=== PATIENT | female | born 1945 | race Caucasian/White ===

== ENCOUNTER → 2019-07-02 | Outpatient (CLI) | payer MEDICARE, SELFPAY ==
[2017-06-25 15:40] VITALS: BMI 24.5
--- NOTE | 2019-07-02 13:55 | RAD_ITS ---
STUDY: X-RAY - LEFT FOOT CLINICAL: Female, 74 years old. Pain TECHNIQUE: 3 view(s) of the foot. COMPARISON: None. FINDINGS: There is no evidence of fracture or dislocation. There are advanced degenerative changes in the midfoot. There is pes planus noted. There are no radiodense foreign bodies. RAD/Foot min 3 Views IMPRESSION: No fracture or dislocation. Advanced degenerative changes in the midfoot. Pes planus. Electronically Signed: Rom Oreilly, at 14:38 EDT Tel , Service support ,
--- NOTE | 2019-07-02 13:55 | RAD_ITS ---
STUDY: X-RAY - RIGHT FOOT CLINICAL: Female, 74 years old. Pain TECHNIQUE: 3 view(s) of the foot. COMPARISON: None. FINDINGS: There is no evidence of fracture or dislocation. There are advanced degenerative changes in the midfoot. There is has clot is noted. There are no radiodense foreign bodies. RAD/Foot min 3 Views IMPRESSION: No fracture or dislocation of the right foot. Advanced degenerative changes in the midfoot. Pes planus. Electronically Signed: Rom Oreilly, at 14:26 EDT Tel , Service support ,
== END | disposition home or self-care (01) ==
PROVIDERS: Family Provider Family Medicine; PCP Family Medicine; Referring Provider Podiatrist; Visit Provider Podiatrist
DX: M19.071 Primary osteoarthritis, right ankle and foot (principal); M19.072 Primary osteoarthritis, left ankle and foot
CPT/HCPCS: 73630

== ENCOUNTER 2021-12-08 12:52 | Outpatient (CLI) | payer MEDICARE, OTHER, SELFPAY ==
[2021-12-13 18:07] LABS: Lyme IgG P18 Ab Absent (.); Lyme IgG P23 Ab Absent (.); Lyme IgG P28 Ab Absent (.); Lyme IgG P30 Ab Absent (.); Lyme IgG P39 Ab Absent (.); Lyme IgG P41 Ab Present (.); Lyme IgG P45 Ab Absent (.); Lyme IgG P58 Ab Absent (.); Lyme IgG P66 Ab Absent (.); Lyme IgG P93 Ab Absent (.); Lyme IgM P23 Ab Absent (.); Lyme IgM P39 Ab Absent (.); Lyme IgM P41 Ab Absent (.)
[2021-12-13 20:14] LABS: Lyme IgG WB Interpretation Negative (.); Lyme IgM WB Interpretation Negative (.)
== END 2021-12-08 23:59 | disposition short-term general hospital (02) ==
PROVIDERS: PCP Family Medicine; Referring Provider Physician Assistant; Visit Provider Physician Assistant
DX: S30.860A Insect bite (nonvenomous) of lower back and pelvis, initial encounter (principal); X58.XXXA Exposure to other specified factors, initial encounter
CPT/HCPCS: 36415; 86617

== ENCOUNTER 2022-01-24 12:43 | Outpatient (CLI) | payer MEDICARE, OTHER, SELFPAY ==
--- NOTE | 2022-01-24 12:50 | CT_ITS ---
STUDY: CT CHEST WITH CONTRAST REASON FOR EXAM: Female, 76 years old. Nonsmoker. Cough. MASS OF RT LUNG RADIATION DOSAGE (If Supplied By Facility): CTDIvol = ( 12.51 ) mGy, DLP = ( 501.21 ) mGycm TECHNIQUE: Transaxial imaging was performed following intravenous administration of IV 100mL Isovue-300. Multiplanar coronal and sagittal images were reformatted. Individualized dose optimization techniques were used for this CT. COMPARISON: None. FINDINGS: There is a 3.5 cm x 3.8 cm x 4.3 cm mass in the right upper lobe. This abuts the right hilar region. A neoplastic process should be ruled out. Biopsy is recommended. There is no demonstrated pleural abnormality. Normal heart and pericardium. Normal mediastinum. Normal hilar regions. Normal enhanced pulmonary arteries. There is atherosclerotic calcification of the aortic arch. There are multi-level degenerative changes of the thoracic spine. There is a 1.4 cm sclerosis seen in the posterior aspect of the T9 or T10 vertebrae at the level of the pedicle on the right side. Correlation with a bone scan is recommended. There is a 1 cm cyst in the medial inferior aspect of the right lobe of the liver. CT/Chest WITH Contrast IMPRESSION: 3.5 cm x 3.8cm x 4.3 cm mass in the right upper lobe. A neoplastic process should be ruled out. Biopsy recommended. Heterogeneous density in the posterior right T9 or T10 vertebrae. Correlation with the bone scan is recommended. Electronically Signed: Bigg Chris MD at 14:45 EST ,
[2022-01-24 13:21] LABS: CREATININE FINGERSTICK 0.7 mg/dL (0.55-1.02); EGFR FINGERSTICK > 60.0000 mL/min (>60)
== END 2022-01-24 23:59 | disposition home or self-care (01) ==
LOC: CT 12:48
PROVIDERS: PCP Family Medicine; Referring Provider Family Medicine; Visit Provider Family Medicine
DX: R91.8 Other nonspecific abnormal finding of lung field (principal)
CPT/HCPCS: 71260; Q9967

== ENCOUNTER 2022-02-06 08:32 | Outpatient (CLI) | payer MEDICARE, OTHER, SELFPAY ==
[2022-02-02 16:24] LABS: Absolute Lymphocyte Count 1.74 X10^3/uL (0.83-4.51); Absolute Neutrophil Count 4.4 X10^3/uL (2.0-7.7); Basophil# 0.05 X10^3/uL; Basophil% 0.8 % (0-1); Eosinophil# 0.03 X10^3/uL; Eosinophils% 0.5 % (0-5); Hematocrit 38.9 % (37-47); Hemoglobin 13.1 g/dL (12.0-15.0); Lymphocyte # 1.74 X10^3/ul (0.83-4.51); Lymphocyte % 26.1 % (19-41); Mean Corp Hgb Conc 33.7 g/dL (32-36); Mean Corpuscular Hgb 30.9 pg (27.0-32.0); Mean Corpuscular Volume 91.7 fL (81-99); Mean Platelet Vol. 10.2 fl (6.2-12.0); Monocyte# 0.44 X10^3/uL; Monocyte% 6.6 % (0-10); NRBC Flagged by Analyzer 0 % (0-5); Neutrophil # 4.39 X10^3/uL (2.7-7.7); Neutrophil % 65.8 % (47-70); Platelet Count 267 K/mm3 (150-450); RBC Distribution Width CV 12.1 % (11.6-14.6); RBC Distribution Width SD 40.6 fl (35.1-43.9); Red Blood Count 4.24 M/mm3 (4.2-5.4); White Blood Count 6.7 K/mm3 (4.4-11.0)
[2022-02-02 16:56] LABS: Anion Gap 4 (5-15); BUN 25 mg/dL (7-18); BUN/Creat Ratio 39.5 RATIO (10-20); Calcium,Total 9.2 mg/dL (8.5-10.1); Chloride 104 mmol/L (98-107); Creatinine, Serum 0.63 mg/dL (0.55-1.02); EST Glomerular Filtration Rate 97 mL/min (>60); Est Glom Filt Rate - Afr Amer 118 mL/min (>60); Glucose 142 mg/dL (74-106); Potassium 3.8 mmol/L (3.5-5.1); Sodium Level 138 mmol/L (136-145)
[2022-02-02 17:32] LABS: International Normalized Ratio 1.1; Partial Thromboplast Time 26.8 Seconds (24.1-36.2); Prothrombin Time (Protime)PT. 13.2 SECONDS (11.7-14.9)
[2022-02-06] VITALS (7 sets, daily range): BP systolic 109–182; BP diastolic 48–90; PULSE 52–60; RESP 16–18; TEMP 36.8; O2SAT 98–100; BMI 21.8
--- NOTE | 2022-02-06 | IMM_PTH ---
PATIENT: PAUL FENG LOC: [facility] U#:[id number] AGE/SX: 76/F ROOM: RE02/06/[address]: Dr. Tung Quach MD : 1945 BED: DIS: 02/06/2022 SPEC #: [id number] RECD: 02/06/22 13:44 STATUS: DONYA REThiago #: [id number] BILLY: 02/06/22 00:[address]: Tung Quach DEPT: IMMUNOHISTOCHEMISTRY RECD BY: Li Aldrich Tissues: Right lung, NOS Procedures: RCC (add) NAPSIN A (add) CK20 (add) CK5-6 (add) CK7 (add) CK8 (add) HEP PAR (add) SD (add) TTF1 (add) Pankeratin (add) P40 (add) ER (initial) PHYSICIAN & INSTITUTION [place] [phone] SPECIMEN INFORMATION: Tissue Source: Right lung Clinical Info: Right lung mass Specimen Number: [id number] CPT code: 52470, 33584 x11 METHODOLOGY: Deparaffinized sections of prefer/formalin-fixed tissue or PAP/DQ stained slides are incubated with monoclonal/polyclonal antibodies/oligonucleotide probes. Localization is made via biotin free immunoperoxidase method. Appropriate controls are performed and reacted as expected. Results on target cell population are indicated in the following table: RESULTS: ANTIBODY / CLONE RESULT ER (6F11) positive, focal and weak SD (1E2) negative AE1-3 (AE1/AE3/PCK26) positive CK7 (OV-TL12/30) positive CK8 (03exspU25) positive CK20 (KS20.8) positive, rare cells TTF-1 (8G7G3/1) positive Napsin A (Rabbit Polyclonal) positive HepPar (OCh1E5) negative RCC (PN-15) negative CK5-6 (D5 & 1684) negative P40 (BC28) positive, rare cells These tests were developed and their performance characteristics determined by [facility]. They may not have been cleared or approved by the U.S. Food and Drug Administration. The FDA has determined that such clearance or approval is not necessary. The above immunohistochemical/dualISH markers are ordered and reviewed by the Pathologist. INTERPRETATION: Right lung, CT-guided core biopsy: Non-small cell carcinoma, favor adenocarcinoma, consistent with lung primary. BRITTNEY:tanvir 02/08/2022
--- NOTE | 2022-02-06 08:36 | CT_ITS ---
PROCEDURE: CT GUIDED CORE NEEDLE BIOPSY OF A right upper lobe LUNG LESION INDICATION: Female, 76 years old. MASS ON RIGHT LUNG PHYSICIAN: Dr. SYLVESTER Antonio CONSENT: Written informed consent was obtained having explained the risks, benefits and alternatives in detail with the patient who accepted the risks and agreed to proceed. Laboratory review and clinical assessment was performed. CONSCIOUS SEDATION PROTOCOL: The Drugs used were: 2 mg Versed, IV., and 50 mcg Fentanyl, IV. The sedation time was: 15 minutes. The conscious sedation protocol was independently monitored. RADIATION DOSAGE (If Supplied By Facility): CTDIvol = ( 16 ) mGy, DLP = ( 624.53 ) mGycm Individualized dose optimization techniques were used for this CT. TECHNIQUE: The patient was placed in the left side down decubitus position. A noncontrast CT was performed to localize the lesion in the right upper lobe . The skin surface was prepped and draped in a sterile fashion. 1% lidocaine was used for local anesthesia. Using CT guidance, a 20-gauge coaxial biopsy device was advanced to the periphery of the lesion. A total of 4 core specimens were obtained. The specimens were placed in a formalin solution. A post procedure CT demonstrated no adverse sequelae or pneumothorax. The patient tolerated the procedure well without adverse event. A negative biopsy does not exclude malignancy. Further imaging or clinical followup based on patient condition and degree of clinical suspicion for malignancy. Suggest rebiopsy, if biopsy results do not match with clinical scenario. CT/Biopsy/Inj or Needle Placement IMPRESSION: 1. CT directed core needle biopsy of the right upper lobe nodule using CT image guidance with image documentation as described. Pathology results are pending. 2. Conscious Sedation protocol utilized with independent monitoring. Electronically Signed: Bigg Chris MD at 11:51 EDT ,
--- NOTE | 2022-02-06 09:30 | ASPIGT_PTH ---
PATIENT: PAUL FENG LOC: [facility] U#:[id number] AGE/SX: 76/F ROOM: RE02/06/[address]: Dr. Tung Quach MD : 1945 BED: DIS: 02/06/2022 SPEC #: [id number] RECD: 02/06/22 10:00 STATUS: DONYA MONTAGUE #: [id number] BILLY: 02/06/22 09:[address]: Tung Quach DEPT: SURGICAL PATHOLOGY RECD BY: Raegan Caba Tissues: Lung, NOS Procedures: FNA Specimen Adequacy Special Stain Group II Surgery Specimen Level IV Imprint (control) HEADER OPERATION: CT-guided right lung biopsy PRE-OP DIAGNOSIS: Right lung mass TISSUE SUBMITTED: Right lung 20-gauge core biopsy x4 MICROSCOPIC DIAGNOSIS Right lung mass, CT-guided core biopsy: Non-small cell carcinoma, favor adenocarcinoma, consistent with lung primary. See comment. BRITTNEY:tanvir 02/07/2022 COMMENT The specimen is evaluated at the time of biopsy by Dr. Alvarez. Immediate Evaluation = Malignant cells present derived from non-small cell carcinoma. Immunohistochemistry ([id number]) supports the above diagnosis. Molecular studies on the tumor can be performed if clinically indicated. Please notify the laboratory if they are needed. Case has been reviewed in consultation with Dr. Carter who concurs with the above diagnosis. IDC:[email or web address] MICROSCOPIC DESCRIPTION Slides are reviewed. GROSS DESCRIPTION Received in fixative is one container labeled with the patient's name and designated right lung. The specimen consists of multiple irregular and elongated fragments of terrell tissue that in aggregate measure 1.3 x 0.2 x <0.1 cm. The specimen is totally submitted in one cassette. Two touch imprints are prepared at the time of core biopsy. / AM:tanvir 02/06/2022 TC:0 CPT: 65827, 75210 ADDENDUM ADDENDUM ADDENDUM ADDENDUM ADDENDUM ADDENDUM ADDENDUM ADDENDUM ADDENDUM ADDENDUM ADDENDUM ADDENDUM ADDENDUM ADDENDUM 02/22/2022 09:41 ADDENDUM 02/22/2022 09:41 ADDENDUM 02/22/2022 09:41 ADDENDUM 02/22/2022 09:41 ADDENDUM 02/22/2022 09:41 PD-L1 (KEYTRUDA) IMMUNOHISTOCHEMICAL ANALYSIS FROM [facility] RESULTS: Tumor proportion score: <1% / Negative [facility] NEXT GENERATION SEQUENCING GENE FUSION PANEL FROM [facility] INTERPRETATION: NEGATIVE: No pathogenic gene fusions detected involving ALK, MERI, BRAF, CCND1, EGFR, FGFR1, FGFR2, FGFR3, MET, NRG1, NTRK1, NTRK2, NTRK3, PPARG, RAF1, RET, ROS1 or THADA. Tumor Cellularity: 10-20% Tumor Type: Non-small cell lung carcinoma. Please see complete report in e-chart or EMR
[2022-02-06] MEDS: Midazolam 2 MG/2 ML Syringe IV (09:47)
[2022-02-06] MEDS: Lidocaine 2% (20 ml mdv) 20 ML Vial INFILT (09:47)
[2022-02-06] MEDS: fentaNYL 100 MCG/2 ML Ampul IV (09:47)
--- NOTE | 2022-02-06 10:00 | RAD_ITS ---
ACR Level 3 findings have been noted. An addendum which confirms receipt of the report will follow. HISTORY: 0945 -- Immediately post lung biopsy. TECHNIQUE: XR Chest 2 Views. # of images incl. paperwork: 4. COMPARISON: CT 01/24/2022. FINDINGS: CARDIOMEDIASTINAL STRUCTURES: Cardiac silhouette not enlarged. Mediastinal contour unremarkable with calcification of the aorta. LUNGS: Round mass in the right midlung again seen. PLEURA: Mild right apical pneumothorax. OSSEOUS STRUCTURES: Degenerative change. RAD/Chest Insp/Exp 2 View IMPRESSION: Mild right apical pneumothorax status post biopsy of right lung mass. at 1101 Reported and signed by: Johanne Sheridan MD Electronically Signed: Johanne Sheridan MD at 11:00 EDT ,
--- NOTE | 2022-02-06 12:00 | RAD_ITS ---
STUDY: X-RAY CHEST REASON FOR EXAM: Female, 76 years old. Pneumothorax -- 2 hours post lung biopsy TECHNIQUE: AP inspiration and expiration views. COMPARISON: Comparison is made with prior study done earlier in the day. FINDINGS: Stable small right apical pneumothorax. The patient is asymptomatic. RAD/Chest Insp/Exp 2 View IMPRESSION: Stable small right apical pneumothorax. The patient is asymptomatic. Electronically Signed: Bigg Chris MD at 12:45 EDT ,
== END 2022-02-06 23:59 | disposition home or self-care (01) ==
LOC: LAB 08:35
PROVIDERS: PCP Family Medicine; Referring Provider Family Medicine; Visit Provider Family Medicine
DX: C34.11 Malignant neoplasm of upper lobe, right bronchus or lung (principal); E11.65 Type 2 diabetes mellitus with hyperglycemia; I70.0 Atherosclerosis of aorta; E78.00 Pure hypercholesterolemia, unspecified; I10 Essential (primary) hypertension; Z79.899 Other long term (current) drug therapy; Z79.84 Long term (current) use of oral hypoglycemic drugs
CPT/HCPCS: 32408; 36415; 71046; 77012; 80048; 85025; 85610; 85730; 88172; 88305; 88313; 88341; 88342; J7040

== ENCOUNTER 2022-08-07 13:20 | Emergency (ER) | payer MEDICARE, OTHER, SELFPAY ==
[2022-08-07 13:21] VITALS: BP 150/90; PULSE 79; RESP 16; TEMP 36.3; O2SAT 99; BMI 20.7
[2022-08-07 14:20] VITALS: BP 185/88; PULSE 72; RESP 18
--- NOTE | 2022-08-07 15:11 | EKG12_ITS ---
Test Reason : CP Blood Pressure : / mmHG Vent. Rate : 078 BPM Atrial Rate : 078 BPM P-R Int : 182 ms QRS Dur : 132 ms QT Int : 416 ms P-R-T Axes : 054 -63 016 degrees QTc Int : 474 ms Normal sinus rhythm Right bundle branch block Left anterior fascicular block Bifascicular block Inferior infarct , age undetermined Abnormal ECG Confirmed by ANALILIA CHAVEZ, PAULINE ([id number]), general expeditor JOHN DEE ([id number]) on 08/09/2022 1:42:53 PM Referred By: Confirmed By:PAULINE BILLINGSLEY MD
--- NOTE | 2022-08-07 15:11 | RAD_ITS ---
INDICATION: chest pain EXAMINATION/TECHNIQUE: X-RAY - XR Chest 1 View COMPARISON: 02/06/2022.. FINDINGS: LINES/DEVICES: None. LUNGS: Soft tissue density visualized along the medial aspect of the right hemothorax consistent with the right middle lobe collapse that can be explained by the previously visualized mass encircling the right middle lobe bronchi thus most likely causing compression or infiltration fundus of the the right middle lobe collapse. Prominence of the right hilum is visualized, linear streaky opacities visualized in the right hilum. Haziness overlying the right hemithorax and right costophrenic angle is seen. The left hemithorax demonstrates unremarkable aeration. Biapical prominence is seen. MEDIASTINUM AND CARDIOVASCULAR STRUCTURES: Cardiac silhouette is unremarkable. BONES AND SOFT TISSUES: Unremarkable. Degenerative bone changes. RAD/Chest 1 View (Portable) IMPRESSION: Suggestion of right middle lobe collapse secondary to the previous visualized mass. Electronically Signed: Berny Koehler MD at 15:43 EDT ,
--- NOTE | 2022-08-07 15:19 | ED.VIS.CHEST ---
HPI History of Present Illness Chief Complaint: Chest Pain Informant: patient Onset/Context/Timing Onset: - (Sunday) Activity at onset: gradual Timing: Intermittent Quality: Positive for Pain Location: Substernal Current Severity: Gone Maximum Severity: Mild Worsened By: Nothing Relieved By: Nothing Associated Symptoms: Negative for Nausea, Vomiting, Diaphoresis, Dyspnea, Cough, Fever, Lightheadedness, Acid Reflux or Palpitations Narrative Narrative: 77-year-old female history of hypertension, diabetes, stage II lung cancer non-small cell and transient A. fib. Patient recently underwent partial lung resection of her right lung done at the [facility] June 27. She was hospitalized for several days. Had transient A. fib but that is since resolved. Sunday had her second COVID booster. Overnight Sunday morning she had intermittent episodes of chest discomfort. Primarily anterior. She also had chills that she thought she was a getting her immune response to her booster. Also describes it as chest tightness she is never had a DVT or PE. She denies any pleuritic chest pain. She denies any hemoptysis. Denies any leg pain or swelling. Prior Similar Symptoms: No Recent Illness/Hospitalization: Yes CVD Risk Factors: Positive for Hypertension and Diabetes; Negative for Hypercholesterolemia or Smoking PE Risk Factors: Positive for Recent Immobilization; Negative for Recent Travel/Surgery, Prior DVT or PE, Cancer or OCP + Smoking + >/=35 TAD Risk Factors: Negative for Marfan's Syndrome PFSH PFS Home Medications lisinopril 10 mg tablet (Zestril) 10 mg PO DAILY #30 tabs 06/25/17 [Rx Last Taken 02/06/22] rosuvastatin 10 mg tablet 10 mg PO QHS 06/25/17 [History Last Taken 06/24/17] alendronate 70 mg tablet 70 mg PO QWEEK 02/06/22 [History Last Taken Unknown] metformin 500 mg tablet 500 mg PO BID 02/06/22 [History Last Taken Unknown] Allergy/AdvReac Type Severity Reaction Status Date / Time ciprofloxacin [From Cipro] Allergy Other Verified 08/07/22 13:23 meperidine [From Demerol] Allergy Rash Verified 08/07/22 13:23 Social History Smoking Status: Never smoker ROS ROS ED ROS Narrative Denies recent illness. Chest discomfort Sunday. Nonexertional. Review of Systems ROS Unobtainable: Denies due to encephalopathy Constitutional Constitutional ED: Reports chills; Denies fever(s) Eyes Eyes: Reports none ENT ENT ED: Denies ear pain Cardiovascular Cardiovascular: Reports chest pain; Denies palpitations or racing heartbeat Respiratory/Chest Respiratory/Chest: Denies cough or dyspnea Gastrointestinal Gastrointestinal: Denies abdominal pain Genitourinary Genitourinary ED: Denies dysuria or hematuria Musculoskeletal Musculoskeletal: Denies arthralgias Integumentary Denies abscess Neurologic Neurologic: Denies headache(s) Psychiatric Psychiatric: Denies anxiety Endocrine Endocrinology: Denies cold intolerance Hematologic/Lymphatic Hematologic/Lymphatic: Denies easy bleeding Allergic/Immunologic Allergic/Immunologic ED: Denies mouth swelling EXAM Physical Exam Narrative Exam Narrative: Since had no fever no acute distress vital signs stable afebrile. Pulse ox 90% on room air no signs of hypoxia. H EENT exam unremarkable. Neck nontender no JVD no lymphadenopathy. Lungs clear to auscultation bilaterally. Heart regular rate and rhythm rate about 80 no murmur. Abdomen soft nontender. Chest were nontender. Moving all 4 extremities. Equal symmetrical radial pulses. Legs nontender, no edema no calf tenderness. No cords. Neurologically she is awake and alert. Const Vital Signs: 08/07/22 13:21 08/07/22 15:06 08/07/22 14:20 Temperature 97.4 F L Temperature Source Temporal Pulse Rate 79 72 Respiratory Rate 16 18 Respiratory Effort Normal Non-Labored Blood Pressure 150/90 H 185/88 H Blood Pressure Mean 110 120 Pulse Ox 99 Oxygen Delivery Method Room Air 08/07/22 15:11 08/07/22 16:44 Temperature Temperature Source Pulse Rate 67 Respiratory Rate 16 Respiratory Effort Blood Pressure 143/87 H Blood Pressure Mean 105 Pulse Ox 100 Oxygen Delivery Method Room Air Room Air Positive well nourished and well developed; Negative for obese, cachectic, contractures or unkempt General Appearance ED: well developed and NAD; Negative for unkempt, cachectic, contractures or pallor Nutritional Appearance: Negative for cachectic or obese HEENT Reports moist mucous membranes normocephalic and atraumatic; Negative for trauma or tenderness Eyes PERRL and EOMs intact bilaterally General Eye ED: Negative for pale conjunctiva, scleral icterus or other Neck no lymphadenopathy, supple and no JVD General: Negative for tenderness Chest Wall inspection of chest normal and palpation of chest normal Chest: Negative for tenderness Resp normal respiratory effort and clear to auscultation bilaterally Effort and Inspection: Negative for respiratory distress Auscultation: Negative for rales, rhonchi or wheezes Cardio regular rate, regular rhythm, S1 normal heart sound, S2 normal heart sound and no murmurs Rate: Negative for bradycardia Rhythm: Negative for abnormal rhythm GI normal to inspection, nondistended, normoactive bowel sounds, soft to palpation, non-tender, non-distended and no masses Auscultation: Negative for hyperactive bowel sounds Palpation: Negative for splenomegaly Back/Spine no CVA tenderness and no thoracic nor lumbar tenderness General Back: Negative for CVA tenderness Cervical Spine: Negative for cervical spine tenderness Extremity normal to inspection General Extremety ED: Negative for edema General Extremity: Negative for edema Neuro oriented x3 and CN's II-XII intact bilaterally Sensorium / Orientation: awake, alert, oriented to person, oriented to place and oriented to time; Negative for confused, lethargic or stuporous Motor Exam: strength 5/5 throughout Psych mental status grossly normal Appearance: Negative for unkempt Attitude: No agitated Mood & Affect: Negative for depressed, anxious or tearful Skin no rashes or lesions noted and no wounds General Skin Exam: Negative for jaundice or pallor Rashes: No rashes noted Trauma: Negative for abrasion MDM MDM MDM Narrative Medical decision making narrative: 71-year-old female with atypical chest pain. Rule out cardiac etiology. My clinical suspicion is low for that. Is not exertional and she has no history of coronary disease. She has had recent lung surgery due to a cancer and transient A. fib. Consider blood clot also. Cardiac work-up will be done along with a D-dimer. Repeat exam patient is doing well at 5:50 PM. She will be discharged home. Lab Data Attestation: I reviewed the patient's lab results. Lab results narrative: CBC shows white count 4.3. H&H 13.8 and 40.8. Electrolytes unremarkable gap of 6 BUN of 20 creatinine 0.6. Glucose 102. Troponin 19. D-dimer elevated 1.41 therefore a CTA of the chest to be obtained. Chest x-ray shows chronic changes no acute process. CTA shows no PE. However discussed with patient possible bony metastases and thoracic spine. Labs: Laboratory Results - last 24 hr 08/07/22 08/07/22 08/07/22 15:10 15:10 15:10 WBC 4.3 L RBC 4.27 Hgb 13.8 Hct 40.8 MCV 95.6 MCH 32.3 H MCHC 33.8 RDW Std Deviation 43.6 RDW Coeff of Medardo 12.4 Plt Count 253 MPV 9.6 Immature Gran % (Auto) 0.200 Neut % (Auto) 56.9 Lymph % (Auto) 29.8 [place] % (Auto) 11.9 H Eos % (Auto) 0.7 Baso % (Auto) 0.5 Absolute Neuts (auto) 2.5 Absolute Lymphs (auto) 1.28 Nucleated RBC % 0 D-Dimer Quant (PE/DVT) 1.41 H* Sodium 140 Potassium 4.0 Chloride 105 Carbon Dioxide 29.0 Anion Gap 6 BUN 20 H Creatinine 0.64 Estim Creat Clear Calc 49.69 Est GFR (MDRD) Af Amer 115 Est GFR (MDRD) Non-Af 95 BUN/Creatinine Ratio 31.1 H Glucose 102 Calcium 9.7 Troponin I High Sens 19 Radiography Chest X-Ray - ED: 1 View, Read by ED Physician, Read by Radiologist, Normal, Heart, Lungs, Mediastinum, Bony Structures, No Acute Disease and Chronic Changes Diagnostic Testing: Clinical Impression(s) from Imaging Studies Chest X-Ray 08/07/22 15:11 IMPRESSION: Suggestion of right middle lobe collapse secondary to the previous visualized mass. Electronically Signed: Berny Koehler MD at 15:43 EDT Reading Location ID and State: [facility] / [place] Tel , Service support , Chest CTA 08/07/22 16:48 IMPRESSION: 1. No evidence of pulmonary embolus. 2. No aortic dissection or aneurysm. 3. Status post resection of the right middle lobe. There is residual soft tissue density adjacent to the right hilum in the right upper lobe. Question residual tumor. 4. Right pleural effusion not previously noted. 5. Mildly increased mediastinal lymphadenopathy when compared to prior study 6. Question metastatic process involving the T10 vertebra. This is becoming more extensive when compared to prior study. Electronically Signed: Jean Funez DO at 17:24 EDT Reading Location ID and State: [address] [place] [address] Tel [phone], Service support , NoChest x-ray, portable, single view interpreted by myself and the radiologist shows some middle lobe collapse consistent with a prior mass. Trait. No pneumothorax. Chronic changes no acute process. Rhythm Strip Rhythm Strip: Sinus Rhythm Rate: 78 Ectopy: None EKG Initial EKG: Attestation: I personally reviewed and interpreted this EKG as follows: Interpretation: Sinus Rhythm and No Acute Injury Pattern Comments: Normal sinus rhythm rate of 78 no acute signs of [place] or ischemia. Right bundle branch block. Left anterior fascicular block. Unchanged from prior EKG from 2017. The bifascicular block is new. Discharge Plan Triage Chief Complaint: Chest Pain ED Provider: Reginaldo Chavez Dx/Rx/DC Orders Clinical Impression: Chest pain of uncertain etiology, History of lung cancer, History of atrial fibrillation, History of diabetes mellitus Instructions: ED Chest Pain, Uncertain Cause Prescriptions: No Action rosuvastatin 10 MG tablet 10 mg PO QHS Label Comments: CHOLESTEROL lisinopril [Zestril] 10 MG tablet 10 mg PO DAILY Qty: 30 0RF metformin [Glucophage] 500 mg Tablet 500 mg PO BID alendronate 70 mg Tablet 70 mg PO QWEEK Primary Care Provider: Tung Quach Referrals: Tung Quach MD [Primary Care Provider] - As Needed Activity Restrictions/Additional Instructions: Follow-up with your primary care physician Your test today were unremarkable other than a questionable lesion on your thoracic spine seen on the CAT scan which will need further evaluation if this was not already known. Disposition Disposition: Home, Self Care
[2022-08-07 15:49] LABS: Absolute Lymphocyte Count 1.28 X10^3/uL (0.83-4.51); Absolute Neutrophil Count 2.5 X10^3/uL (2.0-7.7); Basophil# 0.02 X10^3/uL; Basophil% 0.5 % (0-1); Eosinophil# 0.03 X10^3/uL; Eosinophils% 0.7 % (0-5); Hematocrit 40.8 % (37-47); Hemoglobin 13.8 g/dL (12.0-15.0); Lymphocyte # 1.28 X10^3/ul (0.83-4.51); Lymphocyte % 29.8 % (19-41); Mean Corp Hgb Conc 33.8 g/dL (32-36); Mean Corpuscular Hgb 32.3 pg (27.0-32.0); Mean Corpuscular Volume 95.6 fL (81-99); Mean Platelet Vol. 9.6 fl (6.2-12.0); Monocyte# 0.51 X10^3/uL; Monocyte% 11.9 % (0-10); NRBC Flagged by Analyzer 0 % (0-5); Neutrophil # 2.45 X10^3/uL (2.7-7.7); Neutrophil % 56.9 % (47-70); Platelet Count 253 K/mm3 (150-450); RBC Distribution Width CV 12.4 % (11.6-14.6); RBC Distribution Width SD 43.6 fl (35.1-43.9); Red Blood Count 4.27 M/mm3 (4.2-5.4); White Blood Count 4.3 K/mm3 (4.4-11.0)
[2022-08-07 15:51] LABS: Anion Gap 6 (5-15); BUN 20 mg/dL (7-18); BUN/Creat Ratio 31.1 RATIO (10-20); Calcium,Total 9.7 mg/dL (8.5-10.1); Chloride 105 mmol/L (98-107); Creatinine, Serum 0.64 mg/dL (0.55-1.02); EST Glomerular Filtration Rate 95 mL/min (>60); Est Glom Filt Rate - Afr Amer 115 mL/min (>60); Estimated Creatinine Clearance 49.69 ml/min; Glucose 102 mg/dL (74-106); Sodium Level 140 mmol/L (136-145); Troponin-I HS (w/2H Reflex) 19 pg/mL (3.0-54.0)
[2022-08-07 16:14] LABS: D-Dimer Quantitative (DVT/PE) 1.41 FEU/ug/m (0.27-0.49)
[2022-08-07 16:44] VITALS: BP 143/87; PULSE 67; RESP 16; O2SAT 100
--- NOTE | 2022-08-07 16:48 | CT_ITS ---
STUDY: CTA CHEST REASON FOR EXAM: Female, 77 years old. Elevated d-dimer. RADIATION DOSAGE (If Supplied By Facility): CTDIvol = ( 5.53 ) mGy, DLP = ( 180.04 ) mGycm TECHNIQUE: The examination was performed with the intravenous administration of IV 100mL Isovue-370. Post-processing of the angiographic images was performed, with multiplanar reformation and 3D reconstruction. Individualized dose optimization techniques were used for this CT. COMPARISON: Chest, 08/07/2022. CT of the chest, 01/24/2022. FINDINGS: Normal enhancement of the main pulmonary artery and right and left pulmonary arteries. Normal enhancement of the bilateral peripheral pulmonary arteries. There is no demonstrated pulmonary embolism. Atherosclerotic tortuosity of the thoracic aorta without aneurysm. There is no demonstrated aortic dissection. Normal heart and pericardium. Minimal coronary artery calcifications. Mildly increased mediastinal lymphadenopathy when compared to prior study. Normal hilar regions. Normal visualized trachea and bronchi. The lungs are well expanded. There is surgical absence of the right middle lobe. There is associated thickening and stranding along the oblique fissure. The anterior hilar region the site of the surgical resection, there is soft tissue densities in the upper lobe which may represent residual mass. Similar soft tissue density extends posteriorly along the oblique fissure. There is a moderate right pleural effusion with subsegmental atelectasis. Normal chest wall structures. There are degenerative changes of thoracic spine. There is a sclerotic focus in the right posterior T10 vertebra extending into the pedicle. There is a cyst in segment 1 of the liver which appears unchanged. CT/CTA Chest W/WO Contrast IMPRESSION: 1. No evidence of pulmonary embolus. 2. No aortic dissection or aneurysm. 3. Status post resection of the right middle lobe. There is residual soft tissue density adjacent to the right hilum in the right upper lobe. Question residual tumor. 4. Right pleural effusion not previously noted. 5. Mildly increased mediastinal lymphadenopathy when compared to prior study 6. Question metastatic process involving the T10 vertebra. This is becoming more extensive when compared to prior study. Electronically Signed: eJan Funez DO at 17:24 EDT Reading Location ID and State: [address] [place] [address] Tel [phone], Service support ,
[2022-08-07 17:23] LABS: Reflex Troponin-HS? (from REC) Y
[2022-08-07 17:56] LABS: Troponin-I HS 7 pg/mL (3.0-54.0)
[2022-08-07 18:12] VITALS: BP 159/69; PULSE 72; RESP 16; O2SAT 97
== END 2022-08-07 18:13 | disposition home or self-care (01) ==
PROVIDERS: Emergency Provider Emergency Medicine; PCP Family Medicine; Visit Provider Emergency Medicine
DX: R07.9 Chest pain, unspecified (principal); I48.91 Unspecified atrial fibrillation; E11.9 Type 2 diabetes mellitus without complications; I10 Essential (primary) hypertension; Z79.899 Other long term (current) drug therapy; Z79.84 Long term (current) use of oral hypoglycemic drugs
CPT/HCPCS: 71045; 71275; 80048; 84484; 85025; 85379; 93005; 99284; Q9967; A4216

== ENCOUNTER → 2022-09-28 | Outpatient (CLI) | payer MEDICARE, OTHER, SELFPAY ==
--- NOTE | 2022-09-28 16:25 | RAD_ITS ---
STUDY: X-RAY - PELVIS AND RIGHT HIP REASON FOR EXAM: Female, 77 years old. HIP PAIN TECHNIQUE: 3 views of the pelvis and hip. COMPARISON: None. FINDINGS: There is a non-specific bowel gas pattern. Normal visualized soft tissue structures. Normal bilateral iliac wings, sacroiliac joints and visualized sacrum. Normal bilateral superior and inferior pubic rami. Normal pubic symphysis. Normal bilateral ischial tuberosities. Normal visualized femoral head. Normal acetabulum. Normal hip joint. RAD/HIP, UNI W/ Pelvis 2-3 Views IMPRESSION: Normal x-ray examination of the pelvis and hip. Electronically Signed: Anthony Mcdonald MD at 18:01 EST ,
== END | disposition home or self-care (01) ==
LOC: MTRAD 16:24
PROVIDERS: PCP Family Medicine; Referring Provider Nurse Practitioner Family; Visit Provider Nurse Practitioner Family
DX: M25.551 Pain in right hip (principal)
CPT/HCPCS: 73502

== ENCOUNTER → 2023-04-11 | Outpatient (CLI) | payer MEDICARE, OTHER, SELFPAY ==
--- NOTE | 2023-04-11 18:12 | STRESSREP ---
Stress Test Report Exercise myocardial perfusion stress test. 78-year-old lady with a history of chest pain Stress protocol: Resting EKG demonstrates sinus bradycardia with a right bundle branch block and a rate of 54 bpm resting blood pressure is 122/84 mmHg. The patient exercised according to the regular Alex protocol for a total duration of 6 minutes and 10 seconds attaining a maximum heart rate of 126 bpm which was 88% of maximum predicted heart rate; the maximum workload was 7.4 metabolic equivalents. At rest there were no ST or T wave changes noted to suggest ischemia and at peak exercise upsloping ST changes only were noted which did not meet the criteria for ischemia. No clinical angina was noted the test was terminated due to the target heart rate being achieved/fatigue. The peak blood pressure was 150/84 mmHg. Rate-pressure product was 16,500. Myocardial perfusion protocol. 11.5 mCi of technetium 99m sestamibi was injected at rest. The patient exercised according to regular Alex protocol for total duration of 6 minutes and 10 seconds and at peak exercise 33.8 mCi of technetium 99m sestamibi was injected stress images were obtained stress and rest images were reconstructed in comparing the short axis vertical long and horizontal long axis. Gated images were also obtained. Perfusion SPECT analysis: Review of the stress images demonstrate normal uptake of tracer noted in all areas of the myocardium. The resting images similarly demonstrate normal uptake of tracer noted in all areas of the myocardium. No areas of reversibility are noted to suggest ischemia no previous infarct was noted. Gated SPECT analysis: The gated ejection fraction is 84%. Conclusion: Normal exercise myocardial perfusion stress test at a moderate workload Preserved ejection fraction.
== END | disposition home or self-care (01) ==
LOC: CVS 07:14
PROVIDERS: PCP Family Medicine; Referring Provider Internal Medicine Cardiovascular Disease; Visit Provider Internal Medicine Cardiovascular Disease
DX: R07.9 Chest pain, unspecified (principal); E11.9 Type 2 diabetes mellitus without complications; R06.00 Dyspnea, unspecified; R06.02 Shortness of breath; I10 Essential (primary) hypertension; E78.5 Hyperlipidemia, unspecified
CPT/HCPCS: 78452; 93017; A9500; A4216

== ENCOUNTER → 2024-02-14 | Outpatient (CLI) | payer MEDICARE, OTHER, SELFPAY ==
[2024-02-14 12:04] LABS: Absolute Lymphocyte Count 1.32 X10^3/uL (0.83-4.51); Absolute Neutrophil Count 2.9 X10^3/uL (2.0-7.7); Basophil# 0.04 X10^3/uL; Basophil% 0.9 % (0-1); Eosinophil# 0.02 X10^3/uL; Eosinophils% 0.4 % (0-5); Hematocrit 43.5 % (37-47); Hemoglobin 13.9 g/dL (12.0-15.0); Lymphocyte # 1.32 X10^3/ul (0.83-4.51); Lymphocyte % 28.6 % (19-41); Mean Corpuscular Hgb 29.5 pg (27.0-32.0); Mean Corpuscular Volume 92.4 fL (81-99); Mean Platelet Vol. 9.9 fl (6.2-12.0); Monocyte# 0.31 X10^3/uL; Monocyte% 6.7 % (0-10); NRBC Flagged by Analyzer 0 % (0-5); Platelet Count 211 K/mm3 (150-450); RBC Distribution Width CV 12.8 % (11.6-14.6); RBC Distribution Width SD 43.2 fl (35.1-43.9); Red Blood Count 4.71 M/mm3 (4.2-5.4); White Blood Count 4.6 K/mm3 (4.4-11.0)
[2024-02-14 12:33] LABS: Vitamin D,25 Hydroxy 81.9 ng/mL
[2024-02-14 12:56] LABS: ALB/GLOB Ratio 1.1 RATIO (0.9-2.4); AST(SGOT) 24 U/L (15-37); Alanine Aminotransfer ALT/SGPT 25 U/L (13-56); Albumin, Serum 3.6 g/dL (3.2-5.0); Alkaline Phosphatase 59 U/L (45-117); Anion Gap 6 (5-15); BUN 20 mg/dL (7-18); BUN/Creat Ratio 25.5 RATIO (10-20); Calcium,Total 8.9 mg/dL (8.5-10.1); Chloride 107 mmol/L (98-107); Cholesterol 151 mg/dL (200); Creatinine, Serum 0.78 mg/dL (0.55-1.02); EST Glomerular Filtration Rate 75 mL/min (>60); Est Glom Filt Rate - Afr Amer 91 mL/min (>60); Globulin 3.3 g/dL (2.2-4.2); Glucose 137 mg/dL (74-106); High Density Lipoprotein 56 mg/dL; Potassium 4.2 mmol/L (3.5-5.1); Protein, Total 6.9 g/dL (6.4-8.2); Sodium Level 141 mmol/L (136-145); Triglycerides 72 mg/dL; Very Low Density Lipoprotein 14 mg/dL (5-40)
[2024-02-14 15:58] LABS: Microalbumin,Random Urine 27.3 mg/L (NO RANGE EST.)
== END | disposition home or self-care (01) ==
LOC: MTLAB 10:03
PROVIDERS: PCP Family Medicine; Referring Provider Family Medicine; Visit Provider Family Medicine
DX: E11.9 Type 2 diabetes mellitus without complications (principal); I10 Essential (primary) hypertension; M81.0 Age-related osteoporosis without current pathological fracture; E55.9 Vitamin D deficiency, unspecified
CPT/HCPCS: 36415; 80053; 80061; 82043; 82306; 82570; 85025

== ENCOUNTER → 2024-09-29 | Outpatient (CLI) | payer MEDICARE, OTHER, SELFPAY | END | disposition home or self-care (01) | LOC: BFHLAB 13:58 | PROVIDERS: PCP Family Medicine; Referring Provider Family Medicine; Visit Provider Family Medicine | DX: R30.0 Dysuria (principal) | CPT/HCPCS: 87086; 87088 ==

== ENCOUNTER → 2025-03-16 | Outpatient (CLI) | payer MEDICARE, OTHER, SELFPAY | END | disposition home or self-care (01) | LOC: SL 20:00 | PROVIDERS: PCP Family Medicine; Referring Provider Family Medicine; Visit Provider Family Medicine | DX: G47.33 Obstructive sleep apnea (adult) (pediatric) (principal) | CPT/HCPCS: 95811 ==

== ENCOUNTER → 2025-06-02 | Outpatient (CLI) | payer MEDICARE, OTHER, SELFPAY | END | disposition home or self-care (01) | LOC: LABSPEC 08:07 | PROVIDERS: PCP Family Medicine; Visit Provider Nurse Practitioner Family | DX: N39.0 Urinary tract infection, site not specified (principal) | CPT/HCPCS: 87086; 87088 ==

== ENCOUNTER → 2025-06-15 | Outpatient (CLI) | payer MEDICARE, OTHER, SELFPAY ==
[2025-06-15 15:41] LABS: Hematocrit 40.7 % (37-47); Hemoglobin 13.3 g/dL (12.0-15.0); Immature Granulocytes Count 0.010 X10^3/uL (0.0-0.0); Mean Corp Hgb Conc 32.7 g/dL (32-36); Mean Corpuscular Volume 92.7 fL (81-99); Mean Platelet Vol. 9.9 fl (6.2-12.0); NRBC Flagged by Analyzer 0 % (0-5); Platelet Count 236 K/mm3 (150-450); RBC Distribution Width CV 13.2 % (11.6-14.6); RBC Distribution Width SD 45.0 fl (35.1-43.9); Red Blood Count 4.39 M/mm3 (4.2-5.4); White Blood Count 4.6 K/mm3 (4.4-11.0)
[2025-06-15 16:05] LABS: Creatinine, Urine (random) 21.20 mg/dL (28.00-217.00); Microalbumin,Random Urine < 12.0 mg/L (<20 mg/L)
[2025-06-15 16:22] LABS: AST(SGOT) 22 U/L (<=31); Alanine Aminotransfer ALT/SGPT 18 U/L (<=34); Albumin, Serum 4.4 g/dL (3.4-4.8); Alkaline Phosphatase 69 U/L (35-104); Anion Gap 12 (5-15); BUN 19 mg/dL (4-19); BUN/Creat Ratio 24.9 RATIO (10-20); Calcium,Total 9.7 mg/dL (7.6-11.0); Carbon Dioxide 25.5 mmol/L (21.0-32.0); Chloride 103 mmol/L (98-108); Cholesterol 176 mg/dL (<=200); Globulin 2.9 g/dL (2.2-4.2); Glucose 115 mg/dL (70-99); Low Density Lipoprotein Calc. 91 mg/dL; Potassium 4.4 mmol/L (3.3-5.1); Triglycerides 68 mg/dL; Very Low Density Lipoprotein 14 mg/dL (5-40); cholesterol:hdl ratio screen 2.46
[2025-06-15 16:27] LABS: Vitamin D,25 Hydroxy 81.4 ng/mL (30-100)
== END | disposition home or self-care (01) ==
LOC: MTLAB 11:58
PROVIDERS: PCP Family Medicine; Referring Provider Family Medicine; Visit Provider Family Medicine
DX: E11.9 Type 2 diabetes mellitus without complications (principal); I10 Essential (primary) hypertension; M81.0 Age-related osteoporosis without current pathological fracture; E55.9 Vitamin D deficiency, unspecified
CPT/HCPCS: 36415; 80053; 80061; 82043; 82306; 82570; 85025

== ENCOUNTER → 2025-08-03 | Outpatient (CLI) | payer MEDICARE, OTHER, SELFPAY ==
--- NOTE | 2025-08-03 16:19 | RAD_ITS ---
PROCEDURE: L/S SPINE MIN 4 VIEWS 08/03/2025 REASON FOR EXAM: LUMBER DDD TECHNIQUE: Procedure Code: [id number] Modality: DX Procedure: L/S SPINE MIN 4 VIEWS COMPARISON: None. FINDINGS: Anterolisthesis L4 on L5 by 3 mm. Multilevel degenerate changes predominantly at L3-L4 and L5-S1 where there is disc space narrowing, sclerotic endplates and facet joint arthropathy. No acute bony abnormalities. No spondylolysis. Vascular atherosclerotic calcifications of the aorta. Large amount of fecal load in the colon. RAD/L/S Spine Min 4 Views IMPRESSION: Anterolisthesis L4 on L5 by 3 mm. Multilevel degenerate changes predominantly at L3-L4 and L5-S1 where there is d isc space narrowing, sclerotic endplates and facet joint arthropathy. Reading Location: [id number]
== END | disposition home or self-care (01) ==
LOC: MTRAD 16:18
PROVIDERS: PCP Family Medicine; Referring Provider Clinical Nurse Specialist Adult Health; Visit Provider Clinical Nurse Specialist Adult Health
DX: M51.369 Other intervertebral disc degeneration, 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 or lower extremity pain (principal)
CPT/HCPCS: 72110

== ENCOUNTER → 2025-09-28 | Outpatient (CLI) | payer MEDICARE, OTHER, SELFPAY | END | disposition home or self-care (01) | LOC: LABSPEC 12:22 | PROVIDERS: PCP Family Medicine; Visit Provider Family Medicine | DX: R82.90 Unspecified abnormal findings in urine (principal) | CPT/HCPCS: 87086; 87088 ==

== ENCOUNTER → 2025-10-05 | Outpatient (CLI) | payer MEDICARE, OTHER, SELFPAY ==
--- OUTSIDE RECORDS SUMMARY | 2025-10-05 18:23 | XMS RPT_ITS | CCD ---
Author Organization [facility] Care Team Providers Care Dog Bather Name Role Phone TONY HICKS DPM Unavailable Unavailable TONY HICKS DPM Unavailable Unavailable TONY HICKS DPJessica Unavailable Unavailable MIMI QUACH Unavailable Unavailable PROVIDER, UNKNOWN Unavailable Unavailable Ama Ybarra Unavailable Lex Vogel Unavailable Unavailable Unavailable Unavailable Mimi Quach Primary Care Provider PHILOMENA CHAVEZ, DR MIMI Rawls Primary Care Physician Un available Facundo WALTON, Pamela Unavailable Unavailable Juanita Jj Unavailable Unavailable Mimi Quach Korin Colbert Unavailable Unavailable Juanita Lentz RN Unavailable Unavailable Miim Quach Primary Care Provider Facundo WALTON, Pamela Unavailable Unavailable Kim DO, Roahn A Unavailable Mimi Quach Primary Care Provider Mimi Quach Primary Care Provider Facundo WALTON, Pamela Unavailable Unavailable Juanita Lentz RN Unavailable Unavailable Kim DO, Rohan A Unavailable MIMI QUACH Primary Care Unavailable PROVIDER, UNKNOWN Referring Unavailable MIMI QUACH Primary Care Unavailable PROVIDER, UNKNOWN Referring Unavailable MIMI QUACH Primary Care Unavailable PROVIDER, UNKNOWN Referring Unavailable MIMI QUACH Primary Care Unavailable PROVIDER, UNKNOWN Referring Unavailable Dr. Mimi Quach Primary Care Provider [phone] Trupti Atkins Attending Provider UnavailCinthia Hewitt Attending Provider Unavailable Dr. Mimi Quach Referring Provider Dr. Christopher Connors Attending Provider [phone] Christopher Connors Referring Provider [phone] Christopher Connors Other Provider Philomena CHAVEZ, Mimi Her Primary Care Provider Facundo RN, Pamela Unavailable Unavailable Philomena CHAVEZ, Mimi Her Primary Care Provider Michele CHAVEZ, Angy Ang Primary Care Provider Philomena CHAVEZ, Mimi Her Primary Care Provider Michele CHAVEZ, Angy Ang Primary Care Provider HARMONY YOUNG Attending Unavailable CHANG RILEY Referring Unavailable TOMCHAK, MIMI Rawls Primary Care Unavailable HARMONY YOUNG Attending Unavailable CHANG RILEY Referring Unavailable TOMCHAKMIMI Primary Care Unavailable CHANG RILEY Referring Unavailable TOMCHAKMIMI Primary Care Unavailable CHANG RILEY Referring Unavailable TOMCHAK, MIMI Rawls Primary Care Unavailable CHANG RILEY Referring Unavailable TOMCHAK, MIMI Rawls Primary Care Unavailable CHANG RILEY Referring Unavailable TOMCHAK, MIMI Rawls Primary Care Unavailable CHANG RILEY Referring Unavailable TOMCHAK, MIMI Rawls Primary Care Unavailable CHANG RILEY Referring Unavailable TOMCHAK, MIMI Rawls Primary Care Unavailable CHANG RILEY Referring Unavailable TOMCHAK, MIMI Rawls Primary Care Unavailable CHANG RILEY Referring Unavailable TOMCHAK, MIMI Rawls Primary Care Unavailable CHANG RILEY Referring Unavailable TOMCHAK, MIMI Rawls Primary Care Unavailable CHANG RILEY Referring Unavailable TOMCHAK, MIMI Rawls Primary Care Unavailable Fast DO, Ferdinand Lesvia Primary Care Provider Dr. Angy Bautista MD Primary Care Provider Dr. Angy Bautista MD Attending Provider [phone] Angy Bautista MD Referring Provider [phone] Nilam Valenzuela Attending Provider [phone] DAKSHA, FERDINAND LESVIA Primary Care Unavailable RAQUEL SOLORZANO Attending Unavailable [facility] Consulting Unavai lable GERIS, SHADY Admitting Unavailable DEXETR GUNTER Attending Unavailable FAST, FERDINAND LESVIA Primary Care Unavailable HURLEYDEXTER BUTLERNA Attending Unavailable MIEDEL, ANGY E Primary Care Unavailable SARAHI SIMMONS Referring Unavailable MIEDEL, ANGY E Primary Care Unavailable MIEDEL, ANGY E Primary Care Unavailable TESTRAKE, DORY Referring Unavailable MIEDEL, ANGY E Primary Care Unavailable TESTRAKE, DORY Attending Unavailable MIEDEL, ANGY E Primary Care Unavailable SELF Referring Unavailable SARAHI SIMMONS Attending Unavailable MIEDEL, ANGY E Primary Care Unavailable MIEDEL, ANGY E Primary Care Unavailable MIEDEL, ANGY E Primary Care Unavailable MASCI, ROHAN A Referring Unavailable MASCIROHAN A Attending Unavailable MIEDEL, ANGY E Primary Care Unavailable MASCI, ROHAN A Referring Unavailable MIEDEL, ANGY E Primary Care Unavailable MASCI, ROHAN A Referring Unavailable HURLEYDEXTER BUTLERNA Referring Unavailable MIEDEL, ANGY E Primary Care Unavailable HURLEYNAINA BUTLERIANNA Referring Unavailable MIEDEL, ANGY E Primary Care Unavailable TESTRAKE, DORY Referring Unavailable KLEBER WILLINGHAM Attending Unavailable MIEDEL, ANGY E Primary Care Unavailable TESTRAKE, DORY Referring Unavailable GOLIASJUAN DAVIDNT Attending Unavailable MIEDEL, ANGY E Primary Care Unavailable FAST, FERDINAND LESVIA Primary Care Unavailable AXEL VIZCAINO Attending Unavailabl e Dr. Angy Bautista MD Primary Care Physician Nilam Valenzuela Attending Physician [phone] Dr. Angy Bautista MD Attending Physician Dr. Angy Bautista MD Referring Provider NP. Tanya Mahoney Attending Physician NP. Tanya Mahoney Referring Provider Angy Bautista Attending Unavailable Michele, Angy Referring Unavailable Miedel, Angy Primary Care Unavailable Nilam Esquivel Attending Unavailable Michele, Angy Primary Care Unavailable Mijose franciscoel, Angy Primary Care Unavailable Chantell Bautistah Attending Unavailable Eduinel Angy Attending Unavailable Miedel, Angy Referring Unavailable Miedel, Angy Primary Care Unavailable Angy Bautista Primary Care Unavailable Tanya Mahoney Attending Unavailable Tanya Mahoney Referring Unavailable Allergies Allergy Classification Reported Allergen(s) Allergy Type Date of Onset Reaction(s) Facility Lactose (2 sources) Lactose Drug Allergy 10-10-20 16 Other: See Comments [facility] Opioid Agonists (2 sources) Meperidine Drug Allergy 12-06-19 10 [facility] Work Phone: (11 sources) Ciprofloxacin; Translations: [Cipro *FLUOROQUINOLONE S*] Drug Allergy 01-08-20 19 Other (See Comments) [facility] Work Phone: Comment on above: heavinessw in legs (12 sources) Meperidine; Translations: [Demerol *ANALGESICS - OPIOID*] Drug Allergy 08-07-20 22 Rash [facility] Work Phone: (4 sources) Lactose *PHARMACEUTICAL ADJUVANTS*; Translations: [Lactose *PHARMACEUTICAL ADJUVANTS*] drug allergy [facility] Work Phone: Comment on above: bloating pain and ga s (20 sources) Lactose; Translations: [LACTOSE] Drug Allergy 10-10-20 Other: See Comments, Other (See Comments) [facility] Work Phone: (20 sources) Meperidine; Translations: [MEPERIDINE (PF)] Drug Allergy 12-06-19 10 [facility] Work Phone: (1 source) Ciprofloxacin Drug Allergy Rash [facility] (1 source) Meperidine Drug Allergy Rash [facility] (1 source) ALLERGIES NOT ON FILE; Translations: [ALLERGIES NOT ON FILE] Propensity to adverse reactions (disorder) [facility] 2 Repository (4 sources) Meperidine; Translations: [MEPERIDINE] Drug Allergy 08-17-20 [facility] Repository (3 sources) Ciprofloxacin; Translations: [CIPROFLOXACIN] Drug Allergy 01-08-20 [facility] Repository (1 source) Lactose Drug Allergy 08-17-20 [facility] Repository Medications Current Medications Medication Drug Class(es) Dates Sig (Normalized) Sig (Original) alendronic acid 70 mg oral tablet (20 sources) Bisphosphonate Start: 02-06-2022 End: 07-03-2025 take 1 tablet by mouth every week Comment on above: 70 mg one time a wee k. Take 70 mg by mouth one time a week. aspirin 81 mg chewable tablet (11 sources) Platelet Aggregation Inhibitor, Nonsteroidal Anti-inflammatory Drug Start: 05-29-2025 End: 06-19-2025 take 1 tablet by mouth once daily aspirin 81 mg chewable tablet Take 81 mg by mouth once daily. 05/29/2025 Active Start: 02-22-2011 End: 02-23-2022 take 1 tablet by mouth once daily aspirin, enteric coated (ECOTRIN LOW STRENGTH) 81 mg ORAL EC tablet Take 1 tablet by mouth once daily. 0 02/22/2011 02/23/2022 Discontinued Comment on above: Take 1 tablet by elizabeth th once daily. carvedilol 3.125 mg oral tablet (5 sources) alpha-Adrenergic Mat, beta-Adrenergic Mat Start: 05-31-2025 End: 07-30-2025 take 1 tablet by mouth twice daily carvediloL (COREG) 3.125 MG tablet Take 1 (one) tablet (3.125 mg total) by mouth 2 (two) times a day . 60 tablet 1 05/31/2025 07/30/2025 Active Start: 05-31-2025 End: 05-31-2025 take 1 dose by mouth every two hours at mealtime 3.125 mg, Oral, 2 times daily, First dose on 05/31/25 at 1100, Give carvedilol with food to reduce risk of hypotension / dizziness. Separate from admin of SHEN inhibitors by two hours. cholecalciferol 0.05 mg oral capsule (5 sources) Vitamin D Start: 01-16-2023 take 1 capsule by mouth once daily ciprofloxacin 250 mg oral tablet (2 sources) Quinolone Antimicrobial Start: 05-16-2022 End: 05-19-2022 take 1 tablet by mouth twice daily ciprofloxacin HCl (CIPRO) 250 mg tablet Take 1 tablet by mouth twice daily for 3 days. 6 tablet 0 05/16/2022 05/19/2022 Active Comment on above: Take 1 tablet by elizabeth th twice daily for 3 days. clopidogrel 75 mg oral tablet (5 sources) P2Y12 Platelet Inhibitor Start: 05-29-2025 End: 05-29-2026 take 1 tablet by mouth once daily clopidogreL (PLAVIX) 75 mg tablet Take 1 (one) tablet (75 mg total) by mouth daily . 30 tablet 11 05/29/2025 05/29/2026 Active codeine phosphate 2 mg/ml / guaiFENesin 20 mg/ml oral solution (13 sources) Opioid Agonist Start: 03-31-2022 End: 04-16-2022 take 5 mL by mouth every eight hours as needed for cough and cough codeine-guaiFENesi n (GUAIFENESIN AC) 10-100 mg/5 mL syrup Indications: Cough Take 5 mL by mouth three times daily as needed for up to 16 days. 236 mL 0 03/31/2022 04/16/2022 Active Start: 02-24-2022 End: 03-12-2022 take 5 mL by mouth every eight hours as needed for cough and cough codeine-guaiFENesin (GUAIFENESIN AC) 10-100 mg/5 mL syrup Indications: Cough Take 5 mL by mouth three times daily as needed for up to 16 days. 236 mL 0 02/24/2022 03/12/2022 Active Comment on above: Take 5 mL by mouth t hree times daily as needed for up to 16 days. enteric contrast (will be provided with radiology test) (1 source) Start: 08-05-2024 End: 08-06-2024 enteric contrast (will be provided with radiology test) Indications: Malignant neoplasm of unspecified part of unspecified bronchus or lung (HCC) For CT Chest Abdomen W IVCON order Administer, As Directed One Time Only, via Oral, Rectal, both Oral and Rectal, Enteric Tube, Stoma or Indwelling Catheter, Enteric Contrast as designated per enteric contrast guidelines 1 Each 08/05/2024 08/06/2024 Active Essential oils (5 sources) Start: 01-18-2023 Start: 01-18-2023 Essential oils Active TOPICAL January 18, 2023 1:00am Alternates beth, peppermint, balance (doterra blend) hydrOXYzine hydrochloride 25 mg oral tablet (1 source) Antihistamine Start: 01-06-2020 End: 06-05-2022 take 1 tablet by mouth every six hours hydrOXYzine hydrochloride 25 mg oral tablet ; 1 tab(s) orally every 6 hours Quantity: 6 Refills: 0 Ordered: 03-Jun-2022 FilemonMameKorinmaria teresa Lakhani Start: 06-Jan-2020 End: 05-Jun-2022 Status: Discontinued Generic Substitution Allowed Comments: May cause drowsiness. Alcohol may intensify this effect. Use care when operating dangerous machinery.Obtain medical advice before taking any non-prescription drugs as some may affect the action of this medication. Comment on above: May cause drowsiness . Alcohol may intensify this effect. Use care when operating dangerous machinery.Obtain medical advice before taking any non-prescription drugs as some may affect the action of this medication. 24 hr isosorbide mononitrate 30 mg extended release oral tablet (5 sources) Nitrate Vasodilator Start: 05-31-2025 End: 06-30-2025 take 1 tablet by mouth once daily isosorbide mononitrate (IMDUR) 30 MG 24 hr tablet Take 1 (one) tablet (30 mg total) by mouth daily . 30 tablet 05/31/2025 Active 24 hr metoprolol succinate 25 mg extended release oral tablet (20 sources) beta-Adrenergic Mat Start: 06-11-2023 End: 05-31-2025 take 1 tablet by mouth once daily Start: 01-18-2023 End: 06-11-2023 take 2 tablets by mouth once daily Metoprolol Succinate 50 mg tablet extended release 24 hr Discontinued 25 mg PO DAILY January 18, 2023 12:46pm June 11, 2023 4:24pm Start: 01-18-2023 End: 06-11-2023 take 25 mg by mouth once daily Metoprolol Succinate Di scontinued 25 MG PO DAILY January 18, 2023 12:46pm June 11, 2023 4:24pm Start: 01-01-2023 End: 07-03-2025 take 1 tablet by mouth once daily Metoprolol Succinate 50 mg tablet extended release 24 hr Discontinued 50 mg PO DAILY January 16, 2023 1:00am January 18, 2023 12:46pm Comment on above: Take 50 mg by mouth once daily. Multivitamin preparation (2 sources) Start: 01-16-2023 take 1 tablet by mouth once daily Multivitamin Active 1 TABLET PO DAILY January 16, 2023 1:00am Multivitamin tablet (3 sources) Start: 01-16-2023 Start: 01-16-2023 Multivitamin t ablet Active 1 {tbl} PO DAILY January 16, 2023 1:00am nitrofurantoin, macrocrystals 25 mg / nitrofurantoin, monohydrate 75 mg oral capsule (1 source) Nitrofuran Antibacterial Start: 06-03-2022 End: 06-07-2022 take 1 capsule by mouth twice daily at mealtime Macrobid 100 mg oral capsule ; 1 cap(s) orally 2 times a day x 5 days. Take with food. Quantity: 10 Refills: 0 Ordered: 03-Jun-2022 Korin Colbert Start: 03-Jun-2022 End: 07-Jun-2022 Generic Substitution Allowed Comments: Finish all this medication unless otherwise directed by prescriber.May discolor urine or feces.Take with food or milk. Comment on above: Finish all this medi cation unless otherwise directed by prescriber.May discolor urine or feces.Take with food or milk. nitroglycerin 0.4 mg sublingual tablet (20 sources) Nitrate Vasodilator Start: 01-16-2023 Start: 01-16-2023 Nitroglycerin Active 0.4 MG SL Q5M January 16, 2023 1:00am do not exceed 3 doses per episode Start: 01-01-2023 nitroglycerin sublingual (NITROQUICK) 0.4 mg SL tablet Take 0.4 mg by mouth as needed. 01/01/2023 Active Comment on above: Take 0.4 mg by mouth as needed. perflutren lipid microspheres 1.3 mL in NaCl (PF) 0.9% 10 mL injection (DEFINITY) (20 sources) Start: 01-09-2023 End: 04-09-2024 perflutren lipid microspheres 1.3 mL in NaCl (PF) 0.9% 10 mL injection (DEFINITY) Start: 05-08-2022 End: 08-07-2023 perflutren lipid microsphere s 1.3 mL in NaCl (PF) 0.9% 10 mL injection (DEFINITY) pioglitazone 15 mg oral tablet (4 sources) Peroxisome Proliferator Receptor alpha Agonist, Peroxisome Proliferator Receptor gamma Agonist, Thiazolidinedione take 1 tablet by mouth once daily pioglitazone (ACTOS) 15 MG tablet Take 1 (one) tablet (15 mg total) by mouth daily . Active rosuvastatin calcium 10 mg oral tablet (20 sources) HMG-CoA Reductase Inhibitor Start: 06-25-20 25 End: 06-25-20 26 take 0.5 tablet by mouth once daily rosuvastatin (CRESTOR) 10 MG tablet Take 0.5 (one-half) tablet (5 mg total) by mouth nightly . 15 tablet 11 06/25/2025 06/25/2026 Active Start: 06-25-2025 End: 06-25-2026 take 5 mg by mouth once daily rosuvastatin (CRESTOR) 1 0 mg tablet Take 5 mg by mouth once daily. 06/25/2025 06/25/2026 Active Start: 06-25-2017 End: 05-29-2026 take 1 tablet by mouth at bedtime Start: 01-31-2017 End: 07-03-2025 take 5 mg by mouth every other day rosuvastatin 5 mg cpSP Take 5 mg by mouth every other day. 01/31/2017 07/03/2025 Discontinued Start: 01-31-2017 take 5 mg by mouth once daily rosuvastatin 5 mg cpSP Take 5 mg by mouth once daily. 0 01/31/2017 Active rosuvastatin Jorge Alberto ntity: 0 Refills: 0 Ordered: 03-Jun-2022 Johanne Oconnor Generic Substitution Allowed Comment on above: 5 mg once daily. Take 5 mg by mouth o nce daily. Take 5 mg by mouth e very other day. therapeutic multivitamin ORAL tablet (20 sources) Start: 02-22-2011 take 1 tablet by mouth once daily therapeutic multivitamin ORAL tablet Take 1 tablet by mouth once daily. 0 02/22/2011 Suspended Start: 02-22-2011 take 1 tablet by elizabeth th once daily therapeutic multivitamin ORAL tablet Take 1 tablet by mouth once daily. 0 02/22/2011 Active Comment on above: Take 1 tablet by elizabeth th once daily. ubidecarenone 100 mg oral capsule (5 sources) Start: 01-16-2023 take 10 capsules by mouth once daily ubidecarenone / vitamin E (20 sources) Start: 02-22-2011 take 1 capsule by mouth once daily Coenzyme H33-Fblpukl E 100-100 mg-unit cap Take 1 capsule by mouth once daily. 0 02/22/2011 Active Start: 02-22-2011 take 1 tablet by elizabeth th once daily Coenzyme U85-Xrediiy E 100-100 mg-unit cap Take 1 tablet by mouth once daily. Take one(1) capsule daily. 0 02/22/2011 Active Start: 02-22-2011 take 1 capsule by mo ut once daily Coenzyme B83-Xqyxpwv E 100-100 mg-unit cap Take by mouth. Take one(1) capsule daily. 0 02/22/2011 Active Start: 02-22-2011 take 1 capsule by mo ut once daily Coenzyme H70-Pvyqvav E 100-100 mg-unit cap Take by mouth. Take one(1) capsule daily. 0 02/22/2011 Suspended Start: 02-22-2011 take 1 capsule by mo ut once daily Coenzyme Y72-Lzrqbzc E (COQ10 SG 100) 100-100 mg-unit ORAL Cap Take by mouth. Take one(1) capsule daily. 0 02/22/2011 Active Comment on above: Take by mouth. Take one(1) capsule daily. [facility] Take one(1) capsule daily. Completed/Discontinued Medications Medication Drug Class(es) Dates Sig (Normalized) Sig (Original) acetaminophen 325 mg oral tablet (1 source) Start: 05-29-2025 End: 05-31-2025 take 1 tablet by mouth every six hours as needed for headache 650 mg, Oral, Every 6 hours PRN, headaches, Starting on Sun05/29/25 at 1427 amLODIPine 10 mg oral tablet (14 sources) Dihydropyridine Calcium Channel Mat Start: 10-29-2018 End: 11-02-2023 take 1 tablet by mouth once daily Amlodipine 10 mg tablet Discontinued 10 mg PO DAILY 90 January 18, 2023 1:00am August 17, 2023 1:09pm take 1 mg by mouth once daily am LODIPine Besylate 2.5 MG Oral Tablet daily (2.5 MG) Active Comments: rx by chester Comment on above: rx by chester Take 10 mg by mouth once daily. amoxicillin 500 mg oral capsule (1 source) Penicillin-class Antibacterial take 1 capsule by mouth three times daily amoxicillin (POLYMOX, AMOXIL) 500 mg capsule Take 500 mg by mouth three times daily. For 3 more days 0 Suspended Comment on above: Take 500 mg by mouth three times daily. For 3 more days Ca Zkwj-H5-Atqe-Chndr-S y Is-Br (XMEJGHQ-G1-MTGXMKKP -CHONDROIT) [id number] mg-wvsk-jr-mg ORAL Tab (20 sources) Start: 02-23-20 11 take 1 tablet by mouth once daily Ca Qkfv-A7-Gnae-Chndr-S y Is-Br (NEKMYFT-H7-IBXGLFQZ -CHONDROIT) [phone] ij-auay-ui-mg ORAL Tab Take by mouth. Take one(1) tablet daily. 0 02/22/2011 Active Comment on above: Take by mouth. Take one(1) tablet daily. Ca Tjsg-V6-Fofh-Chndr-S y Is-Br [phone] nr-shak-jh-mg tab (20 sources) Start: 02-23-20 11 End: 05-03-20 23 take 1 tablet by mouth once daily Ca Miwf-W5-Sofr-Chndr-S y Is-Br [phone] ae-kigf-ri-mg tab Take by mouth. Take one(1) tablet daily. 0 02/22/2011 05/03/2023 Discontinued Start: 02-22-2011 take 1 tablet by elizabeth th once daily Ca Nkvu-Q0-Mqce-Chndr-Sy Is-Br [phone] jj-pmhl-rc-mg tab Take by mouth. Take one(1) tablet daily. 0 02/22/2011 Active Start: 02-22-2011 take 1 tablet by elizabeth th once daily Ca Uhkl-K7-Smkc-Chndr-Sy Is-Br [phone] ml-deyr-ps-mg tab Take by mouth. Take one(1) tablet daily. 0 02/22/2011 Suspended Comment on above: Take by mouth. Take one(1) tablet daily. dexamethasone 4 mg oral tablet (20 sources) Corticosteroid Start: 022 take 1 tablet by mouth twice daily at mealtime dexAMETHasone (DECADRON) 4 mg tablet Take 1 tablet by mouth twice daily with meals. the day prior to and the day following each chemotherapy treatment. 12 tablet 0 03/22/2022 Active Comment on above: Take 1 tablet by elizabeth th twice daily with meals. the day prior to and the day following each chemotherapy treatment. diphenhydrAMINE (1 source) Histamine-1 Receptor Antagonist Start: 025 End: 07-10-2 025 10 mg, Intravenous, Once, On Svetlana 05/28/25 at 1350, For 1 dose, For IV administration, give at a rate less than or equal to 25 mg/min docusate sodium 50 mg / sennosides, alf 8.6 mg oral tablet (1 source) Start: End: take 1 tablet by mouth twice daily 1 tablet, Oral, 2 times daily, First dose on Svetlana 05/28/25 at 2100, Do not crush or chew. Hold for loose stool and do not give to patients with ABD surgery. Do Not Crush or Chew if administering orally due to bitter taste. May be crushed if given via tube. folic acid 1 mg oral tablet (20 sources) Start: take 1 tablet by mouth once daily folic acid 1 mg tablet Take 1 tablet by mouth once daily. 90 tablet 2 03/22/2022 Active Comment on above: Take [address] [facility] once daily. homatropine methylbromide 0.3 mg/ml / HYDROcodone bitartrate 1 mg/ml oral solution (2 sources) Opioid Agonist, Cholinergic Muscarinic Agonist Start: End: HYDROcodone-homatrop ine (HYDROMET) 5-1.5 mg/5 mL (5 mL) syrup Indications: Malignant neoplasm of upper lobe of right lung (HCC) Take 5 mL by mouth every 6 hours as needed for up to 7 days. 140 mL 0 03/22/2022 03/29/2022 Comment on above: Take 5 mL by mouth e very 6 hours as needed for up to 7 days. hydrALAZINE hydrochloride 25 mg oral tablet (3 sources) Arteriolar Vasodilator Start: End: take 1 tablet by mouth every eight hours as needed 25 mg, Oral, Every 8 hours PRN, other, for SBP>180, Starting on [facility] 05/30/25 at 0857 Start: 05-28-2025 End: 05-30-2025 take 10 mg intravenously every six hours as needed 10 mg, Intravenous, Every 6 hours PRN, SBP greater than 180/110, Starting on Svetlana 05/28/25 at 1651 insulin lispro 100 unt/ml injectable solution (1 source) Insulin Analog Start: 05-30-2025 End: 05-30-2025 inject 2 [IU] by subcutaneous injection once 2 Units, Subcutaneous, Once, On 05/30/25 at 0115, For 1 dose Start: 05-30-2025 End: 05-30-2025 inject 2 [IU] by subcutaneous injection once 2 Units, Subcutaneous, Once, On 05/30/25 at 0115, For 1 dose iopamidoL (ISOVUE-370) 370 m g iodine /mL (76 %) injection 75 mL (1 source) Start: 05-28-2025 End: 05-28-2025 75 mL, Intravenous, Once in imaging, contrast, Starting on Svetlana 05/28/25 at 1522, For 1 dose iv contrast (will be provide d with radiology test) (20 sources) Start: 11-20-2024 End: 11-21-2024 iv contrast (will be provide d with radiology test) Indications: Malignant neoplasm of unspecified part of unspecified bronchus or lung (HCC) CT Chest W -Inject, intravenously, once for 1 dose.No IV access, insert saline lock prior to the beginning of sedation, infusion, injection of imaging exam. Discontinue saline lock post exam. If Pt. has a central line or IVAD, may access for administration according to line specific nursing protocol. Once exam is complete flush line and de-access according to line specific nursing protocol in the CT contrast administration guidelines link. 1 Each 11/20/2024 11/21/2024 Start: 11-20-2024 End: 11-21-2024 iv contrast (will be provide d with radiology test) Indications: Malignant neoplasm of unspecified part of unspecified bronchus or lung (HCC) CT Chest W -Inject, intravenously, once for 1 dose.No IV access, insert saline lock prior to the beginning of sedation, infusion, injection of imaging exam. Discontinue saline lock post exam. If Pt. has a central line or IVAD, may access for administration according to line specific nursing protocol. Once exam is complete flush line and de-access according to line specific nursing protocol in the CT contrast administration guidelines link. 1 Each 11/20/2024 11/21/2024 Active Start: 08-05-2024 End: 08-06-2024 iv contrast (will be provide d with radiology test) Indications: Malignant neoplasm of unspecified part of unspecified bronchus or lung (HCC) CT Chest Abdomen-Inject, intravenously, once for 1 dose.No IV access, insert saline lock prior to the beginning of sedation, infusion, injection of imaging exam. Discontinue saline lock post exam. If Pt. has a central line or IVAD, may access for administration according to line specific nursing protocol. Once exam is complete flush line and de-access according to line specific nursing protocol in the CT contrast administration guidelines link. 1 Each 08/05/2024 08/06/2024 Active Start: 05-06-2024 End: 05-07-2024 iv contrast (will be provide d with radiology test) Indications: Malignant neoplasm of unspecified part of unspecified bronchus or lung (HCC) , Lung nodule CT Chest W -Inject, intravenously, once for 1 dose.No IV access, insert saline lock prior to the beginning of sedation, infusion, injection of imaging exam. Discontinue saline lock post exam. If Pt. has a central line or IVAD, may access for administration according to line specific nursing protocol. Once exam is complete flush line and de-access according to line specific nursing protocol in the CT contrast administration guidelines link. 1 Each 0 05/06/2024 05/07/2024 Active Start: 11-02-2023 End: 11-03-2023 iv contrast (will be provide d with radiology test) Indications: Malignant neoplasm of upper lobe of right lung (HCC) , Malignant neoplasm of unspecified part of unspecified bronchus or lung (HCC) CT Chest W -Inject, intravenously, once for 1 dose.No IV access, insert saline lock prior to the beginning of sedation, infusion, injection of imaging exam. Discontinue saline lock post exam. If Pt. has a central line or IVAD, may access for administration according to line specific nursing protocol. Once exam is complete flush line and de-access according to line specific nursing protocol in the CT contrast administration guidelines link. 1 Each 0 11/02/2023 11/03/2023 Active Start: 05-03-2023 End: 05-04-2023 iv contrast (will be provide d with radiology test) CT Chest W -Inject, intravenously, once for 1 dose.No IV access, insert saline lock prior to the beginning of sedation, infusion, injection of imaging exam. Discontinue saline lock post exam. If Pt. has a central line or IVAD, may access for administration according to line specific nursing protocol. Once exam is complete flush line and de-access according to line specific nursing protocol in the CT contrast administration guidelines link. 1 Each 0 05/03/2023 05/04/2023 Active Start: 01-31-2023 End: 02-01-2023 iv contrast (will be provide d with radiology test) Indications: Malignant neoplasm of unspecified part of unspecified bronchus or lung (HCC) , Malignant neoplasm of upper lobe of right lung (HCC) CT Chest W -Inject, intravenously, once for 1 dose.No IV access, insert saline lock prior to the beginning of sedation, infusion, injection of imaging exam. Discontinue saline lock post exam. If Pt. has a central line or IVAD, may access for administration according to line specific nursing protocol. Once exam is complete flush line and de-access according to line specific nursing protocol in the CT contrast administration guidelines link. 1 Each 0 01/31/2023 02/01/2023 Active Start: 07-11-2022 End: 07-12-2022 iv contrast (will be provide d with radiology test) Indications: Malignant neoplasm of unspecified part of unspecified bronchus or lung (HCC) CT Chest W -Inject, intravenously, once for 1 dose.No IV access, insert saline lock prior to the beginning of sedation, infusion, injection of imaging exam. Discontinue saline lock post exam. If Pt. has a central line or IVAD, may access for administration according to line specific nursing protocol. Once exam is complete flush line and de-access according to line specific nursing protocol in the CT contrast administration guidelines link. 1 Each 0 07/11/2022 07/12/2022 Active Start: 05-08-2022 iv contrast (w ill be provided with radiology test) CT Chest W -Inject, intravenously, once for 1 dose.No IV access, insert saline lock prior to the beginning of sedation, infusion, injection of imaging exam. Discontinue saline lock post exam. If Pt. has a central line or IVAD, may access for administration according to line specific nursing protocol. Once exam is complete flush line and de-access according to line specific nursing protocol in the CT contrast administration guidelines link. 1 Each 0 05/08/2022 Suspended Start: 05-08-2022 iv contrast (w ill be provided with radiology test) CT Chest W -Inject, intravenously, once for 1 dose.No IV access, insert saline lock prior to the beginning of sedation, infusion, injection of imaging exam. Discontinue saline lock post exam. If Pt. has a central line or IVAD, may access for administration according to line specific nursing protocol. Once exam is complete flush line and de-access according to line specific nursing protocol in the CT contrast administration guidelines link. 1 Each 0 05/08/2022 Active Start: 02-21-2022 End: 02-22-2022 inject 1 dose intravenously once iv contrast (will be provided with radiology test) Indications: Localized swelling, mass and lump, trunk , Cancer of trachea, bronchus, and lung (HCC) , Abnormal positron emission tomography (PET) scan MRI TSP Inject, intravenously, once for 1 dose. No IV access, insert saline lock prior to the beginning of sedation, infusion, injection of imaging exam. Discontinue saline lock post exam. If Pt. has a central line or IVAD, may access for administration according to line specific nursing protocol. Once exam is complete flush line and de-access according to line specific nursing protocol in the MR contrast administration guidelines link. 1 Each 0 02/21/2022 02/22/2022 Active Start: 02-13-2022 End: 02-14-2022 inject 1 dose intravenously once iv contrast (will be provided with radiology test) Indications: Neoplasm of lung , Lung nodule MRI Brain Inject, intravenously, once for 1 dose.No IV access, insert saline lock prior to beginning of sedation, infusion, injection of imaging exam.Discontinue saline lock post exam. If Pt. has a central line or IVAD, may access for administration according to line specific nursing protocol.Once exam is complete flush line and de-access according to line specific nursing protocol in the MR contrast administration guidelines link 1 Each 0 02/13/2022 02/14/2022 Active Comment on above: MRI Brain Inject, in travenously, once for 1 dose.No IV access, insert saline lock prior to beginning of sedation, infusion, injection of imaging exam.Discontinue saline lock post exam. If Pt. has a central line or IVAD, may access for administration according to line specific nursing protocol.Once exam is complete flush line and de-access according to line specific nursing protocol in the MR contrast administration guidelines link MRI TSP Inject, intr avenously, once for 1 dose. No IV access, insert saline lock prior to the beginning of sedation, infusion, injection of imaging exam. Discontinue saline lock post exam. If Pt. has a central line or IVAD, may access for administration according to line specific nursing protocol. Once exam is complete flush line and de-access according to line specific nursing protocol in the MR contrast administration guidelines link. CT Chest W -Inject, intravenously, once for 1 dose.No IV access, insert saline lock prior to the beginning of sedation, infusion, injection of imaging exam. Discontinue saline lock post exam. If Pt. has a central line or IVAD, may access for administration according to line specific nursing protocol. Once exam is complete flush line and de-access according to line specific nursing protocol in the CT contrast administration guidelines link. 1 ml ketorolac tromethamine 30 mg/ml injection (1 source) Nonsteroidal Anti-inflammatory Drug, Cyclooxygenase Inhibitor Start: 2024 End: 2024 take 15 mg intravenously every six hours as needed for pain 15 mg, Intravenous, Every 6 hours PRN, mild pain, Starting on 05/30/25 at 0935, For 48 hours lisinopril 20 mg oral tablet (20 sources) Angiotensin Converting Enzyme Inhibitor Start: 2021 End: 2021 take 1 tablet by mouth once daily lisinopril (ZESTRIL, PRINIVIL) 20 mg tablet Take 20 mg by mouth once daily. 0 01/10/2022 10/03/2022 Discontinued Start: 06-25-2017 End: 01-16-2023 take 1 tablet by mouth once daily Lisinopril (Zestril) 10 MG tablet Discontinued 10 mg PO DAILY 30 0 June 25, 2017 12:00am January 16, 2023 1:58pm Comment on above: rx by dr. briggs Take 20 mg by mouth once daily. losartan potassium 100 mg oral tablet (20 sources) Angiotensin 2 Receptor Mat Start: 2 End: take 1 tablet by mouth once daily Losartan 100 mg tablet Discontinued 100 mg PO DAILY January 16, 2023 1:00am January 16, 2023 2:25pm Start: 09-08-2022 End: 01-03-2023 take 1 tablet by mouth once daily losartan (COZAAR) 50 mg tablet Take 50 mg by mouth once daily. 09/08/2022 01/03/2023 Discontinued Comment on above: Take 50 mg by mouth once daily. Take 100 mg by mouth once daily. metFORMIN hydrochloride 500 mg oral tablet (20 sources) Biguanide Start: End: take 2 tablets by mouth twice daily Metformin 500 mg tablet Discontinued 1000 mg PO TWICE A DAY January 16, 2023 1:55pm January 16, 2023 2:24pm Start: 01-16-2023 End: 01-16-2023 take 1000 mg by mouth twice daily Metformin Discontinued 1000 MG PO TWICE A DAY January 16, 2023 1:55pm January 16, 2023 2:24pm Start: 01-16-2023 Start: 01-16-2023 take 1000 mg by mouth once candido ly Metformin Active 1000 MG PO DAILY January 16, 2023 1:00am Start: 02-10-2022 End: 05-03-2023 take 1 tablet by mouth twice daily metFORMIN ER (GLUCOPHAGE XR) 500 mg 24 hr tablet Take 500 mg by mouth twice daily. 02/10/2022 05/03/2023 Discontinued Start: 02-06-2022 End: 01-16-2023 take 1 tablet by mouth twice daily Metformin (Glucophage) 500 mg Tablet Discontinued 500 mg PO TWICE A DAY February 06, 2022 12:00am January 16, 2023 1:58pm Start: 01-31-2017 take 1 tablet by elizabeth th twice daily metFORMIN ER (GLUMETZA) 500 mg 24 hr tablet Take 500 mg by mouth twice daily. 01/31/2017 Active End: 07-03-2025 take 1 tablet by mouth once daily at breakfast metFORMIN (GLUCOPHAGE-XR) 500 MG 24 hr tablet Take 1 (one) tablet (500 mg total) by mouth daily with breakfast . Active take 1 tablet by elizabeth th once daily in the evening metFORMIN (GLUCOPHAGE) 500 MG tablet Take 1 (one) tablet (500 mg total) by mouth every evening . Active metFORMIN Quanti ty: 0 Refills: 0 Ordered: 03-Jun-2022 Johanne Oconnor Generic Substitution Allowed Comment on above: 500 mg twice daily. Take 500 mg by mouth twice daily. 2 ml metoclopramide 5 mg/ml injection (2 sources) Dopamine-2 Receptor Antagonist Start: 025 End: take 5 mg intravenously every six hours as needed for gastroesophageal reflux disease 5 mg, Intravenous, Every 6 hours PRN, heartburn, Starting on 05/30/25 at 1357 Start: 05-28-2025 End: 05-28-2025 10 mg, Intravenous, Once, On Svetlana 05/28/25 at 1350, For 1 dose metroNIDAZOLE 7.5 mg/ml topical lotion (20 sources) Nitroimidazole Antimicrobial Start: 07-11-2006 End: 01-18-2023 Metronidazole (Metrolotion) 0.75 % lotion Discontinued 1 NMA TOPICAL TWICE A DAY January 16, 2023 1:00am January 18, 2023 12:16pm Comment on above: bid face Multivitamin Adult Oral Tablet (4 sources) Multivitamin Buster lt Oral Tablet Active mupirocin 0.02 mg/mg topical ointment (1 source) RNA Synthetase Inhibitor Antibacterial Start: 06-23-2022 mupirocin (BACTROBAN) 2 % ointment Apply a small amount in each nostril using a cotton swab twice the day before surgery and once the morning of surgery. 22 g 0 06/23/2022 Active Comment on above: Apply a small amount in each nostril using a cotton swab twice the day before surgery and once the morning of surgery. naproxen 500 mg oral tablet (4 sources) Nonsteroidal Anti-inflammatory Drug Start: 08-13-2019 take 1 tablet by mouth twice daily as needed Naprosyn 500 MG Oral Tablet 1 (one) Tablet bid prn for 0 days Quantity: 30 {Tablet} Refills: 0 Ordered: 13-Aug-2019 Ama Ybarra CNP, CNP, Mary E Start : 13-Aug-2019 Active Comments: Per Dr Hicks Comment on above: Per Dr Hicks ondansetron 4 mg disintegrating oral tablet (2 sources) Serotonin-3 Receptor Antagonist Start: 05-30-2025 End: 05-31-2025 take 1 tablet by mouth every six hours as needed for nausea and vomiting 4 mg, Oral, Every 6 hours PRN, nausea, vomiting, Starting on 05/30/25 at 0313, Orally disintegrating tablet: Open blister pack and place tablet on the tongue; tablet is formulated to dissolve on the tongue without water; do not split tablet. Formulation requires tablet remain in sealed package until immediately prior to dose being administered. Start: 05-28-2025 End: 05-28-2025 4 mg, Intravenous, Once, On Svetlana 05/28/25 at 1350, For 1 dose oxyCODONE hydrochloride 5 mg oral tablet (5 sources) Opioid Agonist Start: 01-16-2023 End: 01-18-2023 take 1 tablet by mouth every six hours as needed Oxycodone 5 mg tablet Discontinued 5 mg PO EVERY 6 HOURS as needed 0 January 16, 2023 1:00am January 18, 2023 12:16pm pravastatin sodium 10 mg oral tablet (5 sources) HMG-CoA Reductase Inhibitor End: 02-13-2022 take 1 tablet by mouth once daily pravastatin (PRAVACHOL) 10 mg tablet Take 10 mg by mouth once daily. 0 02/13/2022 Discontinued Comment on above: tomchek Take 10 mg by mouth once daily. predniSONE 10 mg oral tablet (1 source) Start: 01-06-2020 End: 01-10-2020 take 3 tablets by mouth once daily at mealtime predniSONE 10 mg oral tablet ; 3 tab(s) orally once a day Quantity: 15 Refills: 0 Ordered: 06-Jan-2020 Alyse Velarde Start: 06-Jan-2020 End: 10-Jan-2020 Status: Other Generic Substitution Allowed Comments: It is very important that you take or use this exactly as directed. Do not skip doses or discontinue unless directed by your doctor.Obtain medical advice before taking any non-prescription drugs as some may affect the action of this medication.Take with food or milk. Comment on above: It is very important that you take or use this exactly as directed. Do not skip doses or discontinue unless directed by your doctor.Obtain medical advice before taking any non-prescription drugs as some may affect the action of this medication.Take with food or milk. pregabalin 50 mg oral capsule (10 sources) Start: 04-17-2023 End: 08-05-2024 take 1 capsule by mouth once daily in the evening pregabalin (LYRICA) 50 mg capsule Take 50 mg by mouth every evening. 04/17/2023 08/05/2024 Discontinued Comment on above: Take 50 mg by mouth every evening. prochlorperazine 5 mg/ml injectable solution (1 source) Phenothiazine Start: 05-30-2025 End: 05-31-2025 take 5 mg intravenously every six hours as needed for nausea and vomiting 5 mg, Intravenous, Every 6 hours PRN, nausea, vomiting, Starting on 05/30/25 at 0933, If IV, give slow IV push at a rate not exceeding 5 mg/minute and remain lying down for 30 minutes to reduce risk of hypotension. If IM, inject deep into outer buttocks quadrant. promethazine hydrochloride 25 mg oral tablet (16 sources) Phenothiazine Start: 04-04-2022 take 1 tablet by mouth every six hours as needed promethazine (PHENERGAN) 25 mg tablet Take 1 tablet by mouth every 6 hours as needed (For chemotherapy induced nausea). FOR NAUSEA 30 tablet 2 04/04/2022 Active Comment on above: Take 1 tablet by elizabeth every 6 hours as needed (For chemotherapy induced nausea). FOR NAUSEA sodium chloride 0.111 meq/ml nasal spray (20 sources) Start: 05-30-2025 End: 05-31-2025 1 spray, Each Nare, As needed, irritation, Starting on 05/30/25 at 0313, Upright delivers a spray; Horizontally a stream; Upside down a drop. Start: 05-28-2025 End: 05-31-2025 sodium chloride (PF) (NS) fl ush 5 mL Start: 05-28-2025 End: 05-31-2025 sodium chloride (PF) (NS) fl ush 5 mL Start: 05-08-2022 End: 04-09-2024 sodium chloride 0.9 % (flush ) 10 mL (BD POSIFLUSH) tamsulosin hydrochloride 0.4 mg oral capsule (1 source) alpha-Adrenergic Mat Start: 10-31-2016 End: 02-13-2022 take 1 capsule by mouth once daily tamsulosin ER (FLOMAX) 0.4 mg cp24 Indications: Kidney stone Take 1 capsule by mouth once daily. 14 capsule 0 10/31/2016 02/13/2022 Discontinued Comment on above: Take 1 capsule by mo [facility] once daily. Problems Active Problems Problem Classification Problem Date Documented Date Episodic/Chronic Acute cerebrovascular disease (7 sources) Cerebrovascular accident; Translations: [Cerebral infarction, unspecified] Onset: 05-28-2025 05-28-2025 Chronic Blindness and vision defects (3 sources) Photophobia; Translations: [Visual discomfort, unspecified] Onset: 05-28-2025 05-28-2025 Episodic Cancer of bronchus; lung (20 sources) Malignant neoplasm of right upper lobe of lung; Translations: [Malignant neoplasm of upper lobe, right bronchus or lung] Onset: 02-24-2022 Chronic Cancer of bronchus; lung (8 sources) History of malignant neoplasm of thoracic cavity structure; Translations: [Personal history of other malignant neoplasm of bronchus and lung] 08-15-2022 Episodic Cancer; other respiratory and intrathoracic (20 sources) Malignant neoplasm of lower respiratory tract; 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] Chronic Cardiac dysrhythmias (20 sources) Atrial fibrillation; Translations: [Unspecified atrial fibrillation] Onset: 06-30-2022 06-30-2022 Chronic Conditions associated with dizziness or vertigo (3 sources) Dizziness; Translations: [Dizziness and giddiness] Onset: 05-28-2025 05-28-2025 Episodic Diabetes mellitus without complication (20 sources) Type 2 diabetes mellitus; Translations: [Type 2 diabetes mellitus without complications] Onset: 06-24-2025 03-24-2022 Chronic Disorders of lipid metabolism (20 sources) Hyperlipidemia; Translations: [Hypercholesterolemia ] 08-13-2019 Chronic Comment on above: controlled on pravas tatin Essential hypertension (20 sources) Hypertensive disorder; Translations: [Essential hypertension] Onset: 06-26-2022 08-13-2019 Chronic Comment on above: controlled on lisino pril and amlodipine 2.5 mg Headache; including migraine (1 source) Headache; Translations: [Headache] 05-28-2025 Episodic Headache; including migraine (2 sources) Headache; including migraine; Translations: [Headache, unspecified] Onset: 05-28-2025 Heart valve disorders (3 sources) Heart murmur; Translations: [Cardiac murmur, unspecified] Onset: 01-30-2023 Episodic Nonspecific chest pain (15 sources) Chest pain; Translations: [Chest pain, unspecified] Onset: 01-30-2023 Episodic Osteoarthritis (13 sources) Primary osteoarthritis, unspecified ankle and foot; Translations: [Arthropathy, unspecified, ankle and foot] Onset: 09-29-2024 09-01-2024 Chronic Other circulatory disease (6 sources) H/O: atrial fibrillation; Translations: [Personal history of other diseases of the circulatory system] 08-15-2022 Episodic Other connective tissue disease (2 sources) Pain in both feet; Translations: [Pain in right foot] 08-28-2024 Episodic Other connective tissue disease (2 sources) Other symptoms and signs involving the musculoskeletal system; Translations: [Other symptoms and signs involving the musculoskeletal system] Onset: 02-23-2025 Episodic Other endocrine disorders (1 source) Unspecified adrenocortical insufficiency; 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)] Onset: 11-04-2024 Chronic Other lower respiratory disease (6 sources) Nodule of lung; Translations: [Solitary pulmonary nodule] Episodic Other lower respiratory disease (2 sources) Solitary pulmonary nodule; Translations: [Lung nodule] Onset: 02-21-2022 Episodic Other lower respiratory disease (5 sources) Dyspnea; Translations: [Dyspnea, unspecified] 01-17-2023 Episodic Other nervous system disorders (2 sources) Unspecified abnormalities of gait and mobility; Translations: [Unspecified abnormalities of gait and mobility] Onset: 02-23-2025 Episodic Other nutritional; endocrine; and metabolic disorders (6 sources) H/O: diabetes mellitus; Translations: [Personal history of other endocrine, nutritional and metabolic disease] 08-15-2022 Episodic Other screening for suspected conditions (not mental disorders or infectious disease) (2 sources) Radiology result abnormal; Translations: [Abnormal results of function studies of other organs and systems] Episodic Other skin disorders (1 source) Finding of trunk structure; Translations: [Localized swelling, mass and lump, trunk] Episodic Residual codes; unclassified (1 source) Obstructive sleep apnea (adult) (pediatric); Translations: [Obstructive sleep apnea (adult) (pediatric)] Onset: 03-19-2025 Chronic Sprains and strains (2 sources) Sprain of other specified parts of right knee, initial encounter; Translations: [Sprain of other specified parts of right knee, initial encounter] Onset: 02-23-2025 Episodic Syncope (3 sources) Syncope; Translations: [Syncope and collapse] Onset: 05-28-2025 05-28-2025 Episodic Thyroid disorders (2 sources) Acquired hypothyroidism; Translations: [Hypothyroidism, unspecified] Onset: 11-04-2024 Chronic Unclassified (1 source) Radiology NM Onset: 01-30-2023 Unclassified (1 source) Other intervertebral disc degeneration, 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 or lower extremity pain; Translations: [Other intervertebral disc degeneration, 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 or lower extremity pain] Onset: 08-20-2025 Past or Other Problems Problem Classification Problem Date Documented Date Episodic/Chronic Administrative/social admission (20 sources) Discharge status; Translations: [Encounter for administrative examinations, unspecified] Onset: 06-26-2022 06-26-2022 Episodic Calculus of urinary tract (20 sources) Kidney stone; Translations: [Calculus of kidney] Onset: 06-10-2010 06-10-2010 Episodic Genitourinary symptoms and ill-defined conditions (20 sources) Lobito hematuria; Translations: [Gross hematuria] Onset: 06-10-2010 06-10-2010 Episodic Neoplasms of unspecified nature or uncertain behavior (4 sources) Neoplasm of lung ; Translations: [Neoplasm of unspecified behavior of respiratory system] Onset: 02-21-2022 Episodic Other connective tissue disease (9 sources) Dysfunction of posterior tibial tendon; Translations: [Posterior tibial tendinitis, unspecified leg] Onset: 09-29-2024 09-01-2024 Episodic Other connective tissue disease (1 source) Posterior tibial tendinitis, unspecified leg; Translations: [Posterior tibial tendon dysfunction] Onset: 09-29-2024 Episodic Other connective tissue disease (1 source) Pain in right foot; Translations: [Bilateral foot pain] Onset: 09-01-2024 Episodic Other connective tissue disease (1 source) Pain in left foot; Translations: [Bilateral foot pain] Onset: 09-01-2024 Episodic Other connective tissue disease (4 sources) Pain in left foot; Translations: [Left foot pain] 08-13-2019 Comment on above: osteoarthritis, L ex cision of saddlebone deformity, to be done by Dr. Hicks on Aug 22, 2019 Other connective tissue disease (4 sources) Ganglion cyst of left foot; Translations: [Ganglion cyst of left foot] 08-13-2019 Other lower respiratory disease (20 sources) Cough; Translations: [Cough] Onset: 03-24-2022 Episodic Other nervous system disorders (20 sources) Acute postoperative pain; Translations: [Other acute postprocedural pain] Onset: 06-26-2022 06-26-2022 Episodic Spondylosis; intervertebral disc disorders; other back problems (20 sources) Bilateral sciatica; Translations: [Sciatica, right side] Onset: 06-28-2022 06-30-2022 Episodic Unclassified (8 sources) Unclassified (4 sources) 2 pregnancies and 2 live births 08-13-2019 Unclassified (4 sources) Ganglion cyst of left foot Unclassified (4 sources) Left foot pain Unclassified (8 sources) Nonsmoker; Translations: [Non-smoker] 08-13-2019 Unclassified (8 sources) BMI 23.0-23.9, adult; Translations: [Body mass index 20-24 - normal] 08-13-2019 Unclassified (8 sources) Preprocedural examination done; Translations: [Preop examination] 08-13-2019 Urinary tract infections (5 sources) Urinary tract infectious disease; Translations: [Acute cystitis] Onset: 06-08-2025 06-03-2022 Episodic Comment on above: UTI Results Test Name Value Interpretation Reference Range Facility Urine Cultureon 09-30-2025 [facility] Mixed Gram Positive Organisms [place] Count 25,000-50,000 [facility] Mixed contaminants. Submit a new specimen if indicated. Normal [facility] Comment on above: Performed By: #### M 100.2200 #### [facility] [address] [place], [address] L/S Spine Min 4 Viewson 07-20 L/S Spine Min 4 Views [facility] Services [address] [place] [address] L/S Spine Min 4 Views MR#: [id number] Acct: [id number] Name: ORTIZLIDIA A Rep #: [id number] : 1945 F 80 From: Johana Chambers MD PCP: Dr. Angy Bautista MD Status: REG CLI Study: L/S Spine Min 4 Views Date of Exam: 08/03/25 Exam# [id number] Ordering Dr: Tanya Mahoney PROCEDURE: L/S SPINE MIN 4 VIEWS 08/03/2025 REASON FOR EXAM: LUMBER DDD TECHNIQUE: Procedure Code: RADSPLS Modality: DX Procedure: L/S SPINE MIN 4 VIEWS COMPARISON: None. FINDINGS: Anterolisthesis L4 on L5 by 3 mm. Multilevel degenerate changes predominantly at L3-L4 and L5-S1 where there is disc space narrowing, sclerotic endplates and facet joint arthropathy. No acute bony abnormalities. No spondylolysis. Vascular atherosclerotic calcifications of the aorta. Large amount of fecal load in the colon. RAD/L/S Spine Min 4 Views IMPRESSION: Anterolisthesis L4 on L5 by 3 mm. Multilevel degenerate changes predominantly at L3-L4 and L5-S1 where there is disc space narrowing, sclerotic endplates and facet joint arthropathy. Reading Location: [facility] CC: Tanya Mahoney; Dr. Angy Bautista MD Dry Plasterer: Signed Normal [facility] CBC W Auto Differential pane l (Bld)on 07-03-2025 Basophils (Bld) [#/Vol] 0.03 10*3/uL Normal <0.11 [facility] Comment on above: Order Comment: Speci men Type: BLOOD SPECIMENOrdering Facility: [facility] Address: [address] [place] [address] Performed By: #### 5 7021-8 ####[facility] [id number] [place] [address] [place] Basophils/100 WBC (Bld) 0.7 % Normal [facility] Comment on above: Order Comment: Speci men Type: BLOOD SPECIMENOrdering Facility: [facility] Address: [address] [place] [address] Performed By: #### 5 7021-8 ####[facility] [id number] [place] [address] [place] Differential cell count method Nom (Bld) Auto Normal [facility] Comment on above: Order Comment: Speci men Type: BLOOD SPECIMENOrdering Facility: [facility] Address: [address] [place] [address] Performed By: #### 5 7021-8 ####[facility]BLASINTER[facility] [id number] [place] [address] [place] Eosinophils (Bld) [#/Vol] 0.03 10*3/uL Normal <0.46 [facility] Comment on above: Order Comment: Speci men Type: BLOOD SPECIMENOrdering Facility: [facility] Address: [address] [place] [address] Performed By: #### 5 7021-8 ####[facility] [id number] [place] [address] [place] Eosinophils/100 WBC (Bld) 0.7 % Normal [facility] Comment on above: Order Comment: Speci men Type: BLOOD SPECIMENOrdering Facility: [facility] Address: [address] [place] [address] Performed By: #### 5 7021-8 ####[facility] [id number] [place] [address] [place] Erythrocyte distribution width (RBC) [Ratio] 13.4 % Normal 11.5-15.0 [facility] Comment on above: Order Comment: Speci men Type: BLOOD SPECIMENOrdering Facility: [facility] Address: [address] [place] [address] Performed By: #### 5 7021-8 ####[facility] [id number] [place] [address] [place] Hematocrit (Bld) [Volume fraction] 40.6 % Normal 36.0-46.0 [facility] Comment on above: Order Comment: Speci men Type: BLOOD SPECIMENOrdering Facility: [facility] Address: [address] [place] [address] Performed By: #### 5 7021-8 ####[facility] H[facility]PITALWNCLIA [id number] [place] [address] [place] Hemoglobin (Bld) [Mass/Vol] 13.5 g/dL Normal 11.5-15.5 [facility] Comment on above: Order Comment: Speci men Type: BLOOD SPECIMENOrdering Facility: [facility] Address: [address] [place] [address] Performed By: #### 5 7021-8 ####[facility]OSPITALLIA [id number] [place] [address] [place] Immature granulocytes (Bld) [#/Vol] 10*3/uL Normal <0.10 [facility] Comment on above: Order Comment: Speci men Type: BLOOD SPECIMENOrdering Facility: [facility] Address: [address] [place] [address] Performed By: #### 5 7021-8 ####[facility] HOSPITALA [id number] [place] [address] [place] Immature granulocytes/100 WBC (Bld) 0.2 % Normal [facility] Comment on above: Order Comment: Speci men Type: BLOOD SPECIMENOrdering Facility: [facility] Address: [address] [place] [address] Performed By: #### 5 7021-8 ####[facility]ITALL[facility] [id number] [place] [address] [place] Lymphocytes (Bld) [#/Vol] 1.11 10*3/uL Normal 1.00-4.00 [facility] Comment on above: Order Comment: Speci men Type: BLOOD SPECIMENOrdering Facility: [facility] Address: [address] [place] [address] Performed By: #### 5 7021-8 ####[facility] CITYNCLIA [id number] [place] [address] [place] Lymphocytes/100 WBC (Bld) 26.2 % Normal [facility] Comment on above: Order Comment: Speci men Type: BLOOD SPECIMENOrdering Facility: [facility] Address: [address] [place] [address] Performed By: #### 5 7021-8 ####[facility]NC[facility] [id number] [place] [address] [place] MCH (RBC) [Entitic mass] 30.6 pg Normal 26.0-34.0 [facility] Comment on above: Order Comment: Speci men Type: BLOOD SPECIMENOrdering Facility: [facility] Address: [address] [place] [address] Performed By: #### 5 7021-8 ####[facility] [id number] [place] [address] [place] MCHC (RBC) [Mass/Vol] 33.3 g/dL Normal 30.5-36.0 [facility] Comment on above: Order Comment: Speci men Type: BLOOD SPECIMENOrdering Facility: [facility] Address: [address] [place] [address] Performed By: #### 5 7021-8 ####[facility]NCINTER[facility] [id number] [place] [address] [place] MCV (RBC) [Entitic vol] 92.1 fL Normal 80.0-100.0 [facility] Comment on above: Order Comment: Speci men Type: BLOOD SPECIMENOrdering Facility: [facility] Address: [address] [place], [place] [address] Performed By: #### 5 7021-8 ####[facility] CITYNCLI [id number] [place] [address] [place] Monocytes (Bld) [#/Vol] 0.27 10*3/uL Normal <0.87 [facility] Comment on above: Order Comment: Speci men Type: BLOOD SPECIMENOrdering Facility: [facility] Address: [address] [place] [address] Performed By: #### 5 7021-8 ####[facility] ROXANNEWBLASLIA [id number] [place] [address] [place] Monocytes/100 WBC (Bld) 6.4 % Normal [facility] Comment on above: Order Comment: Speci men Type: BLOOD SPECIMENOrdering Facility: [facility] Address: [address] [place] [address] Performed By: #### 5 7021-8 ####[facility] CITYNCLIA [id number] [place] [address] [place] Neutrophils (Bld) [#/Vol] 2.78 10*3/uL Normal 1.45-7.50 [facility] Comment on above: Order Comment: Speci men Type: BLOOD SPECIMENOrdering Facility: [facility] Address: [address] [place] [address] Performed By: #### 5 7021-8 ####[facility]ALL[facility] [id number] [place] [address] [place] Neutrophils/100 WBC (Bld) 65.8 % Normal [facility] Comment on above: Order Comment: Speci men Type: BLOOD SPECIMENOrdering Facility: [facility] Address: [address] [place] [address] Performed By: #### 5 7021-8 ####[facility] ROXANNEHOUSTONNCLIA [id number] [place] [address] [place] Nucleated RBC (Bld) [#/Vol] 10*3/uL Normal <0.01 [facility] Comment on above: Order Comment: Speci men Type: BLOOD SPECIMENOrdering Facility: [facility] Address: [address] [place] [address] Performed By: #### 5 7021-8 ####[facility] HOSPITALWNCLIA [id number] [place] [address] [place] Nucleated RBC/100 WBC (Bld) [Ratio] 0.0 /100 WBC Normal [facility] Comment on above: Order Comment: Speci men Type: BLOOD SPECIMENOrdering Facility: [facility] Address: [address] [place] [address] Performed By: #### 5 7021-8 ####[facility] ROXANNEHOUSTONFRANDYA [id number] [place] [address] [place] Platelet mean volume (Bld) [Entitic vol] 9.2 fL Normal 9.0-12.7 [facility] Comment on above: Order Comment: Speci men Type: BLOOD SPECIMENOrdering Facility: [facility] Address: [address] [place] [address] Performed By: #### 5 7021-8 ####[facility] CITYBLASA [id number] [place] [address] [place] Platelets (Bld) [#/Vol] 196 10*3/uL Normal 150-400 [facility] Comment on above: Order Comment: Speci men Type: BLOOD SPECIMENOrdering Facility: [facility] Address: [address] [place] [address] Performed By: #### 5 7021-8 ####[facility] ROXANNEHOUSTONBLASLIA [id number] [place] [address] [place] RBC (Bld) [#/Vol] 4.41 10*6/uL Normal 3.90-5.20 [facility] Comment on above: Order Comment: Speci men Type: BLOOD SPECIMENOrdering Facility: [facility] Address: [address] [place] [address] Performed By: #### 5 7021-8 ####[facility] CITYNCLIA [id number] [place] [address] [place] WBC (Bld) [#/Vol] 4.23 10*3/uL Normal 3.70-11.00 [facility] Comment on above: Order Comment: Funmilayo petersen Type: BLOOD SPECIMENOrdering Facility: [facility] Address: [address] [place] [address] Performed By: #### 5 7021-8 ####[facility] KIMMIEEH OLIVEIRAST. 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 HPI: The patient is a 80-year-old female who has a past medical history significant for type 2 diabetes (metformin), hypertension and hyperlipidemia. She underwent evaluation for a cough which had been persistent for about 3 months. She had no complaints of dyspnea fever or wheezing. A CT of the chest was performed on 01/24/2022. There was a 3.5 x 3.8 x 4.3 cm mass in the right upper lobe. This abutted the right hilar region. There was no demonstrated pleural abnormality. Mediastinum and hilar regions appeared normal otherwise. There were multilevel degenerative changes of thoracic spine with a 1.4 cm area of sclerosis observed in the posterior aspect of the T9 or T12 vertebrae at the level of the pedicle on the right side for which correlation with bone scan was recommended. There was a 1 cm cyst in the medial inferior aspect of the right lobe of the liver. Patient underwent a CT-guided right lung biopsy on 02/06/2022. Pathology: -Non-small cell carcinoma, favor adenocarcinoma consistent with lung primary. Specimen was positive for TTF-1, CK7, CK 8 in rare cells that showed positivity for CK20. Complicated by pneumothorax that required chest tube. She underwent MRI of the brain which demonstrated no evidence of metastatic disease. PET scan with results noted. She also had an MRI of the thoracic spine. Images have been loaded. She underwent CT-guided biopsy of the suspicious lesion in T10 vertebral body on 03/09/2022. Pathology demonstrated fragments of sclerotic bone with bone marrow fibrosis and edema and no evidence of carcinoma. She underwent surgical evaluation at [facility]. Previous therapy: 1) Neoadjuvant carboplatin, pemetrexed and nivolumab. Underwent right VATS, right middle lobectomy, right lower lung wedge resection, mediastinal lymphadenectomy and intercostal nerve block on 06/26/2022. Pathology: A. Lymph node #7, excision: - Three (3) lymph nodes negative for neoplasm. B. Lymph node #10R, excision: - One (1) lymph node negative for neoplasm. C. Lymph node #10R, excision: - One (1) lymph node negative for neoplasm. D. Lymph node #11R, excision: - One (1) lymph node negative for neoplasm. E. Lymph node #11R, excision: - One (1) lymph node negative for neoplasm. F. Lymph node #11R, excision: - One (1) lymph node negative for neoplasm. G. Right lung, middle lobe, lobectomy: - Invasive adenocarcinoma, acinar predominant, 0.5 cm - Non-necrotizing granulomas. H. Right lung, lower lobe, wedge excision: - Patchy subpleural fibrosis with non-necrotizing granulomas, dystrophic calcium and reactive epithelial atypia. - Negative for neoplasm. I. Lymph node #4R, excision: - Three (3) lymph nodes negative for neoplasm. J. Lymph node #2R, excision: - Three (3) lymph nodes negative for neoplasm Presents for ongoing oncologic management. Interim history: Had stroke 05/28. Frontal BARAHONA and vertigo. Recalls vomiting on two occasions. [place] like she may have aspirated. On ASA and Plavix. No residual neurologic symptoms. Discharged 06/01. Started using BiPAP about 6-8 weeks ago. No frequent cough. Feels like she's getting better sleep. No significant dyspnea. Home blood pressures--SBP ~129 mmHg. Previous microablation for right sided sciatica. PMH, medications and allergies personally reviewed by me today. Any changes documented in appropriate section. ROS: Constitutional: Denies episodes of fever and night sweats. Not significantly fatigued. Neuro: Denies BARAH[place], vertigo, dizziness and imbalance. Denies symptoms of neuropathy. HEENT: No recent change in voice, vision or hearing. Resp: See above. CVS: Denies PND, orthopnea and LE swelling/edema. GI: Denies dysphagia and odynophagia. Denies reflux, n/v, change in bowel habits and abdominal pain. : Denies dysuria or gross hematuria. No symptoms of bladder outlet obstruction. Endo: Denies hot flashes. Denies polyuria and polydipsia. Denies heat and cold intolerance. Musculoskeletal: Sciatica--see previous ROS. Derm: See above. Heme: Denies unusual bleeding and unexplained bruising. Psych: Normal mood. Social: Quit smoking ~50 years ago. Rare alcohol. Two children. Daughter in [place] and son in [place]. Family: Mother--?stomach cancer. Sister-- age 12 from acute leukemia. PHYSICAL EXAM: Vitals: Blood pressure 172/ (more content not included)... Normal [facility] Comprehensive metabolic 2000 panelon 07-03-2025 Albumin [Mass/Vol] 4.4 g/dL Normal 3.9-4.9 [facility] Comment on above: Order Comment: Funmilayo petersen Type: BLOOD SPECIMENOrdering Facility: [facility] Address: [address] [place] [address] Performed By: #### 2 4323-8 ####[facility] [id number] [place] [address] [place] ALP [Catalytic activity/Vol] 66 U/L Normal 34-123 [facility] Comment on above: Order Comment: Funmilayo petersen Type: BLOOD SPECIMENOrdering Facility: [facility] Address: [address] [place] [address] Performed By: #### 2 4323-8 ####[facility] KIMMIE MILLTOWNCLIA [id number] [place] [address] [place] ALT [Catalytic activity/Vol] 16 U/L Normal 7-38 [facility] Comment on above: Order Comment: Speci men Type: BLOOD SPECIMENOrdering Facility: [facility] Address: [address] [place] [address] Performed By: #### 2 4323-8 ####[facility] HOSPITALWNCLIA [id number] [place] [address] [place] Anion gap [Moles/Vol] 10 mmol/L Normal 8-15 [facility] Comment on above: Order Comment: Speci men Type: BLOOD SPECIMENOrdering Facility: [facility] Address: [address] [place] [address] Performed By: #### 2 4323-8 ####[facility] CITYNCLIA [id number] [place] [address] [place] AST [Catalytic activity/Vol] 20 U/L Normal 13-35 [facility] Comment on above: Order Comment: Speci men Type: BLOOD SPECIMENOrdering Facility: [facility] Address: [address] [place], [place] [address] Performed By: #### 2 4323-8 ####[facility] HOSPITALWNCLIA [id number] [place] [address] [place] Bilirubin [Mass/Vol] 0.3 mg/dL Normal 0.2-1.3 [facility] Comment on above: Order Comment: Speci men Type: BLOOD SPECIMENOrdering Facility: [facility] Address: [address] [place], [place] [address] Performed By: #### 2 4323-8 ####[facility] HOSPITALWNCLIA [id number] [place] [id number] [place] Calcium [Mass/Vol] 9.9 mg/dL Normal 8.5-10.2 [facility] Comment on above: Order Comment: Speci men Type: BLOOD SPECIMENOrdering Facility: [facility] Address: [address] [place] [address] Performed By: #### 2 4323-8 ####[facility] KIMMIE MILLTOWNCLIA [id number] [place] [address] [place] Chloride [Moles/Vol] 105 mmol/L Normal 98-107 [facility] Comment on above: Order Comment: Speci men Type: BLOOD SPECIMENOrdering Facility: [facility] Address: [address] [place] [address] Performed By: #### 2 4323-8 ####[facility] MILLWNCLIA [id number] [place] [address] [place] CO2 [Moles/Vol] 27 mmol/L Normal 22-30 [facility] Comment on above: Order Comment: Speci men Type: BLOOD SPECIMENOrdering Facility: [facility] Address: [address] [place] [address] Performed By: #### 2 4323-8 ####[facility] HOSPITALWNCLIA [id number] [place] [address] [place] Creatinine [Mass/Vol] 0.72 mg/dL Normal 0.58-0.96 [facility] Comment on above: Order Comment: Speci men Type: BLOOD SPECIMENOrdering Facility: [facility] Address: [address] [place] [address] Performed By: #### 2 4323-8 ####[facility] MILLWNCLIA [id number] [place] [address] [place] eGFRcr SerPlBld CKD-EPI 2020 85 mL/min/1.73m??? Normal >=60 [facility] Comment on above: Order Comment: Speci men Type: BLOOD SPECIMENOrdering Facility: [facility] Address: [address] [place] [id number] Result Comment: Guera mated Glomerular Filtration Rate (eGFR) is calculated using the 2020 CKD-EPI creatinine equation. This equation utilizes serum creatinine, sex, and age as parameters. The creatinine assay has traceable calibration to isotope dilution-mass spectrometry. Refer to KDIGO guidelines for clinical interpretation. In patients with unstable renal function, e.g. those with acute kidney injury, the eGFR may not accurately reflect actual GFR. Performed By: #### 2 4323-8 ####[facility] [id number] [place] [address] [place] Glucose [Mass/Vol] 155 mg/dL High 74-99 [facility] Comment on above: Order Comment: Funmilayo petersen Type: BLOOD SPECIMENOrdering Facility: [facility] Address: [address] [place] [address] Result Comment: The [place] Diabetes Association (ADA) provides guidance for cutoff values for fasting glucose and random glucose. The ADA defines fasting as no caloric intake for at least 8 hours. Fasting plasma glucose results between 100 to 125 mg/dL indicate increased risk for diabetes (prediabetes). Fasting plasma glucose results greater than or equal to 126 mg/dL meet the criteria for diagnosis of diabetes. In the absence of unequivocal hyperglycemia, results should be confirmed by repeat testing. In a patient with classic symptoms of hyperglycemia or hyperglycemic crisis, random plasma glucose results greater than or equal to 200 mg/dL meet the criteria for diagnosis of diabetes. Reference: Standards of Medical Care in Diabetes 2016, [place] Diabetes Association. Diabetes Care. 2016.39(Suppl 1). Performed By: #### 2 4323-8 ####[facility] [id number] [place] [address] [place] Potassium [Moles/Vol] 4.1 mmol/L Normal 3.7-5.1 [facility] Comment on above: Order Comment: Funmilayo petersen Type: BLOOD SPECIMENOrdering Facility: [facility] Address: [address] [place] [id number] Performed By: #### 2 4323-8 ####[facility] KIMMIE MILLTOWNCLIA [id number] [place] [address] [place] Protein [Mass/Vol] 6.8 g/dL Normal 6.3-8.0 [facility] Comment on above: Order Comment: Speci men Type: BLOOD SPECIMENOrdering Facility: [facility] Address: [address] [place] [address] Performed By: #### 2 4323-8 ####[facility] ROXANNESuzanneNCLIA [id number] [place] [address] [place] Sodium [Moles/Vol] 142 mmol/L Normal 136-144 [facility] Comment on above: Order Comment: Speci men Type: BLOOD SPECIMENOrdering Facility: [facility] Address: [address] [place] [address] Performed By: #### 2 4323-8 ####[facility] JONOWBLASLIA [id number] [place] [address] [place] Urea nitrogen [Mass/Vol] 16 mg/dL Normal 7-21 [facility] Comment on above: Order Comment: Speci men Type: BLOOD SPECIMENOrdering Facility: [facility] Address: [address] [place] [address] Performed By: #### 2 4323-8 ####[facility] CITYNCLIA [id number] [place] [address] [place] [address] [address] CHEST W IVCONon CT CHEST W IVCON * * *Final Report* * * DATE OF EXAM: Jun 23 2025 1:41PM [facility] 0539 - CT CHEST W IVCON / PROCEDURE REASON: Malignant neoplasm of unspecified part of unspecified bronchus or lung (HCC) * * * * Physician Interpretation * * * * EXAMINATION: CHEST CT WITH CONTRAST CLINICAL HISTORY: History of lung cancer Technique: Spiral CT acquisition of the chest from the thoracic inlet to the upper abdomen following IV contrast. MQ: CTCW_6 Contrast: 50 mL Omnipaque [address] Radiation dose: Integrated Dose-length product (DLP) for this visit = 213 mGy*cm CT Dose Reduction Employed: Automated exposure control(AEC) and iterative recon Comparison: CT chest 11/04/2024 RESULT: Limitations: None. Lines, tubes, and devices: None. Lung parenchyma and airways: Postoperative changes from a right middle lobectomy and right lower lobe wedge resection. There is a new branching tubular opacity in the lateral left upper lobe (6:88), likely due to mucous plugging. There are some clustered nodules in the right lower lobe (6:112) which are likely infectious/inflammato ry. Unchanged nodular density along the right heart border (5:129). No new suspicious pulmonary nodules. Central airways are patent. Pleural space: No pleural effusion. No pleural thickening. Lower neck, lymph nodes, and mediastinum: The imaged thyroid gland is normal. No lymphadenopathy in the supraclavicular, axillary, mediastinal, or hilar regions. Heart, pericardium, and thoracic vessels: The thoracic aorta and main pulmonary artery are normal in caliber. Atherosclerotic calcifications of the thoracic aorta. The cardiac chambers are normal in size. Coronary artery atherosclerotic calcifications are noted, although the study is not optimized for coronary assessment. No pericardial effusion or thickening. Bones and soft tissues: Unchanged sclerotic density in the vertebral body of T10. Degenerative disease of the thoracic spine.. No chest wall mass. Upper abdomen: No acute abnormality in the imaged upper abdomen. Nonobstructing left renal calculi. Localizer images: No additional findings. IMPRESSION: 1. New branching tubular opacity in the left upper lobe likely due to mucous plugging 2. Clustered nodules in the right lower lobe which are likely infectious/inflammato ry 3. Unchanged nodular density along the right heart border 4. No new thoracic lymphadenopathy 5. Unchanged sclerotic density in the vertebral body of T10 Dry Plasterer: DEV Transcribe Date/Time: Jul 02 2025 3:05P Dictated by : ANITA BALDWIN MD This examination was interpreted and the report reviewed and electronically signed by: ANITA BALDWIN MD on Jul 02 2025 3:17PM EST [id number] N Normal [facility] Creatinine and Glomerular fi ltration rate.predicted panel (S/P/Bld)on 06-23-2025 Creatinine [Mass/Vol] 0.68 mg/dL Normal 0.58-0.96 [facility] Comment on above: Order Comment: Speci men Type: BLOOD SPECIMENOrdering Facility: [facility] Address: [address] [place] [address] Performed By: #### 4 5066-8 ####[facility] [id number] [place] [address] [place] eGFRcr SerPlBld CKD-EPI 2020 89 mL/min/1.73m??? Normal >=60 [facility] Comment on above: Order Comment: Speci men Type: BLOOD SPECIMENOrdering Facility: [facility] Address: [address] [place] [address] Result Comment: Guera mated Glomerular Filtration Rate (eGFR) is calculated using the 2020 CKD-EPI creatinine equation. This equation utilizes serum creatinine, sex, and age as parameters. The creatinine assay has traceable calibration to isotope dilution-mass spectrometry. Refer to KDIGO guidelines for clinical interpretation. In patients with unstable renal function, e.g. those with acute kidney injury, the eGFR may not accurately reflect actual GFR. Performed By: #### 4 5066-8 ####[facility] [id number] [place] [address] [place] Absolute lymphocyte countOrd ered By: Angy Bautista on 06-15-2025 Lymphocytes Auto (Unsp spec) [#/Vol] 1.66 10*3/uL 0.83-4.51 [facility] Absolute neutrophil countOrd ered By: Angy Bautista on 06-15-2025 Neutrophils (Bld) [#/Vol] 2.6 10*3/uL 2.0-7.7 [facility] Anion gap in Serum or Plasma Ordered By: Angy Bautista on 06-15-2025 Anion gap [Moles/Vol] 12 mmol/L 5-15 [facility] Automated blood erythrocyte countOrdered By: Angy Bautista on 06-15-2025 RBC (Bld) [#/Vol] 4.39 10*6/uL Normal 4.2-5.4 [facility] Comment on above: Performed By: #### L 100.0100, L500.4050, L502.0250, L500.4100, L506.1001 #### [facility] [address] [place], [place], [id number] Automated blood hematocrit ( percentage)Ordered By: Angy Bautista on 06-15-2025 Hematocrit (Bld) [Volume fraction] 40.7 % Normal 37-47 [facility] Comment on above: Performed By: #### L 100.0100, L500.4050, L502.0250, L500.4100, L506.1001 #### [facility] [address] [place], [place], [address] Automated lymphocyte count a s percentage of total leukocytesOrdered By: Angy Bautista on 06-15-2025 Lymphocytes/100 WBC Auto (Unsp spec) 35.9 % 19-41 [facility] BUN/creatinine ratioOrdered By: Angy Bautista on 06-15-2025 Urea nitrogen/Creatinine [Mass ratio] 24.9 mg/mg High 10-20 [facility] Basophil percentageOrdered B y: Angy Bautista on 06-15-2025 Basophils/100 WBC (Bld) 0.4 % Normal 0-1 [facility] Comment on above: Performed By: #### L 100.0100, L500.4050, L502.0250, L500.4100, L506.1001 #### [facility] [address] [place], [place], [id number] Bilirubin, totalOrdered By: Angy Bautista on 06-15-2025 Bilirubin [Mass/Vol] 0.41 mg/dL Normal 0.00-1.30 [facility] Comment on above: Performed By: #### L 100.0100, L500.4050, L502.0250, L500.4100, L506.1001 #### [facility] [address] [place], [address] CBC W/Diff, Automatedon 07-2 Absolute Lymph 1.66 X10 3/uL Normal 0.83-4.51 [facility] Comment on above: Performed By: #### L 100.0100, L500.4050, L502.0250, L500.4100, L506.1001 #### [facility] [address] [place], [address] Absolute Neut 2.6 X10 3/uL Normal 2.0-7.7 [facility] Comment on above: Performed By: #### L 100.0100, L500.4050, L502.0250, L500.4100, L506.1001 #### [facility] [address] [place], [address] IG% 0.200 Normal 0.0-0.9 [facility] Comment on above: Result Comment: IG% - Immature Granulocytes (promyelocytes, myelocytes and metamyelocytes) > 1% indicates that a LEFT SHIFT is Present. Performed By: #### L 100.0100, L500.4050, L502.0250, L500.4100, L506.1001 #### [facility] [address] [place], [address] Lymphocytes/100 WBC (Bld) 35.9 % Normal 19-41 [facility] Comment on above: Performed By: #### L 100.0100, L500.4050, L502.0250, L500.4100, L506.1001 #### [facility] [address] [place], [address] Nucleated RBC (Bld) [#/Vol] 0 10*3/uL Normal 0-5 [facility] Comment on above: Performed By: #### L 100.0100, L500.4050, L502.0250, L500.4100, L506.1001 #### [facility] [address] [place], [address] RDW SD 45.0 fl High 35.1-43.9 [facility] Comment on above: Performed By: #### L 100.0100, L500.4050, L502.0250, L500.4100, L506.1001 #### [facility] [address] [place], [address] Calculated very low density lipoprotein (VLDL) cholesterol measurementOrdered By: Angy Bautista on 06-15-2025 Calculated very low density lipoprotein (VLDL) cholesterol measurement 14 mg/dL 5-40 [facility] Carbon dioxide, total [Moles /volume] in Central venous bloodOrdered By: Angy Bautista on 06-15-2025 CO2 [Moles/Vol] 25.5 mmol/L Normal 21.0-32.0 [facility] Comment on above: Performed By: #### L 100.0100, L500.4050, L502.0250, L500.4100, L506.1001 #### [facility] [address] [place], [place], [id number] Chloride assayOrdered By: Harshal Bautista on 06-15-2025 Chloride [Moles/Vol] 103 mmol/L Normal 98-108 [facility] Comment on above: Performed By: #### L 100.0100, L500.4050, L502.0250, L500.4100, L506.1001 #### [facility] [address] [place], [address] Comprehensive Metabolic Prof ilon 06-15-2025 ALK PHOS 69 U/L Normal 35-104 [facility] Comment on above: Performed By: #### L 100.0100, L500.4050, L502.0250, L500.4100, L506.1001 #### [facility] [address] [place], [address] BUN/CRE 24.9 RATIO High 10-20 [facility] Comment on above: Performed By: #### L 100.0100, L500.4050, L502.0250, L500.4100, L506.1001 #### [facility] [address] [place], [address] GAP 12 Normal 5-15 [facility] Comment on above: Performed By: #### L 100.0100, L500.4050, L502.0250, L500.4100, L506.1001 #### [facility] [address] [place], [address] Potassium [Moles/Vol] 4.4 mmol/L Normal 3.3-5.1 [facility] Comment on above: Performed By: #### L 100.0100, L500.4050, L502.0250, L500.4100, L506.1001 #### [facility] [address] [place], [address] T PROT 7.2 g/dL Normal 5.9-8.4 [facility] Comment on above: Performed By: #### L 100.0100, L500.4050, L502.0250, L500.4100, L506.1001 #### [facility] [address] [place], [address] Comprehensive Metabolic Prof ilOrdered By: Angy Bautista on 06-15-2025 AST [Catalytic activity/Vol] 22 U/L Normal <=31 [facility] Comment on above: Performed By: #### L 100.0100, L500.4050, L502.0250, L500.4100, L506.1001 #### [facility] [address] [place], [address] Eosinophil percentageOrdered By: Angy Bautista on 06-15-2025 Eosinophils/100 WBC (Bld) 0.6 % Normal 0-5 [facility] Comment on above: Performed By: #### L 100.0100, L500.4050, L502.0250, L500.4100, L506.1001 #### [facility] [address] [place], [place], [id number] Erythrocyte distribution wid th ratioOrdered By: Angy Bautista on 06-15-2025 Erythrocyte distribution width (RBC) [Ratio] 13.2 % Normal 11.6-14.6 [facility] Comment on above: Performed By: #### L 100.0100, L500.4050, L502.0250, L500.4100, L506.1001 #### [facility] [address] [place], [address] Erythrocyte distribution wid th standard deviationOrdered By: Angy Bautista on 06-15-2025 Erythrocyte distribution width (RBC) [Ratio] 45.0 fl High 35.1-43.9 [facility] Glomerular filtration rate ( GFR) estimation/1.73 sq m using serum, plasma, or whole bOrdered By: Angy Bautista on 06-15-2025 GFR/1.73 sq M.predicted among non-blacks MDRD (S/P/Bld) [Vol rate/Area] 81 mL/min/{1.73_m2} Normal >60 [facility] Comment on above: mL/min/1.73m2 CKD-EP I Creatinine Equation (2020) Result Comment: mL/m in/1.73m2 CKD-EPI Creatinine Equation (2020) Performed By: #### L 100.0100, L500.4050, L502.0250, L500.4100, L506.1001 #### [facility] [address] [place], [address] Hemoglobin measurementOrdere d By: Angy Bautista on 06-15-2025 Hemoglobin (Bld) [Mass/Vol] 13.3 g/dL Normal 12.0-15.0 [facility] Comment on above: Performed By: #### L 100.0100, L500.4050, L502.0250, L500.4100, L506.1001 #### [facility] [address] [place], [address] Immature granulocytes/100 WB C Auto (Bld)Ordered By: Angy Bautista on 06-15-2025 Immature granulocytes/100 WBC (Bld) 0.200 % 0.0-0.9 [facility] Comment on above: IG% - Immature Granu locytes (promyelocytes, myelocytes and metamyelocytes) > 1% indicates that a LEFT SHIFT is Present. LDL calc ser/plasOrdered By: Angy Bautista on 06-15-2025 Cholesterol in LDL [Mass/Vol] 91 mg/dL Normal [facility] Comment on above: Fhlroyhdws=999-002 m g/dL & Higher Cjfi=770 mg/dL or greaterFriedwald Equation for LDL-C Result Comment: Bord cjxoxs=777-684 mg/dL Higher Rcme=617 mg/dL or greater Friedwald Equation for LDL-C Performed By: #### L 100.0100, L500.4050, L502.0250, L500.4100, L506.1001 #### [facility] [address] [place], [address] Lipid Profileon 06-15-2025 CHOL:HDL 2.46 Normal [facility] Comment on above: Performed By: #### L 100.0100, L500.4050, L502.0250, L500.4100, L506.1001 #### [facility] [address] [place], [address] Cholesterol in VLDL [Mass/Vol] 14 mg/dL Normal 5-40 [facility] Comment on above: Performed By: #### L 100.0100, L500.4050, L502.0250, L500.4100, L506.1001 #### [facility] [address] [place], [address] MCV (mean corpuscular volume ) determinationOrdered By: Angy Bautista on 06-15-2025 MCV (RBC) [Entitic vol] 92.7 fL Normal 81-99 [facility] Comment on above: Performed By: #### L 100.0100, L500.4050, L502.0250, L500.4100, L506.1001 #### [facility] [address] [place], [address] Mean corpuscular hemoglobin (MCH) determinationOrdered By: Angy Bautista on 06-15-2025 MCH (RBC) [Entitic mass] 30.3 pg Normal 27.0-32.0 [facility] Comment on above: Performed By: #### L 100.0100, L500.4050, L502.0250, L500.4100, L506.1001 #### [facility] [address] [place], [address] Mean corpuscular hemoglobin concentration (MCHC) determinationOrdered By: Angy Bautista on 06-15-2025 MCHC (RBC) [Mass/Vol] 32.7 g/dL Normal 32-36 [facility] Comment on above: Performed By: #### L 100.0100, L500.4050, L502.0250, L500.4100, L506.1001 #### [facility] [address] [place], [address] Mean platelet volume determi nationOrdered By: Angy Bautista on 06-15-2025 Platelet mean volume (Bld) [Entitic vol] 9.9 fL Normal 6.2-12.0 [facility] Comment on above: Performed By: #### L 100.0100, L500.4050, L502.0250, L500.4100, L506.1001 #### [facility] [address] [place], [address] Microalb:Creat Ratio,Random URon 07-28-2025 Creatinine [Mass/Vol] 21.20 mg/dL Low 28.00-217.00 [facility] Comment on above: Performed By: #### L 100.0100, L500.4050, L502.0250, L500.4100, L506.1001 #### [facility] [address] [place], [place], [address] MALB:CREAT UNABLE TO CALCULATE Normal <30 mg/g CRE [facility] Comment on above: Performed By: #### L 100.0100, L500.4050, L502.0250, L500.4100, L506.1001 #### [facility] [address] [place], [place], [address] MICROALBUMIN,UR < 12.0 Normal <20 mg/L [facility] Comment on above: Performed By: #### L 100.0100, L500.4050, L502.0250, L500.4100, L506.1001 #### [facility] [address] [place], [place], [address] Microalbumin/creat ratio urO rdered By: Angy Bautista on 06-15-2025 Urine microalbumin/creatinin e ratio measurement UNABLE TO CALCULATE mg/g CRE <30 [facility] Monocyte percentageOrdered B y: Angy Bautista on 06-15-2025 Monocytes/100 WBC (Bld) 7.6 % Normal 0-10 [facility] Comment on above: Performed By: #### L 100.0100, L500.4050, L502.0250, L500.4100, L506.1001 #### [facility] [address] [place], [place], [address] Neutrophil percentageOrdered By: Angy Bautista on 06-15-2025 Neutrophils/100 WBC (Bld) 55.3 % Normal 47-70 [facility] Comment on above: Performed By: #### L 100.0100, L500.4050, L502.0250, L500.4100, L506.1001 #### [facility] [address] [place], [address] Nucleated red blood cell per centageOrdered By: Angy Bautista on 06-15-2025 Nucleated RBC/100 WBC (Bld) [Ratio] 0 % 0-5 [facility] Platelet countOrdered By: Harshal Bautista on 06-15-2025 Platelets (Bld) [#/Vol] 236 10*3/uL Normal 150-450 [facility] Comment on above: Performed By: #### L 100.0100, L500.4050, L502.0250, L500.4100, L506.1001 #### [facility] [address] [place], [place], [address] Potassium measurement (mass/ volume)Ordered By: Angy Bautista on 06-15-2025 Potassium (Unsp spec) [Mass/Vol] 4.4 mmol/L 3.3-5.1 [facility] Random urine creatinine jackie urement (mass/volume)Ordered By: Angy Bautista on 06-15-2025 Creatinine Unsp time (U) [Mass/Vol] 21.20 mg/dL Low 28.00-217.00 [facility] Screening total cholesterol/ high density lipoprotein (HDL) cholesterol ratioOrdered By: Angy Bautista on 06-15-2025 Cholesterol.total/Chol esterol in HDL [Mass ratio] 2.46 {ratio} [facility] Serum creatinine measurement (mass/volume)Ordered By: Angy Bautista on 06-15-2025 Creatinine [Mass/Vol] 0.75 mg/dL Normal 0.70-1.20 [facility] Comment on above: Performed By: #### L 100.0100, L500.4050, L502.0250, L500.4100, L506.1001 #### [facility] [address] [place], [address] Serum globulin measurementOr dered By: Angy Bautista on 06-15-2025 Globulin (S) [Mass/Vol] 2.9 g/dL Normal 2.2-4.2 [facility] Comment on above: Performed By: #### L 100.0100, L500.4050, L502.0250, L500.4100, L506.1001 #### [facility] [address] [place], [address] Serum glucose measurement (m ass/volume)Ordered By: Angy Bautista on 06-15-2025 Glucose [Mass/Vol] 115 mg/dL High 70-99 [facility] Comment on above: Performed By: #### L 100.0100, L500.4050, L502.0250, L500.4100, L506.1001 #### [facility] [address] [place], [place], [id number] (920) Serum or plasma alanine clay otransferase (ALT) measurementOrdered By: Angy Bautista on 06-15-2025 ALT [Catalytic activity/Vol] 18 U/L Normal <=34 [facility] Comment on above: Performed By: #### L 100.0100, L500.4050, L502.0250, L500.4100, L506.1001 #### [facility] [address] [place], [address] Serum or plasma albumin jackie urement (mass/volume)Ordered By: Angy Bautista on 06-15-2025 Albumin [Mass/Vol] 4.4 g/dL Normal 3.4-4.8 [facility] Comment on above: Performed By: #### L 100.0100, L500.4050, L502.0250, L500.4100, L506.1001 #### [facility] [address] [place], [address] Serum or plasma albumin/glob ulin mass ratioOrdered By: Angy Bautista on 07-28-2025 Albumin/Globulin [Mass ratio] 1.5 {ratio} Normal 0.9-2.4 [facility] Comment on above: Performed By: #### L 100.0100, L500.4050, L502.0250, L500.4100, L506.1001 #### [facility] [address] [place], [address] Serum or plasma alkaline clara sphatase measurementOrdered By: Angy Bautista on 06-15-2025 ALP [Catalytic activity/Vol] 69 U/L 35-104 [facility] Serum or plasma calcium jackie urement (mass/volume)Ordered By: Angy Bautista on 06-15-2025 Calcium [Mass/Vol] 9.7 mg/dL Normal 7.6-11.0 [facility] Comment on above: Performed By: #### L 100.0100, L500.4050, L502.0250, L500.4100, L506.1001 #### [facility] [address] [place], [place], [address] Serum or plasma cholesterol in HDL measurement (mass/volume)Ordered By: Angy Bautista on 06-15-2025 Cholesterol in HDL [Mass/Vol] 72 mg/dL Normal [facility] Comment on above: National Cholesterol Education Program (NCEP) guidelines:<40 mg/dL: Low HDL-cholesterol (major risk factor for CHD)>= 60 mg/dL: High HDL-cholesterol (negative risk factor for CHD)HDL-cholesterol is affected by a number of factors, e.g. smoking, exercise, hormones, sex and age. Result Comment: Sadaf onal Cholesterol Education Program (NCEP) guidelines: <40 mg/dL: Low HDL-cholesterol (major risk factor for CHD) >= 60 mg/dL: High HDL-cholesterol (negative risk factor for CHD) HDL-cholesterol is affected by a number of factors, e.g. smoking, exercise, hormones, sex and age. Performed By: #### L 100.0100, L500.4050, L502.0250, L500.4100, L506.1001 #### [facility] [address] [place], [address] Serum or plasma cholesterol measurement (mass/volume)Ordered By: Angy Bautista on 06-15-2025 Cholesterol [Mass/Vol] 176 mg/dL Normal <=200 [facility] Comment on above: Cholesterol level, D esirable <200 mg/dLBorderline high cholesterol 200-239 mg/dLHigh cholesterol >=240 mg/dLRecommendations of the NCEP Adult Treatment Panel for the following risk-cutoff thresholds for the [place] population. Result Comment: Chol esterol level, Desirable <200 mg/dL Borderline high cholesterol 200-239 mg/dL High cholesterol >=240 mg/dL Recommendations of the NCEP Adult Treatment Panel for the following risk-cutoff thresholds for the [place] population. Performed By: #### L 100.0100, L500.4050, L502.0250, L500.4100, L506.1001 #### [facility] [address] [place], [address] Serum or plasma urea nitroge n measurement (mass/volume)Ordered By: Angy Bautista on 06-15-2025 Urea nitrogen [Mass/Vol] 19 mg/dL Normal 4-19 [facility] Comment on above: Performed By: #### L 100.0100, L500.4050, L502.0250, L500.4100, L506.1001 #### [facility] [address] [place], [address] Sodium levelOrdered By: Katya Bautista on 06-15-2025 Sodium [Moles/Vol] 140 mmol/L Normal 133-145 [facility] Comment on above: Performed By: #### L 100.0100, L500.4050, L502.0250, L500.4100, L506.1001 #### [facility] [address] [place], [address] Total proteinOrdered By: Danyel Bautista on 06-15-2025 Protein [Mass/Vol] 7.2 g/dL 5.9-8.4 [facility] Triglycerides measurementOrd ered By: Angy Bautista on 06-15-2025 Triglyceride [Mass/Vol] 68 mg/dL Normal [facility] Comment on above: The drugs N-Acetylcy steine and Metamizole may falsely depress this assay. Normal range: <150 mg/dLBorderline High: 150-199 mg/dLHigh: 200-499 mg/dLVery High: >500 mg/dL Result Comment: The drugs N-Acetylcysteine and Metamizole may falsely depress this assay. Normal range: <150 mg/dL Borderline High: 150-199 mg/dL High: 200-499 mg/dL Very High: >500 mg/dL Performed By: #### L 100.0100, L500.4050, L502.0250, L500.4100, L506.1001 #### [facility] [address] [place], [place], [address] Urine albumin measurement [facility] detection limit of 20 mg/L or less (mass/volume)Ordered By: Angy Bautista on 06-15-2025 Albumin DL <= 20 mg/L (U) [Mass/Vol] < 12.0 mg/L <20 mg/L [facility] Vitamin D,25 Hydroxyon 06-15 Vitamin D 25-OH 81.4 ng/mL Normal 30-100 [facility] Comment on above: Result Comment: Juanis min D Status Deficiency: <20 ng/mL (50nmol/L) Insufficiency: 20-30 ng/mL (50-75 nmol/L) Sufficiency: 30-100 ng/mL (75-250 nmol/L) Toxicity: >100 ng/mL (>250 nmol/L) Performed By: #### L 100.0100, L500.4050, L502.0250, L500.4100, L506.1001 #### [facility] [address] [place], [address] White blood cell (WBC) count Ordered By: Angy Bautista on 06-15-2025 WBC (Bld) [#/Vol] 4.6 10*3/uL Normal 4.4-11.0 [facility] Comment on above: Performed By: #### L 100.0100, L500.4050, L502.0250, L500.4100, L506.1001 #### [facility] [address] [place], [address] Urine Cultureon 06-03-2025 [facility] Mixed Gram Positive Organisms [place] Count 11,000-25,000 MIXC Mixed contaminants. Submit a new specimen if indicated. Normal [facility] Comment on above: Performed By: #### M 100.2200 #### [facility] [address] [facility] [place], [address] Urine cultureOrdered By: Kerrie Esquivel on 06-01-2025 Bacteria identified Cx Nom (U) Positive Abnormal [facility] Glucose (Bld) [Mass/Vol]on 0 05-31-2025 Glucose [Mass/Vol] 157 mg/dL High 65 - 99 mg/dL [facility] Interpretation and review of laboratory results Abnormal [facility] Glucose [Mass/Vol] 232 mg/dL High 65 - 99 mg/dL [facility] Interpretation and review of laboratory results Abnormal [facility] POC GLUCOSE - [facility] 025 Glucose [Mass/Vol] 157 mg/dL High 65-99 [facility] Comment on above: Performed By: #### 4 6932 #### [facility] [address] [place], [place] [address] Cyrus Melgar M.D. [id number] Glucose [Mass/Vol] 232 mg/dL High 65-99 [facility] Comment on above: Performed By: #### 4 6932 #### [facility] [address] [place], [place] [address] Cyrus Melgar M.D. [id number] Disch [place] 05-30-2025 Disch Summ T11 :This report has been cancelled. Normal [facility] Glucose (Bld) [Mass/Vol]on 0 05-30-2025 Glucose [Mass/Vol] 188 mg/dL High 65 - 99 mg/dL [facility] Interpretation and review of laboratory results Abnormal [facility] Glucose [Mass/Vol] 187 mg/dL High 65 - 99 mg/dL [facility] Interpretation and review of laboratory results Abnormal [facility] Glucose [Mass/Vol] 152 mg/dL High 65 - 99 mg/dL [facility] Interpretation and review of laboratory results Abnormal [facility] Glucose [Mass/Vol] 157 mg/dL High 65 - 99 mg/dL [facility] Interpretation and review of laboratory results Abnormal [facility] Glucose [Mass/Vol] 164 mg/dL High 65 - 99 mg/dL [facility] Interpretation and review of laboratory results Abnormal [facility] Glucose [Mass/Vol] 188 mg/dL High [address] [place] [address] Comment on above: Performed By: #### 4 [id number] #### [facility] [address] [place], [place] [address] Cyrus Melgar M.D. [id number] Glucose [Mass/Vol] 187 mg/dL [address] Comment on above: Performed By: #### 4 [id number] #### [facility] [address] [place] [address] Cyrus Melgar M.D. [id number] Glucose [Mass/Vol] 152 mg/dL [address] Comment on above: Performed By: #### 4 [id number] #### [facility] [address] [place], [place] [address] Cyrus Melgar M.D. [id number] Glucose [Mass/Vol] 157 mg/dL [address] Comment on above: Performed By: #### 4 [id number] #### [facility] [address] [place], [place] [address] Cyrus Melgar M.D. [id number] Glucose [Mass/Vol] 164 mg/dL [address] Comment on above: Performed By: #### 4 [id number] #### [facility] [address] [place], [place] [address] Cyrus Melgar M.D. [id number] BASIC METABOLIC PANEL 05-19 Anion gap [Moles/Vol] 17 mmol/L Normal 10-20 [facility] Comment on above: Order Comment: [facility] has implemented the eGFR calculation approach that does not have a coefficient for race that conforms to the NKF-ASN Task Force Recommendations. Performed By: #### 4 [id number] #### LAB [address] [place], [place] [address] Cyrus Melgar M.D. [id number] Calcium [Mass/Vol] 8.9 mg/dL Normal 8.4-10.2 [facility] Comment on above: Order Comment: [facility] has implemented the eGFR calculation approach that does not have a coefficient for race that conforms to the NKF-ASN Task Force Recommendations. Performed By: #### 4 [id number] #### LAB [address] [place], [place] [address] Cyrus Melgar M.D. [id number] Chloride [Moles/Vol] 102 mmol/L Normal 98-108 [facility] Comment on above: Order Comment: [facility] has implemented the eGFR calculation approach that does not have a coefficient for race that conforms to the NKF-ASN Task Force Recommendations. Performed By: #### 4 [id number] #### LAB [address] [place], [place] [address] Cyrus Melgar M.D. [id number] Creatinine [Mass/Vol] 0.80 mg/dL Normal 0.60-1.20 [facility] Comment on above: Order Comment: [facility] has implemented the eGFR calculation approach that does not have a coefficient for race that conforms to the NKF-ASN Task Force Recommendations. Performed By: #### 4 [id number] #### LAB [address] [place], [place] [address] Cyrus Melgar M.D. [id number] EGFR 75 mL/min/1.73 m2 Normal >=60 [facility] Comment on above: Order Comment: [facility] has implemented the eGFR calculation approach that does not have a coefficient for race that conforms to the NKF-ASN Task Force Recommendations. Result Comment: Guera mated GFR was calculated using the 2020 CKD-EPI creatinine equation. Performed By: #### 4 [id number] #### [facility] [address] [place] [address] Cyrus Melgar M.D. [id number] Glucose [Mass/Vol] 115 mg/dL High 65-99 [facility] Comment on above: Order Comment: [facility] has implemented the eGFR calculation approach that does not have a coefficient for race that conforms to the NKF-ASN Task Force Recommendations. Performed By: #### 4 [id number] #### [facility] [address] [place] [address] Cyrus Melgar M.D. [id number] HCO3 (Bld) [Moles/Vol] 23 mmol/L Normal 21-32 [facility] Comment on above: Order Comment: [facility] has implemented the eGFR calculation approach that does not have a coefficient for race that conforms to the NKF-ASN Task Force Recommendations. Performed By: #### 4 6932 #### LAB [address] [place] [address] Cyrus Melgar M.D. [id number] Potassium [Moles/Vol] 4.2 mmol/L Normal 3.5-5.1 [facility] Comment on above: Order Comment: [facility] has implemented the eGFR calculation approach that does not have a coefficient for race that conforms to the NKF-ASN Task Force Recommendations. Result Comment: Slig htly Hemolyzed Performed By: #### 4 6919 #### [facility] [address] [place] [address] Cyrus Melgar M.D. [id number] Sodium [Moles/Vol] 138 mmol/L Normal 135-145 [facility] Comment on above: Order Comment: [facility] has implemented the eGFR calculation approach that does not have a coefficient for race that conforms to the NKF-ASN Task Force Recommendations. Performed By: #### 4 6932 #### [facility] [address] [place] [address] Cyrus Melgar M.D. [id number] Urea nitrogen [Mass/Vol] 25 mg/dL Normal 8-25 [facility] Comment on above: Order Comment: [facility] has implemented the eGFR calculation approach that does not have a coefficient for race that conforms to the NKF-ASN Task Force Recommendations. Performed By: #### 4 6932 #### LAB [address] [place], [place] [address] Cyrus Melgar M.D. [id number] Urea nitrogen/Creatinine [Mass ratio] 31.3 mg/mg High 10.0-20.0 [facility] Comment on above: Order Comment: [facility] has implemented the eGFR calculation approach that does not have a coefficient for race that conforms to the NKF-ASN Task Force Recommendations. Performed By: #### 4 6932 #### LAB [address] [place], [place] [address] Cyrus Melgar M.D. [id number] Basic metabolic 2000 panelOr dered By: Dory Cheney on 05-29-2025 Anion gap [Moles/Vol] 17 mmol/L 10 - 2 0 mmol/L [facility] Calcium [Mass/Vol] 8.9 mg/dL 8.4 - 10. 2 mg/dL [facility] Chloride [Moles/Vol] 102 mmol/L 98 - 10 8 mmol/L [facility] Creatinine [Mass/Vol] 0.8 mg/dL 0.60 - 1.20 mg/dL [facility] GFR/1.73 sq M.predicted CKD-EPI (S/P/Bld) [Vol rate/Area] 75 - PINF [facility] Comment on above: Estimated GFR was ca lculated using the 2020 CKD-EPI creatinine equation. Glucose [Mass/Vol] 115 mg/dL High 65 - 99 mg/dL [facility] HCO3 [Moles/Vol] 23 mmol/L 21 - 32 mmol/L [facility] Potassium [Moles/Vol] 4.2 mmol/L 3.5 - 5.1 mmol/L [facility] Comment on above: Slightly Hemolyzed Sodium [Moles/Vol] 138 mmol/L 135 - 145 mmol/L [facility] Urea nitrogen [Mass/Vol] 25 mg/dL 8 - 25 mg/dL [facility] Urea nitrogen/Creatinine [Mass ratio] 31.3 mg/mg High 10.0 - 20.0 [facility] has implemented the eGFR calculation approach that does not have a coefficient for race that conforms to the NKF-ASN Task Force Recommendations. [facility] CBCon 05-29-2025 AUTO NRBC 0.0 % Normal [facility] Comment on above: Performed By: #### 4 5516 #### LAB [address] [place] [address] Cyrus Melgar M.D. [id number] AUTO NRBC ABS COUNT 0.00 K/mcL Normal 0.00-0.00 [facility] Comment on above: Performed By: #### 4 0369 #### LAB [address] [place] [address] Cyrus Melgar M.D. [id number] Erythrocyte distribution width (RBC) [Ratio] 13.3 % Normal 11.6-14.8 [facility] Comment on above: Performed By: #### 4 3256 #### LAB [address] [place] [address] Cyrus Melgar M.D. [id number] Hematocrit (Bld) [Volume fraction] 41.2 % Normal 36.0-46.0 [facility] Comment on above: Performed By: #### 4 6672 #### LAB [address] [place] [address] Cyrus Melgar M.D. [id number] Hemoglobin (Bld) [Mass/Vol] 13.1 g/dL Normal 12.0-16.0 [facility] Comment on above: Performed By: #### 4 1997 #### LAB [address] [place] [address] Cyrus Melgar M.D. [id number] MCH (RBC) [Entitic mass] 29.8 pg Normal 26.0-34.0 [facility] Comment on above: Performed By: #### 4 1162 #### LAB [address] [place] [address] Cyrus Melgar M.D. [id number] MCV (RBC) [Entitic vol] 93.8 fL Normal 80.0-100.0 [facility] Comment on above: Performed By: #### 4 4891 #### LAB [address] [place] [address] Cyrus Melgar M.D. [id number] MEAN CORPUSCULAR HEMOGLOBIN CONC 31.8 g/dL Normal 31.0-37.0 [facility] Comment on above: Performed By: #### 4 [id number] #### LAB [address] [place] [address] Cyrus Melgar M.D. [id number] Platelet mean volume (Bld) [Entitic vol] 9.9 fL Normal 9.4-12.4 [facility] Comment on above: Performed By: #### 4 [id number] #### LAB [address] [place] [address] Cyrus Melgar M.D. [id number] Platelets (Bld) [#/Vol] 190 10*3/uL Normal 150-400 [facility] Comment on above: Performed By: #### 4 6932 #### LAB [address] [place] [address] Cyrus Melgar M.D. [id number] RBC (Bld) [#/Vol] 4.39 10*6/uL Normal 4.00-5.20 [facility] Comment on above: Performed By: #### 4 6932 #### LAB [address] [place] [address] Cyrus Melgar M.D. [id number] WBC (Bld) [#/Vol] 7.58 10*3/uL Normal 4.50-11.00 [facility] Comment on above: Performed By: #### 4 [id number] #### LAB [address] [place] [address] Cyrus Melgar M.D. [id number] CBC panel Auto (Bld)on 05-29 Erythrocyte distribution width (RBC) [Entitic vol] 13.3 % 11.6 - 14.8 % [facility] Hematocrit (Bld) [Volume fraction] 41.2 % 36.0 - 46.0 % [facility] Hemoglobin (Bld) [Mass/Vol] 13.1 g/dL 12.0 - 16.0 g/dL [facility] MCH (RBC) [Entitic mass] 29.8 pg 26.0 - 34.0 pg [facility] MCHC (RBC) [Mass/Vol] 31.8 g/dL 31.0 - 37.0 g/dL [facility] MCV (RBC) [Entitic vol] 93.8 fL 80.0 - 100.0 fL [facility] Nucleated RBC (Bld) [#/Vol] 0 10*3/uL [facility] Nucleated RBC/100 WBC (Bld) [Ratio] 0 % [facility] Platelet mean volume (Bld) [Entitic vol] 9.9 fL 9.4 - 12.4 fL [facility] Platelets (Bld) [#/Vol] 190 10*3/uL [facility] RBC (Bld) [#/Vol] 4.39 10*6/uL [facility] WBC (Bld) [#/Vol] 7.58 10*3/uL [facility] CONSULTon 05-29-2025 CONSULT Neurology Inpatient Notes [facility] [place] [phone] (phone)/[phone] (fax) Patient: Lidia Ortiz Date of : 1945 Primary Care Provider: Ferdinand Montague DO Assessment/Plan: Patient developed sudden onset of left frontal sharp pain accompanied by transient loss of consciousness, nausea, vertiginous sensation. Telestroke neurology was activated. She was given TNK and admitted to ICU. Symptoms lasted around 7 hours in duration and spontaneously resolved. Brain MRI showed no acute stroke. She is on aspirin 81 mg daily. She gets myalgia with pravastatin but doing well with rosuvastatin. Consider whether she had TIA since her symptoms resolved after 7 hours and brain MRI showed no acute infarct. She has an incidental PFO. Her cerebrovascular risk factors include age, hypertension, hyperlipidemia, diabetes mellitus, obstructive sleep apnea, and family history of stroke. Labs/Imaging/Ancillar y test: CBC was normal. BUN and creatinine were normal. Serum sodium and potassium were normal. LDL-C 86. Hemoglobin A1c 7.3. Ionized calcium was normal. EKG showed sinus bradycardia with first-degree AV block and right bundle branch block with left anterior fascicular block. Cardiac echo showed PFO with left to right shunting. Pulmonary hypertension. Carotid Doppler showed less than 50% bilateral ICA stenosis. Bilateral vertebral artery stenosis. Brain MRI: No acute ischemia. Chronic intracranial change described above. Head CT: 1. No acute findings. No hemorrhage. No masses. 2. Moderate brain atrophy. Moderate chronic microvascular changes. CTA: 1. 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 2. Focal severe stenosis at the origin of the non dominant right vertebral artery. 3. Short segment of irregularity and a beaded appearance in the left cervical internal carotid artery, suspicious for fibromuscular dysplasia. 4. No acute findings on noncontrast head CT. MRI is a more sensitive examination to evaluate for acute infarction. 5. Mild generalized parenchymal volume loss and findings that raise the possibility for a component of superimposed communicating hydrocephalus. Impression: Transient ischemic attack Intracranial vascular stenosis Patent foramen ovale Fibromuscular dysplasia Hypertension Hyperlipidemia Diabetes mellitus History of non-small cell lung cancer status post lobectomy Suggestion: Aspirin 81 mg daily and Plavix 75 mg daily for 21 days followed by monotherapy with Plavix 75 mg daily for stroke prevention. Continue Crestor 10 mg nightly and low-cholesterol diet. Low-sodium diet and continue management of hypertension with a goal blood pressure of less than 140/90. Continue management of diabetes. Low carbohydrate diet. Monitor blood sugar regularly with a goal hemoglobin A1c of less than 7. Continue BiPAP for obstructive sleep apnea. Regular exercise and institute fall precautions. Analgesic as needed. Antiemetic as needed. Monitor for any recurrent attacks of vertigo and may prescribe meclizine as needed. Monitor for any recurrent TIA or stroke symptoms. No further suggestion at this time. Will sign off. Please call if needed. Follow-up with outpatient neurology in 2 to 3 weeks. I have personally reviewed/visualized the patient's images, as documented above. I have personally reviewed the patient's labs, procedure and ancillary testing as listed above. Impression, plan and suggestions was discussed with the patient/family/caregi vers. Questions and concerns were discussed and addressed. This note was created in part using a speech-recognition software. Timed code: 82 minutes I personally spent the above time on this encounter today which includes time preparation to see the patient (reviewing previous history, notes, exam, test, procedure, and medications); Obtaining history from the patient/family/caregi vers; performing face to face evaluation and examination; ordering medications, tests, or procedures; referring and communicating with other healthcare professionals; update, counseling and education of the patient/family/caregi sarah; independently interpreting results (Tests, labs, imaging) and communicating results to the patient/family/caregi sarah; coordination of care; documenting clinical information in the electronic and other health records. Subjective (CC/HPI): Patient is a 80-year-old female who was seen in the ER because of sudden onset of sharp pain on the left frontal area accompanied by vertiginous sensation and loss of consciousness for few seconds. She awakens on the floor but her cannot get her up and he called 911. On the floor, patient still felt vertiginous and nauseous especially if she begins to talk. She has no dysarthria, aphasia, focal limb weakness, numbn (more content not included)... Normal [facility] CT Head WO contraston 2024 1. No acute findings. No hemorrhage. No masses. 2. Moderate brain atrophy. Moderate chronic microvascular changes. DMG/pji Workstation ID: [id number] [employer] EXAMINATION: CT HEAD WITHOUT CONTRAST (STROKE) HISTORY: ORDERING SYSTEM PROVIDED HISTORY: Stroke Protocol. TECHNOLOGIST PROVIDED HISTORY: Illness/Other. Reason for exam: Stroke alert level 1. Encounter Type: Initial. COMPARISON: None. TECHNIQUE: CT examination of the head without IV contrast. Dose reduction techniques were achieved by using automated exposure control and/or adjustment of mA and/or kV according to patient size and/or use of iterative reconstruction technique. FINDINGS: The paranasal sinuses are clear. Mastoid air cells are clear. No skull lesion. Nasopharynx normal. Athlete Marketing Agent spaces normal. Prior cataract surgery. Moderate brain atrophy. No hydrocephalus. No shift of midline. Moderate chronic microvascular changes in the cerebral white matter. No acute intracranial hemorrhage. No intracranial masses. French matter and white matter differentiation is intact. [employer] Eyad Vicente MD - 05/29/2025 EXAMINATION: CT HEAD WITHOUT CONTRAST (STROKE) HISTORY: ORDERING SYSTEM PROVIDED HISTORY: Stroke Protocol. TECHNOLOGIST PROVIDED HISTORY: Illness/Other. Reason for exam: Stroke alert level 1. Encounter Type: Initial. COMPARISON: None. TECHNIQUE: CT examination of the head without IV contrast. Dose reduction techniques were achieved by using automated exposure control and/or adjustment of mA and/or kV according to patient size and/or use of iterative reconstruction technique. FINDINGS: The paranasal sinuses are clear. Mastoid air cells are clear. No skull lesion. Nasopharynx normal. Athlete Marketing Agent spaces normal. Prior cataract surgery. Moderate brain atrophy. No hydrocephalus. No shift of midline. Moderate chronic microvascular changes in the cerebral white matter. No acute intracranial hemorrhage. No intracranial masses. French matter and white matter differentiation is intact. IMPRESSION: 1. No acute findings. No hemorrhage. No masses. 2. Moderate brain atrophy. Moderate chronic microvascular changes. DMG/pji Workstation ID: [id number] [facility] CT Head WO contrastOrdered B y: Eyad Vicente on 05-29-2025 [facility] Work Phone: ECHOCARDIOGRAM COMPLETEon ECHOCARDIOGRAM COMPLETE Patient Info Name: LIDIA ORTIZ Age: 80 years : 1945 Gender: Female Ht: 175 cm Wt: 78 kg BSA: 1.95 m2 HR: 85 bpm BP: 111 / 54 mmHg Technical Quality: Good Exam Date: 05/29/2025 12:25 PM Patient Status: Inpatient [employer] Erector: [place], Blanca, ROSENDO Exam Type: ECHOCARDIOGRAM COMPLETE Study Info Indications - Stroke/TIA I67.9 - Cerebrovascular disease, unspecified Referring Physician: TIMOTHY Reis; [id number] BMI: 25.25 kg/m2 Summary 1. Left ventricular systolic function is hyperdynamic with an ejection fraction by Biplane Method of Discs of 84 %. 2. The left ventricular diastolic function is grade I diastolic dysfunction, consistent with low or normal atrial pressures. 3. Longitudinal strain of the left ventricle is normal, -22 %. 4. Right ventricular size and systolic function are normal. 5. There are elevated transmitral gradients, mean gradient 6mmHg at heart rate 83bpm. MVA 3.2cm2 by PHT. 6. There is pulmonary hypertension, estimated right ventricle systolic pressure is 40 mmHg. 7. Patent foramen ovale (PFO) with left to right shunting by color Doppler. History/Risk Factors Hypertension: Yes Diabetes Mellitus: Type II Cerebrovascular Disease: Yes History/Risk Factors NON-SMALL CELL LUNG CA WITH CHEMO. Procedure(s): Complete two-dimensional, color flow and Doppler transthoracic echocardiogram is performed. Left Ventricle Longitudinal strain of the left ventricle is normal, -22 %. Left ventricular chamber dimension is normal. Left ventricular systolic function is hyperdynamic with an ejection fraction by Biplane Method of Discs of 84 %. Normal left ventricular mass. Left ventricular segmental wall motion is normal. The left ventricular diastolic function is grade I diastolic dysfunction, consistent with low or normal atrial pressures. Longitudinal strain of the left ventricle is normal, -22 %. Right Ventricle Right ventricular size and systolic function are normal. Left Atria Left atrial chamber is moderately enlarged with a left atrial volume index of 48 ml/m2 by BP MOD. Right Atria Right atrial chamber dimension is normal. Atrial Septum Patent foramen ovale (PFO) with left to right shunting by color Doppler. Aortic Valve The aortic valve is trileaflet. There is no aortic valve sclerosis. There is no aortic valve stenosis. There is no aortic valve regurgitation. Pulmonic Valve The pulmonic valve is normal. There is no pulmonic valve stenosis. There is trace pulmonic regurgitation. Mitral Valve Moderate posterior mitral annular calcification. The mitral valve has thickened leaflets. There are elevated transmitral gradients, mean gradient 6mmHg at heart rate 83bpm. MVA 3.2cm2 by PHT. There is no mitral valve regurgitation. Tricuspid Valve The tricuspid valve leaflets are normal. There is no significant tricuspid valve stenosis. There is trace tricuspid valve regurgitation. There is pulmonary hypertension, estimated right ventricle systolic pressure is 40 mmHg. Pericardium/Pleural There is no pericardial effusion. Inferior Vena Cava Normal inferior vena cava with >50% collapse upon inspiration consistent with normal right atrial pressure. Aorta The aortic measurements are indexed to age and body surface area. The aortic root is normal measuring 2.9 cm with an index of 1.5 cm/m2. The proximal ascending aorta is normal measuring 2.6 cm with an index of 1.3 cm/m2. Wall Motion Scoring Wall Motion Scoring Index: 1.00 Left Ventricular Outflow Tract ------- Name Value Normal ------- LVOT 2D ------- LVOT Diameter 2.0 cm LVOT Doppler ------- LVOT Peak Velocity 1.5 m/s LVOT Peak Gradient 9 mmHg LVOT Mean Gradient 5 mmHg LVOT VTI 35 cm LVOT VTI/AV VTI Ratio 0.7 LVOT Stroke Volume 108 ml LVOT Stroke Index 55.29 ml/m2 Pulmonic Valve ------- Name Value Normal ------- RVOT Doppler ------- RVOT Peak Velocity 95 cm/s RVOT Peak Gradient 4 mmHg RVOT Mean Gradient 2 mmHg RVOT VTI 18 cm PV Doppler ------- PV Peak Velocity 1.31 m/s PV Peak Gradient 7 mmHg PV Mean Gradient 3 mmHg PV VTI 23 cm Mitral Valve ------- Name Value Normal ------- MV Doppler --- (more content not included)... Normal [facility] Echocardiogram complete with out bubble (TTE)Ordered By: Radha Guerra on 05-29-2025 Aortic valve area 2.58558 cm [facility] Work Phone: AV mean gradient 11.6901 mmHg [facility] Work Phone: AV peak gradient 21.3436 mmHg [facility] Work Phone: EF [phone] % [facility] Work Phone: [facility] Work Phone: Echocardiogram complete with out bubble (TTE)on 05-29-2025 Patient Info Name: LIDIA ORTIZ Age: 80 years : 1945 Gender: Female Ht: 175 cm Wt: 78 kg BSA: 1.95 m2 HR: 85 bpm BP: 111 / 54 mmHg Technical Quality: Good Exam Date: 05/29/2025 12:25 PM Patient Status: Inpatient [employer] Erector: Blanca Conrad RCDS Exam Type: ECHOCARDIOGRAM COMPLETE Study Info Indications - Stroke/TIA I67.9 - Cerebrovascular disease, unspecified Referring Physician: [id number] Quispe; [id number] BMI: 25.25 kg/m2 Summary 1. Left ventricular systolic function is hyperdynamic with an ejection fraction by Biplane Method of Discs of 84 %. 2. The left ventricular diastolic function is grade I diastolic dysfunction, consistent with low or normal atrial pressures. 3. Longitudinal strain of the left ventricle is normal, -22 %. 4. Right ventricular size and systolic function are normal. 5. There are elevated transmitral gradients, mean gradient 6mmHg at heart rate 83bpm. MVA 3.2cm2 by PHT. 6. There is pulmonary hypertension, estimated right ventricle systolic pressure is 40 mmHg. 7. Patent foramen ovale (PFO) with left to right shunting by color Doppler. History/Risk Factors Hypertension: Yes Diabetes Mellitus: Type II Cerebrovascular Disease: Yes History/Risk Factors NON-SMALL CELL LUNG CA WITH CHEMO. Procedure(s): Complete two-dimensional, color flow and Doppler transthoracic echocardiogram is performed. Left Ventricle Longitudinal strain of the left ventricle is normal, -22 %. Left ventricular chamber dimension is normal. Left ventricular systolic function is hyperdynamic with an ejection fraction by Biplane Method of Discs of 84 %. Normal left ventricular mass. Left ventricular segmental wall motion is normal. The left ventricular diastolic function is grade I diastolic dysfunction, consistent with low or normal atrial pressures. Longitudinal strain of the left ventricle is normal, -22 %. Right Ventricle Right ventricular size and systolic function are normal. Left Atria Left atrial chamber is moderately enlarged with a left atrial volume index of 48 ml/m2 by BP MOD. Right Atria Right atrial chamber dimension is normal. Atrial Septum Patent foramen ovale (PFO) with left to right shunting by color Doppler. Aortic Valve The aortic valve is trileaflet. There is no aortic valve sclerosis. There is no aortic valve stenosis. There is no aortic valve regurgitation. Pulmonic Valve The pulmonic valve is normal. There is no pulmonic valve stenosis. There is trace pulmonic regurgitation. Mitral Valve Moderate posterior mitral annular calcification. The mitral valve has thickened leaflets. There are elevated transmitral gradients, mean gradient 6mmHg at heart rate 83bpm. MVA 3.2cm2 by PHT. There is no mitral valve regurgitation. Tricuspid Valve The tricuspid valve leaflets are normal. There is no significant tricuspid valve stenosis. There is trace tricuspid valve regurgitation. There is pulmonary hypertension, estimated right ventricle systolic pressure is 40 mmHg. Pericardium/Pleural There is no pericardial effusion. Inferior Vena Cava Normal inferior vena cava with >50% collapse upon inspiration consistent with normal right atrial pressure. Aorta The aortic measurements are indexed to age and body surface area. The aortic root is normal measuring 2.9 cm with an index of 1.5 cm/m2. The proximal ascending aorta is normal measuring 2.6 cm with an index of 1.3 cm/m2. Wall Motion Scoring Wall Motion Scoring Index: 1.00 Left Ventricular Outflow Tract ------- Name Value Normal ------- LVOT 2D ------- LVOT Diameter 2.0 cm LVOT Doppler ------- LVOT Peak Velocity 1.5 m/s LVOT Peak Gradient 9 mmHg LVOT Mean Gradient 5 mmHg LVOT VTI 35 cm LVOT VTI/AV VTI Ratio 0.7 LVOT Stroke Volume 108 ml LVOT Stroke Index 55.29 ml/m2 Pulmonic Valve ------- Name Value Normal ------- RVOT Doppler ------- RVOT Peak Velocity (more content not included)... [facility], Jessica Mccabe D - 05/29/2025 Patient Info Name: LIDIA ORTIZ Age: 80 years : 1945 Gender: Female Ht: 175 cm Wt: 78 kg BSA: 1.95 m2 HR: 85 bpm BP: 111 / 54 mmHg Technical Quality: Good Exam Date: 05/29/2025 12:25 PM Patient Status: Inpatient [place] Erector: Blanca Conrad RCDS Exam Type: ECHOCARDIOGRAM COMPLETE Study Info Indications - Stroke/TIA I67.9 - Cerebrovascular disease, unspecified Referring Physician: TIMOTHY Reis; [id number] BMI: 25.25 kg/m2 Summary 1. Left ventricular systolic function is hyperdynamic with an ejection fraction by Biplane Method of Discs of 84 %. 2. The left ventricular diastolic function is grade I diastolic dysfunction, consistent with low or normal atrial pressures. 3. Longitudinal strain of the left ventricle is normal, -22 %. 4. Right ventricular size and systolic function are normal. 5. There are elevated transmitral gradients, mean gradient 6mmHg at heart rate 83bpm. MVA 3.2cm2 by PHT. 6. There is pulmonary hypertension, estimated right ventricle systolic pressure is 40 mmHg. 7. Patent foramen ovale (PFO) with left to right shunting by color Doppler. History/Risk Factors Hypertension: Yes Diabetes Mellitus: Type II Cerebrovascular Disease: Yes History/Risk Factors NON-SMALL CELL LUNG CA WITH CHEMO. Procedure(s): Complete two-dimensional, color flow and Doppler transthoracic echocardiogram is performed. Left Ventricle Longitudinal strain of the left ventricle is normal, -22 %. Left ventricular chamber dimension is normal. Left ventricular systolic function is hyperdynamic with an ejection fraction by Biplane Method of Discs of 84 %. Normal left ventricular mass. Left ventricular segmental wall motion is normal. The left ventricular diastolic function is grade I diastolic dysfunction, consistent with low or normal atrial pressures. Longitudinal strain of the left ventricle is normal, -22 %. Right Ventricle Right ventricular size and systolic function are normal. Left Atria Left atrial chamber is moderately enlarged with a left atrial volume index of 48 ml/m2 by BP MOD. Right Atria Right atrial chamber dimension is normal. Atrial Septum Patent foramen ovale (PFO) with left to right shunting by color Doppler. Aortic Valve The aortic valve is trileaflet. There is no aortic valve sclerosis. There is no aortic valve stenosis. There is no aortic valve regurgitation. Pulmonic Valve The pulmonic valve is normal. There is no pulmonic valve stenosis. There is trace pulmonic regurgitation. Mitral Valve Moderate posterior mitral annular calcification. The mitral valve has thickened leaflets. There are elevated transmitral gradients, mean gradient 6mmHg at heart rate 83bpm. MVA 3.2cm2 by PHT. There is no mitral valve regurgitation. Tricuspid Valve The tricuspid valve leaflets are normal. There is no significant tricuspid valve stenosis. There is trace tricuspid valve regurgitation. There is pulmonary hypertension, estimated right ventricle systolic pressure is 40 mmHg. Pericardium/Pleural There is no pericardial effusion. Inferior Vena Cava Normal inferior vena cava with >50% collapse upon inspiration consistent with normal right atrial pressure. Aorta The aortic measurements are indexed to age and body surface area. The aortic root is normal measuring 2.9 cm with an index of 1.5 cm/m2. The proximal ascending aorta is normal measuring 2.6 cm with an index of 1.3 cm/m2. Wall Motion Scoring Wall Motion Scoring Index: 1.00 Left Ventricular Outflow Tract ------- Name Value Normal ------- LVOT 2D ------- LVOT Diameter 2.0 cm LVOT Doppler ------- LVOT Peak Velocity 1.5 m/s LVOT Peak Gradient 9 mmHg LVOT Mean Gradient 5 mmHg LVOT VTI 35 cm LVOT VTI/AV VTI Ratio 0.7 LVOT Stroke Volume 108 ml LVOT Stroke Index 55.29 ml/m2 Pulmonic Valve ------- Name Value Normal ------- RVOT Doppler ------- RVOT Peak Velocity 95 cm/s RVOT Peak Gradient 4 mmHg RVOT Mean Gradient 2 mmHg RVOT VTI 18 cm PV Doppler ------- PV Peak Velocity 1.31 m/s PV Peak Gradient 7 mmHg PV Mean Gradient 3 mmHg PV VTI 23 cm Mitral Valve ------- Name Value Normal (more content not included)... [facility] Glucose (Bld) [Mass/Vol]on 0 05-29-2025 Glucose [Mass/Vol] 205 mg/dL High 65 - 99 mg/dL [facility] Interpretation and review of laboratory results Abnormal [facility] Glucose [Mass/Vol] 151 mg/dL High 65 - 99 mg/dL [facility] Interpretation and review of laboratory results Abnormal [facility] Glucose [Mass/Vol] 240 mg/dL High 65 - 99 mg/dL [facility] Interpretation and review of laboratory results Abnormal [facility] Glucose [Mass/Vol] 133 mg/dL High 65 - 99 mg/dL [facility] Interpretation and review of laboratory results Abnormal [facility] MAGNESIUM LEVELon 05-29-2025 Magnesium [Mass/Vol] 2.0 mg/dL Normal 1.6-2.4 [facility] Comment on above: Performed By: #### [id number] #### [place] [address] [address] [place] [address] Cyrus Melgar M.D. [id number] MR Brain WO contraston 05-29 No acute ischemia. Chronic intracranial change described above. Workstation ID: [id number] [employer] EXAMINATION: MR BRAIN WITHOUT CONTRAST HISTORY: Stroke, follow up Repeat Injury/Trauma or Illness?:Illness/Othe r How long have you had these symptoms (acute/chronic)?:Acut e Reason for exam?:left sided headache starting yesterday with dizziness and syncopal episode: hx of lung cancer and hx of melanoma: Type of Exam?:Unknown R42 Dizziness COMPARISON: CT head 05/28/2025 TECHNIQUE: Multiplanar multisequence MR imaging of the brain was performed without contrast. FINDINGS: Calvarium/skull base: No focal marrow replacing lesion suggestive of neoplasm. Orbits: Bilateral tribe ocular lens replacements. Paranasal sinuses: Imaged portions clear. Brain: No restricted diffusion. Patchy T2 FLAIR signal hyperintensities are present involving the supratentorial white matter and central pontine white matter which while nonspecific most commonly relates to sequela of small vessel disease. Tiny remote embedded developer infarcts involving the bilateral cerebellum inferiorly. No mass effect, hemorrhage, or hydrocephalus. Grossly normal flow-related signal in the major intracranial arteries and dural sinuses. [employer] Veda Slater, DO - 05/29/2025 EXAMINATION: MR BRAIN WITHOUT CONTRAST HISTORY: Stroke, follow up Repeat Injury/Trauma or Illness?:Illness/Othe r How long have you had these symptoms (acute/chronic)?:Acut e Reason for exam?:left sided headache starting yesterday with dizziness and syncopal episode: hx of lung cancer and hx of melanoma: Type of Exam?:Unknown R42 Dizziness COMPARISON: CT head 05/28/2025 TECHNIQUE: Multiplanar multisequence MR imaging of the brain was performed without contrast. FINDINGS: Calvarium/skull base: No focal marrow replacing lesion suggestive of neoplasm. Orbits: Bilateral tribe ocular lens replacements. Paranasal sinuses: Imaged portions clear. Brain: No restricted diffusion. Patchy T2 FLAIR signal hyperintensities are present involving the supratentorial white matter and central pontine white matter which while nonspecific most commonly relates to sequela of small vessel disease. Tiny remote embedded developer infarcts involving the bilateral cerebellum inferiorly. No mass effect, hemorrhage, or hydrocephalus. Grossly normal flow-related signal in the major intracranial arteries and dural sinuses. IMPRESSION: No acute ischemia. Chronic intracranial change described above. Workstation ID: [id number] [facility] Radiology Study observation (narrative) [facility] MR Brain WO contrastOrdered By: Veda Slater on 05-29-2025 [facility] Work Phone: Magnesiumon 05-29-2025 Magnesium [Mass/Vol] 2 mg/dL 1.6 - 2 .4 mg/dL [facility] Magnesium [Mass/Vol]on 05-29 Interpretation and review of laboratory results Normal [facility] No Panel InformationOrdered By: Dory Cheney on 05-29-2025 Interpretation and review of laboratory results Abnormal [facility] PHOSPHORUSon 05-29-2025 Phosphate [Mass/Vol] 4.6 mg/dL High 2.8-4.1 [facility] Comment on above: Performed By: #### [id number] #### [facility] [address] [place] [address] Cyrus Melgar M.D. [id number] POC GLUCOSE - [facility] 025 Glucose [Mass/Vol] 205 mg/dL High [address] [place] [address] Comment on above: Performed By: #### [id number] #### [facility] [address] [place] [id number] Cyrus Melgar M.D. [id number] Glucose [Mass/Vol] 151 mg/dL [address] Comment on above: Performed By: #### [id number] #### [facility] [address] [place] [id number] Cyrus Melgar M.D. [id number] Glucose [Mass/Vol] 240 mg/dL [address] Comment on above: Performed By: #### 4 [id number] #### [facility] [address] [place] [address] Cyrus Melgar M.D. [id number] Glucose [Mass/Vol] 133 mg/dL High 65-99 [facility] Comment on above: Performed By: #### [id number] #### [facility] [address] [place], [place] [address] Cyrus Melgar M.D. [id number] Phosphoruson 05-29-2025 Phosphate [Mass/Vol] 4.6 mg/dL High 2.8 - 4 .1 mg/dL [facility] US DOPPLER CAROTIDon 025 US DOPPLER CAROTID Patient Info Name: LIDIA ORTIZ Age: 80 years : 1945 Gender: Female Exam Date: 05/29/2025 11:48 AM Patient Status: Inpatient Data Processing Clerk: Qing Garcia RVT Referring Physician: TIMOTHY Reis; Indications - Follow-up stroke, vertigo dizziness R42 - Dizziness and giddiness Procedure Description 27581 Duplex examination using B-mode, color and spectral Doppler of extracranial arteries; complete bilateral study. NASCET criteria is used when performing imaging correlation with carotid duplex interpretation. Conclusions * Right. * Less than 50% stenosis in the right internal carotid artery. * Right vertebral artery is patent with antegrade flow. * Elevated velocity suggestive of stenosis in the right vertebral artery. * No evidence of hemodynamically significant stenosis in the right common carotid, subclavian and external carotid arteries. * Left. * Less than 50% stenosis in the left internal carotid artery. * Left vertebral artery is patent with antegrade flow. * Elevated velocity suggestive of stenosis in the left vertebral artery. * No evidence of hemodynamically significant stenosis in the left common carotid, external carotid and subclavian arteries. Recommendations * Based upon this study, Advanced Carotid Imaging does not appear to be warranted. Clinical correlation advised. Measurements ------- Name Value ------- Right PSV ------- Right Prox CCA PSV 75 cm/s Right Mid CCA PSV 87 cm/s Right Distal CCA PSV 81 cm/s Right Prox ICA PSV 68 cm/s Right Mid ICA PSV 68 cm/s Right Distal ICA PSV 67 cm/s Right ECA PSV 57 cm/s Right Vert PSV 118 cm/s Right Prox SCA PSV 111 cm/s Rt ICA/CCA Ratio 0.8 Measurements ------- Name Value ------- Right EDV ------- Right Prox CCA EDV 11 cm/s Right Mid CCA EDV 16 cm/s Right Distal CCA EDV 16 cm/s Right Prox ICA EDV 18 cm/s Right Mid ICA EDV 21 cm/s Right Distal ICA EDV 22 cm/s Right ECA EDV 0 cm/s Right Vert EDV 12 cm/s Right Prox SCA EDV 0 cm/s Measurements ------- Name Value ------- Left PSV ------- Left Prox CCA PSV 97 cm/s Left Mid CCA PSV 101 cm/s Left Distal CCA PSV 79 cm/s Left Prox ICA PSV 95 cm/s Left Mid ICA PSV 83 cm/s Left Distal ICA PSV 72 cm/s Left ECA PSV 80 cm/s Left Vert PSV 128 cm/s Left Prox SCA PSV 172 cm/s Lt ICA/CCA Ratio 1.2 Measurements ------- Name Value ------- Left EDV ------- Left Prox CCA EDV 17 cm/s Left Mid CCA EDV 20 cm/s Left Distal CCA EDV 20 cm/s Left Prox ICA EDV 18 cm/s Left Mid ICA EDV 26 cm/s Left Distal ICA EDV 24 cm/s Left ECA EDV 11 cm/s Left Vert EDV 18 cm/s Left Prox SCA EDV 2 cm/s Right Findings * No plaque noted in the right common carotid artery. * Heterogeneous plaque noted in the mid to distal right common carotid artery. * Heterogeneous plaque noted in the right internal carotid artery. * Heterogeneous plaque noted in the right external carotid artery. Left Findings * No plaque noted in the left subclavian artery. * Heterogeneous plaque noted in the mid to distal left internal carotid artery. * Calcific plaque noted in the left external carotid artery. * Calcific plaque noted in the left common carotid artery. Risk Factors Patient has a history of hypertension, malignancy and stroke. . Report Signatures Finalized by JOSEPH Vela DO on 05/29/2025 12:46 PM [facility] Ultrasound doppler carotidon 05-29-2025 Patient Info Name: LIDIA ORTIZ Age: 80 years : 1945 Gender: Female Exam Date: 05/29/2025 11:48 AM Patient Status: Inpatient Data Processing Clerk: Qing Garcia RVT Referring Physician: TIMOTHY Reis; Indications - Follow-up stroke, vertigo dizziness R42 - Dizziness and giddiness Procedure Description 60296 Duplex examination using B-mode, color and spectral Doppler of extracranial arteries; complete bilateral study. NASCET criteria is used when performing imaging correlation with carotid duplex interpretation. Conclusions * Right. * Less than 50% stenosis in the right internal carotid artery. * Right vertebral artery is patent with antegrade flow. * Elevated velocity suggestive of stenosis in the right vertebral artery. * No evidence of hemodynamically significant stenosis in the right common carotid, subclavian and external carotid arteries. * Left. * Less than 50% stenosis in the left internal carotid artery. * Left vertebral artery is patent with antegrade flow. * Elevated velocity suggestive of stenosis in the left vertebral artery. * No evidence of hemodynamically significant stenosis in the left common carotid, external carotid and subclavian arteries. Recommendations * Based upon this study, Advanced Carotid Imaging does not appear to be warranted. Clinical correlation advised. Measurements ------- Name Value ------- Right PSV ------- Right Prox CCA PSV 75 cm/s Right Mid CCA PSV 87 cm/s Right Distal CCA PSV 81 cm/s Right Prox ICA PSV 68 cm/s Right Mid ICA PSV 68 cm/s Right Distal ICA PSV 67 cm/s Right ECA PSV 57 cm/s Right Vert PSV 118 cm/s Right Prox SCA PSV 111 cm/s Rt ICA/CCA Ratio 0.8 Measurements ------- Name Value ------- Right EDV ------- Right Prox CCA EDV 11 cm/s Right Mid CCA EDV 16 cm/s Right Distal CCA EDV 16 cm/s Right Prox ICA EDV 18 cm/s Right Mid ICA EDV 21 cm/s Right Distal ICA EDV 22 cm/s Right ECA EDV 0 cm/s Right Vert EDV 12 cm/s Right Prox SCA EDV 0 cm/s Measurements ------- Name Value ------- Left PSV ------- Left Prox CCA PSV 97 cm/s Left Mid CCA PSV 101 cm/s Left Distal CCA PSV 79 cm/s Left Prox ICA PSV 95 cm/s Left Mid ICA PSV 83 cm/s Left Distal ICA PSV 72 cm/s Left ECA PSV 80 cm/s Left Vert PSV 128 cm/s Left Prox SCA PSV 172 cm/s Lt ICA/CCA Ratio 1.2 Measurements ------- Name Value ------- Left EDV ------- Left Prox CCA EDV 17 cm/s Left Mid CCA EDV 20 cm/s Left Distal CCA EDV 20 cm/s Left Prox ICA EDV 18 cm/s Left Mid ICA EDV 26 cm/s Left Distal ICA EDV 24 cm/s Left ECA EDV 11 cm/s Left Vert EDV 18 cm/s Left Prox SCA EDV 2 cm/s Right Findings * No plaque noted in the right common carotid artery. * (more content not included)... [employer] Daily Padilla III, DO - 05/29/2025 Patient Info Name: LIDIA ORTIZ Age: 80 years : 1945 Gender: Female Exam Date: 05/29/2025 11:48 AM Patient Status: Inpatient Data Processing Clerk: Qing Garcia RVT Referring Physician: TIMOTHY Reis; Indications - Follow-up stroke, vertigo dizziness R42 - Dizziness and giddiness Procedure Description 27795 Duplex examination using B-mode, color and spectral Doppler of extracranial arteries; complete bilateral study. NASCET criteria is used when performing imaging correlation with carotid duplex interpretation. Conclusions * Right. * Less than 50% stenosis in the right internal carotid artery. * Right vertebral artery is patent with antegrade flow. * Elevated velocity suggestive of stenosis in the right vertebral artery. * No evidence of hemodynamically significant stenosis in the right common carotid, subclavian and external carotid arteries. * Left. * Less than 50% stenosis in the left internal carotid artery. * Left vertebral artery is patent with antegrade flow. * Elevated velocity suggestive of stenosis in the left vertebral artery. * No evidence of hemodynamically significant stenosis in the left common carotid, external carotid and subclavian arteries. Recommendations * Based upon this study, Advanced Carotid Imaging does not appear to be warranted. Clinical correlation advised. Measurements ------- Name Value ------- Right PSV ------- Right Prox CCA PSV 75 cm/s Right Mid CCA PSV 87 cm/s Right Distal CCA PSV 81 cm/s Right Prox ICA PSV 68 cm/s Right Mid ICA PSV 68 cm/s Right Distal ICA PSV 67 cm/s Right ECA PSV 57 cm/s Right Vert PSV 118 cm/s Right Prox SCA PSV 111 cm/s Rt ICA/CCA Ratio 0.8 Measurements ------- Name Value ------- Right EDV ------- Right Prox CCA EDV 11 cm/s Right Mid CCA EDV 16 cm/s Right Distal CCA EDV 16 cm/s Right Prox ICA EDV 18 cm/s Right Mid ICA EDV 21 cm/s Right Distal ICA EDV 22 cm/s Right ECA EDV 0 cm/s Right Vert EDV 12 cm/s Right Prox SCA EDV 0 cm/s Measurements ------- Name Value ------- Left PSV ------- Left Prox CCA PSV 97 cm/s Left Mid CCA PSV 101 cm/s Left Distal CCA PSV 79 cm/s Left Prox ICA PSV 95 cm/s Left Mid ICA PSV 83 cm/s Left Distal ICA PSV 72 cm/s Left ECA PSV 80 cm/s Left Vert PSV 128 cm/s Left Prox SCA PSV 172 cm/s Lt ICA/CCA Ratio 1.2 Measurements ------- Name Value ------- Left EDV ------- Left Prox CCA EDV 17 cm/s Left Mid CCA EDV 20 cm/s Left Distal CCA EDV 20 cm/s Left Prox ICA EDV 18 cm/s Left Mid ICA EDV 26 cm/s Left Distal ICA EDV 24 cm/s Left ECA EDV 11 cm/s Left Vert EDV 18 cm/s Left Prox SCA EDV 2 cm/s Right Findings * No plaque noted in the right common carotid artery. * Heterogeneous plaque noted in the mid to distal right common carotid artery. * Heterogeneous plaque noted in the right internal carotid artery. * Heterogeneous plaque noted in the right external carotid artery. Left Findings * No plaque noted in the left subclavian artery. * Heterogeneous plaque noted in the mid to distal left internal carotid artery. * Calcific plaque noted in the left external carotid artery. * Calcific plaque noted in the left common carotid artery. Risk Factors Patient has a history of hypertension, malignancy and stroke. . Report Signatures Finalized by JOSEPH Vela DO on 05/29/2025 12:46 PM [facility] ABORH VERIFICATIONon 025 ABO and Rh group Nom (Bld) Blood group A Rh(D) negative [facility] ABO and Rh group Nom (Bld) ABO/Rh Verification [facility] Comment on above: Result Comment: Anitha ent's ABO/Rh is verified. ABORH Verificationon 025 ABO and Rh group Nom (Bld) Blood group A Rh(D) negative [facility] ABO and Rh group Nom (Bld) ABO/Rh Verification [facility] Comment on above: Patient's ABO/Rh is verified. [facility] ANTIBODY IDENTIFICATION-Don 05-28-2025 ANTIBODY IDENTIFICATION-D ANTIBODY IDENTIFICATION: Anti-D Anti-D is a clinically significant antibody belonging to the Rh system. It can cause hemolytic transfusion reactions and hemolytic disease of the . The D antigen is present in 85% of the population. In the event that blood is required, additional time will be necessary to obtain compatible units. Normal [facility] APTTOrdered By: Mike flores on 05-28-2025 aPTT Coag (Bld) [Time] 21 s [facility] APTTon 05-28-2025 aPTT Coag (Bld) [Time] 21 s Low 23-34 [facility] Comment on above: Order Comment: Thera peutic range for APTT's is 68 - 104 seconds Performed By: #### [id number] #### [facility] [address] [place] [address] Cyrus Melgar M.D. [id number] Antibody Identificationon Blood group antibodies identified Nom Anti-D [facility] Comment on above: Anti-D is a clinical ly significant antibody belonging to the Rh system. It can cause hemolytic transfusion reactions and hemolytic disease of the . The D antigen is present in 85% of the population. In the event that blood is required, additional time will be necessary to obtain compatible units. [facility] Blood type and Indirect anti body screen panel (Bld)on 05-28-2025 ABO and Rh group Nom (Bld) Blood group A Rh(D) negative [facility] Blood group antibody screen Ql Positive [facility] Specimen Expires 05/31/2025 23:59 EST [facility] CALCIUM, IONIZEDon CALCIUM IONIZED 4.8 mg/dL Normal 4.5-5.3 [facility] Comment on above: Performed By: #### [id number] #### [facility] [address] [place], [place] [address] Cyrus Melgar M.D. [id number] CBC Auto Differentialon 05-19 Basophils (Bld) [#/Vol] 0.05 10*3/uL [facility] Basophils/100 WBC (Bld) 0.7 % [facility] Eosinophils (Bld) [#/Vol] 0.02 10*3/uL [facility] Eosinophils/100 WBC (Bld) 0.3 % [facility] Erythrocyte distribution width (RBC) [Entitic vol] 13.2 % 11.6 - 14.8 % [facility] Hematocrit (Bld) [Volume fraction] 40.8 % 36.0 - 46.0 % [facility] Hemoglobin (Bld) [Mass/Vol] 13.1 g/dL 12.0 - 16.0 g/dL [facility] Immature granulocytes (Bld) [#/Vol] 0.02 10*3/uL [facility] Immature granulocytes/100 WBC (Bld) 0.3 % [facility] Comment on above: The IG parameter is the percentage of metamyelocytes, myelocytes and promyelocytes. An immature granulocyte count (IG) of 1% or more suggests the possibility of infection, an IG count of 3% is very likely related to an infection. Lymphocytes (Bld) [#/Vol] 2.57 10*3/uL [facility] Lymphocytes/100 WBC (Bld) 33.7 % [facility] MCH (RBC) [Entitic mass] 30 pg 26.0 - 34.0 pg [facility] MCHC (RBC) [Mass/Vol] 32.1 g/dL 31.0 - 37.0 g/dL [facility] MCV (RBC) [Entitic vol] 93.6 fL 80.0 - 100.0 fL [facility] Monocytes (Bld) [#/Vol] 0.45 10*3/uL [facility] Monocytes/100 WBC (Bld) 5.9 % [facility] Neutrophils (Bld) [#/Vol] 4.51 10*3/uL [facility] Neutrophils/100 WBC (Bld) 59.1 % [facility] Nucleated RBC (Bld) [#/Vol] 0 10*3/uL [facility] Nucleated RBC/100 WBC (Bld) [Ratio] 0 % [facility] Platelet mean volume (Bld) [Entitic vol] 9.8 fL 9.4 - 12.4 fL [facility] Platelets (Bld) [#/Vol] 210 10*3/uL [facility] RBC (Bld) [#/Vol] 4.36 10*6/uL [facility] WBC (Bld) [#/Vol] 7.62 10*3/uL [facility] CBC WITH AUTO DIFFERENTIALon 05-28-2025 AUTO NRBC 0.0 % Normal [facility] Comment on above: Performed By: #### [id number] #### LAB [address] [address] Cyrus Melgar M.D. [id number] AUTO NRBC ABS COUNT 0.00 K/mcL Normal 0.00-0.00 [facility] Comment on above: Performed By: #### 4 [id number] #### LAB [address] [address] Cyrus Melgar M.D. [id number] BASOPHILS ABSOLUTE COUNT 0.05 K/mcL Normal 0.00-0.30 [facility] Comment on above: Performed By: #### 4 [id number] #### LAB [address] [address] Cyrus Melgar M.D. [id number] Basophils/100 WBC (Bld) 0.7 % Normal [facility] Comment on above: Performed By: #### 4 [id number] #### LAB [address] [address] Cyrus Melgar M.D. [id number] Eosinophils (Bld) [#/Vol] 0.02 10*3/uL Normal 0.00-0.50 [facility] Comment on above: Performed By: #### 4 [id number] #### LAB [address] [address] Cyrus Melgar M.D. [id number] Eosinophils/100 WBC (Bld) 0.3 % [facility] Comment on above: Performed By: #### 4 8705 #### LAB [address] [address] Cyrus Melgar M.D. [id number] Erythrocyte distribution width (RBC) [Ratio] 13.2 % Normal 11.6-14.8 [facility] Comment on above: Performed By: #### 4 6073 #### LAB [address] [address] Cyrus Melgar M.D. [id number] Hematocrit (Bld) [Volume fraction] 40.8 % Normal 36.0-46.0 [facility] Comment on above: Performed By: #### 4 [id number] #### LAB [address] [address] Cyrus Melgar M.D. [id number] Hemoglobin (Bld) [Mass/Vol] 13.1 g/dL Normal 12.0-16.0 [facility] Comment on above: Performed By: #### 4 6993 #### LAB [address] [address] Cyrus Melgar M.D. [id number] IG ABSOLUTE 0.02 K/mcL Normal 0.00-0.30 [facility] Comment on above: Performed By: #### 4 [id number] #### LAB [address] [address] Cyrus Melgar M.D. [id number] IG PERCENT 0.30 % [facility] Comment on above: Result Comment: The IG parameter is the percentage of metamyelocytes, myelocytes and promyelocytes. An immature granulocyte count (IG) of 1% or more suggests the possibility of infection, an IG count of 3% is very likely related to an infection. Performed By: #### 4 6925 #### LAB [address] [address] Cyrus Melgar M.D. [id number] Lymphocytes (Bld) [#/Vol] 2.57 10*3/uL Normal 0.90-4.00 [facility] Comment on above: Performed By: #### 4 6988 #### LAB [address] [address] Cyrus Melgar M.D. [id number] Lymphocytes/100 WBC (Bld) 33.7 % [facility] Comment on above: Performed By: #### 4 6968 #### LAB [address] [address] Cyrus Melgar M.D. [id number] MCH (RBC) [Entitic mass] 30.0 pg Normal 26.0-34.0 [facility] Comment on above: Performed By: #### 4 9123 #### LAB [address] [address] Cyrus Melgar M.D. [id number] MCV (RBC) [Entitic vol] 93.6 fL Normal 80.0-100.0 [facility] Comment on above: Performed By: #### 4 3834 #### LAB [address] [address] Cyrus Melgar M.D. [id number] MEAN CORPUSCULAR HEMOGLOBIN CONC 32.1 g/dL Normal 31.0-37.0 [facility] Comment on above: Performed By: #### 4 8208 #### LAB [address] [address] Cyrus Melgar M.D. [id number] Monocytes (Bld) [#/Vol] 0.45 10*3/uL Normal 0.30-0.90 [facility] Comment on above: Performed By: #### 4 3562 #### LAB [address] [address] Cyrus Melgar M.D. [id number] Monocytes/100 WBC (Bld) 5.9 % Normal [facility] Comment on above: Performed By: #### 4 1294 #### LAB [address] [address] Cyrus Melgar M.D. [id number] NEUTROPHILS ABSOLUTE COUNT 4.51 K/mcL Normal 1.70-7.00 [facility] Comment on above: Performed By: #### 4 5007 #### LAB [address] [address] Cyrus Melgar M.D. [id number] Neutrophils/100 WBC (Bld) 59.1 % Normal [facility] Comment on above: Performed By: #### 4 0154 #### LAB [address] [address] Cyrus Melgar M.D. [id number] Platelet mean volume (Bld) [Entitic vol] 9.8 fL Normal 9.4-12.4 [facility] Comment on above: Performed By: #### 4 [id number] #### LAB [address] [address] Cyrus Melgar M.D. [id number] Platelets (Bld) [#/Vol] 210 10*3/uL Normal 150-400 [facility] Comment on above: Performed By: #### 4 6932 #### LAB [address] [address] Cyrus Melgar M.D. [id number] RBC (Bld) [#/Vol] 4.36 10*6/uL Normal 4.00-5.20 [facility] Comment on above: Performed By: #### 4 6932 #### LAB [address] [address] Cyrus Melgar M.D. [id number] WBC (Bld) [#/Vol] 7.62 10*3/uL Normal 4.50-11.00 [facility] Comment on above: Performed By: #### 4 [id number] #### LAB [address] [address] Cyrus Melgar M.D. [id number] COMPREHENSIVE METABOLIC PANE Marito 05-28-2025 Albumin [Mass/Vol] 4.2 g/dL Normal 3.2-5.2 [facility] Comment on above: Order Comment: [facility] has implemented the eGFR calculation approach that does not have a coefficient for race that conforms to the NKF-ASN Task Force Recommendations. Performed By: #### 4 [id number] #### LAB [address] [address] Cyrus Melgar M.D. [id number] ALP [Catalytic activity/Vol] 65 U/L Normal 40-150 [facility] Comment on above: Order Comment: [facility] has implemented the eGFR calculation approach that does not have a coefficient for race that conforms to the NKF-ASN Task Force Recommendations. Performed By: #### 4 6990 #### LAB [address] [address] Cyrus Melgar M.D. [id number] ALT [Catalytic activity/Vol] 18 U/L Normal 0-35 U/L [facility] Comment on above: Order Comment: [facility] has implemented the eGFR calculation approach that does not have a coefficient for race that conforms to the NKF-ASN Task Force Recommendations. Performed By: #### 4 6908 #### LAB [address] [address] Cyrus Melgar M.D. [id number] Anion gap [Moles/Vol] 15 mmol/L Normal 10-20 [facility] Comment on above: Order Comment: [facility] has implemented the eGFR calculation approach that does not have a coefficient for race that conforms to the NKF-ASN Task Force Recommendations. Performed By: #### 4 [id number] #### LAB [address] [address] Cyrus Melgar M.D. [id number] AST [Catalytic activity/Vol] 21 U/L Normal 0-35 U/L [facility] Comment on above: Order Comment: [facility] has implemented the eGFR calculation approach that does not have a coefficient for race that conforms to the NKF-ASN Task Force Recommendations. Performed By: #### 4 6930 #### LAB [address] [address] Cyrus Melgar M.D. [id number] Bilirubin [Mass/Vol] 0.3 mg/dL Normal 0.0-1.3 [facility] Comment on above: Order Comment: [facility] has implemented the eGFR calculation approach that does not have a coefficient for race that conforms to the NKF-ASN Task Force Recommendations. Performed By: #### 4 6915 #### LAB [address] [address] Cyrus Melgar M.D. [id number] Calcium [Mass/Vol] 9.4 mg/dL Normal 8.4-10.2 [facility] Comment on above: Order Comment: [facility] has implemented the eGFR calculation approach that does not have a coefficient for race that conforms to the NKF-ASN Task Force Recommendations. Performed By: #### 4 [id number] #### LAB [address] [place], [place] [address] Cyrus Melgar M.D. [id number] Chloride [Moles/Vol] 103 mmol/L Normal 98-108 [facility] Comment on above: Order Comment: [facility] has implemented the eGFR calculation approach that does not have a coefficient for race that conforms to the NKF-ASN Task Force Recommendations. Performed By: #### 4 6932 #### LAB [address] [address] Cyrus Melgar M.D. [id number] Creatinine [Mass/Vol] 0.94 mg/dL Normal 0.60-1.20 [facility] Comment on above: Order Comment: [facility] has implemented the eGFR calculation approach that does not have a coefficient for race that conforms to the NKF-ASN Task Force Recommendations. Performed By: #### 4 6932 #### LAB [address] [address] Cyrus Melgar M.D. [id number] EGFR 62 mL/min/1.73 m2 Normal >=60 [facility] Comment on above: Order Comment: [facility] has implemented the eGFR calculation approach that does not have a coefficient for race that conforms to the NKF-ASN Task Force Recommendations. Result Comment: Guera mated GFR was calculated using the 2020 CKD-EPI creatinine equation. Performed By: #### 4 [id number] #### LAB [address] [place], [place] [address] Cyrus Melgar M.D. [id number] Glucose [Mass/Vol] 146 mg/dL High 65-99 [facility] Comment on above: Order Comment: [facility] has implemented the eGFR calculation approach that does not have a coefficient for race that conforms to the NKF-ASN Task Force Recommendations. Performed By: #### 4 [id number] #### LAB [address] [id number] Cyrus Melgar M.D. [id number] HCO3 (Bld) [Moles/Vol] 26 mmol/L Normal 21-32 [facility] Comment on above: Order Comment: [facility] has implemented the eGFR calculation approach that does not have a coefficient for race that conforms to the NKF-ASN Task Force Recommendations. Performed By: #### 4 6932 #### LAB [address] [address] Cyrus Melgar M.D. [id number] Potassium [Moles/Vol] 4.3 mmol/L Normal 3.5-5.1 [facility] Comment on above: Order Comment: [facility] has implemented the eGFR calculation approach that does not have a coefficient for race that conforms to the NKF-ASN Task Force Recommendations. Performed By: #### 4 6932 #### [facility] LAB [address] [address] Cyrus Melgar M.D. [id number] Protein [Mass/Vol] 6.7 g/dL Normal 6.0-8.0 [facility] Comment on above: Order Comment: [facility] has implemented the eGFR calculation approach that does not have a coefficient for race that conforms to the NKF-ASN Task Force Recommendations. Performed By: #### 4 6932 #### LAB [address] [address] Cyrus Melgar M.D. [id number] Sodium [Moles/Vol] 140 mmol/L Normal 135-145 [facility] Comment on above: Order Comment: [facility] has implemented the eGFR calculation approach that does not have a coefficient for race that conforms to the NKF-ASN Task Force Recommendations. Performed By: #### 4 6969 #### [facility] LAB [address] [address] Cyrus Melgar M.D. [id number] Urea nitrogen [Mass/Vol] 26 mg/dL High 8-25 [facility] Comment on above: Order Comment: [facility] has implemented the eGFR calculation approach that does not have a coefficient for race that conforms to the NKF-ASN Task Force Recommendations. Performed By: #### 4 6932 #### LAB [address] [place], [place] [address] Cyrus Melgar M.D. [id number] Urea nitrogen/Creatinine [Mass ratio] 27.7 mg/mg High 10.0-20.0 [facility] Comment on above: Order Comment: [facility] has implemented the eGFR calculation approach that does not have a coefficient for race that conforms to the NKF-ASN Task Force Recommendations. Performed By: #### 4 [id number] #### LAB [address] [place], [place] [address] Cyrus Melgar M.D. [id number] CT ANGIOGRAM HEAD NECK (STRO KE)on 05-28-2025 CT ANGIOGRAM HEAD NECK (STROKE) EXAMINATION: CT ANGIOGRAM HEAD NECK (STROKE) HISTORY: Left-sided weakness, drowsiness, fatigue. Post tenecteplase administration. Dizziness. COMPARISON: None. Correlation CT head from earlier same date. TECHNIQUE: Initially, noncontrast head CT was obtained. Helical CTA of the head and neck with sagittal/coronal reformats MIP (maximum intensity projection) images were performed. Carotid stenosis is reported according to NASCET criteria. Dose reduction techniques were achieved by using automated exposure control and/or adjustment of mA and/or kV according to patient size and/or use of iterative reconstruction technique. FINDINGS: CTA HEAD: There are extensive calcified atherosclerotic plaques along the cavernous and clinoid internal carotid arteries resulting in multifocal mild narrowings without hemodynamically significant stenosis. The anterior cerebral arteries and middle cerebral arteries are patent without hemodynamically significant stenosis. There are calcified atherosclerotic plaques along the proximal V4 segments of the vertebral arteries without hemodynamically significant stenosis. The basilar artery is patent without hemodynamically significant stenosis. The P1 segment of the right posterior cerebral artery is hypoplastic and there is a dominant right posterior communicating artery. There is a focal severe stenosis in the distal P2 segment of the right posterior cerebral artery. The remainder of the bilateral posterior cerebral arteries are patent without hemodynamically significant stenosis. No aneurysm or arteriovenous malformation is identified. The visualized dural venous sinuses appear patent. CTA NECK: There are calcified atherosclerotic plaques along the aortic arch extending into the origins of the great vessels without hemodynamically significant stenosis. There are soft and calcified atherosclerotic plaques along the common carotid arteries without hemodynamically significant stenosis. There are extensive predominantly calcified atherosclerotic plaques at the carotid bifurcations extending into the proximal cervical internal carotid arteries without hemodynamically significant stenosis. The remainder of the cervical internal carotid arteries are patent without hemodynamically significant stenosis. There is tortuosity of the cervical internal carotid arteries. There is an area irregularity and beaded appearance in the mid left cervical internal carotid artery. The external carotid arteries are patent. There are calcified atherosclerotic plaques at the origins of the vertebral arteries resulting in a focal severe stenosis at the origin of the right vertebral artery and mild narrowing at the origin of the left vertebral artery. The remainder of the extracranial vertebral arteries are patent without hemodynamically significant stenosis. The left vertebral artery is dominant. There is tortuosity of the V1 segments of the vertebral arteries. No consolidation in the visualized upper lungs. There are subcentimeter hypoattenuating thyroid lobe nodules. There is no cervical lymphadenopathy. There are multilevel degenerative changes of the cervical spine without high-grade osseous spinal canal stenosis. There are degenerative changes of the temporomandibular joints. No suspicious osseous lesion. CT HEAD: There is prominence of the ventricles slightly out of proportion to the sulci with sulcal crowding at the vertex and an acute callosal angle at the level of the posterior commissure, compatible with mild generalized parenchymal volume loss and possible component of superimposed communicating hydrocephalus. There are scattered foci of hypoattenuation in the supratentorial periventricular and subcortical white matter which are nonspecific, probably represent chronic microvascular ischemic change. There is no acute intracranial hemorrhage or extra-axial collection. There is no mass effect or midline shift. There is no definite territorial loss of french-white differentiation. The calvarium is intact. The paranasal sinuses and mastoid air cells are well aerated. IMPRESSION: 1. 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 2. Focal severe stenosis at the origin of the non dominant right vertebral artery. 3. Short segment of irregularity and a beaded appearance in the left cervical internal carotid artery, suspicious for fibromuscular dysplasia. 4. No acute findings on noncontrast head CT. MRI is a more sensitive examination to evaluate for acute infarction. 5. Mild generalized parenchymal volume loss and findings that raise the possibility for a component of superimposed communicating hydrocephalus. Workstation ID: [id number] Dictated by: LUIS BEEBE on SunMay 28, 2025 4:11:45 PM EDT Transcribed by: LUIS BEEBE on SunMay 28, 2025 4:11:45 PM EDT Finalized by: LUIS BEEBE on SunMay 28, (more content not included)... [facility] Comment on above: Order Comment: Injur y/Trauma or Illness?:Illness/OtherHow long have you had these symptoms (acute/chronic)?:AcuteReason for exam?:level 1 stroke alert, left sided weakness, drowsy, fatigue, left sided drift, CTA s/p TNKType of Exam?:InitialAdditional signs and symptoms?:- CT HEAD WITHOUT CONTRAST (ST [facility])on 05-28-2025 CT HEAD WITHOUT CONTRAST (STROKE) EXAMINATION: CT HEAD WITHOUT CONTRAST (STROKE) HISTORY: ORDERING SYSTEM PROVIDED HISTORY: Stroke Protocol. TECHNOLOGIST PROVIDED HISTORY: Illness/Other. Reason for exam: Stroke alert level 1. Encounter Type: Initial. COMPARISON: None. TECHNIQUE: CT examination of the head without IV contrast. Dose reduction techniques were achieved by using automated exposure control and/or adjustment of mA and/or kV according to patient size and/or use of iterative reconstruction technique. FINDINGS: The paranasal sinuses are clear. Mastoid air cells are clear. No skull lesion. Nasopharynx normal. [employer] spaces normal. Prior cataract surgery. Moderate brain atrophy. No hydrocephalus. No shift of midline. Moderate chronic microvascular changes in the cerebral white matter. No acute intracranial hemorrhage. No intracranial masses. French matter and white matter differentiation is intact. IMPRESSION: 1. No acute findings. No hemorrhage. No masses. 2. Moderate brain atrophy. Moderate chronic microvascular changes. [facility]/pji Workstation ID: [id number] Dictated by: EYAD VICENTE on SunMay 28, 2025 2:01:14 PM EDT Transcribed by: RAVEN CHAMBERLAIN on SunMay 28, 2025 2:07:49 PM EDT Finalized by: EYAD VICENTE on SunMay 29, 2025 8:57:53 AM EDT [facility] Comment on above: Order Comment: Injur y/Trauma or Illness?:Illness/Other How long have you had these symptoms (acute/chronic)?:Acute Reason for exam?:stroke alert level 1 Type of Exam?:Initial Additional signs and symptoms?:. CT Head WO contraston 2024 Radiology Study observation (narrative) [facility] CTA Head vessels and Neck ve ssels W contrast Beatriz 05-28-2025 1. 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 2. Focal severe stenosis at the origin of the non dominant right vertebral artery. 3. Short segment of irregularity and a beaded appearance in the left cervical internal carotid artery, suspicious for fibromuscular dysplasia. 4. No acute findings on noncontrast head CT. MRI is a more sensitive examination to evaluate for acute infarction. 5. Mild generalized parenchymal volume loss and findings that raise the possibility for a component of superimposed communicating hydrocephalus. Workstation ID: [id number] [employer] EXAMINATION: CT ANGIOGRAM HEAD NECK (STROKE) HISTORY: Left-sided weakness, drowsiness, fatigue. Post tenecteplase administration. Dizziness. COMPARISON: None. Correlation CT head from earlier same date. TECHNIQUE: Initially, noncontrast head CT was obtained. Helical CTA of the head and neck with sagittal/coronal reformats MIP (maximum intensity projection) images were performed. Carotid stenosis is reported according to NASCET criteria. Dose reduction techniques were achieved by using automated exposure control and/or adjustment of mA and/or kV according to patient size and/or use of iterative reconstruction technique. FINDINGS: CTA HEAD: There are extensive calcified atherosclerotic plaques along the cavernous and clinoid internal carotid arteries resulting in multifocal mild narrowings without hemodynamically significant stenosis. The anterior cerebral arteries and middle cerebral arteries are patent without hemodynamically significant stenosis. There are calcified atherosclerotic plaques along the proximal V4 segments of the vertebral arteries without hemodynamically significant stenosis. The basilar artery is patent without hemodynamically significant stenosis. The P1 segment of the right posterior cerebral artery is hypoplastic and there is a dominant right posterior communicating artery. There is a focal severe stenosis in the distal P2 segment of the right posterior cerebral artery. The remainder of the bilateral posterior cerebral arteries are patent without hemodynamically significant stenosis. No aneurysm or arteriovenous malformation is identified. The visualized dural venous sinuses appear patent. CTA NECK: There are calcified atherosclerotic plaques along the aortic arch extending into the origins of the great vessels without hemodynamically significant stenosis. There are soft and calcified atherosclerotic plaques along the common carotid arteries without hemodynamically significant stenosis. There are extensive predominantly calcified atherosclerotic plaques at the carotid bifurcations extending into the proximal cervical internal carotid arteries without hemodynamically significant stenosis. The remainder of the cervical internal carotid arteries are patent without hemodynamically significant stenosis. There is tortuosity of the cervical internal carotid arteries. There is an area irregularity and beaded appearance in the mid left cervical internal carotid artery. The external carotid arteries are patent. There are calcified atherosclerotic plaques at the origins of the vertebral arteries resulting in a focal severe stenosis at the origin of the right vertebral artery and mild narrowing at the origin of the left vertebral artery. The remainder of the extracranial vertebral arteries are patent without hemodynamically significant stenosis. The left vertebral artery is dominant. There is tortuosity of the V1 segments of the vertebral arteries. No consolidation in the visualized upper lungs. There are subcentimeter hypoattenuating thyroid lobe nodules. There is no cervical lymphadenopathy. There are multilevel degenerative changes of the cervical spine without high-grade osseous spinal canal stenosis. There are degenerative changes of the temporomandibular joints. No suspicious osseous lesion. CT HEAD: There is prominence of the ventricles slightly out of proportion to the sulci with sulcal crowding at the vertex and an acute callosal angle at the level of the posterior commissure, compatible with mild generalized parenchymal volume loss and possible component of superimposed communicating hydrocephalus. There are scattered foci of hypoattenuation in the supratentorial periventricular and subcortical white matter which are nonspecific, probably represent chronic microvascular ischemic change. There is no acute intracranial hemorrhage or extra-axial collection. There is no mass effect or midline shift. There is no definite territorial loss of french-white differentiation. The calvarium is intact. The paranasal sinuses and mastoid air cells are well aerated. Luis Luong MD - 05/28/2025 EXAMINATION: CT ANGIOGRAM HEAD NECK (STROKE) HISTORY: Left-sided weakness, drowsiness, fatigue. Post tenecteplase administration. Dizziness. COMPARISON: None. Correlation CT head from earlier same date. TECHNIQUE: Initially, noncontrast head CT was obtained. Helical CTA of the head and neck with sagittal/coronal reformats MIP (maximum intensity projection) images were performed. Carotid stenosis is reported according to NASCET criteria. Dose reduction techniques were achieved by using automated exposure control and/or adjustment of mA and/or kV according to patient size and/or use of iterative reconstruction technique. FINDINGS: CTA HEAD: There are extensive calcified atherosclerotic plaques along the cavernous and clinoid internal carotid arteries resulting in multifocal mild narrowings without hemodynamically significant stenosis. The anterior cerebral arteries and middle cerebral arteries are patent without hemodynamically significant stenosis. There are calcified atherosclerotic plaques along the proximal V4 segments of the vertebral arteries without hemodynamically significant stenosis. The basilar artery is patent without hemodynamically significant stenosis. The P1 segment of the right posterior cerebral artery is hypoplastic and there is a dominant right posterior communicating artery. There is a focal severe stenosis in the distal P2 segment of the right posterior cerebral artery. The remainder of the bilateral posterior cerebral arteries are patent without hemodynamically significant stenosis. No aneurysm or arteriovenous malformation is identified. The visualized dural venous sinuses appear patent. CTA NECK: There are calcified atherosclerotic plaques along the aortic arch extending into the origins of the great vessels without hemodynamically significant stenosis. There are soft and calcified atherosclerotic plaques along the common carotid arteries without hemodynamically significant stenosis. There are extensive predominantly calcified atherosclerotic plaques at the carotid bifurcations extending into the proximal cervical internal carotid arteries without hemodynamically significant stenosis. The remainder of the cervical internal carotid arteries are patent without hemodynamically significant stenosis. There is tortuosity of the cervical internal carotid arteries. There is an area irregularity and beaded appearance in the mid left cervical internal carotid artery. The external carotid arteries are patent. There are calcified atherosclerotic plaques at the origins of the vertebral arteries resulting in a focal severe stenosis at the origin of the right vertebral artery and mild narrowing at the origin of the left vertebral artery. The remainder of the extracranial vertebral arteries are patent without hemodynamically significant stenosis. The left vertebral artery is dominant. There is tortuosity of the V1 segments of the vertebral arteries. No consolidation in the visualized upper lungs. There are subcentimeter hypoattenuating thyroid lobe nodules. There is no cervical lymphadenopathy. There are multilevel degenerative changes of the cervical spine without high-grade osseous spinal canal stenosis. There are degenerative changes of the temporomandibular joints. No suspicious osseous lesion. CT HEAD: There is prominence of the ventricles slightly out of proportion to the sulci with sulcal crowding at the vertex and an acute callosal angle at the level of the posterior commissure, compatible with mild generalized parenchymal volume loss and possible component of superimposed communicating hydrocephalus. There are scattered foci of hypoattenuation in the supratentorial periventricular and subcortical white matter which are nonspecific, probably represent chronic microvascular ischemic change. There is no acute intracranial hemorrhage or extra-axial collection. There is no mass effect or midline shift. There is no definite territorial loss of french-white differentiation. The calvarium is intact. The paranasal sinuses and mastoid air cells are well aerated. IMPRESSION: 1. 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 2. Focal severe stenosis at the origin of the non dominant right vertebral artery. 3. Short segment of irregularity and a beaded appearance in the left cervical internal carotid artery, suspicious for fibromuscular dysplasia. 4. No acute findings on noncontrast head CT. MRI is a more sensitive examination to evaluate for acute infarction. 5. Mild generalized parenchymal volume loss and findings that raise the possibility for a component of superimposed communicating hydrocephalus. Workstation ID: [id number] [facility] Radiology Study observation (narrative) [facility] CTA Head vessels and Neck ve ssels W contrast IVOrdered By: Luis Beebe on 05-28-2025 [facility] Work Phone: Calcium, IonizedOrdered By: Mohini Becerra on 05-28-2025 Calcium.ionized [Mass/Vol] 4.8 mg/dL 4.5 - 5.3 mg/dL [facility] Calcium.ionized [Mass/Vol]Or dered By: Mohini Becerra on 05-28-2025 Interpretation and review of laboratory results Normal [facility] Comprehensive metabolic 2000 panelon 05-28-2025 Albumin [Mass/Vol] 4.2 g/dL 3.2 - 5.2 g/dL [facility] ALP [Catalytic activity/Vol] 65 U/L 40 - 150 U/L [facility] ALT [Catalytic activity/Vol] 18 U/L 0 - 35 U/L [facility] Anion gap [Moles/Vol] 15 mmol/L 10 - 2 0 mmol/L [facility] AST [Catalytic activity/Vol] 21 U/L 0 - 35 U/L [facility] Bilirubin [Mass/Vol] 0.3 mg/dL 0.0 - 1 .3 mg/dL [facility] Calcium [Mass/Vol] 9.4 mg/dL 8.4 - 10. 2 mg/dL [facility] Chloride [Moles/Vol] 103 mmol/L 98 - 10 8 mmol/L [facility] Creatinine [Mass/Vol] 0.94 mg/dL 0.60 - 1.20 mg/dL [facility] GFR/1.73 sq M.predicted CKD-EPI (S/P/Bld) [Vol rate/Area] 62 - PINF [facility] Comment on above: Estimated GFR was ca lculated using the 2020 CKD-EPI creatinine equation. Glucose [Mass/Vol] 146 mg/dL High 65 - 99 mg/dL [facility] HCO3 [Moles/Vol] 26 mmol/L 21 - 32 mmol/L [facility] Interpretation and review of laboratory results Abnormal [facility] Potassium [Moles/Vol] 4.3 mmol/L 3.5 - 5.1 mmol/L [facility] Protein [Mass/Vol] 6.7 g/dL 6.0 - 8.0 g/dL [facility] Sodium [Moles/Vol] 140 mmol/L 135 - 145 mmol/L [facility] Urea nitrogen [Mass/Vol] 26 mg/dL High 8 - 25 mg/dL [facility] Urea nitrogen/Creatinine [Mass ratio] 27.7 mg/mg High 10.0 - 20.0 [facility] has implemented the eGFR calculation approach that does not have a coefficient for race that conforms to the NKF-ASN Task Force Recommendations. [facility] Critical Careon 05-28-2025 Timbo Holguin MD 05/28/2025 5:34 PM Critical Care Performed by: Timbo Holguin MD Authorized by: Timbo Holguin MD Total critical care time: 36 minutes Critical care was time spent personally by me on the following activities: discussions with consultants, examination of patient and pulse oximetry. [facility] ECG 12 Lead (Now)on 05-28-20 25 Atrial Rate 52 BPM [facility] P [place] 61 degrees [facility] P-R Interval 216 ms [facility] Q-T Interval 496 ms [facility] QRS Duration 146 ms [facility] QTC Calculation (Bezet) 461 ms [facility] R [place] -55 degrees [facility] T [place] -8 degrees [facility] Ventricular Rate 52 BPM [facility] Sinus bradycardia with 1st degree AV block Right bundle branch block Left anterior fascicular block Bifascicular block Cannot rule out Inferior infarct (masked by fascicular block?) , age undetermined Abnormal ECG ECG Cart Interpretation see physician note for interpretation. Confirmed by Lesvia Bolanos ([id number]) on 05/28/2025 9:07:09 PM [facility] ED Prov Noteon 05-28-2025 ED Prov Note [facility] EMERGENCY DEPARTMENT ATTENDING NOTE: NAME: Lidia Ortiz CSN: [id number] 80 y.o. PCP: Ferdinand Montague DO History: Chief Complaint: No chief complaint on file. HPI: 80-year-old female past medical history of hypertension hyperlipidemia diabetes presents to the emergency department as a level 1 stroke alert following dizziness symptoms and headache symptoms with resultant loss of consciousness. Patient describes headache symptoms with room spinning sensation. Patient with a lams of 2. No specific alleviating or aggravating factors. Patient denies any other symptoms at this time. Patient actively vomiting PMHx: Past Medical History: Diagnosis Date Cancer (HCC) Hypertension PMSx: Past Surgical History: Procedure Laterality Date LUNG REMOVAL, PARTIAL Right FAM. Hx: No family history on file. SOC. Hx: Social History [1] MEDs: Previous Medications Medication Sig losartan (COZAAR) 100 MG tablet Take 1 (one) tablet (100 mg total) by mouth every evening . metFORMIN (GLUCOPHAGE) 500 MG tablet Take 1 (one) tablet (500 mg total) by mouth every evening . metFORMIN (GLUCOPHAGE-XR) 500 MG 24 hr tablet Take 1 (one) tablet (500 mg total) by mouth daily with breakfast . metoprolol succinate (TOPROL-XL) 25 MG 24 hr tablet Take 1 (one) tablet (25 mg total) by mouth every evening . pioglitazone (ACTOS) 15 MG tablet Take 1 (one) tablet (15 mg total) by mouth daily . rosuvastatin 5 mg CpSP Take 1 (one) capsule (5 mg total) by mouth every other day . ALL: Allergies[2] Physical Exam: Patient Vitals for the past 24 hrs: BP Temp Temp src Pulse Resp SpO2 Weight 05/28/25 1720 134/69 -- -- 66 -- 96 % -- 05/28/25 1715 130/60 -- -- 66 -- 96 % -- 05/28/25 1710 138/70 -- -- 66 -- 95 % -- 05/28/25 1706 129/64 -- -- 66 -- 96 % -- 05/28/25 1645 (!) 115/57 -- -- 65 -- 96 % -- 05/28/25 1625 126/66 -- -- 65 14 96 % -- 05/28/25 1610 (!) 140/65 -- -- 63 15 99 % -- 05/28/25 1608 -- -- -- 65 -- 95 % -- 05/28/25 1607 -- -- -- 63 -- 96 % -- 05/28/25 1606 (!) 144/66 -- -- 63 -- 97 % -- 05/28/25 1603 (!) 169/80 -- -- 64 14 96 % -- 05/28/25 1600 (!) 169/80 -- -- 62 14 95 % -- 05/28/25 1555 (!) 186/89 -- -- 60 14 95 % -- 05/28/25 1550 (!) 178/80 -- -- (!) 59 14 96 % -- 05/28/25 1545 (!) 173/80 -- -- 60 15 93 % -- 05/28/25 1540 (!) 179/79 -- -- 62 -- 95 % -- 05/28/25 1535 (!) 181/81 -- -- 66 -- 91 % -- 05/28/25 1530 -- -- -- 73 -- 97 % -- 05/28/25 1520 (!) 175/83 -- -- (!) 57 -- 92 % -- 05/28/25 1515 (!) 169/76 -- -- 60 -- 100 % -- 05/28/25 1512 -- -- -- (!) 56 14 (!) 5 % -- 05/28/25 1510 (!) 164/74 -- -- (!) 56 -- 97 % -- 05/28/25 1505 (!) 163/78 -- -- (!) 58 -- 93 % -- 05/28/25 1500 (!) 155/75 -- -- (!) 57 -- 93 % -- 05/28/25 1456 126/83 -- -- (!) 56 -- 94 % -- 05/28/25 1446 (!) 149/66 -- -- (!) 58 -- 95 % -- 05/28/25 1440 (!) 155/71 -- -- (!) 53 -- 97 % -- 05/28/25 1435 139/69 -- -- -- -- 96 % -- 05/28/25 1431 (!) 145/70 -- -- (!) 52 -- 93 % -- 05/28/25 1430 -- -- -- (!) 54 -- 93 % -- 05/28/25 1426 139/68 -- -- (!) 51 -- 96 % -- 05/28/25 1423 131/65 -- -- (!) 57 -- 93 % -- 05/28/25 1415 (!) 149/135 -- -- (!) 54 -- 93 % -- 05/28/25 1411 136/71 97.7 degrees F (36.5 degrees C) Oral (!) 51 14 95 % 76.6 kg (168 lb 12.8 oz) 05/28/25 1409 139/67 -- -- (!) 51 -- 97 % -- 05/28/25 1400 -- -- -- -- -- 94 % -- Physical Exam Vitals and nursing note reviewed. Constitutional: General: She is awake. HENT: Head: Normocephalic and atraumatic. Right Ear: External ear normal. Left Ear: External ear normal. Nose: Nose normal. Mouth/Throat: Mouth: Mucous membranes are dry. Pharynx: Oropharynx is clear. Eyes: General: Lids are normal. No scleral icterus. Extraocular Movements: Extraocular movements intact. Pupils: Pupils are equal, round, and reactive to light. Cardiovascular: Rate and Rhythm: Normal rate. Pulmonary: Effort: Pulmonary effort is normal. No accessory muscle usage or respiratory distress. Abdominal: Palpations: Abdomen is soft. Skin: General: Skin is warm. Comments: No acute rash visualized on exposed skin Neurological: Mental Status: She is alert. GCS: GCS eye subscore is 4. GCS verbal subscore is 5. GCS motor subscore is 6. Cranial Nerves: No dysarthria or facial asymmetry. Sensory: Sensation is intact. Motor: Motor function is intact. Coordination: Coordination is intact. Comments: GCS of 14. Opens to verbal NIH Scale: LOC: 0 - alert LOC Questions: 0 - answers both correctly LOC Commands: 0 - performs both correctly Best gaze: 0 - normal Vision: 0 - no visual loss Facial Palsy: 0 - normal Left arm: 1 - drift Right arm; 0 - no drift Left le - no drift Right le - no drift Limb ataxia: 0 - absent Sensation: 0 - normal Best language: 0 - no aphasia Dysarthria: 0 - normal articulation Extinction and inattention: 0 - no neglect Stroke Scale: 1 Laboratory & Radiologi (more content not included)... Normal [facility] EKGon 05-28-2025 [facility] Glucose (Bld) [Mass/Vol]on 0 05-28-2025 Glucose [Mass/Vol] 152 mg/dL High 65 - 99 mg/dL [facility] Interpretation and review of laboratory results Abnormal [facility] HEMOGLOBIN A1Con 05-28-2025 Glucose [Mass/Vol] 163 mg/dL High 74-114 [facility] Comment on above: Performed By: #### [id number] #### [facility] [address] [address] Cyrus Melgar M.D. [id number] HbA1c (Bld) [Mass fraction] 7.3 % High 4.2-5.6 [facility] Comment on above: Performed By: #### [id number] #### LAB [address] [address] Cyrus Melgar M.D. [id number] HbA1c (Bld) [Mass fraction]o n 05-28-2025 Average glucose Estimated from glycated hemoglobin (Bld) [Mass/Vol] 163 mg/dL High 74 - 114 mg/dL [facility] Interpretation and review of laboratory results Abnormal [facility] Hemoglobin A1con 05-28-2025 HbA1c (Bld) [Mass fraction] 7.3 % High 4.2 - 5.6 % [facility] INR Coag (PPP) [Relative violeta e]on 05-28-2025 Interpretation and review of laboratory results Normal [facility] PT Coag (PPP) [Time] 13.9 s [facility] During the induction phase of oral anticoagulation, the INR may not reflect the anticoagulation status of the patient. Therapeutic ranges for INR's are: Most clinical situations: INR 2.0-3.0 Mechanical Prosthetic Valve: INR 2.5-3.5 Critical: INR >5.0 [facility] LIPASEon 05-28-2025 Lipase [Catalytic activity/Vol] 52 U/L Normal 15-65 [facility] Comment on above: Performed By: #### 4 [id number] #### LAB [address] [address] Cyrus Melgar M.D. [id number] LIPID PANELon 05-28-2025 Cholesterol [Mass/Vol] 164 mg/dL Normal 100-199 [facility] Comment on above: Result Comment: [facility] Cholesterol Education Program Guidelines: Cholesterol Desirable: <200 mg/dL Borderline High: 200-239 mg/dL High: greater than or equal to 240 mg/dL Performed By: #### 4 [id number] #### LAB [address] [address] Cyrus Melgar M.D. [id number] Cholesterol in HDL [Mass/Vol] 65 mg/dL Normal 40-59 [facility] Comment on above: Result Comment: [facility] Cholesterol Education [employer] Guidelines: HDL Cholesterol Low: <40 mg/dL Near Optimal: 40-59 mg/dL High: greater than or equal to 60 mg/dL Performed By: #### 4 [id number] #### LAB [address] [address] Cyrus Melgar M.D. [id number] Cholesterol.total/Chol esterol in HDL [Mass ratio] 2.5 {ratio} Normal [facility] Comment on above: Result Comment: [facility] Cholesterol/HDL Ratio: Average risk: 4.4 1/2 average risk: 3.3 2 x average risk: 7.1 Performed By: #### 4 [id number] #### LAB [address] [address] Cyrus Melgar M.D. [id number] LDL CHOLESTEROL CALCULATED 86 mg/dL Normal 10-130 [facility] Comment on above: Result Comment: [facility]: LDL Cholesterol Optimal: <100 mg/dL Near Optimal/above Optimal: 100-129 mg/dL Borderline High: 130-159 mg/dL High: 160-189 mg/dL Very High: greater than or equal to 190 mg/dL Performed By: #### 4 [id number] #### LAB [address] [place], [place] [address] Cyrus Melgar M.D. [id number] NON HDL CHOL 99 mg/dL Normal [facility] Comment on above: Result Comment: [facility] Cholesterol Education Program Guidelines: NON HDL Cholesterol Desirable: <130 mg/dL Borderline High: 130-159 mg/dL High: 160-189 mg/dL Very High: > or = 190 mg/dL Performed By: #### 4 [id number] #### LAB [address] [address] Cyrus Melgar M.D. [id number] Triglyceride [Mass/Vol] 64 mg/dL Normal 30-150 [facility] Comment on above: Result Comment: [facility] Cholesterol Education Program Guidelines: Triglyceride Normal: <150 mg/dL Borderline High: 150-199 mg/dL High: 200-499 mg/dL Very High: greater than or equal to 500 mg/dL Performed By: #### 4 [id number] #### LAB [address] [address] Cyrus Melgar M.D. [id number] Lipaseon 05-28-2025 Lipase [Catalytic activity/Vol] 52 U/L 15 - 65 U/L [facility] Lipase [Catalytic activity/V ol]on 05-28-2025 Interpretation and review of laboratory results Normal [facility] Lipid 1996 panelon Cholesterol [Mass/Vol] 164 mg/dL 100 - 199 mg/dL [facility] Comment on above: National Cholesterol Education Program Guidelines: Cholesterol Desirable: <200 mg/dL Borderline High: 200-239 mg/dL High: greater than or equal to 240 mg/dL Cholesterol in HDL [Mass/Vol] 65 mg/dL 40 - 59 mg/dL [facility] Comment on above: National Cholesterol Education Program Guidelines: HDL Cholesterol Low: <40 mg/dL Near Optimal: 40-59 mg/dL High: greater than or equal to 60 mg/dL Cholesterol in LDL [Mass/Vol] 86 mg/dL 10 - 130 mg/dL [facility] Comment on above: National Cholesterol Education Program Guidelines: LDL Cholesterol Optimal: <100 mg/dL Near Optimal/above Optimal: 100-129 mg/dL Borderline High: 130-159 mg/dL High: 160-189 mg/dL Very High: greater than or equal to 190 mg/dL Cholesterol non HDL [Mass/Vol] 99 mg/dL [facility] Comment on above: National Cholesterol Education Program Guidelines: NON HDL Cholesterol Desirable: <130 mg/dL Borderline High: 130-159 mg/dL High: 160-189 mg/dL Very High: > or = 190 mg/dL Cholesterol.total/Chol esterol in HDL [Mass ratio] 2.5 {ratio} ratio [facility] Comment on above: Female Cholesterol/H DL Ratio: Average risk: 4.4 1/2 average risk: 3.3 2 x average risk: 7.1 Triglyceride [Mass/Vol] 64 mg/dL 30 - 150 mg/dL [facility] Comment on above: National Cholesterol Education Program Guidelines: Triglyceride Normal: <150 mg/dL Borderline High: 150-199 mg/dL High: 200-499 mg/dL Very High: greater than or equal to 500 mg/dL MAGNESIUM LEVELon 05-28-2025 Magnesium [Mass/Vol] 2.0 mg/dL Normal 1.6-2.4 [facility] Comment on above: Performed By: #### [id number] #### LAB [address], [place] [address] Cyrus Melgar M.D. [id number] MR BRAIN WITHOUT CONTRASTon 05-28-2025 MR BRAIN WITHOUT CONTRAST EXAMINATION: MR BRAIN WITHOUT CONTRAST HISTORY: Stroke, follow up Repeat Injury/Trauma or Illness?:Illness/Othe r How long have you had these symptoms (acute/chronic)?:Acut e Reason for exam?:left sided headache starting yesterday with dizziness and syncopal episode: hx of lung cancer and hx of melanoma: Type of Exam?:Unknown R42 Dizziness COMPARISON: CT head 05/28/2025 TECHNIQUE: Multiplanar multisequence MR imaging of the brain was performed without contrast. FINDINGS: Calvarium/skull base: No focal marrow replacing lesion suggestive of neoplasm. Orbits: Bilateral tribe ocular lens replacements. Paranasal sinuses: Imaged portions clear. Brain: No restricted diffusion. Patchy T2 FLAIR signal hyperintensities are present involving the supratentorial white matter and central pontine white matter which while nonspecific most commonly relates to sequela of small vessel disease. Tiny remote embedded developer infarcts involving the bilateral cerebellum inferiorly. No mass effect, hemorrhage, or hydrocephalus. Grossly normal flow-related signal in the major intracranial arteries and dural sinuses. IMPRESSION: No acute ischemia. Chronic intracranial change described above. Workstation ID: [id number] Dictated by: VEDA SLATER on SunMay 29, 2025 11:18:37 AM EDT Transcribed by: VEDA SLATER on SunMay 29, 2025 11:18:37 AM EDT Finalized by: VEDA SLATER on SunMay 29, 2025 11:18:37 AM EDT Normal [facility] Comment on above: Order Comment: Repea tInjury/Trauma or Illness?:Illness/OtherHow long have you had these symptoms (acute/chronic)?:AcuteReason for exam?:left sided headache starting yesterday with dizziness and syncopal episode: hx of lung cancer and hx of melanoma:Type of Exam?:UnknownAdditional signs and symptoms?:n Magnesiumon 05-28-2025 Magnesium [Mass/Vol] 2 mg/dL 1.6 - 2 .4 mg/dL [facility] No Panel Informationon 05-28 Interpretation and review of laboratory results Normal [facility] Obtain venous blood gases an d performon 05-28-2025 [facility] PHOSPHORUSon 05-28-2025 Phosphate [Mass/Vol] 4.0 mg/dL Normal 2.8-4.1 [facility] Comment on above: Performed By: #### 4 [id number] #### [facility] [address] [place], [place] [address] Cyrus Melgar M.D. [id number] POC GLUCOSE - [facility] 025 Glucose [Mass/Vol] 152 mg/dL High 65-99 [facility] Comment on above: Performed By: #### 4 [id number] #### [facility] [address] [place], [place] [address] Cyrus Melgar M.D. [id number] POC VENOUS BLOOD GAS PANEL-P [facility]LM - [facility] 05-28-2025 BASE EXCESS, VENOUS 3.2 High -2.0-2.0 [facility] CALCIUM IONIZED 4.7 mg/dL Normal 4.5-5.3 [facility] CARBOXYHEMOGLOBIN 2.0 % of total Hb High <=1.5 [facility] Comment on above: Result Comment: Refe rence Ranges: Suburban Non-smokers: <1.5% Smokers: 1.5-5.0% Heavy Smokers: 5.0-9.0% Chloride [Moles/Vol] 105 mmol/L Normal 98-108 [facility] Glucose [Mass/Vol] 148 mg/dL High 65-99 [facility] HCO3 (Bld) [Moles/Vol] 29.1 mmol/L High 24.0-28.0 [facility]rit (Bld) [Volume fraction] 42.6 % Normal 36.0-46.0 [facility] Hemoglobin (Bld) [Mass/Vol] 13.9 g/dL Normal 12.0-16.0 [facility] LACTIC ACID, WHOLE BLOOD 1.6 mmol/L Normal 0.6-2.0 [facility] METHEMOGLOBIN 0.6 % Normal 0.0-2.0 [facility] O2HB 60.3 % Normal No established reference range [facility] Oxygen saturation in Blood 61.9 % Normal 40.0-70.0 [facility] PCO2 VENOUS 48.6 mm Hg Normal 41.0-51.0 [facility] PH VENOUS 7.39 Normal 7.32-7.42 [facility] PO2 VENOUS 33 mm Hg Normal 25-40 [facility] Potassium [Moles/Vol] 4.3 mmol/L Normal 3.5-5.1 [facility] Sodium [Moles/Vol] 143 mmol/L Normal 135-145 [facility] alth SPECIMEN SOURCE RADIANCE Not specified Normal [facility] POC Venous Blood Gas Panel-P [facility] 05-28-2025 Base excess Calc (BldV) [Moles/Vol] 3.2 mmol/L High -2.0 - 2.0 [facility] Calcium.ionized [Mass/Vol] 4.7 mg/dL 4.5 - 5.3 mg/dL [facility] Carboxyhemoglobin (BldA) [Mass fraction] 2 [facility] Comment on above: Reference Ranges: [place] Non-smokers: <1.5% Smokers: 1.5-5.0% Heavy Smokers: 5.0-9.0% CO2 (BldV) [Partial pressure] 48.6 mm[Hg] [facility] Glucose post fast [Mass/Vol] 148 mg/dL High 65 - 99 mg/dL [facility] Hematocrit (BldA) [Volume fraction] 42.6 % 36.0 - 46.0 % [facility] Interpretation and review of laboratory results Abnormal [facility] Lactate [Moles/Vol] 1.6 mmol/L 0.6 - 2. 0 mmol/L [facility] Methemoglobin (BldA) [Mass fraction] 0.6 % 0.0 - 2.0 % [facility] Oxygen (BldV) [Partial pressure] 33 mm[Hg] [facility] Oxygen saturation in Venous blood 61.9 % 40.0 - 70.0 % [facility] Oxyhemoglobin (BldA) [Mass fraction] 60.3 % -100.0 - 101.0 % [facility] pH (BldV) 7.39 [pH] 7.32 - 7.42 [facility] Specimen source Nom (Unsp spec) Not specified [facility] PT/INRon 05-28-2025 INR Coag (PPP) [Relative time] 1.1 {INR} 0.8 - 1.1 [facility] INR Coag (PPP) [Relative time] 1.1 {INR} Normal 0.8-1.1 [facility] Comment on above: Order Comment: Risa felix the induction phase of oral anticoagulation, the INR may not reflect the anticoagulation status of the patient. Therapeutic ranges for INR's are:Most clinical situations: INR 2.0-3.0Mechanical Prosthetic Valve: INR 2.5-3.5Critical: INR >5.0 Performed By: #### [id number] #### LAB [address] [place], [place] [address] Cyrus Melgar M.D. [id number] PT Coag (PPP) [Time] 13.9 s Normal 11.8-14.3 [facility] Comment on above: Order Comment: Risa felix the induction phase of oral anticoagulation, the INR may not reflect the anticoagulation status of the patient. Therapeutic ranges for INR's are:Most clinical situations: INR 2.0-3.0Mechanical Prosthetic Valve: INR 2.5-3.5Critical: INR >5.0 Performed By: #### 4 [id number] #### LAB [address] [place], [place] [address] Cyrus Melgar M.D. [id number] Phosphoruson 05-28-2025 Phosphate [Mass/Vol] 4 mg/dL 2.8 - 4 .1 mg/dL [facility] TROPONIN X 2 (NOW AND REPEAT IN 2 HOURS)on 05-28-2025 TROPONIN T DELTA CHANGE INTERPRETATION No biomarker evidence of cardiac injury. Normal [facility] Comment on above: Performed By: #### 4 6932 #### LAB [address] [address] Cyrus Melgar M.D. [id number] TROPONIN T DELTA DIFFERENCE -1 ng/L Normal < = -/+ 7 change [facility] Comment on above: Performed By: #### 4 6932 #### LAB [address] [address] Cyrus Melgar M.D. [id number] TROPONIN T NG/L 8 ng/L Normal <=14 [facility] Comment on above: Performed By: #### 4 6932 #### LAB [address] [address] Cyrus Melgar M.D. [id number] BASELINE TROPONIN T NG/L 9 ng/L Normal <=14 [facility] Comment on above: Performed By: #### 4 6932 #### LAB [address] [address] Cyrus Melgar M.D. [id number] TROPONIN T INTERPRETATION Normal Normal [facility] Comment on above: Performed By: #### 4 6932 #### LAB [address] [address] Cyrus Melgar M.D. [id number] TYPE AND SCREENon 05-28-2025 TYPE AND SCREEN ABORH: A Negative AB SCREEN: Positive EXPIRATION DATE: 05/31/2025 23:59 EST Normal [facility] Troponin x 2 (Now and Repeat in 3 hours)on 05-28-2025 Delta Difference Troponin T -1 ng/L < = -/+ 7 change [facility] Interp Troponin T Delta Change No biomarker evidence of cardiac injury. [facility] Troponin T.cardiac High sensitivity method [Mass/Vol] 8 ng/L NINF - 14 ng/L [facility] Troponin T 9 ng/L NINF - 14 ng/L [facility] Troponin T Interpretation Normal [facility] XR CHEST PA/APon 05-28-2025 XR CHEST PA/AP EXAMINATION: XR CHEST PA/AP HISTORY: ORDERING SYSTEM PROVIDED HISTORY: Chest Pain, TECHNOLOGIST PROVIDED HISTORY: Illness/Other Reason for exam: Chest Pain, stroke alert Cancer History: . Surgery, RadiationHistory: . Encounter Type: Initial Additional signs and symptoms: . ORDERING SYSTEM PROVIDED DIAGNOSIS CODES: R42 Dizziness R55 Syncope, unspecified syncope type R51.9 Headache H53.149 Photophobia I63.9 Cerebrovascular accident (CVA), unspecified mechanism (HCC) COMPARISON: None FINDINGS: There are no focal areas of collapse or consolidation. There is no pulmonary edema. Elevated left hemidiaphragm. Cardiac silhouette is at the upper limits of normal size. No pneumothorax or pleural effusion. Calcific, tortuous ectatic thoracic aorta. IMPRESSION: No acute pulmonary process. Workstation ID: [id number] Dictated by: GERMÁN SOW on SunMay 28, 2025 6:21:24 PM EDT Transcribed by: GERMÁN SOW on SunMay 28, 2025 6:21:24 PM EDT Finalized by: GERMÁN SOW on SunMay 28, 2025 6:21:24 PM EDT Normal [facility] Comment on above: Order Comment: Injur y/Trauma or Illness?:Illness/OtherHow long have you had these symptoms (acute/chronic)?:AcuteReason for exam?:Chest Pain, stroke alertHistory of cancer?:.Surgeries, chemotherapy, or radiation?:.Type of Exam?:InitialAdditional signs and symptoms?:. XR Chest PA and Abdomen APon 05-28-2025 No acute pulmonary process. Workstation ID: [id number] GE RIS EXAMINATION: XR CHEST PA/AP HISTORY: ORDERING SYSTEM PROVIDED HISTORY: Chest Pain, TECHNOLOGIST PROVIDED HISTORY: Illness/Other Reason for exam: Chest Pain, stroke alert Cancer History: . Surgery, RadiationHistory: . Encounter Type: Initial Additional signs and symptoms: . ORDERING SYSTEM PROVIDED DIAGNOSIS CODES: R42 Dizziness R55 Syncope, unspecified syncope type R51.9 Headache H53.149 Photophobia I63.9 Cerebrovascular accident (CVA), unspecified mechanism (HCC) COMPARISON: None FINDINGS: There are no focal areas of collapse or consolidation. There is no pulmonary edema. Elevated left hemidiaphragm. Cardiac silhouette is at the upper limits of normal size. No pneumothorax or pleural effusion. Calcific, tortuous ectatic thoracic aorta. Germán June MD - 05/28/2025 EXAMINATION: XR CHEST PA/AP HISTORY: ORDERING SYSTEM PROVIDED HISTORY: Chest Pain, TECHNOLOGIST PROVIDED HISTORY: Illness/Other Reason for exam: Chest Pain, stroke alert Cancer History: . Surgery, RadiationHistory: . Encounter Type: Initial Additional signs and symptoms: . ORDERING SYSTEM PROVIDED DIAGNOSIS CODES: R42 Dizziness R55 Syncope, unspecified syncope type R51.9 Headache H53.149 Photophobia I63.9 Cerebrovascular accident (CVA), unspecified mechanism (HCC) COMPARISON: None FINDINGS: There are no focal areas of collapse or consolidation. There is no pulmonary edema. Elevated left hemidiaphragm. Cardiac silhouette is at the upper limits of normal size. No pneumothorax or pleural effusion. Calcific, tortuous ectatic thoracic aorta. IMPRESSION: No acute pulmonary process. Workstation ID: [id number] [facility] Radiology Study observation (narrative) [facility] XR Chest PA and Abdomen APOr dered By: Germán Sow on 05-28-2025 [facility] Work Phone: aPTT Coag (Zhen) [Time]Ordere d By: Mike Bowman on 05-28-2025 Interpretation and review of laboratory results Abnormal [facility] Therapeutic range fo r APTT's is 68 - 104 seconds [facility] CNOVSPon 11-20-2024 CNOVSP Visit (SP) Office (FAVIAN) LIDIA ORTIZ ([id number]) 1945 F Date Time Provider Department 11/20/24 1:30 PM GEORGIANA HURLEY During your visit today, we recorded the following information about you: Temperature Pulse Blood pressure Weight 97.4 degrees 71/minute 176/107 73.7 kg Georgiana Hurley 11/21/2024 1:07 PM Signed Lidia Ortiz 1945 HPI: Lidia Ortiz is a 79 year old female who presents here today for follow up lung cancer. Per Dr. Alvarez's previous note: H/o type 2 diabetes (metformin), hypertension and hyperlipidemia. She underwent evaluation for a cough which had been persistent for about 3 months. She had no complaints of dyspnea fever or wheezing. A CT of the chest was performed on 01/24/2022. There was a 3.5 x 3.8 x 4.3 cm mass in the right upper lobe. This abutted the right hilar region. There was no demonstrated pleural abnormality. Mediastinum and hilar regions appeared normal otherwise. There were multilevel degenerative changes of thoracic spine with a 1.4 cm area of sclerosis observed in the posterior aspect of the T9 or T12 vertebrae at the level of the pedicle on the right side for which correlation with bone scan was recommended. There was a 1 cm cyst in the medial inferior aspect of the right lobe of the liver. Patient underwent a CT-guided right lung biopsy on 02/06/2022. Pathology: -Non-small cell carcinoma, favor adenocarcinoma consistent with lung primary. Specimen was positive for TTF-1, CK7, CK 8 in rare cells that showed positivity for CK20. Complicated by pneumothorax that required chest tube. She underwent MRI of the brain which demonstrated no evidence of metastatic disease. PET scan with results noted. She also had an MRI of the thoracic spine. Images have been loaded. She underwent CT-guided biopsy of the suspicious lesion in T10 vertebral body on 03/09/2022. Pathology demonstrated fragments of sclerotic bone with bone marrow fibrosis and edema and no evidence of carcinoma. She underwent surgical evaluation at [facility]. Previous therapy: 1) Neoadjuvant carboplatin, pemetrexed and nivolumab. Underwent right VATS, right middle lobectomy, right lower lung wedge resection, mediastinal lymphadenectomy and intercostal nerve block on 06/26/2022. Pathology: A. Lymph node #7, excision: - Three (3) lymph nodes negative for neoplasm. B. Lymph node #10R, excision: - One (1) lymph node negative for neoplasm. C. Lymph node #10R, excision: - One (1) lymph node negative for neoplasm. D. Lymph node #11R, excision: - One (1) lymph node negative for neoplasm. E. Lymph node #11R, excision: - One (1) lymph node negative for neoplasm. F. Lymph node #11R, excision: - One (1) lymph node negative for neoplasm. G. Right lung, middle lobe, lobectomy: - Invasive adenocarcinoma, acinar predominant, 0.5 cm - Non-necrotizing granulomas. H. Right lung, lower lobe, wedge excision: - Patchy subpleural fibrosis with non-necrotizing granulomas, dystrophic calcium and reactive epithelial atypia. - Negative for neoplasm. I. Lymph node #4R, excision: - Three (3) lymph nodes negative for neoplasm. J. Lymph node #2R, excision: - Three (3) lymph nodes negative for neoplasm Interval Hx: Ms. Ortiz presents today for follow up and CT review. She denies new issues. No SOB. CP, no cough. Metformin keeps me regular. Stomach bug recently. Symptoms have since resolved. Stopped lyrica due to brain fog. Side pain has also resolved. No new issues. Appetite and energy level stable. No new aches or pains, lumps or bumps. No bleeding. BP elevated in the office today. She notes that this happens at every doctors visit for many years. Denies symptoms of HTN. ROS: All systems reviewed on 11/20/2024 with pertinent positives and negatives as outlined in the interval history. Past medical history, appointments, medications, allergies reviewed. No changes. EXAM: BP 176/107 Pulse 71 Temp 36.3 ?C (97.4 ?F) Wt 73.7 kg (162 lb 8 oz) SpO2 91% BMI 23.80 kg/m? APPEARANCE Well appearing, alert, in no acute distress, well-hydrated, well nourished. HEART RRR with normal S1 and S2, no murmurs LUNG clear to auscultation LYMPH NODES No palpable LAD ABDOMEN bowel sounds normoactive, soft, non-tender EXTREMITIES No edema NEURO Awake, alert and oriented x 3, No involuntary motions. SKIN Skin color, texture, turgor normal, no suspicious rashes or lesions I have performed the physical exam today (11/20/2024) and have edited the note to correlate with current findings. RADIOLOGY: CT chest 07/29/24: IMPRESSION: Status post right middle lobectomy and wedge resection in the right lower lobe. Similar scarring and suture line in the right lung with similar nodularity. Stable nodular density along the right heart border. Interval resolution of some of t (more content not included)... Normal [facility] CNPNon 11-20-2024 CNPN Telephone (ELSAMELINA) LIDIA ORTIZ ([id number]) 1945 F Date Time Provider Department 11/20/24 GEORGIANA HURLEY During your visit today, we recorded the following information about you: Alyssa Duke 11/20/2024 3:[address] chest in about 6 months followed by OV with Dr. Alvarez to review results about [address] scan Alyssa Duke 11/21/2024 8:53 AM Signed Called patient and left a vm to return our call Alyssa Duke 11/22/2024 8:55 AM Signed Patient is scheduled Allergies As of Date: 11/20/2024 Noted Allergy Reaction DEMEROL (MEPERIDINE (PF)) 12/06/2009 LACTOSE 10/10/2016 14 - Other: See Comments Comments: Bloating and abdominal pain Date Reviewed: 11/20/2024 Reviewed by: Annie Liang MA - Fully Assessed Reason for Visit: avs [Other] Prescriptions as of 02/21/2025 - metFORMIN ER (GLUMETZA) 500 mg 24 hr tablet Take 500 mg by mouth twice daily. - metoprolol succinate ER (TOPROL XL) 50 mg 24 hr tablet Take 50 mg by mouth once daily. - losartan (COZAAR) 100 mg tablet Take 100 mg by mouth once daily. - nitroglycerin sublingual (NITROQUICK) 0.4 mg SL tablet Take 0.4 mg by mouth as needed. - alendronate (FOSAMAX) 70 mg tablet Take 70 mg by mouth one time a week. - rosuvastatin 5 mg cpSP Take 5 mg by mouth every other day. - therapeutic multivitamin ORAL tablet Take 1 tablet by mouth once daily. - Coenzyme A32-Qhaybgj E 100-100 mg-unit cap Take 1 capsule by mouth once daily. - METROLOTION 0.75 % bid face Meds Comments as of 06/23/2022: 06/23/22 stopped all suppl;ement on Sunday on 06/18/22 Problem List As Of Date 11/20/2024 Noted Resolved Gross Hematuria [R31.0] 06/10/2010 Calculus of Kidney [N20.0] 06/10/2010 Hypercholesterolemia [E78.00] Malignant neoplasm of upper lobe of right lung *02/24/2022 Preoperative examination [Z01.818] 03/24/2022 Cough [R05.9] 03/24/2022 Controlled type 2 diabetes mellitus without com* Discharge planning issues [Z75.8] 06/26/2022 Pain, postoperative, acute [G89.18] 06/26/2022 Primary hypertension [I10] 06/26/2022 Primary lung adenocarcinoma, right (HCC) [C34.9*06/26/2022 Bilateral sciatica [M54.31, M54.32] 06/28/2022 Atrial fibrillation (HCC) [I48.91] 06/30/2022 Posterior tibial tendon dysfunction [M76.829] 09/29/2024 Osteoarthrosis, 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] 09/29/2024 Encounter Status:Closed by ALYSSA DUKE on 02/21/25 Normal [facility] CBC W Auto Differential pane l (Bld)on 11-04-2024 Basophils (Bld) [#/Vol] 0.03 10*3/uL Normal <0.11 [facility] Comment on above: Order Comment: Speci men Type: BLOOD SPECIMENOrdering Facility: [facility] Address: [address] [place] [address] Performed By: #### 5 7021-8 ####[facility] [id number] [place] [address] [place] Basophils/100 WBC (Bld) 0.5 % Normal [facility] Comment on above: Order Comment: Speci men Type: BLOOD SPECIMENOrdering Facility: [facility] Address: [address] [place] [address] Performed By: #### 5 7021-8 ####[facility] CITY[facility] [id number] [place] [address] [place] Differential cell count method Nom (Bld) Auto Normal [facility] Comment on above: Order Comment: Speci men Type: BLOOD SPECIMENOrdering Facility: [facility] Address: [address] [place] [address] Performed By: #### 5 7021-8 ####[facility] [id number] [place] [address] [place] Eosinophils (Bld) [#/Vol] 0.04 10*3/uL Normal <0.46 [facility] Comment on above: Order Comment: Speci men Type: BLOOD SPECIMENOrdering Facility: [facility] Address: [address] [place] [address] Performed By: #### 5 7021-8 ####[facility] [id number] [place] [address] [place] Eosinophils/100 WBC (Bld) 0.6 % Normal [facility] Comment on above: Order Comment: Speci men Type: BLOOD SPECIMENOrdering Facility: [facility] Address: [address] [place] [address] Performed By: #### 5 7021-8 ####[facility] [id number] [place] [address] [place] Erythrocyte distribution width (RBC) [Ratio] 12.6 % Normal 11.5-15.0 [facility] Comment on above: Order Comment: Speci men Type: BLOOD SPECIMENOrdering Facility: [facility] Address: [address] [place] [address] Performed By: #### 5 7021-8 ####[facility]ITALWNCLIA [id number] [place] [address] [place] Hematocrit (Bld) [Volume fraction] 42.5 % Normal 36.0-46.0 [facility] Comment on above: Order Comment: Speci men Type: BLOOD SPECIMENOrdering Facility: [facility] Address: [address] [place] [address] Performed By: #### 5 7021-8 ####[facility] [id number] [place] [address] [place] Hemoglobin (Bld) [Mass/Vol] 14.3 g/dL Normal 11.5-15.5 [facility] Comment on above: Order Comment: Speci men Type: BLOOD SPECIMENOrdering Facility: [facility] Address: [address] [place] [address] Performed By: #### 5 7021-8 ####[facility]ITAL[facility] [id number] [place] [address] [place] Immature granulocytes (Bld) [#/Vol] 10*3/uL Normal <0.10 [facility] Comment on above: Order Comment: Speci men Type: BLOOD SPECIMENOrdering Facility: [facility] Address: [address] [place] [address] Performed By: #### 5 7021-8 ####[facility] [id number] [place] [address] [place] Immature granulocytes/100 WBC (Bld) 0.3 % Normal [facility] Comment on above: Order Comment: Speci men Type: BLOOD SPECIMENOrdering Facility: [facility] Address: [address] [place] [address] Performed By: #### 5 7021-8 ####[facility] [id number] [place] [address] [place] Lymphocytes (Bld) [#/Vol] 2.04 10*3/uL Normal 1.00-4.00 [facility] Comment on above: Order Comment: Speci men Type: BLOOD SPECIMENOrdering Facility: [facility] Address: [address] [place] [address] Performed By: #### 5 7021-8 ####[facility] CITYNCA [id number] [place] [address] [place] Lymphocytes/100 WBC (Bld) 31.3 % Normal [facility] Comment on above: Order Comment: Speci men Type: BLOOD SPECIMENOrdering Facility: [facility] Address: [address] [place] [address] Performed By: #### 5 7021-8 ####[facility] CITYNCLI [id number] [place] [address] [place] MCH (RBC) [Entitic mass] 30.6 pg Normal 26.0-34.0 [facility] Comment on above: Order Comment: Speci men Type: BLOOD SPECIMENOrdering Facility: [facility] Address: [address] [place] [address] Performed By: #### 5 7021-8 ####[facility] [id number] [place] [address] [place] MCHC (RBC) [Mass/Vol] 33.6 g/dL Normal 30.5-36.0 [facility] Comment on above: Order Comment: Speci men Type: BLOOD SPECIMENOrdering Facility: [facility] Address: [address] [place] [address] Performed By: #### 5 7021-8 ####[facility] [id number] [place] [address] [place] MCV (RBC) [Entitic vol] 91.0 fL Normal 80.0-100.0 [facility] Comment on above: Order Comment: Speci men Type: BLOOD SPECIMENOrdering Facility: [facility] Address: [address] [place] [address] Performed By: #### 5 7021-8 ####[facility] NANDINIA [id number] [place] [address] [place] Monocytes (Bld) [#/Vol] 0.56 10*3/uL Normal <0.87 [facility] Comment on above: Order Comment: Speci men Type: BLOOD SPECIMENOrdering Facility: [facility] Address: [address] [place] [address] Performed By: #### 5 7021-8 ####[facility] [id number] [place] [address] [place] Monocytes/100 WBC (Bld) 8.6 % Normal [facility] Comment on above: Order Comment: Speci men Type: BLOOD SPECIMENOrdering Facility: [facility] Address: [address] [place] [address] Performed By: #### 5 7021-8 ####[facility] [id number] [place] [address] [place] Neutrophils (Bld) [#/Vol] 3.82 10*3/uL Normal 1.45-7.50 [facility] Comment on above: Order Comment: Speci men Type: BLOOD SPECIMENOrdering Facility: [facility] Address: [address] [place] [address] Performed By: #### 5 7021-8 ####[facility] CITYNCL[facility] [id number] [place] [address] [place] Neutrophils/100 WBC (Bld) 58.7 % Normal [facility] Comment on above: Order Comment: Speci men Type: BLOOD SPECIMENOrdering Facility: [facility] Address: [address] [place] [address] Performed By: #### 5 7021-8 ####[facility] ROXANNEWBLASLIA [id number] [place] [address] [place] Nucleated RBC (Bld) [#/Vol] 10*3/uL Normal <0.01 [facility] Comment on above: Order Comment: Speci men Type: BLOOD SPECIMENOrdering Facility: [facility] Address: [address] [place] [address] Performed By: #### 5 7021-8 ####[facility] CITYBLASL[facility] [id number] [place] [address] [place] Nucleated RBC/100 WBC (Bld) [Ratio] 0.0 /100 WBC Normal [facility] Comment on above: Order Comment: Speci men Type: BLOOD SPECIMENOrdering Facility: [facility] Address: [address] [place] [address] Performed By: #### 5 7021-8 ####[facility] [id number] [place] [address] [place] Platelet mean volume (Bld) [Entitic vol] 9.2 fL Normal 9.0-12.7 [facility] Comment on above: Order Comment: Speci men Type: BLOOD SPECIMENOrdering Facility: [facility] Address: [address] [place] [address] Performed By: #### 5 7021-8 ####[facility] [id number] [place] [address] [place] Platelets (Bld) [#/Vol] 234 10*3/uL Normal 150-400 [facility] Comment on above: Order Comment: Speci men Type: BLOOD SPECIMENOrdering Facility: [facility] Address: [address] [place] [address] Performed By: #### 5 7021-8 ####[facility] CITY[facility]CL[facility] [id number] [place] [address] [place] RBC (Bld) [#/Vol] 4.67 10*6/uL Normal 3.90-5.20 [facility] Comment on above: Order Comment: Speci men Type: BLOOD SPECIMENOrdering Facility: [facility] Address: [address] [place] [address] Performed By: #### 5 7021-8 ####[facility] [id number] [place] [address] [place] WBC (Bld) [#/Vol] 6.51 10*3/uL Normal 3.70-11.00 [facility] Comment on above: Order Comment: Speci men Type: BLOOD SPECIMENOrdering Facility: [facility] Address: [address] [place] [address] Performed By: #### 5 7021-8 ####[facility] [id number] [address] [place] CT CHEST W IVCONon CT CHEST W IVCON * * *Final Report* * * DATE OF EXAM: Nov 04 2024 10:52AM [facility] 0539 - CT CHEST W IVCON / PROCEDURE REASON: Malignant neoplasm of unspecified part of unspecified bronchus or lung (HCC) * * * * Physician Interpretation * * * * EXAMINATION: CHEST CT WITH CONTRAST CLINICAL HISTORY: History of lung cancer Technique: Spiral CT acquisition of the chest from the thoracic inlet to the upper abdomen following IV contrast. MQ: [id number]_6 Contrast: 50 mL Omnipaque [address] Radiation dose: Integrated Dose-length product (DLP) for this visit = 226 mGy*cm CT Dose Reduction Employed: Automated exposure control(AEC) and iterative recon Comparison: CT chest 07/29/2024 RESULT: Limitations: None. Lines, tubes, and devices: None. Lung parenchyma and airways: Again noted are postoperative changes from a right middle lobectomy and right lower lobe wedge resection. Unchanged branched opacity in the medial right lower lung (6:130). No new suspicious pulmonary nodules. No acute airspace disease. Central airways are patent. Pleural space: No pleural effusion. No pleural thickening. Lower neck, lymph nodes, and mediastinum: Unchanged left thyroid nodule. No lymphadenopathy in the supraclavicular, axillary, mediastinal, or hilar regions. Stable 1.8 x 1 cm soft tissue density along the medial right heart border (5:125). Heart, pericardium, and thoracic vessels: The thoracic aorta and main pulmonary artery are normal in caliber. The cardiac chambers are normal in size. Coronary artery atherosclerotic calcifications are noted, although the study is not optimized for coronary assessment. No pericardial effusion or thickening. Bones and soft tissues: Degenerative disease of the thoracic spine. Unchanged sclerotic lesion in the vertebral body of T10. Upper abdomen: No abnormality in the imaged upper abdomen. Localizer images: No additional findings. IMPRESSION: 1. Unchanged branched opacity in the medial right lower lung, possibly due to mucus plugging 2. No new suspicious pulmonary nodules 3. Stable soft tissue density structure along the medial right heart border 4. Unchanged T10 vertebral body sclerotic lesion Dry Plasterer: [facility] Transcribe Date/Time: Nov 07 2024 1:03P Dictated by : ANITA BALDWIN MD This examination was interpreted and the report reviewed and electronically signed by: ANITA BALDWIN MD on Nov 07 2024 1:25PM EST [id number] Normal [facility] Comprehensive metabolic 2000 panelon 11-04-2024 Albumin [Mass/Vol] 4.7 g/dL Normal 3.9-4.9 [facility] Comment on above: Order Comment: Speci men Type: BLOOD SPECIMENOrdering Facility: [facility] Address: [address] [place] [address] Performed By: #### 2 4323-8 ####[facility] [id number] [place] [address] [place] ALP [Catalytic activity/Vol] 77 U/L Normal 34-123 [facility] Comment on above: Order Comment: Speci men Type: BLOOD SPECIMENOrdering Facility: [facility] Address: [address] [place] [address] Performed By: #### 2 4323-8 ####[facility] [id number] [place] [address] [place] ALT [Catalytic activity/Vol] 20 U/L Normal 7-38 [facility] Comment on above: Order Comment: Speci men Type: BLOOD SPECIMENOrdering Facility: [facility] Address: [address] [place] [address] Performed By: #### 2 4323-8 ####[facility] KIMMIE MILLTOWNCLIA [id number] [place] [address] [place] Anion gap [Moles/Vol] 12 mmol/L Normal 8-15 [facility] Comment on above: Order Comment: Speci men Type: BLOOD SPECIMENOrdering Facility: [facility] Address: [address] [place] [address] Performed By: #### 2 4323-8 ####[facility] [id number] [place] [address] [place] AST [Catalytic activity/Vol] 20 U/L Normal 13-35 [facility] Comment on above: Order Comment: Speci men Type: BLOOD SPECIMENOrdering Facility: [facility] Address: [address] [place] [address] Performed By: #### 2 4323-8 ####[facility]ITAL[facility] [id number] [place] [address] [place] Bilirubin [Mass/Vol] 0.4 mg/dL Normal 0.2-1.3 [facility] Comment on above: Order Comment: Speci men Type: BLOOD SPECIMENOrdering Facility: [facility] Address: [address] [place] [address] Performed By: #### 2 4323-8 ####[facility] MILLTOWNCLIA [id number] [place] [address] [place] Calcium [Mass/Vol] 9.3 mg/dL Normal 8.5-10.2 [facility] Comment on above: Order Comment: Speci men Type: BLOOD SPECIMENOrdering Facility: [facility] Address: [address] [place] [address] Performed By: #### 2 4323-8 ####[facility] [id number] [place] [address] [place] Chloride [Moles/Vol] 101 mmol/L Normal 98-107 [facility] Comment on above: Order Comment: Speci men Type: BLOOD SPECIMENOrdering Facility: [facility] Address: [address] [place] [address] Performed By: #### 2 4323-8 ####[facility] [id number] [place] [address] [place] CO2 [Moles/Vol] 29 mmol/L Normal 22-30 [facility] Comment on above: Order Comment: Speci men Type: BLOOD SPECIMENOrdering Facility: [facility] Address: [address] [place] [address] Performed By: #### 2 4323-8 ####[facility] [id number] [place] [address] [place] Creatinine [Mass/Vol] 0.59 mg/dL Normal 0.58-0.96 [facility] Comment on above: Order Comment: Speci men Type: BLOOD SPECIMENOrdering Facility: [facility] Address: [address] [place] [address] Performed By: #### 2 4323-8 ####[facility] [id number] [place] [address] [place] Creatinine and Glomerular filtration rate.predicted panel (S/P/Bld) 92 mL/min/1.73m??? Normal >=60 [facility] Comment on above: Order Comment: Speci men Type: BLOOD SPECIMENOrdering Facility: [facility] Address: [address] [place] [address] Result Comment: Guera mated Glomerular Filtration Rate (eGFR) is calculated using the 2020 CKD-EPI creatinine equation. This equation utilizes serum creatinine, sex, and age as parameters. The creatinine assay has traceable calibration to isotope dilution-mass spectrometry. Refer to KDIGO guidelines for clinical interpretation. In patients with unstable renal function, e.g. those with acute kidney injury, the eGFR may not accurately reflect actual GFR. Performed By: #### 2 4323-8 ####[facility] [id number] [place] [address] [place] Glucose [Mass/Vol] 125 mg/dL High 74-99 [facility] Comment on above: Order Comment: Funmilayo petersen Type: BLOOD SPECIMENOrdering Facility: [facility] Address: [address] [place] [address] Result Comment: The [place] [employer] (ADA) provides guidance for cutoff values for fasting glucose and random glucose. The ADA defines fasting as no caloric intake for at least 8 hours. Fasting plasma glucose results between 100 to 125 mg/dL indicate increased risk for diabetes (prediabetes). Fasting plasma glucose results greater than or equal to 126 mg/dL meet the criteria for diagnosis of diabetes. In the absence of unequivocal hyperglycemia, results should be confirmed by repeat testing. In a patient with classic symptoms of hyperglycemia or hyperglycemic crisis, random plasma glucose results greater than or equal to 200 mg/dL meet the criteria for diagnosis of diabetes. Reference: Standards of Medical Care in Diabetes 2016, [place] [employer]. Diabetes Care. 2016.39(Suppl 1). Performed By: #### 2 4323-8 ####[facility] [id number] [place] [address] [place] Potassium [Moles/Vol] 3.6 mmol/L Low 3.7-5.1 [facility] Comment on above: Order Comment: Funmilayo petersen Type: BLOOD SPECIMENOrdering Facility: [facility] Address: [address] [place] [address] Performed By: #### 2 4323-8 ####[facility] [id number] [place] [address] [place] Protein [Mass/Vol] 7.2 g/dL Normal 6.3-8.0 [facility] Comment on above: Order Comment: Speci men Type: BLOOD SPECIMENOrdering Facility: [facility] Address: [address] [place] [address] Performed By: #### 2 4323-8 ####[facility] [id number] [place] [address] [place] Sodium [Moles/Vol] 142 mmol/L Normal 136-144 [facility] Comment on above: Order Comment: Speci men Type: BLOOD SPECIMENOrdering Facility: [facility] Address: [address] [place] [address] Performed By: #### 2 4323-8 ####[facility] [id number] [place] [address] [place] Urea nitrogen [Mass/Vol] 21 mg/dL Normal 7-21 [facility] Comment on above: Order Comment: Speci men Type: BLOOD SPECIMENOrdering Facility: [facility] Address: [address] [place] [address] Performed By: #### 2 4323-8 ####[facility] [id number] [place] [address] [place] Cortis SerPl-mCncon 11-04-20 24 Cortisol [Mass/Vol] 7.4 ug/dL Normal 4.8-19.5 [facility] Comment on above: Order Comment: Speci men Type: BLOOD SPECIMENOrdering Facility: [facility] Address: [address] [place] [address] Result Comment: Prov ided reference range is from 6-10 AM sample collection time. Cortisol Reference Range: 6-10 AM = 4.8-19.5 ug/dL, 4-8 PM = 2.5-11.9 ug/dL Performed By: #### 2 143-6, 3016-3, 3024-7 ####[facility] LABIA [id number] [place] [address] [place] T4 Free SerPl-mCncon 024 Free T4 [Mass/Vol] 1.3 ng/dL Normal 0.9-1.7 [facility] Comment on above: Order Comment: Speci men Type: BLOOD SPECIMENOrdering Facility: [facility] Address: [address] [place] [address] Performed By: #### 2 143-6, 3016-3, 3024-7 ####[facility] [id number] [place] [address] [place] TSH SerPl-aCncon 11-04-2024 TSH Qn 1.050 m[IU]/L Normal 0.270-4.200 [facility] Comment on above: Order Comment: Speci men Type: BLOOD SPECIMENOrdering Facility: [facility] Address: [address] [place] [address] Performed By: #### 2 143-6, 3016-3, 3024-7 ####[facility] [id number] [address] [place] CNTHERAPYon 10-27-2024 CNTHERAPY OT/PT/Speech Visit (PTWS) LIDIA ORTIZ ([id number]) 1945 F Date Time Provider Department 10/27/24 3:00 PM KLEBER WILLINGHAM PTDULCE Date Time Provider Department Center 10/27/2024 3:00 PM [id number], BRENT PTWS Kimmie Oliveira Reason for Visit: PT Discharge [752] Primary Visit Diagnosis:Posterior tibial tendon dysfunction [M76.829] Other Visit Diagnosis:Osteoarthri tis of ankle and foot, unspecified laterality [M19.079] Allergies As of Date: 10/27/2024 Noted Allergy Reaction DEMEROL (MEPERIDINE (PF)) 12/06/2009 LACTOSE 10/10/2016 14 - Other: See Comments Comments: Bloating and abdominal pain Date Reviewed: 09/01/2024 Reviewed by: Eugenie Vogel LPN - Fully Assessed Prescriptions as of 10/27/2024 - metFORMIN ER (GLUMETZA) 500 mg 24 hr tablet Take 500 mg by mouth twice daily. - metoprolol succinate ER (TOPROL XL) 50 mg 24 hr tablet Take 50 mg by mouth once daily. - losartan (COZAAR) 100 mg tablet Take 100 mg by mouth once daily. - nitroglycerin sublingual (NITROQUICK) 0.4 mg SL tablet Take 0.4 mg by mouth as needed. - alendronate (FOSAMAX) 70 mg tablet Take 70 mg by mouth one time a week. - rosuvastatin 5 mg cpSP Take 5 mg by mouth every other day. - therapeutic multivitamin ORAL tablet Take 1 tablet by mouth once daily. - Coenzyme X79-Aodvlkj E 100-100 mg-unit cap Take 1 capsule by mouth once daily. - METROLOTION 0.75 % bid face Meds Comments as of 06/23/2022: 06/23/22 stopped all suppl;ement on Sunday on 06/18/22 Letter Text Normal [facility] [id number] 09-29-2024 [id number] HNO ID: [id number] Author: KLEBER WILLINGHAM PT Service: ? Author Type: Physical Therapist Type: [id number] Filed: 09/29/2024 14:53 Note Text: [facility] Physical Therapy Plan of Care Certification Patient Name: Lidia Ortiz : 1945 [facility] #: [id number] Date: 09/29/2024 To: Dory Anderson DPM From Therapist: Kleber Willingham PT RE: Patient Certification/ Recertification Your review, approval and electronic signature are required in order to comply with Payor: MEDICARE / Plan: MEDICARE A AND B / Product Type: Medicare / regulations. The identified Physical Therapy PLAN OF CARE for the patient is as follows: M19.079 Osteoarthritis of ankle and foot, unspecified laterality (primary encounter diagnosis) M76.829 Posterior tibial tendon dysfunction M19.079 Arthritis of midfoot, unspecified laterality PLAN OF CARE: Assessment: Lidia Ortiz presents with chief complaint of pain in B feet that interferes with walking (exercise) . The patient presents with impairments in ADL's, balance, gait, independence in exercise, overall function, and symptom management. PROMIS? (Patient-Reported Outcomes Measurement Information System) scores were reviewed and identified as within normal limits. Prognosis for therapy is Excellent due to: current objective clinical presentation, good overall health status, positive past response to therapy, within-session changes, good support system/ coping skills. The patient will benefit from skilled therapy services to meet the goals established for this plan of care as noted below. Goals for Episode of Care: established 09/29/24 Pt will be educated on proper wear schedule and care of custom biomechanical foot orthotics Pt will be provided with custom biomechanical B foot orthotics that improve foot and ankle biomechanics as intended with proper fit and function. Patient Goals: decrease pain and stay active Time Frame for Goals and Treatment : 11/10/24 Planned Interventions, Frequency, and Duration: Current Frequency: 1 visit Duration: 1 visit Total Number of Visits Planned: 2 (1 evaluation visit and 1 visit for fitting and worm picker) Planned Treatment Interventions: Orthosis / DME, Patient/Family/Caregi sarah Education, Self-shelter management (02076) PLAN FOR NEXT VISIT: Fitting and worm picker of custom foot orthotics Patient demonstrates good understanding of plan of care and treatment. The above goals and plan of care were discussed and agreed upon by patient/family. For further details regarding this patient refer to the Physical Therapy electronically documented visit dated 09/29/2024. Provider Attestation I have reviewed the treatment plan for Lidia Ortiz, [facility]# [id number] for the period of 09/29/24 -- 11/10/24, established on 09/29/2024. Signature certifies the need for therapy services. 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 - metoprolol succinate ER (TOPROL XL) 50 mg 24 hr tablet Take 50 mg by mouth once daily. - losartan (COZAAR) 100 mg tablet Take 100 mg by mouth once daily. - nitroglycerin sublingual (NITROQUICK) 0.4 mg SL tablet Take 0.4 mg by mouth as needed. - alendronate (FOSAMAX) 70 mg tablet Take 70 mg by mouth one time a week. - rosuvastatin 5 mg cpSP Take 5 mg by mouth every other day. - therapeutic multivitamin ORAL tablet Take 1 tablet by mouth once daily. - Coenzyme V73-Bizkcfk E 100-100 mg-unit cap Take 1 capsule by mouth once daily. - METROLOTION 0.75 % bid face Meds Comments as of 06/23/2022: 06/23/22 stopped all suppl;ement on Sunday on 06/18/22 Normal [facility] CNOVon 09-01-2024 CNOV Office Visit (PODIWS ) LIDIA ORTIZ ([id number]) 1945 F Date Time Provider Department 09/01/24 1:45 PM DORY ANDERSON PODIWS During your visit today, we recorded the following information about you: Eugenie Vogel LPN 09/01/2024 2:37 PM Signed AMB ROOMING INTAKE FLOWSHEET DATA Pain Pain Level: 8 Pain Location: Ankle-Right Description: Aching, Dull, Sharp Duration Units: Months Frequency: Intermittent Intervention/Comfort measure: Medication, Exercise, Other: See comment Comments: CBD Cream Patient presents with: Left Foot - New, Pain Right Foot - New, Pain TREVON Alatorre Matthew 09/01/2024 2:37 PM Signed Initial Podiatric Office Visit: Chief Complaint: This 79 year old female who presents with chief complaint:b/l foot pain HPI Patient presents to clinic with complaint of pain in b/l midfoot Patient states she has chronic pain in both feet. She states if she has been sitting for long duration, if she gets up to start walking, she has pain She treats the pain with topical nitro pads and/or use of tylenol. Patient is type II diabetic x 6 year. Patient does report intermittent numbness in both feet. PAIN EVALUATION 09/01/2024 0757 09/01/2024 1405 Pain Level: -- 8 Pain Location: Ankle-Right -- Description: Aching;Dull;Sharp -- Duration Units: Months -- Frequency: Continuous Intermittent Intervention/Comfort measure: Medication;Exercise;O ther: See comment -- Comments: CBD Cream -- Hemoglobin A1C (%) Date Value 01/05/2023 6.4 04/04/2022 6.8 PCP: Angy Bautista MD PAST MEDICAL HISTORY Diagnosis Date Diabetes type 2, controlled (HCC) Diverticulosis of colon (without mention of hemorrhage) Essential hypertension Hypercholesterolemia Malignant neoplasm of middle lobe of right lung (HCC) 06/26/2022 Rosacea Current Outpatient Medications Medication Sig metFORMIN ER (GLUMETZA) 500 mg 24 hr tablet Take 500 mg by mouth twice daily. metoprolol succinate ER (TOPROL XL) 50 mg 24 hr tablet Take 50 mg by mouth once daily. losartan (COZAAR) 100 mg tablet Take 100 mg by mouth once daily. nitroglycerin sublingual (NITROQUICK) 0.4 mg SL tablet Take 0.4 mg by mouth as needed. alendronate (FOSAMAX) 70 mg tablet Take 70 mg by mouth one time a week. rosuvastatin 5 mg cpSP Take 5 mg by mouth every other day. therapeutic multivitamin ORAL tablet Take 1 tablet by mouth once daily. Coenzyme X50-Hqbyaqx E 100-100 mg-unit cap Take 1 capsule by mouth once daily. METROLOTION 0.75 % bid face No current facility-administered medications for this visit. 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 REMOVAL OF LUNG,LOBECTOMY Right 06/26/2022 Right thoracoscopic middle lobectomy with wedge resection of lower lobe, lymph node dissection FAMILY HISTORY Problem Relation Age of Onset Diabetes Mother Hyperlipidemia Mother Cancer Mother Lymphoma Hypertension Father Macular Degen Father Hyperlipidemia Sister Heart Attack Brother Diabetes Maternal Grandfather Stroke Paternal Grandmother Social History Tobacco Use Smoking status: Former Current packs/day: 0.00 Types: Cigarettes Start date: 03/22/1967 Quit date: 03/22/1972 Years since quittin.4 Smokeless tobacco: Never Tobacco comments: social smoker Vaping Use Vaping status: Never Used Substance Use Topics Alcohol use: Yes Comment: ocas wine Drug use: No REVIEW OF SYSTEMS GENERAL: Negative for Malaise, significant weight loss, fever RESPIRATORY: Negative for cough, wheezing and shortness of breath CARDIOVASCULAR: Negative for chest pain, leg swelling and palpitations GI: Negative for abdominal discomfort, blood in stools or black stools and change in bowel habits : Negative for dysuria, frequency and incontinence MUSCULOSKELETAL: Negative for joint pain or swelling, back pain, and muscle pain. SKIN: Negative for lesions, rash, and itching. HEMATOLOGY/LYMPHOLOGY Negative for prolonged bleeding, bruising easily, and swollen nodes. ENDOCRINE: Negative for cold or heat intolerance, polyuria, polydipsia and goiter. NEURO: negative Physical Exam: Constitutional: Pt is a well developed 79 year old female who is alert, oriented and cooperative Eyes: Following during examination. No redness or drainage. Respiratory: RR normal and nonlabored. Even breathing. No evidence o (more content not included)... Normal [facility] XR FOOT 3V AP/LAT/OBL BILon 09-01-2024 XR FOOT 3V AP/LAT/OBL RATNA * * *Final Report* * * DATE OF EXAM: Sep 01 2024 1:56PM [id number] [id number] - XR FOOT 3V AP/LAT/OBL RATNA / PROCEDURE REASON: multiple diagnoses * * * * Physician Interpretation * * * * EXAMINATION / TECHNIQUE: XR FOOT 3V AP/LAT/OBL RATNA HISTORY: PT STATES RA IN BILAT FEET Bilateral foot pain Bilateral foot pain COMPARISON: None RESULT: No acute fracture or dislocation in either foot. There is bilateral pes planus and severe bilateral mid foot osteoarthritis. Small calcaneal enthesophytes bilaterally. No osseous erosion in either foot. IMPRESSION: Bilateral pes planus and severe bilateral mid foot osteoarthritis. Dry Plasterer: DEV Transcribe Date/Time: Sep 10 2024 4:40A Dictated by : CYRUS SILVER MD This examination was interpreted and the report reviewed and electronically signed by: CYRUS SILVER MD on Sep 10 2024 4:40AM EST [id number] Normal [facility] CNOVSPon 08-05-2024 CNOVSP Visit (SP) Office (HEMAWS) LIDIA ORTIZ ([id number]) 1945 F Date Time Provider Department 08/05/24 1:00 PM SARAHI SIMMONS During your visit today, we recorded the following information about you: Temperature Pulse Blood pressure Weight 97.2 degrees 61/minute 192/107 73.8 kg Sarahi Simmons APRN.[facility] 08/05/2024 1:44 PM Signed Chief Complaint Patient presents with: Established Patient HPI: Lidia Ortiz is a 79 year old female who presents here today for follow up lung cancer. Per Dr. Alvarez's previous note: H/o type 2 diabetes (metformin), hypertension and hyperlipidemia. She underwent evaluation for a cough which had been persistent for about 3 months. She had no complaints of dyspnea fever or wheezing. A CT of the chest was performed on 01/24/2022. There was a 3.5 x 3.8 x 4.3 cm mass in the right upper lobe. This abutted the right hilar region. There was no demonstrated pleural abnormality. Mediastinum and hilar regions appeared normal otherwise. There were multilevel degenerative changes of thoracic spine with a 1.4 cm area of sclerosis observed in the posterior aspect of the T9 or T12 vertebrae at the level of the pedicle on the right side for which correlation with bone scan was recommended. There was a 1 cm cyst in the medial inferior aspect of the right lobe of the liver. Patient underwent a CT-guided right lung biopsy on 02/06/2022. Pathology: -Non-small cell carcinoma, favor adenocarcinoma consistent with lung primary. Specimen was positive for TTF-1, CK7, CK 8 in rare cells that showed positivity for CK20. Complicated by pneumothorax that required chest tube. She underwent MRI of the brain which demonstrated no evidence of metastatic disease. PET scan with results noted. She also had an MRI of the thoracic spine. Images have been loaded. She underwent CT-guided biopsy of the suspicious lesion in T10 vertebral body on 03/09/2022. Pathology demonstrated fragments of sclerotic bone with bone marrow fibrosis and edema and no evidence of carcinoma. She underwent surgical evaluation at [facility]. Previous therapy: 1) Neoadjuvant carboplatin, pemetrexed and nivolumab. Underwent right VATS, right middle lobectomy, right lower lung wedge resection, mediastinal lymphadenectomy and intercostal nerve block on 06/26/2022. Pathology: A. Lymph node #7, excision: - Three (3) lymph nodes negative for neoplasm. B. Lymph node #10R, excision: - One (1) lymph node negative for neoplasm. C. Lymph node #10R, excision: - One (1) lymph node negative for neoplasm. D. Lymph node #11R, excision: - One (1) lymph node negative for neoplasm. E. Lymph node #11R, excision: - One (1) lymph node negative for neoplasm. F. Lymph node #11R, excision: - One (1) lymph node negative for neoplasm. G. Right lung, middle lobe, lobectomy: - Invasive adenocarcinoma, acinar predominant, 0.5 cm - Non-necrotizing granulomas. H. Right lung, lower lobe, wedge excision: - Patchy subpleural fibrosis with non-necrotizing granulomas, dystrophic calcium and reactive epithelial atypia. - Negative for neoplasm. I. Lymph node #4R, excision: - Three (3) lymph nodes negative for neoplasm. J. Lymph node #2R, excision: - Three (3) lymph nodes negative for neoplasm Occ. R surgical site pain. Does not occur daily. Every now and then. Appetite:Good. Wt. stable. Energy level:Very good. Denies fevers or recent illness. Resp:denies cough or sob Cardiac:denies chest pain/palpitations GI:denies abd pain, n/v, moving bowels regularly :denies dysuria/hematuria Extrem:denies any other pain, as above Neuro:denies symptoms of neuropathy Skin:denies rashes Heme:denies bleeding The ROS is otherwise negative. Past medical history, appointments, medications, allergies reviewed. No changes. EXAM: BP 192/107 Pulse 61 Temp 36.2 ?C (97.2 ?F) (Temporal) Wt 73.8 kg (162 lb 11.2 oz) SpO2 97% BMI 23.83 kg/m? APPEARANCE Well appearing, alert, in no acute distress, well-hydrated, well nourished. HEART RRR with normal S1 and S2, no murmurs LUNG clear to auscultation LYMPH NODES No cervical lymphadenopathy, No supraclavicular lymphadenopathy, and No axillary lymphadenopathy. ABDOMEN bowel sounds normoactive, soft, non-tender EXTREMITIES No edema NEURO Awake, alert and oriented x 3, Normal gait, and No involuntary motions. SKIN Skin color, texture, turgor normal, no suspicious rashes or lesions RADIOLOGY: CT chest 07/29/24: IMPRESSION: Status post right middle lobectomy and wedge resection in the right lower lobe. Similar scarring and suture line in the right lung with similar nodularity. Stable nodular density along the right heart border. Interval resolution of some of the previously mentioned new nodules in the right lower lobe. A few new nodular densities seen in the ante (more content not included)... Normal [facility] CBC W Auto Differential pane l (Bld)on 07-29-2024 Basophils (Bld) [#/Vol] 0.03 10*3/uL Normal <0.11 [facility] Comment on above: Order Comment: Speci men Type: BLOOD SPECIMENOrdering Facility: [facility] Address: [address] [place] [address] Performed By: #### 5 7021-8 ####[facility] [id number] [place] [address] [place] Basophils/100 WBC (Bld) 0.6 % Normal [facility] Comment on above: Order Comment: Funmilayo petersen Type: BLOOD SPECIMENOrdering Facility: [facility] Address: [address] [place] [address] Performed By: #### 5 7021-8 ####[facility] [id number] [place] [address] [place] Differential cell count method Nom (Bld) Auto Normal [facility] Comment on above: Order Comment: Wandai men Type: BLOOD SPECIMENOrdering Facility: [facility] Address: [address] [place] [address] Performed By: #### 5 7021-8 ####[facility] [id number] [place] [address] [place] Eosinophils (Bld) [#/Vol] 0.03 10*3/uL Normal <0.46 [facility] Comment on above: Order Comment: Speci men Type: BLOOD SPECIMENOrdering Facility: [facility] Address: [address] [place] [address] Performed By: #### 5 7021-8 ####[facility] LAYTONNCYUNIOR [id number] [place] [address] [place] Eosinophils/100 WBC (Bld) 0.6 % Normal [facility] Comment on above: Order Comment: Speci men Type: BLOOD SPECIMENOrdering Facility: [facility] Address: [address] [place] [address] Performed By: #### 5 7021-8 ####[facility] ROXANNEHOUSTONJUAN FRANCISCO [id number] [place] [address] [place] Erythrocyte distribution width (RBC) [Ratio] 12.7 % Normal 11.5-15.0 [facility] Comment on above: Order Comment: Speci men Type: BLOOD SPECIMENOrdering Facility: [facility] Address: [address] [place] [address] Performed By: #### 5 7021-8 ####[facility] ROXANNEHOUSTONNCDIONNAA [id number] [place] [address] [place] Hematocrit (Bld) [Volume fraction] 44.0 % Normal 36.0-46.0 [facility] Comment on above: Order Comment: Speci men Type: BLOOD SPECIMENOrdering Facility: [facility] Address: [address] [place] [address] Performed By: #### 5 7021-8 ####[facility] CITYFRANDYA [id number] [place] [address] [place] Hemoglobin (Bld) [Mass/Vol] 14.6 g/dL Normal 11.5-15.5 [facility] Comment on above: Order Comment: Speci men Type: BLOOD SPECIMENOrdering Facility: [facility] Address: [address] [place] [address] Performed By: #### 5 7021-8 ####[facility] MILLTOWNCLIA [id number] [place] [address] [place] Immature granulocytes (Bld) [#/Vol] 10*3/uL Normal <0.10 [facility] Comment on above: Order Comment: Speci men Type: BLOOD SPECIMENOrdering Facility: [facility] Address: [address] [place] [address] Performed By: #### 5 7021-8 ####[facility] HOSPITALWNCLIA [id number] [place] [address] [place] Immature granulocytes/100 WBC (Bld) 0.2 % Normal [facility] Comment on above: Order Comment: Speci men Type: BLOOD SPECIMENOrdering Facility: [facility] Address: [address] [place] [address] Performed By: #### 5 7021-8 ####[facility]ALL[facility] [id number] [place] [address] [place] Lymphocytes (Bld) [#/Vol] 2.04 10*3/uL Normal 1.00-4.00 [facility] Comment on above: Order Comment: Speci men Type: BLOOD SPECIMENOrdering Facility: [facility] Address: [address] [place] [address] Performed By: #### 5 7021-8 ####[facility] MILLWNCLIA [id number] [place] [address] [place] Lymphocytes/100 WBC (Bld) 37.5 % Normal [facility] Comment on above: Order Comment: Speci men Type: BLOOD SPECIMENOrdering Facility: [facility] Address: [address] [place] [address] Performed By: #### 5 7021-8 ####[facility] CITYNCLIA [id number] [place] [address] [place] MCH (RBC) [Entitic mass] 30.2 pg Normal 26.0-34.0 [facility] Comment on above: Order Comment: Speci men Type: BLOOD SPECIMENOrdering Facility: [facility] Address: [address] [place] [address] Performed By: #### 5 7021-8 ####[facility] CITYNCDIONNAA [id number] [place] [address] [place] MCHC (RBC) [Mass/Vol] 33.2 g/dL Normal 30.5-36.0 [facility] Comment on above: Order Comment: Speci men Type: BLOOD SPECIMENOrdering Facility: [facility] Address: [address] [place] [address] Performed By: #### 5 7021-8 ####[facility] CITYNCINTERMOUNTAIN [facility]ALTH[facility] [id number] [place] [address] [place] MCV (RBC) [Entitic vol] 91.1 fL Normal 80.0-100.0 [facility] Comment on above: Order Comment: Speci men Type: BLOOD SPECIMENOrdering Facility: [facility] Address: [address] [place] [address] Performed By: #### 5 7021-8 ####[facility] CITYNCLI [id number] [place] [address] [place] Monocytes (Bld) [#/Vol] 0.49 10*3/uL Normal <0.87 [facility] Comment on above: Order Comment: Speci men Type: BLOOD SPECIMENOrdering Facility: [facility] Address: [address] [place] [address] Performed By: #### 5 7021-8 ####[facility] CITYNCLIA [id number] [place] [address] [place] Monocytes/100 WBC (Bld) 9.0 % Normal [facility] Comment on above: Order Comment: Speci men Type: BLOOD SPECIMENOrdering Facility: [facility] Address: [address] [place] [address] Performed By: #### 5 7021-8 ####[facility] ROXANNEFAUSTINOLIA [id number] [place] [address] [place] Neutrophils (Bld) [#/Vol] 2.84 10*3/uL Normal 1.45-7.50 [facility] Comment on above: Order Comment: Speci men Type: BLOOD SPECIMENOrdering Facility: [facility] Address: [address] [place] [address] Performed By: #### 5 7021-8 ####[facility]ITALL[facility] [id number] [place] [address] [place] Neutrophils/100 WBC (Bld) 52.1 % Normal [facility] Comment on above: Order Comment: Speci men Type: BLOOD SPECIMENOrdering Facility: [facility] Address: [address] [place] [address] Performed By: #### 5 7021-8 ####[facility] [id number] [place] [address] [place] Nucleated RBC (Bld) [#/Vol] 10*3/uL Normal <0.01 [facility] Comment on above: Order Comment: Speci men Type: BLOOD SPECIMENOrdering Facility: [facility] Address: [address] [place] [address] Performed By: #### 5 7021-8 ####[facility]ALL[facility] [id number] [place] [address] [place] Nucleated RBC/100 WBC (Bld) [Ratio] 0.0 /100 WBC Normal [facility] Comment on above: Order Comment: Speci men Type: BLOOD SPECIMENOrdering Facility: [facility] Address: [address] [place] [address] Performed By: #### 5 7021-8 ####[facility] HOSPITALWNCLIA [id number] [place] [address] [place] Platelet mean volume (Bld) [Entitic vol] 9.4 fL Normal 9.0-12.7 [facility] Comment on above: Order Comment: Speci men Type: BLOOD SPECIMENOrdering Facility: [facility] Address: [address] [place] [address] Performed By: #### 5 7021-8 ####[facility] [id number] [place] [address] [place] Platelets (Bld) [#/Vol] 215 10*3/uL Normal 150-400 [facility] Comment on above: Order Comment: Speci men Type: BLOOD SPECIMENOrdering Facility: [facility] Address: [address] [place] [address] Performed By: #### 5 7021-8 ####[facility] HOSPITALA [id number] [place] [address] [place] RBC (Bld) [#/Vol] 4.83 10*6/uL Normal 3.90-5.20 [facility] Comment on above: Order Comment: Speci men Type: BLOOD SPECIMENOrdering Facility: [facility] Address: [address] [place] [address] Performed By: #### 5 7021-8 ####[facility]ALL[facility] [id number] [place] [address] [place] WBC (Bld) [#/Vol] 5.44 10*3/uL Normal 3.70-11.00 [facility] Comment on above: Order Comment: Speci men Type: BLOOD SPECIMENOrdering Facility: [facility] Address: [address] [place] [address] Performed By: #### 5 7021-8 ####[facility]PITALL[facility] [id number] [place] [address] [place] CHEST W IVCONon CT CHEST W IVCON * * *Final Report* * * DATE OF EXAM: Jul 29 2024 11:21AM [facility] 0539 - CT CHEST W IVCON / PROCEDURE REASON: multiple diagnoses * * * * Physician Interpretation * * * * EXAMINATION: CHEST CT WITH CONTRAST CLINICAL HISTORY: Lung nodule Technique: Spiral CT acquisition of the chest from the thoracic inlet to the upper abdomen following IV contrast. MQ: CTCW_6 Contrast: 50 mL Omnipaque [address] Radiation dose: Integrated Dose-length product (DLP) for this visit = 210 mGy*cm CT Dose Reduction Employed: Automated exposure control(AEC) and iterative recon Comparison: CT chest on 04/29/2024 RESULT: Limitations: None. Lines, tubes, and devices: None. Lung parenchyma and airways: Status post right middle lobectomy and wedge resection in the right lower lobe. The central airways are otherwise patent. There are similar scarring and suture line in the right lung with some nodularity, unchanged compared to prior study. Interval resolution of some of the previously mentioned new nodules in the right lower lobe, with a residual 2 mm nodule seen in the same region. Similar soft tissue density along the margin of the right heart, series 7 image 132. There appear to be a few new nodular densities in the anterior right lower lobe, series 7 image 133. Pleural space: No pleural effusion. No pleural thickening. Lower neck, lymph nodes, and mediastinum: The imaged thyroid gland is normal. No lymphadenopathy in the supraclavicular, axillary, mediastinal, or hilar regions, although a few subcentimeter short I is mediastinal lymph nodes are again visualized. Heart, pericardium, and thoracic vessels: Stable cardiac chambers, thoracic aorta and central pulmonary arteries. No pericardial effusion/thickening. Bones and soft tissues: T10 vertebral body sclerotic lesion/density is again demonstrated, grossly unchanged. The spine shows degenerative changes. Chest wall soft tissue remains unremarkable. Upper abdomen: Limited study through the upper abdomen demonstrates left kidney stones. Localizer images: No additional findings. IMPRESSION: Status post right middle lobectomy and wedge resection in the right lower lobe. Similar scarring and suture line in the right lung with similar nodularity. Stable nodular density along the right heart border. Interval resolution of some of the previously mentioned new nodules in the right lower lobe. A few new nodular densities seen in the anterior right lower lobe. Continued follow-up is suggested. No progressive lymphadenopathy. T10 vertebral body sclerotic lesion. Left kidney stones. Dry Plasterer: DEV Transcribe Date/Time: Aug 01 2024 8:26A Dictated by : DOREEN BETTENCOURT MD This examination was interpreted and the report reviewed and electronically signed by: DOREEN BETTENCOURT MD on Aug 04 2024 4:01PM EST [id number] N Normal [facility] Comprehensive metabolic 2000 panelon 07-29-2024 Albumin [Mass/Vol] 4.6 g/dL Normal 3.9-4.9 [facility] Comment on above: Order Comment: Funmilayo petersen Type: BLOOD SPECIMENOrdering Facility: [facility] Address: [address] [place] [address] Performed By: #### 2 4323-8 ####[facility] HOSPITALWINLIA [id number] [place] [address] [place] ALP [Catalytic activity/Vol] 77 U/L Normal 34-123 [facility] Comment on above: Order Comment: Funmilayo petersen Type: BLOOD SPECIMENOrdering Facility: [facility] Address: [address] [place] [address] Performed By: #### 2 4323-8 ####[facility] CITYNCLIA [id number] [place] [address] [place] ALT [Catalytic activity/Vol] 13 U/L Normal 7-38 [facility] Comment on above: Order Comment: Speci men Type: BLOOD SPECIMENOrdering Facility: [facility] Address: [address] [place] [address] Performed By: #### 2 4323-8 ####[facility] MILLWNCLIA [id number] [place] [address] [place] Anion gap [Moles/Vol] 10 mmol/L Normal 8-15 [facility] Comment on above: Order Comment: Speci men Type: BLOOD SPECIMENOrdering Facility: [facility] Address: [address] [place] [address] Performed By: #### 2 4323-8 ####[facility] ERICH [id number] [place] [address] [place] AST [Catalytic activity/Vol] 16 U/L Normal 13-35 [facility] Comment on above: Order Comment: Speci men Type: BLOOD SPECIMENOrdering Facility: [facility] Address: [address] [place] [address] Performed By: #### 2 4323-8 ####[facility] HOSPITALA [id number] [place] [address] [place] Bilirubin [Mass/Vol] 0.3 mg/dL Normal 0.2-1.3 [facility] Comment on above: Order Comment: Speci men Type: BLOOD SPECIMENOrdering Facility: [facility] Address: [address] [place] [address] Performed By: #### 2 4323-8 ####[facility] CITYFRANDYA [id number] [place] [address] [place] Calcium [Mass/Vol] 10.2 mg/dL Normal 8.5-10.2 [facility] Comment on above: Order Comment: Speci men Type: BLOOD SPECIMENOrdering Facility: [facility] Address: [address] [place] [address] Performed By: #### 2 4323-8 ####[facility] CITYNCLIA [id number] [place] [address] [place] Chloride [Moles/Vol] 100 mmol/L Normal 98-107 [facility] Comment on above: Order Comment: Speci men Type: BLOOD SPECIMENOrdering Facility: [facility] Address: [address] [place] [address] Performed By: #### 2 4323-8 ####[facility] CITYNCLIA [id number] [place] [address] [place] CO2 [Moles/Vol] 28 mmol/L Normal 22-30 [facility] Comment on above: Order Comment: Speci men Type: BLOOD SPECIMENOrdering Facility: [facility] Address: [address] [place] [address] Performed By: #### 2 4323-8 ####[facility]OSPITALLIA [id number] [place] [address] [place] Creatinine [Mass/Vol] 0.70 mg/dL Normal 0.58-0.96 [facility] Comment on above: Order Comment: Speci men Type: BLOOD SPECIMENOrdering Facility: [facility] Address: [address] [place] [address] Performed By: #### 2 4323-8 ####[facility] HOSPITALA [id number] [place] [address] [place] Creatinine and Glomerular filtration rate.predicted panel (S/P/Bld) 89 mL/min/1.73m??? Normal >=60 [facility] Comment on above: Order Comment: Speci men Type: BLOOD SPECIMENOrdering Facility: [facility] Address: [address] [place] [address] Result Comment: Guera mated Glomerular Filtration Rate (eGFR) is calculated using the 2020 CKD-EPI creatinine equation. This equation utilizes serum creatinine, sex, and age as parameters. The creatinine assay has traceable calibration to isotope dilution-mass spectrometry. Refer to KDIGO guidelines for clinical interpretation. In patients with unstable renal function, e.g. those with acute kidney injury, the eGFR may not accurately reflect actual GFR. Performed By: #### 2 4323-8 ####[facility] H[facility]ITALWNCLIA [id number] [place] [address] [place] Glucose [Mass/Vol] 134 mg/dL High 74-99 [facility] Comment on above: Order Comment: Speci men Type: BLOOD SPECIMENOrdering Facility: [facility] Address: [address] [place], [place] [address] Result Comment: The [place] Diabetes [employer] (ADA) provides guidance for cutoff values for fasting glucose and random glucose. The ADA defines fasting as no caloric intake for at least 8 hours. Fasting plasma glucose results between 100 to 125 mg/dL indicate increased risk for diabetes (prediabetes). Fasting plasma glucose results greater than or equal to 126 mg/dL meet the criteria for diagnosis of diabetes. In the absence of unequivocal hyperglycemia, results should be confirmed by repeat testing. In a patient with classic symptoms of hyperglycemia or hyperglycemic crisis, random plasma glucose results greater than or equal to 200 mg/dL meet the criteria for diagnosis of diabetes. Reference: Standards of Medical Care in Diabetes 2016, [place] [employer]. Diabetes Care. 2016.39(Suppl 1). Performed By: #### 2 4323-8 ####[facility] CITYBLASLIOlu [id number] [place] [address] [place] Potassium [Moles/Vol] 4.6 mmol/L Normal 3.7-5.1 [facility] Comment on above: Order Comment: Funmilayo petersen Type: BLOOD SPECIMENOrdering Facility: [facility] Address: [address] [place] [address] Performed By: #### 2 4323-8 ####[facility] HOSPITALWBLASLIA [id number] [place] [address] [place] Protein [Mass/Vol] 7.1 g/dL Normal 6.3-8.0 [facility] Comment on above: Order Comment: Speci men Type: BLOOD SPECIMENOrdering Facility: [facility] Address: [address] [place], [place] [address] Performed By: #### 2 4323-8 ####[facility] MILLWNCLIA [id number] [place] [address] [place] Sodium [Moles/Vol] 138 mmol/L Normal 136-144 [facility] Comment on above: Order Comment: Speci men Type: BLOOD SPECIMENOrdering Facility: [facility] Address: [address] [place] [address] Performed By: #### 2 4323-8 ####[facility] KIMMIE DE LA CRUZWBLASLIA [id number] [place] [address] [place] Urea nitrogen [Mass/Vol] 26 mg/dL High 7-21 [facility] Comment on above: Order Comment: Speci men Type: BLOOD SPECIMENOrdering Facility: [facility] Address: [address] [place] [address] Performed By: #### 2 4323-8 ####[facility] KIMMIE DE LA CRUZNCDIONNAA [id number] [place] [address] [place] Cortis SerPl-mCncon 07-29-20 24 Cortisol [Mass/Vol] 11.2 ug/dL Normal 4.8-19.5 [facility] Comment on above: Order Comment: Speci men Type: BLOOD SPECIMENOrdering Facility: [facility] Address: [address] [place] [address] Result Comment: Prov ided reference range is from 6-10 AM sample collection time. Cortisol Reference Range: 6-10 AM = 4.8-19.5 ug/dL, 4-8 PM = 2.5-11.9 ug/dL Performed By: #### 3 016-3, 7, 2143-04 ####[facility] LABCLIA [id number] [facility] [id number] [id number] [place] T4 Free SerPl-mCncon 024 Free T4 [Mass/Vol] 1.1 ng/dL Normal 0.9-1.7 [facility] Comment on above: Order Comment: Speci men Type: BLOOD SPECIMENOrdering Facility: [facility] Address: [address] [place] [address] Performed By: #### 3 016-3, 3023-7, 2143-04 ####[facility] LABCLIA [id number] [place] [address] [place] TSH SerPl-aCncon 07-29-2024 TSH Qn 0.945 m[IU]/L Normal 0.270-4.200 [facility] Comment on above: Order Comment: Speci men Type: BLOOD SPECIMENOrdering Facility: [facility] Address: [address] [place] [address] Performed By: #### 3 016-3, 3024-7, 2143-6 ####[facility] LABCLIA [id number] [place] [address] [place] Absolute lymphocyte countOrd ered By: Angy Bautista on 02-14-2024 Lymphocytes Auto (Unsp spec) [#/Vol] 1.32 10*3/uL 0.83-4.51 [facility] Automated lymphocyte count a s percentage of total leukocytesOrdered By: Angy Bautista on 02-14-2024 Lymphocytes/100 WBC Auto (Unsp spec) 28.6 % 19-41 [facility] Basophil percentageOrdered B y: Angy Bautista on 02-14-2024 Basophils/100 WBC (Bld) 0.9 % 0-1 [facility] Bilirubin [Mass/Vol] 0.40 mg/dL 0.20-1.00 [facility] Comment on above: For patients on eltr ombopag therapy, use of Dimension [place] TBIL is not recommended. Chloride [Moles/Vol] 107 mmol/L 98-107 [facility] Cholesterol [Mass/Vol] 151 mg/dL <200 [facility] Comment on above: <200 mg/dL Desirable 200-240 mg/dL Borderline >240 mg/dL High Risk Eosinophils/100 WBC (Bld) 0.4 % 0-5 [facility] Glucose [Mass/Vol] 137 mg/dL 74-106 [facility] Comment on above: Fasting Glucose resu lt greater than or equal to 126 mg/dL suggests DIABETES MELLITUS per A.D.A. criteria. Hemoglobin (Bld) [Mass/Vol] 13.9 g/dL 12.0-15.0 [facility] Monocytes/100 WBC (Bld) 6.7 % 0-10 [facility] Neutrophils (Bld) [#/Vol] 2.9 10*3/uL 2.0-7.7 [facility] Neutrophils/100 WBC (Bld) 63.0 % 47-70 [facility] Potassium [Moles/Vol] 4.2 mmol/L 3.5-5.1 [facility] Protein [Mass/Vol] 6.9 g/dL 6.4-8.2 [facility] Sodium [Moles/Vol] 141 mmol/L 136-145 [facility] Triglyceride [Mass/Vol] 72 mg/dL <199 [facility] Comment on above: The drugs N-Acetylcy steine and Metamizole may falsely depress this assay.Serum Triglycerides Reference Interval Normal <150 mg/dL Borderline high 150 - 199 mg/dL High 200 - 499 mg/dL Very High > or = 500 mg/dL WBC (Bld) [#/Vol] 4.6 10*3/uL 4.4-11.0 [facility] Determination of erythrocyte mean corpuscular volume (MCV)Ordered By: Angy Bautista on 02-14-2024 MCV (RBC) [Entitic vol] 92.4 fL 81-99 [facility] Erythrocyte distribution wid th ratioOrdered By: Angy Bautista on 02-14-2024 Erythrocyte distribution width (RBC) [Ratio] 12.8 % 11.6-14.6 [facility] Erythrocyte distribution wid th standard deviationOrdered By: Angy Bautista on 02-14-2024 Erythrocyte distribution width (RBC) [Entitic vol] 43.2 fL 35.1-43.9 [facility] Hematocrit Auto (Bld) [Volum e fraction]Ordered By: Angy Bautista on 02-14-2024 Hematocrit (Bld) [Volume fraction] 43.5 % 37-47 [facility] Immature granulocytes/100 WB C Auto (Bld)Ordered By: Angy Bautista on 02-14-2024 Immature granulocytes/100 WBC (Bld) 0.400 % 0.0-0.9 [facility] Comment on above: IG% - Immature Granu locytes (promyelocytes, myelocytes and metamyelocytes) > 1% indicates that a LEFT SHIFT is Present. Laboratory - Chemistry and C hemistry - challengeOrdered By: Angy Bautista on 02-14-2024 Albumin/Globulin [Mass ratio] 1.1 {ratio} 0.9-2.4 [facility] ALP [Catalytic activity/Vol] 59 U/L 45-117 [facility] ALT [Catalytic activity/Vol] 25 U/L 13-56 [facility] Cholesterol in HDL [Mass/Vol] 56 mg/dL >40 [facility] Comment on above: The drugs N-Acetylcy steine and Metamizole may falsely depress this assay. Reference Range HDL <40 mg/dL Low HDL Cholesterol HDL >or= 60 mg/dL High HDL Cholesterol Cholesterol in LDL [Mass/Vol] 81 mg/dL 0-130 [facility] CO2 [Moles/Vol] 28.0 mmol/L 21.0-32.0 [facility] Globulin (S) [Mass/Vol] 3.3 g/dL 2.2-4.2 [facility] Urea nitrogen/Creatinine [Mass ratio] 25.5 mg/mg 10-20 [facility] Laboratory - Hematology and Cell countsOrdered By: Angy Bautista on 02-14-2024 MCH (RBC) [Entitic mass] 29.5 pg 27.0-32.0 [facility] MCHC (RBC) [Mass/Vol] 32.0 g/dL 32-36 [facility] Nucleated RBC/100 WBC (Bld) [Ratio] 0 % 0-5 [facility] Platelet mean volume (Bld) [Entitic vol] 9.9 fL 6.2-12.0 [facility] Platelets (Bld) [#/Vol] 211 10*3/uL 150-450 [facility] No Panel InformationOrdered By: Angy Bautista on 02-14-2024 Estimated GFR (MDRD) Amer 91 mL/min >60 [facility] Comment on above: GFR Calc Estimated GFR (MDRD) Non-Af Amer 75 mL/min >60 [facility] Comment on above: Non- GFR Calc Urine Microalbumin/Creatinin e Ratio 33.0 mg/g CRE <30 [facility] Vitamin D 25-Hydroxy 81.9 ng/mL [facility] Comment on above: Vitamin D 25(OH) Sta tus Range Deficiency <20 ng/mL (50nmol/L) Insufficiency 20 - 30 ng/mL (50 - 75 nmol/L) Sufficiency 30 - 100 ng/mL (75 - 250 nmol/L) Toxicity >100 ng/mL (>250 nmol/L) VLDL Cholesterol 14 mg/dL 5-40 [facility] RBC Auto (Bld) [#/Vol]Ordere d By: Angy Bautista on 02-14-2024 RBC (Bld) [#/Vol] 4.71 10*6/uL 4.2-5.4 [facility] Serum or plasma calcium jackie urement (mass/volume)Ordered By: Angy Bautista on 02-14-2024 Calcium [Mass/Vol] 8.9 mg/dL 8.5-10.1 [facility] Serum or plasma creatinine m easurement (mass/volume)Ordered By: Angy Bautista on 02-14-2024 Creatinine [Mass/Vol] 0.78 mg/dL 0.55-1.02 [facility] Comment on above: The validity of the calculated GFR & GFRAA in patients over 70 years has not been determined. Clinical correlation is essential. Serum or plasma urea nitroge n measurement (mass/volume)Ordered By: Angy Bautista on 02-14-2024 Urea nitrogen [Mass/Vol] 20 mg/dL 7-18 [facility] Thin prep Papanicolaou smear with manual screeningOrdered By: Angy Bautista on 02-14-2024 Thin prep Papanicolaou smear with manual screening 3.6 g/dL 3.2-5.0 [facility] Thin prep Papanicolaou smear with manual screening 24 U/L 15-37 [facility] Thin prep Papanicolaou smear with manual screening 6 5-15 [facility] Thin prep Papanicolaou smear with manual screening 27.3 mg/L NO RANGE EST. [facility] Urine creatinine measurement (mass/volume)Ordered By: Angy Bautista on 02-14-2024 Creatinine (U) [Mass/Vol] 82.80 mg/dL NO RANGE EST. [facility] CT CHEST W IVCONon 3 [facility] NM PET/CT SKULL-THIGH SUBQon 01-30-2023 NM PET/CT SKULL-THIGH SUBQ * * *Final Report* * * DATE OF EXAM: Jan 30 2023 9:52AM MDP 0063 - NM PET/CT SKULL-THIGH SUBQ / PROCEDURE REASON: multiple diagnoses * * * * Physician Interpretation * * * * EXAMINATION: REGIONAL FDG PET/CT SCAN: (01/30/2023 5:17 PM) HISTORY: 77 years old Female with Malignant neoplasm of unspecified part of unspecified bronchus or lung (HCC), Chest pain, unspecified type Cardiac murmur. INDICATION: Study performed for subsequent treatment strategy. TECHNIQUE: F18-FDG administered IV was followed about 60 minutes later by PET imaging from skull base to proximal thigh. Free breathing low dose CT was performed without contrast for attenuation correction and anatomic localization. FDG radionuclide dose: 10.[address] Dose-Length Product (DLP): 288 mGy*cm CT Dose Reduction Employed: Automatic exposure control used (AED) COMPARISON: PET/CT dated 02/21/2022 CORRELATION: CT scan of the chest dated 01/05/2023. RESULT: For reference maximum SUV values: Mediastinal blood pool 2.5. Background Liver: 3 NECK: Physiologic uptake seen in the visualized brain, parapharyngeal soft tissues, base of tongue, vocal cords, and salivary glands. No hypermetabolic cervical lymphadenopathy or hypermetabolic masses. No focal hypermetabolic thyroid lesion. CHEST: Physiologic uptake in the heart and mediastinal blood pool. Lungs, tracheobronchial tree and pleura: Interval resection of the right lung lesion/malignancy. Hypermetabolic mass noted in the previous PET CT scan is not identified. Persistent mild, stable nodularity along the suture line without significant FDG uptake. Small focus of nonspecific mildly increased uptake along the anteromedial chest wall, with maximum SUV of 2, corresponding to small amount of pleural thickening in this region (series 3, image 108); stable compared with the recent CT scan. Interval development of small non hypermetabolic right pleural effusion. Please note that PET/CT is not sensitive for pulmonary nodules less than 8 mm. Mediastinum and Lymph nodes: No hypermetabolic hilar or mediastinal lymphadenopathy. No mediastinal mass. Persistent small soft tissue density adjacent to the right cardiac border measuring approximately 2 x 1.4 cm (series 3, image 137), without significant FDG uptake. Chest wall and axilla: No hypermetabolic lesions. ABDOMEN AND PELVIS: Physiologic uptake seen in the and GI tracts. Liver: Mildly heterogeneous uptake without focal hypermetabolic mass lesions.. Stable appearing low-attenuation density in the hepatic segment 1, measuring approximately 9 mm without significant FDG uptake, likely a small cyst. Biliary: No bile duct dilation. Spleen: No hypermetabolic mass. No splenomegaly. Pancreas: No hypermetabolic mass. Adrenals: No hypermetabolic lesions. Kidneys: No hydronephrosis, or hypermetabolic lesions. Nonobstructing left renal calculi. GI tract: No dilation or wall thickening. Lymph nodes: No hypermetabolic abdominal or pelvic lymphadenopathy. Mesentery/Peritoneum: No ascites or hypermetabolic mass lesions. Vasculature: Vascular patency cannot be assessed due to lack of IV contrast. Pelvis: No hypermetabolic mass, ascites or fluid collection. BONES AND EXTREMITIES: No suspicious FDG avid foci are detected. The imaged portions of the skeleton disclose age-related degenerative changes. Stable appearing sclerotic lesion in the right aspect of T10, without significant FDG uptake. - IMPRESSION: 1. NECK: No FDG avid neoplastic process. No mass, adenopathy, or fluid collection. 2. CHEST: Interval resection of the previously noted hypermetabolic right upper lobe lung mass. Nonspecific mild nodularity along the suture lines in the right upper lung without significant FDG uptake. The findings appear similar to the previous diagnostic CT scan of the chest dated 01/05/2023. CT scan of the chest is recommended for follow-up of this finding. Nonspecific mild uptake along a focally prominent region of the anterior right pleura pleura; stable compared to the previous CT scan of the chest and may be related to postsurgical healing, however presence of recurrent disease in this region cannot be entirely excluded. The findings appear similar to the previous diagnostic CT scan of the chest dated 01/05/2023. CT scan of the chest is recommended for follow-up of this finding. Persistent small soft tissue density adjacent to the right cardiac border, without FDG uptake. The findings appear similar to the previous diagnostic CT scan of the chest dated 01/05/2023. CT scan of the chest is recommended for follow-up of this finding. Interval development of small non hypermetabolic right pleural effusion. 3. ABDOMEN/PELVIS: No FDG avid neoplastic process. No mass, adenopathy, or fluid collection. 4. EXTREMITIES/SKELETON: Stable nonhypermetabolic sclerotic lesion in T10 vertebra. Dry Plasterer: (more content not included)... Normal [facility] PET/CT SKULL-THIGH SUBSEQ UENTon 01-30-[address] [facility] [address] CHEST W IVCONon [facility] XR Chest PA and Lateralon IMPRESSION: Postsurgical changes in the right lung, as described. No pneumothorax. Interval resolution of subcutaneous emphysema. Dry Plasterer: DEV Transcribe Date/Time: Oct 03 2022 1:57P Dictated by : LAZARUS COOPER MD This examination was interpreted and the report reviewed and electronically signed by: LAZARUS COOPER MD on Oct 03 2022 1:58PM [facility] * * *Final Report* * * DATE OF EXAM: Oct 03 2022 12:51PM WOX [id number] - XR CHEST 2V FRONTAL/LAT / PROCEDURE REASON: Malignant neoplasm of upper lobe of right lung (HCC) * * * * Physician Interpretation * * * * EXAMINATION: CHEST RADIOGRAPH (2 VIEW FRONTAL & LATERAL) CLINICAL HISTORY: Malignant neoplasm of upper lobe of right lung (HCC) MQ: XC2_6 EXAM DATE/TIME: 10/03/2022 12:51 PM COMPARISON: Chest x-ray dated July 07, 2022 RESULT: Lines, tubes, and devices: None. Lungs and pleura: Stable postsurgical changes within the right lung including right middle lobectomy and right lower lobe wedge resection with associated volume loss and postsurgical material in the right hilar region. Stable mild thickening of the right fissure. No discernible pneumothorax. Left lung clear. Cardiomediastinal silhouette: Stable cardiomediastinal silhouette. Bones and soft tissues: Interval resolution of right chest wall subcutaneous emphysema. Degenerative changes in the spine. DIVISION OF RADIOLOGY Provider, Kacie Stephanie Shah - 10/03/2022 * * *Final Report* * * DATE OF EXAM: Oct 03 2022 12:51PM WOX 5291 - XR CHEST 2V FRONTAL/LAT / PROCEDURE REASON: Malignant neoplasm of upper lobe of right lung (HCC) * * * * Physician Interpretation * * * * EXAMINATION: CHEST RADIOGRAPH (2 VIEW FRONTAL & LATERAL) CLINICAL HISTORY: Malignant neoplasm of upper lobe of right lung (HCC) MQ: XC2_6 EXAM DATE/TIME: 10/03/2022 12:51 PM COMPARISON: Chest x-ray dated July 07, 2022 RESULT: Lines, tubes, and devices: None. Lungs and pleura: Stable postsurgical changes within the right lung including right middle lobectomy and right lower lobe wedge resection with associated volume loss and postsurgical material in the right hilar region. Stable mild thickening of the right fissure. No discernible pneumothorax. Left lung clear. Cardiomediastinal silhouette: Stable cardiomediastinal silhouette. Bones and soft tissues: Interval resolution of right chest wall subcutaneous emphysema. Degenerative changes in the spine. IMPRESSION IMPRESSION: Postsurgical changes in the right lung, as described. No pneumothorax. Interval resolution of subcutaneous emphysema. Dry Plasterer: PSCB Transcribe Date/Time: Oct 03 2022 1:57P Dictated by : LAZARUS COOPER MD This examination was interpreted and the report reviewed and electronically signed by: LAZARUS COOPER MD on Oct 03 2022 1:58PM EST [facility] Radiology Study observation (narrative) [facility] XR Chest PA and LateralOrder ed By: [facility] Provider on 10-03-2022 [facility] Absolute lymphocyte counton 08-07-2022 Lymphocytes Auto (Unsp spec) [#/Vol] 1.28 10*3/uL 0.83-4.51 [facility] Work Phone: Basophil percentageon 2021 Basophils/100 WBC (Bld) 0.5 % 0-1 [facility] Work Phone: Chloride [Moles/Vol] 105 mmol/L 98-107 [facility] Work Phone: Eosinophils/100 WBC (Bld) 0.7 % 0-5 [facility] Work Phone: Glucose [Mass/Vol] 102 mg/dL 74-106 [facility] Work Phone: Comment on above: Fasting Glucose resu lt from 100 to 125 mg/dL suggests IMPAIRED HOMEOSTASIS per A.D.A. criteria. Neutrophils (Bld) [#/Vol] 2.5 10*3/uL 2.0-7.7 [facility] Work Phone: Neutrophils/100 WBC (Bld) 56.9 % 47-70 [facility] Work Phone: Potassium [Moles/Vol] 4.0 mmol/L 3.5-5.1 [facility] Work Phone: Comment on above: Slight Hemolysis, Re sult may be falsely increased. Sodium [Moles/Vol] 140 mmol/L 136-145 [facility] Work Phone: WBC (Bld) [#/Vol] 4.3 10*3/uL 4.4-11.0 [facility] Work Phone: Blood erythrocytes count (nu mber/volume)on 08-07-2022 RBC (Bld) [#/Vol] 4.27 10*6/uL 4.2-5.4 [facility] Work Phone: Blood hemoglobin measurement (mass/volume)on 08-07-2022 Hemoglobin (Bld) [Mass/Vol] 13.8 g/dL 12.0-15.0 [facility] Work Phone: Blood lymphocytes/100 leukoc yteson 08-07-2022 Lymphocytes/100 WBC (Bld) 29.8 % 19-41 [facility] Work Phone: Blood monocytes/100 leukocyt eson 08-07-2022 Monocytes/100 WBC (Bld) 11.9 % 0-10 [facility] Work Phone: Blood platelet mean volumeon 08-07-2022 Platelet mean volume (Bld) [Entitic vol] 9.6 fL 6.2-12.0 [facility] Work Phone: Determination of erythrocyte mean corpuscular volume (MCV)on 09-19-2022 MCV (RBC) [Entitic vol] 95.6 fL 81-99 [facility] Work Phone: Hematocrit Auto (Bld) [Volum e fraction]on 08-07-2022 Hematocrit (Bld) [Volume fraction] 40.8 % 37-47 [facility] Work Phone: Laboratory - Chemistry and C hemistry - challengeon 08-07-2022 CO2 [Moles/Vol] 29.0 mmol/L 21.0-32.0 [facility] Work Phone: Urea nitrogen/Creatinine [Mass ratio] 31.1 mg/mg 10-20 [facility] Work Phone: Laboratory - Hematology and Cell countson 08-07-2022 Erythrocyte distribution width (RBC) [Entitic vol] 43.6 fL 35.1-43.9 [facility] Work Phone: Erythrocyte distribution width (RBC) [Ratio] 12.4 % 11.6-14.6 [facility] Work Phone: Immature granulocytes/100 WBC (Bld) 0.200 % 0.0-0.9 [facility] Work Phone: Comment on above: IG% - Immature Granu locytes (promyelocytes, myelocytes and metamyelocytes) > 1% indicates that a LEFT SHIFT is Present. MCH (RBC) [Entitic mass] 32.3 pg 27.0-32.0 [facility] Work Phone: Nucleated RBC/100 WBC (Bld) [Ratio] 0 % 0-5 [facility] Work Phone: MCHC Auto (RBC) [Mass/Vol]on 08-07-2022 MCHC (RBC) [Mass/Vol] 33.8 g/dL 32-[address] Work Phone: No Panel Informationon 08-07 Troponin I High Sensitivity 7 pg/mL 3.0-54.0 [facility] Work Phone: Comment on above: Please Note: [place] t Units and Gender Specific Reference Ranges. For more information see Policy Stat Procedure [place] High Sensitivity Troponin (TNIH) and attachments. D-Dimer Quantitative (PE/DVT) 1.41 FEU/ug/m 0.27-0.49 [facility] Work Phone: Comment on above: D-Dimer ELEVATED (>0 .49): Additional studies and clinicalassessments are indicated to conclude diagnosis of:Deep Vein Thrombosis (DVT) or Pulmonary Embolism (PE)CRITICAL VALUE VERIFIED. CALLED TO DEJON NARANJO08/07/22 1614 Sean Flores.RESULTS READ BACK BY SAME . Estimated Creatinine Clearance Calc 49.69 ml/min [facility] Work Phone: Estimated GFR (MDRD) Amer 115 mL/min >60 [facility] Work Phone: Comment on above: GFR Calc Estimated GFR (MDRD) Non-Af Amer 95 mL/min >60 [facility] Work Phone: Comment on above: Non- GFR Calc Platelets bldon 08-07-2022 Platelets (Bld) [#/Vol] 253 10*3/uL 150-450 [facility] Work Phone: Serum or plasma calcium jackie urement (mass/volume)on 08-07-2022 Calcium [Mass/Vol] 9.7 mg/dL 8.5-10.1 [facility] Work Phone: Serum or plasma creatinine m easurement (mass/volume)on 08-07-2022 Creatinine [Mass/Vol] 0.64 mg/dL 0.55-1.02 [facility] Work Phone: Comment on above: The validity of the calculated GFR & GFRAA in patients over 70 years has not been determined. Clinical correlation is essential. Serum or plasma urea nitroge n measurement (mass/volume)on 08-07-2022 Urea nitrogen [Mass/Vol] 20 mg/dL 7-18 [facility] Work Phone: Thin prep Papanicolaou smear with manual screeningon 08-07-2022 Thin prep Papanicolaou smear with manual screening 6 5-15 [facility] Work Phone: Laboratory - Microbiology an d Antimicrobial susceptibilityon 06-23-2022 S. aureus and MRSA panel RENZO+probe (Nose) Negative Negative [facility] Provider Note - ED v3on 05-19 Provider Note - ED v3 Provider Note: Chart Review: HISTORY OF PRESENTING ILLNESS LIDIA is a 77 year old Female and was seen by me at 03-Jun-2022 10:15. Triage Information: Most recent Vital Sign Value Date PAST MEDICAL HISTORY CURRENT OR FORMER SUBSTANCE USE: Tobacco/Nicotine Use: never smoker Alcohol Use: denies ALLERGIES/INTOLERANCE S: Allergy Allergen: Demerol Type: Drug Reaction: Rash Allergen: Cipro Type: Drug Reaction: Rash Intolerance Allergen: Lactose Intolerance Type: Food Reaction: Diarrhea HEALTH HISTORY: No documented data. OUTPATIENT MEDICATIONS: Home Medications Review Status for Reconciliation: Complete Med Status: Patient Currently Takes Medications Drug Name: lisinopril 20 mg oral tablet Instructions: 1 tab(s) orally once a day Drug Name: metFORMIN Instructions: null Drug Name: rosuvastatin Instructions: null SIGNIFICANT EVENTS: No documented data. CRITICAL CARE VITAL SIGNS: T PRBP SpO2O2(LPM) %FiO2 Method 03-Jun-2022 10:12:[id number]/ 84 98 MDM MDM/ED COURSE: This note was dictated using [email or web address]. This note may contain spelling, grammar, formatting erros and misrecognization of what was dictated. CC: Painful urination HPI: Historian: Patient The patient presents today with symptoms starting 2 days ago. Symptoms include see ROS and Negative for see ROS Aggravating factors include urinating. Relieving factors include denies. The patient has had similar symptoms before with a UTI and treated with Macrobid. REVIEW OF SYSTEMS (+)=Complains of (-)= Denies General: (-) Weakness, (-) Fatigue, (-)Fever. Pulmonary: (-) Cough, (-)Dyspnea, (-)Wheezing. Cardiac: (-) Chest pain, (-)Edema Gastrointestinal: (-)Nausea, (-)Vomiting, (-)Diarrhea, (+ lower cramping)Abdominal Pain. Urinary:(+) Frequency, (+)Urgency, (+)Pain during urination, (-)Hematuria (-) back pain Psychological: (-)Anxiety, (-)Depression, (-)Thoughts or plan of self-harm. PHYSICAL EXAM Patient in seated position. Appearance well groomed, alert and orientated, no acute distress, speech clear, and evenly paced, good historian, cooperative. Head: Normocephalic. Skin: Skin is warm and dry, no rashes, edema, bruising or lesion, appropriate color for ethnicity. Cardiac: Regular S1 S2 no murmur, gallop/rub noted Lungs: Inspection +symmetric expansion, Patient sitting, respirations full, easy, and unlabored, skin color appropriate for ethnicity, pink, no cyanosis, or lesions noted. Auscultation Patient supine clear to auscultation bilaterally all vesicular pelayo. Tracheal/bronchial- loud high pitch. Bronchovesicular moderate pitch. Abdomen: Inspection: Shape: flat Muscle: normal; no ridge noted. Masses: No masses noted bilaterally. Auscultation: Bowel sounds: normal high pitched, gurgling, occurring irregular 5-30 seconds. Percussion: CVA: thud with no pain noted Palpation: Light and Deep: abdomen soft, no guarding, rigidity, large masses, or tenderness noted. Diagnostic: Urinalysis without microscope Glucose negative Bilirubin 1+ Ketone trace Specific [place] 1.025 Blood 2+ pH 5.5 Protein 2+ Urobilinogen 0.2 Nitrite positive Leukocytes 3+ Patient Impression/Plan/ Education and Follow up: Exam consistent with UTI, although reviewed other potential etiologies. No CVA tenderness, is afebrile, and no other red flags on exam. Patient will be discharged home with oral antibiotics. Instructed to begin Macrobid JESUS (reviewed expectations and common side effects of treatment), and complete full course of medication, even if symptoms resolve more quickly. Also advised to push fluids, rest, and to use appropriate over the counter medications for management of symptoms - pyridium may be helpful. Advised to follow-up with primary care provider or ER JESUS if develops fever, malaise, back pain, abdominal pain, nausea/vomiting, etc, or if additional concerns/red flags develop. Reviewed strategies for UTI prevention in the future. Patient agreed with plan of care; questions were encouraged and answered. DISPOSITION Diagnosis/Annotation: ED Dx Name:Acute cystitis Code:N30.00 Disposition: discharged Type: home CONSULT CRITICAL CARE TIME Is this a critically ill patient: no Electronic Signatures: Korin Colbert ([employer]PERVISOR) (Signed 03-Jun-2022 10:32) Authored: HPI, PMH, PE, Results/Vital Signs, MDM/ED Course, Clinical Impression, Attestation, Chart Review, Scores Last Updated: 03-Jun-2022 10:32 by Korin Colbert ([employer] SUPERVISOR) Normal [facility] CREATININE, BLOOD (POC)on Creatinine [Mass/Vol] 0.70 mg/dL 0.7 - 1.4 mg/dL [facility] GFR/1.73 sq M.predicted among non-blacks MDRD (S/P/Bld) [Vol rate/Area] mL/min/{1.73_m2} [facility] CT CHEST W IVCONon [facility] BRONCHOSCOPYon 03-29-2022 [facility] GLUCOSE, BLOOD (POC)on 03-29 Glucose [Mass/Vol] 121 mg/dL Abnormal 74 - 99 mg/dL [facility] MRI SPINE THORACIC W/ + W/O CONTRASTon 02-28-2022 MRI SPINE THORACIC W/ + W/O CONTRAST ORIGINAL EXAMINATION: MRI OF THE THORACIC SPINE WITHOUT AND WITH CONTRAST 02/22/2022 10:19 am TECHNIQUE: Multiplanar multisequence MRI of the thoracic spine was performed without and with the administration of intravenous contrast. COMPARISON: None HISTORY: ORDERING SYSTEM PROVIDED HISTORY: Reason for Exam: abnormal positron emission tomography (pet) scan, non FDG avid T10 sclerosis. Non-small cell lung cancer FINDINGS: BONES/ALIGNMENT: Normal alignment. Preserved vertebral body heights. Intervertebral disc heights are preserved. T3 vertebral body 1 cm focus of T1 hypointense enhancing STIR hyperintensity on the right. Similar smaller focus at T9 vertebral body on the left. Right T10 vertebral body/pedicle nonexpansile 3.1 x 1.9 cm focus with central edema/enhancement, surrounding sclerosis and further rim of edema/enhancement. No obvious extraosseous or epidural invasion. On sagittal postcontrast sequence, there appears to be enhancement of L2 vertebral body, felt to be artifactual. SPINAL CORD: No abnormal cord signal. SOFT TISSUES: No abnormal enhancement of the thoracic spine soft tissues. No abnormal enhancing paraspinal or epidural mass identified. DEGENERATIVE CHANGES: Mild multilevel degenerative endplate changes. No significant (i.e. Moderate or severe) spinal canal or foraminal stenosis. OTHER: Partially visualized right perihilar masslike consolidation. Small benign hepatic and left renal cysts. Distal extrahepatic common duct measures 7 mm, within normal limits for patient's age. IMPRESSION: Irregular enhancing right T10 vertebral body/pedicle lesion with central and peripheral edema is suspicious for metastatic disease given the diagnosis of non-small cell lung carcinoma. No comparison was available at time of dictation. Additional ovoid T1 hypointense, STIR hyperintense and enhancing foci on the right at T3 and on the left at T9 are indeterminate and may reflect atypical hemangiomas versus metastatic disease. Correlate with PET-CT. No evidence of cord compression. No abnormal enhancing epidural disease. Right perihilar pulmonary masslike consolidation, probably the known primary. Correlate with recent PET-CT. I have personally reviewed the images of this examination and agree with the resident's findings and interpretation. Interpreted by: Marco Antonio Walker Preliminary Report By: Moshe Samson Electronically signed By Marco Antonio Walker Dictated Date: 02/22/2022 11:19:56 AM Prelim Date: 02/28/2022 9:02:47 AM Sign Date: 02/28/2022 9:02:47 AM Ordering Provider: ROHAN Tejeda [facility] ([place]) MRI BRAIN W/ + W/O CONTRASTo n 02-22-2022 MRI BRAIN W/ + W/O CONTRAST ORIGINAL HISTORY: Lung nodule COMPARISON: No TECHNIQUE: 1. Sagittal and axial T1-weighted images. 2. Axial FLAIR images. 3. Axial T2-weighted and T2*-weighted images. 4. Axial diffusion-weighted images with ADC map. 5. Axial, sagittal and coronal T1-weighted images following uncomplicated administration of intravenous gadolinium contrast. FINDINGS: There is a small chronic right cerebellar infarct. The ventricles and sulci are otherwise mildly enlarged. There are no abnormal intra or extra-axial fluid collections. There are mild scattered punctate T2 hyperintensities in the cerebral white matter, most prominently in the periventricular regions. There is no abnormal restriction of diffusion. There is no abnormal enhancement of the brain or its coverings. The orbital contents are normal in appearance. IMPRESSION: Volume loss, mild small vessel ischemic disease, and a small chronic right cerebellar infarct. Interpreted by: Syd Rader MD Preliminary Report By: Syd Rader MD Electronically signed By Syd Rader MD Dictated Date: 02/22/2022 10:28:27 AM Prelim Date: 02/22/2022 10:30:25 AM Sign Date: 02/22/2022 10:30:25 AM Ordering Provider: ROHAN Tejeda [facility] ([place]) NM PET/CT SKULL-THIGH INITon 02-21-2022 NM PET/CT SKULL-THIGH INIT * * *Final Report* * * DATE OF EXAM: Feb 21 2022 8:32AM MDP 0060 - NM PET/CT SKULL-THIGH INIT / PROCEDURE REASON: multiple diagnoses * * * * Physician Interpretation * * * * FDG PET/CT SCAN 02/21/2022 6:47 AM: CLINICAL HISTORY: 76 years old Female with Neoplasm of lung Lung nodule . History of non-small cell lung cancer. INDICATION: Initial treatment strategy. TECHNIQUE: 10.2 mCi F-18 FDG IV, followed about 1 hour later by PET imaging from base of the skull to proximal femur. Non contrast CT was performed for attenuation correction and anatomic localization purposes. CT Dose-Length Product (DLP): 293 mGy*cm. CT Dose Reduction Employed: Yes COMPARISON: None. CORRELATION: No recent pertinent RESULT: Note- The SUV value is for reference purposes. Due to technical factors and uncontrolled variables, caution is advised when using SUV to differentiate malignant from nonmalignant processes, or to assess follow-up/treatment response. Reference max SUV: Mediastinum blood pool activity: max SUV 2.3 Background liver activity: max SUV 2.7 HEAD AND NECK: 1.0 cm left thyroid lobe nodule on 3:72 is not FDG avid. No pathologically enlarged or hypermetabolic cervical lymphadenopathy. Uptake in the oral cavity, tonsils, salivary glands, extraocular muscles is likely physiologic. Substantially limited evaluation of the intracranial structures due to the physiologic french matter uptake. CHEST: Devices/lines and tubes: None Lungs and tracheobronchial tree: Within the right upper lobe along the major fissure, there is a 3.5 x 5.1 x 5.2 cm mass (AP/transverse/CC; image 110), consistent with biopsy proven lung carcinoma (SUV max 11.1). Right middle lobe extension is suspected with probable obstruction of the lateral segment bronchus and early postobstructive changes. 1 cm pulmonary nodule in the right upper lobe superiorly (image 94, max SUV 1.0) is more conspicuous compared to the referenced chest CT. 1 cm subpleural nodule in the superior segment right lower lobe (image 96; max SUV 1.3). Since FDG PET may have decreased sensitivity for pulmonary nodules <0.8 cm, follow-up chest CT would be suggested, as clinically indicated. Pleura and pericardium: No pleural effusion.No pericardial effusion Mediastinum and Lymph nodes: No hypermetabolic axillary, hilar, or mediastinal lymphadenopathy. Coronary atherosclerosis. Aortic atherosclerosis. Chest wall: No hypermetabolic lesion ABDOMEN AND PELVIS: Physiologic uptake seen in the and GI tracts. Liver: 0.9 cm segment 1 hypodensity on 3:71 is not FDG avid, likely secondary to cysts. Mildly heterogeneous uptake, no definite hypermetabolic lesion. Biliary: No bile duct dilation. Inspissated bile versus sludge. Spleen: No splenomegaly or FDG avidity. Pancreas: No abnormal FDG avidity or duct dilation. Adrenals: No FDG avid lesion. Kidneys: There are small nonobstructing left renal calculi, largest 0.4 cm in the lower pole. No hydronephrosis or hypermetabolic lesions. . GI tract: No dilation or wall thickening. Lymph nodes: No abdominal or pelvic hypermetabolic lymphadenopathy. Mesentery/Peritoneum: No ascites or hypermetabolic mass. Vasculature: Vascular patency cannot be assessed due to lack of IV contrast. There are atherosclerotic calcifications without aneurysmal dilation. Pelvis: No hypermetabolic mass, ascites or fluid collection. Abdominopelvic wall: No hypermetabolic lesion MUSCULOSKELETAL: Within the T10 vertebral body at the right posterior aspect/pedicle, there is an approximately 1.9 x 1.0 cm sclerotic lesion with a 1.0 x 0.5 cm central ovoid lucent lucency, SUV max 2.2 (slightly less conspicuous compared to the normal marrow abdominal). No additional suspicious hypermetabolic osseous lesions. Assistant [employer]ing [employer] (topogram) images: No additional findings. IMPRESSION: Head and Neck: * 1.0 cm left thyroid lobe nodule is not FDG avid. Recommend correlation with thyroid ultrasound, if not recently performed. Chest: * 5.2 cm right upper lobe hypermetabolic mass, consistent with biopsy proven primary lung carcinoma. * Additional small right lung pulmonary nodules in the right upper and lower lobes measure approximately 1 cm, and are not FDG avid. Further workup including follow-up imaging may be performed, as clinically indicated. * No pathologic or FDG avid lymphadenopathy. Abdomen and pelvis: * No evidence of FDG avid neoplastic process * Small nonobstructing left renal calculi measuring up to 0.4 cm. * Atherosclerosis Musculoskeletal: * T10 vertebral body lesion is not significantly FDG avid, metastasis cannot be entirely excluded. If prior studies are not available, characterization with contrast-enhanced thoracic spine MRI is recommended ACTIONABLE RESULT: FOLLOW-UP Acuity: Actionable Findings: Neurological System-SPINE Routing Code: NI_2 Recommendation: MRI THORA (more content not included)... Invalid Interpretation Code [facility] No Panel Informationon 02-21 Radiology Result ACTIONABLE Abnormal [facility] CHEST 2 VIEW PA AND LATon CHEST 2 VIEW PA AND LAT Patient Name: LIDIA ORTIZ STUDY: TH CHEST 2 VIEW PA AND LAT INDICATION: R05.9. COMPARISON: None ACCESSION NUMBER(S): [id number] ORDERING CLINICIAN: MIMI QUACH FINDINGS: 5 cm rounded soft tissue mass right lung highly concerning for malignant neoplasm. No effusion or pneumothorax. IMPRESSION: 5 cm rounded soft tissue mass right lung highly concerning for malignant neoplasm. CT of the thorax is recommended for further evaluation. Note: Electronic result notification sent on this examination at the time of final interpretation 5:26 p.m. January 18, 2022. Electronically signed by: FANI CONNOR MD [facility] Urinalysis, Office ([id number])Or dered By: Lex Vogel on 08-13-2019 Bilirubin Ql (U) Negative Normal [facility] Work Phone: Glucose Test strip (U) [Mass/Vol] Negative Normal [facility] Work Phone: Hemoglobin Ql (U) Negative Normal Compre[facility] Work Phone: Ketones Ql (U) Negative Normal [facility] Work Phone: Leukocyte esterase Test strip Ql (U) Small Normal [facility] Work Phone: Nitrite Ql (U) Negative Normal [facility] Work Phone: pH (U) 7 [pH] Normal [facility] Work Phone: Protein Ql (U) Negative Normal [facility] Work Phone: Specific gravity (U) [Rel density] 1.010 1 Normal [facility] Work Phone: Urobilinogen (24H U) [Mass/Time] Normal Normal [facility] Work Phone: US Abdominal Aorta screening for AAAon 05-02-2019 US Abdominal Aorta screening for AAA Exam Date/Time: 05/02/2019 11:07 EDT Reason for Exam: FAMILY HX OF AAA Report STUDY: US Abdominal Aorta screening for AAA; 05/02/2019 11:07 am INDICATION: 74 y/o F with FAMILY HX OF AAA. COMPARISON: None. ACCESSION NUMBER(S): [id number] ORDERING CLINICIAN: Mimi Quach TECHNIQUE: Dedicated ultrasound of the abdomen was performed to specifically evaluate for abdominal aortic aneurysm. Static images were obtained for remote interpretation. FINDINGS: ABDOMINAL AORTA AND IVC: The abdominal aorta does not demonstrate evidence of focal aneurysm. The proximal aorta measures up to 2.2 x 2.3 cm, the mid aorta measures up to 1.6 x 1.7 cm and the distal aorta measures up to 1.2 x 1.3 cm. No focal aneurysm is evident in the proximal iliac arteries. The inferior vena cava demonstrates patency. IMPRESSION: No abdominal aortic aneurysm is evident. FINAL REPORT Dictated: 05/02/2019 2:54 pm Maurizio Ramsay MD Signed (Electronic Signature): 05/02/2019 2:54 pm Signed by: Maurizio Ramsay MD Technologist: [facility] FOOT COMPLETE LTon 8 FOOT COMPLETE [place] [address] [address] [place] [address] Patient: LIDIA ORTIZ Phone#: : [phone] Age: 73 Gender: F Pt. Type: Out Account: [id number] Location: Ordering: TONY HORN Exam Date: 07/18/2018/13:43 Family Phys: MIMI QUACH Charge Code: [id number] Physician: Beadle Order #: [id number] [facility] Dose#: PROCEDURE: X-RAY FOOT LT COMPLETE MIN 3 VIEWS COMPARISON: None. INDICATIONS: Pain midfoot FINDINGS: BONES: There is widening of the first and second metatarsal joint space at the base measuring 0.6 cm, this is consistent with Lisfranc ligament injury. Calcaneal pitch angle measures 16.6, consistent with pes planus. Subchondral cysts formation versus erosions throughout the forefoot. There is joint space loss, sclerosis and spurring throughout the tarsal bones. SOFT TISSUES: There is soft tissue swelling laterally. Soft tissue swelling overlies the medial cuneiform first metatarsal articulation. EFFUSION: None visible. OTHER: Negative. CONCLUSION: 1. Widening of the first and second metatarsal articulation in color consistent with Lisfranc ligament injury. 2. Pes planus 3. Diffuse degenerative changes throughout the tarsal bones with subchondral cyst formation versus erosion, joint space loss and sclerosis. Dictated by: Mariana Edwards MD on 07/18/2018 at 14:44 Approved by: Mariana Edwards MD on 07/18/2018 at 14:44 Normal [facility] Vital Signs Date Time Vital Sign Value Performing Clinician Facility 07-03-2025 10:59-0400 Body height 177 cm Rohan [email or web address] DO Work Phone: [facility] 07-03-2025 10:59-0400 Body mass index (BMI) [Ratio] 23.89 kg/m2 Rohan Aquaporini DO Work Phone: [facility] 07-03-2025 10:59-0400 Body temperature 97.5 [degF] Rohan Aquaporini DO Work Phone: [facility] 07-03-2025 10:59-0400 Body weight 74.84 kg Rohan Aquaporini DO Work Phone: [facility] 07-03-2025 10:59-0400 Diastolic blood pressure 92 mm[Hg] Rohan Aquaporini DO Work Phone: [facility] 07-03-2025 10:59-0400 Heart rate 70 /min Rohan Masci DO Work Phone: [facility] 07-03-2025 10:59-0400 SaO2% (BldA) [Mass fraction] 98 % Rohan Alvarez DO Work Phone: [facility] 07-03-2025 10:59-0400 Systolic blood pressure 172 mm[Hg] Rohan Alvarez DO Work Phone: [facility] 06-25-2025 15:34-0400 Diastolic blood pressure 87 mm[Hg] Axelsav Vizcaino [employer] Work Phone: [facility] 06-25-2025 15:34-0400 Systolic blood pressure 169 mm[Hg] Axel Vizcaino [employer] EQU[employer] SUPERVISOR Work Phone: [facility] 06-25-2025 14:52-0400 Body height 177.8 cm Axelsav Vizcaino [employer] EQU[employer] SUPERVISOR Work Phone: [facility] 06-25-2025 14:52-0400 Heart rate 72 /min Axel Vizcaino [employer] EQU[employer] SUPERVISOR Work Phone: [facility] 06-25-2025 14:52-0400 Respiratory rate 16 /min Axel Vizcaino [employer] EQU[employer] SUPERVISOR Work Phone: [facility] 06-25-2025 14:52-0400 SaO2% (BldA) [Mass fraction] 98 % Axel Vizcaino [employer] EQU[employer] SUPERVISOR Work Phone: [facility] 05-31-2025 11:49-0400 Body temperature 98.01 [degF] Raquel Solorzano MD Work Phone: [facility] 05-31-2025 11:49-0400 Diastolic blood pressure 77 mm[Hg] Raquel Solorzano MD Work Phone: [facility] 05-31-2025 11:49-0400 Heart rate 69 /min Raquel Solorzano MD Work Phone: [facility] 05-31-2025 11:49-0400 Respiratory rate 18 /min Raquel Solorzano MD Work Phone: [facility] 05-31-2025 11:49-0400 SaO2% (BldA) [Mass fraction] 97 % Raquel Solorzano MD Work Phone: [facility] 05-31-2025 11:49-0400 Systolic blood pressure 148 mm[Hg] Raquel Solorzano MD Work Phone: [facility] 05-31-2025 05:00-0400 Body mass index (BMI) [Ratio] 22.87 kg/m2 Raquel Solorzano MD Work Phone: [facility] 05-31-2025 05:00-0400 Body weight 72.3 kg Raquel Solorzano MD Work Phone: [facility] 05-30-2025 01:39-0400 Body height 177.8 cm Raquel Solorzano MD Work Phone: [facility] 11-20-2024 13:24-0500 Body mass index (BMI) [Ratio] 23.8 kg/m2 Georgiana Hurley Work Phone: [facility] 11-20-2024 13:24-0500 Body temperature 97.39 [degF] Georgiana Hurley Work Phone: [facility] 11-20-2024 13:24-0500 Body weight 73.71 kg Georgiana Hurley Work Phone: [facility] 11-20-2024 13:24-0500 Diastolic blood pressure 107 mm[Hg] Georgianahéctor Hurley Work Phone: [facility] 11-20-2024 13:24-0500 Heart rate 71 /min Georgianahéctor Hurley Work Phone: [facility] 11-20-2024 13:24-0500 SaO2% (BldA) [Mass fraction] 91 % Georgianahéctor Hurley Work Phone: [facility] 11-20-2024 13:24-0500 Systolic blood pressure 176 mm[Hg] Georgiana Hurley Work Phone: [facility] 08-05-2024 13:01-0400 Body mass index (BMI) [Ratio] 23.83 kg/m2 Avon Simmons [employer] SUPERVISOR Work Phone: [facility] 08-05-2024 13:01-0400 Body temperature 97.2 [degF] Sarahi Simmons [employer]QU[employer] SUPERVISOR Work Phone: [facility] 08-05-2024 13:01-0400 Body weight 73.8 kg Sarahi Santanaenter [employer]QU[employer] SUPERVISOR Work Phone: [facility] 08-05-2024 13:01-0400 Diastolic blood pressure 107 mm[Hg] Sarahi Simmons [employer] EQUIPMENT SUPERVISOR Work Phone: [facility] 08-05-2024 13:01-0400 Heart rate 61 /min Avon Simmons [employer] EQU[employer]MENT SUPERVISOR Work Phone: [facility] 08-05-2024 13:01-0400 SaO2% (BldA) [Mass fraction] 97 % Sarahi Santanaenter [employer] EQUIPMENT SUPERVISOR Work Phone: [facility] 08-05-2024 13:01-0400 Systolic blood pressure 192 mm[Hg] Avonsuellen SantanaSimmons [employer] EQUIPMENT SUPERVISOR Work Phone: [facility] 05-06-2024 12:22-0400 Diastolic blood pressure 98 mm[Hg] Rohan Masci DO Work Phone: [facility] Comment on above: manually 05-06-2024 12:22-0400 Systolic blood pressure 200 mm[Hg] Rohan Masci DO Work Phone: [facility] Comment on above: manually 05-06-2024 11:31-0400 Body mass index (BMI) [Ratio] 23.65 kg/m2 Rohan Masci DO Work Phone: [facility] 05-06-2024 11:31-0400 Body temperature 97.9 [degF] Rohan Masci DO Work Phone: [facility] 05-06-2024 11:31-0400 Body weight 73.26 kg Rohan Masci DO Work Phone: [facility] 05-06-2024 11:31-0400 Heart rate 64 /min Rohan Masci DO Work Phone: [facility] 05-06-2024 11:31-0400 SaO2% (BldA) [Mass fraction] 99 % Rohan Masci DO Work Phone: [facility] 11-02-2023 14:27-0500 Body height 176 cm Rohan Masci DO Work Phone: [facility] 11-02-2023 14:27-0500 Body temperature 97.59 [degF] Rohan Masci DO Work Phone: [facility] 11-02-2023 14:27-0500 Body weight 73.94 kg Rohan Masci DO Work Phone: [facility] 11-02-2023 14:27-0500 Diastolic blood pressure 78 mm[Hg] Rohan Masci DO Work Phone: [facility] 11-02-2023 14:27-0500 Heart rate 60 /min Rohan Masci DO Work Phone: [facility] 11-02-2023 14:27-0500 SaO2% (BldA) [Mass fraction] 99 % Rohan Masci DO Work Phone: [facility] 11-02-2023 14:27-0500 Systolic blood pressure 155 mm[Hg] Rohan Masci DO Work Phone: [facility] 05-03-2023 15:55-0400 Body height 177 cm Rohan Masci DO Work Phone: [facility] 05-03-2023 15:55-0400 Body temperature 97.59 [degF] Rohan Masci DO Work Phone: [facility] 05-03-2023 15:55-0400 Body weight 70.08 kg Rohan Masci DO Work Phone: [facility] 05-03-2023 15:55-0400 Diastolic blood pressure 72 mm[Hg] Rohan Masci DO Work Phone: [facility] 05-03-2023 15:55-0400 Heart rate 64 /min Rohan Masci DO Work Phone: [facility] 05-03-2023 15:55-0400 SaO2% (BldA) [Mass fraction] 94 % Rohan Masci DO Work Phone: [facility] 05-03-2023 15:55-0400 Systolic blood pressure 133 mm[Hg] Rohan Masci DO Work Phone: [facility] 01-18-2023 11:11-0500 Body height 177.[address] Mimi Quach Work Phone: [facility] 01-18-2023 11:11-0500 Body mass index (BMI) [Ratio] 21.4 kg/m2 Dr. Mimi Quach Work Phone: [facility] 01-18-2023 11:11-0500 Body weight 67.[address] Mimi Quach Work Phone: [facility] 01-18-2023 11:11-0500 Diastolic blood pressure 79 mm[Hg] Dr. Mimi Quach Work Phone: [facility] 01-18-2023 11:11-0500 Heart rate 62 /min Dr. Mimi Quach Work Phone: [facility] 01-18-2023 11:11-0500 Respiratory rate 16 /min Dr. Mimi Quach Work Phone: [facility] 01-18-2023 11:11-0500 Systolic blood pressure 165 mm[Hg] Dr. Mimi Quach Work Phone: [facility] 01-09-2023 10:46-0500 Body height 177 cm Rohan Masci DO Work Phone: [facility] 01-09-2023 10:46-0500 Body temperature 98.71 [degF] Rohan Masci DO Work Phone: [facility] 01-09-2023 10:46-0500 Body weight 67.36 kg Rohan Masci DO Work Phone: [facility] 01-09-2023 10:46-0500 Diastolic blood pressure 79 mm[Hg] Rohan Masci DO Work Phone: [facility] 01-09-2023 10:46-0500 Heart rate 55 /min Rohan Masci DO Work Phone: [facility] 01-09-2023 10:46-0500 SaO2% (BldA) [Mass fraction] 99 % Rohan Masci DO Work Phone: [facility] 01-09-2023 10:46-0500 Systolic blood pressure 148 mm[Hg] Rohan Masci DO Work Phone: [facility] 10-03-2022 11:30-0500 Body temperature 97.81 [degF] Rohan Lucasi DO Work Phone: [facility] 10-03-2022 11:30-0500 Body weight 63.96 kg Rohan Masci DO Work Phone: [facility] 10-03-2022 11:30-0500 Diastolic blood pressure 90 mm[Hg] Rohan Lucasi DO Work Phone: [facility] 10-03-2022 11:30-0500 Heart rate 65 /min Rohan Lucasi DO Work Phone: [facility] 10-03-2022 11:30-0500 SaO2% (BldA) [Mass fraction] 97 % Rohan Shayyi DO Work Phone: [facility] 10-03-2022 11:30-0500 Systolic blood pressure 152 mm[Hg] Rohan Lucasi DO Work Phone: [facility] 08-07-2022 18:12-0400 Diastolic blood pressure 69 mm[Hg] [facility] Work Phone: 08-07-2022 18:12-0400 Heart rate 72 /min [facility] Work Phone: 08-07-2022 18:12-0400 Respiratory rate 16 /min [facility] Work Phone: 08-07-2022 18:12-0400 SaO2% (BldA) [Mass fraction] 97 % [facility] Work Phone: 08-07-2022 18:12-0400 Systolic blood pressure 159 mm[Hg] [facility] Work Phone: 08-07-2022 13:21-0400 Body height 177.8 cm [facility] Work Phone: 08-07-2022 13:21-0400 Body mass index (BMI) [Ratio] 20.7 kg/m2 [facility] Work Phone: 08-07-2022 13:21-0400 Body temperature 97.4 [degF] [facility] Work Phone: 08-07-2022 13:21-0400 Body weight 65.77 kg [facility] Work Phone: 07-11-2022 15:47-0400 Body temperature 97.7 [degF] Rohan Masci DO Work Phone: [facility] 07-11-2022 15:47-0400 Body weight 65.09 kg Rohan Masci DO Work Phone: [facility] 07-11-2022 15:47-0400 Diastolic blood pressure 86 mm[Hg] Rohan Masci DO Work Phone: [facility] 07-11-2022 15:47-0400 Heart rate 58 /min Rohan Masci DO Work Phone: [facility] 07-11-2022 15:47-0400 SaO2% (BldA) [Mass fraction] 99 % Rohan Masci DO Work Phone: [facility] 07-11-2022 15:47-0400 Systolic blood pressure 147 mm[Hg] Rohan Masci DO Work Phone: [facility] 06-23-2022 14:54-0400 Body height 177.8 cm Eduardo Lehman MD Work Phone: [facility] 06-23-2022 14:54-0400 Body temperature 98.49 [degF] Eduardo Lehman MD Work Phone: [facility] 06-23-2022 14:54-0400 Body weight 67.54 kg Eduardo Lehman MD Work Phone: [facility] 06-23-2022 14:54-0400 Diastolic blood pressure 85 mm[Hg] Eduardo Lehman MD Work Phone: [facility] 06-23-2022 14:54-0400 Heart rate 68 /min Eduardo Lehman MD Work Phone: [facility] 06-23-2022 14:54-0400 Respiratory rate 18 /min Eduardo Lehman MD Work Phone: [facility] 06-23-2022 14:54-0400 SaO2% (BldA) [Mass fraction] 98 % Eduardo Lehman MD Work Phone: [facility] 06-23-2022 14:54-0400 Systolic blood pressure 141 mm[Hg] Eduardo Lehman MD Work Phone: [facility] 06-03-2022 12:12-0400 Body height 175.2 cm Mimi Quach Other Phone: [facility] 06-03-2022 12:12-0400 Body temperature 98.06 [degF] Mimi Quach Other Phone: [facility] 06-03-2022 12:12-0400 Diastolic blood pressure 84 mm[Hg] Mimi Quach Other Phone: [facility] 06-03-2022 12:12-0400 Heart rate 67 /min Mimi Quach Other Phone: [facility] 06-03-2022 12:12-0400 Respiratory rate 16 /min Mimi Quach Other Phone: [facility] 06-03-2022 12:12-0400 SaO2% (BldA) [Mass fraction] 98 % Mimi Quach Other Phone: [facility] 06-03-2022 12:12-0400 Systolic blood pressure 151 mm[Hg] Mimi Quach Other Phone: [facility] 06-02-2022 14:49-0400 Body height 177.8 cm Eduardo Lehman MD Work Phone: [facility] 06-02-2022 14:49-0400 Body temperature 98.1 [degF] Eduardo Lehman MD Work Phone: [facility] 06-02-2022 14:49-0400 Body weight 65.32 kg Eduardo Lehman MD Work Phone: [facility] 06-02-2022 14:49-0400 Diastolic blood pressure 85 mm[Hg] Eduardo Lehman MD Work Phone: [facility] 06-02-2022 14:49-0400 Heart rate 63 /min Eduardo Lehman MD Work Phone: [facility] 06-02-2022 14:49-0400 Respiratory rate 12 /min Eduardo Lehman MD Work Phone: [facility] 06-02-2022 14:49-0400 SaO2% (BldA) [Mass fraction] 98 % Eduardo Lehman MD Work Phone: [facility] 06-02-2022 14:49-0400 Systolic blood pressure 169 mm[Hg] Eduardo Lehman MD Work Phone: [facility] 05-16-2022 08:15-0400 Body temperature 97.5 [degF] Treatment Wstr Work Phone: [facility] 05-16-2022 08:15-0400 Body weight 69.63 kg Treatment Wstr Work Phone: [facility] 05-16-2022 08:15-0400 Diastolic blood pressure 72 mm[Hg] Treatment Wstr Work Phone: [facility] 05-16-2022 08:15-0400 Heart rate 59 /min Treatment Wstr Work Phone: [facility] 05-16-2022 08:15-0400 Respiratory rate 16 /min Treatment Wstr Work Phone: [facility] 05-16-2022 08:15-0400 SaO2% (BldA) [Mass fraction] 100 % Treatment Wstr Work Phone: [facility] 05-16-2022 08:15-0400 Systolic blood pressure 151 mm[Hg] Treatment Wstr Work Phone: [facility] 04-25-2022 13:09-0400 Body temperature 97.59 [degF] Treatment Wstr Work Phone: [facility] 04-25-2022 13:09-0400 Diastolic blood pressure 83 mm[Hg] Treatment Wstr Work Phone: [facility] 04-25-2022 13:09-0400 Heart rate 86 /min Treatment Wstr Work Phone: [facility] 04-25-2022 13:09-0400 SaO2% (BldA) [Mass fraction] 100 % Treatment Wstr Work Phone: [facility] 04-25-2022 13:09-0400 Systolic blood pressure 148 mm[Hg] Treatment Wstr Work Phone: [facility] 04-24-2022 14:39-0400 Body temperature 98.2 [degF] Rohan Masci DO Work Phone: [facility] 04-24-2022 14:39-0400 Body weight 68.04 kg Rohan Masci DO Work Phone: [facility] 04-24-2022 14:39-0400 Diastolic blood pressure 78 mm[Hg] Rohan Masci DO Work Phone: [facility] 04-24-2022 14:39-0400 Heart rate 68 /min Rohan Masci DO Work Phone: [facility] 04-24-2022 14:39-0400 SaO2% (BldA) [Mass fraction] 97 % Rohan Masci DO Work Phone: [facility] 04-24-2022 14:39-0400 Systolic blood pressure 135 mm[Hg] Rohan Masci DO Work Phone: [facility] 04-10-2022 14:39-0400 Body temperature 97.59 [degF] Treatment Wstr Work Phone: [facility] 04-10-2022 14:39-0400 Body weight 67.36 kg Treatment Wstr Work Phone: [facility] 04-10-2022 14:39-0400 Diastolic blood pressure 62 mm[Hg] Treatment Wstr Work Phone: [facility] 04-10-2022 14:39-0400 Heart rate 75 /min Treatment Wstr Work Phone: [facility] 04-10-2022 14:39-0400 Systolic blood pressure 139 mm[Hg] Treatment Wstr Work Phone: [facility] 04-04-2022 08:41-0400 Body temperature 97.2 [degF] Treatment Wstr Work Phone: [facility] 04-04-2022 08:41-0400 Body weight 68.72 kg Treatment Wstr Work Phone: [facility] 04-04-2022 08:41-0400 Diastolic blood pressure 67 mm[Hg] Treatment Wstr Work Phone: [facility] 04-04-2022 08:41-0400 Heart rate 64 /min Treatment Wstr Work Phone: [facility] 04-04-2022 08:41-0400 Systolic blood pressure 166 mm[Hg] Treatment Wstr Work Phone: [facility] 03-29-2022 14:45-0400 Diastolic blood pressure 81 mm[Hg] Brandon Montero MD Work Phone: [facility] 03-29-2022 14:45-0400 Heart rate 60 /min Brandon Montero MD Work Phone: [facility] 03-29-2022 14:45-0400 Respiratory rate 16 /min Brandon Montero MD Work Phone: [facility] 03-29-2022 14:45-0400 SaO2% (BldA) [Mass fraction] 98 % Brandon Montero MD Work Phone: [facility] 03-29-2022 14:45-0400 Systolic blood pressure 181 mm[Hg] Brandon Montero MD Work Phone: [facility] 03-29-2022 14:21-0400 Body temperature 97.3 [degF] Brandon Montero MD Work Phone: [facility] 03-22-2022 12:15-0400 Body temperature 97.59 [degF] Rohan Masci DO Work Phone: [facility] 03-22-2022 12:15-0400 Body weight 69.4 kg Rohan Masci DO Work Phone: [facility] 03-22-2022 12:15-0400 Diastolic blood pressure 85 mm[Hg] Rohan Masci DO Work Phone: [facility] 03-22-2022 12:15-0400 Heart rate 64 /min Rohan Masci DO Work Phone: [facility] 03-22-2022 12:15-0400 Systolic blood pressure 173 mm[Hg] Rohan Masci DO Work Phone: [facility] 02-24-2022 08:50-0400 Body weight 69.85 kg Sherri Torres MD Work Phone: [facility] 02-24-2022 08:50-0400 Diastolic blood pressure 80 mm[Hg] Sherri Torres MD Work Phone: [facility] 02-24-2022 08:50-0400 Heart rate 64 /min Sherri Torres MD Work Phone: [facility] 02-24-2022 08:50-0400 Respiratory rate 14 /min Sherri Torres MD Work Phone: [facility] 02-24-2022 08:50-0400 SaO2% (BldA) [Mass fraction] 97 % Sherri Torres MD Work Phone: [facility] 02-24-2022 08:50-0400 Systolic blood pressure 164 mm[Hg] Sherri Torres MD Work Phone: [facility] 02-23-2022 08:24-0400 Diastolic blood pressure 100 mm[Hg] Rohan Masci DO Work Phone: [facility] 02-23-2022 08:24-0400 Systolic blood pressure 174 mm[Hg] Rohan Masci DO Work Phone: [facility] 02-23-2022 08:18-0400 Body temperature 97.81 [degF] Rohan Masci DO Work Phone: [facility] 02-23-2022 08:18-0400 Body weight 69.85 kg Rohan Masci DO Work Phone: [facility] 02-23-2022 08:18-0400 Heart rate 66 /min Rohan Masci DO Work Phone: [facility] 02-23-2022 08:18-0400 SaO2% (BldA) [Mass fraction] 99 % Rohan Masci DO Work Phone: [facility] 02-13-2022 13:35-0400 Body height 172.3 cm Rohan Masci DO Work Phone: [facility] 02-13-2022 13:35-0400 Body temperature 99 [degF] Rohan Masci DO Work Phone: [facility] 02-13-2022 13:35-0400 Body weight 69.17 kg Rohan Masci DO Work Phone: [facility] 02-13-2022 13:35-0400 Diastolic blood pressure 88 mm[Hg] Rohan Masci DO Work Phone: [facility] 02-13-2022 13:35-0400 Heart rate 66 /min Rohan Masci DO Work Phone: [facility] 03-28-2022 13:35-0400 SaO2% (BldA) [Mass fraction] 96 % Rohan Alvarez DO Work Phone: [facility] 02-13-2022 13:35-0400 Systolic blood pressure 183 mm[Hg] Rohan Alvarez DO Work Phone: [facility] 08-13-2019 10:07-0400 BMI (Body Mass Index) 23.97 kg/m2 Ama [facility] Work Phone: 08-13-2019 10:07-0400 Body Temperature 97 [degF] Ama [facility] Work Phone: Comment on above: Method: Temporal 08-13-2019 [id number] Body weight 75.77 kg Ama [facility] Work Phone: 08-13-2019 10:07-0400 BP Diastolic 82 mm[Hg] Ama [facility] Work Phone: Comment on above: Patient Position: Sitting; Cuff Location : Left Arm; Cuff Size: Standard 08-13-2019 10:07-0400 BP Systolic 124 mm[Hg] Ama [facility] Work Phone: Comment on above: Patient Position: Sitting; Cuff Location : Left Arm; Cuff Size: Standard 08-13-2019 10:07-0400 BSA (Body Surface Area) 1.93 m2 Ama [facility] Work Phone: 08-13-2019 10:07-0400 Height 177.8 cm Ama Ybarra [facility] Work Phone: 08-13-2019 10:07-0400 Pulse (Heart Rate) 52 /min Ama [facility] Work Phone: Comment on above: Pattern: Regular 08-13-2019 10:07-0400 Pulse Oximetry 96 % Ama [facility] Work Phone: Comment on above: Room air 08-13-2019 10:07-0400 Respiratory Rate 17 /min Ama Ybarra [facility] Internal Medicine Work Phone: Comment on above: Pattern: Unlabored Encounters Encounter Date Encounter Type Care Provider Facility Start: 09-28-2025 ambulatory Angy Bautista Facility: [facility] Start: 08-03-2025 End: 08-03-[address] Angy Bautista MD Work Phone: -Radiology [place] Start: 08-03-2025 End: 08-03-2025 Patient encounter procedure Tanya Mahoney -Radiology [place] Work Phone: Start: 08-03-2025 End: 08-03-2025 ambulatory Angy Bautista Facility:[facility] Start: 07-03-2025 End: 07-03-2025 Patient encounter procedure Rohan Alvarez DO Work Phone: Hematology/Oncology Start: 07-03-2025 End: 07-03-2025 ambulatory Rohan Alvarez DO Work Phone: Hematology/Oncology Comment on above: Malignant neoplasm o f unspecified part of unspecified bronchus or lung (HCC) (Primary Dx); Lung nodule Start: 06-25-2025 End: 06-25-2025 Office outpatient visit 25 minutes Axel Vizcaion CNP Work Phone: [facility] Comment on above: Cerebrovascular acci dent (CVA), unspecified mechanism (HCC) (Primary Dx) Start: 06-25-2025 End: 06-25-2025 ambulatory FERDINAND LAKHANI [facility] Start: 06-23-2025 End: 06-23-2025 ambulatory GEORGIANA HURLEY Facility:[facility] Start: 06-15-2025 End: 06-15-[address] Angy Bautista MD Work Phone: -Laboratory [place] Start: 06-15-2025 End: 06-15-[address] Angy Bautista MD -Laboratory [place] Work Phone: Start: 06-15-2025 End: 06-15-2025 ambulatory Angy Bautista Facility:[facility] Start: 06-02-2025 End: 06-02-[address] Angy Bautista MD Work Phone: -Laboratory Specimen Start: 06-02-2025 End: 06-02-2025 Patient encounter procedure Nilam Esquivel [employer] -Laboratory Specimen Work Phone: Start: 06-02-2025 End: 06-02-2025 ambulatory Nilamfarooq Esquivel Facility:[facility] Start: 05-28-2025 Critical care ill/injured patient init 30-74 min Timbo Holguin MD Work Phone: [facility] Start: 05-28-2025 End: 05-31-2025 Evaluation and management of inpatient Timbo Holguin MD Work Phone: [facility] Start: 05-28-2025 ambulatory [facility] Start: 04-27-2025 End: 04-27-2025 ambulatory CHANG Owens [facility] Start: 04-20-2025 End: 04-20-2025 ambulatory CHANG Owens [facility] Start: 04-06-2025 End: 04-06-2025 ambulatory CHANG Owens [facility] Start: 03-30-2025 End: 03-30-2025 ambulatory CHANG Owens [facility] Start: 03-23-2025 End: 03-23-2025 ambulatory CHANG Owens [facility] Start: 03-18-2025 End: 03-18-2025 ambulatory CHANG RILEY [facility] Start: 03-16-2025 End: 03-16-[address] Angy Bautista MD -Sleep Lab Work Phone: Start: 03-16-2025 End: 03-16-2025 ambulatory CHANG RILEY [facility] Start: 03-16-2025 End: 03-16-2025 ambulatory Angy Bautista Facility:[facility] Start: 03-11-2025 End: 03-11-2025 ambulatory CHANG [facility] Start: 03-09-2025 End: 03-09-2025 ambulatory CHANG RILEY [facility] Start: 03-04-2025 End: 03-04-2025 ambulatory CHANG RILEY [facility] Start: 03-02-2025 End: 03-02-2025 ambulatory HARMONY Elaine [facility] Start: 02-23-2025 End: 02-23-2025 ambulatory HARMONY Elaine [facility] Start: 11-20-2024 End: 02-21-2025 Telephone encounter Georgianacarola Hurley Work Phone: Hematology/Oncology Comment on above: avs Start: 11-20-2024 End: 11-20-2024 ambulatory GEORGIANA HURLEY Facility:[facility] Start: 11-20-2024 End: 11-20-2024 Follow-up encounter Georgiana Hurley Work Phone: Hematology/Oncology Comment on above: Encounter for follow -up surveillance of lung cancer (Primary Dx); Malignant neoplasm of unspecified part of unspecified bronchus or lung (HCC) Start: 11-20-2024 End: 11-20-2024 Patient encounter procedure Georgiana Hurley Work Phone: Hematology/Oncology Start: 11-04-2024 End: 11-04-2024 Subsequent hospital visit by physician Rosa [facility] (I-Stat) Work Phone: Cat Scan Comment on above: Malignant neoplasm o f unspecified part of unspecified bronchus or lung (HCC) [C34.90] Start: 11-04-2024 End: 11-04-2024 ambulatory ANGY BAUTISTA Facility:[facility] Start: 10-27-2024 End: 10-27-2024 ambulatory Kleber Golias PT Work Phone: [facility] Comment on above: Posterior tibial ten don dysfunction (Primary Dx); Osteoarthritis of ankle and foot, unspecified laterality Start: 09-29-2024 End: 09-29-2024 ambulatory Kleber Golias PT Work Phone: [facility] Comment on above: Osteoarthritis of an kle and foot, unspecified laterality (Primary Dx); Posterior tibial tendon dysfunction; Arthritis of midfoot, unspecified laterality Start: 09-01-2024 End: 09-01-2024 Patient encounter procedure Dory Anderson Work Phone: Podiatry Comment on above: Posterior tibial ten don dysfunction (Primary Dx); Arthritis of midfoot, unspecified laterality; Controlled type 2 diabetes mellitus without complication, without long-term current use of insulin (HCC) Start: 09-01-2024 End: 09-01-2024 ambulatory DORY ANDERSON Facility:[facility] Start: 09-01-2024 End: 09-01-2024 Subsequent hospital visit by physician Mauricio [facility] Kimmie Madison Work Phone: Radiology Comment on above: Bilateral foot pain [M79.671, M79.672] Start: 08-28-2024 End: 08-28-2024 Orders Only Dory Anderson Work Phone: Podiatry Comment on above: Bilateral foot pain (Primary Dx) Start: 08-05-2024 End: 08-05-2024 ambulatory SARAHI SIMMONS Facility:[facility] Start: 08-05-2024 End: 08-05-2024 Follow-up encounter Sarahi Simmons APRN.CNP Work Phone: Hematology/Oncology Comment on above: Encounter for follow -up surveillance of lung cancer (Primary Dx); Malignant neoplasm of unspecified part of unspecified bronchus or lung (HCC) Start: 08-05-2024 End: 08-05-2024 Patient encounter procedure Sarahi Simmons APRN.SPORTS EQUIPMENT SUPERVISOR Work Phone: Hematology/Oncology Start: 07-29-2024 End: 07-29-2024 ambulatory ANGY BAUTISTA Facility:[facility] Start: 07-29-2024 End: 07-29-2024 ambulatory ANGY Sav BAUTISTA Facility:[facility] Start: 07-29-2024 End: 07-29-2024 Subsequent hospital visit by physician Rosa [facility] (I-Stat) Work Phone: Cat Scan Comment on above: Malignant neoplasm o f unspecified part of unspecified bronchus or lung (HCC) [C34.90] Start: 05-06-2024 End: 05-06-2024 Office outpatient visit 25 minutes Rohan Alvarez DO Work Phone: Hematology/Oncology Comment on above: Malignant neoplasm o f unspecified part of unspecified bronchus or lung (HCC) (Primary Dx); Lung nodule; Primary hypertension Start: 04-29-2024 End: 04-29-2024 Subsequent hospital visit by physician [facility] (I-Stat) Work Phone: Cat Scan Comment on above: Malignant neoplasm o f upper lobe of right lung (HCC) [C34.11] Start: 04-27-2024 ambulatory Rohan Yoon Work Phone: Hematology/Oncology Comment on above: labs Start: 02-14-2024 End: 02-14-2024 ambulatory [facility] Work Phone: Start: 02-14-2024 End: 02-14-2024 Patient encounter procedure [facility]-Laboratory, [place] Work Phone: Start: 11-02-2023 End: 11-02-2023 ambulatory Rohan Alvarez DO Work Phone: Hematology/Oncology Comment on above: Malignant neoplasm o f upper lobe of right lung (HCC) (Primary Dx); Malignant neoplasm of unspecified part of unspecified bronchus or lung (HCC) Start: 11-02-2023 End: 11-02-2023 Patient encounter procedure Rohan Alvarez DO Work Phone: [facility] Start: 11-01-2023 Orders Only Rohan Yoon Work Phone: Hematology/Oncology Comment on above: Primary lung adenoca rcinoma, right (HCC) (Primary Dx); Malignant neoplasm of unspecified part of unspecified bronchus or lung (HCC) Start: 10-22-2023 Telephone encounter Rohan beal DO Work Phone: Hematology/Oncology Comment on above: Lab Orders Start: 10-09-2023 ambulatory Rohan Yoon Work Phone: Hematology/Oncology Comment on above: Address change Start: 05-03-2023 End: 05-03-2023 ambulatory Rohan Alvarez DO Work Phone: Hematology/Oncology Comment on above: Primary lung adenoca rcinoma, right (HCC) (Primary Dx); Malignant neoplasm of unspecified part of unspecified bronchus or lung (HCC) Start: 05-03-2023 End: 05-03-2023 Patient encounter procedure Rohan Alvarez DO Work Phone: [facility] Start: 05-01-2023 End: 05-01-2023 Subsequent hospital visit by physician [facility] (I-Stat) Work Phone: Cat Scan Comment on above: Malignant neoplasm o f unspecified part of unspecified bronchus or lung (HCC) [C34.90] Start: 04-11-2023 Non-patient / Non-visit Dr. Hernandez Work Phone: [facility] Start: 04-11-2023 End: 04-11-[address] Mimi Quach Work Phone: [facility] Work Phone: Start: 04-11-2023 End: 04-11-[address] Mimi Quach Work Phone: [facility]-Cardiovascular Services Start: 01-31-2023 Telephone encounter Rohan beal DO Work Phone: Hematology/Oncology Comment on above: Results (PET scan) Start: 01-30-2023 ambulatory MIMI Murdock [facility]x [facility] Start: 01-30-2023 End: 01-30-2023 Subsequent hospital visit by physician [facility] Work Phone: [facility] Comment on above: Malignant neoplasm o f unspecified part of unspecified bronchus or lung (HCC) [C34.90] Start: 01-18-2023 End: 01-18-[address] Mimi Quach Work Phone: [facility] Start: 01-16-2023 Non-patient / Non-visit Dr. Hernandez Work Phone: [facility] Start: 01-16-2023 Non-patient / Non-visit Dr. Hernandez Work Phone: [facility] Start: 01-15-2023 ambulatory Rohan Cantu O Work Phone: [facility] Start: 01-15-2023 Patient encounter procedure Rohan Alvarez DO Work Phone: Hematology/Oncology Comment on above: Consult with Dr. Yobany jara Start: 01-15-2023 Telephone encounter Rohan beal DO Work Phone: Hematology/Oncology Comment on above: Patient Question Start: 01-09-2023 Telephone encounter Rohan beal DO Work Phone: Hematology/Oncology Comment on above: Patient Question Start: 01-09-2023 End: 01-09-2023 ambulatory Rohan Alvarez DO Work Phone: Hematology/Oncology Comment on above: Malignant neoplasm o f upper lobe of right lung (HCC) (Primary Dx); Malignant neoplasm of unspecified part of unspecified bronchus or lung (HCC); Chest pain, unspecified type; Cardiac murmur Start: 01-09-2023 End: 01-09-2023 Patient encounter procedure Rohan Alvarez DO Work Phone: [facility] Start: 01-05-2023 End: 01-05-2023 Subsequent hospital visit by physician [facility] (I-Stat) Work Phone: Cat Scan Comment on above: Malignant neoplasm o f unspecified part of unspecified bronchus or lung (HCC) [C34.90] Start: 01-03-2023 Orders Only Rohan Yoon Work Phone: Hematology/Oncology Comment on above: Malignant neoplasm o f upper lobe of right lung (HCC) (Primary Dx); Malignant neoplasm of unspecified part of unspecified bronchus or lung (HCC) Start: 10-03-2022 Telephone encounter Rohan beal DO Work Phone: Hematology/Oncology Comment on above: Results (CXR) Start: 10-03-2022 End: 10-03-2022 Subsequent hospital visit by physician [facility] Work Phone: Radiology Comment on above: Malignant neoplasm o f upper lobe of right lung (HCC) [C34.11] Start: 10-03-2022 End: 10-03-2022 ambulatory Rohan Alvarez DO Work Phone: Hematology/Oncology Comment on above: Malignant neoplasm o f upper lobe of right lung (HCC) (Primary Dx) Start: 10-03-2022 End: 10-03-2022 Patient encounter procedure Rohan Alvarez DO Work Phone: [facility] Start: 10-02-2022 Orders Only Rohan Alvarez D O Work Phone: Hematology/Oncology Comment on above: Malignant neoplasm o f upper lobe of right lung (HCC) (Primary Dx) Start: 09-18-2022 Telephone encounter Rohan beal DO Work Phone: Hematology/Oncology Comment on above: Cough Start: 08-07-2022 End: 08-07-2022 Emergency department patient visit [facility]-Emergency Department Start: 07-20-2022 Telephone encounter Eduardo negro MD Work Phone: Cardiology Comment on above: Post Dc Program Call - Fyi Start: 07-13-2022 Telephone encounter Rohan beal DO Work Phone: Hematology/Oncology Comment on above: Follow Up Start: 07-11-2022 End: 07-11-2022 ambulatory Rohan Alvarez DO Work Phone: Hematology/Oncology Comment on above: Malignant neoplasm o f unspecified part of unspecified bronchus or lung (HCC) (Primary Dx) Start: 07-11-2022 End: 07-11-2022 Patient encounter procedure Rohan Alvarez DO Work Phone: [facility] Start: 06-23-2022 End: 06-23-2022 Patient encounter status Eduardo Lehman MD Work Phone: [facility]acic [facility] Start: 06-23-2022 End: 06-23-2022 Admission to same day surgery center Anesthesia Clearance Work Phone: Cardiothoracic Start: 06-23-2022 End: 06-23-2022 Patient encounter procedure Anesthesia Clearance Work Phone: Cardiothoracic Comment on above: Encounter for preope rative anesthesiology assessment for thoracic surgery (Primary Dx) Preop testing (Prima ry Dx) Start: 06-03-2022 End: 06-03-2022 Emergency department patient visit Korin Lakhani [facility] Start: 06-02-2022 End: 06-02-2022 Patient encounter procedure Eduardo Lehman MD Work Phone: Thoracic Clinic Comment on above: Malignant neoplasm o f middle lobe of right lung (HCC) (Primary Dx) Start: 06-02-2022 End: 06-02-2022 Subsequent hospital visit by physician Ct [address] [facility] (I-Stat) Radiology Comment on above: Malignant neoplasm o f unspecified part of unspecified bronchus or lung (HCC) [C34.90] Start: 05-18-2022 Telephone encounter Pamela Loredo RN He matology/Oncology Comment on above: Machine Rigger - O ther (Follow-up ) Start: 05-16-2022 Telephone encounter Rohan beal DO Work Phone: Hematology/Oncology Comment on above: Results (UA presumti ve UTI) Start: 05-16-2022 End: 05-16-2022 ambulatory Treatment Rm 6 Jas [facility] Work Phone: Hematology/Oncology Comment on above: Malignant neoplasm o f upper lobe of right lung (HCC) (Primary Dx) Start: 05-11-2022 Telephone encounter Rohan beal DO Work Phone: Hematology/Oncology Comment on above: Patient Update (Symp toms ) Start: 04-25-2022 Telephone encounter Rohan beal DO Work Phone: Hematology/Oncology Comment on above: Question Opened In Error Start: 04-25-2022 End: 04-25-2022 ambulatory Treatment Rm 8 [facility] Work Phone: Hematology/Oncology Comment on above: Malignant neoplasm o f upper lobe of right lung (HCC) (Primary Dx) Start: 04-24-2022 End: 04-24-2022 ambulatory Rohan Alvarez DO Work Phone: Hematology/Oncology Comment on above: Malignant neoplasm o f upper lobe of right lung (HCC) (Primary Dx) Start: 04-24-2022 End: 04-24-2022 Patient encounter procedure Rohan Alvarez DO Work Phone: [facility] Start: 04-11-2022 ambulatory Rohan Alvarez DO Hematol ogy/Oncology Comment on above: Constipation Start: 04-10-2022 End: 04-10-2022 ambulatory Treatment Rm 1 Jas [facility] Work Phone: Hematology/Oncology Comment on above: Malignant neoplasm o f upper lobe of right lung (HCC) (Primary Dx) Start: 04-05-2022 Telephone encounter Pamela Loredo RN He matology/Oncology Comment on above: Machine Rigger - O ther (C1D1 Post Treatment Call ) Start: 04-04-2022 Telephone encounter Pamela Loredo RN He matology/Oncology Comment on above: Machine Rigger - O ther (Antiemetic ) Start: 04-04-2022 End: 04-04-2022 ambulatory Treatment Rm 5 Jas [facility] Work Phone: Hematology/Oncology Comment on above: Malignant neoplasm o f upper lobe of right lung (HCC) (Primary Dx) Start: 04-03-2022 Telephone encounter Financial Navigator Jas Work Phone: Hematology/Oncology Comment on above: Benefits Investigati on Malignant neoplasm o f upper lobe of right lung (HCC) (Primary Dx); Acquired hypothyroidism Start: 03-31-2022 Telephone encounter Rohan beal DO Work Phone: Hematology/Oncology Comment on above: Patient Question Start: 03-30-2022 Telephone encounter Juanita Palacios Hematology/Oncology Comment on above: Psychosocial Assessm ent Start: 03-30-2022 End: 03-30-2022 adzing and boring machine helper [facility] Work Phone: Hematology/Oncology Comment on above: Malignant neoplasm o f upper lobe of right lung (HCC) (Primary Dx) Start: 03-29-2022 End: 03-29-2022 Subsequent hospital visit by physician Brandon Montero MD Work Phone: Admitting Comment on above: Bronchiolar disease [J98.09] Start: 03-24-2022 Preprocedural examination done Eduardo Lehman MD Work Phone: [facility] Work Phone: Start: 03-22-2022 End: 03-22-2022 Patient encounter procedure Rohan Alvarez DO Work Phone: [place] [facility] Start: 03-22-2022 End: 03-22-2022 ambulatory Rohan Alvarez DO Work Phone: Hematology/Oncology Comment on above: Malignant neoplasm o f upper lobe of right lung (HCC) (Primary Dx) Malignant neoplasm o f middle lobe of right lung (HCC) (Primary Dx) Start: 03-22-2022 End: 03-22-2022 Telemedicine consultation with patient Eduardo Lehman MD Work Phone: [facility] Start: 03-18-2022 [facility] Ad[facility] Comment on above: pre op bronch (Sched uled and confirmed with patient for Bronchoscopy on 03/29/2022.) Start: 03-17-2022 ambulatory Eduardo Thomas nd, MD Work Phone: [facility] Comment on above: Bronchoscopy Schedul ing (EBUS ) Bronchoscopy Schedul ing- CLEARED (initial bronch request ) Start: 03-17-2022 Telephone encounter Rohan beal DO Work Phone: Hematology/Oncology Comment on above: Follow Up Start: 03-16-2022 Telephone encounter Rohan beal DO Work Phone: Hematology/Oncology Comment on above: Results Start: 02-28-2022 ambulatory Rohan Yoon Work Phone: Hematology/Oncology Comment on above: spinal MRI result Start: 02-24-2022 End: 02-24-2022 ambulatory Pulm J-1 Pulmonary Medicine Comment on above: Spirometry Start: 02-24-2022 End: 02-24-2022 Patient encounter procedure Pulm Fct Lab J-1 [facility] Start: 02-24-2022 Telephone encounter Charlette DOUGLAS S [facility] [place] Comment on above: Results Start: 02-24-2022 End: 02-24-2022 Patient encounter procedure Sherri Torers MD Work Phone: Pulmonary Medicine Comment on above: Malignant neoplasm o f upper lobe of right lung (HCC) (Primary Dx); Cough; Lung nodule Start: 02-23-2022 End: 02-23-2022 ambulatory Rohan Alvarez DO Work Phone: Hematology/Oncology Comment on above: Neoplasm of lung (Pr imary Dx) Start: 02-23-2022 End: 02-23-2022 Patient encounter procedure Rohan Alvarez DO Work Phone: [facility] Start: 02-22-2022 End: 02-22-2022 Patient encounter procedure ROHAN ALVAREZ DO [facility] Start: 02-21-2022 ambulatory Rohan Yoon Work Phone: Hematology/Oncology Comment on above: PET scan Start: 02-21-2022 Telephone encounter Rohan beal DO Work Phone: Hematology/Oncology Comment on above: Results; C My Carole t Follow-up Start: 02-21-2022 End: 02-21-2022 Subsequent hospital visit by physician Pet Injection Ct Mobile [address] Comment on above: Neoplasm of lung [D4 9.1] Start: 02-16-2022 Telephone encounter Rohan beal DO Work Phone: Hematology/Oncology Comment on above: Patient Question Start: 02-13-2022 End: 02-13-2022 ambulatory Rohan Alvarez DO Work Phone: Hematology/Oncology Comment on above: Neoplasm of lung (Pr imary Dx); Lung nodule Start: 02-13-2022 End: 02-13-2022 Patient encounter procedure Rohan Alvarez DO Work Phone: [place] [facility] Start: 02-09-2022 Telephone encounter Rohan beal DO Work Phone: Hematology/Oncology Comment on above: New Patient Start: 08-13-2019 End: 08-13-2019 Office outpatient new 45 minutes Ama Ybarra [facility] Start: 12-23-2018 Patient encounter procedure Facility:[facility] Start: 07-18-2018 End: 07-18-2018 [facility] Procedures Date Procedure Procedure Detail Performing Clinician Start: 08-03-2025 X-ray of lumbosacral spine Dr. Angy Bautista MD Work Phone: Start: 06-25-2025 Follow-up visit Follow-up FERDINAND Raines NN FAST Start: 06-15-2025 Vitamin D, 25-hydrox y measurement Dr. Angy Bautista MD Work Phone: Comment on above: Vitamin D StatusDefi ciency: <20 ng/mL (50nmol/L)Insufficiency: 20-30 ng/mL (50-75 nmol/L)Sufficiency: 30-100 ng/mL (75-250 nmol/L)Toxicity: >100 ng/mL (>250 nmol/L) Start: 06-01-[address] Chantell Bautista MD Work Phone: Start: 05-31-2025 Glucose measurement Sha dy Geris DO Work Phone: Start: 05-31-2025 Glucose measurement Sha dy Geris DO Work Phone: Start: 05-30-2025 Glucose measurement Sha dy Geris DO Work Phone: Start: 05-30-2025 Glucose measurement Sha dy Geris DO Work Phone: Start: 05-30-2025 Glucose measurement Sha dy Geris DO Work Phone: Start: 05-30-2025 Glucose measurement Gen kareem [facility] Work Phone: Start: 05-30-2025 Glucose measurement Gen [facility] Work Phone: Start: 05-29-2025 Glucose measurement Gen [facility] Work Phone: Start: 05-29-2025 Echo tthrc r-t 2d w/ wom-mode compl spec&colr d Js Chenis DO Work Phone: Start: 05-29-2025 Duplex scan extracra nial art compl bi study Js Chenis DO Work Phone: Start: 05-29-2025 Glucose measurement Gen [facility] Work Phone: Start: 05-29-2025 Mri brain brain stem w/o contrast material Js Navas DO Work Phone: Start: 05-29-2025 Glucose measurement Gen [facility] Work Phone: Start: 05-29-2025 Basic metabolic pane l calcium total Js Navas DO Work Phone: Start: 05-29-2025 Glucose measurement Gen [facility] Work Phone: Start: 05-28-2025 Glucose measurement Gen [facility] Work Phone: Start: 05-28-2025 Calcium ionized Jasperdy G trupti DO Work Phone: Start: 05-28-2025 Lipid panel Jasperdy Iwona s DO Work Phone: Start: 05-28-2025 Radiologic exam ches t single view Timbo Holguin MD Work Phone: Start: 05-28-2025 Electrocardiogram Eyad Holguin MD Work Phone: Start: 05-28-2025 Ct angiography head w/contrast/noncontrast Timbo Holguin MD Work Phone: Start: 05-28-2025 Blood group typing Nelly Holguin MD Work Phone: Start: 05-28-2025 Ecg routine ecg w/le ast 12 lds w/i&r Timbo Holguin MD Work Phone: Start: 05-28-2025 Gases blood ph direc t jackie xcpt pulse oximitry Timbo Holguin MD Work Phone: Start: 05-28-2025 Activated partial thromboplastin time ratio Timbo Holguin MD Work Phone: Start: 05-28-2025 Blood typing serologic abo Timbo Holguin MD Work Phone: Start: 05-28-2025 Complete blood count with white cell differential, manual Timbo Holguin MD Work Phone: Start: 05-28-2025 Comprehensive metabo lic panel Timbo Holguin MD Work Phone: Start: 05-28-2025 OBTAIN VENOUS BLOOD GASES AND PERFORM Timbo Holguin MD Work Phone: Start: 05-28-2025 Ct head/brain w/o co ntrast material Timbo Holguin MD Work Phone: Start: 05-01-2023 Ct thorax w/contrast material Rohan Alvarez DO Work Phone: Start: 04-11-2023 Radionuclide imaging of perfusion of myocardium under exercise stress Dr. Mimi Quach Work Phone: Start: 01-30-[address] atten uation skull base mid-thigh Rohan Alvarez DO Work Phone: Start: 01-09-2023 Ecg routine ecg w/le ast 12 lds i&r only [facility] Provider Start: 01-05-2023 Ct thorax w/contrast material Rohan Alvarez DO Work Phone: Start: 10-03-2022 Radiologic exam ches t 2 views Rohan Alvarez DO Work Phone: Start: 08-07-2022 CT angiography of ch est with contrast Start: 08-07-2022 Plain chest X-ray Start: 07-10-2022 Adult depression scr eening assessment Rohan Masci DO Work Phone: Start: 06-23-2022 Iadna s aureus ampli fied probe tq Eduardo Lehman MD Work Phone: Start: 06-02-2022 Ct thorax w/contrast material Eduardo Lehman MD Work Phone: Start: 06-02-2022 Creatinine [Mass/vol ume] in Serum or Plasma [facility] Provider Start: 03-29-2022 [facility] incl fluor g dnce dx w/cell washg spx Eduardo Lehman MD Work Phone: Start: 03-29-2022 Gluc bld gluc mntr d ev cleared fda spec home use Brandon Montero MD Work Phone: Start: 02-21-[address] atten uation skull base mid-thigh Rohan Alvarez DO Work Phone: Start: 02-20-2022 Adult depression scr eening assessment Pet 2 Start: 10-23-2016 Colonoscopy Rohan Alvarez DO Work Phone: Hysterectomy (not du e to cancer) - Partial Lex Vogel Comment on above: 2005 Plan of Treatment Date Care Activity Detail Author Start: 05-29-2026 eGFR Diabetes eGFR Diabetes [facility] Start: 05-28-2026 Hepatitis B surface antibody level LDL Cholesterol [facility] Start: 01-05-2026 End: 01-05-2026 ambulatory 01/05/2026 11:30 AM EST Visit (SP) Office Hematology/Oncology [address] [place] [address] Rohan Alvarez DO [address] [place] [id number] 6 MO OV/CT&LABS 12/29* Hematology/Oncology Comment on above: 6 MO OV/CT&LABS 12/29* Start: 12-29-2025 End: 12-29-2025 Patient encounter procedure 12/29/2025 1:00 PM EST Appointment Cat Scan [address] [place] [address] CT CHEST WO IVCON Cat Scan Comment on above: CT CHEST WO IVCON Start: 12-29-2025 End: 12-29-2025 ambulatory 12/29/2025 12:45 PM EST Results Only [place] [facility] [facility] [address] [place] [address] CBC/CMP)(S)* [place] [facility] Comment on above: CBC/CMP)(S)* Start: 11-28-2025 Hemoglobin A1c measurement [facility] Start: 07-20-2025 COVID-19 Vaccine ( season) COVID-19 Vaccine () [facility] Start: 07-20-2025 Influenza vaccination Influenza Vaccine (#1) [facility] Start: 06-16-2025 End: 06-16-2025 ambulatory 06/16/2025 11:30 AM EDT Visit (SP) Office Hematology/Oncology [address] [place] [address] Rohan Alvarez DO [address] [place] [address] 6MO OV/LABS & CT 06/09 Hematology/Oncology Comment on above: 6MO OV/LABS & CT 06/09 Start: 06-09-2025 End: 06-09-2025 Patient encounter procedure 06/09/2025 1:00 PM EDT Appointment Cat Scan [address] [place] [address] Malignant neoplasm of unspecified part of unspecified bronchus or lung (HCC) [C34.90] Cat Scan Comment on above: Malignant neoplasm of unspecified part o f unspecified bronchus or lung (HCC) [C34.90] Start: 05-20-2025 End: 12-20-2025 CT Chest W contrast IV CT CHEST W IVCON Radiology Routine Malignant neoplasm of unspecified part of unspecified bronchus or lung (HCC) Expected: 05/20/2025 (Approximate), Expires: 12/20/2025 [facility] Work Phone: Comment on above: Expected: 05/20/2025 (Approximate), Expi res: 12/20/2025 Start: 02-25-2025 Covid-19 Vaccine ( season) Covid-19 Vaccine () [facility] Start: 12-04-2024 End: 12-04-2024 ambulatory 12/04/2024 11:30 AM EST OT/PT/Speech Visit [facility] [address] [place] [address] Kleber Willingham, PT [address] [place] [address] Posterior tibial tendon dysfunction [M76.829] [facility] Comment on above: Posterior tibial tendon dysfunction [M76 .829] Start: 11-20-2024 End: 11-20-2024 ambulatory 11/20/2024 11:50 AM EST Visit (SP) Office Hematology/Oncology [address] [place] [address] Rohan Alvarez DO [address] [place] [address] 3 month f/u Hematology/Oncology Comment on above: 3 month f/u Start: 11-19-2024 Advance Directive Discussion Advance Directive Discussion [facility] Start: 11-04-2024 End: 02-03-2025 CREATININE BLD CREATININE BLD Lab Routine Malignant neoplasm of unspecified part of unspecified bronchus or lung (HCC) Expected: 11/04/2024 (Approximate), Expires: 02/03/2025 [facility] Comment on above: Expected: 11/04/2024 (Approximate), Expi res: 02/03/2025 Start: 11-04-2024 End: 09-04-2025 CT Chest W contrast IV [facility] Work Phone: Comment on above: Expected: 11/04/2024 (Approximate), Expi res: 09/04/2025 Start: 11-04-2024 End: 11-04-2024 Patient encounter procedure 11/04/2024 10:20 AM EST Appointment Cat Scan [address] [place] [address] Malignant neoplasm of unspecified part of unspecified bronchus or lung (HCC) [C34.90] Cat Scan Comment on above: Malignant neoplasm of unspecified part o f unspecified bronchus or lung (HCC) [C34.90] Start: 11-04-2024 End: 11-04-2024 ambulatory 11/04/2024 10:00 AM EST Results Only [place] [facility] [address] [place] [address] CBC/CMP/TSH/T4/Cortisol 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 [address] [place] [address] 3 MO OV/LAB & CT 07/29* Hematology/Oncology Comment on above: 3 MO OV/LAB & CT 07/29* Start: 07-29-2024 End: 07-29-2024 Patient encounter procedure 07/29/2024 10:40 AM EDT Appointment Cat Scan [address] [place] [address] Malignant neoplasm of unspecified part of unspecified bronchus or lung (HCC) [C34.90]; Lung nodule [R91.1] Cat Scan Comment on above: Malignant neoplasm of unspecified part o f unspecified bronchus or lung (HCC) [C34.90]; Lung nodule [R91.1] Start: 07-29-2024 End: 07-29-2024 ambulatory 07/29/2024 10:15 AM EDT Results Only [place] [facility] [address] [place] [address] CBC/CMP(S)/TSH/T4/Corti oscar* [facility] Comment on above: CBC/CMP(S)/TSH/T4/Cortisol* Start: 07-20-2024 Covid-19 Vaccine ( season) Covid-19 Vaccine () [facility] Start: 07-20-2024 Covid-19 Vaccine ( season) Covid-19 Vaccine () [facility] Start: 07-20-2024 Influenza vaccination [facility] Start: 05-06-2024 End: 05-06-2024 ambulatory 05/06/2024 11:30 AM EDT Visit (SP) Office Hematology/Oncology [address] [place] [address] Rohan Alvarez DO [address] [place] [address] 6MO OV/LABS & CT 04/29* Hematology/Oncology Comment on above: 6MO OV/LABS & CT 04/29* Start: 04-29-2024 End: 04-29-2024 Patient encounter procedure 04/29/2024 11:20 AM EDT Appointment Cat Scan [address] [place] [address] Malignant neoplasm of upper lobe of right lung (HCC) [C34.11] Cat Scan Comment on above: Malignant neoplasm of upper lobe of righ t lung (HCC) [C34.11] Start: 04-29-2024 End: 04-29-2024 ambulatory 04/29/2024 11:00 AM EDT Results Only [place] [facility] [address] [place] [address] CBC/CMP/TSH/T4/CORTISOL * [facility] Comment on above: CBC/CMP/TSH/T4/CORTISOL* Start: 01-05-2024 Hepatitis B surface antibody level LDL CHOLESTEROL [facility] Start: 11-19-2023 Advance Directive Discussion Advance Directive Discussion [facility] Start: 11-19-2023 Behavioral Health Screening Behavioral Health Screening [facility] Start: 10-22-2023 End: 01-21-2024 CREATININE, ISTAT CREATININE, ISTAT Lab Routine Primary lung adenocarcinoma, right (HCC) Expected: 10/22/2023, Expires: 01/21/2024 [facility] Work Phone: Comment on above: Expected: 10/22/2023, Expires: Start: 07-20-2023 Covid-19 Vaccine () Covid-19 Vaccine () [facility] Start: 07-20-2023 Influenza vaccination [facility] Start: 07-10-2023 Adult depression screening assessment DEPRESSION SCREENING [facility] Start: 07-05-2023 Hemoglobin A1c measurement HbA1C [facility] Start: 07-05-2023 Hemoglobin A1c/Hemoglobin.total in Blood HBA1C [facility] Start: 02-20-2023 Adult depression screening assessment DEPRESSION SCREENING [facility] Start: 01-05-2023 End: 03-07-2023 Basic metabolic 2000 panel - Serum or Plasma BASIC METABOLIC PNL Lab STAT Malignant neoplasm of upper lobe of right lung (HCC) Malignant neoplasm of unspecified part of unspecified bronchus or lung (HCC) Expected: 01/05/2023, Expires: 03/07/2023 [facility] Work Phone: Comment on above: Expected: 01/05/2023, Expires: Start: 01-05-2023 End: 03-07-2023 CBC W Auto Differential panel - Blood CBC + DIFF Lab STAT Malignant neoplasm of upper lobe of right lung (HCC) Malignant neoplasm of unspecified part of unspecified bronchus or lung (HCC) Expected: 01/05/2023, Expires: 03/07/2023 [facility] Work Phone: Comment on above: Expected: 01/05/2023, Expires: 3 Start: 01-05-2023 End: 03-07-2023 Hepatic function 2000 panel - Serum or Plasma HEPATIC FUNCTION PNL Lab Routine Malignant neoplasm of upper lobe of right lung (HCC) Malignant neoplasm of unspecified part of unspecified bronchus or lung (HCC) Expected: 01/05/2023, Expires: 03/07/2023 [facility] Work Phone: Comment on above: Expected: 01/05/2023, Expires: 3 Start: 11-19-2022 ADVANCE DIRECTIVE DISCUSSION ADVANCE DIRECTIVE DISCUSSION [facility] Start: 11-19-2022 DEPRESSION ASSESSMENT DEPRESSION ASSESSMENT [facility] Start: 10-05-2022 Hemoglobin A1c/Hemoglobin.total in Blood HBA1C [facility] Start: 10-03-2022 End: 12-03-2022 CBC W Auto Differential panel - Blood CBC + DIFF Lab STAT Malignant neoplasm of upper lobe of right lung (HCC) Expected: 10/03/2022, Expires: 12/03/2022 [facility] Work Phone: Comment on above: Expected: 10/03/2022, Expires: 3 Start: 10-03-2022 End: 12-03-2022 Comprehensive metabolic 2000 panel - Serum or Plasma COMP METABOLIC PANEL Lab Routine Malignant neoplasm of upper lobe of right lung (HCC) Expected: 10/03/2022, Expires: 12/03/2022 [facility] Work Phone: Comment on above: Expected: 10/03/2022, Expires: 3 Start: 10-03-2022 End: 11-01-2023 Radiologic exam chest 2 views XR CHEST 2V FRONTAL/LAT Radiology Routine Malignant neoplasm of upper lobe of right lung (HCC) Expected: 10/03/2022, Expires: 11/01/2023 [facility] Work Phone: Comment on above: Expected: 10/03/2022, Expires: 3 Start: 08-07-2022 [facility] Work Phone: Start: 07-20-2022 Influenza vaccination INFLUENZA (#1) [facility] Start: 05-16-2022 End: 07-16-2022 Thyrotropin [Units/volume] in Serum or Plasma TSH BLD Lab Routine Malignant neoplasm of upper lobe of right lung (HCC) Expected: 05/16/2022, Expires: 07/16/2022 [facility] Work Phone: Comment on above: Expected: 05/16/2022, Expires: 2 Start: 03-17-2022 End: 05-17-2022 Comprehensive metabolic 2000 panel - Serum or Plasma COMP METABOLIC PANEL Lab STAT Malignant neoplasm of upper lobe of right lung (HCC) Expected: 03/17/2022, Expires: 05/17/2022 [facility] Work Phone: Comment on above: Expected: 03/17/2022, Expires: 2 Start: 03-17-2022 End: 07-17-2022 SARS-CoV-2 (COVID-19) RNA [Presence] in Respiratory specimen by RENZO with probe detection INTERMEDIATE RAPID COVID Microbiology Routine Malignant neoplasm of upper lobe of right lung (HCC) Expected: 03/17/2022, Expires: 07/17/2022 [facility] Work Phone: Comment on above: Expected: 03/17/2022, Expires: 2 Start: 01-16-2022 COVID-19 VACCINE (5 - Booster) COVID-19 VACCINE (5 - Booster) [facility] Start: 11-19-2021 ADVANCE DIRECTIVE DISCUSSION ADVANCE DIRECTIVE DISCUSSION [facility] Start: 11-19-2021 DEPRESSION ASSESSMENT DEPRESSION ASSESSMENT [facility] Start: 11-10-2021 COVID-19 VACCINE (5 - Booster) COVID-19 VACCINE (5 - Booster) [facility] Start: 10-23-2021 Colonoscopy COLONOSCOPY [facility] Start: 10-23-2021 COLORECTAL CANCER SCREENING COLORECTAL CANCER SCREENING [facility] Start: 2021 Respiratory Syncytial Virus Immunization: Risk, 60-74 Risk, or 75+ (1 - 1-dose 75+ series) Respiratory Syncytial Virus Immunization: Risk, 60-74 Risk, or 75+ (1 - 1-dose 75+ series) [facility] Start: 2021 RSV Vaccine (1 - 1-dose 75+ series) RSV Vaccine (1 - 1-dose 75+ series) [facility] Start: 11-06-2019 DIABETES SCREEN DIABETES SCREEN [facility] Start: 08-13-2019 Procedure Education Eprescribed prescriptions ([id number]) [facility] Work Phone: Start: 2011 BONE DENSITY BONE DENSITY [facility] Start: 2011 Bone Density Screening Bone Density Screening [facility] Start: 2011 Fall risk assessment Falls Risk Assessment [facility] Start: 2011 PNEUMOVAX AGE 65 AND OVER WITH 5YR LOOKBACK (#1) PNEUMOVAX AGE 65 AND OVER WITH 5YR LOOKBACK (#1) [facility] Start: 2011 Screening for osteoporosis Bone Density Screening [facility] Start: 02-17-2011 Medicare Annual Wellness Visit Medicare Annual Wellness Visit [facility] Start: 2006 Hepatitis B Vaccine (1 of 3 - Risk 3-dose series) Hepatitis B Vaccine (1 of 3 - Risk 3-dose series) [facility] Start: 2006 RSV Vaccine (1 - 1-dose 60+ series) RSV Vaccine (1 - 1-dose 60+ series) [facility] Start: 02-28-1996 SHINGRIX VACCINE (1 of 2) SHINGRIX VACCINE (1 of 2) [facility] Start: 1991 COLOGUARD (FIT-DNA) COLOGUARD (FIT-DNA) [facility] Start: [address] COLONOGRAPHY [facility] Start: 1991 FECAL OCCULT BLOOD FECAL OCCULT BLOOD [facility] Start: 1991 LIPID SCREEN LIPID SCREEN [facility] Start: 1991 SIGMOIDOSCOPY SIGMOIDOSCOPY [facility] Start: 1986 Screening for malignant neoplasm of breast Mammogram [facility] Start: 1965 SHINGRIX VACCINE (1 of 2) SHINGRIX VACCINE (1 of 2) [facility] Start: 1965 Urine microalbumin profile [facility] Start: 02-28-1964 ANNUAL PCP TEAM CHRONIC DISEASE VISIT ANNUAL PCP TEAM CHRONIC DISEASE VISIT [facility] Start: 02-28-1964 Anxiety Screening Anxiety Screening [facility] Start: 02-28-1964 BP CONTROLLED (<130/80) BP CONTROLLED (<130/80) [facility] Start: 02-28-1964 Depression Screening Depression Screening [facility] Start: 02-28-1964 Hepatitis B surface antibody level LDL CHOLESTEROL [facility] Start: 02-28-1964 HEPATITIS C SCREENING HEPATITIS C SCREENING [facility] Start: 02-28-1964 Hepatitis C screening Hepatitis C Screening [facility] Start: 1958 Adult depression screening assessment [facility] Start: 02-28-1956 3 comp foot exam completed DIABETIC FOOT EXAM [facility] Start: 02-28-1956 Diabetic foot examination Diabetic Foot Exam [facility] Start: 02-28-1956 Glaucoma screening [facility] Start: 02-28-1956 Hepatitis B screening URINE ALBUMIN:CREATININE RATIO [facility] Start: 02-28-1956 Hepatitis C antibody, confirmatory test DILATED RETINAL EXAM [facility] Start: 02-28-1956 Urine screening for protein Urine (micro)albumin/creatini ne ratio - Diabetes [facility] Start: 02-28-1952 PNEUMOCOCCAL: 65+ (1 - PCV) PNEUMOCOCCAL: 65+ (1 - PCV) [facility] Start: 1951 Hemoglobin A1c/Hemoglobin.total in Blood HBA1C [facility] Start: 1949 Medicare Wellness Visit Medicare Wellness Visit [facility] Start: 1946 Tetanus vaccination Tetanus: Every 10yrs [facility] Biopsy bone trocar/n eedle deep IMAGING GUIDED BIOPSY VERTEBRA OR FEMUR Radiology STAT Malignant neoplasm of upper lobe of right lung (HCC) Abnormal MRI, thoracic spine Ordered: 03/01/2022 [facility] Work Phone: Comment on above: Ordered: 03/01/2022 End: 04-03-2023 CBC W Auto Differential panel - Blood CBC + DIFF Lab STAT Malignant neoplasm of upper lobe of right lung (HCC) Every 3 weeks for 18 Occurrences starting 04/03/2022 until 04/03/2023 [facility] [facility] Work Phone: Comment on above: Every 3 weeks for 18 Occurrences startin g 04/03/2022 until 04/03/2023 End: 04-03-2023 Comprehensive metabolic 2000 panel - Serum or Plasma COMP METABOLIC PANEL Lab STAT Malignant neoplasm of upper lobe of right lung (HCC) Every 3 weeks for 18 Occurrences starting 04/03/2022 until 04/03/2023 [facility] Work Phone: Comment on above: Every 3 weeks for 18 Occurrences startin g 04/03/2022 until 04/03/2023 End: 04-03-2023 Cortisol [Mass/volume] in Serum or Plasma CORTISOL BLD Lab Routine Malignant neoplasm of upper lobe of right lung (HCC) Acquired hypothyroidism Every 3 weeks for 18 Occurrences starting 04/03/2022 until 04/03/2023 [facility] Work Phone: Comment on above: Every 3 weeks for 18 Occurrences startin g 04/03/2022 until 04/03/2023 CT Chest W contrast IV CT CHEST W IVCON Radiology Routine Malignant neoplasm of upper lobe of right lung (HCC) Malignant neoplasm of unspecified part of unspecified bronchus or lung (HCC) 04/29/2024 11:56 AM [facility] Work Phone: End: 06-05-2025 CT Chest W contrast IV CT CHEST W IVCON Radiology Routine Malignant neoplasm of unspecified part of unspecified bronchus or lung (HCC) Lung nodule 1 Occurrences starting 05/06/2024 until 06/05/2025 [facility] Work Phone: Comment on above: 1 Occurrences starting 05/06/2024 until 06/05/2025 CT Chest W contrast IV CT CHEST W IVCON Radiology Routine Malignant neoplasm of unspecified part of unspecified bronchus or lung (HCC) Lung nodule 07/29/2024 11:21 AM [facility] Work Phone: End: 08-10-2023 CT CHEST W IVCON CT CHEST W IVCON Radiology Routine Malignant neoplasm of unspecified part of unspecified bronchus or lung (HCC) 1 Occurrences starting 07/11/2022 until 08/10/2023 [facility] Work Phone: Comment on above: 1 Occurrences starting 07/11/2022 until 08/10/2023 End: 03-01-2024 CT CHEST W IVCON CT CHEST W IVCON Radiology Routine Malignant neoplasm of unspecified part of unspecified bronchus or lung (HCC) Malignant neoplasm of upper lobe of right lung (HCC) 1 Occurrences starting 01/31/2023 until 03/01/2024 [facility] Work Phone: Comment on above: 1 Occurrences starting 01/31/2023 until 03/01/2024 End: 06-01-2024 CT CHEST W IVCON CT CHEST W IVCON Radiology Routine Malignant neoplasm of unspecified part of unspecified bronchus or lung (HCC) 1 Occurrences starting 05/03/2023 until 06/01/2024 [facility] Work Phone: Comment on above: 1 Occurrences starting 05/03/2023 until 06/01/2024 End: 12-01-2024 CT CHEST W IVCON CT CHEST W IVCON Radiology Routine Malignant neoplasm of upper lobe of right lung (HCC) Malignant neoplasm of unspecified part of unspecified bronchus or lung (HCC) 1 Occurrences starting 11/02/2023 until 12/01/2024 [facility] Work Phone: Comment on above: 1 Occurrences starting 11/02/2023 until 12/01/2024 End: 08-02-2026 CT Chest WO contrast CT CHEST WO IVCON Radiology Routine Malignant neoplasm of unspecified part of unspecified bronchus or lung (HCC) 1 Occurrences starting 07/03/2025 until 08/02/2026 [facility] Work Phone: Comment on above: 1 Occurrences starting 07/03/2025 until 08/02/2026 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 [facility] Work Phone: Comment on above: Release Upon Ordering for 1 Occurrences starting 03/29/2022, 1 completed End: 03-17-2023 ECG COMPLETE ECG COMPLETE ECG STAT Malignant neoplasm of upper lobe of right lung (HCC) 1 Occurrences starting 03/17/2022 until 03/17/2023 [facility] Work Phone: Comment on above: 1 Occurrences starting 03/17/2022 until 03/17/2023 End: 01-09-2024 ECG COMPLETE ECG COMPLETE ECG Routine Malignant neoplasm of unspecified part of unspecified bronchus or lung (HCC) Chest pain, unspecified type Cardiac murmur 1 Occurrences starting 01/09/2023 until 01/09/2024 [facility] Work Phone: Comment on above: 1 Occurrences starting 01/09/2023 until 01/09/2024 ECG COMPLETE ECG COMPLETE ECG 01/09/2023 12:41 PM EST [facility] End: 01-09-2024 Echocardiography ECHO Cardiology Routine Malignant neoplasm of unspecified part of unspecified bronchus or lung (HCC) Chest pain, unspecified type Cardiac murmur 1 Occurrences starting 01/09/2023 until 01/09/2024 [facility] Work Phone: Comment on above: 1 Occurrences starting 01/09/2023 until 01/09/2024 End: 03-26-2023 LUNG DIFFUSION CAPACITY (DLCO) LUNG DIFFUSION CAPACITY (DLCO) PFT Routine Malignant neoplasm of upper lobe of right lung (HCC) 1 Occurrences starting 02/24/2022 until 03/26/2023 [facility] Work Phone: Comment on above: 1 Occurrences starting 02/24/2022 until 03/26/2023 End: 03-26-2023 LUNG VOLUMES LUNG VOLUMES PFT Routine Malignant neoplasm of upper lobe of right lung (HCC) 1 Occurrences starting 02/24/2022 until 03/26/2023 [facility] Work Phone: Comment on above: 1 Occurrences starting 02/24/2022 until 03/26/2023 End: 03-15-2023 Mri brain brain stem w/o w/contrast material MRI BRAIN WO/W IVCON Radiology Routine Neoplasm of lung Lung nodule 1 Occurrences starting 02/13/2022 until 03/15/2023 [facility] Work Phone: Comment on above: 1 Occurrences starting 02/13/2022 until 03/15/2023 End: 03-23-2023 Mri spinal canal thoracic w/o & w/contr matrl MRI THORACIC SPINE WO/W IVCON Radiology STAT Localized swelling, mass and lump, trunk Cancer of trachea, bronchus, and lung (HCC) Abnormal positron emission tomography (PET) scan 1 Occurrences starting 02/21/2022 until 03/23/2023 [facility] Work Phone: Comment on above: 1 Occurrences starting 02/21/2022 until 03/23/2023 End: 02-08-2024 NM PET/CT SKULL-THIGH SUBSEQUENT NM PET/CT SKULL-THIGH SUBSEQUENT Radiology Routine Malignant neoplasm of unspecified part of unspecified bronchus or lung (HCC) Chest pain, unspecified type Cardiac murmur 1 Occurrences starting 01/09/2023 until 02/08/2024 [facility] Work Phone: Comment on above: 1 Occurrences starting 01/09/2023 until 02/08/2024 Patient Education ED Chest Pain, Uncertain Cause [facility] Work Phone: Patient referral [facility] Work Phone: End: 03-15-[address] attenuation skull base mid-thigh NM PET/CT SKULL-THIGH INITIAL Radiology STAT Neoplasm of lung Lung nodule 1 Occurrences starting 02/13/2022 until 03/15/2023 [facility] Work Phone: Comment on above: 1 Occurrences starting 02/13/2022 until 03/15/2023 End: 08-10-2023 Radiologic exam chest 2 views XR CHEST 2V FRONTAL/LAT Radiology Routine Malignant neoplasm of unspecified part of unspecified bronchus or lung (HCC) 1 Occurrences starting 07/11/2022 until 08/10/2023 [facility] Work Phone: Comment on above: 1 Occurrences starting 07/11/2022 until 08/10/2023 End: 03-26-2023 SPIROMETRY WITH DILATOR IF OBSTRUCTED SPIROMETRY WITH DILATOR IF OBSTRUCTED PFT Routine Malignant neoplasm of upper lobe of right lung (HCC) 1 Occurrences starting 02/24/2022 until 03/26/2023 [facility] Work Phone: Comment on above: 1 Occurrences starting 02/24/2022 until 03/26/2023 End: 04-03-2023 T4 FREE/FREE THYROX T4 FREE/FREE THYROX Lab Routine Malignant neoplasm of upper lobe of right lung (HCC) Acquired hypothyroidism Every 3 weeks for 18 Occurrences starting 04/03/2022 until 04/03/2023 [facility] Work Phone: Comment on above: Every 3 weeks for 18 Occurrences startin g 04/03/2022 until 04/03/2023 End: 04-03-2023 Thyrotropin [Units/volume] in Serum or Plasma TSH BLD Lab Routine Malignant neoplasm of upper lobe of right lung (HCC) Acquired hypothyroidism Every 3 weeks for 18 Occurrences starting 04/03/2022 until 04/03/2023 [facility] Work Phone: Comment on above: Every 3 weeks for 18 Occurrences startin g 04/03/2022 until 04/03/2023 End: 09-27-2025 XR Foot - bilateral AP and Lateral and oblique XR FOOT GENERAL 3V AP/LAT/OBL BILATERAL Radiology Routine Bilateral foot pain 1 Occurrences starting 08/28/2024 until 09/27/2025 [facility] Work Phone: Comment on above: 1 Occurrences starting 08/28/2024 until 09/27/2025 XR Foot - bilateral AP and Lateral and oblique XR FOOT GENERAL 3V AP/LAT/OBL BILATERAL Radiology Routine Bilateral foot pain 09/01/2024 1:56 PM EDT [facility] Work Phone: [facility] Work Phone: [facility] Immunizations Immunization Date Immunization Notes Care Provider Shahida [facility] 08-27-2024 influenza virus vacc ine, unspecified formulation Rohan Alvarez DO Work Phone: [facility] 10-30-2022 influenza virus vacc ine, unspecified formulation Ct (I-Stat) Work Phone: [facility] Payers Date Payer Category Payer Self-pay [id number] 2016 Managed Care (unspecified) [employer] OTHER AFTER MEDICARE [id number] 2016 Private Health Insurance [employer]NA HUMANA MEDICARE SUPPLEMENT [id number] 2016-Present [phone] [address] [address] [place] [address] Indemnity [id number] 2016 Private Health Insurance [id number] 2016 Private Health Insurance [id number] 2011 Medicare MEDICARE MEDICAR E A AND B [id number] 2011-Present [phone] [place] [address] Medicare [id number] 2011 Medicare [id number] 2011 Medicare [id number] 1945 Unknown [id number] 2.16.840.1.665432.3.579. 2.356 1945 Unknown [id number] 2.16.840.1.984288.3.579. 2.1243 1945 Unknown [id number] 2.16.840.1.940268.3.579. 2.1243 1945 Unknown [id number] 2.16.840.1.234204.3.579. 2.1243 1945 Unknown [id number] 2.16.840.1.511393.3.579. 2.1242 1945 Unknown [id number] 2.16.840.1.700476.3.579. 2.1242 1945 Unknown [id number] 2.840.1.103423.3.579. 2.1242 1945 Unknown [id number] 2.840.1.155035.3.579. 2.1242 1945 Unknown [id number] 2.840.1.323467.3.579. 2.1242 1945 Unknown [id number] 2.840.1.478334.3.579. 2.1242 1945 Unknown [id number] 2.840.1.536629.3.579. 2.1242 1946 Unknown [id number] 2.840.1.109367.3.579. 2.1242 1946 Unknown [id number] 2.840.1.411291.3.579. 2.1242 1945 Unknown [id number] 2.840.1.878431.3.579. 2.903 1945 Unknown [id number] 2.840.1.916149.3.579. 2.900 1945 Unknown [id number] 2.840.1.200839.3.579. 2.903 Medicare [id number] Unknown Unknown [id number] 2.840.1.096103.3.579. 2.462 Unknown [id number] 2.840.1.481953.3.579. 2.462 Unknown [id number] 2.840.1.718477.3.579. 2.462 Unknown [id number] 2.840.1.631251.3.579. 2.462 Unknown [id number] 2.16.840.1.271378.3.579. 2.462 Social History Date Type Detail Facility Alcohol use: Alcohol use: [facility] Work Phone: Start: 01-09-2023 End: 05-30-2025 Caffeine Use Caffeine Use [facility] Work Phone: Comment on above: 12 oz am Drug Use: Drug Use: [facility] Work Phone: Living Situation: Living Situation: [facility] Work Phone: Tobacco Use: Tobacco Use: [facility] Work Phone: Start: 02-22-2011 End: 05-30-2025 Tobacco smoking status NHIS Ex-smoker [facility] Work Phone: Start: 02-22-2011 End: 05-30-2025 Tobacco use and exposure Smokeless tobacco non-user [facility] Work Phone: Start: 02-13-2022 End: 07-03-2025 Alcohol intake Current drinker of alcohol (finding) [facility] Start: 02-22-2011 History SDOH Alcohol Comment ocas wine [facility] Start: 1945 Sex Assigned At Female [facility] Start: 02-11-2022 End: 10-03-2022 Exposure to SARS-CoV-2 (event) Not sure [facility] Start: 03-22-1967 End: 03-22-1972 History of tobacco use Cigarette Smoker [facility] Work Phone: Start: 02-24-2022 End: 07-07-2022 Tobacco Comment social smoker [facility] Start: 03-22-1967 End: 03-22-1972 History of tobacco use Current smoker [facility] Work Phone: Start: 08-07-2022 End: 08-17-2023 Tobacco smoking consumption unknown [facility] Start: 01-09-2023 End: 05-30-2025 Tobacco use panel [facility] Start: 10-20-2012 Adult Depression Screening Assessment 0 [facility] Start: 06-16-2022 Gender identity Identifies as female gender (finding) [facility] Start: 02-11-2022 Sexual orientation Heterosexual (williams arora) [facility] Has the electric, ga s, oil, or water company threatened to shut off services in your home in past 12Mo No [facility] (I/We) worried wheth er (my/our) food would run out before (I/we) got money to buy more. Never true [facility] Start: 1945 Sex assigned at Not on file [facility] Start: 08-17-2023 Tobacco smoking stat us NHIS Never smoked tobacco (finding) [facility] How often to you hav e a drink containing alcohol? Never [facility] Functional Status Date Assessment Result Facility 07-03-2025 Total score [AUDIT-C] 0 07/03/20 10:53 AM EDT Chris Ward MA [facility] Mental Status Date Assessment Result Facility 08-07-2022 Cognitive function Voice/Name [facility] Work Phone: Clinical Notes 02-09-2022 to 08-05-2025 Assessment & Plan Note - Axel Vizcaino CNP - 07/22/2025 8:43 AM EDTAssessment & Plan Note - Axel Vizcaino CNP - 07/22/2025 8:43 AM EDTPatient InstructionsAttachments Note Date & Type Note Facility 08-05-2025 Radiology Diagnostic study note [facility] Imaging Services [address] [place] [address] [id number] L/S Spine Min 4 Views MR#: [id number] Acct: [id number] Name: LIDIA ORTIZ Rep #: [id number] : 1945 F 80 From: Thiago Chambers MD PCP: Dr. Angy Bautista MD Status: REG CLI Study:L/S Spine Min 4 Views Date of Exam: 08/03/25 Exam# [id number] Ordering Dr: Tanya Mahoney PROCEDURE: L/S SPINE MIN 4 VIEWS 08/03/2025 REASON FOR EXAM: LUMBER DDD TECHNIQUE: Procedure Code: RADSPLS Modality: DX Procedure: L/S SPINE MIN 4 VIEWS COMPARISON: None. FINDINGS: Anterolisthesis L4 on L5 by 3 mm. Multilevel degenerate changes predominantly at L3-L4 and L5-S1 where there is disc space narrowing, sclerotic endplates and facet joint arthropathy. No acute bony abnormalities. No spondylolysis. Vascular atherosclerotic calcifications of the aorta. Large amount of fecal load in the colon. RAD/L/S Spine Min 4 Views IMPRESSION: Anterolisthesis L4 on L5 by 3 mm. Multilevel degenerate changes predominantly at L3-L4 and L5-S1 where there is disc space narrowing, sclerotic endplates and facet joint arthropathy. Reading Location: [facility] CC: [facility]; Dr. Angy Bautista MD ~ Dry Plasterer: Signed [facility] 07-22-2025 Evaluation + Plan note Associated Problem(s): Stroke (cerebrum) (HCC) Discontinue aspirin 81 mg daily. Continue Plavix 75 mg daily and rosuvastatin 5 mg daily. Blood pressure elevated today. Encouraged to continue to monitor closely at home. Encouraged to keep log of readings for review at follow-up appointments. Lipid panel 05/28/2025: Cholesterol 164, Triglycerides 64, HDL 65, and LDL 86. Hemoglobin A1c 05/28/2025: 7.3% Encouraged to keep mentally and physically active. Monitor for change in memory mood. Stroke signs/symptoms discussed along with lifestyle changes with stroke education placed in AVS for review. Follow-up in 6 months. [facility] 07-22-2025 Miscellaneous Notes Associated Problem(s): Stroke (cerebrum) (HCC) Discontinue aspirin 81 mg daily. Continue Plavix 75 mg daily and rosuvastatin 5 mg daily. Blood pressure elevated today. Encouraged to continue to monitor closely at home. Encouraged to keep log of readings for review at follow-up appointments. Lipid panel 05/28/2025: Cholesterol 164, Triglycerides 64, HDL 65, and LDL 86. Hemoglobin A1c 05/28/2025: 7.3% Encouraged to keep mentally and physically active. Monitor for change in memory mood. Stroke signs/symptoms discussed along with lifestyle changes with stroke education placed in AVS for review. Follow-up in 6 months. 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 HPI: The patient is a 80-year-old female who has a past medical history significant for type 2 diabetes (metformin), hypertension and hyperlipidemia. She underwent evaluation for a cough which had been persistent for about 3 months. She had no complaints of dyspnea fever or wheezing. A CT of the chest was performed on 01/24/2022. There was a 3.5 x 3.8 x 4.3 cm mass in the right upper lobe. This abutted the right hilar region. There was no demonstrated pleural abnormality. Mediastinum and hilar regions appeared normal otherwise. There were multilevel degenerative changes of thoracic spine with a 1.4 cm area of sclerosis observed in the posterior aspect of the T9 or T12 vertebrae at the level of the pedicle on the right side for which correlation with bone scan was recommended. There was a 1 cm cyst in the medial inferior aspect of the right lobe of the liver. Patient underwent a CT-guided right lung biopsy on 02/06/2022. Pathology: -Non-small cell carcinoma, favor adenocarcinoma consistent with lung primary. Specimen was positive for TTF-1, CK7, CK 8 in rare cells that showed positivity for CK20. Complicated by pneumothorax that required chest tube. She underwent MRI of the brain which demonstrated no evidence of metastatic disease. PET scan with results noted. She also had an MRI of the thoracic spine. Images have been loaded. She underwent CT-guided biopsy of the suspicious lesion in T10 vertebral body on 03/09/2022. Pathology demonstrated fragments of sclerotic bone with bone marrow fibrosis and edema and no evidence of carcinoma. She underwent surgical evaluation at [facility]. Previous therapy: 1) Neoadjuvant carboplatin, pemetrexed and nivolumab. Underwent right VATS, right middle lobectomy, right lower lung wedge resection, mediastinal lymphadenectomy and intercostal nerve block on 06/26/2022. Pathology: A. Lymph node #7, excision: - Three (3) lymph nodes negative for neoplasm. B. Lymph node #10R, excision: - One (1) lymph node negative for neoplasm. C. Lymph node #10R, excision: - One (1) lymph node negative for neoplasm. D. Lymph node #11R, excision: - One (1) lymph node negative for neoplasm. E. Lymph node #11R, excision: - One (1) lymph node negative for neoplasm. F. Lymph node #11R, excision: - One (1) lymph node negative for neoplasm. G. Right lung, middle lobe, lobectomy: - Invasive adenocarcinoma, acinar predominant, 0.5 cm - Non-necrotizing granulomas. H. Right lung, lower lobe, wedge excision: - Patchy subpleural fibrosis with non-necrotizing granulomas, dystrophic calcium and reactive epithelial atypia. - Negative for neoplasm. I. Lymph node #4R, excision: - Three (3) lymph nodes negative for neoplasm. J. Lymph node #2R, excision: - Three (3) lymph nodes negative for neoplasm Presents for ongoing oncologic management. Interim history: Had stroke 05/28. Frontal BARAHONA and vertigo. Recalls vomiting on two occasions. [place] like she may have aspirated. On ASA and Plavix. No residual neurologic symptoms. Discharged 06/01. Started using BiPAP about 6-8 weeks ago. No frequent cough. Feels like she's getting better sleep. No significant dyspnea. Home blood pressures--SBP ~129 mmHg. Previous microablation for right sided sciatica. PMH, medications and allergies personally reviewed by me today. Any changes documented in appropriate section. ROS: Constitutional: Denies episodes of fever and night sweats. Not significantly fatigued. Neuro: Denies BARAH[place], vertigo, dizziness and imbalance. Denies symptoms of neuropathy. HEENT: No recent change in voice, vision or hearing. Resp: See above. CVS: Denies PND, orthopnea and LE swelling/edema. GI: Denies dysphagia and odynophagia. Denies reflux, n/v, change in bowel habits and abdominal pain. : Denies dysuria or gross hematuria. No symptoms of bladder outlet obstruction. Endo: Denies hot flashes. Denies polyuria and polydipsia. Denies heat and cold intolerance. Musculoskeletal: Sciatica--see previous ROS. Derm: See above. Heme: Denies unusual bleeding and unexplained bruising. Psych: Normal mood. Social: Quit smoking ~50 years ago. Rare alcohol. Two children. Daughter in [place] and son in [facility]. Family: Mother--?stomach cancer. Sister-- age 12 from acute leukemia. PHYSICAL EXAM: Vitals: Blood pressure 172/92, pulse 70, temperature 36.4 C (97.5 F), temperature source Temporal, height 177 cm (5' 9.69), weight 74.8 kg (165 lb), SpO2 98%. Well-appearing and in no acute distress. EYES: Sclerae are anicteric bilaterally. LYMPHATIC: There is no palpable cervical or supraclavicular or axillary adenopathy. CARDIOVASCULAR: Rhythm is regular. ABDOMEN: The abdomen is nondistended. Extremities: No swelling or edema. SKIN: No jaundice. LABS: NGS/biomarkers/pile driver engineer mutation analyses: -EGFR mutation and ALK translocation negative. -PD-L1 negative. ASSESSMENT/PLAN: (C34.90) Malignant neoplasm of unspecified part of unspecified bronchus or lung (HCC) (primary encounter diagnosis) Assessment: -The patient is a 80 year-old female with a history of light smoking who quit 50+ years ago. Underwent evaluation for a dry, persistent cough and was found to have a mass in the right upper lobe which on biopsy proved to be adenocarcinoma. -cT3 cN0 M0 clinical stage IIB non-small cell lung cancer, adenocarcinoma of the right upper lobe. -Received neoadjuvant chemo/immunotherapy. -ypT1a pN0 -Adjuvant therapy was not indicated. -Reviewed CT images with her. DEWAYNE. Small nodules in right lung may have been from aspiration. Plan: -CBC/CMP/TSH/T4/Cortisol CT chest then about 6 months. Portions of this documentation were copied and pasted from my previous office visit note dated 05/06/2024 in order to provide a cohesive continuity of the history. The note has been reviewed and edited and updated as necessary. I spent a total of 20 minutes on the date of the service which included preparing to see the patient, [id number] patient care, completing clinical documentation, obtaining and/or reviewing separately obtained history, performing a medically appropriate examination, counseling and educating the patient/family/caregiver, communicating with other HCPs (not separately reported), and communicating results to the patient/family/caregiver. Rohan Alvarez DO documented in this encounter [facility] 07-03-2025 Note HNO ID: [id number] Author: ROHAN ALVAREZ DO Service: ? Author Type: Physician Type: Progress Notes Filed: 07/03/2025 11:32 Note Text: Oncologic problem(s): 1) cT3 cN0 M0 clinical stage IIB non-small cell lung cancer, adenocarcinoma of the right upper lobe. HPI: The patient is a 80-year-old female who has a past medical history significant for type 2 diabetes (metformin), hypertension and hyperlipidemia. She underwent evaluation for a cough which had been persistent for about 3 months. She had no complaints of dyspnea fever or wheezing. A CT of the chest was performed on 01/24/2022. There was a 3.5 x 3.8 x 4.3 cm mass in the right upper lobe. This abutted the right hilar region. There was no demonstrated pleural abnormality. Mediastinum and hilar regions appeared normal otherwise. There were multilevel degenerative changes of thoracic spine with a 1.4 cm area of sclerosis observed in the posterior aspect of the T9 or T12 vertebrae at the level of the pedicle on the right side for which correlation with bone scan was recommended. There was a 1 cm cyst in the medial inferior aspect of the right lobe of the liver. Patient underwent a CT-guided right lung biopsy on 02/06/2022. Pathology: -Non-small cell carcinoma, favor adenocarcinoma consistent with lung primary. Specimen was positive for TTF-1, CK7, CK 8 in rare cells that showed positivity for CK20. Complicated by pneumothorax that required chest tube. She underwent MRI of the brain which demonstrated no evidence of metastatic disease. PET scan with results noted. She also had an MRI of the thoracic spine. Images have been loaded. She underwent CT-guided biopsy of the suspicious lesion in T10 vertebral body on 03/09/2022. Pathology demonstrated fragments of sclerotic bone with bone marrow fibrosis and edema and no evidence of carcinoma. She underwent surgical evaluation at [facility]. Previous therapy: 1) Neoadjuvant carboplatin, pemetrexed and nivolumab. Underwent right VATS, right middle lobectomy, right lower lung wedge resection, mediastinal lymphadenectomy and intercostal nerve block on 06/26/2022. Pathology: A. Lymph node #7, excision: - Three (3) lymph nodes negative for neoplasm. B. Lymph node #10R, excision: - One (1) lymph node negative for neoplasm. C. Lymph node #10R, excision: - One (1) lymph node negative for neoplasm. D. Lymph node #11R, excision: - One (1) lymph node negative for neoplasm. E. Lymph node #11R, excision: - One (1) lymph node negative for neoplasm. F. Lymph node #11R, excision: - One (1) lymph node negative for neoplasm. G. Right lung, middle lobe, lobectomy: - Invasive adenocarcinoma, acinar predominant, 0.5 cm - Non-necrotizing granulomas. H. Right lung, lower lobe, wedge excision: - Patchy subpleural fibrosis with non-necrotizing granulomas, dystrophic calcium and reactive epithelial atypia. - Negative for neoplasm. I. Lymph node #4R, excision: - Three (3) lymph nodes negative for neoplasm. J. Lymph node #2R, excision: - Three (3) lymph nodes negative for neoplasm Presents for ongoing oncologic management. Interim history: Had stroke 05/28. Frontal BARAHONA and vertigo. Recalls vomiting on two occasions. [place] like she may have aspirated. On ASA and Plavix. No residual neurologic symptoms. Discharged 06/01. Started using BiPAP about 6-8 weeks ago. No frequent cough. Feels like she's getting better sleep. No significant dyspnea. Home blood pressures--SBP ~129 mmHg. Previous microablation for right sided sciatica. PMH, medications and allergies personally reviewed by me today. Any changes documented in appropriate section. ROS: Constitutional: Denies episodes of fever and night sweats. Not significantly fatigued. Neuro: Denies BARAHONA, vertigo, dizziness and imbalance. Denies symptoms of neuropathy. HEENT: No recent change in voice, vision or hearing. Resp: See above. CVS: Denies PND, orthopnea and LE swelling/edema. GI: Denies dysphagia and odynophagia. Denies reflux, n/v, change in bowel habits and abdominal pain. : Denies dysuria or gross hematuria. No symptoms of bladder outlet obstruction. Endo: Denies hot flashes. Denies polyuria and polydipsia. Denies heat and cold intolerance. Musculoskeletal: Sciatica--see previous ROS. Derm: See above. Heme: Denies unusual bleeding and unexplained bruising. Psych: Normal mood. Social: Quit smoking ~50 years ago. Rare alcohol. Two children. Daughter in [place] and son in [facility]. Family: Mother--?stomach cancer. Sister-- age 12 from acute leukemia. PHYSICAL EXAM: Vitals: Blood pressure 172/92, pulse 70, temperature 36.4 ?C (97.5 ?F), temperature source Temporal, height 177 cm (5' 9.69), weight 74.8 kg (165 lb), SpO2 98%. Well-appearing and in no acute distress. EYES: Sclerae are anicteric bilaterally. LYMPHATIC: There is no palpable cervical or supraclavicular or axillary (more content not included)... [facility] 06-25-2025 Instructions Axel Vizcaino CNP - 06/25/2025 3:22 PM EDT Discontinue aspirin 81 mg daily Continue Plavix (clopidogrel) 75 mg once a day Continue rosuvastatin 5 mg once a day. Rosuvastatin and Plavix are part of your stroke prevention medication. Continue to monitor blood pressure closely with goal less than 130/80. Keep log of readings to take with you to follow-up appointments. Keep mentally and physically active. Monitor for change in memory/mood. Return to the ER with any recurrent stroke signs or symptoms. Follow-up in 6 months. The following attachments cannot be sent through Care Everywhere.Stroke (Australian)Stroke: Risk Factors: General Info ([place])Stroke: Symptoms: General Info ([place])documented in this encounter [facility] 06-25-2025 Note Patient ID: Lidia Ortiz is a 80 y.o. female. Assessment/Plan: Problem List Diagnosed Stroke (cerebrum) ([facility]) - Primary Discontinue aspirin 81 mg daily. Continue Plavix 75 mg daily and rosuvastatin 5 mg daily. Blood pressure elevated today. Encouraged to continue to monitor closely at home. Encouraged to keep log of readings for review at follow-up appointments. Lipid panel 05/28/2025: Cholesterol 164, Triglycerides 64, HDL 65, and LDL 86. Hemoglobin A1c 05/28/2025: 7.3% Encouraged to keep mentally and physically active. Monitor for change in memory mood. Stroke signs/symptoms discussed along with lifestyle changes with stroke education placed in AVS for review. Follow-up in 6 months. Follow-up in 6 months or sooner as needed. Time statement: A total of 30 minutes were spent on this encounter, which includes the time reviewing the patient's diagnostic tests, seeing the patient, speaking with nursing staff, and documenting in the record. Axel Vizcaino, MSN, [employer] [facility] Neurology Subjective HPI Lidia Ortiz is a 80 year old female here for post hospital follow-up for TIA. She reports she has been doing very well since her last follow-up. She notice some occasional balance issues but denies any recurrent stroke symptoms. She is still taking aspirin and Plavix. She did not tolerate rosuvastatin 10 mg so this was decreased to 5 mg. Pravastatin tried previously caused myalgia. She was doing every other day but is now doing every day and tolerating well. She presented to the ER on 05/28/2025 due to sudden onset of sharp pain on the left frontal area accompanied by vertigo sensation and brief loss of consciousness. She woke up on the floor and reported feeling nauseated with vertigo, especially when she would talk. Symptoms lasted around [address] negative for bleeding. TNK was given and she was asymptomatic the following day. She was on aspirin at the time of the event. Brain MRI was negative for stroke. Incidental PFO was found. Blood pressure is elevated today. She monitors blood pressure at home and states her systolic readings average around 120 with diastolic averaging around 60-80. Her highest systolic at home was 171. She denies any concerns with anxiety or depression. No further issues or concerns reported at this time. Review of patients current medication list along with allergies, past medical history, surgical history, family history, and social history was reviewed and updated as appropriate. Review of Systems Constitutional: Negative for activity change, appetite change, chills, fatigue, fever and unexpected weight change. HENT: Negative for trouble swallowing. Eyes: Negative for visual disturbance. Respiratory: Negative for cough, shortness of breath and wheezing. Cardiovascular: Negative for chest pain and palpitations. Gastrointestinal: Negative for abdominal pain, nausea and vomiting. Endocrine: Negative for polydipsia, polyphagia and polyuria. Genitourinary: Negative for difficulty urinating. Musculoskeletal: Positive for gait problem (some slight imbalance). Negative for arthralgias, back pain and neck pain. Skin: Negative for rash. Neurological: Negative for dizziness, tremors, seizures, syncope, weakness, light-headedness and headaches. Psychiatric/Behavioral: Negative for confusion, decreased concentration, dysphoric mood and sleep disturbance. The patient is not nervous/anxious. Objective BP (!) 169/87 (BP Location: Left arm, Patient Position: Sitting, BP Cuff Size: Adult) Pulse 72 Resp 16 Ht 5' 10 SpO2 98% BMI 22.87 kg/m Neurological Exam Mental Status Awake, alert and oriented to person, place and time. Oriented to person, place, time and situation. Oriented to person, place, and time. Speech is normal. Cranial Nerves CN II: Visual acuity is normal. Visual pelayo full to confrontation. CN III, IV, : Extraocular movements intact bilaterally. Normal lids and orbits bilaterally. Pupils equal round and reactive to light bilaterally. CN V: Facial sensation is normal. CN VII: Full and symmetric facial movement. CN VIII: Hearing is normal. CN IX, X: Palate elevates symmetrically. Normal gag reflex. CN XI: Shoulder shrug strength is normal. CN XII: Tongue midline without atrophy or fasciculations. Motor Normal muscle bulk throughout. Strength is 5/5 throughout all four extremities. Sensory Sensation is intact to light touch, pinprick, vibration and proprioception in all four extremities. Reflexes Deep tendon reflexes are 2+ and symmetric in all four extremities. Right Left Biceps 2+ 2+ Triceps 2+ 2+ Patellar 2+ 2+ Coordination [id number], rapid alternating movements and [id number] normal bilaterally without dysmetria. Gait Normal casual, toe, heel and tandem gait. Normal gait. Ambulates without assistive device.. Physical Exam Vitals and nursing note (more content not included)... [facility] 06-25-2025 History of Present illness Narrative Patient ID: Lidia Ortiz is a 80 y.o. female. Assessment/Plan: Problem List Diagnosed Stroke (cerebrum) ([facility]) - Primary Discontinue aspirin 81 mg daily. Continue Plavix 75 mg daily and rosuvastatin 5 mg daily. Blood pressure elevated today. Encouraged to continue to monitor closely at home. Encouraged to keep log of readings for review at follow-up appointments. Lipid panel 05/28/2025: Cholesterol 164, Triglycerides 64, HDL 65, and LDL 86. Hemoglobin A1c 05/28/2025: 7.3% Encouraged to keep mentally and physically active. Monitor for change in memory mood. Stroke signs/symptoms discussed along with lifestyle changes with stroke education placed in AVS for review. Follow-up in 6 months. Follow-up in 6 months or sooner as needed. Time statement: A total of 30 minutes were spent on this encounter, which includes the time reviewing the patient's diagnostic tests, seeing the patient, speaking with nursing staff, and documenting in the record. Axel Vizcaino, MARYBETH, [employer]PER[employer]OR [facility] Neurology Subjective HPI Lidia Ortiz is a 80 year old female here for post hospital follow-up for TIA. She reports she has been doing very well since her last follow-up. She notice some occasional balance issues but denies any recurrent stroke symptoms. She is still taking aspirin and Plavix. She did not tolerate rosuvastatin 10 mg so this was decreased to 5 mg. Pravastatin tried previously caused myalgia. She was doing every other day but is now doing every day and tolerating well. She presented to the ER on 05/28/2025 due to sudden onset of sharp pain on the left frontal area accompanied by vertigo sensation and brief loss of consciousness. She woke up on the floor and reported feeling nauseated with vertigo, especially when she would talk. Symptoms lasted around [address] negative for bleeding. TNK was given and she was asymptomatic the following day. She was on aspirin at the time of the event. Brain MRI was negative for stroke. Incidental PFO was found. Blood pressure is elevated today. She monitors blood pressure at home and states her systolic readings average around 120 with diastolic averaging around 60-80. Her highest systolic at home was 171. She denies any concerns with anxiety or depression. No further issues or concerns reported at this time. Review of patients current medication list along with allergies, past medical history, surgical history, family history, and social history was reviewed and updated as appropriate. Review of Systems Constitutional: Negative for activity change, appetite change, chills, fatigue, fever and unexpected weight change. HENT: Negative for trouble swallowing. Eyes: Negative for visual disturbance. Respiratory: Negative for cough, shortness of breath and wheezing. Cardiovascular: Negative for chest pain and palpitations. Gastrointestinal: Negative for abdominal pain, nausea and vomiting. Endocrine: Negative for polydipsia, polyphagia and polyuria. Genitourinary: Negative for difficulty urinating. Musculoskeletal: Positive for gait problem (some slight imbalance). Negative for arthralgias, back pain and neck pain. Skin: Negative for rash. Neurological: Negative for dizziness, tremors, seizures, syncope, weakness, light-headedness and headaches. Psychiatric/Behavioral: Negative for confusion, decreased concentration, dysphoric mood and sleep disturbance. The patient is not nervous/anxious. Objective BP (!) 169/87 (BP Location: Left arm, Patient Position: Sitting, BP Cuff Size: Adult) Pulse 72 Resp 16 Ht 5' 10 SpO2 98% BMI 22.87 kg/m Neurological Exam Mental Status Awake, alert and oriented to person, place and time. Oriented to person, place, time and situation. Oriented to person, place, and time. Speech is normal. Cranial Nerves CN II: Visual acuity is normal. Visual pelayo full to confrontation. CN III, IV, : Extraocular movements intact bilaterally. Normal lids and orbits bilaterally. Pupils equal round and reactive to light bilaterally. CN V: Facial sensation is normal. CN VII: Full and symmetric facial movement. CN VIII: Hearing is normal. CN IX, X: Palate elevates symmetrically. Normal gag reflex. CN XI: Shoulder shrug strength is normal. CN XII: Tongue midline without atrophy or fasciculations. Motor Normal muscle bulk throughout. Strength is 5/5 throughout all four extremities. Sensory Sensation is intact to light touch, pinprick, vibration and proprioception in all four extremities. Reflexes Deep tendon reflexes are 2+ and symmetric in all four extremities. Right Left Biceps 2+ 2+ Triceps 2+ 2+ Patellar 2+ 2+ Coordination [id number], rapid alternating movements and figb-pj-erio normal bilaterally without dysmetria. Gait Normal casual, toe, heel and tandem gait. Normal gait. Ambulates without assistive device.. Physical Exam Vitals and nursing note reviewed. Constitutional: Appearance: She is well-developed. Comments: Patient is very pleasant and cooperative for exam. She is well groomed and dressed appropriate for season. HENT: Head: Normocephalic and atraumatic. Eyes: General: Lids are normal. Extraocular Movements: Extraocular movements intact. Pupils: Pupils are equal, round, and reactive to light. Cardiovascular: Rate and Rhythm: Normal rate and regular rhythm. Heart sounds: No murmur heard. Pulmonary: Effort: Pulmonary effort is normal. No respiratory distress. Breath sounds: Normal breath sounds. No wheezing. Abdominal: General: Bowel sounds are normal. There is no distension. Palpations: Abdomen is soft. Musculoskeletal: General: Normal range of motion. Cervical back: Normal range of motion and neck supple. Skin: General: Skin is warm and dry. Findings: No rash. Neurological: Mental Status: She is oriented to person, place, and time. Motor: Motor strength is normal. Coordination: Coordination is intact. Gait: Gait is intact. Deep Tendon Reflexes: Reflexes are normal and symmetric. Reflex Scores: Tricep reflexes are 2+ on the right side and 2+ on the left side. Bicep reflexes are 2+ on the right side and 2+ on the left side. Patellar reflexes are 2+ on the right side and 2+ on the left side. Psychiatric: Speech: Speech normal. Behavior: Behavior normal. Thought Content: Thought content normal. Judgment: Judgment normal. documented in this encounter [facility] 06-23-2025 Note HNO ID: [id number] Author: KORIN EVERETT RT(R) Service: ? Author Type: Oral And Maxillofacial Surgery Type: Progress Notes Filed: 06/23/2025 15:49 Note Text: Radiology Service Progress Note DATE OF SERVICE: June 23, 2025 TIME: 3:48 PM PATIENT IDENTITY VERIFICATION COMPLETED USING TWO (2) STANDARD IDENTIFIERS: Name and Date of confirmed by patient verbally. FALL SCREENING: Has the patient had 2 falls in the last year or 1 fall with injury or currently using an Ambulatory Assistive Device (Walker, Cane, Wheelchair, Crutches, etc.)? No PATIENT GENDER DATA: Assigned female at . status: : No status: NO. PATIENT RELEVANT IMPLANT DATA REVIEWED: Yes PATIENT PRESENTS WITH AN IMPLANTABLE OR ATTACHED PREFORMS LAMINATOR: No ALLERGIES: Reviewed and unchanged CONTRAST ALLERGY: NO. EXAM: CT -CONTRAST INDUCED NEPHROPATHY RISK FACTORS: Patient age > 60 years CREATININE: Creatinine Date Value Ref Range Status 06/23/2025 0.68 0.58 - 0.96 mg/dL Final 11/04/2024 0.59 0.58 - 0.96 mg/dL Final 07/29/2024 0.70 0.58 - 0.96 mg/dL Final Estimated Glomerular Filtration Rate Date Value Ref Range Status 06/23/2025 89 >=60 mL/min/1.73m? Final Comment: Estimated Glomerular Filtration Rate (eGFR) is calculated using the 2020 CKD-EPI creatinine equation. This equation utilizes serum creatinine, sex, and age as parameters. The creatinine assay has traceable calibration to isotope dilution-mass spectrometry. Refer to KDIGO guidelines for clinical interpretation. In patients with unstable renal function, e.g. those with acute kidney injury, the eGFR may not accurately reflect actual GFR. eGFR- Date Value Ref Range Status 11/06/2016 >60 Final P.O.C.T. RESULTS: POC done: Yes, See Lab Tab June 23, 2025 TREATMENT: N/A PERIPHERAL IV DATA: Ambulatory: A peripheral IV was started in the Left antecubital site with a Angio cath: 22 gauge. RADIOLOGY DEPARTMENT: CT; Exam(s) Completed: Chest SIGNATURE: RT Naida(R) PATIENT NAME: Lidia Ortiz DATE: June 23, 2025 TIME: 3:48 PM [facility] 05-31-2025 Plan of care note Problem: Actual or potential alteration in health Goal: Absence of healthcare acquired conditions 05/31/2025 1150 by Mary Gray RN Outcome: Completed 05/31/2025 1028 by Mary Gray, RN Outcome: Met Goal: Knowledge of Interdisciplinary Plan of Care 05/31/2025 1150 by Mary Gray, RN Outcome: Completed 05/31/2025 1028 by Mary Gray RN Outcome: Met Goal: Knowledge of Enviroment 05/31/2025 1150 by Mary Gray RN Outcome: Completed 05/31/2025 1028 by Mary Gray RN Outcome: Met Problem: Pressure Injury, Risk of Goal: Absence of pressure injury 05/31/2025 1150 by Mary Gray RN Outcome: Completed 05/31/2025 1028 by Mary Gray RN Outcome: Met Problem: Pain Goal: Reduced pain sensation 05/31/2025 1150 by Mary Gray RN Outcome: Completed 05/31/2025 1028 by Mary Gray RN Outcome: Met Goal: Control of acute pain to acceptable level 05/31/2025 1150 by Mary Gray RN Outcome: Completed 05/31/2025 1028 by Mary Gray RN Outcome: Met Goal: Able to cope with pain 05/31/2025 1150 by Mary Gray RN Outcome: Completed 05/31/2025 1028 by Mary Gray RN Outcome: Met Goal: Able to achieve maximum level of physical functioning 05/31/2025 1150 by Mary Gray RN Outcome: Completed 05/31/2025 1028 by Mary Gray RN Outcome: Met Goal: Able to achieve maximum level of psychosocial functioning 05/31/2025 1150 by Mary Gray RN Outcome: Completed 05/31/2025 1028 by Mary Gray RN Outcome: Met Problem: Transition Readiness Goal: Able to safely transition to next level of care 05/31/2025 1150 by Mary Gray RN Outcome: Completed 05/31/2025 1028 by Mary Gray RN Outcome: Met Goal: Knowledge of care transition plan 05/31/2025 1150 by Mary Gray RN Outcome: Completed 05/31/2025 1028 by Mary Gray RN Outcome: Met Goal: Participation in care planning 05/31/2025 1150 by Mary Gray RN Outcome: Completed 05/31/2025 1028 by Mary Gray RN Outcome: Met [facility] 05-31-2025 Miscellaneous Notes Problem: Actual or potential alteration in health Goal: Absence of healthcare acquired conditions 05/31/2025 1150 by Mary rGay RN Outcome: Completed 05/31/2025 1028 by Mary Gray RN Outcome: Met Goal: Knowledge of Interdisciplinary Plan of Care 05/31/2025 1150 by Mary Gray RN Outcome: Completed 05/31/2025 1028 by Mary Gray RN Outcome: Met Goal: Knowledge of Enviroment 05/31/2025 1150 by Mary Gray RN Outcome: Completed 05/31/2025 1028 by Mary Gray RN Outcome: Met Problem: Pressure Injury, Risk of Goal: Absence of pressure injury 05/31/2025 1150 by Mary Gray RN Outcome: Completed 05/31/2025 1028 by Mary Gray RN Outcome: Met Problem: Pain Goal: Reduced pain sensation 05/31/2025 1150 by aMry Gray RN Outcome: Completed 05/31/2025 1028 by Mary Gray RN Outcome: Met Goal: Control of acute pain to acceptable level 05/31/2025 1150 by Mary Gray RN Outcome: Completed 05/31/2025 1028 by Mary Gray RN Outcome: Met Goal: Able to cope with pain 05/31/2025 1150 by Mary Gray RN Outcome: Completed 05/31/2025 1028 by Mary Gray RN Outcome: Met Goal: Able to achieve maximum level of physical functioning 05/31/2025 1150 by Mary Gray RN Outcome: Completed 05/31/2025 1028 by Mary Gray RN Outcome: Met Goal: Able to achieve maximum level of psychosocial functioning 05/31/2025 1150 by Mary Gray RN Outcome: Completed 05/31/2025 1028 by Mary Gray RN Outcome: Met Problem: Transition Readiness Goal: Able to safely transition to next level of care 05/31/2025 1150 by Mary Gray RN Outcome: Completed 05/31/2025 1028 by Mary Gray RN Outcome: Met Goal: Knowledge of care transition plan 05/31/2025 1150 by Mary Gray RN Outcome: Completed 05/31/2025 1028 by Mary Gray RN Outcome: Met Goal: Participation in care planning 05/31/2025 1150 by Mary Gray RN Outcome: Completed 05/31/2025 1028 by Mary Gray RN Outcome: Met Problem: Actual or potential alteration in health Goal: Absence of healthcare acquired conditions Outcome: Met Goal: Knowledge of Interdisciplinary Plan of Care Outcome: Met Goal: Knowledge of Enviroment Outcome: Met Problem: Pressure Injury, Risk of Goal: Absence of pressure injury Outcome: Met Problem: Pain Goal: Reduced pain sensation Outcome: Met Goal: Control of acute pain to acceptable level Outcome: Met Goal: Able to cope with pain Outcome: Met Goal: Able to achieve maximum level of physical functioning Outcome: Met Goal: Able to achieve maximum level of psychosocial functioning Outcome: Met Problem: Transition Readiness Goal: Able to safely transition to next level of care Outcome: Met Goal: Knowledge of care transition plan Outcome: Met Goal: Participation in care planning Outcome: Met Problem: Actual or potential alteration in health Goal: Absence of healthcare acquired conditions 05/30/2025 1120 by Shannon Lea RN Outcome: Partially Met 05/30/2025 1120 by Shannon Lea RN Outcome: Partially Met Goal: Knowledge of Interdisciplinary Plan of Care 05/30/2025 1120 by Shannon Lea RN Outcome: Partially Met 05/30/2025 1120 by Shannon Lea RN Outcome: Partially Met Goal: Knowledge of Enviroment Outcome: Partially Met Problem: Pressure Injury, Risk of Goal: Absence of pressure injury Outcome: Partially Met Problem: Pain Goal: Reduced pain sensation Outcome: Partially Met Goal: Control of acute pain to acceptable level Outcome: Partially Met Goal: Able to cope with pain Outcome: Partially Met Goal: Able to achieve maximum level of physical functioning Outcome: Partially Met Goal: Able to achieve maximum level of psychosocial functioning Outcome: Partially Met Problem: Transition Readiness Goal: Able to safely transition to next level of care Outcome: Partially Met Goal: Knowledge of care transition plan Outcome: Partially Met Goal: Participation in care planning Outcome: Partially Met Problem: Actual or potential alteration in health Goal: Absence of healthcare acquired conditions Outcome: Partially Met Goal: Knowledge of Interdisciplinary Plan of Care Outcome: Partially Met Goal: Knowledge of Enviroment Outcome: Partially Met Problem: Pressure Injury, Risk of Goal: Absence of pressure injury Outcome: Partially Met Problem: Pain Goal: Reduced pain sensation Outcome: Partially Met Goal: Control of acute pain to acceptable level Outcome: Partially Met Goal: Able to cope with pain Outcome: Partially Met Goal: Able to achieve maximum level of physical functioning Outcome: Partially Met Goal: Able to achieve maximum level of psychosocial functioning Outcome: Partially Met Physical Therapy Plan of Care Certification Note Medicare billing rules require the provider to review and certify the physical therapy plan of care for patients in observation or outpatient status. This co-signature is to electronically certify that the above-named patient, who is under my care, requires skilled therapy services as described in the treatment plan below. I further certify that the services outlined in this plan are skilled and medically necessary. I have reviewed this plan of care for rehabilitation services and recommend that these services continue until the patient is discharged from this hospitalization or the patient is discharged from physical therapy services. Coded Admission Diagnosis Dizziness [R42] Photophobia [H53.149] Headache [R51.9] Acute CVA (cerebrovascular accident) (HCC) [I63.9] Syncope, unspecified syncope type [R55] Cerebrovascular accident (CVA), unspecified mechanism (HCC) [I63.9] PT Functional Diagnosis: R26.2 Difficulty in walking, not elsewhere classified PT Goals Encounter Problems (Active) Problem: Mobility - Impaired Dates: Start: 05/29/25 Disciplines: PT Goal: PT- ambulation Dates: Start: 05/29/25 Description: PT - Patient will ambulate 150 feet without device with stand by assist to improve functional mobility and safety. Disciplines: PT Intervention: Education, Gait training Frequency: PRN Dates: Start: 05/29/25 Frequency of Treatment: (DC PT) This physical Therapy Plan of Care will be carried out until: 1.) The PT plan has been resolved or 2.) The patient is discharged from the acute care hospital Cosigned by Js Navas DO at 05/29/2025 4:07 PM EDT Problem: Actual or potential alteration in health Goal: Absence of healthcare acquired conditions Outcome: Partially Met Goal: Knowledge of Interdisciplinary Plan of Care Outcome: Partially Met Goal: Knowledge of Enviroment Outcome: Partially Met Problem: Pressure Injury, Risk of Goal: Absence of pressure injury Outcome: Partially Met Stroke [facility] Virtual Neurology Assessement Note History of Present Illness: I was asked to preform a stroke alert by [facility]. This provider had difficulty obtaining a clear timeline of events due to patient's somnolence. Eventually was able to get a hold of patient's via her son. 80-year-old female with a past medical history of former tobacco abuse, non-small cell lung cancer of the right lung status post lobectomy approximately 3 to 4 years ago without recurrence, hyperlipidemia, hypertension, type 2 diabetes on daily aspirin who was last seen normal at 12:15 PM after she completed a phone call to her family member. She was in the kitchen preparing a meal when she developed a sudden onset of frontal headache quickly followed by resolution of the headache. She then experienced sudden onset of room spinning vertigo associated nausea that progressively got worse. She then ambulated to her and described her current symptoms. She then walked to the kitchen unaccompanied, the followed her. She was able to ambulate with shaky legs. She then had a slow collapse of her legs for which her caught her. Following this the patient did not lose consciousness but was not awake either. At times she would answer questions or correctly while other times she would mumble. Eyes remain closed due to severe dizziness. There is no overt unilateral weakness that the saw. No seizure activity. She did not strike her head. EMS was called. EMS felt that there was a facial droop and left arm weakness. She was then brought to the ED. ED attending felt that there was also left-sided weakness prompting a stroke alert. After returning from CT scanner patient had multiple periods where she would repeatedly fall asleep. She kept her eyes closed due to severe dizziness. When she would open her eyes there was no disconjugate gaze and no obvious nystagmus seen virtually. There is no obvious facial droop or slurred speech. No aphasia. Patient does describe having difficulty talking but she cannot elaborate on this. She feels globally weak. Objective testing shows no unilateral facial droop, unilateral arm drift. There is bilateral symmetric leg drift. Intact sensation. Fingerstick glucose 148. Blood pressure was 131/65 mmHg. Patient states that with her vertigo and symptoms now she would not be able to ambulate or do her normal activities. In order to obtain this timeline (for the patient was unclear about certain details) I spoke to the patient's son, daughter, and eventually on the phone. EXAM: Temp: [97.7 F (36.5 C)] 97.7 F (36.5 C) Heart Rate: [51-57] 52 Resp: [14] 14 BP: (131-149)/(65-135) 145/70 NIH Stroke Scale Interval: Baseline Time: 2:45 PM Person Administering Scale: Dexter Gunter MD NIH Stroke Scale Level of Consciousness (1a.): Not alert, requires repeated stimulation to attend, or is obtunded and requires strong or painful stimulation to make movements (not stereotyped) (Keeps falling asleep during evaluation.) LOC Questions (1b.): Answers both questions correctly LOC Commands (1c.): Performs both tasks correctly Best Gaze (2.): Normal Visual (3.): No visual loss Facial Palsy (4.): Normal symmetrical movements Motor Arm, Left (5a.): No drift Motor Arm, Right (5b.): No drift Motor Leg, Left (6a.): Some effort against gravity Motor Leg, Right (6b.): Some effort against gravity Limb Ataxia (7.): Absent Sensory (8.): Normal, no sensory loss Best Language (9.): No aphasia Dysarthria (10.): Normal Extinction and Inattention (11.) (Formerly Neglect): No abnormality Total: 6 Other examination findings: Imaging Findings (Reviewed by me preliminarily, official read pending): CT head (05/28/2025): No acute intracranial abnormalities; ASPECTS 10 Impression: Etiology is unclear. Acute onset of room spinning vertigo followed by reported left-sided weakness and trouble speaking raises significant concerns for posterior circulation infarction. Stroke mimic is also possible including atypical vestibular disorder resulting in global weakness, headache variant, metabolic disorder, or other. There are no contraindications for thrombolysis. After review of the patient's history, imaging, labs, the patient was deemed an excellent IV thrombolysis candidate. The risks/benefits of the medication were reviewed, including the 4-6% risks of symptomatic ICH. The patient and family ( and son) wished to proceed with thrombolysis. I personally placed the order. Plan: ED: STAT TNK CTA head/neck in ED following TNK Permissive HTN (don't treat BP unless > 180/100 mmHg). No antiplatelet Metabolic/infectious evaluation as per ED. Hospital: Disposition: ICU admission for post tPA cares Neurology consult MR brain w/ and w/o contrast at 24 hours Hold on all antiplatelet, subcu heparin, or anticoagulants until neurology Differ need for echo to inpatient team Permissive HTN (don't treat BP unless > 180/100 mmHg) LDL, A1c PT/OT/ST-given her vertigo, difficulty walking/collapse patient will remain on strict bedrest. Dexter Gunter MD Cerebrovascular Neurology [facility] Neurological Physicians documented in this encounter [facility] 05-31-2025 Plan of care note Problem: Actual or potential alteration in health Goal: Absence of healthcare acquired conditions Outcome: Met Goal: Knowledge of Interdisciplinary Plan of Care Outcome: Met Goal: Knowledge of Enviroment Outcome: Met Problem: Pressure Injury, Risk of Goal: Absence of pressure injury Outcome: Met Problem: Pain Goal: Reduced pain sensation Outcome: Met Goal: Control of acute pain to acceptable level Outcome: Met Goal: Able to cope with pain Outcome: Met Goal: Able to achieve maximum level of physical functioning Outcome: Met Goal: Able to achieve maximum level of psychosocial functioning Outcome: Met Problem: Transition Readiness Goal: Able to safely transition to next level of care Outcome: Met Goal: Knowledge of care transition plan Outcome: Met Goal: Participation in care planning Outcome: Met [facility] 05-31-2025 Note HMS DISCHARGE SUMMAR Y -- [facility] Lidia Ortiz : 1945 Admitted: 05/28/2025 Discharge Date: 05/31/25 PCP Handoff Recommended Outpatient Testing NOne Results Pending At Discharge none Clinical Summary Lidia Ortiz is a 80 y.o. female patient of Ferdinand Montague DO with history of former tobacco use disorder, non-small cell lung cancer of the right lung s/p lobectomy 3 years ago, dyslipidemia, hypertension, type 2 diabetes mellitus presented to [facility] on 05/28/2025 with dizziness and headache with LOC. Stroke code level 1 was called in the ED.. 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 Was monitored in ICU for 24 hours with blood pressure goal of systolic less than 180. Antiplatelets held for first 24 hours. Now started on aspirin and Plavix for 21 days and then continue Plavix indefinitely per neurology. Low-sodium diet and appropriate management of hypertension. Seen by PT OT MAGNETIC RESONANCE TECHNOLOGIST. No need for therapies at discharge. Intracranial vascular stenosis Continue statin and antiplatelets. Hypertension Dyslipidemia Losartan and metoprolol held on admission. Required nicardipine briefly. Overall patient did have elevated blood pressure during her stay although she and RN reported that her blood pressures at home. I gave her 24 hours to see if blood pressure will improve on her home medications but still remained with systolic 170s and 180s. I made following changes. Change metoprolol to Coreg at discharge Continue losartan. Added low-dose Imdur. Advised her to keep a log of blood pressure for next 2 weeks. Follow-up with PCP to see if any further changes as needed. Type 2 diabetes mellitus Last A1c 2 years ago 6.4 A1c Metformin XR in the morning and regular metformin in the evening. Non-small cell lung cancer S/p lobectomy 3 years ago Continue respiratory support Pain control Discharge Medications Discharge Medications New Medications Details aspirin 81 mg chewable tablet Chew and Swallow 1 (one) tablet (81 mg total) daily for 21 days . Quantity: 21 tablet carvediloL 3.125 MG tablet Commonly known as: COREG Take 1 (one) tablet (3.125 mg total) by mouth 2 (two) times a day . Quantity: 60 tablet clopidogreL 75 mg tablet Commonly known as: PLAVIX Take 1 (one) tablet (75 mg total) by mouth daily . Quantity: 30 tablet isosorbide mononitrate 30 MG 24 hr tablet Commonly known as: IMDUR Take 1 (one) tablet (30 mg total) by mouth daily . Quantity: 30 tablet rosuvastatin 10 MG tablet Commonly known as: CRESTOR Replaces: rosuvastatin 5 mg Cpsp Take 1 (one) tablet (10 mg total) by mouth nightly . Quantity: 30 tablet Medications To Continue Details losartan 100 MG tablet Commonly known as: COZAAR Take 1 (one) tablet (100 mg total) by mouth every evening . * metFORMIN 500 MG 24 hr tablet Commonly known as: GLUCOPHAGE-XR Take 1 (one) tablet (500 mg total) by mouth daily with breakfast . * metFORMIN 500 MG tablet Commonly known as: GLUCOPHAGE Take 1 (one) tablet (500 mg total) by mouth every evening . pioglitazone 15 MG tablet Commonly known as: ACTOS Take 1 (one) tablet (15 mg total) by mouth daily . * There are duplicate medications prescribed to the patient Stopped Medications metoprolol succinate 25 MG 24 hr tablet Commonly known as: TOPROL-XL rosuvastatin 5 mg Cpsp Replaced by: rosuvastatin 10 MG tablet Physician(s) Follow Up: Axel Vizcaino, [employer] [address] [place] [id number] Follow up in 3 week(s) Condition at Discharge: Stable Disposition: Home I reviewed discharge recommendations with the patient in person. Patient instructions, including activity, were given to the patient/family at discharge. On day of discharge I saw Lidia Ortiz and spent: > 30 minutes on discharge. Completed by: Raquel Solorzano MD on 05/31/25, 10:14 AM AUTHENTICATED BY RAQUEL SOLORZANO, ON 05/31/2025 10:14:23 [facility] 05-31-2025 Hospital course Narrative Images from the original note were not included. [facility] [place] -- [facility] Lidia Ortiz : 1945 Admitted: 05/28/2025 Discharge Date: 05/31/25 PCP Handoff Recommended Outpatient Testing NOne Results Pending At Discharge none Clinical Summary Lidia Ortiz is a 80 y.o. female patient of Ferdinand Montague DO with history of former tobacco use disorder, non-small cell lung cancer of the right lung s/p lobectomy 3 years ago, dyslipidemia, hypertension, type 2 diabetes mellitus presented to [facility] on 05/28/2025 with dizziness and headache with LOC. Stroke code level 1 was called in the ED.. 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 Was monitored in ICU for 24 hours with blood pressure goal of systolic less than 180. Antiplatelets held for first 24 hours. Now started on aspirin and Plavix for 21 days and then continue Plavix indefinitely per neurology. Low-sodium diet and appropriate management of hypertension. Seen by PT OT MAGNETIC RESONANCE TECHNOLOGIST. No need for therapies at discharge. Intracranial vascular stenosis Continue statin and antiplatelets. Hypertension Dyslipidemia Losartan and metoprolol held on admission. Required nicardipine briefly. Overall patient did have elevated blood pressure during her stay although she and RN reported that her blood pressures at home. I gave her 24 hours to see if blood pressure will improve on her home medications but still remained with systolic 170s and 180s. I made following changes. Change metoprolol to Coreg at discharge Continue losartan. Added low-dose Imdur. Advised her to keep a log of blood pressure for next 2 weeks. Follow-up with PCP to see if any further changes as needed. Type 2 diabetes mellitus Last A1c 2 years ago 6.4 A1c Metformin XR in the morning and regular metformin in the evening. Non-small cell lung cancer S/p lobectomy 3 years ago Continue respiratory support Pain control Discharge Medications Discharge Medications New Medications Details aspirin 81 mg chewable tablet Chew and Swallow 1 (one) tablet (81 mg total) daily for 21 days . Quantity: 21 tablet carvediloL 3.125 MG tablet Commonly known as: COREG Take 1 (one) tablet (3.125 mg total) by mouth 2 (two) times a day . Quantity: 60 tablet clopidogreL 75 mg tablet Commonly known as: PLAVIX Take 1 (one) tablet (75 mg total) by mouth daily . Quantity: 30 tablet isosorbide mononitrate 30 MG 24 hr tablet Commonly known as: IMDUR Take 1 (one) tablet (30 mg total) by mouth daily . Quantity: 30 tablet rosuvastatin 10 MG tablet Commonly known as: CRESTOR Replaces: rosuvastatin 5 mg Cpsp Take 1 (one) tablet (10 mg total) by mouth nightly . Quantity: 30 tablet Medications To Continue Details losartan 100 MG tablet Commonly known as: COZAAR Take 1 (one) tablet (100 mg total) by mouth every evening . * metFORMIN 500 MG 24 hr tablet Commonly known as: GLUCOPHAGE-XR Take 1 (one) tablet (500 mg total) by mouth daily with breakfast . * metFORMIN 500 MG tablet Commonly known as: GLUCOPHAGE Take 1 (one) tablet (500 mg total) by mouth every evening . pioglitazone 15 MG tablet Commonly known as: ACTOS Take 1 (one) tablet (15 mg total) by mouth daily . * There are duplicate medications prescribed to the patient Stopped Medications metoprolol succinate 25 MG 24 hr tablet Commonly known as: TOPROL-XL rosuvastatin 5 mg Cpsp Replaced by: rosuvastatin 10 MG tablet Physician(s) Follow Up: Axel Vizcaino, [employer] SUPER[employer]OR [address] [place] [id number] Follow up in 3 week(s) Condition at Discharge: Stable Disposition: Home I reviewed discharge recommendations with the patient in person. Patient instructions, including activity, were given to the patient/family at discharge. On day of discharge I saw Lidia Ortiz and spent: > 30 minutes on discharge. Completed by: Raquel Solorzano MD on 05/31/25, 10:14 AM documented in this encounter [facility] 05-30-2025 Plan of care note Problem: Actual or potential alteration in health Goal: Absence of healthcare acquired conditions 05/30/2025 1120 by Shannon Lea RN Outcome: Partially Met 05/30/2025 1120 by Shannon Lea RN Outcome: Partially Met Goal: Knowledge of Interdisciplinary Plan of Care 05/30/2025 1120 by Shannon Lea RN Outcome: Partially Met 05/30/2025 112 by Shannon Lea RN Outcome: Partially Met Goal: Knowledge of Enviroment Outcome: Partially Met Problem: Pressure Injury, Risk of Goal: Absence of pressure injury Outcome: Partially Met Problem: Pain Goal: Reduced pain sensation Outcome: Partially Met Goal: Control of acute pain to acceptable level Outcome: Partially Met Goal: Able to cope with pain Outcome: Partially Met Goal: Able to achieve maximum level of physical functioning Outcome: Partially Met Goal: Able to achieve maximum level of psychosocial functioning Outcome: Partially Met Problem: Transition Readiness Goal: Able to safely transition to next level of care Outcome: Partially Met Goal: Knowledge of care transition plan Outcome: Partially Met Goal: Participation in care planning Outcome: Partially Met [facility] 05-30-2025 Note HMS PROGRESS NOTE Patient Name: Lidia Ortiz : 1945 Assessment and Plan Lidia Ortiz is a 80 y.o. female patient of Ferdinand Montague DO with history of former tobacco use disorder, non-small cell lung cancer of the right lung s/p lobectomy 3 years ago, dyslipidemia, hypertension, type 2 diabetes mellitus presented to [facility] on 05/28/2025 with dizziness and headache with LOC. Stroke code level 1 was called in the ED.. 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 Aspirin and Plavix for 21 days. Thereafter Plavix indefinitely. Seen by neurology. Seen by therapies and at baseline. Hypertension Dyslipidemia Home medication losartan and metoprolol, will hold for now Using nicardipine drip for goal blood pressure 180/110. Will resume home medications today. Blood pressure remains elevated. Per patient and daughter she is normally well-controlled at home. Will not add anything new today. Will plan for discharge if blood pressure improves later today. Nausea This morning is not able to tolerate anything p.o. Will try IV Compazine. Type 2 diabetes mellitus Last A1c 2 years ago 6.4 A1c Home medication metformin BG on admission 148 Keep BG between 140 and 180 Non-small cell lung cancer S/p lobectomy 3 years ago Continue respiratory support Pain control Resolved acute medical issues Discharge Planning Patient Medically Ready for Discharge: no Patient requires continued hospitalization due to: TKS Expected Date of Discharge: 1 day Expected Discharge Location: Home Quality Measures DVT Prophylaxis: SCDs Christiansen Catheter: absent Code Status Full Code Primary Contact Information Subjective This morning feeling nauseous. Has some headache as well. Denies any focal deficits. Objective BP (!) 165/95 (BP Location: Left arm, Patient Position: Lying) Pulse 65 Temp 98.5 degrees F (36.9 degrees C) (Oral) Resp 18 Ht 5' 10 Wt 72.3 kg (159 lb 6.3 oz) SpO2 95% BMI 22.87 kg/m Physical Examination General Appearance: alert; acute on chronically ill appearing; in mild acute distress HEENT: Head- normocephalic; Eyes- EOMI, sclera anicteric; Throat- mucous membranes moist Cardiovascular: regular rate and rhythm; normal S1, S2; no murmurs, rubs, clicks or gallops; peripheral edema absent Respiratory: lungs clear to auscultation; without wheezes, rales or rhonchi; on room air Abdomen: soft, non-tender, non-distended Neurological: oriented x 3; normal speech; no focal findings or movement disorder noted Musculoskeletal: no significant deformity or tenderness to palpation Skin: normal coloration Psych: normal mood and affect AUTHENTICATED BY RAQUEL SOLORZANO, ON 05/31/2025 10:18:08 [facility] 05-30-2025 History of Present illness Narrative [facility]GRESS [place] Patient Name: Lidia Ortiz : 1945 Assessment and Plan Lidia Ortiz is a 80 y.o. female patient of Ferdinand Montague DO with history of former tobacco use disorder, non-small cell lung cancer of the right lung s/p lobectomy 3 years ago, dyslipidemia, hypertension, type 2 diabetes mellitus presented to [facility] on 05/28/2025 with dizziness and headache with LOC. Stroke code level 1 was called in the ED.. 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 Aspirin and Plavix for 21 days. Thereafter Plavix indefinitely. Seen by neurology. Seen by therapies and at baseline. Hypertension Dyslipidemia Home medication losartan and metoprolol, will hold for now Using nicardipine drip for goal blood pressure 180/110. Will resume home medications today. Blood pressure remains elevated. Per patient and daughter she is normally well-controlled at home. Will not add anything new today. Will plan for discharge if blood pressure improves later today. Nausea This morning is not able to tolerate anything p.o. Will try IV Compazine. Type 2 diabetes mellitus Last A1c 2 years ago 6.4 A1c Home medication metformin BG on admission 148 Keep BG between 140 and 180 Non-small cell lung cancer S/p lobectomy 3 years ago Continue respiratory support Pain control Resolved acute medical issues Discharge Planning Patient Medically Ready for Discharge: no Patient requires continued hospitalization due to: TKS Expected Date of Discharge: 1 day Expected Discharge Location: Home Quality Measures DVT Prophylaxis: SCDs Christiansen Catheter: absent Code Status Full Code Primary Contact Information Subjective This morning feeling nauseous. Has some headache as well. Denies any focal deficits. Objective BP (!) 165/95 (BP Location: Left arm, Patient Position: Lying) Pulse 65 Temp 98.5 F (36.9 C) (Oral) Resp 18 Ht 5' 10 Wt 72.3 kg (159 lb 6.3 oz) SpO2 95% BMI 22.87 kg/m Physical Examination General Appearance: alert; acute on chronically ill appearing; in mild acute distress HEENT: Head- normocephalic; Eyes- EOMI, sclera anicteric; Throat- mucous membranes moist Cardiovascular: regular rate and rhythm; normal S1, S2; no murmurs, rubs, clicks or gallops; peripheral edema absent Respiratory: lungs clear to auscultation; without wheezes, rales or rhonchi; on room air Abdomen: soft, non-tender, non-distended Neurological: oriented x 3; normal speech; no focal findings or movement disorder noted Musculoskeletal: no significant deformity or tenderness to palpation Skin: normal coloration Psych: normal mood and affect [facility] [place] PROGRESS NOTE Patient Name: Lidia Ortiz : 1945 Assessment and Plan Lidia Ortiz is a 80 y.o. female patient of [facility] with history of former tobacco use disorder, non-small cell lung cancer of the right lung s/p lobectomy 3 years ago, dyslipidemia, hypertension, type 2 diabetes mellitus presented to [facility] on 05/28/2025 with dizziness and headache with LOC. Stroke code level 1 was called in the ED.. 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 Blood pressure goal still remains systolic less than 180. As needed nicardipine drip. Hold aspirin until 3 PM today when 24 hours will be done. Continue Crestor. Pending PT OT per Neurology consult. Hypertension Dyslipidemia Home medication losartan and metoprolol, will hold for now Using nicardipine drip for goal blood pressure 180/110. Type 2 diabetes mellitus Last A1c 2 years ago 6.4 A1c Home medication metformin BG on admission 148 Keep BG between 140 and 180 Non-small cell lung cancer S/p lobectomy 3 years ago Continue respiratory support Pain control Resolved acute medical issues Discharge Planning Patient Medically Ready for Discharge: no Patient requires continued hospitalization due to: TKS Expected Date of Discharge: 1 day Expected Discharge Location: Home Quality Measures DVT Prophylaxis: SCDs Christiansen Catheter: absent Code Status Full Code Primary Contact Information Subjective This morning sitting up in chair reports no lightheadedness. Says that she may have passed out she is not really sure, her legs gave out in the kitchen and was caught by her dad. Denies any complaints at this time. Objective BP (!) 153/63 Pulse 90 Temp 98.6 F (37 C) (Oral) Resp 14 Wt 77.9 kg (171 lb 11.8 oz) SpO2 95% Physical Examination General Appearance: alert; acute on chronically ill appearing; in mild acute distress HEENT: Head- normocephalic; Eyes- EOMI, sclera anicteric; Throat- mucous membranes moist Cardiovascular: regular rate and rhythm; normal S1, S2; no murmurs, rubs, clicks or gallops; peripheral edema absent Respiratory: lungs clear to auscultation; without wheezes, rales or rhonchi; on room air Abdomen: soft, non-tender, non-distended Neurological: oriented x 3; normal speech; no focal findings or movement disorder noted Musculoskeletal: no significant deformity or tenderness to palpation Skin: normal coloration Psych: normal mood and affect Spiritual Care Progress Note Completed by: Fabio Marx Person(s) Present During this Visit: Patient Not Available, Son Time Spent in Direct Patient Care: 30 Narrative: Responded to Stroke Alert. Checked in with unit staff and met with Lidia's son Germán in ED lobby. Introduced self and role and provided a brief update. He shared a little bit about his mother's health and that she's relatively healthy. He has contacted the rest of the family. He shared his dad was on the way from [place]. His dad is coping with some health issues as well. He shared his sister is on her way from [facility]. Germán expressed some anxiety and concern for his mother but understood he would have to wait to see her. I followed up with RN and escorted Germán back to the room when appropriate. Pastoral care will remain available as requested. 05/28/25 1426 Visit Background Visit With Patient Not Available;Son Visit By Staff Heel Cementer Machine;Student Heel Cementer Machine Visit Progression Introduction Visit Requested By Heel Cementer Machine Initiated Visit Source Overhead Page Visit Type Crisis Visit Visit Circumstances and Events Stroke Alert Visit Length (minutes) 30 Patient's Response to Pastoral Care Other (see comment) (visit with family) Visit Planning PRN Spiritual Assessment Not assessed during visit Sikhism Assessment Not assessed during this visit Family assessment provided? Not assessed during this visit Reverend Fabio Marx MDiv Student Heel Cementer Machine [facility] Economic Development Coordinator Heel Cementer Machine /[employer] Economic Development Coordinator Heel Cementer Machine Cosigned by Lorin Blanton at 05/29/2025 7:54 AM EDT documented in this encounter [facility] 05-30-2025 Plan of care note Problem: Actual or potential alteration in health Goal: Absence of healthcare acquired conditions Outcome: Partially Met Goal: Knowledge of Interdisciplinary Plan of Care Outcome: Partially Met Goal: Knowledge of Enviroment Outcome: Partially Met Problem: Pressure Injury, Risk of Goal: Absence of pressure injury Outcome: Partially Met Problem: Pain Goal: Reduced pain sensation Outcome: Partially Met Goal: Control of acute pain to acceptable level Outcome: Partially Met Goal: Able to cope with pain Outcome: Partially Met Goal: Able to achieve maximum level of physical functioning Outcome: Partially Met Goal: Able to achieve maximum level of psychosocial functioning Outcome: Partially Met [facility] 05-29-2025 Hospital Discharge instructions Mariana Nicole MD - 05/29/2025 3:23 PM EDT Aspirin 81 mg daily for 21 days. Plavix 75 mg daily for stroke prevention. Continue Crestor 10 mg nightly and low-cholesterol diet. Low-sodium diet and continue management of hypertension with a goal blood pressure of less than 140/90. Continue management of diabetes. Low carbohydrate diet. Monitor blood sugar regularly with a goal hemoglobin A1c of less than 7. Continue BiPAP for obstructive sleep apnea. Regular exercise and institute fall precautions. Analgesic as needed. Antiemetic as needed. Monitor for any recurrent attacks of vertigo and may prescribe meclizine as needed. Monitor for any recurrent TIA or stroke symptoms. Follow-up with outpatient neurology in 2 to 3 weeks. The following attachments cannot be sent through Care Everywhere.Transient Ischemic Attack: General Info (Australian)Stroke: Risk Factors: General Info (Australian)Stroke: Primary Prevention: General Info (Australian)documented in this encounter [facility] 05-29-2025 Consult note Formatting of th is note is different from the original. Occupational Therapy OCCUPATIONAL THERAPY EVALUATION Skilled Therapy Needs After Discharge Are OT Skilled Therapy Services Needed After Discharge: No OT DME Recommendation: None Rehab Potential: (N/A; Evaluation Only.) OT Caregiver Readiness OT Rationale: Stroke Caregiver Readiness OT Training Progress: Completed OT Identified Caregiver: Sister, Son (Patient) Caregiver Present for OT Session: Yes OT Training Provided For: (Signs/Symptoms of Stroke; Importance of Early Detection.) Caregiver response to OT training: Verbalizes understanding Outcomes Measures Prior Function Daily Activity Raw Score: 24 Prior Function Daily Activity % Impaired: 0% AM-PAC Daily Activity Raw Score: 24 AM-PAC Daily Activity % Impaired: 0% Occupational Therapy Assessment The patient does not present with any current functional participation deficits. The patient's co morbidities do not affect patient performance in the above activities and roles. The patient's home setup is a footwear machinery instructor, family / caregiver support is a footwear machinery instructor for return to prior level of function. The patient's education level is a footwear machinery instructor, compliance is a footwear machinery instructor, awareness of own capacity and performance is a footwear machinery instructor to return to prior level of function. During the assessment, no modification of task was required and limited treatment options were identified in the plan of care. This consultation required expanded review of the medical and therapy history. Medical Diagnosis: Acute L-sided Weakness; Dizziness; Vertigo; r/o CVA; s/p TNK Administration. UE Function: Bilateral UE AROM to WNL and strength is grossly 4- to 5/5 in areas tested with gross grasp about 5/5; pt was able to oppose thumb to digits using bilateral hands. Activity Tolerance Activity Tolerance: (On room air; no SOB noted with activity exertion; pt denied feeling dizzy upon inquiry.) Therapy Precautions Orthotic Devices: No Weight Bearing Status: WFL General Rehab Precautions: Fall risk (Pt lowered to the floor by family MACHINE GRAINER x1.) Activity as Tolerated Cognition Arousal/Alertness: Appropriate responses to stimuli Orientation Level: Oriented to place, Oriented to time, Oriented to person (Knew birthdate.) Attention: Attends to quiet environment Hearing Status: WFL Social Interaction: [facility] ADL Grooming: Independent (Combed hair and completed oral care using mouthwash-basin at chair level.) Lower Body Dressing: Independent (Donned/doffed socks and slip-on sandals at chair level.) Functional Mobility: Independent (With short distance ambulation in room w/out AD.) Bed Mobility Not tested. Functional Transfers Sit to Stand: Independent (Independent w/stand to sit transition at chair.) Bed to Chair Transfers: Independent Power Press Operator: (None) (Independent w/dynamic sitting at chair level during LB dressing tasks; independent with static standing w/out AD or UE support against maximal manual resistance; independent with object retrieval outside standing ARMANDO w/UE without LOB observed, including object placed at floor level, without use of UE support for standing stability.) Additional Assessment Details Pt does not present with deficits that warrant follow-up OT treatment. Pt appears to be at her baseline status for functional mobility and self-care tasks. OT reviewed the importance of early detection and recognition of the signs/symptoms of stroke to promote the best functional outcome. OT also educated pt on healthy lifestyle habits to promote stroke prevention to include a healthy diet, regular exercise, medication compliance, and BP monitoring. Pt's son and sister at bedside during education. OT will sign off case at this time. Home Living Obtained Home Living and PLOF info from: Patient Lives With: Spouse (Family can assist at home upon discharge.) Type of Home: Condo Home Layout: One level Steps to enter home: No Bathroom Shower/Tub: Walk-in shower Bathroom Toilet: Raised Bathroom Equipment: Grab bars in shower, Shower chair Bathroom Accessibility: Accessible via walker Mobility Equipment: Wheeled walker, Rollator ADL Equipment: [employer] Chair Prior Level of Function Level of [place] - Transfers/Ambulation/Mobility: Independent with functional transfers, Independent with household ambulation, Independent with community ambulation (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.) Level of [place] - ADLs: Independent Level of [place] - Homemaking: (Pt and spouse shared cooking tasks; independent w/laundry tasks within condo.) Driving: Patient drives 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 This note stands as the current Discharge Summary upon patient discharge from the hospital or completion of Occupational Therapy Plan of Care. [facility] 05-29-2025 Consult note Formatting of th is note is different from the original. Occupational Therapy OCCUPATIONAL THERAPY EVALUATION Skilled Therapy Needs After Discharge Are OT Skilled Therapy Services Needed After Discharge: No OT DME Recommendation: None Rehab Potential: (N/A; Evaluation Only.) OT Caregiver Readiness OT Rationale: Stroke Caregiver Readiness OT Training Progress: Completed OT Identified Caregiver: Sister, Son (Patient) Caregiver Present for OT Session: Yes OT Training Provided For: (Signs/Symptoms of Stroke; Importance of Early Detection.) Caregiver response to OT training: Verbalizes understanding Outcomes Measures Prior Function Daily Activity Raw Score: 24 Prior Function Daily Activity % Impaired: 0% AM-PAC Daily Activity Raw Score: 24 AM-PAC Daily Activity % Impaired: 0% Occupational Therapy Assessment The patient does not present with any current functional participation deficits. The patient's co morbidities do not affect patient performance in the above activities and roles. The patient's home setup is a footwear machinery instructor, family / caregiver support is a footwear machinery instructor for return to prior level of function. The patient's education level is a footwear machinery instructor, compliance is a footwear machinery instructor, awareness of own capacity and performance is a footwear machinery instructor to return to prior level of function. During the assessment, no modification of task was required and limited treatment options were identified in the plan of care. This consultation required expanded review of the medical and therapy history. Medical Diagnosis: Acute L-sided Weakness; Dizziness; Vertigo; r/o CVA; s/p TNK Administration. UE Function: Bilateral UE AROM to WNL and strength is grossly 4- to 5/5 in areas tested with gross grasp about 5/5; pt was able to oppose thumb to digits using bilateral hands. Activity Tolerance Activity Tolerance: (On room air; no SOB noted with activity exertion; pt denied feeling dizzy upon inquiry.) Therapy Precautions Orthotic Devices: No Weight Bearing Status: [facility] General Rehab Precautions: Fall risk (Pt lowered to the floor by family MACHINE GRAINER x1.) Activity as Tolerated Cognition Arousal/Alertness: Appropriate responses to stimuli Orientation Level: Oriented to place, Oriented to time, Oriented to person (Knew birthdate.) Attention: Attends to quiet environment Hearing Status: [facility] Social Interaction: [facility] ADL Grooming: Independent (Combed hair and completed oral care using mouthwash-basin at chair level.) Lower Body Dressing: Independent (Donned/doffed socks and slip-on sandals at chair level.) Functional Mobility: Independent (With short distance ambulation in room w/out AD.) Bed Mobility Not tested. Functional Transfers Sit to Stand: Independent (Independent w/stand to sit transition at chair.) Bed to Chair Transfers: Independent Power Press Operator: (None) (Independent w/dynamic sitting at chair level during LB dressing tasks; independent with static standing w/out AD or UE support against maximal manual resistance; independent with object retrieval outside standing ARMANDO w/UE without LOB observed, including object placed at floor level, without use of UE support for standing stability.) Additional Assessment Details Pt does not present with deficits that warrant follow-up OT treatment. Pt appears to be at her baseline status for functional mobility and self-care tasks. OT reviewed the importance of early detection and recognition of the signs/symptoms of stroke to promote the best functional outcome. OT also educated pt on healthy lifestyle habits to promote stroke prevention to include a healthy diet, regular exercise, medication compliance, and BP monitoring. Pt's son and sister at bedside during education. OT will sign off case at this time. Home Living Obtained Home Living and PLOF info from: Patient Lives With: Spouse (Family can assist at home upon discharge.) Type of Home: Condo Home Layout: One level Steps to enter home: No Bathroom Shower/Tub: Walk-in shower Bathroom Toilet: Raised Bathroom Equipment: Grab bars in shower, Shower chair Bathroom Accessibility: Accessible via walker Mobility Equipment: Wheeled walker, Rollator ADL Equipment: [employer] Chair Prior Level of Function Level of [place] - Transfers/Ambulation/Mobility: Independent with functional transfers, Independent with household ambulation, Independent with community ambulation (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.) Level of [place] - ADLs: Independent Level of [place] - Homemaking: (Pt and spouse shared cooking tasks; independent w/laundry tasks within condo.) Driving: Patient drives 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 This note stands as the current Discharge Summary upon patient discharge from the hospital or completion of Occupational Therapy Plan of Care. Physical Therapy PHYSICAL THERAPY EVALUATION, TREATMENT, AND DISCHARGE NOTE PHYSICAL THERAPY EVALUATION Skilled Therapy Needs After Discharge Are genomics scientist Therapy Services Needed After Discharge: No PT DME Recommendation: None Rehab Potential: Good PT Caregiver Readiness PT Rationale: Stroke Caregiver Readiness PT Training Progress: Not required - patient / caregiver(s) demonstrate(s) safe technique for discharge Outcomes Measures Prior Function - Basic Mobility Raw Score: 24 Points Prior Function - Basic Mobility % Impaired: 0% AM-PAC Basic Mobility Raw Score: 22 Points AM-PAC Basic Mobility % Impaired: 25.02% Physical Therapy Assessment History: The following factors influence the patient's participation in the PT plan of care: Personal Factors: None Environmental Factors: (NA) The following co-morbidities (from this admission or prior) influence the patient's participation in this plan of care: in note Number of History elements affecting this patient's PT plan of care: 3 or more Examination of Body Systems: The patient presents with: Musculoskeletal impairments: Functional Endurance Neurologic Impairments: Balance. These impairments result in limitations of Gait. These impairments result in restrictions of Household mobility, Community mobility. Number of Body Systems elements affecting this patient's PT plan of care: 1 to 2. Clinical Presentation: The patient's clinical presentation for this PT evaluation is evolving with changing characteristics as evidenced by current PT documentation. 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 - Standing Static: (none) Bed Mobility Supine to Sit: Independent Transfers Sit to Stand: Independent Gait/Locomotion Gait Assistance: Contact guard assist, Stand by assist (CGA progressing to SBA) Assistive Device: (none) Distance: 175 Feet Pattern: decreased yanni (steps per minute) Gait Loss(es) of Balance: (none) Home Living Obtained Home Living and PLOF info from: Patient Lives With: Spouse (Family can assist at home upon discharge.) [facility]: One level Steps to enter home: No Bathroom Shower/Tub: Walk-in shower Bathroom Toilet: Raised Bathroom Equipment: Grab bars in shower, Shower chair Bathroom Accessibility: Accessible via walker Mobility Equipment: Wheeled walker, Rollator ADL Equipment: [employer] Chair Prior Level of Function Level of [place] - Transfers/Ambulation/Mobility: Independent with functional transfers, Independent with household ambulation, Independent with community ambulation (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.) Level of [place] - ADLs: Independent Level of [place] - Homemaking: (Pt and spouse shared cooking tasks; independent w/laundry tasks within condo.) Driving: Patient drives 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[place], [place].) PHYSICAL THERAPY TREATMENT NOTE Gait Training Skilled Intervention Provided: facilitation, monitoring patient response with activity, provided step by step instructions, patient education For: gait technique, gait sequence, fall prevention Additional Treatment Details No chair alarm on pt pre PT Past Medical History: Diagnosis Date Cancer (HCC) Hypertension Past Surgical History: Procedure Laterality Date LUNG REMOVAL, PARTIAL Right For complete objective data, detailed plan of care and patient education refer to: PT Evaluation flowsheet, PT Evaluation and Treatment flowsheet, PT Treatment flowsheet, patient Plan of Care, Plan of Care progress note, and Patient Education. This note stands as the current Discharge Summary upon patient discharge from the hospital or completion of Physical Therapy Plan. Speech Pathology General Cognition / Communication Eval Note Per chart, Lidia Ortiz is a 80 y.o. female patient of Ferdinand Montague DO with history of former tobacco use disorder, non-small cell lung cancer of the right lung s/p lobectomy 3 years ago, dyslipidemia, hypertension, type 2 diabetes mellitus presented to [facility] on 05/28/2025 with dizziness and headache with LOC. Stroke code level 1 was called in the ED. MRI: IMPRESSION: No acute ischemia. Patient demonstrated grossly WFL cognitive-communication skills per informal assessment this date. Auditory Comprehension Severity rating: WFL Expressive Language Severity rating: WFL Motor Speech Severity rating: WFL Cognition Severity rating: WFL Factors for returning to Prior Level of Function: Factors for Returning to Prior Level of Function Body Structure and Function: Neurologic impairment Explain Impairments: stroke-like s/sx Activities and Participation: ADL/IADL limitation Explain Limitations: acute left sided weakness, vertigo Environmental Factors: Home situation, Family/caregiver support Explain Environmental Factors: lives at home w/spouse Personal Factors: Awareness of own capacity and performance Explain Personal Factors: voicing insight Skilled therapy needs: Skilled Therapy Needs: Are ST Skilled Therapy Services Needed After Discharge: No Prior function: Prior Function Reason for Referral: (Stroke-like s/sx) Primary Language: [place] 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 Living Situation: With others, Independent with ADL's, Drives Prior Speech Deficit: No known previous deficits, Per chart review, Per patient report Prior Language Deficit: No known previous deficits, Per chart review, Per patient report Prior Cognitive Deficit: (Age related changes per patient report) Other pertinent diagnoses affecting cog/comm/voice: (Stroke-like s/sx) Baseline Assessment Subjective Impression: Alert, Cooperative, Pleasant Mood Respiratory Status: Room air Oral motor: Oral/Motor Oral Motor Impression-Severity Scale: WFL Auditory Comprehension: Auditory Comp Impression-Severity Scale: WFL Visual Perception: Visual Perception: No acute visual changes Reading Comprehension: Reading Comp Impression-Severity: Requires further assessment Expressive Language: Expressive Language Impression-Severity: WFL Primary Mode of Expression: Verbal, Complex conversation level Aphasia: None present Motor Speech: Motor Speech Impression Severity: WFL Written Expression: Written Expression Impression-Severity: Requires further assessment Cognitive-Communication: Speech Cognition Impression-Severity: WFL Orientation Level: Oriented x4 Attention: Within Functional Limits Memory: Within Funtional Limits Verbal Problem Solving: Within Functional Limits Behavioral Observations: good awareness of safety precautions Insight: Within function limits Task Initiation: WFL Flexibility of Thought: Within functional limits Organization: Within functional limits Pragmatics: No overt deficits Patient O-Log (Orientation Log) Score - Cut off score 25 or better on two separate administrations: Orientation-Log Orientation-log: Yes City: [address]: 3 Name of Hospital: 3 Month: 3 Date: 3 Year: 3 Day of Week: 3 Clock Time: 3 Etiology / Event: 3 Pathology Deficits: 3 Orientation Log Total Score (out of 30): 30 Patient Cog-Log (Cognitive Log) Score - Cut off score 25 or better: Cognitive-Log Cognitive-log: Yes Date: 3 Clock Time: 3 Name of Hospital: 3 Repeat Address: 3 20 to 1: 3 Months Reversed: 3 30 Seconds: 3 [place]: 3 Go / No-Go: 2 Address Recall: 3 Cognitive Log Total Score (out of 30): 29 Cognitive Log Impression: Score suggests within functional limits attention/concentration and memory. MAGNETIC RESONANCE TECHNOLOGIST Caregiver Readiness: MAGNETIC RESONANCE TECHNOLOGIST Caregiver Readiness ST Training Progress: Not required - patient / caregiver(s) demonstrate(s) safe technique for discharge Speech Plan: Further acute Speech Therapy services indicated: No Past Medical History: Diagnosis Date Cancer (HCC) Hypertension Past Surgical History: Procedure Laterality Date LUNG REMOVAL, PARTIAL Right For complete objective data, detailed plan of care, and education refer to: Speech Comm/Cog Eval flow sheet, as well as patient Plan of Care and Education documentation. This note stands as the current Discharge Summary upon patient discharge from the hospital or completion of Speech Pathology Plan of Care Associated Order(s): IP CONSULT TO NEUROLOGY Neurology Inpatient Notes [facility] [place] [id number] (phone)/[phone] (fax) Patient: Lidia Ortiz Date of : 1945 Primary Care Provider: Ferdinand Montague DO Assessment/Plan: Patient developed sudden onset of left frontal sharp pain accompanied by transient loss of consciousness, nausea, vertiginous sensation. Telestroke neurology was activated. She was given TNK and admitted to ICU. Symptoms lasted around 7 hours in duration and spontaneously resolved. Brain MRI showed no acute stroke. She is on aspirin 81 mg daily. She gets myalgia with pravastatin but doing well with rosuvastatin. Consider whether she had TIA since her symptoms resolved after 7 hours and brain MRI showed no acute infarct. She has an incidental PFO. Her cerebrovascular risk factors include age, hypertension, hyperlipidemia, diabetes mellitus, obstructive sleep apnea, and family history of stroke. Labs/Imaging/Ancillary test: CBC was normal. BUN and creatinine were normal. Serum sodium and potassium were normal. LDL-C 86. Hemoglobin A1c 7.3. Ionized calcium was normal. EKG showed sinus bradycardia with first-degree AV block and right bundle branch block with left anterior fascicular block. Cardiac echo showed PFO with left to right shunting. Pulmonary hypertension. Carotid Doppler showed less than 50% bilateral ICA stenosis. Bilateral vertebral artery stenosis. Brain MRI: No acute ischemia. Chronic intracranial change described above. Head CT: 1. No acute findings. No hemorrhage. No masses. 2. Moderate brain atrophy. Moderate chronic microvascular changes. CTA: 1. 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 2. Focal severe stenosis at the origin of the non dominant right vertebral artery. 3. Short segment of irregularity and a beaded appearance in the left cervical internal carotid artery, suspicious for fibromuscular dysplasia. 4. No acute findings on noncontrast head CT. MRI is a more sensitive examination to evaluate for acute infarction. 5. Mild generalized parenchymal volume loss and findings that raise the possibility for a component of superimposed communicating hydrocephalus. Impression: Transient ischemic attack Intracranial vascular stenosis Patent foramen ovale Fibromuscular dysplasia Hypertension Hyperlipidemia Diabetes mellitus History of non-small cell lung cancer status post lobectomy Suggestion: Aspirin 81 mg daily and Plavix 75 mg daily for 21 days followed by monotherapy with Plavix 75 mg daily for stroke prevention. Continue Crestor 10 mg nightly and low-cholesterol diet. Low-sodium diet and continue management of hypertension with a goal blood pressure of less than 140/90. Continue management of diabetes. Low carbohydrate diet. Monitor blood sugar regularly with a goal hemoglobin A1c of less than 7. Continue BiPAP for obstructive sleep apnea. Regular exercise and institute fall precautions. Analgesic as needed. Antiemetic as needed. Monitor for any recurrent attacks of vertigo and may prescribe meclizine as needed. Monitor for any recurrent TIA or stroke symptoms. No further suggestion at this time. Will sign off. Please call if needed. Follow-up with outpatient neurology in 2 to 3 weeks. I have personally reviewed/visualized the patient's images, as documented above. I have personally reviewed the patient's labs, procedure and ancillary testing as listed above. Impression, plan and suggestions was discussed with the patient/family/caregivers. Questions and concerns were discussed and addressed. This note was created in part using a speech-recognition software. Timed code: 82 minutes I personally spent the above time on this encounter today which includes time preparation to see the patient (reviewing previous history, notes, exam, test, procedure, and medications); Obtaining history from the patient/family/caregivers; performing face to face evaluation and examination; ordering medications, tests, or procedures; referring and communicating with other healthcare professionals; update, counseling and education of the patient/family/caregiver; independently interpreting results (Tests, labs, imaging) and communicating results to the patient/family/caregiver; coordination of care; documenting clinical information in the electronic and other health records. Subjective (CC/HPI): Patient is a 80-year-old female who was seen in the ER because of sudden onset of sharp pain on the left frontal area accompanied by vertiginous sensation and loss of consciousness for few seconds. She awakens on the floor but her cannot get her up and he called 911. On the floor, patient still felt vertiginous and nauseous especially if she begins to talk. She has no dysarthria, aphasia, focal limb weakness, numbness, or incoordination. She described generalized malaise. The symptoms started around 12:30 PM and lasted around 6 to 7 PM. Telestroke neurology was activated. NIH stroke scale is 6. CT of the head showed no bleeding. TNK was given around 2:58 PM. The following day she remains asymptomatic. She has been using 81 mg aspirin daily. She mentions some intolerance to Pravachol and has been doing well with rosuvastatin. Past medical history include: Hypertension, hyperlipidemia, diabetes mellitus, non-small cell lung cancer status post lobectomy, obstructive sleep apnea on BiPAP. Social history: Former smoker Family history: Family history is positive for stroke ROS: All systems reviewed and negative except pertinent positives and negatives documented in the HPI and below. Objective: BP (!) 144/63 Pulse 64 Temp 97.5 F (36.4 C) (Oral) Resp 12 Wt 77.9 kg (171 lb 11.8 oz) SpO2 97% Patient is awake and alert. Neck is supple. No carotid bruit. Heart rate and rhythm is regular. Pulses are 2+ symmetrically. Patient is oriented. Attention and comprehension were intact. Speech is fluent and is spontaneous. Language is intact. Follow simple commands. Pupils are 4 mm equally reactive to light. No ptosis, nystagmus, or visual field cuts. Extraocular muscles are intact. Face is symmetrical and facial sensation is intact. Hearing is grossly intact. Palate moved symmetrical upward. Positive shoulder shrug. Tongue is midline. Gross strength in the upper and lower extremity were 5/5. Normal muscle tone and bulk. No muscle fasciculations. Gross sensory is intact to pinprick, vibration, light touch, and proprioception. There is slight decreased vibration in the big toe on the left foot. No tremors or abnormal movements. Finger to nose test was normal. Toe to finger test was normal. Deep tendon reflexes are symmetrical. No ankle clonus. Toes are downgoing on plantar stimulation. documented in this encounter [facility] 05-29-2025 Plan of care note Physical Therapy Plan of Care Certification Note Medicare billing rules require the provider to review and certify the physical therapy plan of care for patients in observation or outpatient status. This co-signature is to electronically certify that the above-named patient, who is under my care, requires skilled therapy services as described in the treatment plan below. I further certify that the services outlined in this plan are skilled and medically necessary. I have reviewed this plan of care for rehabilitation services and recommend that these services continue until the patient is discharged from this hospitalization or the patient is discharged from physical therapy services. Coded Admission Diagnosis Dizziness [R42] Photophobia [H53.149] Headache [R51.9] Acute CVA (cerebrovascular accident) ([facility]) [I63.9] Syncope, unspecified syncope type [R55] Cerebrovascular accident (CVA), unspecified mechanism ([facility]) [I63.9] PT Functional Diagnosis: R26.2 Difficulty in walking, not elsewhere classified PT Goals Encounter Problems (Active) Problem: Mobility - Impaired Dates: Start: 05/29/25 Disciplines: PT Goal: PT- ambulation Dates: Start: 05/29/25 Description: PT - Patient will ambulate 150 feet without device with stand by assist to improve functional mobility and safety. Disciplines: PT Intervention: Education, Gait training Frequency: PRN Dates: Start: 05/29/25 Frequency of Treatment: (DC PT) This physical Therapy Plan of Care will be carried out until: 1.) The PT plan has been resolved or 2.) The patient is discharged from the [facility] Cosigned by Js Navas DO at 05/29/2025 4:07 PM EDT [facility] 05-29-2025 Consult note Formatting of th is note is different from the original. Physical Therapy PHYSICAL THERAPY EVALUATION, TREATMENT, AND DISCHARGE NOTE PHYSICAL THERAPY EVALUATION Skilled Therapy Needs After Discharge Are genomics scientist Therapy Services Needed After Discharge: No PT DME Recommendation: None Rehab Potential: Good PT Caregiver Readiness PT Rationale: Stroke Caregiver Readiness PT Training Progress: Not required - patient / caregiver(s) demonstrate(s) safe technique for discharge Outcomes Measures Prior Function - Basic Mobility Raw Score: 24 Points Prior Function - Basic Mobility % Impaired: 0% AM-PAC Basic Mobility Raw Score: 22 Points AM-PAC Basic Mobility % Impaired: 25.02% Physical Therapy Assessment History: The following factors influence the patient's participation in the PT plan of care: Personal Factors: None Environmental Factors: (NA) The following co-morbidities (from this admission or prior) influence the patient's participation in this plan of care: in note Number of History elements affecting this patient's PT plan of care: 3 or more Examination of Body Systems: The patient presents with: Musculoskeletal impairments: Functional Endurance Neurologic Impairments: Balance. These impairments result in limitations of Gait. These impairments result in restrictions of Household mobility, Community mobility. Number of Body Systems elements affecting this patient's PT plan of care: 1 to 2. Clinical Presentation: The patient's clinical presentation for this PT evaluation is evolving with changing characteristics as evidenced by current PT documentation. 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 - Standing Static: (none) Bed Mobility Supine to Sit: Independent Transfers Sit to Stand: Independent Gait/Locomotion Gait Assistance: Contact guard assist, Stand by assist (CGA progressing to SBA) Assistive Device: (none) Distance: 175 Feet Pattern: decreased yanni (steps per minute) Gait Loss(es) of Balance: (none) Home Living Obtained Home Living and PLOF info from: Patient Lives With: Spouse (Family can assist at home upon discharge.) Type of Home: Condo Home Layout: One level Steps to enter home: No Bathroom Shower/Tub: Walk-in shower Bathroom Toilet: Raised Bathroom Equipment: Grab bars in shower, Shower chair Bathroom Accessibility: Accessible via walker Mobility Equipment: Wheeled walker, Rollator ADL Equipment: [employer] Chair Prior Level of Function Level of [place] - Transfers/Ambulation/Mobility: Independent with functional transfers, Independent with household ambulation, Independent with community ambulation (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.) Level of [place] - ADLs: Independent Level of [place] - Homemaking: (Pt and spouse shared cooking tasks; independent w/laundry tasks within condo.) Driving: Patient drives 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[place], [place].) PHYSICAL THERAPY TREATMENT NOTE Gait Training Skilled Intervention Provided: facilitation, monitoring patient response with activity, provided step by step instructions, patient education For: gait technique, gait sequence, fall prevention Additional Treatment Details No chair alarm on pt pre PT Past Medical History: Diagnosis Date Cancer (HCC) Hypertension Past Surgical History: Procedure Laterality Date LUNG REMOVAL, PARTIAL Right For complete objective data, detailed plan of care and patient education refer to: PT Evaluation flowsheet, PT Evaluation and Treatment flowsheet, PT Treatment flowsheet, patient Plan of Care, Plan of Care progress note, and Patient Education. This note stands as the current Discharge Summary upon patient discharge from the hospital or completion of Physical Therapy Plan. [facility] 05-29-2025 Consult note Formatting of th is note is different from the original. Speech Pathology General Cognition / Communication Eval Note Per chart, Lidia Ortiz is a 80 y.o. female patient of Ferdinand Montague DO with history of former tobacco use disorder, non-small cell lung cancer of the right lung s/p lobectomy 3 years ago, dyslipidemia, hypertension, type 2 diabetes mellitus presented to [facility] on 05/28/2025 with dizziness and headache with LOC. Stroke code level 1 was called in the ED. MRI: IMPRESSION: No acute ischemia. Patient demonstrated grossly WFL cognitive-communication skills per informal assessment this date. Auditory Comprehension Severity rating: WFL Expressive Language Severity rating: WFL Motor Speech Severity rating: WFL Cognition Severity rating: WFL Factors for returning to Prior Level of Function: Factors for Returning to Prior Level of Function Body Structure and Function: Neurologic impairment Explain Impairments: stroke-like s/sx Activities and Participation: ADL/IADL limitation Explain Limitations: acute left sided weakness, vertigo Environmental Factors: Home situation, Family/caregiver support Explain Environmental Factors: lives at home w/spouse Personal Factors: Awareness of own capacity and performance Explain Personal Factors: voicing insight Skilled therapy needs: Skilled Therapy Needs: Are ST Skilled Therapy Services Needed After Discharge: No Prior function: Prior Function Reason for Referral: (Stroke-like s/sx) Primary Language: [place] 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 Living Situation: With others, Independent with ADL's, Drives Prior Speech Deficit: No known previous deficits, Per chart review, Per patient report Prior Language Deficit: No known previous deficits, Per chart review, Per patient report Prior Cognitive Deficit: (Age related changes per patient report) Other pertinent diagnoses affecting cog/comm/voice: (Stroke-like s/sx) Baseline Assessment Subjective Impression: Alert, Cooperative, Pleasant Mood Respiratory Status: Room air Oral motor: Oral/Motor Oral Motor Impression-Severity Scale: WFL Auditory Comprehension: Auditory Comp Impression-Severity Scale: WFL Visual Perception: Visual Perception: No acute visual changes Reading Comprehension: Reading Comp Impression-Severity: Requires further assessment Expressive Language: Expressive Language Impression-Severity: WFL Primary Mode of Expression: Verbal, Complex conversation level Aphasia: None present Motor Speech: Motor Speech Impression Severity: WFL Written Expression: Written Expression Impression-Severity: Requires further assessment Cognitive-Communication: Speech Cognition Impression-Severity: WFL Orientation Level: Oriented x4 Attention: Within Functional Limits Memory: Within Funtional Limits Verbal Problem Solving: Within Functional Limits Behavioral Observations: good awareness of safety precautions Insight: Within function limits Task Initiation: WFL Flexibility of Thought: Within functional limits Organization: Within functional limits Pragmatics: No overt deficits Patient O-Log (Orientation Log) Score - Cut off score 25 or better on two separate administrations: Orientation-Log Orientation-log: Yes City: [address]: 3 Name of Hospital: 3 Month: 3 Date: 3 Year: 3 Day of Week: 3 Clock Time: 3 Etiology / Event: 3 Pathology Deficits: 3 Orientation Log Total Score (out of 30): 30 Patient Cog-Log (Cognitive Log) Score - Cut off score 25 or better: Cognitive-Log Cognitive-log: Yes Date: 3 Clock Time: 3 Name of Hospital: 3 Repeat Address: 3 20 to 1: 3 Months Reversed: 3 30 Seconds: 3 Fist [place]m: 3 Go / No-Go: 2 Address Recall: 3 Cognitive Log Total Score (out of 30): 29 Cognitive Log Impression: Score suggests within functional limits attention/concentration and memory. MAGNETIC RESONANCE TECHNOLOGIST Caregiver Readiness: MAGNETIC RESONANCE TECHNOLOGIST Caregiver Readiness ST Training Progress: Not required - patient / caregiver(s) demonstrate(s) safe technique for discharge Speech Plan: Further acute Speech Therapy services indicated: No Past Medical History: Diagnosis Date Cancer (HCC) Hypertension Past Surgical History: Procedure Laterality Date LUNG REMOVAL, PARTIAL Right For complete objective data, detailed plan of care, and education refer to: Speech Comm/Cog Eval flow sheet, as well as patient Plan of Care and Education documentation. This note stands as the current Discharge Summary upon patient discharge from the hospital or completion of Speech Pathology Plan of Care [facility] 05-29-2025 Note HMS PROGRESS NOTE Patient Name: Lidia Ortiz : 1945 Assessment and Plan Lidia Ortiz is a 80 y.o. female patient of Ferdinand Montague DO with history of former tobacco use disorder, non-small cell lung cancer of the right lung s/p lobectomy 3 years ago, dyslipidemia, hypertension, type 2 diabetes mellitus presented to [facility] on 05/28/2025 with dizziness and headache with LOC. Stroke code level 1 was called in the ED.. 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 Blood pressure goal still remains systolic less than 180. As needed nicardipine drip. Hold aspirin until 3 PM today when 24 hours will be done. Continue Crestor. Pending PT OT per Neurology consult. Hypertension Dyslipidemia Home medication losartan and metoprolol, will hold for now Using nicardipine drip for goal blood pressure 180/110. Type 2 diabetes mellitus Last A1c 2 years ago 6.4 A1c Home medication metformin BG on admission 148 Keep BG between 140 and 180 Non-small cell lung cancer S/p lobectomy 3 years ago Continue respiratory support Pain control Resolved acute medical issues Discharge Planning Patient Medically Ready for Discharge: no Patient requires continued hospitalization due to: TKS Expected Date of Discharge: 1 day Expected Discharge Location: Home Quality Measures DVT Prophylaxis: SCDs Christiansen Catheter: absent Code Status Full Code Primary Contact Information Subjective This morning sitting up in chair reports no lightheadedness. Says that she may have passed out she is not really sure, her legs gave out in the kitchen and was caught by her dad. Denies any complaints at this time. Objective BP (!) 153/63 Pulse 90 Temp 98.6 degrees F (37 degrees C) (Oral) Resp 14 Wt 77.9 kg (171 lb 11.8 oz) SpO2 95% Physical Examination General Appearance: alert; acute on chronically ill appearing; in mild acute distress HEENT: Head- normocephalic; Eyes- EOMI, sclera anicteric; Throat- mucous membranes moist Cardiovascular: regular rate and rhythm; normal S1, S2; no murmurs, rubs, clicks or gallops; peripheral edema absent Respiratory: lungs clear to auscultation; without wheezes, rales or rhonchi; on room air Abdomen: soft, non-tender, non-distended Neurological: oriented x 3; normal speech; no focal findings or movement disorder noted Musculoskeletal: no significant deformity or tenderness to palpation Skin: normal coloration Psych: normal mood and affect AUTHENTICATED BY RAQUEL SOLORZANO, ON 05/29/2025 10:50:25 [facility] 05-29-2025 Consult note Associated Order (s): IP CONSULT TO NEUROLOGY Neurology Inpatient Notes [facility] [address] [address] (phone)/[phone] (fax) Patient: Lidia Ortiz Date of : 1945 Primary Care Provider: Ferdinand Montague DO Assessment/Plan: Patient developed sudden onset of left frontal sharp pain accompanied by transient loss of consciousness, nausea, vertiginous sensation. Telestroke neurology was activated. She was given TNK and admitted to ICU. Symptoms lasted around 7 hours in duration and spontaneously resolved. Brain MRI showed no acute stroke. She is on aspirin 81 mg daily. She gets myalgia with pravastatin but doing well with rosuvastatin. Consider whether she had TIA since her symptoms resolved after 7 hours and brain MRI showed no acute infarct. She has an incidental PFO. Her cerebrovascular risk factors include age, hypertension, hyperlipidemia, diabetes mellitus, obstructive sleep apnea, and family history of stroke. Labs/Imaging/Ancillary test: CBC was normal. BUN and creatinine were normal. Serum sodium and potassium were normal. LDL-C 86. Hemoglobin A1c 7.3. Ionized calcium was normal. EKG showed sinus bradycardia with first-degree AV block and right bundle branch block with left anterior fascicular block. Cardiac echo showed PFO with left to right shunting. Pulmonary hypertension. Carotid Doppler showed less than 50% bilateral ICA stenosis. Bilateral vertebral artery stenosis. Brain MRI: No acute ischemia. Chronic intracranial change described above. Head CT: 1. No acute findings. No hemorrhage. No masses. 2. Moderate brain atrophy. Moderate chronic microvascular changes. CTA: 1. 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 2. Focal severe stenosis at the origin of the non dominant right vertebral artery. 3. Short segment of irregularity and a beaded appearance in the left cervical internal carotid artery, suspicious for fibromuscular dysplasia. 4. No acute findings on noncontrast head CT. MRI is a more sensitive examination to evaluate for acute infarction. 5. Mild generalized parenchymal volume loss and findings that raise the possibility for a component of superimposed communicating hydrocephalus. Impression: Transient ischemic attack Intracranial vascular stenosis Patent foramen ovale Fibromuscular dysplasia Hypertension Hyperlipidemia Diabetes mellitus History of non-small cell lung cancer status post lobectomy Suggestion: Aspirin 81 mg daily and Plavix 75 mg daily for 21 days followed by monotherapy with Plavix 75 mg daily for stroke prevention. Continue Crestor 10 mg nightly and low-cholesterol diet. Low-sodium diet and continue management of hypertension with a goal blood pressure of less than 140/90. Continue management of diabetes. Low carbohydrate diet. Monitor blood sugar regularly with a goal hemoglobin A1c of less than 7. Continue BiPAP for obstructive sleep apnea. Regular exercise and institute fall precautions. Analgesic as needed. Antiemetic as needed. Monitor for any recurrent attacks of vertigo and may prescribe meclizine as needed. Monitor for any recurrent TIA or stroke symptoms. No further suggestion at this time. Will sign off. Please call if needed. Follow-up with outpatient neurology in 2 to 3 weeks. I have personally reviewed/visualized the patient's images, as documented above. I have personally reviewed the patient's labs, procedure and ancillary testing as listed above. Impression, plan and suggestions was discussed with the patient/family/caregivers. Questions and concerns were discussed and addressed. This note was created in part using a speech-recognition software. Timed code: 82 minutes I personally spent the above time on this encounter today which includes time preparation to see the patient (reviewing previous history, notes, exam, test, procedure, and medications); Obtaining history from the patient/family/caregivers; performing face to face evaluation and examination; ordering medications, tests, or procedures; referring and communicating with other healthcare professionals; update, counseling and education of the patient/family/caregiver; independently interpreting results (Tests, labs, imaging) and communicating results to the patient/family/caregiver; coordination of care; documenting clinical information in the electronic and other health records. Subjective (CC/HPI): Patient is a 80-year-old female who was seen in the ER because of sudden onset of sharp pain on the left frontal area accompanied by vertiginous sensation and loss of consciousness for few seconds. She awakens on the floor but her cannot get her up and he called 911. On the floor, patient still felt vertiginous and nauseous especially if she begins to talk. She has no dysarthria, aphasia, focal limb weakness, numbness, or incoordination. She described generalized malaise. The symptoms started around 12:30 PM and lasted around 6 to 7 PM. Telestroke neurology was activated. NIH stroke scale is 6. CT of the head showed no bleeding. TNK was given around 2:58 PM. The following day she remains asymptomatic. She has been using 81 mg aspirin daily. She mentions some intolerance to Pravachol and has been doing well with rosuvastatin. Past medical history include: Hypertension, hyperlipidemia, diabetes mellitus, non-small cell lung cancer status post lobectomy, obstructive sleep apnea on BiPAP. Social history: Former smoker Family history: Family history is positive for stroke ROS: All systems reviewed and negative except pertinent positives and negatives documented in the HPI and below. Objective: BP (!) 144/63 Pulse 64 Temp 97.5 F (36.4 C) (Oral) Resp 12 Wt 77.9 kg (171 lb 11.8 oz) SpO2 97% Patient is awake and alert. Neck is supple. No carotid bruit. Heart rate and rhythm is regular. Pulses are 2+ symmetrically. Patient is oriented. Attention and comprehension were intact. Speech is fluent and is spontaneous. Language is intact. Follow simple commands. Pupils are 4 mm equally reactive to light. No ptosis, nystagmus, or visual field cuts. Extraocular muscles are intact. Face is symmetrical and facial sensation is intact. Hearing is grossly intact. Palate moved symmetrical upward. Positive shoulder shrug. Tongue is midline. Gross strength in the upper and lower extremity were 5/5. Normal muscle tone and bulk. No muscle fasciculations. Gross sensory is intact to pinprick, vibration, light touch, and proprioception. There is slight decreased vibration in the big toe on the left foot. No tremors or abnormal movements. Finger to nose test was normal. Toe to finger test was normal. Deep tendon reflexes are symmetrical. No ankle clonus. Toes are downgoing on plantar stimulation. [facility] 05-28-2025 Plan of care note Problem: Actual or potential alteration in health Goal: Absence of healthcare acquired conditions Outcome: Partially Met Goal: Knowledge of Interdisciplinary Plan of Care Outcome: Partially Met Goal: Knowledge of Enviroment Outcome: Partially Met Problem: Pressure Injury, Risk of Goal: Absence of pressure injury Outcome: Partially Met [facility] 05-28-2025 Emergency department Note ED to Inpatient Nurses Report No chief complaint on file. Present to Ed from home LOC Alert (+0) Vital Signs Vitals: 05/28/25 1706 05/28/25 1710 05/28/25 1715 05/28/25 1720 BP: 129/64 138/70 130/60 134/69 Pulse: 66 66 66 66 Resp: Temp: TempSrc: SpO2: 96% 95% 96% 96% Weight: Oxygen Baseline Current needs required LDAs Peripheral IV 05/28/25 Right Antecubital (Active) Peripheral IV 05/28/25 Left Antecubital (Active) Site Assessment Clean;Dry 05/28/25 1501 Line Status Blood return noted 05/28/25 150 Moblity:fair Swallow Screen completed:Yes NPO:Yes Pending Ed Orders Present Condition Person of Contract Phone Number [employer] Report given to ICU [facility] was given to patient [facility] 05-28-2025 Emergency department Note ED to Inpatient Nurses Report No chief complaint on file. Present to Ed from home LOC Alert (+0) Vital Signs Vitals: 05/28/25 1706 05/28/25 1710 05/28/25 1715 05/28/25 1720 BP: 129/64 138/70 130/60 134/69 Pulse: 66 66 66 66 Resp: Temp: TempSrc: SpO2: 96% 95% 96% 96% Weight: Oxygen Baseline Current needs required LDAs Peripheral IV 05/28/25 Right Antecubital (Active) Peripheral IV 05/28/25 Left Antecubital (Active) Site Assessment Clean;Dry 05/28/25 1501 Line Status Blood return noted 05/28/25 1501 Moblity:fair Swallow Screen completed:Yes NPO:Yes Pending Ed Orders Present Condition Person of Contract Phone Number [employer] Report given to ICU [facility] was given to patient Dr gunter at bedside [facility] tele med speaking to pt spouse and son Son at bedside Associated Order(s): Critical Care; ECG 12 Lead (Now) [facility] EMERGENCY DEPARTMENT ATTENDING NOTE: NAME: Lidia Ortiz CSN: [id number] 80 y.o. PCP: Ferdinand Montague DO History: Chief Complaint: No chief complaint on file. HPI: 80-year-old female past medical history of hypertension hyperlipidemia diabetes presents to the emergency department as a level 1 stroke alert following dizziness symptoms and headache symptoms with resultant loss of consciousness. Patient describes headache symptoms with room spinning sensation. Patient with a lams of 2. No specific alleviating or aggravating factors. Patient denies any other symptoms at this time. Patient actively vomiting PMHx: Past Medical History: Diagnosis Date Cancer (HCC) Hypertension PMSx: Past Surgical History: Procedure Laterality Date LUNG REMOVAL, PARTIAL Right FAM. Hx: No family history on file. SOC. Hx: Social History [1] MEDs: Previous Medications Medication Sig losartan (COZAAR) 100 MG tablet Take 1 (one) tablet (100 mg total) by mouth every evening . metFORMIN (GLUCOPHAGE) 500 MG tablet Take 1 (one) tablet (500 mg total) by mouth every evening . metFORMIN (GLUCOPHAGE-XR) 500 MG 24 hr tablet Take 1 (one) tablet (500 mg total) by mouth daily with breakfast . metoprolol succinate (TOPROL-XL) 25 MG 24 hr tablet Take 1 (one) tablet (25 mg total) by mouth every evening . pioglitazone (ACTOS) 15 MG tablet Take 1 (one) tablet (15 mg total) by mouth daily . rosuvastatin 5 mg CpSP Take 1 (one) capsule (5 mg total) by mouth every other day . ALL: Allergies[2] Physical Exam: Patient Vitals for the past 24 hrs: BP Temp Temp src Pulse Resp SpO2 Weight 05/28/25 1720 134/69 -- -- 66 -- 96 % -- 05/28/25 1715 130/60 -- -- 66 -- 96 % -- 05/28/25 1710 138/70 -- -- 66 -- 95 % -- 05/28/25 1706 129/64 -- -- 66 -- 96 % -- 05/28/25 1645 (!) 115/57 -- -- 65 -- 96 % -- 05/28/25 1625 126/66 -- -- 65 14 96 % -- 05/28/25 1610 (!) 140/65 -- -- 63 15 99 % -- 05/28/25 1608 -- -- -- 65 -- 95 % -- 05/28/25 1607 -- -- -- 63 -- 96 % -- 05/28/25 1606 (!) 144/66 -- -- 63 -- 97 % -- 05/28/25 1603 (!) 169/80 -- -- 64 14 96 % -- 05/28/25 1600 (!) 169/80 -- -- 62 14 95 % -- 05/28/25 1555 (!) 186/89 -- -- 60 14 95 % -- 05/28/25 1550 (!) 178/80 -- -- (!) 59 14 96 % -- 05/28/25 1545 (!) 173/80 -- -- 60 15 93 % -- 05/28/25 1540 (!) 179/79 -- -- 62 -- 95 % -- 05/28/25 1535 (!) 181/81 -- -- 66 -- 91 % -- 05/28/25 1530 -- -- -- 73 -- 97 % -- 05/28/25 1520 (!) 175/83 -- -- (!) 57 -- 92 % -- 05/28/25 1515 (!) 169/76 -- -- 60 -- 100 % -- 05/28/25 1512 -- -- -- (!) 56 14 (!) 5 % -- 05/28/25 1510 (!) 164/74 -- -- (!) 56 -- 97 % -- 05/28/25 1505 (!) 163/78 -- -- (!) 58 -- 93 % -- 05/28/25 1500 (!) 155/75 -- -- (!) 57 -- 93 % -- 05/28/25 1456 126/83 -- -- (!) 56 -- 94 % -- 05/28/25 1446 (!) 149/66 -- -- (!) 58 -- 95 % -- 05/28/25 1440 (!) 155/71 -- -- (!) 53 -- 97 % -- 05/28/25 1435 139/69 -- -- -- -- 96 % -- 05/28/25 1431 (!) 145/70 -- -- (!) 52 -- 93 % -- 05/28/25 1430 -- -- -- (!) 54 -- 93 % -- 05/28/25 1426 139/68 -- -- (!) 51 -- 96 % -- 05/28/25 1423 131/65 -- -- (!) 57 -- 93 % -- 05/28/25 1415 (!) 149/135 -- -- (!) 54 -- 93 % -- 05/28/25 1411 136/71 97.7 F (36.5 C) Oral (!) 51 14 95 % 76.6 kg (168 lb 12.8 oz) 05/28/25 1409 139/67 -- -- (!) 51 -- 97 % -- 05/28/25 1400 -- -- -- -- -- 94 % -- Physical Exam Vitals and nursing note reviewed. Constitutional: General: She is awake. HENT: Head: Normocephalic and atraumatic. Right Ear: External ear normal. Left Ear: External ear normal. Nose: Nose normal. Mouth/Throat: Mouth: Mucous membranes are dry. Pharynx: Oropharynx is clear. Eyes: General: Lids are normal. No scleral icterus. Extraocular Movements: Extraocular movements intact. Pupils: Pupils are equal, round, and reactive to light. Cardiovascular: Rate and Rhythm: Normal rate. Pulmonary: Effort: Pulmonary effort is normal. No accessory muscle usage or respiratory distress. Abdominal: Palpations: Abdomen is soft. Skin: General: Skin is warm. Comments: No acute rash visualized on exposed skin Neurological: Mental Status: She is alert. GCS: GCS eye subscore is 4. GCS verbal subscore is 5. GCS motor subscore is 6. Cranial Nerves: No dysarthria or facial asymmetry. Sensory: Sensation is intact. Motor: Motor function is intact. Coordination: Coordination is intact. Comments: GCS of 14. Opens to verbal NIH Scale: LOC: 0 - alert LOC Questions: 0 - answers both correctly LOC Commands: 0 - performs both correctly Best gaze: 0 - normal Vision: 0 - no visual loss Facial Palsy: 0 - normal Left arm: 1 - drift Right arm; 0 - no drift Left le - no drift Right le - no drift Limb ataxia: 0 - absent Sensation: 0 - normal Best language: 0 - no aphasia Dysarthria: 0 - normal articulation Extinction and inattention: 0 - no neglect Stroke Scale: 1 Laboratory & Radiological Imaging (if done): Labs Reviewed COMPREHENSIVE METABOLIC PANEL - Abnormal; Notable for the following components: Result Value Glucose 146 (*) BUN 26 (*) BUN/Creatinine Ratio 27.7 (*) All other components within normal limits Narrative: [facility] has implemented the eGFR calculation approach that does not have a coefficient for race that conforms to the NKF-ASN Task Force Recommendations. APTT - Abnormal; Notable for the following components: APTT 21 (*) All other components within normal limits Narrative: Therapeutic range for APTT's is 68 - 104 seconds POC VENOUS BLOOD GAS PANEL-PULM - RALS - Abnormal; Notable for the following components: Base Excess, Tom 3.2 (*) HCO3, Tom 29.1 (*) Carboxyhemoglobin 2.0 (*) Glucose 148 (*) All other components within normal limits LIPASE - Normal PT/INR - Normal Narrative: During the induction phase of oral anticoagulation, the INR may not reflect the anticoagulation status of the patient. Therapeutic ranges for INR's are: Most clinical situations: INR 2.0-3.0 Mechanical Prosthetic Valve: INR 2.5-3.5 Critical: INR >5.0 CBC AND DIFFERENTIAL Narrative: The following orders were created for panel order CBC and Differential. Procedure Abnormality Status --------- ------ CBC Auto Differential[[id number]] Final result Please view results for these tests on the individual orders. TROPONIN X 2 (NOW AND REPEAT IN 2 HOURS) PT/INR AND APTT Narrative: The following orders were created for panel order PT/INR and APTT. Procedure Abnormality Status --------- ------ PT/INR[[id number]] Normal Final result APTT[[id number]] Abnormal Final result Please view results for these tests on the individual orders. OBTAIN VENOUS BLOOD GASES AND PERFORM TROPONIN X 2 (NOW AND REPEAT IN 2 HOURS) MAGNESIUM LEVEL PHOSPHORUS CALCIUM, IONIZED HEMOGLOBIN A1C LIPID PANEL POC GLUCOSE TYPE AND SCREEN ANTIBODY IDENTIFICATION-D CBC WITH AUTO DIFFERENTIAL ABORH VERIFICATION CT Angiogram Head Neck (STROKE) Final Result 1. 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 2. Focal severe stenosis at the origin of the non dominant right vertebral artery. 3. Short segment of irregularity and a beaded appearance in the left cervical internal carotid artery, suspicious for fibromuscular dysplasia. 4. No acute findings on noncontrast head CT. MRI is a more sensitive examination to evaluate for acute infarction. 5. Mild generalized parenchymal volume loss and findings that raise the possibility for a component of superimposed communicating hydrocephalus. Workstation ID: [id number] CT Head Without Contrast (Stroke) Preliminary Result 1. No acute findings. No hemorrhage. No masses. 2. Moderate brain atrophy. Moderate chronic microvascular changes. [facility]/pji Workstation ID: [id number] XR Chest 1 View (Results Pending) MR Brain Without Contrast (Results Pending) Ultrasound doppler carotid (Results Pending) Echocardiogram complete without bubble (TTE) (Results Pending) Procedures: Critical Care Performed by: iTmbo Holguin MD Authorized by: Timbo Holguin MD Total critical care time: 36 minutes Critical care was time spent personally by me on the following activities: discussions with consultants, examination of patient and pulse oximetry. 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 After reviewing the items above, I did look at previous medical documentation. Social conditions impacting the patients care are: Syncope Some Differential Diagnoses Include: Intracranial bleed intracranial mass subdural epidural Labs/Imaging: No intracranial bleed. No LVO ED course: Patient presents emergency department for evaluation of headache symptoms and dizziness symptoms following syncopal event On assessment, patient with mildly dry mucous membranes with appreciable photophobia. Discussed case with Dr. Gunter--Per discussion with Dr. Gunter patient and family and after discussion of risk-benefit of medication, patient and family in agreement with trialing TNK. CTA without any appreciable LVO. Patient not thrombectomy candidate per discussion with Dr. Gunter. Will admit for further management to the ICU Shared decision making used: yes Code Status: Full . MIPS Measure #187: Thrombolytic Therapy Plan for Thrombolytics: LKW within 3.5 hrs... Thrombolytic Given?: Thrombolytic was given within 4.5 hrs of LKW Clinical Impression: 1. Dizziness 2. Syncope, unspecified syncope type 3. Headache 4. Photophobia 5. Cerebrovascular accident (CVA), unspecified mechanism (HCC) Disposition: ED Disposition ED Disposition Hospitalize Condition -- Comment Reason for inpatient over two midnights: Post TNK, stroke workup Timbo Holguin MD, MD ED Attending Physician [facility] EMERGENCY DEPARTMENT [1] Social History Socioeconomic History Marital status: [2] Allergies Allergen Reactions Demerol [Meperidine] Rash Timbo Holguin MD 05/28/25 7370 Pt vomited x1 in ct. Pt c/o severe nausea and dizzziness Stroke cart placed in room PT to CT Dr. Ezio lopes for pit stop upon pt arrival Pt severe pain to left forehead/ left temporal area [employer] with onset of dizziness, left arm drift This [facility] called 123 for Level one stroke alert to room 7, ETA 8 minutes. documented in this encounter [facility] 05-28-2025 History and physical note [facility] [place] [facility]YSICAL -- [facility] Patient Name: Lidia Ortiz : 1945 MR #: [id number] Admit Date: 05/28/2025 Physicians: Ferdinand Montague DO (Family); No ref. provider found (Referring) Lidia Ortiz is a 80 y.o. female patient of Ferdinand Montague DO with history of former tobacco use disorder, non-small cell lung cancer of the right lung s/p lobectomy 3 years ago, dyslipidemia, hypertension, type 2 diabetes mellitus presented to [facility] on 05/28/2025 with dizziness and headache with LOC. Stroke code level 1 was called in the ED.. Acute left-sided weakness Dizziness Vertigo CVA rule out S/p TNK in the ED CT head without contrast did not show any acute findings or hemorrhage or mass CTA head and neck severe stenosis of P2 segment of the right posterior cerebral artery, stenosis of the origin of the right vertebral artery, no LVO Admit to the ICU Neurocheck every hour Stat CT if any neurological change Blood pressure goal less than 180/100 in the first 24 hours Aspirin after 24 hours Follow-up MRI Follow-up echo Neurology consult Continue statin, will increase to rosuvastatin to 10 instead of Follow-up repeated CT as per recommendation by the neurologist Fall precaution Replete electrolyte as needed keep k>4, Phos > 3, Mag >2 Follow-up lipid panel A1c Hypertension Dyslipidemia Home medication losartan and metoprolol, will hold for now Normotensive on admission Goal of blood pressure less than 180/110 Type 2 diabetes mellitus Last A1c 2 years ago 6.4 A1c Home medication metformin BG on admission 148 Keep BG between 140 and 180 Non-small cell lung cancer S/p lobectomy 3 years ago Continue respiratory support Pain control Residence prior to admission: house or apartment Was patient transferred from outlying hospital or ED no Quality Measures DVT Prophylaxis: SCDs Christiansen Catheter: absent Medication Reconciliation: Verified Admitted with these risk variables:None. Please see assessment and plan for further details. Estimated Date of Discharge less than 2 midnights Code Status Full Code; code status verified on 05/28/2025 with patient (capacity intact) Chief Complaint dizziness and headache History of Present Illness Lidia Ortiz is a 80 y.o. female patient of Ferdinand Montague DO with history of former tobacco use disorder, non-small cell lung cancer of the right lung s/p lobectomy 3 years ago, dyslipidemia, hypertension, type 2 diabetes mellitus presented to [facility] on 05/28/2025 with dizziness and headache with LOC. Stroke code level 1 was called in the ED.. Patient describes headache like room spinning around, did not improve with Tylenol. Last well-known at 12:15 PM after she completed a phone call to her family member. She was in the kitchen preparing a meal when she developed sudden onset of frontal headache and followed by resolution of the headache she is not experiencing room spinning, vertigo, nausea which was progressively got worse. Then she went to her describe her current symptoms, went back to the kitchen but she could not as she has shaky legs and then collapsed at but her caught her. Did not lose conscious but was not awake either. She was able to answer questions and sometimes mumble some words. She was not able to open her eyes due to severe dizziness. No seizure activity reported by the and patient did not hit her head. Brought to the ED and the ER physicians suspected left-sided weakness and called an alert stroke. After CT scan patient had multiple pelayo where she would repeatedly fall asleep she kept her eyes closed due to severe dizziness, no gaze appreciated or nystagmus. Also there is no facial droop or slurred speech or aphasia but she still describing that she has difficulty talking. Objectively, there is bilateral symmetrical leg drift, BG 148, BP 131/65. Patient found to be a candidate for TNK by the teleneurologist. At bedside evaluation, patient was unable to open her eyes due to severe dizziness. On exam mild left upper and left lower extremity weakness 4.5/5, sensation intact. Denied any current chest pain abdominal pain diarrhea or constipation fever chills or recent travel Past Medical History Past Medical History: Diagnosis Date Cancer (HCC) Hypertension Past Surgical History Past Surgical History: Procedure Laterality Date LUNG REMOVAL, PARTIAL Right Family History No family history on file. Social History Tobacco Use History[1] Social History Substance and Sexual Activity Alcohol Use Not on file Social History Substance and Sexual Activity Drug Use Not on file Allergy Information I have reviewed the patient's allergies. Demerol [meperidine] Home Medications Home medications were reviewed. Review Of Systems All relevant systems have been reviewed and are negative except as noted in HPI or below Physical Examination BP 126/66 Pulse 65 Temp 97.7 F (36.5 C) (Oral) Resp 14 Wt 76.6 kg (168 lb 12.8 oz) SpO2 96% General Appearance: alert; well appearing; in no acute distress HEENT: Head- normocephalic; Eyes- EOMI, sclera anicteric; Throat- mucous membranes moist Cardiovascular: regular rate and rhythm; normal S1, S2; no murmurs, rubs, clicks or gallops; peripheral edema absent Respiratory: lungs clear to auscultation; without wheezes, rales or rhonchi; on room air Abdomen: soft, non-tender, non-distended Neurological: oriented x 3; normal speech; muscle strength in the left upper and left lower extremity 4.5 out of 5, intact sensation, intact reflex Musculoskeletal: no significant deformity or tenderness to palpation Skin: normal coloration Psych: normal mood and affect I spent 50 minutes providing critical care services independent of procedures and other care providers. My time managing this critically ill patient included review of interval history, laboratories, radiology and consultation reports; performing a physical examination; discussing patient with the care team and managing life sustaining therapies to prevent imminent clinical deterioration. [1] Social History Tobacco Use Smoking Status Not on file Smokeless Tobacco Not on file [facility] 05-28-2025 Note [facility] HISTORY AND PHYS ICAL -- [facility] Patient Name: Lidia Ortiz : 1945 MR #: [id number] Admit Date: 05/28/2025 Physicians: Ferdinand Montague DO (Family); No ref. provider found (Referring) Lidia Ortiz is a 80 y.o. female patient of Ferdinand Montague DO with history of former tobacco use disorder, non-small cell lung cancer of the right lung s/p lobectomy 3 years ago, dyslipidemia, hypertension, type 2 diabetes mellitus presented to [facility] on 05/28/2025 with dizziness and headache with LOC. Stroke code level 1 was called in the ED.. Acute left-sided weakness Dizziness Vertigo CVA rule out S/p TNK in the ED CT head without contrast did not show any acute findings or hemorrhage or mass CTA head and neck severe stenosis of P2 segment of the right posterior cerebral artery, stenosis of the origin of the right vertebral artery, no LVO Admit to the ICU Neurocheck every hour Stat CT if any neurological change Blood pressure goal less than 180/100 in the first 24 hours Aspirin after 24 hours Follow-up MRI Follow-up echo Neurology consult Continue statin, will increase to rosuvastatin to 10 instead of Follow-up repeated CT as per recommendation by the neurologist Fall precaution Replete electrolyte as needed keep k>4, Phos > 3, Mag >2 Follow-up lipid panel A1c Hypertension Dyslipidemia Home medication losartan and metoprolol, will hold for now Normotensive on admission Goal of blood pressure less than 180/110 Type 2 diabetes mellitus Last A1c 2 years ago 6.4 A1c Home medication metformin BG on admission 148 Keep BG between 140 and 180 Non-small cell lung cancer S/p lobectomy 3 years ago Continue respiratory support Pain control Residence prior to admission: house or apartment Was patient transferred from outlying hospital or ED no Quality Measures DVT Prophylaxis: SCDs Christiansen Catheter: absent Medication Reconciliation: Verified Admitted with these risk variables:None. Please see assessment and plan for further details. Estimated Date of Discharge less than 2 midnights Code Status Full Code; code status verified on 05/28/2025 with patient (capacity intact) Chief Complaint dizziness and headache History of Present Illness Lidia Ortiz is a 80 y.o. female [facility] with history of former tobacco use disorder, non-small cell lung cancer of the right lung s/p lobectomy 3 years ago, dyslipidemia, hypertension, type 2 diabetes mellitus presented to [facility] on 05/28/2025 with dizziness and headache with LOC. Stroke code level 1 was called in the ED.. Patient describes headache like room spinning around, did not improve with Tylenol. Last well-known at 12:15 PM after she completed a phone call to her family member. She was in the kitchen preparing a meal when she developed sudden onset of frontal headache and followed by resolution of the headache she is not experiencing room spinning, vertigo, nausea which was progressively got worse. Then she went to her husbanddescribe her current symptoms, went back to the kitchen but she could notas she has shaky legs and then collapsed at but her caught her. Did not lose conscious but was not awake either. She was able to answer questions and sometimes mumble some words. She was not able to open her eyes due to severe dizziness. No seizure activity reported by the and patient did not hit her head. Brought to the ED and the ER physicians suspected left-sided weakness and called an alert stroke. After CT scan patient had multiple pelayo where she would repeatedly fall asleep she kept her eyes closed due to severe dizziness, no gaze appreciated or nystagmus. Also there is no facial droop or slurred speech or aphasia but she still describing that she has difficulty talking. Objectively, there is bilateral symmetrical leg drift, BG 148, BP 131/65. Patient found to be a candidate for TNK by the teleneurologist. At bedside evaluation, patient was unable to open her eyes due to severe dizziness. On exam mild left upper and left lower extremity weakness 4.5/5, sensation intact. Denied any current chest pain abdominal pain diarrhea or constipation fever chills or recent travel Past Medical History Past Medical History: Diagnosis Date Cancer (HCC) Hypertension Past Surgical History Past Surgical History: Procedure Laterality Date LUNG REMOVAL, PARTIAL Right Family History No family history on file. Social History Tobacco Use History[1] Social History Substance and Sexual Activity Alcohol Use Not on file Social History Substance and Sexual Activity Drug Use Not on file Allergy Information I have reviewed the patient's allergies. Demerol [meperidine] Home Medications Home medications were reviewed. Review Of Systems All relevant systems have been reviewed and are negative except as note (more content not included)... [facility] 05-28-2025 History and physical note [facility] [place] [facility] -- [facility] Patient Name: Lidia Ortiz : 1945 MR #: [id number] Admit Date: 05/28/2025 Physicians: Ferdinand Montague DO (Family); No ref. provider found (Referring) Lidia Ortiz is a 80 y.o. female patient of Ferdinand Montague DO with history of former tobacco use disorder, non-small cell lung cancer of the right lung s/p lobectomy 3 years ago, dyslipidemia, hypertension, type 2 diabetes mellitus presented to [facility] on 05/28/2025 with dizziness and headache with LOC. Stroke code level 1 was called in the ED.. Acute left-sided weakness Dizziness Vertigo CVA rule out S/p TNK in the ED CT head without contrast did not show any acute findings or hemorrhage or mass CTA head and neck severe stenosis of P2 segment of the right posterior cerebral artery, stenosis of the origin of the right vertebral artery, no LVO Admit to the ICU Neurocheck every hour Stat CT if any neurological change Blood pressure goal less than 180/100 in the first 24 hours Aspirin after 24 hours Follow-up MRI Follow-up echo Neurology consult Continue statin, will increase to rosuvastatin to 10 instead of Follow-up repeated CT as per recommendation by the neurologist Fall precaution Replete electrolyte as needed keep k>4, Phos > 3, Mag >2 Follow-up lipid panel A1c Hypertension Dyslipidemia Home medication losartan and metoprolol, will hold for now Normotensive on admission Goal of blood pressure less than 180/110 Type 2 diabetes mellitus Last A1c 2 years ago 6.4 A1c Home medication metformin BG on admission 148 Keep BG between 140 and 180 Non-small cell lung cancer S/p lobectomy 3 years ago Continue respiratory support Pain control Residence prior to admission: house or apartment [facility] Quality Measures DVT Prophylaxis: SCDs Christiansen Catheter: absent Medication Reconciliation: Verified Admitted with these risk variables:None. Please see assessment and plan for further details. Estimated Date of Discharge less than 2 midnights Code Status Full Code; code status verified on 05/28/2025 with patient (capacity intact) Chief Complaint dizziness and headache History of Present Illness Lidia Ortiz is a 80 y.o. female patient of Ferdinand Montague DO with history of former tobacco use disorder, non-small cell lung cancer of the right lung s/p lobectomy 3 years ago, dyslipidemia, hypertension, type 2 diabetes mellitus presented to [facility] on 05/28/2025 with dizziness and headache with LOC. Stroke code level 1 was called in the ED.. Patient describes headache like room spinning around, did not improve with Tylenol. Last well-known at 12:15 PM after she completed a phone call to her family member. She was in the kitchen preparing a meal when she developed sudden onset of frontal headache and followed by resolution of the headache she is not experiencing room spinning, vertigo, nausea which was progressively got worse. Then she went to her describe her current symptoms, went back to the kitchen but she could not as she has shaky legs and then collapsed at but her caught her. Did not lose conscious but was not awake either. She was able to answer questions and sometimes mumble some words. She was not able to open her eyes due to severe dizziness. No seizure activity reported by the and patient did not hit her head. Brought to the ED and the ER physicians suspected left-sided weakness and called an alert stroke. After CT scan patient had multiple pelayo where she would repeatedly fall asleep she kept her eyes closed due to severe dizziness, no gaze appreciated or nystagmus. Also there is no facial droop or slurred speech or aphasia but she still describing that she has difficulty talking. Objectively, there is bilateral symmetrical leg drift, BG 148, BP 131/65. Patient found to be a candidate for TNK by the teleneurologist. At bedside evaluation, patient was unable to open her eyes due to severe dizziness. On exam mild left upper and left lower extremity weakness 4.5/5, sensation intact. Denied any current chest pain abdominal pain diarrhea or constipation fever chills or recent travel Past Medical History Past Medical History: Diagnosis Date Cancer (HCC) Hypertension Past Surgical History Past Surgical History: Procedure Laterality Date LUNG REMOVAL, PARTIAL Right Family History No family history on file. Social History Tobacco Use History[1] Social History Substance and Sexual Activity Alcohol Use Not on file Social History Substance and Sexual Activity Drug Use Not on file Allergy Information I have reviewed the patient's allergies. Demerol [meperidine] Home Medications Home medications were reviewed. Review Of Systems All relevant systems have been reviewed and are negative except as noted in HPI or below Physical Examination BP 126/66 Pulse 65 Temp 97.7 F (36.5 C) (Oral) Resp 14 Wt 76.6 kg (168 lb 12.8 oz) SpO2 96% General Appearance: alert; well appearing; in no acute distress HEENT: Head- normocephalic; Eyes- EOMI, sclera anicteric; Throat- mucous membranes moist Cardiovascular: regular rate and rhythm; normal S1, S2; no murmurs, rubs, clicks or gallops; peripheral edema absent Respiratory: lungs clear to auscultation; without wheezes, rales or rhonchi; on room air Abdomen: soft, non-tender, non-distended Neurological: oriented x 3; normal speech; muscle strength in the left upper and left lower extremity 4.5 out of 5, intact sensation, intact reflex Musculoskeletal: no significant deformity or tenderness to palpation Skin: normal coloration Psych: normal mood and affect I spent 50 minutes providing critical care services independent of procedures and other care providers. My time managing this critically ill patient included review of interval history, laboratories, radiology and consultation reports; performing a physical examination; discussing patient with the care team and managing life sustaining therapies to prevent imminent clinical deterioration. [1] Social History Tobacco Use Smoking Status Not on file Smokeless Tobacco Not on file documented in this encounter [facility] 05-28-2025 Progress note Formatting of t his note might be different from the original. Stroke Network Virtual Neurology Assessement Note History of Present Illness: I was asked to preform a stroke alert by [facility]. This provider had difficulty obtaining a clear timeline of events due to patient's somnolence. Eventually was able to get a hold of patient's via her son. 80-year-old female with a past medical history of former tobacco abuse, non-small cell lung cancer of the right lung status post lobectomy approximately 3 to 4 years ago without recurrence, hyperlipidemia, hypertension, type 2 diabetes on daily aspirin who was last seen normal at 12:15 PM after she completed a phone call to her family member. She was in the kitchen preparing a meal when she developed a sudden onset of frontal headache quickly followed by resolution of the headache. She then experienced sudden onset of room spinning vertigo associated nausea that progressively got worse. She then ambulated to her and described her current symptoms. She then walked to the kitchen unaccompanied, the followed her. She was able to ambulate with shaky legs. She then had a slow collapse of her legs for which her caught her. Following this the patient did not lose consciousness but was not awake either. At times she would answer questions or correctly while other times she would mumble. Eyes remain closed due to severe dizziness. There is no overt unilateral weakness that the saw. No seizure activity. She did not strike her head. EMS was called. EMS felt that there was a facial droop and left arm weakness. She was then brought to the ED. ED attending felt that there was also left-sided weakness prompting a stroke alert. After returning from CT scanner patient had multiple periods where she would repeatedly fall asleep. She kept her eyes closed due to severe dizziness. When she would open her eyes there was no disconjugate gaze and no obvious nystagmus seen virtually. There is no obvious facial droop or slurred speech. No aphasia. Patient does describe having difficulty talking but she cannot elaborate on this. She feels globally weak. Objective testing shows no unilateral facial droop, unilateral arm drift. There is bilateral symmetric leg drift. Intact sensation. Fingerstick glucose 148. Blood pressure was 131/65 mmHg. Patient states that with her vertigo and symptoms now she would not be able to ambulate or do her normal activities. In order to obtain this timeline (for the patient was unclear about certain details) I spoke to the patient's son, daughter, and eventually on the phone. EXAM: Temp: [97.7 F (36.5 C)] 97.7 F (36.5 C) Heart Rate: [51-57] 52 Resp: [14] 14 BP: (131-149)/(65-135) 145/70 NIH Stroke Scale Interval: Baseline Time: 2:45 PM Person Administering Scale: eDxter Gunter MD NIH Stroke Scale Level of Consciousness (1a.): Not alert, requires repeated stimulation to attend, or is obtunded and requires strong or painful stimulation to make movements (not stereotyped) (Keeps falling asleep during evaluation.) LOC Questions (1b.): Answers both questions correctly LOC Commands (1c.): Performs both tasks correctly Best Gaze (2.): Normal Visual (3.): No visual loss Facial Palsy (4.): Normal symmetrical movements Motor Arm, Left (5a.): No drift Motor Arm, Right (5b.): No drift Motor Leg, Left (6a.): Some effort against gravity Motor Leg, Right (6b.): Some effort against gravity Limb Ataxia (7.): Absent Sensory (8.): Normal, no sensory loss Best Language (9.): No aphasia Dysarthria (10.): Normal Extinction and Inattention (11.) (Formerly Neglect): No abnormality Total: 6 Other examination findings: Imaging Findings (Reviewed by me preliminarily, official read pending): CT head (05/28/2025): No acute intracranial abnormalities; ASPECTS 10 Impression: Etiology is unclear. Acute onset of room spinning vertigo followed by reported left-sided weakness and trouble speaking raises significant concerns for posterior circulation infarction. Stroke mimic is also possible including atypical vestibular disorder resulting in global weakness, headache variant, metabolic disorder, or other. There are no contraindications for thrombolysis. After review of the patient's history, imaging, labs, the patient was deemed an excellent IV thrombolysis candidate. The risks/benefits of the medication were reviewed, including the 4-6% risks of symptomatic ICH. The patient and family ( and son) wished to proceed with thrombolysis. I personally placed the order. Plan: ED: STAT TNK CTA head/neck in ED following TNK Permissive HTN (don't treat BP unless > 180/100 mmHg). No antiplatelet Metabolic/infectious evaluation as per ED. Hospital: Disposition: ICU admission for post tPA cares Neurology consult MR brain w/ and w/o contrast at 24 hours Hold on all antiplatelet, subcu heparin, or anticoagulants until neurology Differ need for echo to inpatient team Permissive HTN (don't treat BP unless > 180/100 mmHg) LDL, A1c PT/OT/ST-given her vertigo, difficulty walking/collapse patient will remain on strict bedrest. Dexter Gunter MD Cerebrovascular Neurology [facility] Work Phone: 05-28-[address] gunter at bedside [facility] tele med speaking to pt spouse and son [facility] 05-28-2025 Emergency department Note Son at bedside [facility] 05-28-2025 Physician Emergency department Note Associated Order(s): Critical Care; ECG 12 Lead (Now) [facility] EMERGENCY DEPARTMENT ATTENDING NOTE: NAME: Lidia Ortiz CSN: [id number] 80 y.o. PCP: Ferdinand Montague DO History: Chief Complaint: No chief complaint on file. HPI: 80-year-old female past medical history of hypertension hyperlipidemia diabetes presents to the emergency department as a level 1 stroke alert following dizziness symptoms and headache symptoms with resultant loss of consciousness. Patient describes headache symptoms with room spinning sensation. Patient with a lams of 2. No specific alleviating or aggravating factors. Patient denies any other symptoms at this time. Patient actively vomiting PMHx: Past Medical History: Diagnosis Date Cancer (HCC) Hypertension PMSx: Past Surgical History: Procedure Laterality Date LUNG REMOVAL, PARTIAL Right FAM. Hx: No family history on file. SOC. Hx: Social History [1] MEDs: Previous Medications Medication Sig losartan (COZAAR) 100 MG tablet Take 1 (one) tablet (100 mg total) by mouth every evening . metFORMIN (GLUCOPHAGE) 500 MG tablet Take 1 (one) tablet (500 mg total) by mouth every evening . metFORMIN (GLUCOPHAGE-XR) 500 MG 24 hr tablet Take 1 (one) tablet (500 mg total) by mouth daily with breakfast . metoprolol succinate (TOPROL-XL) 25 MG 24 hr tablet Take 1 (one) tablet (25 mg total) by mouth every evening . pioglitazone (ACTOS) 15 MG tablet Take 1 (one) tablet (15 mg total) by mouth daily . rosuvastatin 5 mg CpSP Take 1 (one) capsule (5 mg total) by mouth every other day . ALL: Allergies[2] Physical Exam: Patient Vitals for the past 24 hrs: BP Temp Temp src Pulse Resp SpO2 Weight 05/28/25 1720 134/69 -- -- 66 -- 96 % -- 05/28/25 1715 130/60 -- -- 66 -- 96 % -- 05/28/25 1710 138/70 -- -- 66 -- 95 % -- 05/28/25 1706 129/64 -- -- 66 -- 96 % -- 05/28/25 1645 (!) 115/57 -- -- 65 -- 96 % -- 05/28/25 1625 126/66 -- -- 65 14 96 % -- 05/28/25 1610 (!) 140/65 -- -- 63 15 99 % -- 05/28/25 1608 -- -- -- 65 -- 95 % -- 05/28/25 1607 -- -- -- 63 -- 96 % -- 05/28/25 1606 (!) 144/66 -- -- 63 -- 97 % -- 05/28/25 1603 (!) 169/80 -- -- 64 14 96 % -- 05/28/25 1600 (!) 169/80 -- -- 62 14 95 % -- 05/28/25 1555 (!) 186/89 -- -- 60 14 95 % -- 05/28/25 1550 (!) 178/80 -- -- (!) 59 14 96 % -- 05/28/25 1545 (!) 173/80 -- -- 60 15 93 % -- 05/28/25 1540 (!) 179/79 -- -- 62 -- 95 % -- 05/28/25 1535 (!) 181/81 -- -- 66 -- 91 % -- 05/28/25 1530 -- -- -- 73 -- 97 % -- 05/28/25 1520 (!) 175/83 -- -- (!) 57 -- 92 % -- 05/28/25 1515 (!) 169/76 -- -- 60 -- 100 % -- 05/28/25 1512 -- -- -- (!) 56 14 (!) 5 % -- 05/28/25 1510 (!) 164/74 -- -- (!) 56 -- 97 % -- 05/28/25 1505 (!) 163/78 -- -- (!) 58 -- 93 % -- 05/28/25 1500 (!) 155/75 -- -- (!) 57 -- 93 % -- 05/28/25 1456 126/83 -- -- (!) 56 -- 94 % -- 05/28/25 1446 (!) 149/66 -- -- (!) 58 -- 95 % -- 05/28/25 1440 (!) 155/71 -- -- (!) 53 -- 97 % -- 05/28/25 1435 139/69 -- -- -- -- 96 % -- 05/28/25 1431 (!) 145/70 -- -- (!) 52 -- 93 % -- 05/28/25 1430 -- -- -- (!) 54 -- 93 % -- 05/28/25 1426 139/68 -- -- (!) 51 -- 96 % -- 05/28/25 1423 131/65 -- -- (!) 57 -- 93 % -- 05/28/25 1415 (!) 149/135 -- -- (!) 54 -- 93 % -- 05/28/25 1411 136/71 97.7 F (36.5 C) Oral (!) 51 14 95 % 76.6 kg (168 lb 12.8 oz) 05/28/25 1409 139/67 -- -- (!) 51 -- 97 % -- 05/28/25 1400 -- -- -- -- -- 94 % -- Physical Exam Vitals and nursing note reviewed. Constitutional: General: She is awake. HENT: Head: Normocephalic and atraumatic. Right Ear: External ear normal. Left Ear: External ear normal. Nose: Nose normal. Mouth/Throat: Mouth: Mucous membranes are dry. Pharynx: Oropharynx is clear. Eyes: General: Lids are normal. No scleral icterus. Extraocular Movements: Extraocular movements intact. Pupils: Pupils are equal, round, and reactive to light. Cardiovascular: Rate and Rhythm: Normal rate. Pulmonary: Effort: Pulmonary effort is normal. No accessory muscle usage or respiratory distress. Abdominal: Palpations: Abdomen is soft. Skin: General: Skin is warm. Comments: No acute rash visualized on exposed skin Neurological: Mental Status: She is alert. GCS: GCS eye subscore is 4. GCS verbal subscore is 5. GCS motor subscore is 6. Cranial Nerves: No dysarthria or facial asymmetry. Sensory: Sensation is intact. Motor: Motor function is intact. Coordination: Coordination is intact. Comments: GCS of 14. Opens to verbal NIH Scale: LOC: 0 - alert LOC Questions: 0 - answers both correctly LOC Commands: 0 - performs both correctly Best gaze: 0 - normal Vision: 0 - no visual loss Facial Palsy: 0 - normal Left arm: 1 - drift Right arm; 0 - no drift Left le - no drift Right le - no drift Limb ataxia: 0 - absent Sensation: 0 - normal Best language: 0 - no aphasia Dysarthria: 0 - normal articulation Extinction and inattention: 0 - no neglect Stroke Scale: 1 Laboratory & Radiological Imaging (if done): Labs Reviewed COMPREHENSIVE METABOLIC PANEL - Abnormal; Notable for the following components: Result Value Glucose 146 (*) BUN 26 (*) BUN/Creatinine Ratio 27.7 (*) All other components within normal limits Narrative: [facility] has implemented the eGFR calculation approach that does not have a coefficient for race that conforms to the NKF-ASN Task Force Recommendations. APTT - Abnormal; Notable for the following components: APTT 21 (*) All other components within normal limits Narrative: Therapeutic range for APTT's is 68 - 104 seconds POC VENOUS BLOOD GAS PANEL-PULM - RALS - Abnormal; Notable for the following components: Base Excess, Tom 3.2 (*) HCO3, Tom 29.1 (*) Carboxyhemoglobin 2.0 (*) Glucose 148 (*) All other components within normal limits LIPASE - Normal PT/INR - Normal Narrative: During the induction phase of oral anticoagulation, the INR may not reflect the anticoagulation status of the patient. Therapeutic ranges for INR's are: Most clinical situations: INR 2.0-3.0 Mechanical Prosthetic Valve: INR 2.5-3.5 Critical: INR >5.0 CBC AND DIFFERENTIAL Narrative: The following orders were created for panel order CBC and Differential. Procedure Abnormality Status --------- ------ CBC Auto Differential[[id number]] Final result Please view results for these tests on the individual orders. TROPONIN X 2 (NOW AND REPEAT IN 2 HOURS) PT/INR AND APTT Narrative: The following orders were created for panel order PT/INR and APTT. Procedure Abnormality Status --------- ------ PT/INR[[id number]] Normal Final result APTT[[id number]] Abnormal Final result Please view results for these tests on the individual orders. OBTAIN VENOUS BLOOD GASES AND PERFORM TROPONIN X 2 (NOW AND REPEAT IN 2 HOURS) MAGNESIUM LEVEL PHOSPHORUS CALCIUM, IONIZED HEMOGLOBIN A1C LIPID PANEL POC GLUCOSE TYPE AND SCREEN ANTIBODY IDENTIFICATION-D CBC WITH AUTO DIFFERENTIAL ABORH VERIFICATION CT Angiogram Head Neck (STROKE) Final Result 1. 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 2. Focal severe stenosis at the origin of the non dominant right vertebral artery. 3. Short segment of irregularity and a beaded appearance in the left cervical internal carotid artery, suspicious for fibromuscular dysplasia. 4. No acute findings on noncontrast head CT. MRI is a more sensitive examination to evaluate for acute infarction. 5. Mild generalized parenchymal volume loss and findings that raise the possibility for a component of superimposed communicating hydrocephalus. Workstation ID: [id number] CT Head Without Contrast (Stroke) Preliminary Result 1. No acute findings. No hemorrhage. No masses. 2. Moderate brain atrophy. Moderate chronic microvascular changes. DMG/pji Workstation ID: [id number] XR Chest 1 View (Results Pending) MR Brain Without Contrast (Results Pending) Ultrasound doppler carotid (Results Pending) Echocardiogram complete without bubble (TTE) (Results Pending) Procedures: Critical Care Performed by: Timbo Holguin MD Authorized by: Timbo Holguin MD Total critical care time: 36 minutes Critical care was time spent personally by me on the following activities: discussions with consultants, examination of patient and pulse oximetry. 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 After reviewing the items above, I did look at previous medical documentation. Social conditions impacting the patients care are: Syncope Some Differential Diagnoses Include: Intracranial bleed intracranial mass subdural epidural Labs/Imaging: No intracranial bleed. No LVO ED course: Patient presents emergency department for evaluation of headache symptoms and dizziness symptoms following syncopal event On assessment, patient with mildly dry mucous membranes with appreciable photophobia. Discussed case with Dr. Gunter--Per discussion with Dr. Gunter patient and family and after discussion of risk-benefit of medication, patient and family in agreement with trialing TNK. CTA without any appreciable LVO. Patient not thrombectomy candidate per discussion with Dr. Gunter. Will admit for further management to the ICU Shared decision making used: yes Code Status: Full . MIPS Measure #187: Thrombolytic Therapy Plan for Thrombolytics: LKW within 3.5 hrs... Thrombolytic Given?: Thrombolytic was given within 4.5 hrs of LKW Clinical Impression: 1. Dizziness 2. Syncope, unspecified syncope type 3. Headache 4. Photophobia 5. Cerebrovascular accident (CVA), unspecified mechanism (HCC) Disposition: ED Disposition ED Disposition Hospitalize Condition -- Comment Reason for inpatient over two midnights: Post TNK, stroke workup Timbo Holguin MD, MD ED Attending Physician [facility] EMERGENCY DEPARTMENT [1] Social History Socioeconomic History Marital status: [2] Allergies Allergen Reactions Demerol [Meperidine] Rash Timbo Holguin MD 05/28/25 1151 [facility] 05-28-2025 Emergency department Note Pt vomited x1 in ct. Pt c/o severe nausea and dizzziness [facility] 05-28-2025 Emergency department Note Stroke cart placed in room [facility] 05-28-2025 Emergency department Note PT to CT [facility] 05-28-[address] 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 [facility] 11-22-2024 Telephone encounter Note Patient is scheduled [facility] 11-22-2024 Miscellaneous Notes Patient is scheduled Called patient and left a vm to return our call CT chest in about 6 months followed by OV with Dr. Alvarez to review results about [address] scan documented in this encounter [facility] 11-21-2024 Telephone encounter Note Called patient and left a vm to return our call [facility] 11-20-[address] chest in about 6 months followed by OV with Dr. Alvarez to review results about [address] scan [facility] 11-20-2024 History of Present illness Narrative Lidia Ortiz 1945 HPI: Lidia Ortiz is a 79 year old female who presents here today for follow up lung cancer. Per Dr. Alvarez's previous note: H/o type 2 diabetes (metformin), hypertension and hyperlipidemia. She underwent evaluation for a cough which had been persistent for about 3 months. She had no complaints of dyspnea fever or wheezing. A CT of the chest was performed on 01/24/2022. There was a 3.5 x 3.8 x 4.3 cm mass in the right upper lobe. This abutted the right hilar region. There was no demonstrated pleural abnormality. Mediastinum and hilar regions appeared normal otherwise. There were multilevel degenerative changes of thoracic spine with a 1.4 cm area of sclerosis observed in the posterior aspect of the T9 or T12 vertebrae at the level of the pedicle on the right side for which correlation with bone scan was recommended. There was a 1 cm cyst in the medial inferior aspect of the right lobe of the liver. Patient underwent a CT-guided right lung biopsy on 02/06/2022. Pathology: -Non-small cell carcinoma, favor adenocarcinoma consistent with lung primary. Specimen was positive for TTF-1, CK7, CK 8 in rare cells that showed positivity for CK20. Complicated by pneumothorax that required chest tube. She underwent MRI of the brain which demonstrated no evidence of metastatic disease. PET scan with results noted. She also had an MRI of the thoracic spine. Images have been loaded. She underwent CT-guided biopsy of the suspicious lesion in T10 vertebral body on 03/09/2022. Pathology demonstrated fragments of sclerotic bone with bone marrow fibrosis and edema and no evidence of carcinoma. She underwent surgical evaluation at [facility]. Previous therapy: 1) Neoadjuvant carboplatin, pemetrexed and nivolumab. Underwent right VATS, right middle lobectomy, right lower lung wedge resection, mediastinal lymphadenectomy and intercostal nerve block on 06/26/2022. Pathology: A. Lymph node #7, excision: - Three (3) lymph nodes negative for neoplasm. B. Lymph node #10R, excision: - One (1) lymph node negative for neoplasm. C. Lymph node #10R, excision: - One (1) lymph node negative for neoplasm. D. Lymph node #11R, excision: - One (1) lymph node negative for neoplasm. E. Lymph node #11R, excision: - One (1) lymph node negative for neoplasm. F. Lymph node #11R, excision: - One (1) lymph node negative for neoplasm. G. Right lung, middle lobe, lobectomy: - Invasive adenocarcinoma, acinar predominant, 0.5 cm - Non-necrotizing granulomas. H. Right lung, lower lobe, wedge excision: - Patchy subpleural fibrosis with non-necrotizing granulomas, dystrophic calcium and reactive epithelial atypia. - Negative for neoplasm. I. Lymph node #4R, excision: - Three (3) lymph nodes negative for neoplasm. J. Lymph node #2R, excision: - Three (3) lymph nodes negative for neoplasm Interval Hx: Ms. Ortiz presents today for follow up and CT review. She denies new issues. No SOB. CP, no cough. Metformin keeps me regular. Stomach bug recently. Symptoms have since resolved. Stopped lyrica due to brain fog. Side pain has also resolved. No new issues. Appetite and energy level stable. No new aches or pains, lumps or bumps. No bleeding. BP elevated in the office today. She notes that this happens at every doctors visit for many years. Denies symptoms of HTN. ROS: All systems reviewed on 11/20/2024 with pertinent positives and negatives as outlined in the interval history. Past medical history, appointments, medications, allergies reviewed. No changes. EXAM: BP 176/107 Pulse 71 Temp 36.3 C (97.4 F) Wt 73.7 kg (162 lb 8 oz) SpO2 91% BMI 23.80 kg/m APPEARANCE Well appearing, alert, in no acute distress, well-hydrated, well nourished. HEART RRR with normal S1 and S2, no murmurs LUNG clear to auscultation LYMPH NODES No palpable LAD ABDOMEN bowel sounds normoactive, soft, non-tender EXTREMITIES No edema NEURO Awake, alert and oriented x 3, No involuntary motions. SKIN Skin color, texture, turgor normal, no suspicious rashes or lesions I have performed the physical exam today (11/20/2024) and have edited the note to correlate with current findings. RADIOLOGY: CT chest 07/29/24: IMPRESSION: Status post right middle lobectomy and wedge resection in the right lower lobe. Similar scarring and suture line in the right lung with similar nodularity. Stable nodular density along the right heart border. Interval resolution of some of the previously mentioned new nodules in the right lower lobe. A few new nodular densities seen in the anterior right lower lobe. Continued follow-up is suggested. No progressive lymphadenopathy. T10 vertebral body sclerotic lesion. Left kidney stones. ASSESSMENT/PLAN: 1. Encounter for follow-up surveillance of lung cancer - ICD9: V67.9, V10.11, ICD10: Z08, Z85.118 (primary diagnosis) 2. Malignant neoplasm of unspecified part of unspecified bronchus or lung (HCC) - ICD9: 162.9, ICD10: C34.90 cT3 cN0 M0 clinical stage IIB non-small cell lung cancer, adenocarcinoma of the right upper lobe. Per Dr. Alvarez's previous note: Assessment: -The patient is a 79 year-old female with a history of light smoking who quit 50+ years ago. Underwent evaluation for a dry, persistent cough and was found to have a mass in the right upper lobe which on biopsy proved to be adenocarcinoma. -cT3 cN0 M0 clinical stage IIB non-small cell lung cancer, adenocarcinoma of the right upper lobe -EGFR mutation and ALK translocation negative. -PD-L1 negative. -Received neoadjuvant chemo/immunotherapy. -ypT1a pN0 -Adjuvant therapy was not indicated. -I personally reviewed CT images with patient and independently verified and agreed with the radiologist's findings. New cluster (two) very small lung nodules. -Repeat BP 200/100. Plan: -CBC/CMP/TSH/T4/Cortisol CT chest then OV in 2-3 months. A/P - No new concerning findings on exam. Occ. R surgical chest pain has resolved. - remains off of lyrica - Reviewed CT chest/labs with pt. and family friend on the phone. - Encouraged pt. to check BP at home and follow up with PCP re:HTN - CT chest in 6 months, ordered today - Follow up with Dr. Alvarez after above with CBC/CMP - Pt. aware to call office with any questions/concerns. Georgiana Hurley APRN.SPORTS EQUIPMENT SUPERVISOR I spent a total of 25 minutes on the date of the service which included preparing to see the patient, [id number] patient care, completing clinical documentation, obtaining and/or reviewing separately obtained history, and counseling and educating the patient/family/caregiver. Portions of this note including HPI, ROS, impression/plan may have been copied forward as to provide important historical information essential in contributing to medical decision making. Documentation has been reviewed and edited as necessary to support clinical decision making for today's visit and to reflect my own independent evaluation of this patient. documented in this encounter [facility] 11-20-2024 Note HNO ID: [id number] Author: GEORGIANA HURLEY, ? Service: ? Author Type: Nurse Practitioner Type: Progress Notes Filed: 11/21/2024 13:07 Note Text: Lidia Ortiz 1945 HPI: Lidia Ortiz is a 79 year old female who presents here today for follow up lung cancer. Per Dr. Alvarez's previous note: H/o type 2 diabetes (metformin), hypertension and hyperlipidemia. She underwent evaluation for a cough which had been persistent for about 3 months. She had no complaints of dyspnea fever or wheezing. A CT of the chest was performed on 01/24/2022. There was a 3.5 x 3.8 x 4.3 cm mass in the right upper lobe. This abutted the right hilar region. There was no demonstrated pleural abnormality. Mediastinum and hilar regions appeared normal otherwise. There were multilevel degenerative changes of thoracic spine with a 1.4 cm area of sclerosis observed in the posterior aspect of the T9 or T12 vertebrae at the level of the pedicle on the right side for which correlation with bone scan was recommended. There was a 1 cm cyst in the medial inferior aspect of the right lobe of the liver. Patient underwent a CT-guided right lung biopsy on 02/06/2022. Pathology: -Non-small cell carcinoma, favor adenocarcinoma consistent with lung primary. Specimen was positive for TTF-1, CK7, CK 8 in rare cells that showed positivity for CK20. Complicated by pneumothorax that required chest tube. She underwent MRI of the brain which demonstrated no evidence of metastatic disease. PET scan with results noted. She also had an MRI of the thoracic spine. Images have been loaded. She underwent CT-guided biopsy of the suspicious lesion in T10 vertebral body on 03/09/2022. Pathology demonstrated fragments of sclerotic bone with bone marrow fibrosis and edema and no evidence of carcinoma. She underwent surgical evaluation at [facility]. Previous therapy: 1) Neoadjuvant carboplatin, pemetrexed and nivolumab. Underwent right VATS, right middle lobectomy, right lower lung wedge resection, mediastinal lymphadenectomy and intercostal nerve block on 06/26/2022. Pathology: A. Lymph node #7, excision: - Three (3) lymph nodes negative for neoplasm. B. Lymph node #10R, excision: - One (1) lymph node negative for neoplasm. C. Lymph node #10R, excision: - One (1) lymph node negative for neoplasm. D. Lymph node #11R, excision: - One (1) lymph node negative for neoplasm. E. Lymph node #11R, excision: - One (1) lymph node negative for neoplasm. F. Lymph node #11R, excision: - One (1) lymph node negative for neoplasm. G. Right lung, middle lobe, lobectomy: - Invasive adenocarcinoma, acinar predominant, 0.5 cm - Non-necrotizing granulomas. H. Right lung, lower lobe, wedge excision: - Patchy subpleural fibrosis with non-necrotizing granulomas, dystrophic calcium and reactive epithelial atypia. - Negative for neoplasm. I. Lymph node #4R, excision: - Three (3) lymph nodes negative for neoplasm. J. Lymph node #2R, excision: - Three (3) lymph nodes negative for neoplasm Interval Hx: Ms. Ortiz presents today for follow up and CT review. She denies new issues. No SOB. CP, no cough. Metformin keeps me regular. Stomach bug recently. Symptoms have since resolved. Stopped lyrica due to brain fog. Side pain has also resolved. No new issues. Appetite and energy level stable. No new aches or pains, lumps or bumps. No bleeding. BP elevated in the office today. She notes that this happens at every doctors visit for many years. Denies symptoms of HTN. ROS: All systems reviewed on 11/20/2024 with pertinent positives and negatives as outlined in the interval history. Past medical history, appointments, medications, allergies reviewed. No changes. EXAM: BP 176/107 Pulse 71 Temp 36.3 ?C (97.4 ?F) Wt 73.7 kg (162 lb 8 oz) SpO2 91% BMI 23.80 kg/m? APPEARANCE Well appearing, alert, in no acute distress, well-hydrated, well nourished. HEART RRR with normal S1 and S2, no murmurs LUNG clear to auscultation LYMPH NODES No palpable LAD ABDOMEN bowel sounds normoactive, soft, non-tender EXTREMITIES No edema NEURO Awake, alert and oriented x 3, No involuntary motions. SKIN Skin color, texture, turgor normal, no suspicious rashes or lesions I have performed the physical exam today (11/20/2024) and have edited the note to correlate with current findings. RADIOLOGY: CT chest 07/29/24: IMPRESSION: Status post right middle lobectomy and wedge resection in the right lower lobe. Similar scarring and suture line in the right lung with similar nodularity. Stable nodular density along the right heart border. Interval resolution of some of the previously mentioned new nodules in the right lower lobe. A few new nodular densities seen in the anterior right lower lobe. Continued follow-up is suggested. No progressive lymphadenopathy. T10 vertebral body sclerotic lesion. Left kidney stones. ASSES (more content not included)... [facility] 11-04-2024 History of Present illness Narrative Radiology Service Progress Note DATE OF SERVICE: November 04, 2024 TIME: 11:04 AM PATIENT IDENTITY VERIFICATION COMPLETED USING TWO (2) STANDARD IDENTIFIERS: Name and Date of confirmed by patient verbally. FALL SCREENING: Has the patient had 2 falls in the last year or 1 fall with injury or currently using an Ambulatory Assistive Device (Walker, Cane, Wheelchair, Crutches, etc.)? No PATIENT GENDER DATA: Female. status: : No status: NO. PATIENT RELEVANT IMPLANT DATA REVIEWED: Yes PATIENT PRESENTS WITH AN IMPLANTABLE OR ATTACHED PREFORMS LAMINATOR: No ALLERGIES: Reviewed and unchanged CONTRAST ALLERGY: NO. EXAM: CT -CONTRAST INDUCED NEPHROPATHY RISK FACTORS: Patient age > 60 years CREATININE: Creatinine Date Value Ref Range Status 11/04/2024 0.59 0.58 - 0.96 mg/dL Final 07/29/2024 0.70 0.58 - 0.96 mg/dL Final 04/29/2024 0.66 0.58 - 0.96 mg/dL Final Estimated Glomerular Filtration Rate Date Value Ref Range Status 11/04/2024 92 >=60 mL/min/1.73m Final Comment: Estimated Glomerular Filtration Rate (eGFR) is calculated using the 2020 CKD-EPI creatinine equation. This equation utilizes serum creatinine, sex, and age as parameters. The creatinine assay has traceable calibration to isotope dilution-mass spectrometry. Refer to KDIGO guidelines for clinical interpretation. In patients with unstable renal function, e.g. those with acute kidney injury, the eGFR may not accurately reflect actual GFR. eGFR- Date Value Ref Range Status 11/06/2016 >60 Final P.O.C.T. RESULTS: POC done: Yes, See Lab Tab November 04, 2024 TREATMENT: N/A PERIPHERAL IV DATA: Ambulatory: A peripheral IV was started in the Left forearm with a Angio cath: 22 gauge. RADIOLOGY DEPARTMENT: CT; Exam(s) Completed: Chest SIGNATURE: RT Naida(Chele) PATIENT NAME: iLdia Ortiz DATE: November 04, 2024 TIME: 11:04 AM documented in this encounter [facility] 11-04-2024 Note HNO ID: [id number] Author: KORIN EVERETT RT(R) Service: ? Author Type: Oral And Maxillofacial Surgery Type: Progress Notes Filed: 11/04/2024 11:04 Note Text: Radiology Service Progress Note DATE OF SERVICE: November 04, 2024 TIME: 11:04 AM PATIENT IDENTITY VERIFICATION COMPLETED USING TWO (2) STANDARD IDENTIFIERS: Name and Date of confirmed by patient verbally. FALL SCREENING: Has the patient had 2 falls in the last year or 1 fall with injury or currently using an Ambulatory Assistive Device (Walker, Cane, Wheelchair, Crutches, etc.)? No PATIENT GENDER DATA: Female. status: : No status: NO. PATIENT RELEVANT IMPLANT DATA REVIEWED: Yes PATIENT PRESENTS WITH AN IMPLANTABLE OR ATTACHED PREFORMS LAMINATOR: No ALLERGIES: Reviewed and unchanged CONTRAST ALLERGY: NO. EXAM: CT -CONTRAST INDUCED NEPHROPATHY RISK FACTORS: Patient age > 60 years CREATININE: Creatinine Date Value Ref Range Status 11/04/2024 0.59 0.58 - 0.96 mg/dL Final 07/29/2024 0.70 0.58 - 0.96 mg/dL Final 04/29/2024 0.66 0.58 - 0.96 mg/dL Final Estimated Glomerular Filtration Rate Date Value Ref Range Status 11/04/2024 92 >=60 mL/min/1.73m? Final Comment: Estimated Glomerular Filtration Rate (eGFR) is calculated using the 2020 CKD-EPI creatinine equation. This equation utilizes serum creatinine, sex, and age as parameters. The creatinine assay has traceable calibration to isotope dilution-mass spectrometry. Refer to KDIGO guidelines for clinical interpretation. In patients with unstable renal function, e.g. those with acute kidney injury, the eGFR may not accurately reflect actual GFR. eGFR- Date Value Ref Range Status 11/06/2016 >60 Final P.O.C.T. RESULTS: POC done: Yes, See Lab Tab November 04, 2024 TREATMENT: N/A PERIPHERAL IV DATA: Ambulatory: A peripheral IV was started in the Left forearm with a Angio cath: 22 gauge. RADIOLOGY DEPARTMENT: CT; Exam(s) Completed: Chest SIGNATURE: RT Naida(R) PATIENT NAME: Lidia Ortiz DATE: November 04, 2024 TIME: 11:04 AM [facility] 10-27-2024 History of Present illness Narrative [facility] DME ISSUE NOTE Patient identified by name and date: Yes Subjective: Lidia Ortiz is a 79 year old female seen today for fitting and worm picker of custom foot orthotics. Equipment Owned: none DME Delivery: Pt was educated on wear schedule and care of custom foot orthotics. Pt was educated on the option of having orthotics refurbished as needed in the future as long as shell is performing it's intended function well. Pt was educated on approximate cost of refurbishing orthotics and an approximate time frame when this might be necessary. Pt was urged to follow the wear schedule and to call with any questions or concerns. Pt was instructed to start with wearing orthotics one hour the first day and then to add one hour of wear time per day until realtime reporter wear is achieved. Pt was educated on how to remove insoles from shoes and then place orthotics in shoes. The fit of orthotics was assessed with pt standing, with and without shoes. The comfort of orthotics was assessed with pt standing and walking with orthotics in shoes. Pt denied any rubbing or pinching and felt that fit of custom orthotics was correct. Contact information for this therapist was provided to patient. Custom biomechanical foot orthotics with serial number: [id number] were issued to patient and proof of receipt form signed by pt and therapist. All specifications for custom foot orthotics can be found in orthotic evaluation visit note. Planned Interventions: Follow up as needed for brace fitting/issues. Billing:[facility]: Orthotics Management and Training ([id number]): 1:1 time: 20 minutes (1 unit: 8-22 mins) Equipment: [id number] x2 pair of custom foot orthotics Total time: 20 minutes Kleber Willingham PT documented in this encounter [facility] 10-27-2024 Note HNO ID: [id number] Author: KLEBER WILLINGHAM PT Service: ? Author Type: Physical Therapist Type: Progress Notes Filed: 10/27/2024 15:37 Note Text: [facility] DME ISSUE NOTE Patient identified by name and date: Yes Subjective: Lidia Ortiz is a 79 year old female seen today for fitting and worm picker of custom foot orthotics. Equipment Owned: none DME Delivery: Pt was educated on wear schedule and care of custom foot orthotics. Pt was educated on the option of having orthotics refurbished as needed in the future as long as shell is performing it's intended function well. Pt was educated on approximate cost of refurbishing orthotics and an approximate time frame when this might be necessary. Pt was urged to follow the wear schedule and to call with any questions or concerns. Pt was instructed to start with wearing orthotics one hour the first day and then to add one hour of wear time per day until realtime reporter wear is achieved. Pt was educated on how to remove insoles from shoes and then place orthotics in shoes. The fit of orthotics was assessed with pt standing, with and without shoes. The comfort of orthotics was assessed with pt standing and walking with orthotics in shoes. Pt denied any rubbing or pinching and felt that fit of custom orthotics was correct. Contact information for this therapist was provided to patient. Custom biomechanical foot orthotics with serial number: [id number] were issued to patient and proof of receipt form signed by pt and therapist. All specifications for custom foot orthotics can be found in orthotic evaluation visit note. Planned Interventions: Follow up as needed for brace fitting/issues. Billing:[facility]: Orthotics Management and Training ([id number]): 1:1 time: 20 minutes (1 unit: 8-22 mins) Equipment: [id number] x2 pair of custom foot orthotics Total time: 20 minutes Kleber Willingham PT [facility] 09-29-2024 Note HNO ID: [id number] Author: KLEBER WILLINGHAM PT Service: ? Author Type: Physical Therapist Type: Progress Notes Filed: 09/29/2024 14:53 Note Text: Episode Visit Count: 1 Therapist That Will Accept/Oversee The Plan Of Care: Kleber Willingham PT Start of Care Date: 09/29/24 Onset Date: 09/29/21 (chronic pain that flared up 3 years ago) Plan of Care Certification Date: 09/29/24 Next Certification Due Date: 11/10/24 Patient Identified by Name and Date of : Yes [facility]ATION AND SPORTS THERAPY PHYSICAL THERAPY EVALUATION PLAN OF CARE: Assessment: Lidia Ortiz presents with chief complaint of pain in B feet that interferes with walking (exercise) . The patient presents with impairments in ADL's, balance, gait, independence in exercise, overall function, and symptom management. PROMIS? (Patient-Reported Outcomes Measurement Information System) scores were reviewed and identified as within normal limits. Prognosis for therapy is Excellent due to: current objective clinical presentation, good overall health status, positive past response to therapy, within-session changes, good support system/ coping skills. The patient will benefit from skilled therapy services to meet the goals established for this plan of care as noted below. Goals for Episode of Care: established 09/29/24 Pt will be educated on proper wear schedule and care of custom biomechanical foot orthotics Pt will be provided with custom biomechanical B foot orthotics that improve foot and ankle biomechanics as intended with proper fit and function. Patient Goals: decrease pain and stay active Time Frame for Goals and Treatment : 11/10/24 Planned Interventions, Frequency, and Duration: Current Frequency: 1 visit Duration: 1 visit Total Number of Visits Planned: 2 (1 evaluation visit and 1 visit for fitting and worm picker) Planned Treatment Interventions: Orthosis / DME, Patient/Family/Caregiver Education, Self-shelter management ([id number]) PLAN FOR NEXT VISIT: Fitting and worm picker of custom foot orthotics Patient demonstrates good understanding of plan of care and treatment. The above goals and plan of care were discussed and agreed upon by patient/family. SUBJECTIVE: Pt reports intermittent pain in B arches and midfeet that is aggravated by WBing activity. She reports feeling better when she warms up. She reports that OTC inserts help some but pain persists with walking for exercise. She locates pain in arch and mid foot, including the dorsum of feet. 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 Recreation / Current Exercise: walking and yoga Intake Information: Prescription present Previous Treatment: Orthotics (OTC shoe inserts) Pain: Pain Pain Level: 4 Pain Location: Foot - Right, Foot - Left Description: Sharp, Throbbing, Aching Frequency: Intermittent, Walking Post Treatment Pain Post Treatment Pain Level: No Change PROMIS Scales 09/28/2024 Higher is Better Phys Func - Score 46 (within normal limits) Phys Func - Percentile 34 Self-Eff Symptom - Score 40 (Average) Self-Eff Symptom - Percentile 16 T-scores: mean of general population = 50. 5 points is clinically meaningfully difference Percentiles provide an indication of how the patient's score ranks in relation to the general population. Higher percentile rankings indicate better function/quality of life. 50th percentile is the average of the general population and indicates half of respondents had a worse score. OBJECTIVE MEASURES WITH LEVEL OF FUNCTION: Gait Gait Observation: normal Plantar Callus Pattern: Right:large plantar surface callus under midfoot Left:Large plantar surface callus under midfoot Supine: ROM: Ankle Dorsiflexion: Right: AROM:10 degrees Ankle Dorsiflexion: Left: AROM 10 degrees Calcaneal eversion: Right: WNL Left: WNL Hallux dorsiflexion: Open chain right: >60 left: >60 Alignment: Rest: Medial arch appearance: Right: Low Left:Low Equinus: Right:forefoot Left:forefoot Leg length (ASIS to me Prone Subtalar Neutral Alignment: Right: Rearfoot:0 degrees Forefoot:4 degrees varus Left: Rearfoot:0 degrees Forefoot:6 degrees varus First Ray Position: Right: pf Left: pf First Ray Mobility: Right: flexibile Left:flexibile WEIGHT BEARING: Alignment: Rest: Medial arch appearance: Right: Low Left Low Calcaneal stance position: Right: everted Left everted Knee position: Right: Straight Left Straight Subtalar Neutral: Medial arch appearance: Right Low Left:Low Calcaneal stance position: Right: everted Left: everted Forefoot position: Right: flat on ground Left: flat on ground Knee posit (more content not included)... [facility] 09-29-2024 History of Present illness Narrative Episode Visit Count: 1 Therapist That Will Accept/Oversee The Plan Of Care: Kleber Willingham PT Start of Care Date: 09/29/24 Onset Date: 09/29/21 (chronic pain that flared up 3 years ago) Plan of Care Certification Date: 09/29/24 Next Certification Due Date: 11/10/24 Patient Identified by Name and Date of : Yes REHABILITATION AND SPORTS THERAPY PHYSICAL THERAPY EVALUATION PLAN OF CARE: Assessment: Lidia Ortiz presents with chief complaint of pain in B feet that interferes with walking (exercise) . The patient presents with impairments in ADL's, balance, gait, independence in exercise, overall function, and symptom management. PROMIS (Patient-Reported Outcomes Measurement Information System) scores were reviewed and identified as within normal limits. Prognosis for therapy is Excellent due to: current objective clinical presentation, good overall health status, positive past response to therapy, within-session changes, good support system/ coping skills. The patient will benefit from skilled therapy services to meet the goals established for this plan of care as noted below. Goals for Episode of Care: established 09/29/24 Pt will be educated on proper wear schedule and care of custom biomechanical foot orthotics Pt will be provided with custom biomechanical B foot orthotics that improve foot and ankle biomechanics as intended with proper fit and function. Patient Goals: decrease pain and stay active Time Frame for Goals and Treatment : 11/10/24 Planned Interventions, Frequency, and Duration: Current Frequency: 1 visit Duration: 1 visit Total Number of Visits Planned: 2 (1 evaluation visit and 1 visit for fitting and worm picker) Planned Treatment Interventions: Orthosis / DME, Patient/Family/Caregiver Education, Self-shelter management ([id number]) PLAN FOR NEXT VISIT: Fitting and worm picker of custom foot orthotics Patient demonstrates good understanding of plan of care and treatment. The above goals and plan of care were discussed and agreed upon by patient/family. SUBJECTIVE: Pt reports intermittent pain in B arches and midfeet that is aggravated by WBing activity. She reports feeling better when she warms up. She reports that OTC inserts help some but pain persists with walking for exercise. She locates pain in arch and mid foot, including the dorsum of feet. 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 Recreation / Current Exercise: walking and yoga Intake Information: Prescription present Previous Treatment: Orthotics (OTC shoe inserts) Pain: Pain Pain Level: 4 Pain Location: Foot - Right, Foot - Left Description: Sharp, Throbbing, Aching Frequency: Intermittent, Walking Post Treatment Pain Post Treatment Pain Level: No Change PROMIS Scales 09/28/2024 Higher is Better Phys Func - Score 46 (within normal limits) Phys Func - Percentile 34 Self-Eff Symptom - Score 40 (Average) Self-Eff Symptom - Percentile 16 T-scores: mean of general population = 50. 5 points is clinically meaningfully difference Percentiles provide an indication of how the patient's score ranks in relation to the general population. Higher percentile rankings indicate better function/quality of life. 50th percentile is the average of the general population and indicates half of respondents had a worse score. OBJECTIVE MEASURES WITH LEVEL OF FUNCTION: Gait Gait Observation: normal Plantar Callus Pattern: Right:large plantar surface callus under midfoot Left:Large plantar surface callus under midfoot Supine: ROM: Ankle Dorsiflexion: Right: AROM:10 degrees Ankle Dorsiflexion: Left: AROM 10 degrees Calcaneal eversion: Right: WNL Left: WNL Hallux dorsiflexion: Open chain right: >60 left: >60 Alignment: Rest: Medial arch appearance: Right: Low Left:Low Equinus: Right:forefoot Left:forefoot Leg length (ASIS to me Prone Subtalar Neutral Alignment: Right: Rearfoot:0 degrees Forefoot:4 degrees varus Left: Rearfoot:0 degrees Forefoot:6 degrees varus First Ray Position: Right: pf Left: pf First Ray Mobility: Right: flexibile Left:flexibile WEIGHT BEARING: Alignment: Rest: Medial arch appearance: Right: Low Left Low Calcaneal stance position: Right: everted Left everted Knee position: Right: Straight Left Straight Subtalar Neutral: Medial arch appearance: Right Low Left:Low Calcaneal stance position: Right: everted Left: everted Forefoot position: Right: flat on ground Left: flat on ground Knee position: Right: straight Left straight Mobility: Hallux dorsiflexion Closed chain: Right: >9 Left >9 Midtarsal Mobility: (navicular drop) Right: hyper >8mm Left:hypo <6mm Rearfoot excursion: Right:<4 hypo Left: <4 hypo FUNCTIONAL EVALUATION: Balance(SL): ability/quality Right: unsteady Left: unsteady Balance Excursion Test: *Right: SL Balance was Improved performance with: 4 degree forefoot 0 degree rearfoot wedges *Left: SL Balance was Improved performance with: 4 degree forefoot 0 degree rearfoot wedges Gait Assessment: Walking: normal Running: n/a Orthotic Design Request Shoe size: 10.5. Weight:162 pounds. Plate Type: Functional Orthotic (shell): Sport Performance RX / Engineered Nylon: RX-A Shell Rigidity: Semi-Flexible Plate Specifications: Heel Cup Depth Standard - 12mm, Shell Width Standard Posting: right: 2 degrees for forefoot 2 degrees intrinsic and 0 degrees for rearfoot To vertical left: 2 degrees for forefoot 2 degrees intrinsic and 0 degrees for rearfoot To vertical Additions: none Padding: Type: Soft Thickness:1/8 Padding Length:heels to toes Accommodations: none Top Covers: Material: Leatherette - [place] Black Length:to toes Classification of foot type: Compensated forefoot varus, Forefoot equinus, and Pes Planus Education: Education Learning Preferences: Demonstration, Explanation, Performance, Printed Materials Barriers: None Learning/educational needs: Procedure / Surgery, Lifestyle changes, Brace Fit, Body Mechanics Education Provided: Yes, see treatment interventions for education provided Education Provided To: Patient Education Mode/Type: Demonstration, Explanation/Discussion, Literature/Printed Materials, Performance Response to Education/Teach Back: States/Identifies, Requires Review/Additional Education TREATMENT: PT Treatment Interventions: Orthotic Mgmt/Train (Initial) Evaluation Orthotics Management and Training: A thorough and complete biomechanical assessment completed and all results explained to pt in detail. Pt. was educated on the anatomy of affected area, possible source of symptoms and rationale for proposed treatment plan. A variety of different sized wedges were used as trials for posting at both forefoot and rearfoot. Pt ability with single leg stance and single leg squats was tested without wedges and compared to each trial with different size wedges. Once stability was achieved and biomechanics improved, wedge size recorded for future posting prescription. With patient prone, subtalar neutral position digital scans were made of bilateral feet. These scans and and all supporting documentation was prepared for shipment to lab so that custom foot orthotics can be fabricated. Pt was educated on proper fitting shoes to be used with custom foot orthotics. Recommendations were made on brands of shoes that are well constructed and provide appropriate support. Pt was advised to select neutral shoes to pair with the custom foot orthotics despite patient's foot structure. Pt was also given recommendations on supportive sandals and where these can be purchased. Pt was educated on the process that we will follow once custom orthotics arrive in this department and all of the patient's questions were answered. Skilled Intervention: Clinical knowledge and skills required for custom orthotic fabrication and wearing schedule Patient/Family/Caregiver Education: Precautions, purpose and use of orthosis Wearing schedule explained to patient in detail. Discussed management of any symptoms related to wearing the orthosis Billing * Evaluation Moderate Complexity: 1 Unit Orthotic Mgmt/Train (Initial) Treatment Minutes: 30 Skilled Treatment Time Minutes (timed and untimed codes): 60 Total Session Time (minutes): 70 Session Start Time : 1115 Session Stop Time : 1225 Kleber Willingham PT documented in this encounter [facility] 09-01-2024 Instructions Dory Anderson - 09/01/2024 2:29 PM EDT Diabetes Foot Care Instructions When you have diabetes, proper foot care is very important. Poor foot care may lead to amputation of a foot or leg. As a person with diabetes, you are more vulnerable to foot problems, because diabetes can damage your nerves and reduce blood flow to your feet. Here are some diabetes foot care tips to follow: Wash and Dry Your Feet Daily Use mild soaps Use warm water Pat your skin dry; do not rub. Thoroughly dry your feet. After washing, use lotion on your feet to prevent cracking. Do not put lotion between your toes. Examine Your Feet Each Day Check the tops and bottoms of your feet. Have someone else look at your feet if you cannot see them. Check for dry, cracked skin. Look for blisters, cuts, scratches, or other sores. Check for redness, increased warmth, or tenderness when touching any area of your feet. Check for ingrown toenails, corns, and calluses. If you get a blister or sore from your shoes, do not pop it. Apply a bandage and wear a different pair of shoes. Take Care of Your Toenails Cut toenails after bathing, when they are soft. Cut toenails straight across and smooth with a nail file. Avoid cutting into the corners of toes. Do not cut cuticles. If you have neuropathy (or decreased sensation in your feet) a nnps should always cut your toenails. Be Careful When Exercising Walk and exercise in comfortable shoes. Do not exercise when you have open sores on your feet. Protect Your Feet With Shoes and Socks Never go barefoot. Always protect your feet by wearing shoes or hard-soled slippers or footwear. Avoid shoes with high heels and pointed toes. Avoid shoes that expose your toes or heels (such as open-toed shoes or sandals). These types of shoes increase your risk for injury and potential infections. Try on new footwear with the type of socks you usually wear. Do not wear new shoes for more than an hour at a time. Change your socks daily. Look and feel inside your shoes before putting them on to make sure there are no foreign objects or rough areas. Avoid tight socks. Wear natural-fiber socks (cotton, wool, or a cotton-wool blend). Wear special shoes if your health care provider recommends them. Wear shoes/boots that will protect your feet from various weather conditions (cold, moisture, etc.). Make sure your shoes fit properly. If you have neuropathy (nerve damage), you may not notice that your shoes are too tight. Perform the footwear test described below. Footwear Test Use this simple test to see if your shoes fit correctly: Stand on a piece of paper. (Make sure you are standing and not sitting, because your foot changes shape when you stand.) Trace the outline of your foot. Trace the outline of your shoe. Compare the tracings: Is the shoe too narrow? Is your foot crammed into the shoe? The shoe should be at least 1/2 inch longer than your longest toe and as wide as your foot. Proper Shoe Choices The following types of shoes are best for people with diabetes Closed toes and heels Leather uppers without a seam inside At least 1/2 inch extra space at the end of your longest toe Inside of shoe should be soft with no rough areas Outer sole should be made of stiff material Shoes should be at least as wide as your feet Tips for Foot Care in Diabetes Don't wait to treat a minor foot problem if you have diabetes. Follow your health care provider's guidelines and first aid guidelines. Report foot injuries and infections to your health care provider immediately. Check water temperature with your elbow, not your foot. Do not use a heating pad on your feet. Do not cross your legs. Do not self-treat your corns, calluses, or other foot problems. Go to your health care provider or nnps to treat these conditions. documented in this encounter [facility] 09-01-2024 Note HNO ID: [id number] Author: DORY ANDERSON, ? Service: ? Author Type: Physician Type: Progress Notes Filed: 09/01/2024 14:37 Note Text: Initial Podiatric Office Visit: Chief Complaint: This 79 year old female who presents with chief complaint:b/l foot pain HPI Patient presents to clinic with complaint of pain in b/l midfoot Patient states she has chronic pain in both feet. She states if she has been sitting for long duration, if she gets up to start walking, she has pain She treats the pain with topical nitro pads and/or use of tylenol. Patient is type II diabetic x 6 year. Patient does report intermittent numbness in both feet. PAIN EVALUATION 09/01/2024 0757 09/01/2024 1405 Pain Level: -- 8 Pain Location: Ankle-Right -- Description: Aching;Dull;Sharp -- Duration Units: Months -- Frequency: Continuous Intermittent Intervention/Comfort measure: Medication;Exercise;Other: See comment -- Comments: CBD Cream -- Hemoglobin A1C (%) Date Value 01/05/2023 6.4 04/04/2022 6.8 PCP: Angy Bautista MD PAST MEDICAL HISTORY Diagnosis Date Diabetes type 2, controlled (HCC) Diverticulosis of colon (without mention of hemorrhage) Essential hypertension Hypercholesterolemia Malignant neoplasm of middle lobe of right lung (HCC) 06/26/2022 Rosacea Current Outpatient Medications Medication Sig metFORMIN ER (GLUMETZA) 500 mg 24 hr tablet Take 500 mg by mouth twice daily. metoprolol succinate ER (TOPROL XL) 50 mg 24 hr tablet Take 50 mg by mouth once daily. losartan (COZAAR) 100 mg tablet Take 100 mg by mouth once daily. nitroglycerin sublingual (NITROQUICK) 0.4 mg SL tablet Take 0.4 mg by mouth as needed. alendronate (FOSAMAX) 70 mg tablet Take 70 mg by mouth one time a week. rosuvastatin 5 mg cpSP Take 5 mg by mouth every other day. therapeutic multivitamin ORAL tablet Take 1 tablet by mouth once daily. Coenzyme A87-Wvfaspt E 100-100 mg-unit cap Take 1 capsule by mouth once daily. METROLOTION 0.75 % bid face No current facility-administered medications for this visit. 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 REMOVAL OF LUNG,LOBECTOMY Right 06/26/2022 Right thoracoscopic middle lobectomy with wedge resection of lower lobe, lymph node dissection FAMILY HISTORY Problem Relation Age of Onset Diabetes Mother Hyperlipidemia Mother Cancer Mother Lymphoma Hypertension Father Macular Degen Father Hyperlipidemia Sister Heart Attack Brother Diabetes Maternal Grandfather Stroke Paternal Grandmother Social History Tobacco Use Smoking status: Former Current packs/day: 0.00 Types: Cigarettes Start date: 03/22/1967 Quit date: 03/22/1972 Years since quittin.4 Smokeless tobacco: Never Tobacco comments: social smoker Vaping Use Vaping status: Never Used Substance Use Topics Alcohol use: Yes Comment: ocas wine Drug use: No REVIEW OF SYSTEMS GENERAL: Negative for Malaise, significant weight loss, fever RESPIRATORY: Negative for cough, wheezing and shortness of breath CARDIOVASCULAR: Negative for chest pain, leg swelling and palpitations GI: Negative for abdominal discomfort, blood in stools or black stools and change in bowel habits : Negative for dysuria, frequency and incontinence MUSCULOSKELETAL: Negative for joint pain or swelling, back pain, and muscle pain. SKIN: Negative for lesions, rash, and itching. HEMATOLOGY/LYMPHOLOGY Negative for prolonged bleeding, bruising easily, and swollen nodes. ENDOCRINE: Negative for cold or heat intolerance, polyuria, polydipsia and goiter. NEURO: negative Physical Exam: Constitutional: Pt is a well developed 79 year old female who is alert, oriented and cooperative Eyes: Following during examination. No redness or drainage. Respiratory: RR normal and nonlabored. Even breathing. No evidence of distress or shortness of breath. Psychology: Patient is engaged during conversation. Normal affect and mood. Does not appear depressed or anxious during encounter. Vascular: Dorsalis pedis and posterior tibial pulses palpable as b/l Capillary Fill time < 5 seconds to digits 1-5 b/l Skin temperature warm to warm proximal to distal b/l Hair growth present to digits Neurological: intact light touch/epicritic sensation Vibratory sensation decreased b/l decreased protective sensation + significant neurological deficits Dermatological: Nails 1-5 b/l appear normal. Webspace (more content not included)... [facility] 09-01-2024 History of Present illness Narrative Images from the original note were not included. Initial Podiatric Office Visit: Chief Complaint: This 79 year old female who presents with chief complaint:b/l foot pain HPI Patient presents to clinic with complaint of pain in b/l midfoot Patient states she has chronic pain in both feet. She states if she has been sitting for long duration, if she gets up to start walking, she has pain She treats the pain with topical nitro pads and/or use of tylenol. Patient is type II diabetic x 6 year. Patient does report intermittent numbness in both feet. PAIN EVALUATION 09/01/2024 0757 09/01/2024 1405 Pain Level: -- 8 Pain Location: Ankle-Right -- Description: Aching;Dull;Sharp -- Duration Units: Months -- Frequency: Continuous Intermittent Intervention/Comfort measure: Medication;Exercise;Other: See comment -- Comments: CBD Cream -- Hemoglobin A1C (%) Date Value 01/05/2023 6.4 04/04/2022 6.8 PCP: Angy Bautista MD PAST MEDICAL HISTORY Diagnosis Date Diabetes type 2, controlled (HCC) Diverticulosis of colon (without mention of hemorrhage) Essential hypertension Hypercholesterolemia Malignant neoplasm of middle lobe of right lung (HCC) 06/26/2022 Rosacea Current Outpatient Medications Medication Sig metFORMIN ER (GLUMETZA) 500 mg 24 hr tablet Take 500 mg by mouth twice daily. metoprolol succinate ER (TOPROL XL) 50 mg 24 hr tablet Take 50 mg by mouth once daily. losartan (COZAAR) 100 mg tablet Take 100 mg by mouth once daily. nitroglycerin sublingual (NITROQUICK) 0.4 mg SL tablet Take 0.4 mg by mouth as needed. alendronate (FOSAMAX) 70 mg tablet Take 70 mg by mouth one time a week. rosuvastatin 5 mg cpSP Take 5 mg by mouth every other day. therapeutic multivitamin ORAL tablet Take 1 tablet by mouth once daily. Coenzyme R54-Gyqwrxd E 100-100 mg-unit cap Take 1 capsule by mouth once daily. METROLOTION 0.75 % bid face No current facility-administered medications for this visit. 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 REMOVAL OF LUNG,LOBECTOMY Right 06/26/2022 Right thoracoscopic middle lobectomy with wedge resection of lower lobe, lymph node dissection FAMILY HISTORY Problem Relation Age of Onset Diabetes Mother Hyperlipidemia Mother Cancer Mother Lymphoma Hypertension Father Macular Degen Father Hyperlipidemia Sister Heart Attack Brother Diabetes Maternal Grandfather Stroke Paternal Grandmother Social History Tobacco Use Smoking status: Former Current packs/day: 0.00 Types: Cigarettes Start date: 03/22/1967 Quit date: 03/22/1972 Years since quittin.4 Smokeless tobacco: Never Tobacco comments: social smoker Vaping Use Vaping status: Never Used Substance Use Topics Alcohol use: Yes Comment: ocas wine Drug use: No REVIEW OF SYSTEMS GENERAL: Negative for Malaise, significant weight loss, fever RESPIRATORY: Negative for cough, wheezing and shortness of breath CARDIOVASCULAR: Negative for chest pain, leg swelling and palpitations GI: Negative for abdominal discomfort, blood in stools or black stools and change in bowel habits : Negative for dysuria, frequency and incontinence MUSCULOSKELETAL: Negative for joint pain or swelling, back pain, and muscle pain. SKIN: Negative for lesions, rash, and itching. HEMATOLOGY/LYMPHOLOGY Negative for prolonged bleeding, bruising easily, and swollen nodes. ENDOCRINE: Negative for cold or heat intolerance, polyuria, polydipsia and goiter. NEURO: negative Physical Exam: Constitutional: Pt is a well developed 79 year old female who is alert, oriented and cooperative Eyes: Following during examination. No redness or drainage. Respiratory: RR normal and nonlabored. Even breathing. No evidence of distress or shortness of breath. Psychology: Patient is engaged during conversation. Normal affect and mood. Does not appear depressed or anxious during encounter. Vascular: Dorsalis pedis and posterior tibial pulses palpable as b/l Capillary Fill time < 5 seconds to digits 1-5 b/l Skin temperature warm to warm proximal to distal b/l Hair growth present to digits Neurological: intact light touch/epicritic sensation Vibratory sensation decreased b/l decreased protective sensation + significant neurological deficits Dermatological: Nails 1-5 b/l appear normal. Webspaces clean and dry 1-4 b/l. Skin appears well hydrated and supple. good color, texture, turgor. No open lesions present. No callosities present. Musculoskeletal/Orthopaedic: Patient has pain to palpation of b/l midfoot Foot type is severely pronated with midfoot spurring AJ ROM is decreaswed with knee extended and flexed 1st MPJ is decreased when loaded and no pain or crepitus are noted with ROM. MTJ, STJ are full and free of pain and crepitus. +5/5 muscle strength dorsiflexion, plantarflexion, inversion, eversion b/l Radiographs: 3 views b/l foot ordered September 01, 2024: I have personally reviewed and interpreted these XR myself: severe arthritis of b/l midfoot ASSESSMENT: (M76.829) Posterior tibial tendon dysfunction (primary encounter diagnosis) (M19.079) Arthritis of midfoot, unspecified laterality (E11.9) Controlled type 2 diabetes mellitus without complication, without long-term current use of insulin ([facility]) PLAN: 1. History and physical examination performed. 2. XR reviewed with patient and interpreted today 3. Discussed pain in b/l midfoot. She has severe arthrosis of b/l midfoot. Recommend good supportive shoes. Discussed various shoes and/or use of custom orthotics. She has elected to try custom orthotics. I do feel custom orthotics will provide more support compared to an over the counter device. 4. If pain persists, other options discussed include midfoot injection vs midfoot fusion. 5. Diabetic education performed. 6. F/ prn Dory Anderson DPM Podiatry [address] [facility] [address] Dept: [phone] Dept AMB ROOMING INTAKE FLOWSHEET DATA Pain Pain Level: 8 Pain Location: Ankle-Right Description: Aching, Dull, Sharp Duration Units: Months Frequency: Intermittent Intervention/Comfort measure: Medication, Exercise, Other: See comment Comments: CBD Cream Patient presents with: Left Foot - New, Pain Right Foot - New, Pain Eugenie Vogel LPN documented in this encounter [facility] 09-01-2024 Note HNO ID: [id number] Author: EUGENIE VOGEL LPN Service: ? Author Type: LICENSED NURSE Type: Progress Notes Filed: 09/01/2024 14:37 Note Text: AMB ROOMING INTAKE FLOWSHEET DATA Pain Pain Level: 8 Pain Location: Ankle-Right Description: Aching, Dull, Sharp Duration Units: Months Frequency: Intermittent Intervention/Comfort measure: Medication, Exercise, Other: See comment Comments: CBD Cream Patient presents with: Left Foot - New, Pain Right Foot - New, Pain Eugenie Vogel LPN [facility] 09-01-2024 History of Present illness Narrative Radiology Service Progress Note PATIENT NAME: Lidia Ortiz DATE OF SERVICE: September 01, 2024 TIME: 3:19 PM PATIENT IDENTITY VERIFICATION COMPLETED USING TWO (2) IDENTIFIERS: Name and Date of confirmed by patient verbally. FALL SCREENING: Has the patient had 2 falls in the last year or 1 fall with injury or currently using an Ambulatory Assistive Device (Walker, Cane, Wheelchair, Crutches, etc.)? No PATIENT GENDER DATA: Female. status: : No status: NO. PATIENT RELEVANT IMPLANT DATA REVIEWED: Not Applicable PATIENT PRESENTS WITH AN IMPLANTABLE OR ATTACHED PREFORMS LAMINATOR: No RADIOLOGY DEPARTMENT: General X-ray: Exam(s) Completed: Lower Extremity X-Ray(s): Feet, Bilateral and Wt. Bearing PERIPHERAL IV DATA: Not applicable SIGNED BY: RT Elizabeth(Chele) September 01, 2024 3:19 PM documented in this encounter [facility] 09-01-2024 Note HNO ID: [id number] Author: MEAGHAN MITCHELL RT(R) Service: ? Author Type: Technologist Type: Progress Notes Filed: 09/01/2024 15:19 Note Text: Radiology Service Progress Note PATIENT NAME: Lidia Ortiz DATE OF SERVICE: September 01, 2024 TIME: 3:19 PM PATIENT IDENTITY VERIFICATION COMPLETED USING TWO (2) IDENTIFIERS: Name and Date of confirmed by patient verbally. FALL SCREENING: Has the patient had 2 falls in the last year or 1 fall with injury or currently using an Ambulatory Assistive Device (Walker, Cane, Wheelchair, Crutches, etc.)? No PATIENT GENDER DATA: Female. status: : No status: NO. PATIENT RELEVANT IMPLANT DATA REVIEWED: Not Applicable PATIENT PRESENTS WITH AN IMPLANTABLE OR ATTACHED PREFORMS LAMINATOR: No RADIOLOGY DEPARTMENT: General X-ray: Exam(s) Completed: Lower Extremity X-Ray(s): Feet, Bilateral and Wt. Bearing PERIPHERAL IV DATA: Not applicable SIGNED BY: RT Elizabeth(Chele) September 01, 2024 3:19 PM [facility] 08-05-2024 Note HNO ID: [id number] Author: SARAHI SIMMONS APRN.ROXANA Service: ? Author Type: Nurse Practitioner Type: Progress Notes Filed: 08/05/2024 13:44 Note Text: Chief Complaint Patient presents with: Established Patient HPI: Lidia Ortiz is a 79 year old female who presents here today for follow up lung cancer. Per Dr. Alvarez's previous note: H/o type 2 diabetes (metformin), hypertension and hyperlipidemia. She underwent evaluation for a cough which had been persistent for about 3 months. She had no complaints of dyspnea fever or wheezing. A CT of the chest was performed on 01/24/2022. There was a 3.5 x 3.8 x 4.3 cm mass in the right upper lobe. This abutted the right hilar region. There was no demonstrated pleural abnormality. Mediastinum and hilar regions appeared normal otherwise. There were multilevel degenerative changes of thoracic spine with a 1.4 cm area of sclerosis observed in the posterior aspect of the T9 or T12 vertebrae at the level of the pedicle on the right side for which correlation with bone scan was recommended. There was a 1 cm cyst in the medial inferior aspect of the right lobe of the liver. Patient underwent a CT-guided right lung biopsy on 02/06/2022. Pathology: -Non-small cell carcinoma, favor adenocarcinoma consistent with lung primary. Specimen was positive for TTF-1, CK7, CK 8 in rare cells that showed positivity for CK20. Complicated by pneumothorax that required chest tube. She underwent MRI of the brain which demonstrated no evidence of metastatic disease. PET scan with results noted. She also had an MRI of the thoracic spine. Images have been loaded. She underwent CT-guided biopsy of the suspicious lesion in T10 vertebral body on 03/09/2022. Pathology demonstrated fragments of sclerotic bone with bone marrow fibrosis and edema and no evidence of carcinoma. She underwent surgical evaluation at [facility]. Previous therapy: 1) Neoadjuvant carboplatin, pemetrexed and nivolumab. Underwent right VATS, right middle lobectomy, right lower lung wedge resection, mediastinal lymphadenectomy and intercostal nerve block on 06/26/2022. Pathology: A. Lymph node #7, excision: - Three (3) lymph nodes negative for neoplasm. B. Lymph node #10R, excision: - One (1) lymph node negative for neoplasm. C. Lymph node #10R, excision: - One (1) lymph node negative for neoplasm. D. Lymph node #11R, excision: - One (1) lymph node negative for neoplasm. E. Lymph node #11R, excision: - One (1) lymph node negative for neoplasm. F. Lymph node #11R, excision: - One (1) lymph node negative for neoplasm. G. Right lung, middle lobe, lobectomy: - Invasive adenocarcinoma, acinar predominant, 0.5 cm - Non-necrotizing granulomas. H. Right lung, lower lobe, wedge excision: - Patchy subpleural fibrosis with non-necrotizing granulomas, dystrophic calcium and reactive epithelial atypia. - Negative for neoplasm. I. Lymph node #4R, excision: - Three (3) lymph nodes negative for neoplasm. J. Lymph node #2R, excision: - Three (3) lymph nodes negative for neoplasm Occ. R surgical site pain. Does not occur daily. Every now and then. Appetite:Good. Wt. stable. Energy level:Very good. Denies fevers or recent illness. Resp:denies cough or sob Cardiac:denies chest pain/palpitations GI:denies abd pain, n/v, moving bowels regularly :denies dysuria/hematuria Extrem:denies any other pain, as above Neuro:denies symptoms of neuropathy Skin:denies rashes Heme:denies bleeding The ROS is otherwise negative. Past medical history, appointments, medications, allergies reviewed. No changes. EXAM: BP 192/107 Pulse 61 Temp 36.2 ?C (97.2 ?F) (Temporal) Wt 73.8 kg (162 lb 11.2 oz) SpO2 97% BMI 23.83 kg/m? APPEARANCE Well appearing, alert, in no acute distress, well-hydrated, well nourished. HEART RRR with normal S1 and S2, no murmurs LUNG clear to auscultation LYMPH NODES No cervical lymphadenopathy, No supraclavicular lymphadenopathy, and No axillary lymphadenopathy. ABDOMEN bowel sounds normoactive, soft, non-tender EXTREMITIES No edema NEURO Awake, alert and oriented x 3, Normal gait, and No involuntary motions. SKIN Skin color, texture, turgor normal, no suspicious rashes or lesions RADIOLOGY: CT chest 07/29/24: IMPRESSION: Status post right middle lobectomy and wedge resection in the right lower lobe. Similar scarring and suture line in the right lung with similar nodularity. Stable nodular density along the right heart border. Interval resolution of some of the previously mentioned new nodules in the right lower lobe. A few new nodular densities seen in the anterior right lower lobe. Continued follow-up is suggested. No progressive lymphadenopathy. T10 vertebral body sclerotic lesion. Left kidney stones. ASSESSMENT/PLAN: 1. Encounter for follow-up surveillance of lung cancer - ICD9: V67.9, V10.11, ICD10: Z08, Z85.118 (more content not included)... [facility] 08-05-2024 History of Present illness Narrative Chief Complaint Patient presents with: Established Patient HPI: Lidia Ortiz is a 79 year old female who presents here today for follow up lung cancer. Per Dr. Alvarez's previous note: H/o type 2 diabetes (metformin), hypertension and hyperlipidemia. She underwent evaluation for a cough which had been persistent for about 3 months. She had no complaints of dyspnea fever or wheezing. A CT of the chest was performed on 01/24/2022. There was a 3.5 x 3.8 x 4.3 cm mass in the right upper lobe. This abutted the right hilar region. There was no demonstrated pleural abnormality. Mediastinum and hilar regions appeared normal otherwise. There were multilevel degenerative changes of thoracic spine with a 1.4 cm area of sclerosis observed in the posterior aspect of the T9 or T12 vertebrae at the level of the pedicle on the right side for which correlation with bone scan was recommended. There was a 1 cm cyst in the medial inferior aspect of the right lobe of the liver. Patient underwent a CT-guided right lung biopsy on 02/06/2022. Pathology: -Non-small cell carcinoma, favor adenocarcinoma consistent with lung primary. Specimen was positive for TTF-1, CK7, CK 8 in rare cells that showed positivity for CK20. Complicated by pneumothorax that required chest tube. She underwent MRI of the brain which demonstrated no evidence of metastatic disease. PET scan with results noted. She also had an MRI of the thoracic spine. Images have been loaded. She underwent CT-guided biopsy of the suspicious lesion in T10 vertebral body on 03/09/2022. Pathology demonstrated fragments of sclerotic bone with bone marrow fibrosis and edema and no evidence of carcinoma. She underwent surgical evaluation at [facility]. Previous therapy: 1) Neoadjuvant carboplatin, pemetrexed and nivolumab. Underwent right VATS, right middle lobectomy, right lower lung wedge resection, mediastinal lymphadenectomy and intercostal nerve block on 06/26/2022. Pathology: A. Lymph node #7, excision: - Three (3) lymph nodes negative for neoplasm. B. Lymph node #10R, excision: - One (1) lymph node negative for neoplasm. C. Lymph node #10R, excision: - One (1) lymph node negative for neoplasm. D. Lymph node #11R, excision: - One (1) lymph node negative for neoplasm. E. Lymph node #11R, excision: - One (1) lymph node negative for neoplasm. F. Lymph node #11R, excision: - One (1) lymph node negative for neoplasm. G. Right lung, middle lobe, lobectomy: - Invasive adenocarcinoma, acinar predominant, 0.5 cm - Non-necrotizing granulomas. H. Right lung, lower lobe, wedge excision: - Patchy subpleural fibrosis with non-necrotizing granulomas, dystrophic calcium and reactive epithelial atypia. - Negative for neoplasm. I. Lymph node #4R, excision: - Three (3) lymph nodes negative for neoplasm. J. Lymph node #2R, excision: - Three (3) lymph nodes negative for neoplasm Occ. R surgical site pain. Does not occur daily. Every now and then. Appetite:Good. Wt. stable. Energy level:Very good. Denies fevers or recent illness. Resp:denies cough or sob Cardiac:denies chest pain/palpitations GI:denies abd pain, n/v, moving bowels regularly :denies dysuria/hematuria Extrem:denies any other pain, as above Neuro:denies symptoms of neuropathy Skin:denies rashes Heme:denies bleeding The ROS is otherwise negative. Past medical history, appointments, medications, allergies reviewed. No changes. EXAM: BP 192/107 Pulse 61 Temp 36.2 C (97.2 F) (Temporal) Wt 73.8 kg (162 lb 11.2 oz) SpO2 97% BMI 23.83 kg/m APPEARANCE Well appearing, alert, in no acute distress, well-hydrated, well nourished. HEART RRR with normal S1 and S2, no murmurs LUNG clear to auscultation LYMPH NODES No cervical lymphadenopathy, No supraclavicular lymphadenopathy, and No axillary lymphadenopathy. ABDOMEN bowel sounds normoactive, soft, non-tender EXTREMITIES No edema NEURO Awake, alert and oriented x 3, Normal gait, and No involuntary motions. SKIN Skin color, texture, turgor normal, no suspicious rashes or lesions RADIOLOGY: CT chest 07/29/24: IMPRESSION: Status post right middle lobectomy and wedge resection in the right lower lobe. Similar scarring and suture line in the right lung with similar nodularity. Stable nodular density along the right heart border. Interval resolution of some of the previously mentioned new nodules in the right lower lobe. A few new nodular densities seen in the anterior right lower lobe. Continued follow-up is suggested. No progressive lymphadenopathy. T10 vertebral body sclerotic lesion. Left kidney stones. ASSESSMENT/PLAN: 1. Encounter for follow-up surveillance of lung cancer - ICD9: V67.9, V10.11, ICD10: Z08, Z85.118 (primary diagnosis) 2. Malignant neoplasm of unspecified part of unspecified bronchus or lung (HCC) - ICD9: 162.9, ICD10: C34.90 cT3 cN0 M0 clinical stage IIB non-small cell lung cancer, adenocarcinoma of the right upper lobe. Per Dr. Alvarez's previous note: Assessment: -The patient is a 79 year-old female with a history of light smoking who quit 50+ years ago. Underwent evaluation for a dry, persistent cough and was found to have a mass in the right upper lobe which on biopsy proved to be adenocarcinoma. -cT3 cN0 M0 clinical stage IIB non-small cell lung cancer, adenocarcinoma of the right upper lobe -EGFR mutation and ALK translocation negative. -PD-L1 negative. -Received neoadjuvant chemo/immunotherapy. -ypT1a pN0 -Adjuvant therapy was not indicated. -I personally reviewed CT images with patient and independently verified and agreed with the radiologist's findings. New cluster (two) very small lung nodules. -Repeat BP 200/100. Plan: -CBC/CMP/TSH/T4/Cortisol CT chest then OV in 2-3 months. -Repeat BP at home--will contact Dr. Bautista if remains elevated. - No new concerning findings on exam. Occ. R surgical chest pain. - Reviewed CT chest/labs with pt. and family friend on the phone. - Discussed that pt. was previously on lyrica for another diagnosis. She decided to stop d/t brain fog and around that same time noticed that her surgical site pain worsened. Pain does not occur daily. Also discussed with pt. that if pain becomes worse we could trial gabapentin at a low dose. - Encouraged pt. to check BP at home and follow up with PCP re:HTN. - CT chest in 3 months. - Follow up with Dr. Alvarez after above with CBC/CMP/TSH/T4/Cortisol. - Pt. aware to call office with any questions/concerns. The patient indicates understanding of these issues and agrees with the plan. All documentation from previous visit of 05/06/24-Dr. Alvarez was copied and pasted, documentation has been reviewed and edited as necessary for today's visit. Sarahi Simmons APRN.ROXANA documented in this encounter [facility] 07-29-2024 History of Present illness Narrative Radiology Service Progress Note DATE OF SERVICE: July 29, 2024 TIME: 1:57 PM PATIENT IDENTITY VERIFICATION COMPLETED USING TWO (2) STANDARD IDENTIFIERS: Name and Date of confirmed by patient verbally. FALL SCREENING: Has the patient had 2 falls in the last year or 1 fall with injury or currently using an Ambulatory Assistive Device (Walker, Cane, Wheelchair, Crutches, etc.)? No PATIENT GENDER DATA: Female. status: : No status: NO. PATIENT RELEVANT IMPLANT DATA REVIEWED: Yes PATIENT PRESENTS WITH AN IMPLANTABLE OR ATTACHED PREFORMS LAMINATOR: No ALLERGIES: Reviewed and unchanged CONTRAST ALLERGY: NO. EXAM: CT -CONTRAST INDUCED NEPHROPATHY RISK FACTORS: Patient age > 60 years CREATININE: Creatinine Date Value Ref Range Status 07/29/2024 0.70 0.58 - 0.96 mg/dL Final 04/29/2024 0.66 0.58 - 0.96 mg/dL Final 10/26/2023 0.71 0.58 - 0.96 mg/dL Final Estimated Glomerular Filtration Rate Date Value Ref Range Status 07/29/2024 89 >=60 mL/min/1.73m Final Comment: Estimated Glomerular Filtration Rate (eGFR) is calculated using the 2020 CKD-EPI creatinine equation. This equation utilizes serum creatinine, sex, and age as parameters. The creatinine assay has traceable calibration to isotope dilution-mass spectrometry. Refer to KDIGO guidelines for clinical interpretation. In patients with unstable renal function, e.g. those with acute kidney injury, the eGFR may not accurately reflect actual GFR. eGFR- Date Value Ref Range Status 11/06/2016 >60 Final P.O.C.T. RESULTS: POC done: Yes, See Lab Tab July 29, 2024 TREATMENT: N/A PERIPHERAL IV DATA: Ambulatory: A peripheral IV was started in the Left antecubital site with a Angio cath: 22 gauge. RADIOLOGY DEPARTMENT: CT; Exam(s) Completed: Chest SIGNATURE: MARYBETH Pascal) PATIENT NAME: Lidia Ortiz DATE: July 29, 2024 TIME: 1:57 PM documented in this encounter [facility] 07-29-2024 Note HNO ID: [id number] Author: KORIN EVERETT RT(R) Service: ? Author Type: Oral And Maxillofacial Surgery Type: Progress Notes Filed: 07/29/2024 13:57 Note Text: Radiology Service Progress Note DATE OF SERVICE: July 29, 2024 TIME: 1:57 PM PATIENT IDENTITY VERIFICATION COMPLETED USING TWO (2) STANDARD IDENTIFIERS: Name and Date of confirmed by patient verbally. FALL SCREENING: Has the patient had 2 falls in the last year or 1 fall with injury or currently using an Ambulatory Assistive Device (Walker, Cane, Wheelchair, Crutches, etc.)? No PATIENT GENDER DATA: Female. status: : No status: NO. PATIENT RELEVANT IMPLANT DATA REVIEWED: Yes PATIENT PRESENTS WITH AN IMPLANTABLE OR ATTACHED PREFORMS LAMINATOR: No ALLERGIES: Reviewed and unchanged CONTRAST ALLERGY: NO. EXAM: CT -CONTRAST INDUCED NEPHROPATHY RISK FACTORS: Patient age > 60 years CREATININE: Creatinine Date Value Ref Range Status 07/29/2024 0.70 0.58 - 0.96 mg/dL Final 04/29/2024 0.66 0.58 - 0.96 mg/dL Final 10/26/2023 0.71 0.58 - 0.96 mg/dL Final Estimated Glomerular Filtration Rate Date Value Ref Range Status 07/29/2024 89 >=60 mL/min/1.73m? Final Comment: Estimated Glomerular Filtration Rate (eGFR) is calculated using the 2020 CKD-EPI creatinine equation. This equation utilizes serum creatinine, sex, and age as parameters. The creatinine assay has traceable calibration to isotope dilution-mass spectrometry. Refer to KDIGO guidelines for clinical interpretation. In patients with unstable renal function, e.g. those with acute kidney injury, the eGFR may not accurately reflect actual GFR. eGFR- Date Value Ref Range Status 11/06/2016 >60 Final P.O.C.T. RESULTS: POC done: Yes, See Lab Tab July 29, 2024 TREATMENT: N/A PERIPHERAL IV DATA: Ambulatory: A peripheral IV was started in the Left antecubital site with a Angio cath: 22 gauge. RADIOLOGY DEPARTMENT: CT; Exam(s) Completed: Chest SIGNATURE: RT Naida(R) PATIENT NAME: Lidia Ortiz DATE: July 29, 2024 TIME: 1:57 PM [facility] 05-06-2024 History of Present illness Narrative Oncologic problem(s): 1) cT3 cN0 M0 clinical stage IIB non-small cell lung cancer, adenocarcinoma of the right upper lobe. HPI: The patient is a 79-year-old female who has a past medical history significant for type 2 diabetes (metformin), hypertension and hyperlipidemia. She underwent evaluation for a cough which had been persistent for about 3 months. She had no complaints of dyspnea fever or wheezing. A CT of the chest was performed on 01/24/2022. There was a 3.5 x 3.8 x 4.3 cm mass in the right upper lobe. This abutted the right hilar region. There was no demonstrated pleural abnormality. Mediastinum and hilar regions appeared normal otherwise. There were multilevel degenerative changes of thoracic spine with a 1.4 cm area of sclerosis observed in the posterior aspect of the T9 or T12 vertebrae at the level of the pedicle on the right side for which correlation with bone scan was recommended. There was a 1 cm cyst in the medial inferior aspect of the right lobe of the liver. Patient underwent a CT-guided right lung biopsy on 02/06/2022. Pathology: -Non-small cell carcinoma, favor adenocarcinoma consistent with lung primary. Specimen was positive for TTF-1, CK7, CK 8 in rare cells that showed positivity for CK20. Complicated by pneumothorax that required chest tube. She underwent MRI of the brain which demonstrated no evidence of metastatic disease. PET scan with results noted. She also had an MRI of the thoracic spine. Images have been loaded. She underwent CT-guided biopsy of the suspicious lesion in T10 vertebral body on 03/09/2022. Pathology demonstrated fragments of sclerotic bone with bone marrow fibrosis and edema and no evidence of carcinoma. She underwent surgical evaluation at [facility]. Previous therapy: 1) Neoadjuvant carboplatin, pemetrexed and nivolumab. Underwent right VATS, right middle lobectomy, right lower lung wedge resection, mediastinal lymphadenectomy and intercostal nerve block on 06/26/2022. Pathology: A. Lymph node #7, excision: - Three (3) lymph nodes negative for neoplasm. B. Lymph node #10R, excision: - One (1) lymph node negative for neoplasm. C. Lymph node #10R, excision: - One (1) lymph node negative for neoplasm. D. Lymph node #11R, excision: - One (1) lymph node negative for neoplasm. E. Lymph node #11R, excision: - One (1) lymph node negative for neoplasm. F. Lymph node #11R, excision: - One (1) lymph node negative for neoplasm. G. Right lung, middle lobe, lobectomy: - Invasive adenocarcinoma, acinar predominant, 0.5 cm - Non-necrotizing granulomas. H. Right lung, lower lobe, wedge excision: - Patchy subpleural fibrosis with non-necrotizing granulomas, dystrophic calcium and reactive epithelial atypia. - Negative for neoplasm. I. Lymph node #4R, excision: - Three (3) lymph nodes negative for neoplasm. J. Lymph node #2R, excision: - Three (3) lymph nodes negative for neoplasm Presents for ongoing oncologic management. Interim history: Offers no complaints today. Home blood pressures typically are normal. Appetite normal. In the last month or so she has had 2 episodes of reflux. Has not noticed any at night. No chronic cough. Previous microablation for right sided sciatica. PMH, medications and allergies personally reviewed by me today. Any changes documented in appropriate section. ROS: Constitutional: Denies episodes of fever and night sweats. Not significantly fatigued. Neuro: Denies [place], vertigo, dizziness and imbalance. Denies symptoms of neuropathy. HEENT: No recent change in voice, vision or hearing. Resp: See above. CVS: Denies PND, orthopnea and LE swelling/edema. GI: Denies dysphagia and odynophagia. Denies reflux, n/v, change in bowel habits and abdominal pain. : Denies dysuria or gross hematuria. No symptoms of bladder outlet obstruction. Endo: Denies hot flashes. Denies polyuria and polydipsia. Denies heat and cold intolerance. Musculoskeletal: Sciatica--see previous ROS. Derm: See above. Heme: Denies unusual bleeding and unexplained bruising. Psych: Normal mood. Social: Quit smoking ~50 years ago. Rare alcohol. Two children. Daughter in [place] and son in [facility]. Family: Mother--?stomach cancer. Sister-- age 12 from acute leukemia. PHYSICAL EXAM: Vitals: Blood pressure (!) 224/98, pulse 64, temperature 36.6 C (97.9 F), temperature source Temporal, weight 73.3 kg (161 lb 8 oz), SpO2 99%. Well-appearing and in no acute distress. EYES: Sclerae are anicteric bilaterally. LYMPHATIC: There is no palpable cervical or supraclavicular or axillary adenopathy. RESPIRATORY: Normal vesicular breath sounds in all pelayo. CARDIOVASCULAR: Rhythm is regular. Soft systolic murmur best heard at the left sternal border. ABDOMEN: The abdomen is nondistended. No organomegaly. No tenderness. Extremities: No swelling or edema. SKIN: No jaundice. LABS: ASSESSMENT/PLAN: (C34.90) Malignant neoplasm of unspecified part of unspecified bronchus or lung (HCC) (primary encounter diagnosis) Assessment: -The patient is a 79 year-old female with a history of light smoking who quit 50+ years ago. Underwent evaluation for a dry, persistent cough and was found to have a mass in the right upper lobe which on biopsy proved to be adenocarcinoma. -cT3 cN0 M0 clinical stage IIB non-small cell lung cancer, adenocarcinoma of the right upper lobe -EGFR mutation and ALK translocation negative. -PD-L1 negative. -Received neoadjuvant chemo/immunotherapy. -ypT1a pN0 -Adjuvant therapy was not indicated. -I personally reviewed CT images with patient and independently verified and agreed with the radiologist's findings. New cluster (two) very small lung nodules. -Repeat BP 200/100. Plan: -CBC/CMP/TSH/T4/Cortisol CT chest then OV in 2-3 months. -Repeat BP at home--will contact Dr. Bautista if remains elevated. Portions of this documentation were copied and pasted from previous office visit notes in order to provide a cohesive continuity of the history. The note has been reviewed and edited and updated as necessary. Rohan Alvarez DO documented in this encounter [facility] 04-29-2024 History of Present illness Narrative Radiology Service Progress Note DATE OF SERVICE: April 29, 2024 TIME: 2:24 PM PATIENT IDENTITY VERIFICATION COMPLETED USING TWO (2) STANDARD IDENTIFIERS: Name and Date of confirmed by patient verbally. FALL SCREENING: Has the patient had 2 falls in the last year or 1 fall with injury or currently using an Ambulatory Assistive Device (Walker, Cane, Wheelchair, Crutches, etc.)? No PATIENT GENDER DATA: Female. status: : No status: NO. PATIENT RELEVANT IMPLANT DATA REVIEWED: Yes PATIENT PRESENTS WITH AN IMPLANTABLE OR ATTACHED PREFORMS LAMINATOR: No ALLERGIES: Reviewed and unchanged CONTRAST ALLERGY: NO. EXAM: CT -CONTRAST INDUCED NEPHROPATHY RISK FACTORS: Patient age > 60 years CREATININE: Creatinine Date Value Ref Range Status 04/29/2024 0.66 0.58 - 0.96 mg/dL Final 10/26/2023 0.71 0.58 - 0.96 mg/dL Final 05/01/2023 0.77 0.58 - 0.96 mg/dL Final Estimated Glomerular Filtration Rate Date Value Ref Range Status 04/29/2024 90 >=60 mL/min/1.73m Final Comment: Estimated Glomerular Filtration Rate (eGFR) is calculated using the 2020 CKD-EPI creatinine equation. This equation utilizes serum creatinine, sex, and age as parameters. The creatinine assay has traceable calibration to isotope dilution-mass spectrometry. Refer to KDIGO guidelines for clinical interpretation. In patients with unstable renal function, e.g. those with acute kidney injury, the eGFR may not accurately reflect actual GFR. eGFR- Date Value Ref Range Status 11/06/2016 >60 Final P.O.C.T. RESULTS: POC done: Yes, See Lab Tab April 29, 2024 TREATMENT: N/A PERIPHERAL IV DATA: Ambulatory: A peripheral IV was started in the Left antecubital site with a Angio cath: 22 gauge. RADIOLOGY DEPARTMENT: CT; Exam(s) Completed: Chest SIGNATURE: RT Naida(R) PATIENT NAME: Lidia Ortiz DATE: April 29, 2024 TIME: 2:24 PM documented in this encounter [facility] 04-28-2024 Telephone encounter Note No, when you sign the orders, Sanitors sends the patient a message to schedule labs because a new order was entered. She had already scheduled the lab appointment back in October. Fiordaliza Grimes LPN [facility] 04-28-2024 Miscellaneous Notes No, when you sign the orders, Sanitors sends the patient a message to schedule labs because a new order was entered. She had already scheduled the lab appointment back in October. Fiordaliza Grimes LPN Am I missing something? Rohan Alvarez DO documented in this encounter [facility] 04-28-2024 Telephone encounter Note Am I missing something? Rohan Alvarez DO [facility] Work Phone: 11-02-2023 History of Present illness Narrative Oncologic problem(s): 1) cT3 cN0 M0 clinical stage IIB non-small cell lung cancer, adenocarcinoma of the right upper lobe. HPI: The patient is a 78-year-old female who has a past medical history significant for type 2 diabetes (metformin), hypertension and hyperlipidemia. She underwent evaluation for a cough which had been persistent for about 3 months. She had no complaints of dyspnea fever or wheezing. A CT of the chest was performed on 01/24/2022. There was a 3.5 x 3.8 x 4.3 cm mass in the right upper lobe. This abutted the right hilar region. There was no demonstrated pleural abnormality. Mediastinum and hilar regions appeared normal otherwise. There were multilevel degenerative changes of thoracic spine with a 1.4 cm area of sclerosis observed in the posterior aspect of the T9 or T12 vertebrae at the level of the pedicle on the right side for which correlation with bone scan was recommended. There was a 1 cm cyst in the medial inferior aspect of the right lobe of the liver. Patient underwent a CT-guided right lung biopsy on 02/06/2022. Pathology: -Non-small cell carcinoma, favor adenocarcinoma consistent with lung primary. Specimen was positive for TTF-1, CK7, CK 8 in rare cells that showed positivity for CK20. Complicated by pneumothorax that required chest tube. She underwent MRI of the brain which demonstrated no evidence of metastatic disease. PET scan with results noted. She also had an MRI of the thoracic spine. Images have been loaded. She underwent CT-guided biopsy of the suspicious lesion in T10 vertebral body on 03/09/2022. Pathology demonstrated fragments of sclerotic bone with bone marrow fibrosis and edema and no evidence of carcinoma. She underwent surgical evaluation at [facility]. Previous therapy: 1) Neoadjuvant carboplatin, pemetrexed and nivolumab. Underwent right VATS, right middle lobectomy, right lower lung wedge resection, mediastinal lymphadenectomy and intercostal nerve block on 06/26/2022. Pathology: A. Lymph node #7, excision: - Three (3) lymph nodes negative for neoplasm. B. Lymph node #10R, excision: - One (1) lymph node negative for neoplasm. C. Lymph node #10R, excision: - One (1) lymph node negative for neoplasm. D. Lymph node #11R, excision: - One (1) lymph node negative for neoplasm. E. Lymph node #11R, excision: - One (1) lymph node negative for neoplasm. F. Lymph node #11R, excision: - One (1) lymph node negative for neoplasm. G. Right lung, middle lobe, lobectomy: - Invasive adenocarcinoma, acinar predominant, 0.5 cm - Non-necrotizing granulomas. H. Right lung, lower lobe, wedge excision: - Patchy subpleural fibrosis with non-necrotizing granulomas, dystrophic calcium and reactive epithelial atypia. - Negative for neoplasm. I. Lymph node #4R, excision: - Three (3) lymph nodes negative for neoplasm. J. Lymph node #2R, excision: - Three (3) lymph nodes negative for neoplasm Presents for ongoing oncologic management. Interim history: Had Covid 3 weeks ago. ?Fever. Chills. Bad BARAHONA. Lot of nasal congestion. Recovered. Mild fatigue but improving. Had thin melanoma removed left mid-back. No indication for SLN biopsy. Was done at [facility] in [place]. Some GARCES with climbing hills, but doesn't stop her. No cough. Hasn't had recurrent chest pain. Has been seeing Dr. Connors. Good appetite. Previous microablation for right sided sciatica. PMH, medications and allergies personally reviewed by me today. Any changes documented in appropriate section. ROS: Constitutional: Denies episodes of fever and night sweats. Not significantly fatigued. Neuro: Denies BARAHONA, vertigo, dizziness and imbalance. Denies symptoms of neuropathy. HEENT: No recent change in voice, vision or hearing. Resp: See above. CVS: Denies PND, orthopnea and LE swelling/edema. GI: Denies dysphagia and odynophagia. Denies reflux, n/v, change in bowel habits and abdominal pain. : Denies dysuria or gross hematuria. No symptoms of bladder outlet obstruction. Endo: Denies hot flashes. Denies polyuria and polydipsia. Denies heat and cold intolerance. Musculoskeletal: Sciatica--see previous ROS. Derm: See above. Heme: Denies unusual bleeding and unexplained bruising. Psych: Normal mood. Social: Quit smoking ~50 years ago. Rare alcohol. Two children. Daughter in [place] and son in [facility]. Family: Mother--?stomach cancer. Sister-- age 12 from acute leukemia. PHYSICAL EXAM: Vitals: Blood pressure 155/78, pulse 60, temperature 36.4 C (97.6 F), height 176 cm (5' 9.29), weight 73.9 kg (163 lb), SpO2 99%. Well-appearing and in no acute distress. EYES: Sclerae are anicteric bilaterally. LYMPHATIC: There is no palpable cervical or supraclavicular or axillary adenopathy. RESPIRATORY: Normal vesicular breath sounds in all pelayo. CARDIOVASCULAR: Rhythm is regular. Soft systolic murmur best heard at the left sternal border. ABDOMEN: The abdomen is nondistended. No organomegaly. No tenderness. Extremities: No swelling or edema. SKIN: No jaundice. Healed incision mid left back. LABS: ASSESSMENT/PLAN: (C34.90) Malignant neoplasm of unspecified part of unspecified bronchus or lung (HCC) (primary encounter diagnosis) Assessment: -The patient is a 77 year-old female with a history of light smoking who quit 50 years ago. Underwent evaluation for a dry, persistent cough and was found to have a mass in the right upper lobe which on biopsy proved to be adenocarcinoma. -cT3 cN0 M0 clinical stage IIB non-small cell lung cancer, adenocarcinoma of the right upper lobe -EGFR mutation and ALK translocation negative. -PD-L1 negative. -Received neoadjuvant chemo/immunotherapy. -ypT1a pN0 -Adjuvant therapy was not indicated. -Reviewed CT results. DEWAYNE. -Plan every [address] chest up to 2 years then annually up to 5 years. Plan: -CBC/CMP/TSH/T4/Cortisol CT chest then OV in about 6 months. Portions of this documentation were copied and pasted from previous office visit notes in order to provide a cohesive continuity of the history. The note has been reviewed and edited and updated as necessary. I spent a total of 20 minutes on the date of the service which included preparing to see the patient, [id number] patient care, completing clinical documentation, obtaining and/or reviewing separately obtained history, performing a medically appropriate examination, counseling and educating the patient/family/caregiver, ordering medications, tests, or procedures, communicating with other HCPs (not separately reported), and communicating results to the patient/family/caregiver. Rohan Alvarez DO documented in this encounter [facility] 10-22-2023 Miscellaneous Notes Order filed. Rohan Alvarez DO Please place order for stat creatinine order for pt , pt appt 10/26/[address] documented in this encounter [facility] 05-03-2023 History of Present illness Narrative Oncologic problem(s): 1) cT3 cN0 M0 clinical stage IIB non-small cell lung cancer, adenocarcinoma of the right upper lobe. HPI: The patient is a 78-year-old female who has a past medical history significant for type 2 diabetes (metformin), hypertension and hyperlipidemia. She underwent evaluation for a cough which had been persistent for about 3 months. She had no complaints of dyspnea fever or wheezing. A CT of the chest was performed on 01/24/2022. There was a 3.5 x 3.8 x 4.3 cm mass in the right upper lobe. This abutted the right hilar region. There was no demonstrated pleural abnormality. Mediastinum and hilar regions appeared normal otherwise. There were multilevel degenerative changes of thoracic spine with a 1.4 cm area of sclerosis observed in the posterior aspect of the T9 or T12 vertebrae at the level of the pedicle on the right side for which correlation with bone scan was recommended. There was a 1 cm cyst in the medial inferior aspect of the right lobe of the liver. Patient underwent a CT-guided right lung biopsy on 02/06/2022. Pathology: -Non-small cell carcinoma, favor adenocarcinoma consistent with lung primary. Specimen was positive for TTF-1, CK7, CK 8 in rare cells that showed positivity for CK20. Complicated by pneumothorax that required chest tube. She underwent MRI of the brain which demonstrated no evidence of metastatic disease. PET scan with results noted. She also had an MRI of the thoracic spine. Images have been loaded. She underwent CT-guided biopsy of the suspicious lesion in T10 vertebral body on 03/09/2022. Pathology demonstrated fragments of sclerotic bone with bone marrow fibrosis and edema and no evidence of carcinoma. She underwent surgical evaluation at [facility]. Previous therapy: 1) Neoadjuvant carboplatin, pemetrexed and nivolumab. Underwent right VATS, right middle lobectomy, right lower lung wedge resection, mediastinal lymphadenectomy and intercostal nerve block on 06/26/2022. Pathology: Presents for ongoing oncologic management. Interim history: CT chest December 2022 demonstrated a new soft tissue mass adjacent to the right cardiac margin. Follow-up PET scan did not demonstrate FDG avidity of this lesion. I feel great. Some GARCES with climbing hills, but doesn't stop her. No cough. Hasn't had recurrent chest pain. Has been seeing Dr. Connors. Good appetite. Had microablation for right sided sciatica. PMH, medications and allergies personally reviewed by me today. Any changes documented in appropriate section. ROS: Constitutional: Denies episodes of fever and night sweats. Not significantly fatigued. Neuro: Denies BAR[place], vertigo, dizziness and imbalance. Denies symptoms of neuropathy. HEENT: No recent change in voice, vision or hearing. Resp: See above. CVS: Denies PND, orthopnea and LE swelling/edema. GI: Denies dysphagia and odynophagia. Denies reflux, n/v, change in bowel habits and abdominal pain. : Denies dysuria or gross hematuria. No symptoms of bladder outlet obstruction. Endo: Denies hot flashes. Denies polyuria and polydipsia. Denies heat and cold intolerance. Musculoskeletal: Sciatica--see previous ROS. Derm: Denies rash. Denies jaundice and diffuse pruritis. Heme: Denies unusual bleeding and unexplained bruising. Psych: Normal mood. Social: Quit smoking ~50 years ago. Rare alcohol. Two children. Daughter in [place] and son in [facility]. Family: Mother--?stomach cancer. Sister-- age 12 from acute leukemia. PHYSICAL EXAM: Vitals: Blood pressure 133/72, pulse 64, temperature 36.4 C (97.6 F), height 177 cm (5' 9.69), weight 70.1 kg (154 lb 8 oz), SpO2 94 %. Well-appearing and in no acute distress. EYES: Sclerae are anicteric bilaterally. LYMPHATIC: There is no palpable cervical or supraclavicular or axillary adenopathy. RESPIRATORY: Normal vesicular breath sounds in all pelayo. CARDIOVASCULAR: Rhythm is regular. Soft systolic murmur best heard at the left sternal border. ABDOMEN: The abdomen is nondistended. No organomegaly. No tenderness. Extremities: No swelling or edema. SKIN: No jaundice or rash. No petechiae. NEUROLOGIC: mechanical lead II-XII are grossly intact. No focal motor weakness. LABS: Component Latest Ref Rng & Units 05/01/2023 WBC 3.70 - 11.00 k/uL 5.97 RBC 3.90 - 5.20 m/uL 4.37 Hemoglobin 11.5 - 15.5 g/dL 13.5 Hematocrit 36.0 - 46.0 % 39.8 MCV 80.0 - 100.0 fL 91.1 MCH 26.0 - 34.0 pg 30.9 MCHC 30.5 - 36.0 g/dL 33.9 RDW-CV 11.5 - 15.0 % 13.2 Platelet Count 150 - 400 k/uL 243 MPV 9.0 - 12.7 fL 8.9 (L) Neut% % 54.6 Abs Neut (ANC) 1.45 - 7.50 k/uL 3.26 Lymph% % 35.5 Abs Lymph 1.00 - 4.00 k/uL 2.12 [place]% % 8.0 Abs [place] <0.87 k/uL 0.48 Eosin% % 0.7 Abs Eosin <0.46 k/uL 0.04 Baso% % 0.7 Abs Baso <0.11 k/uL 0.04 Immature Gran % % 0.5 IMMATURE GRANS (ABS) <0.10 k/uL 0.03 NRBC /100 WBC 0.0 Absolute nRBC <0.01 k/uL <0.01 DTYPE Auto Glucose 74 - 99 mg/dL 140 (H) BUN 7 - 21 mg/dL 29 (H) Creatinine 0.58 - 0.96 mg/dL 0.77 Sodium 136 - 144 mmol/L 137 Potassium 3.7 - 5.1 mmol/L 3.8 Chloride 97 - 105 mmol/L 97 CO2 22 - 30 mmol/L 31 (H) Anion Gap 9 - 18 mmol/L 9 Calcium 8.5 - 10.2 mg/dL 10.0 eGFR >=60 mL/min/1.73m 80 Albumin 3.9 - 4.9 g/dL 4.4 Bilirubin, Total 0.2 - 1.3 mg/dL 0.2 Bilirubin, Conjug <0.2 mg/dL <0.2 Alkaline Phosphatase 34 - 123 U/L 67 AST 13 - 35 U/L 13 ALT 7 - 38 U/L 19 Protein, Total 6.3 - 8.0 g/dL 6.9 ASSESSMENT/PLAN: (C34.90) Malignant neoplasm of unspecified part of unspecified bronchus or lung (HCC) (primary encounter diagnosis) Assessment: -The patient is a 77 year-old female with a history of light smoking who quit 50 years ago. Underwent evaluation for a dry, persistent cough and was found to have a mass in the right upper lobe which on biopsy proved to be adenocarcinoma. -cT3 cN0 M0 clinical stage IIB non-small cell lung cancer, adenocarcinoma of the right upper lobe -EGFR mutation and ALK translocation negative. -PD-L1 negative. -Received neoadjuvant chemo/immunotherapy. -ypT1a pN0 -Adjuvant therapy was not indicated. -I personally reviewed CT images and independently verified and agreed with the radiologist's findings. DEWAYNE. Plan: -CT chest in 6 months. Portions of this documentation were copied and pasted from previous office visit notes in order to provide a cohesive continuity of the history. The note has been reviewed and edited and updated as necessary. I spent a total of 20 minutes on the date of the service which included preparing to see the patient, [id number] patient care, completing clinical documentation, obtaining and/or reviewing separately obtained history, performing a medically appropriate examination, counseling and educating the patient/family/caregiver, communicating with other HCPs (not separately reported), independently interpreting results (not separately reported), and communicating results to the patient/family/caregiver. Rohan Alvarez DO documented in this encounter [facility] 05-01-2023 History of Present illness Narrative Radiology Service Progress Note DATE OF SERVICE: May 01, 2023 TIME: 4:13 PM PATIENT IDENTITY VERIFICATION COMPLETED USING TWO (2) STANDARD IDENTIFIERS: Name and Date of confirmed by patient verbally. FALL SCREENING: Has the patient had 2 falls in the last year or 1 fall with injury or currently using an Ambulatory Assistive Device (Walker, Cane, Wheelchair, Crutches, etc.)? No PATIENT GENDER DATA: Female. status: : No status: NO. PATIENT RELEVANT IMPLANT DATA REVIEWED: Yes ALLERGIES: Reviewed and unchanged CONTRAST ALLERGY: NO. EXAM: CT -CONTRAST INDUCED NEPHROPATHY RISK FACTORS: Patient age > 60 years CREATININE: Creatinine Date Value Ref Range Status 05/01/2023 0.77 0.58 - 0.96 mg/dL Final 01/05/2023 0.64 0.58 - 0.96 mg/dL Final 10/03/2022 0.66 0.58 - 0.96 mg/dL Final Estimated Glomerular Filtration Rate Date Value Ref Range Status 05/01/2023 80 >=60 mL/min/1.73m Final Comment: Estimated Glomerular Filtration Rate (eGFR) is calculated using the 2020 CKD-EPI creatinine equation. This equation utilizes serum creatinine, sex, and age as parameters. The creatinine assay has traceable calibration to isotope dilution-mass spectrometry. Refer to KDIGO guidelines for clinical interpretation. In patients with unstable renal function, e.g. those with acute kidney injury, the eGFR may not accurately reflect actual GFR. eGFR- Date Value Ref Range Status 11/06/2016 >60 Final P.O.C.T. RESULTS: POC done: Yes, See Lab Tab May 01, 2023 TREATMENT: N/A PERIPHERAL IV DATA: Ambulatory: A peripheral IV was started in the Left antecubital site with a Angio cath: 22 gauge. RADIOLOGY DEPARTMENT: CT; Exam(s) Completed: Chest SIGNATURE: RT Naida(R) PATIENT NAME: Lidia Ortiz DATE: May 01, 2023 TIME: 4:13 PM documented in this encounter [facility] 01-31-2023 Miscellaneous Notes Patient scheduled Pt notified and voices understanding. Please reach out to pt to schedule the CT labs and OV. Radha Desai LPN Can let her know that the PET scan showed no abnormalities that are consistent with cancer. The areas observed on the CT scan including the small tissue along the heart appears to be postoperative scar. Plan follow-up CT scan in 3 months. Schedule for CBC/BMP/liver panel CT chest then office visit in about 3 months. Rohan Alvarez DO documented in this encounter [facility] 01-30-2023 Note HNO ID: [id number] Author: RT León(R) Service: Nuclear Medicine Author Type: Technologist Type: Progress Notes Filed: 01/30/2023 8:47 AM Note Text: RADIOLOGY SERVICE PROGRESS NOTE SERVICE DATE: 01/30/2023 SERVICE TIME: 8:47 AM PATIENT IDENTITY VERIFICATION COMPLETED USING TWO (2) STANDARD IDENTIFIERS: Name and Date of confirmed by patient verbally FALL SCREENING: Has the patient had 2 falls in the last year or 1 fall with injury or currently using an Ambulatory Assistive Device (Walker, Cane, Wheelchair, Crutches, etc.)? No PATIENT GENDER DATA: .female : No ALLERGIES: Reviewed and unchanged MEDICATIONS REVIEWED: No PATIENT RELEVANT IMPLANT DATA REVIEWED: Not Applicable CREATININE: Creatinine Date Value Ref Range Status 01/05/2023 0.64 0.58 - 0.96 mg/dL Final 10/03/2022 0.66 0.58 - 0.96 mg/dL Final 07/11/2022 0.66 0.58 - 0.96 mg/dL Final Estimated Glomerular Filtration Rate Date Value Ref Range Status 01/05/2023 92 >=60 mL/min/1.73m? Final Comment: Estimated Glomerular Filtration Rate (eGFR) is calculated using the 2020 CKD-EPI creatinine equation. This equation utilizes serum creatinine, sex, and age as parameters. The creatinine assay has traceable calibration to isotope dilution-mass spectrometry. Refer to KDIGO guidelines for clinical interpretation. In patients with unstable renal function, e.g. those with acute kidney injury, the eGFR may not accurately reflect actual GFR. eGFR- Date Value Ref Range Status 11/06/2016 >60 Final P.O.C.T. RESULTS: N/A January 30, [address] PERFORMED: No IV SITE: Ambulatory: NM only - direct IV injection in the Right antecubital site POST EXAM PIV STATUS: Not applicable PROCEDURE TYPE: NM INJECT: PET/CT BODY SCAN. 10.8 mCi F18 FDG. No other medications given.. ADMINISTRATION TIME: 0843 PATIENT DISCHARGED TO: Ambulatory patient, left [facility] department area. A Diagnostic radioactive procedure has taken place, with no further precautions necessary other than routine body substance precautions. More information regarding radiation safety can be found using this link: [email or web address] SIGNATURE: RT León(R) PATIENT NAME: Lidia Ortiz DATE: January 30, 2023 TIME: 8:47 AM PAGER/CONTACT #: [facility] 01-30-2023 History of Present illness Narrative RADIOLOGY SERVICE PROGRESS NOTE SERVICE DATE: 01/30/2023 SERVICE TIME: 8:47 AM PATIENT IDENTITY VERIFICATION COMPLETED USING TWO (2) STANDARD IDENTIFIERS: Name and Date of confirmed by patient verbally FALL SCREENING: Has the patient had 2 falls in the last year or 1 fall with injury or currently using an Ambulatory Assistive Device (Walker, Cane, Wheelchair, Crutches, etc.)? No PATIENT GENDER DATA: .female : No ALLERGIES: Reviewed and unchanged MEDICATIONS REVIEWED: No PATIENT RELEVANT IMPLANT DATA REVIEWED: Not Applicable CREATININE: Creatinine Date Value Ref Range Status 01/05/2023 0.64 0.58 - 0.96 mg/dL Final 10/03/2022 0.66 0.58 - 0.96 mg/dL Final 07/11/2022 0.66 0.58 - 0.96 mg/dL Final Estimated Glomerular Filtration Rate Date Value Ref Range Status 01/05/2023 92 >=60 mL/min/1.73m Final Comment: Estimated Glomerular Filtration Rate (eGFR) is calculated using the 2020 CKD-EPI creatinine equation. This equation utilizes serum creatinine, sex, and age as parameters. The creatinine assay has traceable calibration to isotope dilution-mass spectrometry. Refer to KDIGO guidelines for clinical interpretation. In patients with unstable renal function, e.g. those with acute kidney injury, the eGFR may not accurately reflect actual GFR. eGFR- Date Value Ref Range Status 11/06/2016 >60 Final P.O.C.T. RESULTS: N/A January 30, [address] PERFORMED: No IV SITE: Ambulatory: NM only - direct IV injection in the Right antecubital site POST EXAM PIV STATUS: Not applicable PROCEDURE TYPE: NM INJECT: PET/CT BODY SCAN. 10.8 mCi F18 FDG. No other medications given.. ADMINISTRATION TIME: 0843 PATIENT DISCHARGED TO: Ambulatory patient, left [place] department area. A Diagnostic radioactive procedure has taken place, with no further precautions necessary other than routine body substance precautions. More information regarding radiation safety can be found using this link: [email or web address] SIGNATURE: RT León(R) PATIENT NAME: Lidia Ortiz DATE: January 30, 2023 TIME: 8:47 AM PAGER/CONTACT #: documented in this encounter [facility] 01-15-2023 Miscellaneous Notes Result faxed. Fiordaliza Grimes LPN Patient called requesting that a copy of Echo completed on 01/[address] Connors's office - [facility]. documented in this encounter [facility] 01-09-2023 Miscellaneous Notes Information faxed As directed. Emy Finnegan LPN Pt has received a call from Dr. Connors's office that her appt has been moved up to 01/18/23. She would like to know if her most recent labs and EKG done today could be sent to Dr. Connors's office. documented in this encounter [facility] 01-09-2023 History of Present illness Narrative Oncologic problem(s): 1) cT3 cN0 M0 clinical stage IIB non-small cell lung cancer, adenocarcinoma of the right upper lobe. HPI: The patient is a 77-year-old female who has a past medical history significant for type 2 diabetes (metformin), hypertension and hyperlipidemia. She underwent evaluation for a cough which had been persistent for about 3 months. She had no complaints of dyspnea fever or wheezing. A CT of the chest was performed on 01/24/2022. There was a 3.5 x 3.8 x 4.3 cm mass in the right upper lobe. This abutted the right hilar region. There was no demonstrated pleural abnormality. Mediastinum and hilar regions appeared normal otherwise. There were multilevel degenerative changes of thoracic spine with a 1.4 cm area of sclerosis observed in the posterior aspect of the T9 or T12 vertebrae at the level of the pedicle on the right side for which correlation with bone scan was recommended. There was a 1 cm cyst in the medial inferior aspect of the right lobe of the liver. Patient underwent a CT-guided right lung biopsy on 02/06/2022. Pathology: -Non-small cell carcinoma, favor adenocarcinoma consistent with lung primary. Specimen was positive for TTF-1, CK7, CK 8 in rare cells that showed positivity for CK20. Complicated by pneumothorax that required chest tube. She underwent MRI of the brain which demonstrated no evidence of metastatic disease. PET scan with results noted. She also had an MRI of the thoracic spine. Images have been loaded. She underwent CT-guided biopsy of the suspicious lesion in T10 vertebral body on 03/09/2022. Pathology demonstrated fragments of sclerotic bone with bone marrow fibrosis and edema and no evidence of carcinoma. She underwent surgical evaluation at [facility]. Previous therapy: 1) Neoadjuvant carboplatin, pemetrexed and nivolumab. Underwent right VATS, right middle lobectomy, right lower lung wedge resection, mediastinal lymphadenectomy and intercostal nerve block on 06/26/2022. Pathology: Presents for ongoing oncologic management. Interim history: Cough resolved after stopping lisinopril. Her PCP started her on losartan. She continued to have elevated blood pressure so dose was increased to 100 mg daily about 6 weeks ago. She has been getting intermittent upper left-sided chest pain. Pain can be sharp but self resolves. No consistent triggering factor. Most often she will have it in the morning when she wakes up. She has not taken anything for it. She continues to walk 1-2 miles in morning then about another mille in the evenings. Doing a yoga class. Lifts free weights every other day. She can experience the chest pain when she is active. It does not cause any diaphoresis, nausea or shortness of breath. It can self resolve while she continues to walk. She was given nitroglycerin by her PCP but has not used it. She has been scheduled to see a padding machine operator in February. She does not recall having a repeat EKG or echocardiogram since the time of her surgery last summer. PMH, medications and allergies personally reviewed by me today. Any changes documented in appropriate section. ROS: Constitutional: Denies episodes of fever and night sweats. Not significantly fatigued. Normal appetite. Neuro: Denies BARAHONA, vertigo, dizziness and imbalance. Denies symptoms of neuropathy. HEENT: No recent change in voice, vision or hearing. Resp: See above. CVS: Denies PND, orthopnea and LE swelling/edema. GI: Denies dysphagia and odynophagia. Denies reflux, n/v, change in bowel habits and abdominal pain. : Denies dysuria or gross hematuria. No symptoms of bladder outlet obstruction. Endo: Denies hot flashes. Denies polyuria and polydipsia. Denies heat and cold intolerance. Musculoskeletal: Sciatica for years deep in right buttocks. Had injection a year prior to lung cancer diagnosis--helped radicular pain but has had persistent pain in right buttock since. Has improved. Performs exercises given from PT and does yoga. Derm: Denies rash. Denies jaundice and diffuse pruritis. Heme: Denies unusual bleeding and unexplained bruising. Psych: Normal mood. Social: Quit smoking ~50 years ago. Rare alcohol. Two children. Daughter in [place] and son in [facility]. Family: Mother--?stomach cancer. Sister-- age 12 from acute leukemia. PHYSICAL EXAM: Vitals: Blood pressure 148/79, pulse (!) 55, temperature 37.1 C (98.7 F), height 177 cm (5' 9.69), weight 67.4 kg (148 lb 8 oz), SpO2 99 %. Well-appearing and in no acute distress. EYES: Sclerae are anicteric bilaterally. LYMPHATIC: There is no palpable cervical or supraclavicular adenopathy. RESPIRATORY: VATS insertion sites and tube sites well healed. She has audible breath sounds to the base of the right lung field. CARDIOVASCULAR: Rhythm is regular. Soft systolic murmur best heard at the left sternal border. ABDOMEN: The abdomen is nondistended. No organomegaly. No tenderness. Extremities: No swelling or edema. SKIN: No jaundice or rash. No petechiae. NEUROLOGIC: mechanical lead II-XII are grossly intact. No focal motor weakness. LABS: Component Latest Ref Rng & Units 01/05/2023 WBC 3.70 - 11.00 k/uL 4.97 RBC 3.90 - 5.20 m/uL 4.35 Hemoglobin 11.5 - 15.5 g/dL 13.0 Hematocrit 36.0 - 46.0 % 39.0 MCV 80.0 - 100.0 fL 89.7 MCH 26.0 - 34.0 pg 29.9 MCHC 30.5 - 36.0 g/dL 33.3 RDW-CV 11.5 - 15.0 % 13.2 Platelet Count 150 - 400 k/uL 241 MPV 9.0 - 12.7 fL 8.9 (L) Neut% % 62.0 Abs Neut (ANC) 1.45 - 7.50 k/uL 3.08 Lymph% % 30.2 Abs Lymph 1.00 - 4.00 k/uL 1.50 [place]% % 6.6 Abs [place] <0.87 k/uL 0.33 Eosin% % 0.4 Abs Eosin <0.46 k/uL <0.03 Baso% % 0.6 Abs Baso <0.11 k/uL 0.03 Immature Gran % % 0.2 IMMATURE GRANS (ABS) <0.10 k/uL <0.03 NRBC /100 WBC 0.0 Absolute nRBC <0.01 k/uL <0.01 DTYPE Auto Protein, Total 6.3 - 8.0 g/dL 6.7 Albumin 3.9 - 4.9 g/dL 4.1 Calcium 8.5 - 10.2 mg/dL 8.5 Bilirubin, Total 0.2 - 1.3 mg/dL 0.3 Alkaline Phosphatase 34 - 123 U/L 54 AST 13 - 35 U/L 19 ALT 7 - 38 U/L 22 Glucose 74 - 99 mg/dL 109 (H) BUN 7 - 21 mg/dL 19 Creatinine 0.58 - 0.96 mg/dL 0.64 Sodium 136 - 144 mmol/L 138 Potassium 3.7 - 5.1 mmol/L 3.8 Chloride 97 - 105 mmol/L 102 CO2 22 - 30 mmol/L 27 Anion Gap 9 - 18 mmol/L 9 eGFR >=60 mL/min/1.73m 92 ASSESSMENT/PLAN: (C34.90) Malignant neoplasm of unspecified part of unspecified bronchus or lung (HCC) (primary encounter diagnosis) Assessment: -The patient is a 77 year-old female with a history of light smoking who quit 50 years ago. Underwent evaluation for a dry, persistent cough and was found to have a mass in the right upper lobe which on biopsy proved to be adenocarcinoma. -cT3 cN0 M0 clinical stage IIB non-small cell lung cancer, adenocarcinoma of the right upper lobe -EGFR mutation and ALK translocation negative. -PD-L1 negative. -Received neoadjuvant chemo/immunotherapy. -ypT1a pN0 -Adjuvant therapy was not indicated. -I personally reviewed CT images and again with patient and independently verified and agreed with the radiologist's findings. Reviewed with her. The sclerotic lesion at T10 was previously biopsied and was negative for malignancy. Plan: -PET scan. -Potential bronchoscopy with biopsy if PET scan suggest recurrent malignancy. (R07.9) Chest pain, unspecified type (R01.1) Cardiac murmur Assessment: -Non-anginal chest pain. -History of intraatrial shunt L to R. -EKG performed in the office today. Reviewed by me. No change in waveforms when compared to previous EKGs. 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 Plan: -Echocardiogram. -Cardiology evaluation. -Trial of PPI at HS--advised omeprazole OTC 20 mg. Portions of this documentation were copied and pasted from previous office visit notes in order to provide a cohesive continuity of the history. The note has been reviewed and edited and updated as necessary. I spent a total of 45 minutes on the date of the service which included preparing to see the patient, [id number] patient care, completing clinical documentation, obtaining and/or reviewing separately obtained history, performing a medically appropriate examination, counseling and educating the patient/family/caregiver, ordering medications, tests, or procedures, independently interpreting results (not separately reported), and communicating results to the patient/family/caregiver. Rohan Alvarez DO documented in this encounter [facility] 01-05-2023 History of Present illness Narrative Radiology Service Progress Note DATE OF SERVICE: January 05, 2023 TIME: 3:22 PM PATIENT IDENTITY VERIFICATION COMPLETED USING TWO (2) STANDARD IDENTIFIERS: Name and Date of confirmed by patient verbally. FALL SCREENING: Has the patient had 2 falls in the last year or 1 fall with injury or currently using an Ambulatory Assistive Device (Walker, Cane, Wheelchair, Crutches, etc.)? No PATIENT GENDER DATA: Female. status: : No status: NO. PATIENT RELEVANT IMPLANT DATA REVIEWED: Yes ALLERGIES: Reviewed and unchanged CONTRAST ALLERGY: NO. EXAM: CT -CONTRAST INDUCED NEPHROPATHY RISK FACTORS: Patient age > 60 years CREATININE: Creatinine Date Value Ref Range Status 01/05/2023 0.64 0.58 - 0.96 mg/dL Final 10/03/2022 0.66 0.58 - 0.96 mg/dL Final 07/11/2022 0.66 0.58 - 0.96 mg/dL Final Estimated Glomerular Filtration Rate Date Value Ref Range Status 01/05/2023 92 >=60 mL/min/1.73m Final Comment: Estimated Glomerular Filtration Rate (eGFR) is calculated using the 2020 CKD-EPI creatinine equation. This equation utilizes serum creatinine, sex, and age as parameters. The creatinine assay has traceable calibration to isotope dilution-mass spectrometry. Refer to KDIGO guidelines for clinical interpretation. In patients with unstable renal function, e.g. those with acute kidney injury, the eGFR may not accurately reflect actual GFR. eGFR- Date Value Ref Range Status 11/06/2016 >60 Final P.O.C.T. RESULTS: POC done: Yes, See Lab Tab January 05, 2023 TREATMENT: N/A PERIPHERAL IV DATA: Ambulatory: A peripheral IV was started in the Left antecubital site with a Angio cath: 22 gauge. RADIOLOGY DEPARTMENT: CT; Exam(s) Completed: Chest SIGNATURE: RT Naida(R) PATIENT NAME: Lidia Ortiz DATE: January 05, 2023 TIME: 3:22 PM documented in this encounter [facility] 10-03-2022 Miscellaneous Notes Pt. Notified of chest x-ray results. Emy Finnegan LPN Can let her know the chest x-ray showed expected postsurgical changes with no evidence of cancer. Rohan Alvarez DO documented in this encounter [facility] 10-03-2022 History of Present illness Narrative Radiology Service Progress Note PATIENT NAME: Lidia Ortiz DATE OF SERVICE: October 03, 2022 TIME: 12:38 PM PATIENT IDENTITY VERIFICATION COMPLETED USING TWO (2) IDENTIFIERS: Name and Date of confirmed by patient verbally. FALL SCREENING: Has the patient had 2 falls in the last year or 1 fall with injury or currently using an Ambulatory Assistive Device (Walker, Cane, Wheelchair, Crutches, etc.)? No PATIENT GENDER DATA: Female. status: : No status: NO. PATIENT RELEVANT IMPLANT DATA REVIEWED: Yes RADIOLOGY DEPARTMENT: General X-ray: Exam(s) Completed: Chest X-Ray PERIPHERAL IV DATA: Not applicable SIGNED BY: RT Bruna(R) October 03, 2022 12:38 PM documented in this encounter [facility] 10-03-2022 History of Present illness Narrative Oncologic problem(s): 1) cT3 cN0 M0 clinical stage IIB non-small cell lung cancer, adenocarcinoma of the right upper lobe. HPI: The patient is a 77-year-old female who has a past medical history significant for type 2 diabetes (metformin), hypertension and hyperlipidemia. She recently underwent evaluation for a cough which has been persistent for about 3 months. She had no complaints of dyspnea fever or wheezing. A CT of the chest was performed on 01/24/2022. There was a 3.5 x 3.8 x 4.3 cm mass in the right upper lobe. This abutted the right hilar region. There was no demonstrated pleural abnormality. Mediastinum and hilar regions appeared normal otherwise. There were multilevel degenerative changes of thoracic spine with a 1.4 cm area of sclerosis observed in the posterior aspect of the T9 or T12 vertebrae at the level of the pedicle on the right side for which correlation with bone scan was recommended. There was a 1 cm cyst in the medial inferior aspect of the right lobe of the liver. Patient underwent a CT-guided right lung biopsy on 02/06/2022. Pathology: -Non-small cell carcinoma, favor adenocarcinoma consistent with lung primary. Specimen was positive for TTF-1, CK7, CK 8 in rare cells that showed positivity for CK20. Complicated by pneumothorax that required chest tube. She underwent MRI of the brain which demonstrated no evidence of metastatic disease. PET scan with results noted. She also had an MRI of the thoracic spine. Images have been loaded. Report is pending. She underwent CT-guided biopsy of the suspicious lesion in T10 vertebral body on 03/09/2022. Pathology demonstrated fragments of sclerotic bone with bone marrow fibrosis and edema and no evidence of carcinoma. She underwent surgical evaluation at [facility]. She is scheduled for mediastinal lymph node sampling on 03/29. Previous therapy: 1) Neoadjuvant carboplatin, pemetrexed and nivolumab. Underwent right VATS, right middle lobectomy, right lower lung wedge resection, mediastinal lymphadenectomy and intercostal nerve block on 06/26/2022. Presents for ongoing oncologic management. Interim history: Had been on lisinopril for several years. Developed dry cough few weeks ago. Saw PCP. Lisinopril was stopped. Cough tapered and, over last 2 days, significantly less. PMH, medications and allergies personally reviewed by me today. Any changes documented in appropriate section. ROS: Constitutional: Denies episodes of fever and night sweats. Not significantly fatigued. Normal appetite. Neuro: Denies BARAH[place], vertigo, dizziness and imbalance. Denies symptoms of neuropathy. HEENT: No recent change in voice, vision or hearing. Resp: See above. CVS: Denies exertional chest pain, PND, orthopnea and LE edema. GI: Denies dysgeusia. Denies symptoms of stomatitis. Denies dysphagia and odynophagia. Denies reflux, n/v, change in bowel habits and abdominal pain. : Denies dysuria or gross hematuria. No symptoms of bladder outlet obstruction. Endo: Denies hot flashes. Denies polyuria and polydipsia. Denies heat and cold intolerance. Musculoskeletal: Endorses today has had sciatica for years deep in right buttocks. Had injection a year prior to lung cancer diagnosis--helped radicular pain but has had persistent pain in right buttock since. Has improved. Performs exercises given from PT and does yoga. Derm: Denies rash. Denies jaundice and diffuse pruritis. Heme: Denies unusual bleeding and unexplained bruising. Psych: Normal mood. Social: Quit smoking ~50 years ago. Rare alcohol. Two children. Daughter in [place] and son in [facility]. Family: Mother--?stomach cancer. Sister-- age 12 from acute leukemia. PHYSICAL EXAM: Vitals: Blood pressure 152/90, pulse 65, temperature 36.6 C (97.8 F), temperature source Temporal, weight 64 kg (141 lb), SpO2 97 %. Well-appearing and in no acute distress. EYES: Sclerae are anicteric bilaterally. LYMPHATIC: There is no palpable cervical or supraclavicular adenopathy. RESPIRATORY: VATS insertion sites and tube sites well healed. She has audible breath sounds to the base of the right lung field. CARDIOVASCULAR: Rhythm is regular. ABDOMEN: The abdomen is nondistended. No organomegaly. No tenderness. Extremities: No swelling or edema. SKIN: No jaundice or rash. No petechiae. NEUROLOGIC: mechanical lead II-XII are grossly intact. No focal motor weakness. LABS: Component Latest Ref Rng & Units 10/03/2022 WBC 3.70 - 11.00 k/uL 5.46 RBC 3.90 - 5.20 m/uL 4.45 Hemoglobin 11.5 - 15.5 g/dL 13.5 Hematocrit 36.0 - 46.0 % 40.5 MCV 80.0 - 100.0 fL 91.0 MCH 26.0 - 34.0 pg 30.3 MCHC 30.5 - 36.0 g/dL 33.3 RDW-CV 11.5 - 15.0 % 11.9 Platelet Count 150 - 400 k/uL 253 MPV 9.0 - 12.7 fL 9.0 Neut% % 64.9 Abs Neut (ANC) 1.45 - 7.50 k/uL 3.54 Lymph% % 26.2 Abs Lymph 1.00 - 4.00 k/uL 1.43 [place]% % 7.5 Abs [place] <0.87 k/uL 0.41 Eosin% % 0.5 Abs Eosin <0.46 k/uL 0.03 Baso% % 0.7 Abs Baso <0.11 k/uL 0.04 Immature Gran % % 0.2 IMMATURE GRANS (ABS) <0.10 k/uL <0.03 NRBC /100 WBC 0.0 Absolute nRBC <0.01 k/uL <0.01 DTYPE Auto Protein, Total 6.3 - 8.0 g/dL 6.8 Albumin 3.9 - 4.9 g/dL 4.3 Calcium 8.5 - 10.2 mg/dL 9.5 Bilirubin, Total 0.2 - 1.3 mg/dL 0.2 Alkaline Phosphatase 34 - 123 U/L 66 AST 13 - 35 U/L 17 ALT 7 - 38 U/L 16 Glucose 74 - 99 mg/dL 125 (H) BUN 7 - 21 mg/dL 18 Creatinine 0.58 - 0.96 mg/dL 0.66 Sodium 136 - 144 mmol/L 137 Potassium 3.7 - 5.1 mmol/L 3.7 Chloride 97 - 105 mmol/L 101 CO2 22 - 30 mmol/L 29 Anion Gap 9 - 18 mmol/L 7 (L) eGFR >=60 mL/min/1.73m 91 ASSESSMENT/PLAN: (D49.1) Neoplasm of lung Assessment: -The patient is a 77 year-old female with a history of light smoking who quit 50 years ago. Underwent evaluation for a dry, persistent cough and was found to have a mass in the right upper lobe which on biopsy proved to be adenocarcinoma. -cT3 cN0 M0 clinical stage IIB non-small cell lung cancer, adenocarcinoma of the right upper lobe -EGFR mutation and ALK translocation negative. -PD-L1 negative. -Previously reviewed pathology with the patient and her . She had a very nice response to neoadjuvant therapy. -Adjuvant therapy was not indicated. Plan: -CXR today. -CT chest in 3 months as scheduled. Portions of this documentation were copied and pasted from previous office visit notes in order to provide a cohesive continuity of the history. The note has been reviewed and edited and updated as necessary. During this patient visit I have spent approximately 10 minutes out of 20 in counseling regarding test results and coordinating care. Rohan Alvarez DO documented in this encounter [facility] 09-19-2022 Miscellaneous Notes Spoke with pt. Informed she should be further evaluated by her PCP at this time. F/U with dr. Alvarez as scheduled. Pt. Voiced understanding. Emy Finnegan LPN I think she needs further assessment at this time by her PCP. We do not have any information on whether or not the cough is productive, wheezing or fever. Rohan Alvarez DO Spoke with pt. Stated her PCP changed the Lisinopril to Losartan around 10 days ago. Has noticed some improvement in the cough but she thought it should be totally gone. Instructed to contact her PCP office and let him know there is some improvement but couple not totally resolved and if she should be giving it more time. She is scheduled for 3 month f/u with labs, chest x-ray , and O.V. on 10/03. Does this need to be moved any sooner? Emy Finnegan LPN Patient called stating she has had cough for 5 weeks. She said PCP switched her blood pressure medicine hoping that would help. Patient states it has not and stated last time she had a cough like this it ended up being lung cancer. She is requesting to speak to clinical. documented in this encounter [facility] 07-20-2022 Miscellaneous Notes [facility] Contact Center Inbound Phone Encounter DATE of SERVICE: 07/20/2022 TIME of SERVICE: 9:12 AM Status: [facility] Service/Provider: Thoracic Surgery Eduardo Lehman M.D. Reason for call: Pain Contact information: [phone] Resolution: Reinforced education Comments: Called in saying that ribs are sore and wakes her up at night. She was taking Tylenol, Ibuprofen, and then at night a pain pill, stopped all that in the last few days. She is only out 3 weeks post op. I suggested that she continue to take her Tylenol and Ibuprofen and take the pain pill at night for the full 4 weeks post surgery to help with inflammation and soreness since it was working prior to her stopping the pills in the last few days. After 4 weeks if she is having problems to call us back. She did say her incision and CT sites are fine. Has a little swollen area on right side, that has been there, she just noticed it more since off of Ibuprofen. She stated understanding. Delmis Hoover RN Date of Resolution: 07/20/2022 Time of Resolution 9:12 AM documented in this encounter [facility] 07-13-2022 Miscellaneous Notes Spoke with pt. Given information concerning Dr. Alvarez correspondence with oncologist at [facility] who agreed that she didn't need any further chemotherapy or immunotherapy. Surveillance as scheduled. Pt. Voiced understanding. Emy Finnegan LPN Can let her know that I corresponded with one of the lung cancer medical oncologist at [facility]. He agreed that she does not need any further chemotherapy or immunotherapy. We will plan for surveillance as scheduled with office visit and chest x-ray in [address] scan in 6 months. Rohan Alvarez DO documented in this encounter [facility] 07-11-2022 History of Present illness Narrative Oncologic problem(s): 1) cT3 cN0 M0 clinical stage IIB non-small cell lung cancer, adenocarcinoma of the right upper lobe. HPI: The patient is a 77-year-old female who has a past medical history significant for type 2 diabetes (metformin), hypertension and hyperlipidemia. She recently underwent evaluation for a cough which has been persistent for about 3 months. She had no complaints of dyspnea fever or wheezing. A CT of the chest was performed on 01/24/2022. There was a 3.5 x 3.8 x 4.3 cm mass in the right upper lobe. This abutted the right hilar region. There was no demonstrated pleural abnormality. Mediastinum and hilar regions appeared normal otherwise. There were multilevel degenerative changes of thoracic spine with a 1.4 cm area of sclerosis observed in the posterior aspect of the T9 or T12 vertebrae at the level of the pedicle on the right side for which correlation with bone scan was recommended. There was a 1 cm cyst in the medial inferior aspect of the right lobe of the liver. Patient underwent a CT-guided right lung biopsy on 02/06/2022. Pathology: -Non-small cell carcinoma, favor adenocarcinoma consistent with lung primary. Specimen was positive for TTF-1, CK7, CK 8 in rare cells that showed positivity for CK20. Complicated by pneumothorax that required chest tube. She underwent MRI of the brain which demonstrated no evidence of metastatic disease. PET scan with results noted. She also had an MRI of the thoracic spine. Images have been loaded. Report is pending. She underwent CT-guided biopsy of the suspicious lesion in T10 vertebral body on 03/09/2022. Pathology demonstrated fragments of sclerotic bone with bone marrow fibrosis and edema and no evidence of carcinoma. She underwent surgical evaluation at [facility]. She is scheduled for mediastinal lymph node sampling on 03/29. Current therapy: 1) Neoadjuvant carboplatin, pemetrexed and nivolumab. Presents for ongoing oncologic management. Interim history: Since last seen, underwent right VATS, right middle lobectomy, right lower lung wedge resection, mediastinal lymphadenectomy and intercostal nerve block on 06/26/2022. Pathology: -Reviewed. PMH, medications and allergies personally reviewed by me today. Any changes documented in appropriate section. ROS: Constitutional: Denies episodes of fever and night sweats. Not significantly fatigued. Normal appetite. Neuro: Denies [place], vertigo, dizziness and imbalance. Denies symptoms of neuropathy. HEENT: No recent change in voice, vision or hearing. Resp: See above. CVS: Denies exertional chest pain, PND, orthopnea and LE edema. GI: Denies dysgeusia. Denies symptoms of stomatitis. Denies dysphagia and odynophagia. Denies reflux, n/v, change in bowel habits and abdominal pain. : Denies dysuria or gross hematuria. No symptoms of bladder outlet obstruction. Endo: Denies hot flashes. Denies polyuria and polydipsia. Denies heat and cold intolerance. Musculoskeletal: Arthritic pain of both feet. Derm: Denies rash. Denies jaundice and diffuse pruritis. Heme: Denies unusual bleeding and unexplained bruising. Psych: Normal mood. Social: Quit smoking ~50 years ago. Rare alcohol. Two children. Daughter in [place] and son in [facility]. Family: Mother--?stomach cancer. Sister-- age 12 from acute leukemia. PHYSICAL EXAM: Vitals: Blood pressure 147/86, pulse (!) 58, temperature 36.5 C (97.7 F), temperature source Temporal, weight 65.1 kg (143 lb 8 oz), SpO2 99 %. Well-appearing and in no acute distress. EYES: Sclerae are anicteric bilaterally. LYMPHATIC: There is no palpable cervical or supraclavicular adenopathy. RESPIRATORY: VATS insertion sites and tube sites appear to be healing very well without any sign of infection. She has audible breath sounds to the base of the right lung field. CARDIOVASCULAR: Rhythm is regular. ABDOMEN: The abdomen is nondistended. No organomegaly. No tenderness. Extremities: No swelling or edema. SKIN: No jaundice or rash. No petechiae. NEUROLOGIC: mechanical lead II-XII are grossly intact. No focal motor weakness. ASSESSMENT/PLAN: (D49.1) Neoplasm of lung Assessment: -The patient is a 76-year-old female with a history of light smoking who quit 50 years ago. Recently underwent evaluation for a dry, persistent cough and was found to have a mass in the right upper lobe which on biopsy proved to be adenocarcinoma. -KPS is 90%. -cT3 cN0 M0 clinical stage IIB non-small cell lung cancer, adenocarcinoma of the right upper lobe -EGFR mutation and ALK translocation negative. -PD-L1 negative. -Reviewed pathology with the patient and her . She had a very nice response to neoadjuvant therapy. -Discussed with her that I am not aware of any data suggesting that further adjuvant therapy would be of benefit. We will seek opinion from [facility] specialist on this however. Plan: -OV with labs and chest x-ray in 3 months. -Plan CT chest in 6 months. Portions of this documentation were copied and pasted from previous office visit notes in order to provide a cohesive continuity of the history. The note has been reviewed and edited and updated as necessary. During this patient visit I have spent approximately 10 minutes out of 20 in counseling regarding test results and coordinating care. Rohan Alvarez DO documented in this encounter [facility] 06-23-2022 History of Present illness Narrative I had the pleasure of seeing Lidia Ortiz back in the office today for a scheduled pre-anesthesia evaluation in preparation for her right vats middle lobectomy scheduled for 06/26/22. We have discussed the conduct of the operation, the risks/benefits and the expected post-op course. After our discussion, the patient signed her informed consent. I have spent 20 minutes in counseling and coordination of care for this patient. I spent more than 50% of the visit face to face with the patient counseling on treatment options and the subsequent plan. Eduardo Lehman MD CHART COPY DO NOT DISCARD . Patient here today for TCI visit. . Surgery right vats middle lobectomy scheduled for 06/26/2022Sunday. . Meds allergies reviewed. Latex Allergy: No Anticoag:MVI/Supplements-last dose 06/17/2022 Medport: No Preoperative instructions; NPO after midnight night prior to surgery, Listerine after brushing teeth and Hibiclens Shower and Hibiclens Shower. Patient verbalized understanding of instructions. . Last clinic note 06/02/2022 per Eduardo Lehman M.D. Ms. Ortiz returns today for a scheduled follow up evaluation following completion of her induction therapy for a clinical stage II lung cancer. Her restaging scans reveal reduction in the size of the primary mass with some enlargement of her mediastinal node as well as two small lung nodules which could both also be nodes. The changes in her spine are noted, this lesion was formerly biopsied and noted to be benign. Given her favorable response to induction, we have recommended proceeding with resection. We have discussed the conduct of the operation, risks/benefits and the expected postop course. Given the location of the lesion, a bilobectomy may be necessary. . Today's visit 06/23/2022: CCT: 06/02/2022 IMPRESSION: 1. The right upper lobe mass has decreased in size since the prior examination in keeping with treatment response. However, there has been increase in size of an oblong nodule along the airway in right upper lobe and a subpleural nodule in right lower lobe. These nodules are indeterminate. I note these nodules did not demonstrate metabolic activity on the CT PET from 02/21/2022. 2. Increase in size of multiple lymph nodes in the mediastinum and in right hilum. While these lymph nodes could be reactive in etiology, lymph node metastases are possible. Recommend attention on follow-up. 3. A sclerotic lesion with central lucency in T10 vertebra has increased in size. There is increasing sclerosis could be related to treatment effect. . PFT: 02/24/2022 FEV1 (L) 2.49 1.77 3.17 2.09 83 2.10 0 DLCOunc (ml/min/mmHg) 22.41 16.24 28.57 24.63 109 6MW: none Cardiac Studies: Echo 06/02/2022 CONCLUSIONS: - Exam indication: Cardiotoxicity baseline - The left ventricle is normal in size. Left ventricular systolic function is normal. EF = 65 5% (visual est.) - The right ventricle is normal in size. Right ventricular systolic function is normal. - Interatrial shunt (predominant L-> R) flow by color Doppler as seen in clips #29, 31, 79. Patient declined IV access for a saline study. - The patient has not had a prior CC echocardiographic exam for comparison. EK06/23/2022-Prelim Diagnosis: NORMAL SINUS RHYTHM COMPLETE RIGHT BUNDLE BRANCH BLOCK LEFT ANTERIOR FASCICULAR BLOCK BIFASCICULAR BLOCK CANNOT EXCLUDE INFERIOR MYOCARDIAL INFARCTION (MASKED BY FASCICULAR BLOCK?) , AGE UNDETERMINED ABNORMAL ECG Clinical Staging: T: 3 N: 0 M: 0 G: NA Risk, benefits, and alternatives discussed per Eduardo Lehman M.D. H&P 06/23/[address] Lehman Films CCT . Micheal Pelayo RN COMPLETE REVIEW OF SYSTEMS Constitutional: Negative for Malaise, fever wt loss HEENT: Negative for frequent or significant headaches, No changes in hearing or vision, no nose bleeds or other nasal problems Resp: Negative for cough, wheezing, or shortness of breath Cardiovascular: Negative for chest pain, leg swelling or palpitations GI: Negative for abdominal discomfort, blood in stools or black stools or change in bowel habits : No history of dysuria, frequency, or incontinence Endo: Negative for cold or heat intolerance, polyuria, polydipsia and goiter Heme/Lymph: Negative for prolonged bleeding, bruising easily or swollen nodes Neurologic: No history or headaches, syncope, paralysis, seizures or tremors Integumentary: Negative for lesions, rash, and itching. Additional systems reviewed: Pain siactic PHYSICAL EXAM BP 141/85 Pulse 68 Temp (Src) 98.5 (Oral) Resp 18 Ht 5' 10 (1.78m) Wt 148 lb 14.4 oz (67.5kg) SpO2 98% BMI 21.37 kg/(m^2). Constitutional: Well developed, Well nourished , and No acute distress HEENT: EOM's intact and Good dentition Resp: Clear Cardiovascular: Regular rate & rhythm and S1, S2 normal GI: Soft, Non-tender, and Non-distended Integumentary: Warm and No rash on chest, arms or legs Musculoskeletal: No deformities Neurological/Psychiatric: Oriented to time, place & person , Alert, Steady gait , and No gross focal neurologic deficits documented in this encounter [facility] 06-23-2022 Nurse Note PATIENT EDUCATION The following was evaluated: Motivation To Learn: Interested Family/Significant Other Support: High - Very involved in pt care Cognitive Ability: Alert and oriented Patient Learns Best By: Multiple Methods The Following Influencing Factors Were Barriers To This Education Session: No barriers Thread Roller Present: Not Applicable The Following Physical Limitations Were Barriers To This Education Session: None Instruction Provided To: Patient & Family Discipline: Nursing Learning Topic: Pre-op Instructions given Patient Evaluation: Verbalizes understanding Follow Up Plan: Patient/Family will call us with questions Supplemental Material Given: TCI Patient Instructions: Thoracic Surgery Teach completed, topic: Martín Cartagena & current visitation policy & restrictions Instructed By Shantelle Rojas RN. In Department of THORACIC CLINIC. documented in this encounter [facility] 06-23-2022 History of Present illness Narrative Images from the original note were not included. Cardiothoracic Anesthesiology Preoperative Assessment Service Date: 06/23/2022 Service Time: 2:50 PM Primary Care Physician: Mimi Quach MD Subjective Scheduled procedure: Lobectomy Surgeon: Eduardo Lehman Scheduled date: 06/26/2022 HPI: 1) cT3 cN0 M0 clinical stage IIB non-small cell lung cancer, adenocarcinoma of the right upper lobe. HPI: The patient is a 76-year-old female who has a past medical history significant for type 2 diabetes (metformin), hypertension and hyperlipidemia. She recently underwent evaluation for a cough which has been persistent for about 3 months. She had no complaints of dyspnea fever or wheezing. A CT of the chest was performed on 01/24/2022. There was a 3.5 x 3.8 x 4.3 cm mass in the right upper lobe. This abutted the right hilar region. There was no demonstrated pleural abnormality. Mediastinum and hilar regions appeared normal otherwise. There were multilevel degenerative changes of thoracic spine with a 1.4 cm area of sclerosis observed in the posterior aspect of the T9 or T12 vertebrae at the level of the pedicle on the right side for which correlation with bone scan was recommended. There was a 1 cm cyst in the medial inferior aspect of the right lobe of the liver. She is now s/p chemo induction with planned lobectomy possibly bilobectomy with Dr. Lehman on 06/26/2022. She has no complaints today. Review blood transfusion consented - COVID-19 Immunization Status Overdue - COVID-19 VACCINE (5 - Booster) Overdue since 01/16/2022 09/15/2021 Imm Admin: COVID-19 vaccine, age 12+ yr ([employer] - PURPLE TOP) 02/11/2021 Outside Immunization: COVID-19, mRNA, LNP-S, PF, 100 mcg/0.5mL dose or 50 mcg/0.25mL dose 01/21/2021 Imm Admin: COVID-19 vaccine, full dose (MODERNA) Only the first 3 history entries have been loaded, but more history exists. The patient has the following: ACTIVE PROBLEM LIST Gross Hematuria Calculus of Kidney Hypercholesterolemia Malignant Neoplasm of Upper Lobe of Right Lung (Hcc) Preoperative Examination Cough Diabetes Type 2, Controlled (Hcc) PAST MEDICAL HISTORY Diagnosis Date Diabetes type 2, controlled (HCC) Diverticulosis of colon (without mention of hemorrhage) Essential hypertension Hypercholesterolemia Rosacea PAST SURGICAL HISTORY Procedure Laterality Date COLONOSCOPY FLX DX W/COLLJ SPEC WHEN PFRMD 2008 Colonoscopy COLONOSCOPY FLX DX W/COLLJ SPEC WHEN PFRMD 04/04/2011 Colonoscopy COLONOSCOPY FLX DX W/COLLJ SPEC WHEN PFRMD 10/23/2016 Colonoscopy EXC/DSTRJ LINGUAL TONSIL ANY METHOD SPX PAST SURGICAL HISTORY OF 2005 hysterectomy for prolapsed uterus PAST SURGICAL HISTORY OF approx 1989 left upper arm melanoma FAMILY HISTORY Problem Relation Age of Onset Diabetes Mother Hyperlipidemia Mother Cancer Mother Lymphoma Hypertension Father Macular Degen Father Hyperlipidemia Sister Heart Attack Brother Diabetes Maternal Grandfather Stroke Paternal Grandmother Social History Tobacco Use Smoking status: Former Smoker Years: 5.00 Types: Cigarettes Quit date: 03/22/1972 Years since quittin.2 Smokeless tobacco: Never Used Tobacco comment: social smoker Vaping Use Vaping Use: Never used Substance Use Topics Alcohol use: Yes Comment: ocas wine Drug use: No Prior to Admission medications as of 06/02/22 1449 Medication Sig Last Dose Taking mupirocin (BACTROBAN) 2 % ointment Apply a small amount in each nostril using a cotton swab twice the day before surgery and once the morning of surgery. iv contrast (will be provided with radiology test) CT Chest W -Inject, intravenously, once for 1 dose.No IV access, insert saline lock prior to the beginning of sedation, infusion, injection of imaging exam. Discontinue saline lock post exam. If Pt. has a central line or IVAD, may access for administration according to line specific nursing protocol. Once exam is complete flush line and de-access according to line specific nursing protocol in the CT contrast administration guidelines link. promethazine (PHENERGAN) 25 mg tablet Take 1 tablet by mouth every 6 hours as needed (For chemotherapy induced nausea). FOR NAUSEA Patient not taking: Reported on 06/02/2022 folic acid 1 mg tablet Take 1 tablet by mouth once daily. dexAMETHasone (DECADRON) 4 mg tablet Take 1 tablet by mouth twice daily with meals. the day prior to and the day following each chemotherapy treatment. Patient not taking: Reported on 06/02/2022 alendronate (FOSAMAX) 70 mg tablet Take 70 mg by mouth one time a week. rosuvastatin 5 mg cpSP Take 5 mg by mouth once daily. lisinopril (ZESTRIL, PRINIVIL) 20 mg tablet Take 20 mg by mouth once daily. metFORMIN ER (GLUCOPHAGE XR) 500 mg 24 hr tablet Take 500 mg by mouth twice daily. therapeutic multivitamin ORAL tablet Take 1 tablet by mouth once daily. Ca Sicl-Z5-Ccae-Chndr-Sy Is-Br (ENVGNBV-O0-HCVKTNVT-CHONDROIT) [phone] cq-dfte-pi-mg ORAL Tab Take by mouth. Take one(1) tablet daily. Coenzyme D65-Ziivfgq E (COQ10 SG 100) 100-100 mg-unit ORAL Cap Take by mouth. Take one(1) capsule daily. METROLOTION 0.75 % bid face No medication comments found. ALLERGIES Allergen Reactions Demerol [Meperidine* Lactose Other: See Comments Bloating and abdominal pain Objective Pain Assessment: Vitals: There were no vitals taken for this visit. Diagnostic tests reviewed for today's visit: Lab Value Units Date High Low HB 11.8 g/dL 06/23/2022 15.5 11.5 HCT 35.7 % 06/23/2022 46.0 36.0 WBC 5.05 k/uL 06/23/2022 11.00 3.70 PLT 200 k/uL 06/23/2022 400 150 NA 137 mmol/L 05/16/2022 144 136 K 3.6 mmol/L 05/16/2022 5.1 3.7 GLUC 174 mg/dL 05/16/2022 99 74 BUN 18 mg/dL 05/16/2022 21 7 CREAT 0.57 mg/dL 05/16/2022 0.96 0.58 CREAT 0.70 mg/dL 06/02/2022 1.4 0.7 PTSEC 11.1 sec 03/07/2022 13.0 9.7 INR 1.1 no uni* 03/07/2022 1.3 0.9 APTT No results within date range. ALT 30 U/L 05/16/2022 38 7 AST 25 U/L 05/16/2022 35 13 TBILI 0.2 mg/dL 05/16/2022 1.3 0.2 TSH 0.464 mIU/L 05/16/2022 4.200 0.270 Lab Value Units Date High Low HCGQT No results within date range. UHCG No results within date range. HCG, BODY* No results within date range. Lab Value Units Date High Low ABORHD No results within date range. ABSCREEN No results within date range. Hemoglobin A1C (%) Date Value 04/04/2022 6.8 Recent Results (from the past 8760 hour(s)) ECG COMPLETE Collection Time: 06/23/22 1:57 PM Impression NORMAL SINUS RHYTHM COMPLETE RIGHT BUNDLE BRANCH BLOCK LEFT ANTERIOR FASCICULAR BLOCK BIFASCICULAR BLOCK CANNOT EXCLUDE INFERIOR MYOCARDIAL INFARCTION (MASKED BY FASCICULAR BLOCK?) , AGE UNDETERMINED ABNORMAL ECG CT CHEST W IVCON Collection Time: 06/02/22 2:16 PM Impression IMPRESSION: 1. The right upper lobe mass has decreased in size since the prior examination in keeping with treatment response. However, there has been increase in size of an oblong nodule along the airway in right upper lobe and a subpleural nodule in right lower lobe. These nodules are indeterminate. I note these nodules did not demonstrate metabolic activity on the CT PET from 02/21/2022. 2. Increase in size of multiple lymph nodes in the mediastinum and in right hilum. While these lymph nodes could be reactive in etiology, lymph node metastases are possible. Recommend attention on follow-up. 3. A sclerotic lesion with central lucency in T10 vertebra has increased in size. There is increasing sclerosis could be related to treatment effect. Dry Plasterer: PSCB Transcribe Date/Time: Jun 02 2022 2:26P Dictated by : SEBASTIÁN KEENAN MD This examination was interpreted and the report reviewed and electronically signed by: SEBASTIÁN KEENAN MD on Jun 02 2022 2:39PM EST ECHO Collection Time: 06/02/22 12:34 PM Impression CONCLUSIONS: - Exam indication: Cardiotoxicity baseline - The left ventricle is normal in size. Left ventricular systolic function is normal. EF = 65 5% (visual est.) - The right ventricle is normal in size. Right ventricular systolic function is normal. - Interatrial shunt (predominant L-> R) flow by color Doppler as seen in clips #29, 31, 79. Patient declined IV access for a saline study. - The patient has not had a prior CC echocardiographic exam for comparison. * * * Final * * * Assessment No problem-specific Assessment & Plan notes found for this encounter. ANESTHESIA FINDINGS: Intubation History: Significant Anesthesia Considerations: Airway History: Prepared for Surgery: The Following Tests/Procedures Have Been Initiated: Orders Placed This Encounter mupirocin (BACTROBAN) 2 % ointment Sig: Apply a small amount in each nostril using a cotton swab twice the day before surgery and once the morning of surgery. Dispense: 22 g Refill: 0 Order Comments: Supply patient with Q-tips and instruction sheet ASA Class: 4 Planned Anesthetic: general and regional I - PHYSICAL EVALUATION AIRWAY Mallampati: II. TM distance: >3 FB. Neck ROM: full ROM without neurological symptoms. Mouth opening: adequate. Short neck: no. Thick neck: no DENTAL Dental findings: teeth intact. II - ANESTHESIA PLAN ASA Score: 4 Anesthetic Plan: general and regional Anesthetic plan additional comments: Patient advised to hold Metformin and Lisinopril on day of surgery . Informed Consent Anesthetic risks, benefits, alternatives, personnel and consent discussed: yes. Patient / Responsible Alliance Party agrees to proceed: yes Patient / Surrogate agrees to blood products: Yes Instructions Given to Patient: Instructions located in the after visit summary. Patient given verbal and written preop instructions and voices comprehension and compliance. Signature: Baljinder Chaves MD Patient Name: Lidia Ortiz Date: June 23, 2022 Time: 2:50 PM Pager/Contact #: Associated attestation - Baljinder Chaves MD - 06/23/2022 4:05 PM EDT Discussed patient's case with Dr Matias and agree with findings as documented.documented in this encounter [facility] 06-02-2022 History of Present illness Narrative Ms. Ortiz returns today for a scheduled follow up evaluation following completion of her induction therapy for a clinical stage II lung cancer. Her restaging scans reveal reduction in the size of the primary mass with some enlargement of her mediastinal node as well as two small lung nodules which could both also be nodes. The changes in her spine are noted, this lesion was formerly biopsied and noted to be benign. Given her favorable response to induction, we have recommended proceeding with resection. We have discussed the conduct of the operation, risks/benefits and the expected postop course. Given the location of the lesion, a bilobectomy may be necessary. I have spent 20 minutes in counseling and coordination of care for this patient. I spent more than 50% of the visit face to face with the patient counseling on treatment options and the subsequent plan. Eduardo Lehman MD Pt here for follow up visit: Malignant neoplasm of upper lobe of right lung Last clinic note 03/22/2022 per Eduardo Lehman M.D. Impression: I had a lengthy discussion with Ms. Ortiz. She has a clinical stage II lung cancer based on imaging. I have recommended an EBUS to complete her staging evaluation and the proceeding with induction chemo/IO as long as the EBUS does not reveal occult IIIB disease. We would then plan to see her back for restaging and preparation for surgical resection. Plan: 1) Await EBUS results 2) Likely induction chemo/IO 3) return following completion of induction for restaging. EBUS Path: 03/29/2022 FINAL DIAGNOSIS A. LYMPH NODE, 11L, EBUS-GUIDED TRANSBRONCHIAL FINE NEEDLE ASPIRATE: Negative for malignant cells. Benign lymphoid sample. B. LYMPH NODE, STATION 7, EBUS-GUIDED TRANSBRONCHIAL FINE NEEDLE ASPIRATE: Negative for malignant cells. Benign lymphoid sample. C. LYMPH NODE, 4R, EBUS-GUIDED TRANSBRONCHIAL FINE NEEDLE ASPIRATE: Negative for malignant cells. Benign lymphoid sample. D. LYMPH NODE, 11RS, EBUS-GUIDED TRANSBRONCHIAL FINE NEEDLE ASPIRATE: Negative for malignant cells. Benign lymphoid sample. The following cell blocks were associated with this case: A1 Cell Block, Alcohol Fixed B1 Cell Block, Alcohol Fixed C1 Cell Block, Alcohol Fixed D1 Cell Block, Alcohol Fixed Electronically signed by Sherry Galvin MD Chemotherapy Completion: 05/16/2022 Today's visit 06/02/2022: BP 169/85 Pulse 63 Temp (Src) 98.1 (Oral) Resp 12 Ht 5' 10 (1.78m) Wt 144 lb (65.3kg) SpO2 98% BMI 20.66 kg/(m^2). Presents with improving nausea (6-10 lb wt. loss) and improving fatigue. 06/02/2022 ECHO CONCLUSIONS: - Exam indication: Cardiotoxicity baseline - The left ventricle is normal in size. Left ventricular systolic function is normal. EF = 65 5% (visual est.) - The right ventricle is normal in size. Right ventricular systolic function is normal. - Interatrial shunt (predominant L-> R) flow by color Doppler as seen in clips #29, 31, 79. Patient declined IV access for a saline study. - The patient has not had a prior CC echocardiographic exam for comparison. 06/02/2022 CCT IMPRESSION: 1. The right upper lobe mass has decreased in size since the prior examination in keeping with treatment response. However, there has been increase in size of an oblong nodule along the airway in right upper lobe and a subpleural nodule in right lower lobe. These nodules are indeterminate. I note these nodules did not demonstrate metabolic activity on the CT PET from 02/21/2022. 2. Increase in size of multiple lymph nodes in the mediastinum and in right hilum. While these lymph nodes could be reactive in etiology, lymph node metastases are possible. Recommend attention on follow-up. 3. A sclerotic lesion with central lucency in T10 vertebra has increased in size. There is increasing sclerosis could be related to treatment effect. Micheal Pelayo, RN documented in this encounter [facility] 06-02-2022 History of Present illness Narrative Radiology Service Progress Note PATIENT NAME: Lidia Ortiz DATE OF SERVICE: June 02, 2022 TIME: 2:11 PM PATIENT IDENTITY VERIFICATION COMPLETED USING TWO (2) IDENTIFIERS: Name and Date of confirmed by patient verbally and Name and Date of confirmed by identification band. FALL SCREENING: Has the patient had 2 falls in the last year or 1 fall with injury or currently using an Ambulatory Assistive Device (Walker, Cane, Wheelchair, Crutches, etc.)? No PATIENT GENDER DATA: Female. status: : No status: NO. PATIENT RELEVANT IMPLANT DATA REVIEWED: Yes RADIOLOGY DEPARTMENT: CT; Exam(s) Completed: Chest PERIPHERAL IV DATA: Site assessment: Clean,Dry and Intact, Site disposition Discontinued SIGNED BY: RT Mike(Chele) June 02, 2022 2:11 PM Radiology Service Progress Note DATE OF SERVICE: June 02, 2022 TIME: 1:48 PM PATIENT WEIGHT: 148LBS PATIENT IDENTITY VERIFICATION COMPLETED USING TWO (2) STANDARD IDENTIFIERS: Name and Date of confirmed by patient verbally and Name and Date of confirmed by identification band. FALL SCREENING: Has the patient had 2 falls in the last year or 1 fall with injury or currently using an Ambulatory Assistive Device (Walker, Cane, Wheelchair, Crutches, etc.)? No PATIENT GENDER DATA: Female. status: : No status: NO. ALLERGIES: Reviewed and unchanged CONTRAST ALLERGY: No EXAM: CT -CONTRAST INDUCED NEPHROPATHY RISK FACTORS: Patient age > 60 years, Diabetic: No and Known Chronic Kidney Disease (CKD) CREATININE: Creatinine Date Value Ref Range Status 05/16/2022 0.57 (L) 0.58 - 0.96 mg/dL Final 04/24/2022 0.68 0.58 - 0.96 mg/dL Final 04/10/2022 0.65 0.58 - 0.96 mg/dL Final Estimated Glomerular Filtration Rate Date Value Ref Range Status 05/16/2022 94 >=60 mL/min/1.73m Final Comment: Estimated Glomerular Filtration Rate (eGFR) is calculated using the 2020 CKD-EPI creatinine equation. This equation utilizes serum creatinine, sex, and age as parameters. The creatinine assay has traceable calibration to isotope dilution-mass spectrometry. Refer to KDIGO guidelines for clinical interpretation. In patients with unstable renal function, e.g. those with acute kidney injury, the eGFR may not accurately reflect actual GFR. eGFR- Date Value Ref Range Status 11/06/2016 >60 Final P.O.C.T. RESULTS: POC done: Yes, See Lab Tab June 02, 2022 TREATMENT: No Hydration needed. IV SITE: Ambulatory: A peripheral IV was started in the Right antecubital site with a Angio cath: 22 gauge. IV SITE APPEARANCE: Clean,Dry and Intact SIGNATURE: Erinn Montalvo RN PATIENT NAME: Lidia Ortiz DATE: June 02, 2022 TIME: 1:48 PM documented in this encounter [facility] 05-18-2022 Miscellaneous Notes Patient scheduled, aware of time and date. If there are any changes to pt's surgery date, pt will contact office to make aware. Yamileth Hope Yes, we should schedule an established complex visit about 3 to 4 weeks after surgery. CBC/CMP/TSH/T4/Cortisol. Rohan Alvarez DO Patient stated she is tired today, the UTI seems to be improving, and the rash remains unchanged and hasn't gotten any worse. Per patient she still has the same red spots on her chest, arms, face, and legs. Patient aware to contact our office with any worsening symptoms, questions, or concerns. Patient aware this nurse will send Dr. Alavrez an update and will call her back if there are further instructions. Patient is scheduled for CT/ECHO/OV with Dr. Lehman on 06/02/22 with tentative surgery planned for 06/12/22. Patient does not have any follow-up appointments with our office, should there be any follow-up appointments scheduled? Thank you. Pamela Loredo RN documented in this encounter [facility] 05-16-2022 Miscellaneous Notes Pt. Notified urinalysis positive for UTI, rx for Cipro sent to [facility] pharmacy. Hold Calcium supplement for the next 3 days while on Cipro. Pt. Voiced understanding. Emy Finnegan LPN Can let her know that today's urinalysis preliminary positive for UTI. Rx for Cipro sent to [facility]. Please advise her to hold her calcium supplement for the next 3 days when she takes the ciprofloxacin. Rohan Alvarez DO documented in this encounter [facility] 05-11-2022 Miscellaneous Notes Patient informed of Dr. Curtis's response, stated understanding. Patient is hesitant to try benadryl because she gets hyper from it. Patient stated she will try one dose to see how it goes, patient will call tomorrow if she has worsening symptoms. Take Benadryl as needed for rash. Call tomorrow if the rash is worse, possible concern for rash. Alley Curtis MD Called and spoke to patient. C2: Carbo/alimta/opdivo 04/25/22 Dx:stage IIB non-small cell lung cancer, adenocarcinoma of the right upper lobe. Patient stated 1 week after her last treatment, patient developed red spots all over her chest, right and left arm, and a couple on my legs that are faded. Per patient the red spots range in size from sesame seeds to smaller than a dime and are mostly flat. Patient stated today, she noticed she has developed a couple of spots on her face; one on the tip of her nose and the other below her left eye. Patient stated the areas start out as a red spot and then dry up and look like dry skin. Patient denies itching, pus/drainage, blisters, or numbness. Patient stated some of the areas she feels a little sensation that they are there but it is not bothersome. Patient denies fever, chills, malaise, headaches, new pains, insect bites, or new lotions/soaps/detergents/skin care products/medications/foods. Patient also denies any other household members having a rash. Patient stated she has tried cortisone cream on the spot on her leg which did help dry it up. Patient has been using a natural goats milk moisturizer on her skin. Patient aware this nurse will speak to provider and will call back with further instructions. Patient stated understanding. Patient stated she will try to send pictures to review but has been unsuccessful. Pamela Loredo RN Patient calling as she has developed lesion like areas on her chest, arms and legs about a week after last treatment on 04/25 and they are not getting any better but worse please advise the patient. documented in this encounter [facility] 04-25-2022 Miscellaneous Notes Went over instructions for gabapentin, patient verbalized understanding. Fiordaliza Grimes LPN Yes, she could take 100 mg 3 times daily or 300 mg 3 times daily depending on which strength she has. If she has 300 mg tablets then I suggest she start by taking 1 at bedtime for 2 nights then increasing to twice daily for days 3 and 4 then increase to 3 times daily day 5 and beyond. Rohan Alvarez DO Patient states she is having Sciatica pain asking if she can take gabapentin that she has at home? She is here today for treatment in room 6 and forgot to ask yesterday at OV. Please advise thanks documented in this encounter [facility] 04-24-2022 Miscellaneous Notes Addended by: ROHAN ALVAREZ on: 04/24/2022 03:14 PM Modules accepted: Orders documented in this encounter [facility] 04-24-2022 History of Present illness Narrative Oncologic problem(s): 1) cT3 cN0 M0 clinical stage IIB non-small cell lung cancer, adenocarcinoma of the right upper lobe. HPI: The patient is a 77-year-old female who has a past medical history significant for type 2 diabetes (metformin), hypertension and hyperlipidemia. She recently underwent evaluation for a cough which has been persistent for about 3 months. She had no complaints of dyspnea fever or wheezing. A CT of the chest was performed on 01/24/2022. There was a 3.5 x 3.8 x 4.3 cm mass in the right upper lobe. This abutted the right hilar region. There was no demonstrated pleural abnormality. Mediastinum and hilar regions appeared normal otherwise. There were multilevel degenerative changes of thoracic spine with a 1.4 cm area of sclerosis observed in the posterior aspect of the T9 or T12 vertebrae at the level of the pedicle on the right side for which correlation with bone scan was recommended. There was a 1 cm cyst in the medial inferior aspect of the right lobe of the liver. Patient underwent a CT-guided right lung biopsy on 02/06/2022. Pathology: -Non-small cell carcinoma, favor adenocarcinoma consistent with lung primary. Specimen was positive for TTF-1, CK7, CK 8 in rare cells that showed positivity for CK20. Complicated by pneumothorax that required chest tube. She underwent MRI of the brain which demonstrated no evidence of metastatic disease. PET scan with results noted. She also had an MRI of the thoracic spine. Images have been loaded. Report is pending. She underwent CT-guided biopsy of the suspicious lesion in T10 vertebral body on 03/09/2022. Pathology demonstrated fragments of sclerotic bone with bone marrow fibrosis and edema and no evidence of carcinoma. She underwent surgical evaluation at [facility]. She is scheduled for mediastinal lymph node sampling on 03/29. Current therapy: 1) Neoadjuvant carboplatin, pemetrexed and nivolumab. Presents for ongoing oncologic management. Interim history: Coughing less. She had a flare of right-sided chronic sciatica but no other symptoms of neuropathy. She also had nausea but that was relieved with antiemetic therapy. She did not lose her appetite. Overall she had fatigue but she still capable of ADLs and IADLs. PMH, medications and allergies personally reviewed by me today. Any changes documented in appropriate section. ROS: Constitutional: Denies episodes of fever and night sweats. Not significantly fatigued. Normal appetite. Neuro: Denies [place], vertigo, dizziness and imbalance. Denies symptoms of neuropathy. HEENT: No recent change in voice, vision or hearing. Resp: See above. CVS: Denies exertional chest pain, PND, orthopnea and LE edema. GI: Denies dysgeusia. Denies symptoms of stomatitis. Denies dysphagia and odynophagia. Denies reflux, n/v, change in bowel habits and abdominal pain. : Denies dysuria or gross hematuria. No symptoms of bladder outlet obstruction. Endo: Denies hot flashes. Denies polyuria and polydipsia. Denies heat and cold intolerance. Musculoskeletal: Arthritic pain of both feet. Derm: Denies rash. Denies jaundice and diffuse pruritis. Heme: Denies unusual bleeding and unexplained bruising. Psych: Normal mood. Social: Quit smoking ~50 years ago. Rare alcohol. Two children. Daughter in [place] and son in [facility]. Family: Mother--?stomach cancer. Sister-- age 12 from acute leukemia. PHYSICAL EXAM: Vitals: Blood pressure 135/78, pulse 68, temperature 36.8 C (98.2 F), weight 68 kg (150 lb), SpO2 97 %. Well-appearing and in no acute distress. EYES: Sclerae are anicteric bilaterally. LYMPHATIC: There is no palpable cervical, supraclavicular, axillary or inguinal adenopathy. RESPIRATORY: Inspiratory breath sounds are of normal intensity in all pelay[place]. No rales, wheezes or rhonchi. CARDIOVASCULAR: Rhythm is regular. ABDOMEN: The abdomen is nondistended. No organomegaly. No tenderness. Extremities: No swelling or edema. SKIN: No jaundice or rash. No petechiae. NEUROLOGIC: mechanical lead II-XII are grossly intact. No focal motor weakness. DTRs are symmetric and normal. MUSCULOSKELETAL: No muscle wasting. ASSESSMENT/PLAN: (D49.1) Neoplasm of lung Assessment: -The patient is a 76-year-old female with a history of light smoking who quit 50 years ago. Recently underwent evaluation for a dry, persistent cough and was found to have a mass in the right upper lobe which on biopsy proved to be adenocarcinoma. -KPS is 90 to 100%. -cT3 cN0 M0 clinical stage IIB non-small cell lung cancer, adenocarcinoma of the right upper lobe -EGFR mutation and ALK translocation negative. -Tolerating neoadjuvant chemotherapy very well. No subjective side effect from immunotherapy. No severe or unexpected toxicity. -CBC reviewed. Plan: -Okay for cycle #2. tomorrow. -CT chest following cycle 3. Portions of this documentation were copied and pasted from previous office visit notes in order to provide a cohesive continuity of the history. The note has been reviewed and edited and updated as necessary. During this patient visit I have spent approximately 10 minutes out of 20 in counseling regarding test results and coordinating care. Rohan Alvarez DO documented in this encounter [facility] 04-11-2022 Miscellaneous Notes This nurse called and spoke to patient. Patient will use miralax PRN for constipation and will call with any worsening symptoms, questions, or concerns. Pamela Loredo RN See phone note. Fiordaliza Grimes LPN documented in this encounter [facility] 04-05-2022 Miscellaneous Notes CYCLE 1/DAY 1 POST TREATMENT CALL Today's date: April 05, 2022 Treatment Regimen: Carboplatin/Alimta Patient did not receive Opdivo d/t not approved at the time of treatment C1D1 Date: 04/04/2022 Called patient to follow-up on symptom management. Spoke with patient SYMPTOM ASSESSMENT Neuro: None CV/Resp: None GI/: Appetite: no changes in appetite, appetite fair, Nausea Yes, resolved without antiemetic and Constipation: yes, last BM yesterday Integument: None Activity: Patient reported no changes in energy level, energy level good Pain: No=0 (pain 0 on a scale of 0-10). Fever: No Chills: No Any new referrals needed? No Reinforced CURRENT treatment education based on current and anticipated symptoms. Discussed port/line care and patient verbalizes understanding: Not Applicable Patient instructed to contact office or after hours Hematology/Oncology fellow for: temperature ? 100.4; questions or concerns. Patient verbalized understanding of when to seek medical attention and after hours number protocol. Pamela Loredo RN documented in this encounter [facility] 04-04-2022 Miscellaneous Notes The following approved medication requests have been transmitted electronically. Signed Prescriptions Disp Refills promethazine (PHENERGAN) 25 mg tablet 30 tablet 2 Sig: Take 1 tablet by mouth every 6 hours as needed (For chemotherapy induced nausea). FOR NAUSEA Authorizing Provider: ROHAN ALVAREZ DO Patient does not have an antiemetic on file. Order filed for promethazine. Pamela Loredo RN documented in this encounter [facility] 04-03-2022 Miscellaneous Notes Working Cancer Cesar. Patient is active with Medicare A and B as well as [employer] Medicare Supplement and is not expected to have any financial responsibility for treatment in [facility]. [employer] has $6000 jamarcus open that could be used for premium. Called patient and advised of navigator services and insurance. Patient stated understanding and would like to enroll in jamarcus but will have to get back to be with income information. documented in this encounter [facility] 03-31-2022 Miscellaneous Notes The following approved medication requests have been transmitted electronically. Signed Prescriptions Disp Refills codeine-guaiFENesin (GUAIFENESIN AC) 10-100 mg/5 mL syrup 236 mL 0 Sig: Take 5 mL by mouth three times daily as needed for up to 16 days. KRISTAN Class: C-V JOSE: No Authorizing Provider: ROHAN ALVAREZ DO Yes, guaifenesin AC did help and she'd like a refill sent to [facility]. I did call [facility] to make sure they had this in stock. Fiordaliza Grimes LPN Dr. Sherri Torres had given her prescription for codeine/guaifenesin cough syrup at the beginning of February. Does she recall if that worked for her? Rohan Alvarez DO Hydromet cough syrup is on backorder. I've checked with multiple pharmacies and it is unavailable. Is there something else she can use? Fiordaliza Grimes LPN Patient is calling wanting refill on cough medication. She states when this was ordered last [facility] did not have it. Please return call to patient. documented in this encounter [facility] 03-30-2022 Nurse Note This visit was completed via telephone. Pamela Loredo RN ONCOLOGY PATIENT EDUCATION NOTE TOPIC: Chemotherapy Immunotherapy, Medications: Carboplatin/Alimta/Opdivo READINESS TO LEARN: COGNITIVE ABILITY: Alert and oriented MOTIVATION TO LEARN: Interested FAMILY SUPPORT: Unable to assess - Family not present INSTRUCTION PROVIDED TO: Patient INSTRUCTION PROVIDED BY: Nurse Coordinator PATIENT LEARNS BEST BY: Multiple Methods FACTORS AFFECTING LEARNING: None PHYSICAL LIMITATIONS AFFECTING LEARNING: None LEARNING RESPONSE DIAGNOSIS: cT3 cN0 M0 clinical stage IIB non-small cell lung cancer, adenocarcinoma of the right upper lobe METHOD OF INSTRUCTION: Individual instruction Written instruction - handouts Verbal instruction PATIENT/FAMILY RESPONSE: Verbalizes understanding of: CHEMOTHERAPY-Regimen, toxicity and side effects FOLLOW UP PLAN: Patient instructed to call with any further issues Recommend - Recommend continued instruction and follow up as directed Follow up phone call. Contact information given. SUPPLEMENTAL MATERIAL: Written material was provided at this visit with the following information: - Chemotherapy Immunotherapy education was provided by a pharmacist NO - Side effect management information was provided/discussed including but not limited to: abdominal discomfort, anemia, appetite changes, arthralgia, bowel habit changes, diet, electrolyte disturbances, fatigue, hair loss, hypersensitivity reaction, infection, mouth hygiene, mucositis, myalgia, nausea/vomitting, neuropathy, neutropenia, peripheral neuropathy, rash, shortness of breath, skin changes, taste changes, thrombocytopenia YES - Provided important phone numbers and contacts during and after hours. YES - Provided information on symptoms that require immediate assistance. YES - Provided Chemotherapy Immunotherapy when to call handouts YES - Preventing infection. YES - Treatment schedule and confirmation of appointment times. YES - Available support groups. YES - The importance of contraception during the course of chemotherapy YES - Neutropenic fever protocol discussed with patient, which included the importance of reporting any fever of 100.4F (38.0C) or greater to the healthcare team as noted on the provided wallet card and/or magnet. YES Time Spent: 65 minutes REFERRAL (RECOMMENDATION): Social Work Pamela Loredo RN Machine Rigger Pre Chemo Patient identified by name and date of . YES Confirmed date and time for chemotherapy ? YES Other appointments (labs, imaging) discussed? YES Discussed where to park (television equipment operator), charge for parking YES Discussed where to report (building/floor) YES Any pre-medications ordered? YES Described the infusion room and what to expect. (What to wear, what to bring [iPad, books] amount of time treatment can take, meals and CC options for food) YES Note: Discussed whether the patient can eat prior to labs and treatment. YES Who is driving you to and from treatment? Spouse Discussed why it is important to bring someone with you. Yes, for the first treatment Resources discussed (music therapy, Art therapy, pet therapy, etc.) NO Education on chemotherapy (drug, side effects) discussed and that the patient will be receiving a C1D1 call within 7 days of treatment. YES Other topics discussed, interventions needed: Pamela Loredo RN documented in this encounter [facility] 03-30-2022 Miscellaneous Notes PSYCHOSOCIAL ASSESSMENT Date of Service: March 30, 2022 Lidia Ortiz is a 77 year old female being seen for initial social work assessment. Diagnosis: lung cancer New Primary Oncologist: Dr. Alvarez Radiation Oncologist: CAROLA Goals of Care: Curative intent Today's visit includes: self/patient Family History of Cancer: Other SUPPORT NETWORK: Marital status: Parent(s): Mother is and Father is Child/Children: Yes. How many? 2, daughter in [place], son locally direct care worker arrangements needed: No Siblings: 1 sister(s) Grandchild(ani): 4 Home Health Provider: No Community Services: No Pina Identified: Yes Hoahaoism/Spirituality: Sikh Are these practices or beliefs that may affect or influence treatment? No EMPLOYMENT/FINANCIAL/HEALTH INSURANCE: Employment: Employed: part-time Income source: Social Security and Salary Insurance: Medicare with co-insurance Prescription coverage: Yes Is the patient appropriate for referral to [facility] COBRA Assistance program? No Financial Distress: No [place]: No FOOD INSECURITY Within the past year, have you worried about how you would buy or obtain food? No LIVING ARRANGEMENTS: Type: House- independent [place] Resides with: Family Spouse FUNCTIONAL STATUS: Cognitive limitations: none Physical limitations: none Language barrier: No Hearing Impaired: No Speech Impaired: No Visual Impairments: Yes, glasses Special considerations/accommodations needed: No HEALTH LITERACY: 1. Do you have difficulty understanding medical instructions or other written materials you receive from you doctor or pharmacy? No 2. Do have difficulty filling out medical forms by yourself? No The following interventions were put into place: Use of plain language active listening with patient and family Use of concrete and specific phrases and avoid medical jargon Patient given opportunity to ask questions MEDICATION ADHERENCE: Within the past 2 weeks, have you had difficulty remembering to take your medicine? No Within the past 2 weeks, did you ever miss taking your medications for reasons other than forgetting? No The following interventions were put into place: Community resources provided MENTAL HEALTH HISTORY: No History of combat/trauma: No Substance Use and Treatment History: denied History of Abuse: No Issues with: Sleep:No Eating:No Exercising: No Stress Management: No ADVANCE DIRECTIVES/LEGAL DOCUMENTS: Living Will: Yes Scanned into frooly: No Health Care Durable Power of Manager Strategic: Yes Scanned into EPIC: No Guardianship: NA Scanned into EPIC:NA Reasons Advanced Directives were not Addressed: NA COPING STATUS: Coping Strengths: supportive relationships with immediate family, with friends and with extended family spirituality successful managing past crises hopefulness self advocate strong problem-solving skills ability to plan able to follow direction consistently over time able to communicate effectively Current affect/mood: appropriate History of Loss: Yes, mother, father Adjustment to diagnosis: reflecting understanding, responding appropriately and accepting help BARRIERS/CARE CHALLENGES: None Are barriers/care challenges identified likely to have an impact on the patient's quality of life during treatment? NA INTERVENTIONS/REFERRALS TO BE PROVIDED: Monitor patient response to treatment Communicate pertinent medical/psychosocial information to Cancer Center team Provide emotional support to patient/family Provided education on distress and screening process Continue follow up as needed Resources and Referrals: Internal: NA External: N/A CLINICAL IMPRESSION: SW spoke with patient on this day to monitor MH symptoms and to assess patient needs. Patient reports strong support system and lives with her spouse in a two-story home. Patient denies history of MH/AoD issues and states she is eating and sleeping well. Patient has Advance Directives, but will let SW know if she needs to update these. She will bring a copy if they are still valid. SW oriented patient to services and discussed local resources. Psychosocial Risk Criteria If positive for one or more of the following risk criteria, follow up every 30 days Age: >70 Mental Health: NA Practical Needs: N/A PLAN: Follow-up regarding AD Follow up appointment with SW in: YENIFER Rush documented in this encounter [facility] 03-29-2022 Nurse Note POST OP LEARNING RESPONSE INSTRUCTION PROVIDED TO: Patient and family member METHOD OF INSTRUCTION: Individual instruction Written instruction - handouts Verbal instruction PATIENT / FAMILY RESPONSE: Verbalizes understanding of: POST-PROCEDURE INSTRUCTIONS-Correct actions to take to reduce post procedure complications FOLLOW-UP PLAN: Complete - No need for follow-up Patient instructed to call with any further issues SUPPLEMENTAL MATERIAL: None REFERRAL (RECOMMENDATION): None AMBULATORY PATIENT EDUCATION READINESS TO LEARN COGNITIVE ABILITY: Alert and oriented MOTIVATION TO LEARN: Eager FAMILY SUPPORT: None - Unavailable/disinterested INSTRUCTION PROVIDED TO: Patient PATIENT LEARNS BEST BY: Verbal Instruction FACTORS AFFECTING LEARNING: None PHYSICAL LIMITATIONS AFFECTING LEARNING: None LEARNING RESPONSE DIAGNOSIS: lung disease METHOD OF INSTRUCTION: Verbal instruction PATIENT / FAMILY RESPONSE: Verbalizes understanding of: PRE-PROCEDURE INSTRUCTIONS-Correct action to take to follow pre-procedure instructions FOLLOW-UP PLAN: Complete - No need for follow-up SUPPLEMENTAL MATERIAL: None REFERRAL (RECOMMENDATION): None Electronically Signed By: Maryanne Orellana RN documented in this encounter [facility] 03-22-2022 History of Present illness Narrative Oncologic problem(s): 1) cT3 cN0 M0 clinical stage IIB non-small cell lung cancer, adenocarcinoma of the right upper lobe. HPI: The patient is a 76-year-old female who has a past medical history significant for type 2 diabetes (metformin), hypertension and hyperlipidemia. She recently underwent evaluation for a cough which has been persistent for about 3 months. She had no complaints of dyspnea fever or wheezing. A CT of the chest was performed on 01/24/2022. There was a 3.5 x 3.8 x 4.3 cm mass in the right upper lobe. This abutted the right hilar region. There was no demonstrated pleural abnormality. Mediastinum and hilar regions appeared normal otherwise. There were multilevel degenerative changes of thoracic spine with a 1.4 cm area of sclerosis observed in the posterior aspect of the T9 or T12 vertebrae at the level of the pedicle on the right side for which correlation with bone scan was recommended. There was a 1 cm cyst in the medial inferior aspect of the right lobe of the liver. Patient underwent a CT-guided right lung biopsy on 02/06/2022. Pathology: -Non-small cell carcinoma, favor adenocarcinoma consistent with lung primary. Specimen was positive for TTF-1, CK7, CK 8 in rare cells that showed positivity for CK20. Complicated by pneumothorax that required chest tube. She underwent MRI of the brain which demonstrated no evidence of metastatic disease. PET scan with results noted. She also had an MRI of the thoracic spine. Images have been loaded. Report is pending. Presents for ongoing oncologic management. Interim history: She underwent CT-guided biopsy of the suspicious lesion in T10 vertebral body on 03/09/2022. Pathology demonstrated fragments of sclerotic bone with bone marrow fibrosis and edema and no evidence of carcinoma. She underwent surgical evaluation at [facility]. She is scheduled for mediastinal lymph node sampling on 03/29. She returns today to discuss neoadjuvant chemoimmunotherapy. No subjective change--Her cough is persistent--response to codeine-based cough syrup. It does not wake her at night. Sometimes taking a deep breath will trigger the cough. Occasionally productive of small amounts of clear sputum which occasionally have some brownish flecks in it. She is not had hemoptysis. No wheeze. She is not short of breath at rest but she has noticed some mild dyspnea when she is walking up slopes. She remains very active however and does a lot of hiking. Appetite has remained normal. She is not had any chest pain or pressure. She smoked for a couple years and her early 20s but quit 50 years ago. PMH, medications and allergies personally reviewed by me today. Any changes documented in appropriate section. ROS: Constitutional: Denies episodes of fever and night sweats. Not significantly fatigued. Normal appetite. Neuro: Denies [place], vertigo, dizziness and imbalance. Denies symptoms of neuropathy. HEENT: No recent change in voice, vision or hearing. Resp: See above. CVS: Denies exertional chest pain, PND, orthopnea and LE edema. GI: Denies dysgeusia. Denies symptoms of stomatitis. Denies dysphagia and odynophagia. Denies reflux, n/v, change in bowel habits and abdominal pain. : Denies dysuria or gross hematuria. No symptoms of bladder outlet obstruction. Endo: Denies hot flashes. Denies polyuria and polydipsia. Denies heat and cold intolerance. Musculoskeletal: Arthritic pain of both feet. Derm: Denies rash. Denies jaundice and diffuse pruritis. Heme: Denies unusual bleeding and unexplained bruising. Psych: Normal mood. Social: Quit smoking ~50 years ago. Rare alcohol. Two children. Daughter in [place] and son in [facility]. Family: Mother--?stomach cancer. Sister-- age 12 from acute leukemia. PHYSICAL EXAM: Vitals: Blood pressure 173/85, pulse 64, temperature 36.4 C (97.6 F), temperature source Temporal, weight 69.4 kg (153 lb). Well-appearing and in no acute distress. EYES: Sclerae are anicteric bilaterally. LYMPHATIC: There is no palpable cervical, supraclavicular, axillary or inguinal adenopathy. RESPIRATORY: Inspiratory breath sounds are of normal intensity in all [place]. No rales, wheezes or rhonchi. CARDIOVASCULAR: Rhythm is regular. ABDOMEN: The abdomen is nondistended. No organomegaly. No tenderness. Extremities: No swelling or edema. SKIN: No jaundice or rash. No petechiae. NEUROLOGIC: mechanical lead II-XII are grossly intact. No focal motor weakness. DTRs are symmetric and normal. MUSCULOSKELETAL: No muscle wasting. ASSESSMENT/PLAN: (D49.1) Neoplasm of lung Assessment: -The patient is a 76-year-old female with a history of light smoking who quit 50 years ago. Recently underwent evaluation for a dry, persistent cough and was found to have a mass in the right upper lobe which on biopsy proved to be adenocarcinoma. -KPS is 90 to 100%. -cT3 cN0 M0 clinical stage IIB non-small cell lung cancer, adenocarcinoma of the right upper lobe -EGFR mutation and ALK translocation negative. -Aced on the recent published evidence of the Checkmate 816 trial, recommended neoadjuvant [place] based doublet along with nivolumab. Specifically recommended pemetrexed, carboplatin and nivolumab. I discussed the rationale, logistics, potential risks (including ), benefits and alternatives, as well as the personnel involved in the administration of pemetrexed, carboplatin and nivolumab. I answered her questions in detail and she verbalized understanding and agreed with the recommended therapy. Please see the electronic consent document for details of doses and schedule. Plan: -B12 injection today. -Rx for folic acid sent. -Refilled Hycodan cough syrup. -Chemo therapy teaching. -Begin treatment after patient has had mediastinal lymph node sampling. -Plan will be for 3 cycles followed by repeat imaging with an aim for surgery about 4 weeks after completing treatment. Portions of this documentation were copied and pasted from previous office visit notes in order to provide a cohesive continuity of the history. The note has been reviewed and edited and updated as necessary. During this patient visit I have spent approximately 25 minutes out of 35 in counseling regarding test results and coordinating care. Rohan Alvarez DO documented in this encounter [facility] 03-22-2022 Note HNO ID: [id number] Author: Eduardo Lehman MD Service: ? Author Type: Physician Type: Progress Notes Filed: 03/24/2022 3:13 PM Note Text: [facility] THORACIC SURGERY OUTPATIENT CONSULT NOTE Lidia Ortiz [id number] Requesting Provider: Rohan Alvarez Thoracic Physician: Eduardo Lehman MD Chief Complaint: Malignant neoplasm of upper lobe of right lung Impression: I had a lengthy discussion with Ms. Ortiz. She has a clinical stage II lung cancer based on imaging. I have recommended an EBUS to complete her staging evaluation and the proceeding with induction chemo/IO as long as the EBUS does not reveal occult IIIB disease. We would then plan to see her back for restaging and preparation for surgical resection. Plan: 1) Await EBUS results 2) Likely induction chemo/IO 3) return following completion of induction for restaging. SIGNATURE: Eduardo Lehman MD DATE of SERVICE: 03/22/22 TIME of SERVICE: 25 min HPI: Lidia Ortiz is a 77 year old White female referred by Rohan Alvarez for an opinion regarding management of newly diagnosed lung cancer. She reports URI symptoms in September which was treated as an infection but she has been troubled by a persistent cough. Ultimately this led to a CT, PET and perc biopsy revealing a lung cancer. There was an incidental T10 lesion seen on PET and MRI which was biopsy negative. The patient reports a good functional status, denies underlying heart disease and reports an active lifestyle including daily aerobic exercise. ECOG Score: 0 Living arrangement: Lives with family/friend Functional status: Independent Unintentional weight loss over last 3 months: No PAST MEDICAL HISTORY: PAST MEDICAL HISTORY Diagnosis Date - Diabetes type 2, controlled (HCC) - Diverticulosis of colon (without mention of hemorrhage) - Essential hypertension - Hypercholesterolemia - Rosacea PAST SURGICAL HISTORY: PAST SURGICAL HISTORY Procedure Laterality Date - COLONOSCOPY FLX DX W/COLLJ SPEC WHEN PFRMD 2008 Colonoscopy - COLONOSCOPY FLX DX W/COLLJ SPEC WHEN PFRMD 04/04/2011 Colonoscopy - COLONOSCOPY FLX DX W/COLLJ SPEC WHEN PFRMD 10/23/2016 Colonoscopy - EXC/DSTRJ LINGUAL TONSIL ANY METHOD SPX - PAST SURGICAL HISTORY OF 2005 hysterectomy for prolapsed uterus - PAST SURGICAL HISTORY OF approx 1989 left upper arm melanoma FAMILY HISTORY: FAMILY HISTORY Problem Relation Age of Onset - Diabetes Mother - Hyperlipidemia Mother - Cancer Mother Lymphoma - Hypertension Father - Macular Degen Father - Hyperlipidemia Sister - Heart Attack Brother - Diabetes Maternal Grandfather - Stroke Paternal Grandmother SOCIAL HISTORY: Social History Tobacco Use - Smoking status: Former Smoker Years: 5.00 Types: Cigarettes - Smokeless tobacco: Never Used - Tobacco comment: social smoker Vaping Use - Vaping Use: Never used Substance Use Topics - Alcohol use: Yes Comment: ocas wine - Drug use: No MEDICATIONS: Prior to Admission Medications: alendronate (FOSAMAX) 70 mg tablet 70 mg one time a week. rosuvastatin 5 mg cpSP 5 mg once daily. lisinopril (ZESTRIL, PRINIVIL) 20 mg tablet Take 20 mg by mouth once daily. metFORMIN ER (GLUCOPHAGE XR) 500 mg 24 hr tablet 500 mg twice daily. therapeutic multivitamin ORAL tablet Take 1 tablet by mouth once daily. Ca Nsdw-V4-Xcme-Chndr-Sy Is-Br (BPPCOTV-T8-URFBUWVI-CHONDROIT) [id number] rf-xcii-lj-mg ORAL Tab Take by mouth. Take one(1) tablet daily. Coenzyme K24-Elabkmd E (COQ10 SG 100) 100-100 mg-unit ORAL Cap Take by mouth. Take one(1) capsule daily. METROLOTION 0.75 % bid face ALLERGIES: ALLERGIES Allergen Reactions - Demerol [Meperidine* - Lactose Other: See Comments Bloating and abdominal pain Chemical Exposure: No Asbestos Exposure No COMPLETE REVIEW OF SYSTEMS Constitutional: No weight loss, malaise or fevers. HEENT: Negative for frequent or significant headaches Resp: Negative for hemoptysis or progressive dyspnea, (+) cough Cardiovascular: Negative for chest pain, leg swelling or palpitations GI: Negative for abdominal discomfort, blood in stools or black stools or change in bowel habits : No history of dysuria, frequency, or incontinence Endo: Negative for cold or heat intolerance, polyuria, polydipsia and goiter Heme/Lymph: Negative for prolonged bleeding, bruising easily or swollen nodes Neurologic: No history or headaches, syncope, paralysis, seizures or tremors Integumentary: Negative for lesions, rash, and itching. PHYSICAL EXAM virtual Cardiopulmonary Testing PFT's/Six: 02/24/2022 ? PRE-BRONCH ? ? ?POST-BRONCH ?Pred ? ? LLN ? ? ULN ? Actual ? %Pred ? Actual ? %Chng SPIROMETRY FVC (L) ? 3.29 ? ?2.34 ? ?4.29 ? ? 3.29 ? ? 100 ? ? 3.19 ? ? ?-2 FEV1 (L) ?2.49 ? ?1 (more content not included)... [facility] 03-22-2022 History of Present illness Narrative Images from the original note were not included. [facility] THORACIC SURGERY OUTPATIENT CONSULT NOTE Lidia Raines Angel [id number] Requesting Provider: Rohan Alvarez Thoracic Physician: Eduardo Lehman MD Chief Complaint: Malignant neoplasm of upper lobe of right lung Impression: I had a lengthy discussion with Ms. Ortiz. She has a clinical stage II lung cancer based on imaging. I have recommended an EBUS to complete her staging evaluation and the proceeding with induction chemo/IO as long as the EBUS does not reveal occult IIIB disease. We would then plan to see her back for restaging and preparation for surgical resection. Plan: 1) Await EBUS results 2) Likely induction chemo/IO 3) return following completion of induction for restaging. SIGNATURE: Eduardo Lehman MD DATE of SERVICE: 03/22/22 TIME of SERVICE: 25 min HPI: Lidia Ortiz is a 77 year old White female referred by Rohan Alvarez for an opinion regarding management of newly diagnosed lung cancer. She reports URI symptoms in September which was treated as an infection but she has been troubled by a persistent cough. Ultimately this led to a CT, PET and perc biopsy revealing a lung cancer. There was an incidental T10 lesion seen on PET and MRI which was biopsy negative. The patient reports a good functional status, denies underlying heart disease and reports an active lifestyle including daily aerobic exercise. ECOG Score: 0 Living arrangement: Lives with family/friend Functional status: Independent Unintentional weight loss over last 3 months: No PAST MEDICAL HISTORY: PAST MEDICAL HISTORY Diagnosis Date Diabetes type 2, controlled (HCC) Diverticulosis of colon (without mention of hemorrhage) Essential hypertension Hypercholesterolemia Rosacea PAST SURGICAL HISTORY: PAST SURGICAL HISTORY Procedure Laterality Date COLONOSCOPY FLX DX W/COLLJ SPEC WHEN PFRMD 2008 Colonoscopy COLONOSCOPY FLX DX W/COLLJ SPEC WHEN PFRMD 04/04/2011 Colonoscopy COLONOSCOPY FLX DX W/COLLJ SPEC WHEN PFRMD 10/23/2016 Colonoscopy EXC/DSTRJ LINGUAL TONSIL ANY METHOD SPX PAST SURGICAL HISTORY OF 2005 hysterectomy for prolapsed uterus PAST SURGICAL HISTORY OF approx 1989 left upper arm melanoma FAMILY HISTORY: FAMILY HISTORY Problem Relation Age of Onset Diabetes Mother Hyperlipidemia Mother Cancer Mother Lymphoma Hypertension Father Macular Degen Father Hyperlipidemia Sister Heart Attack Brother Diabetes Maternal Grandfather Stroke Paternal Grandmother SOCIAL HISTORY: Social History Tobacco Use Smoking status: Former Smoker Years: 5.00 Types: Cigarettes Smokeless tobacco: Never Used Tobacco comment: social smoker Vaping Use Vaping Use: Never used Substance Use Topics Alcohol use: Yes Comment: ocas wine Drug use: No MEDICATIONS: Prior to Admission Medications: alendronate (FOSAMAX) 70 mg tablet 70 mg one time a week. rosuvastatin 5 mg cpSP 5 mg once daily. lisinopril (ZESTRIL, PRINIVIL) 20 mg tablet Take 20 mg by mouth once daily. metFORMIN ER (GLUCOPHAGE XR) 500 mg 24 hr tablet 500 mg twice daily. therapeutic multivitamin ORAL tablet Take 1 tablet by mouth once daily. Ca Htwo-V7-Tifh-Chndr-Sy Is-Br (IXWXOZA-W6-SSZHVDNX-CHONDROIT) [id number] kp-kmjg-yb-mg ORAL Tab Take by mouth. Take one(1) tablet daily. Coenzyme A29-Mabdsmw E (COQ10 SG 100) 100-100 mg-unit ORAL Cap Take by mouth. Take one(1) capsule daily. METROLOTION 0.75 % bid face ALLERGIES: ALLERGIES Allergen Reactions Demerol [Meperidine* Lactose Other: See Comments Bloating and abdominal pain Chemical Exposure: No Asbestos Exposure No COMPLETE REVIEW OF SYSTEMS Constitutional: No weight loss, malaise or fevers. HEENT: Negative for frequent or significant headaches Resp: Negative for hemoptysis or progressive dyspnea, (+) cough Cardiovascular: Negative for chest pain, leg swelling or palpitations GI: Negative for abdominal discomfort, blood in stools or black stools or change in bowel habits : No history of dysuria, frequency, or incontinence Endo: Negative for cold or heat intolerance, polyuria, polydipsia and goiter Heme/Lymph: Negative for prolonged bleeding, bruising easily or swollen nodes Neurologic: No history or headaches, syncope, paralysis, seizures or tremors Integumentary: Negative for lesions, rash, and itching. PHYSICAL EXAM virtual Cardiopulmonary Testing PFT's/Six: 02/24/2022 PRE-BRONCH POST-BRONCH Pred LLN ULN Actual %Pred Actual %Chng SPIROMETRY FVC (L) 3.29 2.34 4.29 3.29 100 3.19 -2 FEV1 (L) 2.49 1.77 3.17 2.09 83 2.10 0 FEV1/FVC 0.77 0.63 0.89 0.63 82 0.66 3 DIFFUSION DLCOunc (ml/min/mmHg) 22.41 16.24 28.57 24.63 109 DLunc/VA (ml/min/mmHg 3.90 2.59 5.22 4.74 121 VA (L) 6.09 4.99 7.19 5.20 85 Cardiac: Office Notes/Consults 02/24/2022 puljessica Torres Assessment/Plan: 1. Lung cancer right upper lobe -Clinical stage IIA making this a potentially resectable non-small cell lung cancer -Full set of PFTs to assess for resectability -Pending final MRI report and PFT evaluation, will need referral to thoracic surgery and will likely need cardiac clearance 2. Chronic cough -Due to her lung cancer -Codeine cough syrup to use as needed and prior to bedtime. [facility] report obtained and reviewed. 3. Lung nodule -Small subpleural right lower lobe nodule not PET avid will need follow-up Radiology: Imaging PET/CT: 02/21/2022 Head and Neck: * 1.0 cm left thyroid lobe nodule is not FDG avid. Recommend correlation with thyroid ultrasound, if not recently performed. Chest: * 5.2 cm right upper lobe hypermetabolic mass, consistent with biopsy proven primary lung carcinoma. * Additional small right lung pulmonary nodules in the right upper and lower lobes measure approximately 1 cm, and are not FDG avid. Further workup including follow-up imaging may be performed, as clinically indicated. * No pathologic or FDG avid lymphadenopathy. Abdomen and pelvis: * No evidence of FDG avid neoplastic process * Small nonobstructing left renal calculi measuring up to 0.4 cm. * Atherosclerosis Musculoskeletal: * T10 vertebral body lesion is not significantly FDG avid, metastasis cannot be entirely excluded. If prior studies are not available, characterization with contrast-enhanced thoracic spine MRI is recommended CT (chest) 02/16/2022 MRI: 02/22/2022 MRI brain negative for metastases I have personally reviewed the following images/data: Chest X-ray, CT scan, Pathology, PET Scan and PFT/screening nitin documented in this encounter [facility] 03-18-2022 Miscellaneous Notes Bronchoscopy scheduled on 03/29/2022. COVID sched on 03/27/2022 at [place] along with pre-op testing. documented in this encounter [facility] 03-17-2022 Miscellaneous Notes Patient confirmed date/time. Yes, please confirm with her. Rohan Alvarez DO Patient scheduled. Does patient need notified of time? Please advise. I spoke with the patient just now about the conversation I had with Dr. Lehman. Please schedule her to see me next Thursday 03/22 at 12:10 PM. She is going to have a virtual visit with Dr. Lehman at 10 AM that day so she may be a little bit late for her appointment here but that is okay. Rohan Alvarez DO documented in this encounter [facility] 03-17-2022 History of Present illness Narrative Bronchoscopy Request: Cleared for scheduling March 17, 2022 Please schedule patient for the following: Established Visit (last seen by Elkin Torres 02/24/22); Thoracic requesting Pre-op evaluation Staging EBUS Clinical Trial Candidate: No Visit and Bronchoscopy: Different Day Time Allotment/Tier: TIER 2: 2 HOUR Physician Performing Bronchoscopy:Bronch A, B or C Anesthesia Type: General Special Requests: None Needs Labs: Yes, CMP and COVID screen Needs EKG: Yes Needs CT prior: No Does the pt need cardiac clearance? No Is he/she on anticoagulants/anti-plt therapy? No Nursing Considerations: (ie: senior care, TB, respiratory isolation, etc.) none Diagnosis/Reason for Bronchoscopy: 77 y/o female with recently diagnosed NSCLCa from RML/RUL mass. Being referred for STAGING EBUS. Referred by: Casi Lehman/Deidre Alvarez Reviewed by: Antonio Alvarez MD March 17, 2022 10:44 AM Addendum: CBC with diff: WBC 6.32 03/07/2022 RBC 4.36 03/07/2022 Hemoglobin 13.2 03/07/2022 Hematocrit 39.9 03/07/2022 MCV 91.5 03/07/2022 MCH 30.3 03/07/2022 MCHC 33.1 03/07/2022 RDW-CV 11.9 03/07/2022 Platelet Count 272 03/07/2022 MPV 9.7 03/07/2022 Neut% 66.5 03/07/2022 Lymph% 26.7 03/07/2022 [place]% 6.0 03/07/2022 Baso% 0.3 03/07/2022 Abs Neut 4.20 03/07/2022 Abs [place] 0.38 03/07/2022 Abs Eosin <0.03 03/07/2022 Abs Baso <0.03 03/07/2022 Potassium Date Value Ref Range Status 11/06/2016 4.2 3.7 - 5.1 mmol/L Final Sodium Date Value Ref Range Status 11/06/2016 140 136 - 144 mmol/L Final BUN Date Value Ref Range Status 11/06/2016 20 7 - 21 mg/dL Final Creatinine Date Value Ref Range Status 11/06/2016 0.79 0.58 - 0.96 mg/dL Final documented in this encounter [facility] 03-17-2022 History of Present illness Narrative Pulmonary Cancer Referral Request: Patient Name: Lidia Ortiz Please schedule patient for the following: New consultation for: Pre Operative Evaluation and Staging Bronchoscopy Reason for referral: Lung nodule- biopsy proven cancer Referred to: First Available Surgery Planned: Yes- Unknown Imaging: Available in [facility] The following are ordered or available: CT, Labs, MRI, PET and PFT's Patients Medical Records: [facility] Is the patient on anticoagulants/anti-plt therapy? No Diagnosis: adenocarcinoma Right lung Referred by: eduardo lehman/rohan Tovar RN March 17, 2022 9:19 AM documented in this encounter [facility] 03-16-2022 Miscellaneous Notes Spoke with triage staff at Dr. Lehman's office. They will triage and contact patient to schedule. Keep this note open until patient is scheduled. Carline Clarke Order filed. Rhoan Alvarez DO Please file consult order. Fiordaliza Grimes LPN I called her to let them know the biopsy of the thoracic vertebrae was negative. Therefore no evidence of metastatic disease. We will refer her to Dr. Eduardo Lehman. Rohan Alvarez DO documented in this encounter [facility] 03-01-2022 Miscellaneous Notes High priority biopsy request sent to biopsy coordinator at [facility]. I spoke to the patient and explained to her the next steps. Patient verbalized understanding. Fiordaliza Grimes LPN Spoke with [facility] radiologist who read the MRI and agreed with the outside read. The lesion in T10 is suspicious for metastatic disease. Biopsy required in order to determine this definitively. Please see if we can get this scheduled JESUS. Rohan Alvarez DO [facility] MRI images are in Epic. Fiordaliza Grimes LPN Results received. Dr. Alvarez aware. I requested the images from [facility] be pushed through to [facility]. Please leave note open until images are pushed and Dr. Alvarez is aware. Fiordaliza Grimes LPN I called and spoke to Ignacia in medical records at [facility]. MRI thoracic spine has been transcribed and she will fax it over. Fiordaliza Grimes LPN I spoke with patient and informed her we are still waiting on the radiologist at [facility] to compare the PET scan to the MRI thoracic spine. We will call her when we have those results. Fiordaliza Grimes LPN Patient called requesting to speak to a nurse in regards to the MRI she had done at [facility]. She can be reached at [phone] Thank you Mariangel Reed [facility] vocational rehabilitation technician called and stated that the radiologist won't read the MRI thoracic spine until he gets the images from the PET scan she had done here. I faxed a request to our film library to have them send images to [facility]. I have called several times over the last 2 days and was never given this information before today. Fiordaliza Grimes LPN Noted. Thank you for calling the patient. Rohan Alvarez DO Contacted [facility] radiology department again. MRI thoracic spine still has not been read. According to the tech, [facility] (all sites) do not do STAT MRI's. They have 48 hours to read them. Tech will attempt to speak with radiologist on site to read this. Patient notified. Fiordaliza Grimes LPN Contacted [facility] this morning. MRI thoracic spine has not been read yet. Dr. Alvarez is aware. Fiordaliza Grimes LPN MRI brain report received. I also requested MRI thoracic spine report and was told via fax they did not have that. Message left on for MRI regarding MRI thoracic spine report. Fiordaliza Grimes LPN Reports requested. Fiordaliza Grimes LPN MRI brain and thoracic spine completed. Fax/phone lines down. Unable to request radiologist's reports at this time. CD received and given to radiology to upload. Fiordaliza Grimes LPN Will fax request once MRI is completed. Fiordaliza Grimes LPN More importantly, we will need the radiologist's report of the MRI as well as the disc. Rohan Alvarez DO Patient scheduled for earlier MRI 02/22/2022, could only get pt in [place] in [facility], pt refused going to any other [facility] facility other than ,[facility] and here, the earliest still being on 03/02. Advised pt to bring disc after her scan is done, for her appointment with on 02/23 @ 8:30. Yamileth Hope PSS Lets see if we can get the brain MRI sooner even if it has to be done at another [facility] facility. Then I can see her for office visit next morning at 830. Rohan Alvarez DO Would you like to push her apt out a day or two so that both the PET and MRI are available for review during the OV or keep as is? Radha Desai LPN Patient calling she has an appointment with Dr. Alvarez on 02/28. Patient having PET scan on 02/21 and MRI on 03/02. Patient asking if Dr. Alvarez is wanting to see her after MRI and if she should change her appointment with him. Please advise and call patient. Thank you documented in this encounter [facility] 02-28-2022 Miscellaneous Notes I spoke to patient and gave her an update on the status of the MRI from [place]. Fiordaliza Grimes LPN documented in this encounter [facility] 02-24-2022 Miscellaneous Notes Mirella at [facility] is requesting her pet scan to be sent over to them, are you able to do this? THA Munroe February 24, 2022 12:41 PM documented in this encounter [facility] 02-24-2022 History of Present illness Narrative Images from the original note were not included. . [facility] [place] Note Patient name: Lidia Ortiz PCP: Mimi Quach MD Referring Physician: Rohan Alvarez DO Consultation requested by Dr. Early an opinion regarding lung cancer. My final recommendations will be communicated back to the requesting physician by way of shared Medical record or letter to requesting physician via US mail. CC: Lung cancer HPI: Lidia Ortiz 76 year old female former remote minimal smoker with PMH significant for HTN, DM 2, HLD and new diagnosis of lung cancer. Diagnosed with cancer after she was evaluated for 3 month history of cough. Chest CT showed 3 x 4 cm RUL mass and subsequent CT guided biopsy confirmed adenocarcinoma. In process of staging work-up. Thus far her PET scan shows activity only in her primary mass although she has a T10 lesion which did not show any abnormal uptake. She is pending MRI of her spine. If her spine is negative, she would be a clinical stage IIA (T2b N0 M0) which would be surgically resectable. History dates back several months ago when she had first noted cough mainly dry but occasionally productive of phlegm. Her cough is more prominent at night but does not wake her up from sleep although her states that she coughs throughout the night. She had one episode of blood-tinged sputum. She has no significant chest pain, wheezing but has noted some shortness of breath when climbing steep hills but not climbing stairs. She is very active participating in routine exercise, walking 2 miles every day. Concomitant with her cough, she has had some right sided posterior back pain which she describes more like a muscle ache. No bony pain. She has not had any weight loss or other constitutional symptoms. DATA: Labs: 02/02/2022 at [facility] WBC 6.7, hemoglobin 13.1, hematocrit 38.9, platelets 267 Sodium 138, potassium 3.8, chloride 104, bicarb 30, BUN 25, creatinine 0.63 Imaging / Diagnostic Studies: DATE OF EXAM: Feb 21 2022 8:32AM MDP 0060 - NM PET/CT SKULL-THIGH INIT / PROCEDURE REASON: multiple diagnoses FDG PET/CT SCAN 02/21/2022 6:47 AM: CLINICAL HISTORY: 76 years old Female with Neoplasm of lung Lung nodule . History of non-small cell lung cancer. INDICATION: Initial treatment strategy. COMPARISON: None. CORRELATION: No recent pertinent RESULT: Note- The SUV value is for reference purposes. Due to technical factors and uncontrolled variables, caution is advised when using SUV to differentiate malignant from nonmalignant processes, or to assess follow-up/treatment response. Reference max SUV: Mediastinum blood pool activity: max SUV 2.3 Background liver activity: max SUV 2.7 HEAD AND NECK: 1.0 cm left thyroid lobe nodule on 3:72 is not FDG avid. No pathologically enlarged or hypermetabolic cervical lymphadenopathy. Uptake in the oral cavity, tonsils, salivary glands, extraocular muscles is likely physiologic. Substantially limited evaluation of the intracranial structures due to the physiologic french matter uptake. CHEST: Devices/lines and tubes: None Lungs and tracheobronchial tree: Within the right upper lobe along the major fissure, there is a 3.5 x 5.1 x 5.2 cm mass (AP/transverse/CC; image 110), consistent with biopsy proven lung carcinoma (SUV max 11.1). Right middle lobe extension is suspected with probable obstruction of the lateral segment bronchus and early postobstructive changes. 1 cm pulmonary nodule in the right upper lobe superiorly (image 94, max SUV 1.0) is more conspicuous compared to the referenced chest CT. 1 cm subpleural nodule in the superior segment right lower lobe (image 96; max SUV 1.3). Since FDG PET may have decreased sensitivity for pulmonary nodules <0.8 cm, follow-up chest CT would be suggested, as clinically indicated. Pleura and pericardium: No pleural effusion.No pericardial effusion Mediastinum and Lymph nodes: No hypermetabolic axillary, hilar, or mediastinal lymphadenopathy. Coronary atherosclerosis. Aortic atherosclerosis. Chest wall: No hypermetabolic lesion ABDOMEN AND PELVIS: Physiologic uptake seen in the and GI tracts. Liver: 0.9 cm segment 1 hypodensity on 3:71 is not FDG avid, likely secondary to cysts. Mildly heterogeneous uptake, no definite hypermetabolic lesion. Biliary: No bile duct dilation. Inspissated bile versus sludge. Spleen: No splenomegaly or FDG avidity. Pancreas: No abnormal FDG avidity or duct dilation. Adrenals: No FDG avid lesion. Kidneys: There are small nonobstructing left renal calculi, largest 0.4 cm in the lower pole. No hydronephrosis or hypermetabolic lesions. . GI tract: No dilation or wall thickening. Lymph nodes: No abdominal or pelvic hypermetabolic lymphadenopathy. Mesentery/Peritoneum: No ascites or hypermetabolic mass. Vasculature: Vascular patency cannot be assessed due to lack of IV contrast. There are atherosclerotic calcifications without aneurysmal dilation. Pelvis: No hypermetabolic mass, ascites or fluid collection. Abdominopelvic wall: No hypermetabolic lesion MUSCULOSKELETAL: Within the T10 vertebral body at the right posterior aspect/pedicle, there is an approximately 1.9 x 1.0 cm sclerotic lesion with a 1.0 x 0.5 cm central ovoid lucent lucency, SUV max 2.2 (slightly less conspicuous compared to the normal marrow abdominal). No additional suspicious hypermetabolic osseous lesions. IMPRESSION: Head and Neck: * 1.0 cm left thyroid lobe nodule is not FDG avid. Recommend correlation with thyroid ultrasound, if not recently performed. Chest: * 5.2 cm right upper lobe hypermetabolic mass, consistent with biopsy proven primary lung carcinoma. * Additional small right lung pulmonary nodules in the right upper and lower lobes measure approximately 1 cm, and are not FDG avid. Further workup including follow-up imaging may be performed, as clinically indicated. * No pathologic or FDG avid lymphadenopathy. Abdomen and pelvis: * No evidence of FDG avid neoplastic process * Small nonobstructing left renal calculi measuring up to 0.4 cm. * Atherosclerosis Musculoskeletal: * T10 vertebral body lesion is not significantly FDG avid, metastasis cannot be entirely excluded. If prior studies are not available, characterization with contrast-enhanced thoracic spine MRI is recommended I personally reviewed the images and agree with the above assessment MRI brain negative for metastases MRI of spine pending Reviewed outside images of chest CT which shows a large right upper lobe spiculated mass with compressive atelectasis (not complete lobar collapse), no adenopathy, right lower lobe subpleural nodule PAST MEDICAL HISTORY Diagnosis Date Diabetes type 2, controlled (HCC) Diverticulosis of colon (without mention of hemorrhage) Essential hypertension Hypercholesterolemia Rosacea ALLERGIES Allergen Reactions Demerol [Meperidine* Lactose Other: See Comments Bloating and abdominal pain alendronate (FOSAMAX) 70 mg tablet 70 mg one time a week. rosuvastatin 5 mg cpSP 5 mg once daily. lisinopril (ZESTRIL, PRINIVIL) 20 mg tablet Take 20 mg by mouth once daily. metFORMIN ER (GLUCOPHAGE XR) 500 mg 24 hr tablet 500 mg twice daily. therapeutic multivitamin ORAL tablet Take 1 tablet by mouth once daily. Ca Owyl-S4-Magz-Chndr-Sy Is-Br (NVZBVNK-S6-BYBAHZUU-CHONDROIT) [phone] pw-whee-fi-mg ORAL Tab Take by mouth. Take one(1) tablet daily. Coenzyme T42-Qtkslwv E (COQ10 SG 100) 100-100 mg-unit ORAL Cap Take by mouth. Take one(1) capsule daily. METROLOTION 0.75 % bid face codeine-guaiFENesin (GUAIFENESIN AC) 10-100 mg/5 mL syrup Take 5 mL by mouth three times daily as needed for up to 16 days. 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 Pets: Dogs, cat FAMILY HISTORY Problem Relation Age of Onset Diabetes Mother Hyperlipidemia Mother Cancer Mother Lymphoma Hypertension Father Macular Degen Father Hyperlipidemia Sister Heart Attack Brother Diabetes Maternal Grandfather Stroke Paternal Grandmother PAST SURGICAL HISTORY Procedure Laterality Date COLONOSCOPY FLX DX W/COLLJ SPEC WHEN PFRMD 2008 Colonoscopy COLONOSCOPY FLX DX W/COLLJ SPEC WHEN PFRMD 04/04/2011 Colonoscopy COLONOSCOPY FLX DX W/COLLJ SPEC WHEN PFRMD 10/23/2016 Colonoscopy EXC/DSTRJ LINGUAL TONSIL ANY METHOD SPX PAST SURGICAL HISTORY OF 2005 hysterectomy for prolapsed uterus PAST SURGICAL HISTORY OF approx 1989 left upper arm melanoma PMH, Social history, family history and surgical history reviewed and updated in EMR REVIEW OF SYSTEMS: CONSTITUTIONAL: No fevers, chills, nightsweats, unintended weight loss HEENT: Denies headaches, nasal congestion/sinus symptoms, allergy problems. EYES: No diplopia or blurry vision. No eye pain CARDIOVASCULAR: No chest pain, palpitations, orthopnea, PND, edema. PULM: See HPI. No prior respiratory issues GI: No dysphagia/odynophagia, problematic reflux, constipation, diarrhea, changes in stool habits. : No urinary complaints, including dysuria, gross hematuria or pyuria. NEURO: No new balance problems, peripheral weakness/paresthesias or numbness of concern. No seizures MUSC-SKEL: No new joint pain, swelling, or erythema. PSY: No concerns regarding depression, anxiety INTEGUMENTARY: No new skin changes, or eczema. Skin sensitivity PHYSICAL EXAMINATION: BP 164/80 Pulse 64 Resp 14 Wt 154 lb (69.9kg) SpO2 97% General Appearance: Age-appropriate female no acute distress Skin: Skin color, texture, turgor normal, no suspicious rashes or lesions. Head: Normocephalic, no masses, lesions, tenderness or abnormalities. Eyes: Sclera, conjunctiva normal Oropharynx: No oral lesions, normal dentition, no thrush Neck: No JVD, no masses, no carotid bruits Lungs: Normal to percussion, not labored, no wheezes or crackles Heart: Regular rate and rhythm, no murmurs or gallops Extremities: No edema, no clubbing Musculoskeletal: No joint swelling, deformity, or tenderness. Neurologic: Alert and oriented, no focal findings, gait is normal Lymph Nodes: No cervical lymphadenopathy and No supraclavicular lymphadenopathy. Assessment/Plan: 1. Lung cancer right upper lobe -Clinical stage IIA making this a potentially resectable non-small cell lung cancer -Full set of PFTs to assess for resectability -Pending final MRI report and PFT evaluation, will need referral to thoracic surgery and will likely need cardiac clearance 2. Chronic cough -Due to her lung cancer -Codeine cough syrup to use as needed and prior to bedtime. O[facility] report obtained and reviewed. 3. Lung nodule -Small subpleural right lower lobe nodule not PET avid will need follow-up Sherri Torres MD [facility] [place] documented in this encounter [facility] 02-23-2022 History of Present illness Narrative Oncologic problem(s): 1) cT3 cN0 M0 clinical stage IIB non-small cell lung cancer, adenocarcinoma of the right upper lobe. HPI: The patient is a 76-year-old female who has a past medical history significant for type 2 diabetes (metformin), hypertension and hyperlipidemia. She recently underwent evaluation for a cough which has been persistent for about 3 months. She had no complaints of dyspnea fever or wheezing. A CT of the chest was performed on 01/24/2022. There was a 3.5 x 3.8 x 4.3 cm mass in the right upper lobe. This abutted the right hilar region. There was no demonstrated pleural abnormality. Mediastinum and hilar regions appeared normal otherwise. There were multilevel degenerative changes of thoracic spine with a 1.4 cm area of sclerosis observed in the posterior aspect of the T9 or T12 vertebrae at the level of the pedicle on the right side for which correlation with bone scan was recommended. There was a 1 cm cyst in the medial inferior aspect of the right lobe of the liver. Patient underwent a CT-guided right lung biopsy on 02/06/2022. Pathology: -Non-small cell carcinoma, favor adenocarcinoma consistent with lung primary. Specimen was positive for TTF-1, CK7, CK 8 in rare cells that showed positivity for CK20. Complicated by pneumothorax that required chest tube. Presents for ongoing oncologic management. Interim history: She underwent MRI of the brain which demonstrated no evidence of metastatic disease. PET scan with results noted. She also had an MRI of the thoracic spine. Images have been loaded. Report is pending. Her cough is persistent. It does not wake her at night. Sometimes taking a deep breath will trigger the cough. Occasionally productive of small amounts of clear sputum which occasionally have some brownish flecks in it. She is not had hemoptysis. No wheeze. She is not short of breath at rest but she has noticed some mild dyspnea when she is walking up slopes. She remains very active however and does a lot of hiking. Appetite has remained normal. She is not had any chest pain or pressure. She smoked for a couple years and her early 20s but quit 50 years ago. PMH, medications and allergies personally reviewed by me today. Any changes documented in appropriate section. ROS: Constitutional: Denies episodes of fever and night sweats. Not significantly fatigued. Normal appetite. Neuro: Denies [place], vertigo, dizziness and imbalance. Denies symptoms of neuropathy. HEENT: No recent change in voice, vision or hearing. Resp: See above. CVS: Denies exertional chest pain, PND, orthopnea and LE edema. GI: Denies dysgeusia. Denies symptoms of stomatitis. Denies dysphagia and odynophagia. Denies reflux, n/v, change in bowel habits and abdominal pain. : Denies dysuria or gross hematuria. No symptoms of bladder outlet obstruction. Endo: Denies hot flashes. Denies polyuria and polydipsia. Denies heat and cold intolerance. Musculoskeletal: Arthritic pain of both feet. Derm: Denies rash. Denies jaundice and diffuse pruritis. Heme: Denies unusual bleeding and unexplained bruising. Psych: Normal mood. Social: Quit smoking ~50 years ago. Rare alcohol. Two children. Daughter in [place] and son in [facility]. Family: Mother--?stomach cancer. Sister-- age 12 from acute leukemia. PHYSICAL EXAM: Vitals: Blood pressure 174/100, pulse 66, temperature 36.6 C (97.8 F), weight 69.9 kg (154 lb), SpO2 99 %. Well-appearing and in no acute distress. EYES: Sclerae are anicteric bilaterally. LYMPHATIC: There is no palpable cervical, supraclavicular, axillary or inguinal adenopathy. RESPIRATORY: Inspiratory breath sounds are of normal intensity in all [place]. No rales, wheezes or rhonchi. CARDIOVASCULAR: Rhythm is regular. ABDOMEN: The abdomen is nondistended. No organomegaly. No tenderness. Extremities: No swelling or edema. SKIN: No jaundice or rash. No petechiae. NEUROLOGIC: mechanical lead II-XII are grossly intact. No focal motor weakness. DTRs are symmetric and normal. MUSCULOSKELETAL: No muscle wasting. ASSESSMENT/PLAN: (D49.1) Neoplasm of lung Assessment: -The patient is a 76-year-old female with a history of light smoking who quit 50 years ago. Recently underwent evaluation for a dry, persistent cough and was found to have a mass in the right upper lobe which on biopsy proved to be adenocarcinoma. -KPS is 90 to 100%. - cT3 cN0 M0 clinical stage IIB non-small cell lung cancer, adenocarcinoma of the right upper lobe -Reviewed the results of the PET scan and MRI of the brain with her and her . Unfortunately the thoracic MRI cannot be read as a stat study and we will have a report for 24 to 48 hours. Plan: -If no evidence of metastatic disease on MRI thoracic spine: --Pulmonary evaluation. --Thoracic surgery evaluation.. -US thyroid. Portions of this documentation were copied and pasted from previous office visit notes in order to provide a cohesive continuity of the history. The note has been reviewed and edited and updated as necessary. During this patient visit I have spent approximately 20 minutes out of 25 in counseling regarding test results and coordinating care. Rohan Alvarez DO documented in this encounter [facility] 02-22-2022 Miscellaneous Notes Called [facility], they are going to add this on today with her already scheduled MRI. Fiordaliza faxed the order again. Huyen Pino See her message. Please try calling [facility] first thing this morning to see if MRI thoracic spine can be added on. Rohan Alvarez DO [facility] [place] scheduling was out for the day so I can not get it added on there tomorrow. I will check other locations. EDIT: first available between the 3 locations within [place] that she is willing to go to is not until . Huyen Pino Please schedule Thoracic spine. (Pt is having a brain MRI tomorrow at [facility]) Radha Desai LPN Please let her know the PET scan did not show evidence of cancer outside cancer outside the right lung but there was a spot in her 10th thoracic vertebrae that the radiologist recommended further evaluation with MRI. The spot did not light up like cancer but it could not be entirely excluded by the PET scan alone. I put in stat order for the MRI. Rohan Alvarez DO documented in this encounter [facility] 02-21-2022 Note HNO ID: [id number] Author: RT Sb(R) Service: Radiology Author Type: Technologist Type: Progress Notes Filed: 02/21/2022 7:32 AM Note Text: RADIOLOGY SERVICE PROGRESS NOTE SERVICE DATE: 02/21/2022 SERVICE TIME: 7:31 AM PATIENT IDENTITY VERIFICATION COMPLETED USING TWO (2) STANDARD IDENTIFIERS: Name and Date of confirmed by patient verbally FALL SCREENING: Has the patient had 2 falls in the last year or 1 fall with injury or currently using an Ambulatory Assistive Device (Walker, Cane, Wheelchair, Crutches, etc.)? No PATIENT GENDER DATA: .female : No ALLERGIES: Reviewed and unchanged MEDICATIONS REVIEWED: Yes PATIENT RELEVANT IMPLANT DATA REVIEWED: Not Applicable CREATININE: Creatinine Date Value Ref Range Status 11/06/2016 0.79 0.58 - 0.96 mg/dL Final 09/14/2016 0.67 0.58 - 0.96 mg/dL Final eGFR-All Other Races Date Value Ref Range Status 11/06/2016 >60 . Final Comment: eGFR (Estimated GFR) Units of measure: mL/min/1.73 meters squared eGFR is derived from the reexpressed MDRD Study equation using the following parameters: serum creatinine, age, gender and race. The creatinine assay has been calibrated to be traceable to IDMS. An eGFR <60 mL/min/1.73m2 for >3 months is consistent with chronic kidney disease. Refer to KDOQI guidelines for clinical interpretation. In patients with unstable renal function, e.g. those with acute kidney injury, the eGFR may not accurately reflect actual GFR. eGFR- Date Value Ref Range Status 11/06/2016 >60 Final P.O.C.T. RESULTS: N/A February 21, [address] PERFORMED: No IV SITE: Ambulatory: A peripheral IV was started in the Right hand with a Angio cath: 24 gauge. POST EXAM PIV STATUS: Discontinued PROCEDURE TYPE: NM INJECT: PET/CT BODY SCAN. 10.2 mCi F18 FDG. No other medications given.. ADMINISTRATION TIME: 0720 PATIENT DISCHARGED TO: Ambulatory patient, left [facility] department area. A Diagnostic radioactive procedure has taken place, with no further precautions necessary other than routine body substance precautions. More information regarding radiation safety can be found using this link: [email or web address] [email or web address] SIGNATURE: RT Sb(R) PATIENT NAME: Lidia Ortiz DATE: February 21, 2022 TIME: 7:31 AM PAGER/CONTACT #: [facility] 02-21-2022 History of Present illness Narrative RADIOLOGY SERVICE PROGRESS NOTE SERVICE DATE: 02/21/2022 SERVICE TIME: 7:31 AM PATIENT IDENTITY VERIFICATION COMPLETED USING TWO (2) STANDARD IDENTIFIERS: Name and Date of confirmed by patient verbally FALL SCREENING: Has the patient had 2 falls in the last year or 1 fall with injury or currently using an Ambulatory Assistive Device (Walker, Cane, Wheelchair, Crutches, etc.)? No PATIENT GENDER DATA: .female : No ALLERGIES: Reviewed and unchanged MEDICATIONS REVIEWED: Yes PATIENT RELEVANT IMPLANT DATA REVIEWED: Not Applicable CREATININE: Creatinine Date Value Ref Range Status 11/06/2016 0.79 0.58 - 0.96 mg/dL Final 09/14/2016 0.67 0.58 - 0.96 mg/dL Final eGFR-All Other Races Date Value Ref Range Status 11/06/2016 >60 . Final Comment: eGFR (Estimated GFR) Units of measure: mL/min/1.73 meters squared eGFR is derived from the reexpressed MDRD Study equation using the following parameters: serum creatinine, age, gender and race. The creatinine assay has been calibrated to be traceable to IDMS. An eGFR <60 mL/min/1.73m2 for >3 months is consistent with chronic kidney disease. Refer to KDOQI guidelines for clinical interpretation. In patients with unstable renal function, e.g. those with acute kidney injury, the eGFR may not accurately reflect actual GFR. eGFR- Date Value Ref Range Status 11/06/2016 >60 Final P.O.C.T. RESULTS: N/A February 21, [address] PERFORMED: No IV SITE: Ambulatory: A peripheral IV was started in the Right hand with a Angio cath: 24 gauge. POST EXAM PIV STATUS: Discontinued PROCEDURE TYPE: NM INJECT: PET/CT BODY SCAN. 10.2 mCi F18 FDG. No other medications given.. ADMINISTRATION TIME: 07 PATIENT DISCHARGED TO: Ambulatory patient, left [facility] department area. A Diagnostic radioactive procedure has taken place, with no further precautions necessary other than routine body substance precautions. More information regarding radiation safety can be found using this link: [email or web address] SIGNATURE: RT Sb(R) PATIENT NAME: Lidia Ortiz DATE: February 21, 2022 TIME: 7:31 AM PAGER/CONTACT #: documented in this encounter [facility] 02-13-2022 History of Present illness Narrative Patient referred by [facility] for new diagnosis of non-small cell lung cancer. The impression and plan will be communicated by way of the shared electronic record or faxed under separate cover letter. HPI: The patient is a 76-year-old female who has a past medical history significant for type 2 diabetes (metformin), hypertension and hyperlipidemia. She recently underwent evaluation for a cough which has been persistent for about 3 months. She had no complaints of dyspnea fever or wheezing. A CT of the chest was performed on 01/24/2022. There was a 3.5 x 3.8 x 4.3 cm mass in the right upper lobe. This abutted the right hilar region. There was no demonstrated pleural abnormality. Mediastinum and hilar regions appeared normal otherwise. There were multilevel degenerative changes of thoracic spine with a 1.4 cm area of sclerosis observed in the posterior aspect of the T9 or T12 vertebrae at the level of the pedicle on the right side for which correlation with bone scan was recommended. There was a 1 cm cyst in the medial inferior aspect of the right lobe of the liver. Patient underwent a CT-guided right lung biopsy on 02/06/2022. Pathology: -Non-small cell carcinoma, favor adenocarcinoma consistent with lung primary. Specimen was positive for TTF-1, CK7, CK 8 in rare cells that showed positivity for CK20. Complicated by pneumothorax that now require chest tube. Her cough is persistent. It does not wake her at night. Sometimes taking a deep breath will trigger the cough. Occasionally productive of small amounts of clear sputum which occasionally have some brownish flecks in it. She is not had hemoptysis. No wheeze. She is not short of breath at rest but she has noticed some mild dyspnea when she is walking up slopes. She remains very active however and does a lot of hiking. Appetite has remained normal. She is not had any chest pain or pressure. She smoked for a couple years and her early 20s but quit 50 years ago. PMH, medications and allergies personally reviewed by me today. Any changes documented in appropriate section. ROS: Constitutional: Denies episodes of fever and night sweats. Not significantly fatigued. Normal appetite. Neuro: Denies [place], vertigo, dizziness and imbalance. Denies symptoms of neuropathy. HEENT: No recent change in voice, vision or hearing. Resp: See above. CVS: Denies exertional chest pain, PND, orthopnea and LE edema. GI: Denies dysgeusia. Denies symptoms of stomatitis. Denies dysphagia and odynophagia. Denies reflux, n/v, change in bowel habits and abdominal pain. : Denies dysuria or gross hematuria. No symptoms of bladder outlet obstruction. Endo: Denies hot flashes. Denies polyuria and polydipsia. Denies heat and cold intolerance. Musculoskeletal: Arthritic pain of both feet. Derm: Denies rash. Denies jaundice and diffuse pruritis. Heme: Denies unusual bleeding and unexplained bruising. Psych: Normal mood. Social: Quit smoking ~50 years ago. Rare alcohol. Two children. Daughter in [place] and son in [facility]. Family: Mother--?stomach cancer. Sister-- age 12 from acute leukemia. PHYSICAL EXAM: Vitals: Blood pressure 183/88, pulse 66, temperature 37.2 C (99 F), height 172.3 cm (5' 7.82), weight 69.2 kg (152 lb 8 oz), SpO2 96 %. Well-appearing and in no acute distress. EYES: Sclerae are anicteric bilaterally. LYMPHATIC: There is no palpable cervical, supraclavicular, axillary or inguinal adenopathy. RESPIRATORY: Inspiratory breath sounds are of normal intensity in all pelayo. No rales, wheezes or rhonchi. CARDIOVASCULAR: Rhythm is regular. ABDOMEN: The abdomen is nondistended. No organomegaly. No tenderness. Extremities: No swelling or edema. SKIN: No jaundice or rash. No petechiae. NEUROLOGIC: mechanical lead II-XII are grossly intact. No focal motor weakness. DTRs are symmetric and normal. MUSCULOSKELETAL: No muscle wasting. ASSESSMENT/PLAN: (D49.1) Neoplasm of lung Assessment: -The patient is a 76-year-old female with a history of light smoking who quit 50 years ago. Recently underwent evaluation for a dry, persistent cough and was found to have a mass in the right upper lobe which on biopsy proved to be adenocarcinoma. -KPS is 90 to 100%. -I personally reviewed CT images through the [facility] PACS system and independently verified and agreed with the radiologist's findings. -I reviewed the results of the pathology with her and her . -Discussed the neck steps in work-up are completion of staging and pulmonary evaluation. -Answered all of her, her 's and her daughter's (on speaker phone) questions to their satisfaction. Plan: -PET scan JESUS. -MRI brain. -Orders for pile driver engineer mutations including PD-L1 and MMR analysis sent to pathology lab at [facility]. -Referral to pulmonary medicine. -Office visit following PET scan. I spent a total of 60 minutes on the date of the service which included preparing to see the patient, [id number] patient care, completing clinical documentation, obtaining and/or reviewing separately obtained history, performing a medically appropriate examination, counseling and educating the patient/family/caregiver, ordering medications, tests, or procedures, independently interpreting results (not separately reported) and communicating results to the patient/family/caregiver. Rohan Alvarez DO documented in this encounter [facility] 02-09-2022 Miscellaneous Notes New patient referral received and given to for review. DX: NON-SMALL CELL CARCINOMA REFERRING PROVIDER: MIMI Hope PSS documented in this encounter [facility] Evaluation + Plan note No data available for this section [facility] Evaluation note Diagnosis Neoplasm of lung- Primary Neoplasm of unspecified nature of respiratory system Lung nodule Solitary pulmonary nodule [facility] Neoplasm of lung Neoplasm of unspecified nature of respiratory system Lung nodule Solitary pulmonary nodule [facility] Diagnosis Cancer of trachea, bronchus, and lung (HCC)- Primary Malignant neoplasm of other parts of bronchus or lung Localized swelling, mass and lump, trunk Abnormal positron emission tomography (PET) scan Nonspecific abnormal results of other specified function study [facility] Diagnosis Neoplasm of lung- Primary Neoplasm of unspecified nature of respiratory system [facility] Diagnosis Malignant neoplasm of upper lobe of right lung (HCC)- Primary Malignant neoplasm of upper lobe, bronchus or lung Cough Lung nodule Solitary pulmonary nodule [facility] Diagnosis Malignant neoplasm of upper lobe of right lung (HCC) Malignant neoplasm of upper lobe, bronchus or lung [facility] Diagnosis Malignant neoplasm of upper lobe of right lung (HCC)- Primary Malignant neoplasm of upper lobe, bronchus or lung Abnormal MRI, thoracic spine Nonspecific (abnormal) findings on radiological and other examination of musculoskeletal system [facility] Diagnosis Malignant neoplasm of upper lobe of right lung (HCC)- Primary Malignant neoplasm of upper lobe, bronchus or lung [facility] Diagnosis Malignant neoplasm of upper lobe of right lung (HCC)- Primary Malignant neoplasm of upper lobe, bronchus or lung Bronchiolar disease Other diseases of trachea and bronchus [facility] Diagnosis Malignant neoplasm of middle lobe of right lung (HCC)- Primary Bronchiolar disease Other diseases of trachea and bronchus [facility] Diagnosis Malignant neoplasm of middle lobe of right lung (HCC) [facility] Diagnosis Malignant neoplasm of upper lobe of right lung (HCC)- Primary Malignant neoplasm of upper lobe, bronchus or lung [facility] Diagnosis Cough [facility] Diagnosis Malignant neoplasm of upper lobe of right lung (HCC)- Primary Malignant neoplasm of upper lobe, bronchus or lung Acquired hypothyroidism Unspecified hypothyroidism [facility] Diagnosis Malignant neoplasm of upper lobe of right lung (HCC)- Primary Malignant neoplasm of upper lobe, bronchus or lung [facility] Diagnosis Malignant neoplasm of upper lobe of right lung (HCC)- Primary Malignant neoplasm of upper lobe, bronchus or lung [facility] Diagnosis Malignant neoplasm of upper lobe of right lung (HCC)- Primary Malignant neoplasm of upper lobe, bronchus or lung [facility] Diagnosis Malignant neoplasm of upper lobe of right lung (HCC)- Primary Malignant neoplasm of upper lobe, bronchus or lung [facility] Diagnosis Malignant neoplasm of upper lobe of right lung (HCC)- Primary Malignant neoplasm of upper lobe, bronchus or lung [facility] Diagnosis Malignant neoplasm of unspecified part of unspecified bronchus or lung (HCC) [facility] Diagnosis Malignant neoplasm of middle lobe of right lung (HCC)- Primary [facility] Diagnosis Encounter for preoperative anesthesiology assessment for thoracic surgery- Primary Exertional shortness of breath Shortness of breath Pre-op testing Preoperative examination, unspecified Malignant neoplasm of middle lobe of right lung (HCC) documented in this encounter [facility] note* Diagnosis Preop testing- Primary Preoperative examination, unspecified documented in this encounter [facility] note* Diagnosis Malignant neoplasm of unspecified part of unspecified bronchus or lung (HCC)- Primary documented in this encounter [facility] noteNo assessment information availableWUniversity [facility]als [facility] Work Phone: Evaluation note* Diagnosis Malignant neoplasm of upper lobe of right lung (HCC)- Primary Malignant neoplasm of upper lobe, bronchus or lung [facility] Diagnosis Malignant neoplasm of upper lobe of right lung (HCC)- Primary Malignant neoplasm of upper lobe, bronchus or lung [facility]* Diagnosis Malignant neoplasm of upper lobe of right lung (HCC)- Primary Malignant neoplasm of upper lobe, bronchus or lung Malignant neoplasm of unspecified part of unspecified bronchus or lung (HCC) [facility] Malignant neoplasm of upper lobe of right lung (HCC)- Primary Malignant neoplasm of upper lobe, bronchus or lung Malignant neoplasm of unspecified part of unspecified bronchus or lung (HCC) Chest pain, unspecified type Cardiac murmur Undiagnosed cardiac murmurs [facility] Malignant neoplasm of unspecified part of unspecified bronchus or lung (HCC) Chest pain, unspecified type Cardiac murmur Undiagnosed cardiac murmurs [facility] Diagnosis Malignant neoplasm of unspecified part of unspecified bronchus or lung (HCC)- Primary Malignant neoplasm of upper lobe of right lung (HCC) Malignant neoplasm of upper lobe, bronchus or lung [facility] Diagnosis Onset Date Resolution Status Chest pain acute Essential hypertension chron ic Hyperlipidemia chronic [facility] Work Phone: Evaluation note* Diagnosis Primary lung adenocarcinoma, right (HCC)- Primary Malignant neoplasm of unspecified part of unspecified bronchus or lung (HCC) [facility]* Diagnosis Malignant neoplasm of unspecified part of unspecified bronchus or lung (HCC) Malignant neoplasm of upper lobe of right lung (HCC) Malignant neoplasm of upper lobe, bronchus or lung [facility]* Diagnosis Malignant neoplasm of unspecified part of unspecified bronchus or lung (HCC) [facility]* Diagnosis Primary lung adenocarcinoma, right (HCC)- Primary [facility]* Diagnosis Primary lung adenocarcinoma, right (HCC)- Primary Malignant neoplasm of unspecified part of unspecified bronchus or lung (HCC) [facility]* Diagnosis Malignant neoplasm of upper lobe of right lung (HCC)- Primary Malignant neoplasm of upper lobe, bronchus or lung Malignant neoplasm of unspecified part of unspecified bronchus or lung (HCC) [facility]* Diagnosis Malignant neoplasm of upper lobe of right lung (HCC) Malignant neoplasm of upper lobe, bronchus or lung Malignant neoplasm of unspecified part of unspecified bronchus or lung (HCC) [facility] Diagnosis Malignant neoplasm of unspecified part of unspecified bronchus or lung (HCC)- Primary Lung nodule Solitary pulmonary nodule Primary hypertension Unspecified essential hypertension [facility]* Diagnosis Malignant neoplasm of unspecified part of unspecified bronchus or lung (HCC) Lung nodule Solitary pulmonary nodule documented in this encounter [facility] note* Diagnosis Encounter for follow-up surveillance of lung cancer- Primary Unspecified follow-up examination Malignant neoplasm of unspecified part of unspecified bronchus or lung (HCC) documented in this encounter [facility] note* Diagnosis Malignant neoplasm of upper lobe of right lung (HCC) Malignant neoplasm of upper lobe, bronchus or lung documented in this encounter [facility] note* Diagnosis Bilateral foot pain- Primary Pain in limb [facility]* Diagnosis Posterior tibial tendon dysfunction- Primary Other disorders of synovium, tendon, and bursa Arthritis of midfoot, unspecified laterality Controlled type 2 diabetes mellitus without complication, without long-term current use of insulin (HCC) documented in this encounter [facility] note* Diagnosis Bilateral foot pain Pain in limb [facility]* Diagnosis Osteoarthritis of ankle and foot, unspecified laterality- Primary Posterior tibial tendon dysfunction Other disorders of synovium, tendon, and bursa Arthritis of midfoot, unspecified laterality documented in this encounter [facility] note* Diagnosis Posterior tibial tendon dysfunction- Primary Other disorders of synovium, tendon, and bursa Osteoarthritis of ankle and foot, unspecified laterality documented in this encounter [facility] note* Diagnosis Malignant neoplasm of unspecified part of unspecified bronchus or lung (HCC) documented in this encounter [facility] note* Diagnosis Encounter for follow-up surveillance of lung cancer- Primary Unspecified follow-up examination Malignant neoplasm of unspecified part of unspecified bronchus or lung (HCC) documented in this encounter [facility] note* Diagnosis Acute CVA (cerebrovascular accident) (HCC)- Primary Dizziness Dizziness and giddiness Syncope, unspecified syncope type Headache Photophobia Visual discomfort Cerebrovascular accident (CVA), unspecified mechanism (HCC) documented in this encounter [facility] note* Diagnosis Malignant neoplasm of unspecified part of unspecified bronchus or lung (HCC)- Primary Lung nodule Solitary pulmonary nodule [facility]* Diagnosis Cerebrovascular accident (CVA), unspecified mechanism (HCC)- Primary [facility] No data available for this section [facility] Discharge instructions Additional Instructions Follow-up with your primary care physician Your test today were unremarkable other than a questionable lesion on your thoracic spine seen on the CAT scan which will need further evaluation if this was not already known. [facility] Work Phone: Progress note No data available for this section [facility] Reason for referral (narrative)* Diagnostic Procedure Only (Urgent) - Closed Specialty Diagnoses / Procedures Referred By Justo stiles Referred To Contact MOLECULAR & FUNCTIONAL IMAGING Diagnoses Neoplasm of lung Lung nodule Procedures NM PET/CT SKULL-THIGH INITIAL PET IMAGING CT ATTENUATION SKULL BASE MID-THIGH Rohan Alvarez DO [address] [place] [address] Molecular [facility] Functional [facility] [address] [place] [address] Referral ID Status Reason Start Date Expiration Date V isits Requested Visits Authorized [id number] Closed Auto-Generate d Referral 02/13/2022 03/15/2023 1 1 [facility] for referral (narrative)* Outpatient Procedure (Routine) - Closed Specialty Diagnoses / Procedures Referred By Justo stiles Referred To Contact [facility] Diagnoses Malignant neoplasm of upper lobe of right lung (HCC) Procedures LUNG DIFFUSION CAPACITY (DLCO) DIFFUSING CAPACITY Sherri Torres MD [address] [place] [address] [facility] [place] [address] [place] [address] Referral ID Status Reason Start Date Expiration Date V isits Requested Visits Authorized [id number] Closed Auto-Generate d Referral 02/24/2022 03/26/2023 1 1 * Outpatient Procedure (Routine) - Closed Specialty Diagnoses / Procedures Referred By Galoac t Referred To Contact [facility] [place] Diagnoses Malignant neoplasm of upper lobe of right lung (HCC) Procedures LUNG VOLUMES Sherri Torres MD [address] [place] [address] [facility] [place] [address] [place] [address] Referral ID Status Reason Start Date Expiration Date V isits Requested Visits Authorized [id number] Closed Auto-Generate d Referral 02/24/2022 03/26/2023 1 1 * Outpatient Procedure (Routine) - Closed Specialty Diagnoses / Procedures Referred By Contac t Referred To Contact [facility] [place] Diagnoses Malignant neoplasm of upper lobe of right lung (HCC) Procedures SPIROMETRY WITH DILATOR IF OBSTRUCTED BRNCDILAT RSPSE SPMTRY PRE&POST-BRNCDILAT ADMN Sherri Torres MD [address] [place] [address] [facility] [place] [address] [place] [id number] Referral ID Status Reason Start Date Expiration Date V isits Requested Visits Authorized [id number] Closed Auto-Generate d Referral 02/24/2022 03/26/2023 1 1 [facility] for referral (narrative)* Outpatient Procedure (Urgent) - Pending Review Specialty Diagnoses / Procedures Referred By Contac t Referred To Contact [facility] Diagnoses Malignant neoplasm of upper lobe of right lung (HCC) Procedures ECG COMPLETE ECG ROUTINE ECG W/LEAST 12 LDS W/I&R Rigo Alvarez MD [address] [place] [address] [facility] [address] [address] Referral ID Status Reason Start Date Expiration Date Visits Requested Visits Authorized [id number] Pending Review Auto-Generat ed Referral 03/17/2022 03/17/2023 1 1 [facility] for referral (narrative)* Diagnostic Procedure Only (Routine) - Authorized Specialty Diagnoses / Procedures Referred By Justo t Referred To Contact MOLECULAR & FUNCTIONAL IMAGING Diagnoses Malignant neoplasm of unspecified part of unspecified bronchus or lung (HCC) Chest pain, unspecified type Cardiac murmur Procedures NM PET/CT SKULL-THIGH SUBSEQUENT PET IMAGING CT ATTENUATION SKULL BASE MID-THIGH Rohan Alvarez DO [address] [place] [address] Molecular & Functional Imaging [address] [place] [address] Referral ID Status Reason Start Date Expiration Date Visits Requested Visits Authorized [id number] Authorized Auto-Generat ed Referral 01/09/2023 02/08/2024 1 1 * Outpatient Procedure (Routine) - Authorized Specialty Diagnoses / Procedures Referred By Justo t Referred To Contact [facility]ART [facility] [place] Diagnoses Malignant neoplasm of unspecified part of unspecified bronchus or lung (HCC) Chest pain, unspecified type Cardiac murmur Procedures ECHO ECHO TTHRC R-T 2D W/WOM-MODE COMPL SPEC&COLR D Rohan Alvarez DO [address] [place] [address] [facility] [place] [address] [place] [address] Referral ID Status Reason Start Date Expiration Date Visits Requested Visits Authorized [id number] Authorized Auto-Generat ed Referral 01/09/2023 01/09/2024 1 1 * Outpatient Procedure (Routine) - Pending Review Specialty Diagnoses / Procedures Referred By Jusot stiles Referred To Contact HEART [facility] [place] Diagnoses Malignant neoplasm of unspecified part of unspecified bronchus or lung (HCC) Chest pain, unspecified type Cardiac murmur Procedures ECG COMPLETE ECG ROUTINE ECG W/LEAST 12 LDS W/I&R Rohan Alvarez DO [address] [place] [address] [facility] [place] [address] [place] [address] Referral ID Status Reason Start Date Expiration Date Visits Requested Visits Authorized [id number] Pending Review Auto-Generat ed Referral 01/09/2023 01/09/2024 1 1 [facility] for referral (narrative)* Diagnostic Procedure Only (Routine) - Closed Specialty Diagnoses / Procedures Referred By Contac t Referred To Contact MOLECULAR & FUNCTIONAL IMAGING Diagnoses Malignant neoplasm of unspecified part of unspecified bronchus or lung (HCC) Chest pain, unspecified type Cardiac murmur Procedures NM PET/CT SKULL-THIGH SUBSEQUENT PET IMAGING CT ATTENUATION SKULL BASE MID-THIGH Rohan Alvarez DO [address] [place] [address] Molecular [facility] Functional Imaging [address] [id number] Referral ID Status Reason Start Date Expiration Date V isits Requested Visits Authorized [id number] Closed Auto-Generate d Referral 01/09/2023 02/08/2024 1 1 T [facility] for referral (narrative)* Diagnostic Procedure Only (Routine) - New Request Specialty Diagnoses / Procedures Referred By Contac t Referred To Contact XR IMAGING Diagnoses Bilateral foot pain Procedures XR FOOT GENERAL 3V AP/LAT/OBL BILATERAL RADEX FOOT COMPLETE MINIMUM 3 VIEWS Dory Anderson [address] [place] [address] [place] [address] Referral ID Status Reason Start Date Expiration Date Visits Requested Visits Authorized [id number] New Request Auto-Generat ed Referral 09/27/[address] [facility] for referral (narrative)No reason for referral information availableWUniversity [facility]als [facility] Work Phone: Reason for visit Narrative* Diagnostic Procedure Only (Urgent) - Closed Specialty Diagnoses / Procedures Referred By Contac t Referred To Contact MOLECULAR & FUNCTIONAL IMAGING Diagnoses Neoplasm of lung Lung nodule Procedures NM PET/CT SKULL-THIGH INITIAL PET IMAGING CT ATTENUATION SKULL BASE MID-THIGH Rohan Alvarez, DO [address] [place] [address] Molecular [facility] Functional [facility] [address] [id number] Referral ID Status Reason Start Date Expiration Date V isits Requested Visits Authorized [id number] Closed Auto-Generate d Referral 02/13/2022 03/15/2023 1 1 [facility] for visit Narrative* Diagnostic Procedure Only (Routine) - Closed Specialty Diagnoses / Procedures [facility] To Contact MOLECULAR & FUNCTIONAL IMAGING Diagnoses Malignant neoplasm of unspecified part of unspecified bronchus or lung (HCC) Chest pain, unspecified type Cardiac murmur Procedures NM PET/CT SKULL-THIGH SUBSEQUENT PET IMAGING CT ATTENUATION SKULL BASE MID-THIGH Rohan Alvarez, DO [address] [facility] [place] [address] Molecular & Functional Imaging [address] [place] [address] Referral ID Status Reason Start Date Expiration Date V isits Requested Visits Authorized [id number] Closed Auto-Generate d Referral 01/09/2023 02/08/2024 1 1 [facility] for visit Narrative* Diagnostic Procedure Only (Routine) - Closed Specialty Diagnoses / Procedures [facility] To Contact XR IMAGING Diagnoses Bilateral foot pain Procedures XR FOOT GENERAL 3V AP/LAT/OBL BILATERAL RADEX FOOT COMPLETE MINIMUM 3 VIEWS Dory Anderson [address] [place] [address] [place] [id number] Referral ID Status Reason Start Date Expiration Date V isits Requested Visits Authorized [id number] Closed Auto-Generate d Referral 08/28/2024 09/27/2025 1 1 [facility] for visit Narrative* Auth/Cert (Routine) Specialty Diagnoses / Procedures [facility] To Contact Diagnoses Dizziness Photophobia Headache Acute CVA (cerebrovascular accident) (HCC) Syncope, unspecified syncope type Cerebrovascular accident (CVA), unspecified mechanism (HCC) Referral ID Status Reason Start Date Expiration Date Visits Re quested Visits Authorized [id number] 1 1 [facility] Summary Purpose Family History No Family History Records FoundUnknown Family Member Name Dates Details Family hx of DM, HTN, High c hol, heart disease Status:Active Relationship Condition Age at Onset Recorded Date/T luciano father Abdominal aortic aneurysm (AAA) Unknown mother Diabetes mellitus Unknown Advance Directives No Advanced Directives Records FoundDocuments on File Type Date Recorded Patient Mini Shifter Expl anation Advance Directive(s) 10/23/2016 8:42 AM Documents on File Type Date Recorded Patient Mini Shifter Expl anation Advance Directive(s) 10/23/2016 8:42 AM Documents on File Type Date Recorded Patient Mini Shifter Expl anation Advance Directive(s) 03/08/2022 11:03 AM Advance Directive(s) 10/23/2016 8:42 AM Documents on File Type Date Recorded Patient Mini Shifter Expl anation Advance Directive(s) 03/08/2022 11:03 AM Advance Directive(s) 10/23/2016 8:42 AM Documents on File Type Date Recorded Patient Mini Shifter Expl anation Advance Directive(s) 03/21/2022 1:37 PM Advance Directive(s) 03/08/2022 11:03 AM Advance Directive(s) 10/23/2016 8:42 AM Documents on File Type Date Recorded Patient Mini Shifter Expl anation Advance Directive(s) 03/21/2022 1:37 PM Advance Directive(s) 03/08/2022 11:03 AM Advance Directive(s) 10/23/2016 8:42 AM Documents on File Type Date Recorded Patient Mini Shifter Expl anation Advance Directive(s) 06/23/2022 4:10 PM Advance Directive(s) 06/07/2022 2:10 PM Advance Directive(s) 03/21/2022 1:37 PM Advance Directive(s) 03/08/2022 11:03 AM Advance Directive(s) 10/23/2016 8:42 AM Documents on File Type Date Recorded Patient Mini Shifter Expl anation Advance Directive(s) 06/23/2022 4:10 PM Documents on File Type Date Recorded Patient Mini Shifter Expl anation Advance Directive(s) 06/23/2022 4:10 PM Advance Directive Response Recorded Date/ Time Living Will Yes August 07, 2022 3:05pm Power of Manager Strategic Yes July 3:05pm Name of Medical Power of Manager Strategic MIMI ORTIZ August 07, 2022 3:05pm Advance Directive Response Recorded Date/ Time Living Will Yes August 07, 2022 3:05pm Power of Manager Strategic Yes July 3:05pm Date Activated Date Inactivated Comments 05/28/2025 4:51 PM 05/31/2025 2:59 PM Date Activated Date Inactivated Comments 05/28/2025 4:51 PM 05/31/2025 2:59 PM Instructions Name Dates Details How to access health informa tion online Indication:Nonsmoker Start:13-Aug-2019 Instruction Type:Patient Education How to access health informa tion online - Detail Indication:Nonsmoker Start:13-Aug-2019 Instruction Type:Patient Education Patient Instructions Indication:Nonsmoker Start:13-Aug-2019 Instruction Type:Provider Instructions for Treatment Reason for Referral Specialty Diagnoses / Procedures Referred By Contac t Referred To Contact Pulmonary and Critical Care Medicine Diagnoses Neoplasm of lung Lung nodule Procedures CONSULT TO PULM/CRITICAL CARE OFFICE/OUTPATIENT [facility] 60-74 MINUTES Rohan Alvarez, DO [address] [place] [address] Referral ID Status Reason Start Date Expiration Date Visits Requested Visits Authorized [id number] Authorized PCP Requested Referral 02/13/2022 02/13/2023 1 1 Specialty Diagnoses / Procedures Referred By Contac t Referred To Contact MR IMAGING Diagnoses Neoplasm of lung Lung nodule Procedures MRI BRAIN WO/W IVCON MRI BRAIN BRAIN STEM W/O W/CONTRAST MATERIAL Rohan Alvarez DO [address] [facility] [address] Mr Imaging Referral ID Status Reason Start Date Expiration Date Visits Requested Visits Authorized [id number] Authorized Auto-Generat ed Referral 02/13/2022 03/15/2023 1 1 Specialty Diagnoses / Procedures [facility] Contact MOLECULAR & FUNCTIONAL IMAGING Diagnoses Neoplasm of lung Lung nodule Procedures NM PET/CT SKULL-THIGH INITIAL PET IMAGING CT ATTENUATION SKULL BASE MID-THIGH Rohan Alvarez DO [address] [place] [address] Molecular & Functional Imaging [address] [place] [address] Referral ID Status Reason Start Date Expiration Date Visits Requested Visits Authorized [id number] Authorized Auto-Generat ed Referral 02/13/2022 03/15/2023 1 1 Specialty Diagnoses / Procedures Referred By Contac t Referred To Contact MR IMAGING Diagnoses Localized swelling, mass and lump, trunk Cancer of trachea, bronchus, and lung (HCC) Abnormal positron emission tomography (PET) scan Procedures MRI THORACIC SPINE WO/W IVCON MRI SPINAL CANAL THORACIC W/O & W/CONTR MATRL Rohan Alvarez, DO [address] [place] [address] Mr Imaging Referral ID Status Reason Start Date Expiration Date Visits Requested Visits Authorized [id number] Pending Review Auto-Generat ed Referral 02/21/2022 03/23/2023 1 1 Specialty Diagnoses / Procedures Referred By Contac t Referred To Contact Cardiothoracic Surgery Diagnoses Malignant neoplasm of upper lobe of right lung (HCC) Procedures CONSULT TO CARDIOTHORACIC SURGERY Rohan Alvarez, DO [address] [place] [address] Referral ID Status Reason Start Date Expiration Date Visits Requested Visits Authorized [id number] Ref Not Required PCP Requested Referral 03/16/2022 03/16/2023 1 1 Specialty Diagnoses / Procedures Referred By Contac t Referred To Contact CT IMAGING Diagnoses Malignant neoplasm of unspecified part of unspecified bronchus or lung (HCC) Procedures CT CHEST W IVCON DIAGNOSTIC COMPUTED TOMOGRAPHY THORAX W/CONTRAST Eduardo Lehman MD [address] [place] [address] Ct Imaging Referral ID Status Reason Start Date Expiration Date V isits Requested Visits Authorized [id number] Closed Auto-Generate d Referral 05/08/2022 06/07/2023 1 1 Specialty Diagnoses / Procedures Referred By Contac t Referred To Contact CT IMAGING Diagnoses Malignant neoplasm of unspecified part of unspecified bronchus or lung (HCC) Procedures CT CHEST W IVCON DIAGNOSTIC COMPUTED TOMOGRAPHY THORAX W/CONTRAST Masci, Rohan A, DO [address] [place] [address] Ct Imaging Referral ID Status Reason Start Date Expiration Date Visits Requested Visits Authorized [id number] Authorized Auto-Generat ed Referral 07/11/2022 08/10/2023 1 1 Specialty Diagnoses / Procedures Referred By Contac t Referred To Contact CT IMAGING Diagnoses Malignant neoplasm of unspecified part of unspecified bronchus or lung (HCC) Malignant neoplasm of upper lobe of right lung (HCC) Procedures CT CHEST W IVCON DIAGNOSTIC COMPUTED TOMOGRAPHY THORAX W/CONTRAST Rohan Alvarez A, DO [address] [place] [address] Ct Imaging Referral ID Status Reason Start Date Expiration Date Visits Requested Visits Authorized [id number] Authorized Auto-Generat ed Referral 01/31/2023 03/01/2024 1 1 Referral ID Status Reason Start Date Expiration Date Visits Requested Visits Authorized [id number] Authorized Auto-Generat ed Referral 05/03/2023 06/01/2024 1 1 Specialty Diagnoses / Procedures Referred By Contac t Referred To Contact CT IMAGING Diagnoses Malignant neoplasm of unspecified part of unspecified bronchus or lung (HCC) Malignant neoplasm of upper lobe of right lung (HCC) Procedures CT CHEST W IVCON DIAGNOSTIC COMPUTED TOMOGRAPHY THORAX W/CONTRAST Rohan Alvarez A, DO [address] [place] [address] [place] [address] Referral ID Status Reason Start Date Expiration Date V isits Requested Visits Authorized [id number] Closed Auto-Generate d Referral 01/31/2023 03/01/2024 1 1 Specialty Diagnoses / Procedures Referred By Contac t Referred To Contact CT IMAGING Diagnoses Malignant neoplasm of unspecified part of unspecified bronchus or lung (HCC) Procedures CT CHEST W IVCON DIAGNOSTIC COMPUTED TOMOGRAPHY THORAX W/CONTRAST Rohan Alvarez A, DO [address] [place] [address] [place] [address] Referral ID Status Reason Start Date Expiration Date V isits Requested Visits Authorized [id number] Closed Auto-Generate d Referral 07/11/2022 08/10/2023 1 1 Specialty Diagnoses / Procedures Referred By Contac t Referred To Contact CT IMAGING Diagnoses Malignant neoplasm of upper lobe of right lung (HCC) Malignant neoplasm of unspecified part of unspecified bronchus or lung (HCC) Procedures CT CHEST W IVCON DIAGNOSTIC COMPUTED TOMOGRAPHY THORAX W/CONTRAST Rohan Alvarez, DO [address] [place] [address] [place] [id number] Referral ID Status Reason Start Date Expiration Date Visits Requested Visits Authorized [id number] Authorized Auto-Generat ed Referral 3 12/01/2024 1 1 Specialty Diagnoses / Procedures Referred By Contac t Referred To Contact CT IMAGING Diagnoses Malignant neoplasm of unspecified part of unspecified bronchus or lung (HCC) Lung nodule Procedures CT CHEST W IVCON DIAGNOSTIC COMPUTED TOMOGRAPHY THORAX W/CONTRAST Rohan Alvarez, DO [address] [place] [address] [place] [id number] Referral ID Status Reason Start Date Expiration Date Visits Requested Visits Authorized [id number] Authorized Auto-Generat ed Referral 05/06/2024 06/05/2025 1 1 Specialty Diagnoses / Procedures Referred By Contac t Referred To Contact CT IMAGING Diagnoses Malignant neoplasm of unspecified part of unspecified bronchus or lung (HCC) Procedures CT CHEST W IVCON DIAGNOSTIC COMPUTED TOMOGRAPHY THORAX W/CONTRAST Sarahi Simmons APRN.CNP [address] [place] [address] [place] [address] Referral ID Status Reason Start Date Expiration Date Visits Requested Visits Authorized [id number] Authorized Auto-Generat ed Referral 4 09/04/2025 1 1 Specialty Diagnoses / Procedures Referred By Contac t Referred To Contact [facility] Diagnoses Posterior tibial tendon dysfunction Arthritis of midfoot, unspecified laterality Procedures CONSULT TO PHYSICAL THERAPY PHYSICAL THERAPY EVALUATION HIGH COMPLEX 45 MINS Dory Anderson [address] [place] [address] [facility] [place] [address] [place], [place] [id number] Referral ID Status Reason Start Date Expiration Date Visits Requested Visits Authorized [id number] Authorized PCP Requested Referral Auto-Generate d Referral 09/01/2025 99 99 Specialty Diagnoses / Procedures Referred By Justo stiles Referred To Contact CT IMAGING Diagnoses Malignant neoplasm of unspecified part of unspecified bronchus or lung (HCC) Procedures CT CHEST W IVCON DIAGNOSTIC COMPUTED TOMOGRAPHY THORAX W/CONTRAST Georgiana Hurley [address] [place] [address] [place] [id number] Referral ID Status Reason Start Date Expiration Date Visits Requested Visits Authorized [id number] Authorized Auto-Generat ed Referral 05/20/2025 12/20/2025 1 1 Medications Administered Section Inactive Administered Medications - up to 3 most recent administrations Medication Order MAR Action Action Date Dose Rate Site cyanocobalamin 1,000 mcg injection 1,000 mcg, INTRAMUSCULAR, ONCE, 1 dose, On Sun03/22/22 at 1300 Given 03/22/2022 1:00 PM EDT 1,000 mcg Deltoid, Left Inactive Administered Medications - up to 3 most recent administrations Medication Order MAR Action Action Date Dose Rate Site albuterol 2.5 mg /3 mL (0.083 %) 2.5 mg (PROVENTIL) 2.5 mg, INHALATION, NEEDED, 1 dose, Starting on Sun03/29/22 at 1127, Until Sun03/30/22 at 0303, wheezing/shortness of breath, Preprocedure NaCl 0.9% iv infusion 5-30 mL/hr, INTRAVENOUS, CONTINUOUS, Starting on Sun03/29/22 at 1130, Until Sun03/30/22 at 0303, Preprocedure Inactive Administered Medications - up to 3 most recent administrations Medication Order MAR Action Action Date Dose Rate Site CARBOplatin 606 mg in NaCl 0.9% 335.6 mL (PARAPLATIN) 606 mg (Target AUC = 6), INTRAVENOUS, Administer over 30 Minutes, ONCE, 1 dose, On Sun04/04/22 at 0900, exp 0930 04/05/22 (room temp) Hazardous Chemotherapy Drug: Use appropriate PPE. Antineoplastic Irritant. New Bag/Syringe/Bottle 04/04/2022 9:45 AM EDT 606 mg dexAMETHasone 10 mg/NS 50 mL (PYXIS) 10 mg ivpb (DECADRON) 10 mg, INTRAVENOUS, ONCE, 1 dose, On Sun04/04/22 at 0900, Refrigerate. New Bag/Syringe/Bottle 04/04/2022 9:03 AM EDT 10 mg palonosetron 0.25 mg injection (ALOXI) 0.25 mg, INTRAVENOUS, ONCE, 1 dose, On Sun04/04/22 at 0900, Flush IV line with NS prior to and following administration. Given 04/04/2022 9:04 AM EDT 0.25 mg PEMEtrexed disodium 900 mg in NaCl 0.9% 156 mL (ALIMTA) 900 mg (rounded from 910 mg = 500 mg/m2 1.82 m2 Treatment Plan BSA from Recorded weight), INTRAVENOUS, Administer over 10 Minutes, ONCE, 1 dose, On Sun04/04/22 at 0900, exp 199904/05/22 (room temp) Hazardous Chemotherapy Drug: Use appropriate PPE. New Bag/Syringe/Bottle 04/04/2022 9:28 AM EDT 900 mg Inactive Administered Medications - up to 3 most recent administrations Medication Order MAR Action Action Date Dose Rate Site nivolumab 240 mg in NaCl 0.9% 100 mL (OPDIVO) 240 mg, INTRAVENOUS, Administer over 30 Minutes, ONCE, 1 dose, On Sun04/10/22 at 1500, Administer with 0.2 micron filter. New Bag/Syringe/Bottle 04/10/2022 2:57 PM EDT 240 mg Inactive Administered Medications - up to 3 most recent administrations Medication Order MAR Action Action Date Dose Rate Site CARBOplatin 600 mg in NaCl 0.9% 335 mL (PARAPLATIN) 600 mg (Target AUC = 6), INTRAVENOUS, Administer over 30 Minutes, ONCE, 1 dose, On Sun04/25/22 at 1330, exp 1300 04/26/22 (room temp) Hazardous Chemotherapy Drug: Use appropriate PPE. Antineoplastic Irritant. New Bag/Syringe/Bottle 04/25/2022 2:45 PM EDT 600 mg dexAMETHasone 10 mg/NS 50 mL (PYXIS) 10 mg ivpb (DECADRON) 10 mg, INTRAVENOUS, ONCE, 1 dose, On Sun04/25/22 at 1330, Refrigerate. New Bag/Syringe/Bottle 04/25/2022 1:24 PM EDT 10 mg nivolumab 360 mg in NaCl 0.9% 100 mL (OPDIVO) 360 mg, INTRAVENOUS, Administer over 30 Minutes, ONCE, 1 dose, On Sun04/25/22 at 1330, exp 2200 04/25/22 (room temp) Administer with 0.2 micron filter. New Bag/Syringe/Bottle 04/25/2022 1:56 PM EDT 360 mg palonosetron 0.25 mg injection (ALOXI) 0.25 mg, INTRAVENOUS, ONCE, 1 dose, On Sun04/25/22 at 1330, Flush IV line with NS prior to and following administration. Given 04/25/2022 1:20 PM EDT 0.25 mg PEMEtrexed disodium 900 mg in NaCl 0.9% 146 mL (ALIMTA) 900 mg (rounded from 910 mg = 500 mg/m2 1.82 m2 Treatment Plan BSA from Recorded weight), INTRAVENOUS, Administer over 10 Minutes, ONCE, 1 dose, On Sun04/25/22 at 1330, exp 1300 04/26/22 (room temp) Hazardous Chemotherapy Drug: Use appropriate PPE. New Bag/Syringe/Bottle 04/25/2022 2:32 PM EDT 900 mg Inactive Administered Medications - up to 3 most recent administrations Medication Order MAR Action Action Date Dose Rate Site CARBOplatin 600 mg in NaCl 0.9% 335 mL (PARAPLATIN) 600 mg (Target AUC = 6), INTRAVENOUS, Administer over 30 Minutes, ONCE, 1 dose, On Sun05/16/22 at 0900, exp 0930 05/17/22 (room temp) Hazardous Chemotherapy Drug: Use appropriate PPE. Antineoplastic Irritant. New Bag/Syringe/Bottle 05/16/2022 9:34 AM EDT 600 mg dexAMETHasone 10 mg/NS 50 mL (PYXIS) 10 mg ivpb (DECADRON) 10 mg, INTRAVENOUS, ONCE, 1 dose, On Sun05/16/22 at 0900, Refrigerate. New Bag/Syringe/Bottle 05/16/2022 8:38 AM EDT 10 mg nivolumab 360 mg in NaCl 0.9% 100 mL (OPDIVO) 360 mg, INTRAVENOUS, Administer over 30 Minutes, ONCE, 1 dose, On Sun05/16/22 at 0900, exp 1700 05/16/22 (room temp) Administer with 0.2 micron filter. Protect from light if utilizing refrigerator 7 day expiration. New Bag/Syringe/Bottle 05/16/2022 10:08 AM EDT 360 mg palonosetron 0.25 mg injection (ALOXI) 0.25 mg, INTRAVENOUS, ONCE, 1 dose, On Sun05/16/22 at 0900, Flush IV line with NS prior to and following administration. Given 05/16/2022 8:38 AM EDT 0.25 mg PEMEtrexed disodium 900 mg in NaCl 0.9% 146 mL (ALIMTA) 900 mg (rounded from 910 mg = 500 mg/m2 1.82 m2 Treatment Plan BSA from Recorded weight), INTRAVENOUS, Administer over 10 Minutes, ONCE, 1 dose, On Sun05/16/22 at 0900, exp 0930 05/17/22 (room temp) Hazardous Chemotherapy Drug: Use appropriate PPE. New Bag/Syringe/Bottle 05/16/2022 9:17 AM EDT 900 mg Chief Complaint and Reason for Visit Chief Complaint CP Chief Complaint Amb Documentation Amb Documentation CP/ HTN (TOMCHAK) CHEST PAIN CHEST PAIN Reason for Visit Chest pain Essential hypertension Hyperlipidemia Chief Complaint FASTING Chief Complaint Admit Date ALAYNA March 16, 2025 8:0 0pm Chief Complaint Admit Date ALAYNA March 16, 2025 8:0 0pm FASTING June 15, 2025 11:5 7am Chief Complaint Admit Date FASTING June 15, 2025 11:5 7am LUMBER DDD August 03, 2025 4:16pm Additional Source Comments INFORMATION SOURCE (unrecogn ized section and content) DATE CREATED AUTHOR 07/21/2018 Collin Santiago [facility] DATE CREATED AUTHOR AUTHOR'S ORGANIZ ATION 01/07/2019 [facility] DATE CREATED AUTHOR AUTHOR'S ORGANIZ ATION 06/28/2019 [facility] DATE CREATED AUTHOR AUTHOR'S ORGANIZ ATION 03/01/2022 [facility] ([place]) DATE CREATED AUTHOR AUTHOR'S ORGANIZ ATION 03/25/2022 [facility] DATE CREATED AUTHOR AUTHOR'S ORGANIZ ATION 06/08/2022 [facility] DATE CREATED AUTHOR AUTHOR'S ORGANIZ ATION 01/31/2023 [facility] DATE CREATED AUTHOR AUTHOR'S ORGANIZ ATION 05/03/2025 [facility] DATE CREATED AUTHOR AUTHOR'S ORGANIZ ATION 06/28/2025 [facility] DATE CREATED AUTHOR AUTHOR'S ORGANIZ ATION 06/29/2025 [facility] DATE CREATED AUTHOR AUTHOR'S ORGANIZ ATION 07/04/2025 [facility] DATE CREATED AUTHOR AUTHOR'S ORGANIZ ATION 07/23/2025 [facility] DATE CREATED AUTHOR AUTHOR'S ORGANIZ ATION 10/01/2025 [facility] Source Comments (unrecognize d section and content) In the event this informatio n is protected by the Federal Confidentiality of Alcohol and Drug Abuse Patient Records regulations: The Federal rules restrict any use of the information to criminally investigate or prosecute any alcohol or drug abuse patient.[facility] the event this information is protected by the Federal Confidentiality of Alcohol and Drug Abuse Patient Records regulations: The Federal rules restrict any use of the information to criminally investigate or prosecute any alcohol or drug abuse patient.[facility] the event this information is protected by the Federal Confidentiality of Alcohol and Drug Abuse Patient Records regulations: The Federal rules restrict any use of the information to criminally investigate or prosecute any alcohol or drug abuse patient.[facility] the event this information is protected by the Federal Confidentiality of Alcohol and Drug Abuse Patient Records regulations: The Federal rules restrict any use of the information to criminally investigate or prosecute any alcohol or drug abuse patient.[facility] the event this information is protected by the Federal Confidentiality of Alcohol and Drug Abuse Patient Records regulations: The Federal rules restrict any use of the information to criminally investigate or prosecute any alcohol or drug abuse patient.[facility] the event this information is protected by the Federal Confidentiality of Alcohol and Drug Abuse Patient Records regulations: The Federal rules restrict any use of the information to criminally investigate or prosecute any alcohol or drug abuse patient.[facility] the event this information is protected by the Federal Confidentiality of Alcohol and Drug Abuse Patient Records regulations: The Federal rules restrict any use of the information to criminally investigate or prosecute any alcohol or drug abuse patient.[facility] the event this information is protected by the Federal Confidentiality of Alcohol and Drug Abuse Patient Records regulations: The Federal rules restrict any use of the information to criminally investigate or prosecute any alcohol or drug abuse patient.[facility] the event this information is protected by the Federal Confidentiality of Alcohol and Drug Abuse Patient Records regulations: The Federal rules restrict any use of the information to criminally investigate or prosecute any alcohol or drug abuse patient.[facility] the event this information is protected by the Federal Confidentiality of Alcohol and Drug Abuse Patient Records regulations: The Federal rules restrict any use of the information to criminally investigate or prosecute any alcohol or drug abuse patient.[facility] the event this information is protected by the Federal Confidentiality of Alcohol and Drug Abuse Patient Records regulations: The Federal rules restrict any use of the information to criminally investigate or prosecute any alcohol or drug abuse patient.[facility] Center[facility] the event this information is protected by the Federal Confidentiality of Alcohol and Drug Abuse Patient Records regulations: The Federal rules restrict any use of the information to criminally investigate or prosecute any alcohol or drug abuse patient.[facility] Center[facility] the event this information is protected by the Federal Confidentiality of Alcohol and Drug Abuse Patient Records regulations: The Federal rules restrict any use of the information to criminally investigate or prosecute any alcohol or drug abuse patient.[facility] Center[facility] the event this information is protected by the Federal Confidentiality of Alcohol and Drug Abuse Patient Records regulations: The Federal rules restrict any use of the information to criminally investigate or prosecute any alcohol or drug abuse patient.[facility] Center[facility] the event this information is protected by the Federal Confidentiality of Alcohol and Drug Abuse Patient Records regulations: The Federal rules restrict any use of the information to criminally investigate or prosecute any alcohol or drug abuse patient.[facility] CenterIn the event this information is protected by the Federal Confidentiality of Alcohol and Drug Abuse Patient Records regulations: The Federal rules restrict any use of the information to criminally investigate or prosecute any alcohol or drug abuse patient.[facility] Center[facility] the event this information is protected by the Federal Confidentiality of Alcohol and Drug Abuse Patient Records regulations: The Federal rules restrict any use of the information to criminally investigate or prosecute any alcohol or drug abuse patient.[facility] CenterIn the event this information is protected by the Federal Confidentiality of Alcohol and Drug Abuse Patient Records regulations: The Federal rules restrict any use of the information to criminally investigate or prosecute any alcohol or drug abuse patient.[facility] CenterIn the event this information is protected by the Federal Confidentiality of Alcohol and Drug Abuse Patient Records regulations: The Federal rules restrict any use of the information to criminally investigate or prosecute any alcohol or drug abuse patient.[facility] CenterIn the event this information is protected by the Federal Confidentiality of Alcohol and Drug Abuse Patient Records regulations: The Federal rules restrict any use of the information to criminally investigate or prosecute any alcohol or drug abuse patient.[facility] CenterIn the event this information is protected by the Federal Confidentiality of Alcohol and Drug Abuse Patient Records regulations: The Federal rules restrict any use of the information to criminally investigate or prosecute any alcohol or drug abuse patient.[facility] CenterIn the event this information is protected by the Federal Confidentiality of Alcohol and Drug Abuse Patient Records regulations: The Federal rules restrict any use of the information to criminally investigate or prosecute any alcohol or drug abuse patient.[facility] CenterIn the event this information is protected by the Federal Confidentiality of Alcohol and Drug Abuse Patient Records regulations: The Federal rules restrict any use of the information to criminally investigate or prosecute any alcohol or drug abuse patient.[facility] CenterIn the event this information is protected by the Federal Confidentiality of Alcohol and Drug Abuse Patient Records regulations: The Federal rules restrict any use of the information to criminally investigate or prosecute any alcohol or drug abuse patient.[facility] CenterIn the event this information is protected by the Federal Confidentiality of Alcohol and Drug Abuse Patient Records regulations: The Federal rules restrict any use of the information to criminally investigate or prosecute any alcohol or drug abuse patient.[facility] CenterIn the event this information is protected by the Federal Confidentiality of Alcohol and Drug Abuse Patient Records regulations: The Federal rules restrict any use of the information to criminally investigate or prosecute any alcohol or drug abuse patient.[facility] CenterIn the event this information is protected by the Federal Confidentiality of Alcohol and Drug Abuse Patient Records regulations: The Federal rules restrict any use of the information to criminally investigate or prosecute any alcohol or drug abuse patient.[facility] CenterIn the event this information is protected by the Federal Confidentiality of Alcohol and Drug Abuse Patient Records regulations: The Federal rules restrict any use of the information to criminally investigate or prosecute any alcohol or drug abuse patient.[facility] CenterIn the event this information is protected by the Federal Confidentiality of Alcohol and Drug Abuse Patient Records regulations: The Federal rules restrict any use of the information to criminally investigate or prosecute any alcohol or drug abuse patient.[facility] CenterIn the event this information is protected by the Federal Confidentiality of Alcohol and Drug Abuse Patient Records regulations: The Federal rules restrict any use of the information to criminally investigate or prosecute any alcohol or drug abuse patient.[facility] CenterIn the event this information is protected by the Federal Confidentiality of Alcohol and Drug Abuse Patient Records regulations: The Federal rules restrict any use of the information to criminally investigate or prosecute any alcohol or drug abuse patient.[facility] CenterIn the event this information is protected by the Federal Confidentiality of Alcohol and Drug Abuse Patient Records regulations: The Federal rules restrict any use of the information to criminally investigate or prosecute any alcohol or drug abuse patient.[facility] CenterIn the event this information is protected by the Federal Confidentiality of Alcohol and Drug Abuse Patient Records regulations: The Federal rules restrict any use of the information to criminally investigate or prosecute any alcohol or drug abuse patient.[facility] CenterIn the event this information is protected by the Federal Confidentiality of Alcohol and Drug Abuse Patient Records regulations: The Federal rules restrict any use of the information to criminally investigate or prosecute any alcohol or drug abuse patient.[facility] CenterIn the event this information is protected by the Federal Confidentiality of Alcohol and Drug Abuse Patient Records regulations: The Federal rules restrict any use of the information to criminally investigate or prosecute any alcohol or drug abuse patient.[facility] CenterIn the event this information is protected by the Federal Confidentiality of Alcohol and Drug Abuse Patient Records regulations: The Federal rules restrict any use of the information to criminally investigate or prosecute any alcohol or drug abuse patient.[facility] CenterIn the event this information is protected by the Federal Confidentiality of Alcohol and Drug Abuse Patient Records regulations: The Federal rules restrict any use of the information to criminally investigate or prosecute any alcohol or drug abuse patient.[facility] CenterIn the event this information is protected by the Federal Confidentiality of Alcohol and Drug Abuse Patient Records regulations: The Federal rules restrict any use of the information to criminally investigate or prosecute any alcohol or drug abuse patient.[facility] CenterIn the event this information is protected by the Federal Confidentiality of Alcohol and Drug Abuse Patient Records regulations: The Federal rules restrict any use of the information to criminally investigate or prosecute any alcohol or drug abuse patient.[facility] CenterIn the event this information is protected by the Federal Confidentiality of Alcohol and Drug Abuse Patient Records regulations: The Federal rules restrict any use of the information to criminally investigate or prosecute any alcohol or drug abuse patient.[facility] CenterIn the event this information is protected by the Federal Confidentiality of Alcohol and Drug Abuse Patient Records regulations: The Federal rules restrict any use of the information to criminally investigate or prosecute any alcohol or drug abuse patient.[facility] CenterIn the event this information is protected by the Federal Confidentiality of Alcohol and Drug Abuse Patient Records regulations: The Federal rules restrict any use of the information to criminally investigate or prosecute any alcohol or drug abuse patient.[facility] CenterIn the event this information is protected by the Federal Confidentiality of Alcohol and Drug Abuse Patient Records regulations: The Federal rules restrict any use of the information to criminally investigate or prosecute any alcohol or drug abuse patient.[facility] CenterIn the event this information is protected by the Federal Confidentiality of Alcohol and Drug Abuse Patient Records regulations: The Federal rules restrict any use of the information to criminally investigate or prosecute any alcohol or drug abuse patient.[facility] CenterIn the event this information is protected by the Federal Confidentiality of Alcohol and Drug Abuse Patient Records regulations: The Federal rules restrict any use of the information to criminally investigate or prosecute any alcohol or drug abuse patient.[facility] CenterIn the event this information is protected by the Federal Confidentiality of Alcohol and Drug Abuse Patient Records regulations: The Federal rules restrict any use of the information to criminally investigate or prosecute any alcohol or drug abuse patient.[facility] CenterIn the event this information is protected by the Federal Confidentiality of Alcohol and Drug Abuse Patient Records regulations: The Federal rules restrict any use of the information to criminally investigate or prosecute any alcohol or drug abuse patient.[facility] CenterIn the event this information is protected by the Federal Confidentiality of Alcohol and Drug Abuse Patient Records regulations: The Federal rules restrict any use of the information to criminally investigate or prosecute any alcohol or drug abuse patient.[facility] CenterIn the event this information is protected by the Federal Confidentiality of Alcohol and Drug Abuse Patient Records regulations: The Federal rules restrict any use of the information to criminally investigate or prosecute any alcohol or drug abuse patient.[facility] CenterIn the event this information is protected by the Federal Confidentiality of Alcohol and Drug Abuse Patient Records regulations: The Federal rules restrict any use of the information to criminally investigate or prosecute any alcohol or drug abuse patient.[facility] CenterIn the event this information is protected by the Federal Confidentiality of Alcohol and Drug Abuse Patient Records regulations: The Federal rules restrict any use of the information to criminally investigate or prosecute any alcohol or drug abuse patient.[facility] CenterIn the event this information is protected by the Federal Confidentiality of Alcohol and Drug Abuse Patient Records regulations: The Federal rules restrict any use of the information to criminally investigate or prosecute any alcohol or drug abuse patient.[facility] CenterIn the event this information is protected by the Federal Confidentiality of Alcohol and Drug Abuse Patient Records regulations: The Federal rules restrict any use of the information to criminally investigate or prosecute any alcohol or drug abuse patient.[facility] CenterIn the event this information is protected by the Federal Confidentiality of Alcohol and Drug Abuse Patient Records regulations: The Federal rules restrict any use of the information to criminally investigate or prosecute any alcohol or drug abuse patient.[facility] CenterIn the event this information is protected by the Federal Confidentiality of Alcohol and Drug Abuse Patient Records regulations: The Federal rules restrict any use of the information to criminally investigate or prosecute any alcohol or drug abuse patient.[facility] CenterIn the event this information is protected by the Federal Confidentiality of Alcohol and Drug Abuse Patient Records regulations: The Federal rules restrict any use of the information to criminally investigate or prosecute any alcohol or drug abuse patient.[facility] CenterIn the event this information is protected by the Federal Confidentiality of Alcohol and Drug Abuse Patient Records regulations: The Federal rules restrict any use of the information to criminally investigate or prosecute any alcohol or drug abuse patient.[facility] CenterIn the event this information is protected by the Federal Confidentiality of Alcohol and Drug Abuse Patient Records regulations: The Federal rules restrict any use of the information to criminally investigate or prosecute any alcohol or drug abuse patient.[facility] CenterIn the event this information is protected by the Federal Confidentiality of Alcohol and Drug Abuse Patient Records regulations: The Federal rules restrict any use of the information to criminally investigate or prosecute any alcohol or drug abuse patient.[facility] CenterIn the event this information is protected by the Federal Confidentiality of Alcohol and Drug Abuse Patient Records regulations: The Federal rules restrict any use of the information to criminally investigate or prosecute any alcohol or drug abuse patient.[facility] CenterIn the event this information is protected by the Federal Confidentiality of Alcohol and Drug Abuse Patient Records regulations: The Federal rules restrict any use of the information to criminally investigate or prosecute any alcohol or drug abuse patient.[facility] CenterIn the event this information is protected by the Federal Confidentiality of Alcohol and Drug Abuse Patient Records regulations: The Federal rules restrict any use of the information to criminally investigate or prosecute any alcohol or drug abuse patient.[facility] CenterIn the event this information is protected by the Federal Confidentiality of Alcohol and Drug Abuse Patient Records regulations: The Federal rules restrict any use of the information to criminally investigate or prosecute any alcohol or drug abuse patient.[facility] CenterIn the event this information is protected by the Federal Confidentiality of Alcohol and Drug Abuse Patient Records regulations: The Federal rules restrict any use of the information to criminally investigate or prosecute any alcohol or drug abuse patient.[facility] CenterIn the event this information is protected by the Federal Confidentiality of Alcohol and Drug Abuse Patient Records regulations: The Federal rules restrict any use of the information to criminally investigate or prosecute any alcohol or drug abuse patient.[facility] CenterIn the event this information is protected by the Federal Confidentiality of Alcohol and Drug Abuse Patient Records regulations: The Federal rules restrict any use of the information to criminally investigate or prosecute any alcohol or drug abuse patient.[facility] CenterIn the event this information is protected by the Federal Confidentiality of Alcohol and Drug Abuse Patient Records regulations: The Federal rules restrict any use of the information to criminally investigate or prosecute any alcohol or drug abuse patient.[facility] CenterIn the event this information is protected by the Federal Confidentiality of Alcohol and Drug Abuse Patient Records regulations: The Federal rules restrict any use of the information to criminally investigate or prosecute any alcohol or drug abuse patient.[facility] CenterIn the event this information is protected by the Federal Confidentiality of Alcohol and Drug Abuse Patient Records regulations: The Federal rules restrict any use of the information to criminally investigate or prosecute any alcohol or drug abuse patient.[facility] CenterIn the event this information is protected by the Federal Confidentiality of Alcohol and Drug Abuse Patient Records regulations: The Federal rules restrict any use of the information to criminally investigate or prosecute any alcohol or drug abuse patient.[facility] CenterIn the event this information is protected by the Federal Confidentiality of Alcohol and Drug Abuse Patient Records regulations: The Federal rules restrict any use of the information to criminally investigate or prosecute any alcohol or drug abuse patient.[facility] CenterIn the event this information is protected by the Federal Confidentiality of Alcohol and Drug Abuse Patient Records regulations: The Federal rules restrict any use of the information to criminally investigate or prosecute any alcohol or drug abuse patient.[facility] CenterIn the event this information is protected by the Federal Confidentiality of Alcohol and Drug Abuse Patient Records regulations: The Federal rules restrict any use of the information to criminally investigate or prosecute any alcohol or drug abuse patient.[facility] CenterIn the event this information is protected by the Federal Confidentiality of Alcohol and Drug Abuse Patient Records regulations: The Federal rules restrict any use of the information to criminally investigate or prosecute any alcohol or drug abuse patient.[facility] CenterIn the event this information is protected by the Federal Confidentiality of Alcohol and Drug Abuse Patient Records regulations: The Federal rules restrict any use of the information to criminally investigate or prosecute any alcohol or drug abuse patient.[facility] CenterIn the event this information is protected by the Federal Confidentiality of Alcohol and Drug Abuse Patient Records regulations: The Federal rules restrict any use of the information to criminally investigate or prosecute any alcohol or drug abuse patient.[facility] CenterIn the event this information is protected by the Federal Confidentiality of Alcohol and Drug Abuse Patient Records regulations: The Federal rules restrict any use of the information to criminally investigate or prosecute any alcohol or drug abuse patient.[facility] CenterIn the event this information is protected by the Federal Confidentiality of Alcohol and Drug Abuse Patient Records regulations: The Federal rules restrict any use of the information to criminally investigate or prosecute any alcohol or drug abuse patient.[facility] CenterIn the event this information is protected by the Federal Confidentiality of Alcohol and Drug Abuse Patient Records regulations: The Federal rules restrict any use of the information to criminally investigate or prosecute any alcohol or drug abuse patient.[facility] CenterIn the event this information is protected by the Federal Confidentiality of Alcohol and Drug Abuse Patient Records regulations: The Federal rules restrict any use of the information to criminally investigate or prosecute any alcohol or drug abuse patient.[facility] Reason for Visit (unrecogniz ed section and content) Reason Comments PT Discharge Specialty Diagnoses / Procedures Referred By Contac t Referred To Contact [facility] Diagnoses Posterior tibial tendon dysfunction Arthritis of midfoot, unspecified laterality Procedures CONSULT TO PHYSICAL THERAPY PHYSICAL THERAPY EVALUATION HIGH COMPLEX 45 MINS Dory Anderson [address] [place] [address] [facility] [place] [address] [place] [address] Referral ID Status Reason Start Date Expiration Date Visits Requested Visits Authorized [id number] Authorized PCP Requested Referral Auto-Generate d Referral 4 09/01/2025 99 99 Reason Comments New Patient Reason Comments Radiology NM Specialty Diagnoses / Procedures Referred By Contac t Referred To Contact [facility] Diagnoses Neoplasm of lung Lung nodule Procedures NM PET/CT SKULL-THIGH INITIAL PET IMAGING CT ATTENUATION SKULL BASE MID-THIGH Rohan Alvarez DO [address] [facility] [place] [address] [facility] [address] [place] [address] Referral ID Status Reason Start Date Expiration Date V isits Requested Visits Authorized [id number] Closed Auto-Generate d Referral 02/13/2022 03/15/2023 1 1 Reason Comments Results VBC My Chart Follow-up Reason Comments Established Patient Reason Comments Consult Lung Cancer Specialty Diagnoses / Procedures Referred By Contac t Referred To Contact [facility] Medicine Diagnoses Neoplasm of lung Lung nodule Procedures CONSULT TO PULM/CRITICAL CARE OFFICE/OUTPATIENT [facility] MDM 60-74 MINUTES Rohan Alvarez DO [address] [facility] [place] [address] Referral ID Status Reason Start Date Expiration Date V isits Requested Visits Authorized [id number] Closed PCP Requested Referral 02/13/2022 02/13/2023 1 1 Reason Comments Results Reason Comments Spirometry Specialty Diagnoses / Procedures Referred By Contac t Referred To Contact [facility] Diagnoses Malignant neoplasm of upper lobe of right lung (HCC) Procedures LUNG VOLUMES Sherri Torres MD [address] [place] [address] [address] Referral ID Status Reason Start Date Expiration Date V isits Requested Visits Authorized [id number] Closed Auto-Generate d Referral 02/24/2022 03/26/2023 1 1 Specialty Diagnoses / Procedures Referred By Contac t Referred To Contact [facility] Diagnoses Malignant neoplasm of upper lobe of right lung (HCC) Procedures LUNG DIFFUSION CAPACITY (DLCO) DIFFUSING CAPACITY Sherri Torres MD [address] [place] [address] [address] Referral ID Status Reason Start Date Expiration Date V isits Requested Visits Authorized [id number] Closed Auto-Generate d Referral 02/24/2022 03/26/2023 1 1 Reason Comments Patient Question Reason Comments Bronchoscopy Scheduling EBUS Reason Comments Bronchoscopy Scheduling- CLEARED initial bronch request Reason Comments New Patient Reason Comments Results Reason Comments Follow Up Reason Comments pre op bronch Scheduled and confir med with patient for Bronchoscopy on 03/29/2022. Reason Comments Lung Cancer Reason Comments Reason Comments First Time Treatment Education Carboplat in/Alimta/Opdivo Reason Comments Benefits Investigation Reason Comments Machine Rigger - Other Antiemetic Reason Comments Chemotherapy Treatment Specialty Diagnoses / Procedures Referred By Contac t Referred To Contact Diagnoses Malignant neoplasm of upper lobe of right lung (HCC) Rohan Alvarez DO [address] [place] [address] [facility] [address] [place] [address] Referral ID Status Reason Start Date Expiration Date V isits Requested Visits Authorized [id number] Authorized 03/22/2022 06/20/2022 99 99 Reason Comments Machine Rigger - Other [id number] Post Treat ment Call Referral ID Status Reason Start Date Expiration Date V isits Requested Visits Authorized [id number] Pending Review 03/22/2022 06/20/2022 99 99 Reason Comments Question Specialty Diagnoses / Procedures Referred By Contac t Referred To Contact Diagnoses Malignant neoplasm of upper lobe of right lung (HCC) Rohan Alvarez, DO [address] [place] [address] [facility] [address] [place] [address] Reason Comments Patient Update Symptoms Reason Comments Results UA presumtive UTI Reason Comments Machine Rigger - Other Follow-up Reason Comments Radiology CT Specialty Diagnoses / Procedures Referred By Contac t Referred To Contact CT IMAGING Diagnoses Malignant neoplasm of unspecified part of unspecified bronchus or lung (HCC) Procedures CT CHEST W IVCON DIAGNOSTIC COMPUTED TOMOGRAPHY THORAX W/CONTRAST Eduardo Lehman MD [address] [place] [address] Ct [facility] Referral ID Status Reason Start Date Expiration Date V isits Requested Visits Authorized [id number] Closed Auto-Generate d Referral 05/08/2022 06/07/2023 1 1 Reason Comments Established Patient Follow-Up Reason Comments Pre-Op Exam Reason Comments Opened In Error Reason Comments Established Patient Reason Comments Post Dc Program Call - Fyi Reason Comments Cough Reason Comments Results CXR Reason Comments Established Patient Reason Comments Radiology NM Reason Comments Results PET scan Specialty Diagnoses / Procedures Referred By Contac t Referred To Contact CT IMAGING Diagnoses Malignant neoplasm of unspecified part of unspecified bronchus or lung (HCC) Malignant neoplasm of upper lobe of right lung (HCC) Procedures CT CHEST W IVCON DIAGNOSTIC COMPUTED TOMOGRAPHY THORAX W/CONTRAST Rohan Alvarez, DO [address] [place] [address] [place] [id number] Referral ID Status Reason Start Date Expiration Date V isits Requested Visits Authorized [id number] Closed Auto-Generate d Referral 01/31/2023 03/01/2024 1 1 Specialty Diagnoses / Procedures Referred By Contac t Referred To Contact CT IMAGING Diagnoses Malignant neoplasm of unspecified part of unspecified bronchus or lung (HCC) Procedures CT CHEST W IVCON DIAGNOSTIC COMPUTED TOMOGRAPHY THORAX W/CONTRAST Rohan Alvarez, DO [address] [facility] [place] [address] [place] [address] Referral ID Status Reason Start Date Expiration Date V isits Requested Visits Authorized [id number] Closed Auto-Generate d Referral 07/11/2022 08/10/2023 1 1 Reason Comments Lab Orders Reason Comments Radiology CT Specialty Diagnoses / Procedures Referred By Contac t Referred To Contact CT IMAGING Diagnoses Malignant neoplasm of upper lobe of right lung (HCC) Malignant neoplasm of unspecified part of unspecified bronchus or lung (HCC) Procedures CT CHEST W IVCON DIAGNOSTIC COMPUTED TOMOGRAPHY THORAX W/CONTRAST Rohan lAvarez, DO [address] [facility] [place] [address] Ct Imaging [facility] Referral ID Status Reason Start Date Expiration Date V isits Requested Visits Authorized [id number] Closed Auto-Generate d Referral 11/02/2023 12/01/2024 1 1 Specialty Diagnoses / Procedures Referred By Contac t Referred To Contact CT IMAGING Diagnoses Malignant neoplasm of unspecified part of unspecified bronchus or lung (HCC) Lung nodule Procedures CT CHEST W IVCON DIAGNOSTIC COMPUTED TOMOGRAPHY THORAX W/CONTRAST Rohan Alvarez, DO [address] [place] [address] Ct Imaging [facility] Referral ID Status Reason Start Date Expiration Date V isits Requested Visits Authorized [id number] Closed Auto-Generate d Referral 05/06/2024 06/05/2025 1 1 Reason Comments New Pain Reason Comments PT Eval Specialty Diagnoses / Procedures Referred By Contac t Referred To Contact CT IMAGING Diagnoses Malignant neoplasm of unspecified part of unspecified bronchus or lung (HCC) Procedures CT CHEST W IVCON DIAGNOSTIC COMPUTED TOMOGRAPHY THORAX W/CONTRAST Sarahi Simmons APRN.[employer]MENT SUPERVISOR [address] [place] [address] [place] [address] Referral ID Status Reason Start Date Expiration Date V isits Requested Visits Authorized [id number] Closed Auto-Generate d Referral 11/04/2024 09/04/2025 1 1 Reason Comments avs Reason Comments Follow-up Pt states that she i s doing very well. States that she has been having chills at random times, and having some balance issues as well, thinks it might be a reaction to the medication. States she does not feel dizzy. Care Teams (unrecognized sec tion and content) Dog Bather Relationship Specialty Start Date End Date Mimi [place] [address] PCP - General 08/26/03 Dog Bather Relationship Specialty Start Date End Date Mimi [place] [address] PCP - General 08/26/03 Dog Bather Relationship Specialty Start Date End Date Mimi [place] [address] PCP - General 08/26/03 Dog Bather Relationship Specialty Start Date End Date Mimi [place] [address] PCP - General 08/26/03 Dog Bather Relationship Specialty Start Date End Date Mimi [place] [address] PCP - General 08/26/03 Dog Bather Relationship Specialty Start Date End Date Mimi [place] [address] PCP - General 08/26/03 Dog Bather Relationship Specialty Start Date End Date Mimi [place] [address] PCP - General 08/26/03 Dog Bather Relationship Specialty Start Date End Date Mimi [place] [address] PCP - General 08/26/03 Dog Bather Relationship Specialty Start Date End Date Mimi Quach [address] [place] [address] PCP - General 08/26/03 Dog Bather Relationship Specialty Start Date End Date Mimi Quach [address] [place] [address] PCP - General 08/26/03 Dog Bather Relationship Specialty Start Date End Date Mimi Quach [address] [place] [address] PCP - General 08/26/03 Dog Bather Relationship Specialty Start Date End Date Mimi Quach [address] [place] [address] PCP - General 08/26/03 Dog Bather Relationship Specialty Start Date End Date Mimi Quach [address] [place] [address] PCP - General 08/26/03 Dog Bather Relationship Specialty Start Date End Date Mimi Quach [address] [place] [address] PCP - General 08/26/03 Dog Bather Relationship Specialty Start Date End Date Mimi Quach [address] [place] [address] PCP - General 08/26/03 Dog Bather Relationship Specialty Start Date End Date Mimi Quach [address] [place] [address] PCP - General 08/26/03 Pamela Loredo RN Specialty Machine Rigger Oncology 03/30/22 Dog Bather Relationship Specialty Start Date End Date Mimi Quach [address] [place] [address] PCP - General 08/26/03 Pamela Loredo RN Specialty Machine Rigger Oncology 03/30/22 Dog Bather Relationship Specialty Start Date End Date DerekMimi kathleen [address] [place] [address] PCP - General 08/26/03 Pamela Loredo RN Specialty Machine Rigger Oncology 03/30/22 Dog Bather Relationship Specialty Start Date End Date Mimi Quach [address] [place] [address] PCP - General 08/26/03 Pamela Loredo RN Specialty Machine Rigger Oncology 03/30/22 Dog Bather Relationship Specialty Start Date End Date Mimi Quach [address] [place] [address] PCP - General 08/26/03 Pamela Loredo RN Specialty Machine Rigger Oncology 03/30/22 Dog Bather Relationship Specialty Start Date End Date Mimi Quach [place] [address] PCP - General 08/26/03 Pamela Loredo RN Specialty Machine Rigger Oncology 03/30/22 Juanita Lentz LISW Chain Carrier 04/04/22 Dog Bather Relationship Specialty Start Date End Date Mimi Quach [address] [place] [address] PCP - General 08/26/03 Pamela Loredo RN Specialty Machine Rigger Oncology 03/30/22 Juanita Lentz LISW Chain Carrier 04/04/22 Dog Bather Relationship Specialty Start Date End Date Mimi Quach [address] [place] [address] PCP - General 08/26/03 Pamela Loredo RN Specialty Machine Rigger Oncology 03/30/22 Juanita Lentz LISW Chain Carrier 04/04/22 Dog Bather Relationship Specialty Start Date End Date Mimi Quach [address] [place] [address] PCP - General 08/26/03 Pamela Loredo RN Specialty Machine Rigger Oncology 03/30/22 Juanita Lentz LISW Chain Carrier 04/04/22 Dog Bather Relationship Specialty Start Date End Date Mimi Quach [address] [place] [address] PCP - General 08/26/03 Pamela Loredo RN Specialty Machine Rigger Oncology 03/30/22 Juanita Lentz LISW Chain Carrier 04/04/22 Dog Bather Relationship Specialty Start Date End Date Mimi Quach [address] [place] [address] PCP - General 08/26/03 Pamela Loredo RN Specialty Machine Rigger Oncology 03/30/22 Juanita Lentz LISW Chain Carrier 04/04/22 Dog Bather Relationship Specialty Start Date End Date Mimi Quach [address] [place] [address] PCP - General 08/26/03 Pamela Loredo RN Specialty Machine Rigger Oncology 03/30/22 Juanita Lentz LISW Chain Carrier 04/04/22 Dog Bather Relationship Specialty Start Date End Date Mimi [place] [address] PCP - General 08/26/03 Pamela Loredo RN Specialty Machine Rigger Oncology 03/30/22 Juanita Lentz LISW Chain Carrier 04/04/22 Dog Bather Relationship Specialty Start Date End Date Mimi Quach [address] [place] [address] PCP - General 08/26/03 Pamela Loredo RN Specialty Machine Rigger Oncology 03/30/22 Juanita Lentz LISW Chain Carrier 04/04/22 Dog Bather Relationship Specialty Start Date End Date Mimi Quach [address] [place] [address] PCP - General 08/26/03 Pamela Loredo RN Specialty Machine Rigger Oncology 03/30/22 Juanita Lentz LISW Chain Carrier 04/04/22 Dog Bather Relationship Specialty Start Date End Date Mimi Quach [address] [place] [address] PCP - General 08/26/03 Pamela Loredo RN Specialty Machine Rigger Oncology 03/30/22 Juanita Lentz LISW Chain Carrier 04/04/22 Dog Bather Relationship Specialty Start Date End Date Mimi Quach [address] [place] [address] PCP - General 08/26/03 Pamela Loredo RN Specialty Machine Rigger Oncology 03/30/22 Juanita Lentz RN Chain Carrier 04/04/22 Dog Bather Relationship Specialty Start Date End Date Mimi Quach [address] [place] [address] PCP - General 08/26/03 Pamela Loredo RN Specialty Machine Rigger Oncology 03/30/22 Juanita Lentz RN Chain Carrier 04/04/22 Dog Bather Relationship Specialty Start Date End Date Mimi Quach [address] [place] [address] PCP - General 08/26/03 Pamela Loredo RN Specialty Machine Rigger Oncology 03/30/22 Juanita Lentz RN Chain Carrier 04/04/22 Rohan Alvarez, DO [address] [place], [place] [id number] Hematology/Oncology 06/26/22 Dog Bather Relationship Specialty Start Date End Date Mimi Quach [address] [place] [address] PCP - General 08/26/03 Pamela Loredo RN Specialty Machine Rigger Oncology 03/30/22 Juanita Lentz, RN Chain Carrier 04/04/22 Rohan Alvarez, DO [address] [place] [address] Hematology/Oncology 06/26/22 Dog Bather Relationship Specialty Start Date End Date Mimi Quach [address] [place] [address] PCP - General 08/26/03 Pamela Loredo RN Specialty Machine Rigger Oncology 03/30/22 Juanita Lentz, RN Chain Carrier 04/04/22 Rohan Alvarez, DO [address] [place] [place] [address] Hematology/Oncology 06/26/22 Dog Bather Relationship Specialty Start Date End Date Mimi Quach [place] [address] PCP - General 08/26/03 Pamela Loredo RN Specialty Machine Rigger Oncology 03/30/22 Juanita Lentz, RN Chain Carrier 04/04/22 Rohan Alvarez, DO [address] [place] [place] [address] Hematology/Oncology 06/26/22 Dog Bather Relationship Specialty Start Date End Date Mimi Quach [address] [place] [address] PCP - General 08/26/03 Pamela Loredo RN Specialty Machine Rigger Oncology 03/30/22 Juanita Lentz, RN Chain Carrier 04/04/22 Rohan Alvarez, DO [address] [place] [address] Hematology/Oncology 06/26/22 Dog Bather Relationship Specialty Start Date End Date Mimi [place] [address] PCP - General 08/26/03 Pamela Loredo RN Specialty Machine Rigger Oncology 03/30/22 Juanita Lentz RN Chain Carrier 04/04/22 Rohan Alvarez, DO [address] [place] [address] Hematology/Oncology 06/26/22 Dog Bather Relationship Specialty Start Date End Date Mimi [place] [address] PCP - General 08/26/03 Pamela Loredo RN Specialty Machine Rigger Oncology 03/30/22 Juanita Lentz, ANTON Chain Carrier 04/04/22 Rohan Alvarez, DO [address] [place] [address] Hematology/Oncology 06/26/22 Dog Bather Relationship Specialty Start Date End Date Mimi Quach [address] [place] [address] PCP - General 08/26/03 Pamela Loredo RN Specialty Machine Rigger Oncology 03/30/22 Juanita Lentz, ANTON Chain Carrier 04/04/22 Rohan Alvarez, DO [address] [place] [address] Hematology/Oncology 06/26/22 Dog Bather Relationship Specialty Start Date End Date Mimi Quach [address] [place] [address] PCP - General 08/26/03 Pamela Loredo RN Specialty Machine Rigger Oncology 03/30/22 Juanita Lentz, RN Chain Carrier 04/04/22 Rohan Alvarez, DO [address] [facility] [place] [address] Hematology/Oncology 06/26/22 Dog Bather Relationship Specialty Start Date End Date Mimi Quach [address] [facility] [place] [address] PCP - General 08/26/03 Pamela Loredo RN Specialty Machine Rigger Oncology 03/30/22 Juanita Lentz, RN Chain Carrier 04/04/22 Rohan Alvarez, DO [address] [facility] [place] [address] Hematology/Oncology 06/26/22 Dog Bather Relationship Specialty Start Date End Date Mimi [place] [address] PCP - General 08/26/03 Pamela Loredo RN Specialty Machine Rigger Oncology 03/30/22 Juanita Lentz, RN Chain Carrier 04/04/22 Rohan Alvarez, DO [address] [place] [address] Hematology/Oncology 06/26/22 Team Status: Active Member Role Status Dates Dr. Mimi Quach MD Family Provider Active Dr. iMmi Quach MD Primary Care Provider Active Team Status: Inactive Member Role Status Dates Dr. Mimi Quach MD Primary Care Provider, [facility] Active Dr. Christopher Connors MD Attending Provider Active Team Status: Active Member Role Status Dates Dr. Mimi Quach MD Primary Care Provider Active Trupti Atkins Attending Provider Active Team Status: Active Member Role Status Dates Dr. Mimi Quach MD Primary Care Provider Active Cinthia Perkins Attending Provider Active Team Status: Active Member Role Status Dates Dr. Mimi Quach MD Primary Care Provider Active Dr. Christopher Connors MD Attending Provider, Referring Provider, Other Provider Active Team Status: Inactive Member Role Status Dates Dr. Mimi Quach MD Primary Care Provider Active Dr. Christopher Connors MD Attending Provider, Referring Pro vider Active Dog Bather Relationship Specialty Start Date End Date Mimi Quach MD [address] [place] [address] PCP - General 08/26/03 Pamela Loredo RN Specialty Machine Rigger Oncology 03/30/22 Juanita Lentz, RN Chain Carrier 04/04/22 Rohan Alvarez DO [address] [place] [address] Hematology/Oncology 06/26/22 Dog Bather Relationship Specialty Start Date End Date Mimi Quach MD [address] [place] [address] PCP - General 08/26/03 Pamela Loredo RN Specialty Machine Rigger Oncology 03/30/22 Juanita Lentz, RN Chain Carrier 04/04/22 Rohan Alvarez DO [address] [place] [address] Hematology/Oncology 06/26/22 Dog Bather Relationship Specialty Start Date End Date Mimi Quach MD [address] [place] [address] PCP - General 08/26/03 Pamela Loredo RN Specialty Machine Rigger Oncology 03/30/22 Juanita Lentz, RN Chain Carrier 04/04/22 Rohan Alvarez DO [address] [place] [address] Hematology/Oncology 06/26/22 Dog Bather Relationship Specialty Start Date End Date Mimi Quach MD [address] [place] [address] PCP - General 08/26/03 Pamela Loredo RN Specialty Machine Rigger Oncology 03/30/22 Juanita Lentz, RN Chain Carrier 04/04/22 Rohan Alvraez DO [address] [place] [address] Hematology/Oncology 06/26/22 Dog Bather Relationship Specialty Start Date End Date Mimi Quach MD [address] [place] [address] PCP - General 08/26/03 Pamela Loredo RN Specialty Machine Rigger Oncology 03/30/22 Juanita Lentz RN Chain Carrier 04/04/22 Rohan Alvarez DO [address] [place] [address] Hematology/Oncology 06/26/22 Dog Bather Relationship Specialty Start Date End Date Mimi Quach MD [address] [place] [address] PCP - General 08/26/03 Pamela Loredo RN Specialty Machine Rigger Oncology 03/30/22 Juanita Lentz RN Chain Carrier 04/04/22 Rohan Alvarez DO [address] [place] [address] Hematology/Oncology 06/26/22 Team Status: Active Member Role Status Dates Dr. Mimi Quach MD Family Provider Active Dr. Angy Bautista MD Primary Care Provider Active Team Status: Inactive Member Role Status Dates Dr. Angy Bautista MD Primary Care Prov ider, Attending Provider, Referring Provider Active Dog Bather Relationship Specialty Start Date End Date Mimi Quach MD [address] [place] [address] PCP - General 08/26/03 Pamela Loredo RN Specialty Machine Rigger Oncology 03/30/22 Juanita Lentz, RN Chain Carrier 04/04/22 Rohan Alvarez DO [address] [place] [address] Hematology/Oncology 06/26/22 Dog Bather Relationship Specialty Start Date End Date Angy Bautista MD [address] [place] [address] PCP - General Family Medicine 04/29/24 Pamela Loredo RN Specialty Machine Rigger Oncology 03/30/22 Juanita Lentz, RN Chain Carrier 04/04/22 Rohan Alvarez DO [address] [place] [address] Hematology/Oncology 06/26/22 Dog Bather Relationship Specialty Start Date End Date Angy Bautista MD [address] [place] [address] PCP - General Family Medicine 04/29/24 Pamela Loredo RN Specialty Machine Rigger Oncology 03/30/22 Juanita Lentz, ANTON Chain Carrier 04/04/22 Rohan Alvarez DO [address] [place] [address] Hematology/Oncology 06/26/22 Dog Bather Relationship Specialty Start Date End Date Angy Bautista MD [address] [place] [address] PCP - General Family Medicine 04/29/24 Pamela Loredo RN Specialty Machine Rigger Oncology 03/30/22 Juanita Lentz, RN Chain Carrier 04/04/22 Rohan Alvarez DO [address] [place] [address] Hematology/Oncology 06/26/22 Dog Bather Relationship Specialty Start Date End Date Angy Bautista MD [address] [place] [address] PCP - General Family Medicine 04/29/24 Pamela Loredo RN Specialty Machine Rigger Oncology 03/30/22 Juanita Lentz, RN Chain Carrier 04/04/22 Rohan Alvarez DO [address] [place] [address] Hematology/Oncology 06/26/22 Dog Bather Relationship Specialty Start Date End Date Mimi Quach MD [address] [place] [address] PCP - General 08/26/03 04/28/24 Pamela Loredo RN Specialty Machine Rigger Oncology 03/30/22 Juanita Lentz, ANTON Chain Carrier 04/04/22 Rohan Alvarez DO [address] [place] [address] Hematology/Oncology 06/26/22 Dog Bather Relationship Specialty Start Date End Date Angy Bautista MD [address] [place], [place] [address] PCP - General Family Medicine 04/29/24 Pamela Loredo RN Specialty Machine Rigger Oncology 03/30/22 Juanita Lentz RN Chain Carrier 04/04/22 Rohan Alvarez DO [address] [place] [address] Hematology/Oncology 06/26/22 Dog Bather Relationship Specialty Start Date End Date Angy Bautista MD [address] [place] [address] PCP - General Family Medicine 04/29/24 Pamela Loredo RN Specialty Machine Rigger Oncology 03/30/22 Juanita Lentz RN Chain Carrier 04/04/22 Rohan Alvarez DO [address] [place] [address] Hematology/Oncology 06/26/22 Dog Bather Relationship Specialty Start Date End Date Anyg Bautista MD [address] [place], [place] [address] PCP - General Family Medicine 04/29/24 Pamela Loredo RN Specialty Machine Rigger Oncology 03/30/22 Juanita Lentz RN Chain Carrier 04/04/22 Rohan Alvarez DO [address] [place] [address] Hematology/Oncology 06/26/22 Dog Bather Relationship Specialty Start Date End Date Angy Bautista MD [address] [place] [address] PCP - General Family Medicine 04/29/24 Pamela Loredo RN Specialty Machine Rigger Oncology 03/30/22 Juanita Lentz RN Chain Carrier 04/04/22 Rohan Alvarez DO [address] [place] [address] Hematology/Oncology 06/26/22 Dog Bather Relationship Specialty Start Date End Date Angy Bautista MD [address] [place] [address] PCP - General Family Medicine 04/29/24 Pamela Loredo RN Specialty Machine Rigger Oncology 03/30/22 Juanita Lentz RN Chain Carrier 04/04/22 Rohan Alvarez DO [address] [place] [address] Hematology/Oncology 06/26/22 Dog Bather Relationship Specialty Start Date End Date Angy Bautista MD [address] [place] [address] PCP - General Family Medicine 04/29/24 Pamela Loredo RN Specialty Machine Rigger Oncology 03/30/22 Juanita Lentz RN Chain Carrier 04/04/22 Rohan Alvarez DO [address] [place] [address] Hematology/Oncology 06/26/22 Dog Bather Relationship Specialty Start Date End Date Ferdinand Montague DO [facility] [place] [address] [place] [address] PCP - General Internal Medicine 05/28/25 Team Status: Active Member Role/Relationship Status Dates Dr. Angy Bautista MD Primary Care Provider Active Team Status: Inactive Member Role/Relationship Status Dates Dr. Angy Bautista MD Primary Care Provider Active Start: March 16, 2025 End: March 16, 2025 Dr. Angy Bautista MD Attending Provider Active Start: March 16, 2025 End: March 16, 2025 Dr. Angy Bautista MD Referring Provider Active Start: March 16, 2025 End: March 16, 2025 Team Status: Inactive Member Role/Relationship Status Dates Dr. Angy Bautista MD Primary Care Provider Active Start: June 02, 2025 End: June 02, 2025 KIANA Carbajal Attending Provider Active St art: June 02, 2025 End: June 02, 2025 Team Status: Inactive Member Role/Relationship Status Dates Dr. Angy Bautista MD Primary Care Provider Active Start: June 15, 2025 End: June 15, 2025 Dr. Angy Bautista MD Attending Provider Active Start: June 15, 2025 End: June 15, 2025 Dr. Angy Bautista MD Referring Provider Active Start: June 15, 2025 End: June 15, 2025 Dog Bather Relationship Specialty Start Date End Date Ferdinand MontgaueDO [facility] [address] [address] PCP - General Internal Medicine 05/28/25 Team Status: Active Member Role/Relationship Status Dates Dr. Angy Bautista MD Primary care physician Active Team Status: Inactive Member Role/Relationship Status Dates Dr. Angy Bautista MD Primary care physician Active Start: June 02, 2025 End: June 02, 2025 KIANA Carbajal Attending physician Active S tart: June 02, 2025 End: June 02, 2025 Team Status: Inactive Member Role/Relationship Status Dates Dr. Angy Bautista MD Primary care physician Active Start: June 15, 2025 End: June 15, 2025 Dr. Angy Bautista MD Attending physician Active Start: June 15, 2025 End: June 15, 2025 Dr. Angy Bautista MD Referring Provider Active Start: June 15, 2025 End: June 15, 2025 Team Status: Inactive Member Role/Relationship Status Dates Dr. Angy Bautista MD Primary care physician Active Start: August 03, 2025 End: August 03, 2025 NP. Tanya Mahoney Attending physician Active Sta rt: August 03, 2025 End: August 03, 2025 OVERNIGHT STOCKERDaniel Mahoney Referring Provider Active Star t: August 03, 2025 End: August 03, 2025 Continuous Active and Recently Administ ered Medications (unrecognized section and content) Medication Order 03/27/2022 03/28/2022 03/29/2022 NaCl 0.9% iv infusion 5-30 mL/hr, INTRAVENOUS, CONTINUOUS, Starting on Sun03/29/22 at 1130, Until Svetlana 03/30/22 at 0303, Preprocedure 1130 (Due) PRN Medication Order 03/27/2022 03/28/2022 03/29/2022 albuterol 2.5 mg /3 mL (0.083 %) 2.5 mg (PROVENTIL) 2.5 mg, INHALATION, NEEDED, 1 dose, Starting on Sun03/29/22 at 1127, Until Svetlana 03/30/22 at 0303, wheezing/shortness of breath, Preprocedure Scheduled Medication Order 05/29/2025 05/30/2025 05/31/2025 aspirin chewable tablet 81 mg 81 mg, Oral, Daily, First dose on Sun05/29/25 at 1615, For 21 doses, When able to take PO safely 1607 (Given - Provider: Yony Rahman RN) 0908 (Given - Provider: Shannon Lea RN) 0903 (Given - Provider: Mary Gray, ANTON) carvediloL (COREG) tablet 3.125 mg 3.125 mg, Oral, 2 times daily, First dose on Sun05/31/25 at 1100, Give carvedilol with food to reduce risk of hypotension / dizziness. Separate from admin of SHEN inhibitors by two hours. 1043 (Given - Provider: Mary Gray, ANTON) clopidogreL (PLAVIX) tablet 75 mg 75 mg, Oral, Daily, First dose on Sun05/29/25 at 1615 1607 (Given - Provider: Yony Rahman RN) 09 (Given - Provider: Shannon Lea RN) 902 (Given - Provider: Mary Gray, ANTON) insulin lispro (AdmeLOG,HumaLOG) injection 2 Units (COMPLETED) 2 Units, Subcutaneous, Once, On 05/30/25 at 0115, For 1 dose 0029 (Given - Provider: Kristi Santo, ANTON) isosorbide mononitrate (IMDUR) 24 hr tablet 30 mg 30 mg, Oral, Daily, First dose on 05/31/25 at 1100, Include a nitrate free period DO NOT CRUSH OR CHEW. 1043 (Given - Provider: Mary Gray RN) losartan (COZAAR) tablet 100 mg 100 mg, Oral, Every evening, First dose (after last modification) on 05/30/25 at 0945 09 (Given - Provider: Shannon Lea RN)2003 (Given - Provider: Dorcas Pavon, ANTON) metFORMIN (GLUCOPHAGE-XR) 24 hr tablet 500 mg (COMPLETED) 500 mg, Oral, Once, On 05/31/25 at 1100, For 1 dose, hold for 48 hours following contrast. DO NOT CRUSH OR CHEW. 1043 (Given - Provider: Mary Gray RN) metoprolol succinate (TOPROL-XL) 24 hr tablet 25 mg (CANCELED) 25 mg, Oral, Every evening, First dose (after last modification) on 05/30/25 at 0945, DO NOT CRUSH OR CHEW. 09 (Given - Provider: Shannon Lea RN)2003 (Given - Provider: Dorcas Pavon, ANTON) rosuvastatin (CRESTOR) tablet 10 mg 10 mg, Oral, Nightly, First dose on Svetlana 05/28/25 at 2100 2024 (Given - Provider: Kristi Santo, ANTON) 2003 (Given - Provider: Dorcas Pavon, ANTON) senna-docusate (SENNA-S) 8.6-50 mg per tablet 1 tablet 1 tablet, Oral, 2 times daily, First dose on Svetlana 05/28/25 at 2100, Do not crush or chew. Hold for loose stool and do not give to patients with ABD surgery. Do Not Crush or Chew if administering orally due to bitter taste. May be crushed if given via tube. 0900 (Not Given - Provider: Yony Rahman RN - Reason: Contraindicated)2024 (Given - Provider: Kristi Santo, ANTON) 09 (Given - Provider: Shannon Lea, ANTON)2100 (Not Given - Provider: Dorcas Pavon RN - Reason: Patient/family refused) 09 (Given - Provider: Mary Gray, ANTON) sodium chloride (PF) (NS) flush 5 mL(Linked Group 1) 5 mL, Intravenous, Every 8 hours scheduled, First dose on Sun05/28/25 at 1655, Saline lock 0037 (Given - Provider: Ryan Hernandez RN)0600 (Given - Provider: Ryan Hernandez, ANTON)1400 (Given - Provider: Yony Rahman RN)2200 (Canceled Entry - Provider: Kristi Santo RN) 0202 (Given - Provider: Teetee Pond, ANTON)1400 (Canceled Entry - Provider: Shannon Lea, ANTON)2200 (Given - Provider: Dorcas Pavon, ANTON) 0600 (Canceled Entry - Provider: Dorcas Pavon RN) PRN Medication Order 05/29/2025 05/30/2025 05/31/2025 acetaminophen (TYLENOL) tablet 650 mg 650 mg, Oral, Every 6 hours PRN, headaches, Starting on Sun05/29/25 at 1427 1508 (Given - Provider: Yony Rahman RN)2102 (Given - Provider: Kristi Santo, ANTON) 0717 (Given - Provider: Dorcas Pavon, ANTON) 0350 (Given - Provider: Dorcas Pavon, ANTON) hydrALAZINE (APRESOLINE) injection 10 mg (CANCELED) 10 mg, Intravenous, Every 6 hours PRN, SBP greater than 180/110, Starting on Svetlana 05/28/25 at 1651 0036 (Given - Provider: Ryan Hernandez RN)1203 (Given - Provider: Yony Rahman RN) 0202 (Given - Provider: Teetee Pond, ANTON)0829 (Not Given - Provider: Shannon Lea RN - Reason: Patient/family refused) hydrALAZINE (APRESOLINE) tablet 25 mg 25 mg, Oral, Every 8 hours PRN, other, for SBP>180, Starting on 05/30/25 at 0857 1405 (Given - Provider: Shannon Lea, ANTON) ketorolac (TORADOL) injection 15 mg 15 mg, Intravenous, Every 6 hours PRN, mild pain, Starting on 05/30/25 at 0935, For 48 hours 0956 (Given - Provider: Shannon eLa, ANTON) metoclopramide (REGLAN) injection 5 mg 5 mg, Intravenous, Every 6 hours PRN, heartburn, Starting on 05/30/25 at 1357 1403 (Return to Cabinet - Provider: Shannon Lea RN) ondansetron (ZOFRAN-ODT) disintegrating tablet 4 mg 4 mg, Oral, Every 6 hours PRN, nausea, vomiting, Starting on 05/30/25 at 0313, Orally disintegrating tablet: Open blister pack and place tablet on the tongue; tablet is formulated to dissolve on the tongue without water; do not split tablet. Formulation requires tablet remain in sealed package until immediately prior to dose being administered. 0717 (Given - Provider: Dorcas Pavon, ANTON)1343 (Given - Provider: Shannon Lea RN) prochlorperazine (COMPAZINE) injection 5 mg 5 mg, Intravenous, Every 6 hours PRN, nausea, vomiting, Starting on 05/30/25 at 0933, If IV, give slow IV push at a rate not exceeding 5 mg/minute and remain lying down for 30 minutes to reduce risk of hypotension. If IM, inject deep into outer buttocks quadrant. 0956 (Given - Provider: Shannon Lea RN) sodium chloride (OCEAN) 0.65 % nasal spray 1 spray 1 spray, Each Nare, As needed, irritation, Starting on 05/30/25 at 0313, Upright delivers a spray; Horizontally a stream; Upside down a drop. sodium chloride (PF) (NS) flush 5 mL(Linked Group 2) 5 mL, Intravenous, As needed, line care, Starting on Svetlana 05/28/25 at 1348 sodium chloride (PF) (NS) flush 5 mL(Linked Group 1) 5 mL, Intravenous, As needed, line care, Starting on Svetlana 05/28/25 at 1651 sodium chloride 0.9% (NS)(Linked Group 2) 0-150 mL/hr, Intravenous, As needed, To flush line after IV infusions when no maintenance IV ordered or a compatibility issue. Infuse 20ml at the same rate as the secondary infusion, Starting on Svetlana 05/28/25 at 1348, Run as Primary IV. NOT intended for KVO. sodium chloride 0.9% (NS)(Linked Group 1) 0-150 mL/hr, Intravenous, As needed, To flush line after IV infusions when no maintenance IV ordered or a compatibility issue. Infuse 20ml at the same rate as the secondary infusion, Starting on Svetlana 05/28/25 at 1651, Run as Primary IV. NOT intended for KVO. Linked Groups Order Group 1: Saline lock IV (CANCELED) Routine, Continuous, Starting on Svetlana 05/28/25 at 1652, Until Specified And sodium chloride (PF) (NS) flush 5 mLJump to med 5 mL, Intravenous, As needed, line care, Starting on Svetlana 05/28/25 at 1651 And sodium chloride (PF) (NS) flush 5 mLJump to med 5 mL, Intravenous, Every 8 hours scheduled, First dose on Svetlana 05/28/25 at 1655, Saline lock And sodium chloride 0.9% (NS)Jump to med 0-150 mL/hr, Intravenous, As needed, To flush line after IV infusions when no maintenance IV ordered or a compatibility issue. Infuse 20ml at the same rate as the secondary infusion, Starting on Svetlana 05/28/25 at 1651, Run as Primary IV. NOT intended for KVO. Group 2: Insert peripheral IV (COMPLETED) JESUS, Once, On Svetlana 05/28/25 at 1349, For 1 occurrence And Saline lock IV (CANCELED) JESUS, Once, On Svetlana 05/28/25 at 1349, For 1 occurrence And sodium chloride (PF) (NS) flush 5 mLJump to med 5 mL, Intravenous, As needed, line care, Starting on Svetlana 05/28/25 at 1348 And sodium chloride 0.9% (NS)Jump to med 0-150 mL/hr, Intravenous, As needed, To flush line after IV infusions when no maintenance IV ordered or a compatibility issue. Infuse 20ml at the same rate as the secondary infusion, Starting on Svetlana 05/28/25 at 1348, Run as Primary IV. NOT intended for KVO. <item> Privacy Markings (unrecogniz ed section and content) Section Author: Mame Grier PROHIBITION ON REDISCLOSURE OF CONFIDENTIAL INFORMATION This notice accompanies a disclosure of information concerning a client made to you with the consent of such client. Goals (unrecognized section and content) Goals may be documented in a n alternate section FOR RECORDS PERTAINING TO PATIENTS WHO ARE OR HAVE BEEN ENROLLED IN A CHEMICAL DEPENDENCY/SUBSTANCEABUSE PROGRAM, SOME INFORMATION MAY BE OMITTED. This clinical summary was aggregated from multiple sources. Caution should be exercised in using it in the provision of clinical care. This summary normalizes information from multiple sources, and as a consequence, information in this document may materially change the coding, format and clinical context of patient data. In addition, data may be omitted in some cases. CLINICAL DECISIONS SHOULD BE BASED ON THE PRIMARY CLINICAL RECORDS. [employer] provides no warranty or guarantee of the accuracy or completeness of information in this document.
== END | disposition home or self-care (01) ==
LOC: BFHLAB 15:17
PROVIDERS: PCP Family Medicine; Visit Provider Family Medicine
DX: R31.9 Hematuria, unspecified (principal)
CPT/HCPCS: 87086; 87088

== ENCOUNTER → 2025-10-13 | Outpatient (CLI) | payer MEDICARE, OTHER, SELFPAY | END | disposition home or self-care (01) | LOC: LABSPEC 15:37 | PROVIDERS: PCP Family Medicine; Visit Provider Family Medicine | DX: R31.9 Hematuria, unspecified (principal) | CPT/HCPCS: 87086; 87088 ==